=== PATIENT | female | born 1970 | race Two or more races ===

== ENCOUNTER 2020-07-29 09:50 | Outpatient (REF) | payer MEDICAID, SELFPAY ==
[2020-08-02 15:47] LABS: HPV mRNA E6/E7 rflx Not Detected (Not Detected)
== END 2020-07-29 09:51 | disposition home or self-care (01) ==
LOC: HO.LAB 09:50
PROVIDERS: PCP Internal Medicine; Visit Provider Obstetrics & Gynecology
DX: Z12.4 Encounter for screening for malignant neoplasm of cervix (principal)
CPT/HCPCS: 36415; 87624; 88141; 88142

== ENCOUNTER 2020-08-18 16:18 | Emergency (ER) | payer MEDICAID, SELFPAY ==
[2020-08-18 19:21] VITALS: BP 105/61; PULSE 76; RESP 14; TEMP 35.9; O2SAT 99; BMI 46.6
--- NOTE | 2020-08-18 19:40 | XR_ITS ---
EXAMINATION: X-RAY LEFT SHOULDER X-RAY LEFT ELBOW CLINICAL INFORMATION: Fall, pain COMPARISON: None TECHNIQUE: Left shoulder 3 views. Left elbow 3 views. FINDINGS: Shoulder: No visible acute fracture or dislocation. Mild AC joint arthritis. No abnormal soft tissue calcification. Elbow: Normal alignment. No visible acute fracture or dislocation. No significant joint effusion. XR/XR elbow LT 2V IMPRESSION: No radiographic evidence of discrete acute fracture.
--- NOTE | 2020-08-18 19:40 | XR_ITS ---
EXAMINATION: XR KNEE, LEFT CLINICAL INFORMATION: Fall, pain COMPARISON: None TECHNIQUE: Two views of the left knee. FINDINGS: No visible acute fracture or dislocation. Marginal degenerative spurring. No significant joint effusion. XR/XR knee LT 2V IMPRESSION: Marginal degenerative spurring. No evidence of acute fracture.
--- NOTE | 2020-08-18 19:40 | XR_ITS ---
EXAMINATION: XR CERVICAL SPINE CLINICAL INFORMATION: Fall, pain. COMPARISON: None TECHNIQUE: 5 views FINDINGS: Cervical spine is visualized from C1-C6 level. Normal alignment. No prevertebral soft tissue swelling. No acute fractures seen. Vertebral body heights are maintained. Mild multilevel disc degenerative changes. On the swimmer's view, limiting evaluation of the cervicothoracic junction. Base of the dens is intact. Lung apices appear clear. XR/XR cervical spine 2V IMPRESSION: Cervical spine is visualized from C1-C6 level. No acute fractures evident in the visualized cervical spine.
--- NOTE | 2020-08-18 19:40 | XR_ITS ---
EXAMINATION: XR HIP, LEFT CLINICAL INFORMATION: Fall, left hip pain COMPARISON: None TECHNIQUE: Two views of the left hip. Pelvis one view. FINDINGS: Left hip: No visible acute fracture or dislocation. Joint space is maintained. Pelvis: Right hip joint space is maintained. No visible acute right hip fracture. No discrete pelvic fractures seen. SI joints, symphysis pubis intact. Probable phleboliths in the pelvis. XR/XR hip LT min 2V IMPRESSION: No radiographically evident acute fracture or dislocation.
--- NOTE | 2020-08-18 19:40 | XR_ITS ---
EXAMINATION: X-RAY LEFT SHOULDER X-RAY LEFT ELBOW CLINICAL INFORMATION: Fall, pain COMPARISON: None TECHNIQUE: Left shoulder 3 views. Left elbow 3 views. FINDINGS: Shoulder: No visible acute fracture or dislocation. Mild AC joint arthritis. No abnormal soft tissue calcification. Elbow: Normal alignment. No visible acute fracture or dislocation. No significant joint effusion. XR/XR shoulder LT min 2V IMPRESSION: No radiographic evidence of discrete acute fracture.
--- NOTE | 2020-08-18 19:40 | XR_ITS ---
EXAMINATION: XR CHEST CLINICAL INFORMATION: Fall. Left shoulder pain. COMPARISON: 10/29/2019 TECHNIQUE: 2 views of the chest were obtained. FINDINGS: Heart is enlarged, stable. No focal consolidation, effusion, edema or pneumothorax. No acute rib fractures seen. Thoracic spine degeneration. No acute fractures identified in the thoracic spine.. XR/XR chest 2V IMPRESSION: No evidence of acute process.
--- NOTE | 2020-08-18 21:01 | ED_ITS ---
HPI - Fall General Chief Complaint: Fall Stated Complaint: fall Time Seen by Provider: 08/18/20 19:32 Source: patient Mode of arrival: ambulatory Limitations: no limitations History of Present Illness HPI Narrative: 50-year-old female with past medical history of asthma presents with injury sustained after a slip and fall on the ice. She did not hit her head but reports left elbow, left shoulder, left hip, left knee, and left-sided neck pain. She did not lose consciousness, is able to ambulate without difficulty, denies chest pain and pressure, palpitations, abdominal pain, abdominal distention, dysuria, hematuria, fevers and chills. complaint: fall Onset (ago): hour(s) (Prior to arrival) Fall from: standing Fall witnessed: no Loss of consciousness: none Prolonged down time: no Symptoms prior to fall: none Context: tripped/slipped (Slipped on ice) Location of injury: neck and pelvis Location of injury - extremities: left: shoulder, elbow and knee Severity: moderate Severity scale (1-10): 6 Quality: aching Related Data Home Medications Medication Instructions Recorded Confirmed albuterol sulfate 90 mcg/actuation 2 puff INHALATION Q6H PRN 07/29/20 07/29/20 aerosol inhaler cholecalciferol (vitamin D3) 25 25 mcg PO DAILY 07/29/20 07/29/20 mcg (1,000 unit) capsule fluticasone propionate 110 1 puff INHALATION Q12H 07/29/20 07/29/20 mcg/actuation HFA aerosol inhaler triamcinolone acetonide 0.5 % 1 appl TOPICAL DAILY 07/29/20 07/29/20 topical cream Allergies Allergy/AdvReac Type Severity Reaction Status Date / Time No Known Allergies Allergy Verified 08/18/20 19:21 [No Known Allergies*] Review of Systems Review of Systems: Constitutional: No Fever, No Chills ENT/Mouth: No Ear Pain, No Hoarseness, No sore throat Eyes: No Eye Pain, No Swelling, No Redness, No Foreign Body Cardiovascular: No Chest Pain, No SOB Respiratory: No Cough, No Dyspnea Gastrointestinal: No Nausea, No Vomiting, No Diarrhea, No abdominal Pain Genitourinary: No Dysuria, No Hematuria Musculoskeletal: positive neck, left shoulder, left elbow, left hip, and left knee pain, No Myalgias, No Joint Swelling Skin: No Skin lacerations, No rash Neuro: No Weakness, No Numbness, No Paresthesias, No Loss of Consciousness, No Dizziness, No Headache Psych: No Anxiety/Panic, No Depression Heme/Lymph: no easy bruising, no Lymphadenopathy Endocrine: No Polyuria, No Polydipsia Yes all other systems are reviewed and are negative [facility] Past Medical History Attestation statement: The following information was validated with the patient. Source: old records reviewed Medical History (Updated 08/18/20 @ 21:13 by Iva Clark NP) Asthma Hypovitaminosis D Surgical History History of bilateral tubal ligation History of Hx of cholecystectomy Social History Social History Alcohol intake: current Alcohol intake frequency: does not drink Smoking Status: Current some day smoker Use of substances other than those prescribed or required for medical reasons: No Advance Directives: No Advance Directives Information Provided: Yes Sexual orientation: Straight/Heterosexual Gender identity: female Physical Exam Vital Signs: Vital Signs: Last Vital Signs Temp 96.6 F L 08/18/20 19:21 Pulse 66 08/18/20 21:46 Resp 17 08/18/20 21:46 BP 114/66 08/18/20 21:46 Pulse Ox 96 08/18/20 21:46 Body Mass Index 46.6 Appearance: Alert. Oriented X3. No acute distress. Eyes: Pupils equal, round and reactive to light. ENT: Pharynx normal. Neck: Normal inspection. Neck supple. CVS: Normal heart rate and rhythm. Pulses normal. Respiratory: No respiratory distress. Breath sounds normal. Abdomen: Soft and nontender. Skin: Skin warm and dry. Normal skin color. Normal skin turgor. Extremities: No lower extremity edema. Neuro: No motor deficit. No sensory deficit. Course Course Course Narrative: 50-year-old female with past medical history of asthma presents with injury sustained from a slip and fall on the ice today. Is she did not hit her head, did not lose consciousness, and did not have a prolonged down time. She reports neck pain, left shoulder, left elbow, left hip and left knee pain. No focal neural deficits, cranial nerves 2-12 intact, no indication of cauda equina, gait well balanced well coordinated. Plan of care is for x- rays. Vital signs note that her temperature is 96.6?, this is incorrect her temperature is 97.9? oral taken by this LIGHT RAIL TRANSIT OPERATOR. X-rays negative for acute findings requiring emergent intervention. Plan of care is to discharge home with Tylenol and Motrin, follow-up with primary care as needed. Patient verbalized understanding of and agrees to plan of care to discharge home. MDM - Fall Differential Diagnosis Differential diagnosis: Likely dislocation, fracture and compression fracture Medical Records Attestation: I reviewed the patient's medical records. Lab Data Attestation: I reviewed the patient's lab results. Imaging Data Cervical spine x-ray: Attestation: I personally reviewed and interpreted this imaging study as follows: Radiologist's impression: EXAMINATION: XR CERVICAL SPINE CLINICAL INFORMATION: Fall, pain. COMPARISON: None TECHNIQUE: 5 views FINDINGS: Cervical spine is visualized from C1-C6 level. Normal alignment. No prevertebral soft tissue swelling. No acute fractures seen. Vertebral body heights are maintained. Mild multilevel disc degenerative changes. On the swimmer's view, limiting evaluation of the cervicothoracic junction. Base of the dens is intact. Lung apices appear clear. XR/XR cervical spine 2V IMPRESSION: Cervical spine is visualized from C1-C6 level. No acute fractures evident in the visualized cervical spine. Chest x-ray: Attestation: I personally reviewed and interpreted this imaging study as follows: Radiologist's impression: EXAMINATION: XR CHEST CLINICAL INFORMATION: Fall. Left shoulder pain. COMPARISON: 10/29/2019 TECHNIQUE: 2 views of the chest were obtained. FINDINGS: Heart is enlarged, stable. No focal consolidation, effusion, edema or pneumothorax. No acute rib fractures seen. Thoracic spine degeneration. No acute fractures identified in the thoracic spine.. XR/XR chest 2V IMPRESSION: No evidence of acute process. Shoulder and elbow x-ray: Attestation: I personally reviewed and interpreted this imaging study as follows: Radiologist's impression: EXAMINATION: X-RAY LEFT SHOULDER X-RAY LEFT ELBOW CLINICAL INFORMATION: Fall, pain COMPARISON: None TECHNIQUE: Left shoulder 3 views. Left elbow 3 views. FINDINGS: Shoulder: No visible acute fracture or dislocation. Mild AC joint arthritis. No abnormal soft tissue calcification. Elbow: Normal alignment. No visible acute fracture or dislocation. No significant joint effusion. XR/XR shoulder LT min 2V IMPRESSION: No radiographic evidence of discrete acute fracture. Hip and knee x-ray: Attestation: I personally reviewed and interpreted this imaging study as follows: Radiologist's impression: EXAMINATION: XR HIP, LEFT CLINICAL INFORMATION: Fall, left hip pain COMPARISON: None TECHNIQUE: Two views of the left hip. Pelvis one view. FINDINGS: Left hip: No visible acute fracture or dislocation. Joint space is maintained. Pelvis: Right hip joint space is maintained. No visible acute right hip fracture. No discrete pelvic fractures seen. SI joints, symphysis pubis intact. Probable phleboliths in the pelvis. XR/XR hip LT min 2V IMPRESSION: No radiographically evident acute fracture or dislocation. Discharge Plan Discharge Clinical Impression: Fall Qualifiers: Encounter type: initial encounter Qualified Code(s): W19.XXXA - Unspecified fall, initial encounter Patient Disposition: Home, Self-Care Instructions: Cervical Strain (ED), Shoulder Pain (ED) Additional Instructions: Usted fue evaluado por lesiones sufridas por un resbal?n y ca?da sobre el hielo. Las radiograf?as del nitza, el hombro geeta del t?rax, el codo geeta, la cadera izquierda y la rodilla izquierda son negativas para los hallazgos a gudos que requieren angelic intervenci?n emergente. Si el dolor persiste, por favor rocky un seguimiento con angeles m?dico de atenci?n primaria. Use Tylenol y Motrin seg?n sea necesario para el dolor. Por favor considere hacer un seguimiento con [employer] si el dolor de hombro contin?a. Llame y pida angelic jose. Lucy por elegir johan departamento de emergencias para la evaluaci?n. Por favor, rocky un seguimiento con el m?dico de atenci?n primaria seg?n sea necesario. Regrese al servicio de urgencias para cualquier s?ntoma nuevo, preocupante o que empeore. You were evaluated for injury sustained from a slip and fall on the ice. X-rays of the neck, chest left shoulder, left elbow, left hip and left knee are negative for acute findings requiring emergent intervention. If pain persists please follow-up with your primary care physician. Use Tylenol and Motrin as needed for pain. Please consider following up with Orthopedics if shoulder pain continues. Please call and ask for an appointment. Thank you for choosing this emergency department for evaluation. Please follow-up with primary care physician as needed. Return to the emergency department for any new, concerning, or worsening symptoms. Prescriptions: No Action triamcinolone acetonide 0.5 % cream 1 appl topical DAILY RF: 0 cholecalciferol (vitamin D3) 25 mcg (1,000 unit) capsule 25 mcg PO DAILY RF: 0 albuterol sulfate 90 mcg/actuation HFA aerosol inhaler 2 puff inhalation Q6H PRNRF: 0 Flovent HFA 110 mcg/actuation HFA aerosol inhaler 1 puff inhalation Q12H RF: 0 Referrals: Ian Vargas PA-C [Physician Custodial Maintenance Worker] - 2 days (Left shoulder injury from fall) Interventions: ED Discharge Assessment Last Done: 08/18/20 21:47 Discharge Date/Time: 08/18/20 22:15
[2020-08-18 21:46] VITALS: BP 114/66; PULSE 66; RESP 17; O2SAT 96
== END 2020-08-18 22:15 | disposition home or self-care (01) ==
PROVIDERS: Emergency Provider Emergency Medicine; PCP Internal Medicine
DX: S16.1XXA Strain of muscle, fascia and tendon at neck level, initial encounter (principal); W00.0XXA Fall on same level due to ice and snow, initial encounter; G89.11 Acute pain due to trauma; M25.512 Pain in left shoulder; M25.522 Pain in left elbow; M25.552 Pain in left hip; M25.562 Pain in left knee; F17.200 Nicotine dependence, unspecified, uncomplicated; Y93.9 Activity, unspecified; Y92.014 Private driveway to single-family (private) house as the place of occurrence of the external cause; Y99.9 Unspecified external cause status
CPT/HCPCS: 71046; 72040; 73030; 73070; 73502; 73560; 99283; 99284

== ENCOUNTER 2020-09-13 15:44 | Emergency (ER) | payer MEDICAID, SELFPAY ==
--- NOTE | ~2020-09-13 | XR_ITS ---
EXAMINATION: XR CHEST CLINICAL INFORMATION: Chest pain COMPARISON: Chest x-ray 08/18/2020 TECHNIQUE: 2 views of the chest were obtained. FINDINGS: The heart size is enlarged. No acute changes of the chest. There is no pulmonary vascular congestion. There is no focal airspace disease. There is no pleural effusion and there is no pneumothorax. There is mild degenerative spondylosis of spine. There are surgical clips in the upper abdomen. XR/XR chest 2V IMPRESSION: Cardiomegaly. No acute abnormality of chest.
--- NOTE | 2020-09-13 15:50 | ECG_ITS ---
Test Reason : CHEST PAIN Blood Pressure : / mmHG Vent. Rate : 063 BPM Atrial Rate : 063 BPM P-R Int : 160 ms QRS Dur : 074 ms QT Int : 402 ms P-R-T Axes : 050 038 035 degrees QTc Int : 411 ms Normal sinus rhythm Normal ECG When compared with ECG of 29-OCT-2019 19:08, No significant change was found Referred By: Generic ED Physician Electronically Signed By:KAIT MCMILLAN
[2020-09-13 15:51] VITALS: BP 117/55; PULSE 66; RESP 18; TEMP 36.7; O2SAT 97; BMI 34.8
[2020-09-13 16:29] LABS: MANUAL DIFF FLAG NO
[2020-09-13 16:37] LABS: Basophils Percent Auto 0.4 % (0-2); Eosinophils Absolute Auto 0.2 X10*3/uL (0.0-0.4); Eosinophils Percent Auto 2.8 % (0-4); Hematocrit 40.8 % (37-47); Hemoglobin 13.7 g/dl (12.0-16.0); Imm Gran Abs Auto 0.02 X10*3/uL (0.00-0.03); Imm Gran Pct Auto 0.2 % (0.0-0.4); Lymphocytes Absolute Auto 1.9 X10*3/uL (1.2-4.9); Lymphocytes Percent Auto 22.7 % (20-40); Mean Corpuscular HGB Conc 33.6 g/dl (31.0-35.0); Mean Corpuscular Hemoglobin 31.6 pg (27.0-33.0); Mean Corpuscular Volume 94.2 fL (80-98); Mean Platelet Volume 10.9 fL (9.4-12.3); Monocytes Absolute Auto 0.5 X10*3/uL (0.1-1.2); Monocytes Percent Auto 6.6 % (2-11); Neutrophils Absolute Auto 5.5 X10*3/uL (2.0-8.3); Neutrophils Percent Auto 67.3 % (45-73); Platelet Count 211 X10*3/uL (160-400); Red Blood Count 4.33 X10*6/uL (4.20-5.50); Red Cell Distribution Width 12.3 % (11.0-16.0); White Blood Count 8.2 X10*3/uL (4.8-10.8)
[2020-09-13 16:52] LABS: Anion Gap 12 (12-20); Blood Urea Nitrogen 14 mg/dL (9-16); Carbon Dioxide 27 mmol/L (22-29); Chloride 107 mmol/L (96-108); Creatinine Clr Calc Pharmacy 102.8; Estimated Glomerular Filt Rate > 60; Glucose Random 88 mg/dL (60-115); Potassium 4.2 mmol/L (3.3-5.1); Sodium 142 mmol/L (135-145)
[2020-09-13 16:57] LABS: Troponin-I High Sensitivity < 3.5 ng/L (<3.5-17.0)
[2020-09-13 20:00] VITALS: BP 119/52; PULSE 61; RESP 16; TEMP 36.9; O2SAT 98
--- NOTE | 2020-09-13 21:05 | ED.CHESTPAIN ---
HPI - Chest Pain General Chief Complaint: Chest Pain Stated Complaint: Chest pain Source: patient Mode of arrival: ambulatory Limitations: language barrier History of Present Illness HPI narrative: 50-year-old female with past medical history of asthma and cholecystectomy presents with intermittent sharp left-sided chest pain that woke her up this morning. This pain is not associated with fevers or chills, shortness of breath, palpitations, abdominal pain, abdominal distention, dysuria, hematuria, melena, hematochezia, edema, dizziness, lightheadedness, or diaphoresis. Related Data Home Medications Medication Instructions Recorded Confirmed albuterol sulfate 90 mcg/actuation 2 puff INHALATION Q6H PRN 07/29/20 07/29/20 aerosol inhaler cholecalciferol (vitamin D3) 25 25 mcg PO DAILY 07/29/20 07/29/20 mcg (1,000 unit) capsule fluticasone propionate 110 1 puff INHALATION Q12H 07/29/20 07/29/20 mcg/actuation HFA aerosol inhaler triamcinolone acetonide 0.5 % 1 appl TOPICAL DAILY 07/29/20 07/29/20 topical cream Allergies Allergy/AdvReac Type Severity Reaction Status Date / Time No Known Allergies Allergy Verified 09/13/20 15:51 [No Known Allergies*] Review of Systems Review of Systems: Constitutional: No Weight loss, No Fever, No Chills, No Night Sweats, No Fatigue, No Malaise ENT/Mouth: No Hearing loss, No Ear Pain, No Nasal Congestion, No Sinus Pain, No Hoarseness, No sore throat, No Rhinorrhea, No Swallowing Difficulty Eyes: No Eye Pain, No Swelling, No Redness, No Foreign Body, No Discharge, No Vision Changes Cardiovascular: Positive intermittent sharp left-sided chest Pain, no SOB, no Dyspnea on Exertion, No Orthopnea, No Edema, No Palpitations Respiratory: No Cough, No Sputum, No Wheezing, No Smoke Exposure, No Dyspnea Gastrointestinal: No Nausea, No Vomiting, No Diarrhea, No abdominal Pain, No Hematochezia, No Melena Genitourinary: No irregular bleeding, No Dysuria, No Urinary Frequency, No Hematuria, No Urinary Incontinence, No Urgency, No Flank Pain, No Urinary Flow Changes, No Hesitancy Musculoskeletal: No joint pain, No Myalgias, No Joint Swelling Skin: No Skin Lesions, No rash Neuro: No Weakness, No Numbness, No Paresthesias, No Loss of Consciousness, No Dizziness, No Headache Psych: No Anxiety/Panic, No Depression, No SI/HI/AH/VH Heme/Lymph: No Bruising, No Bleeding,No Lymphadenopathy Endocrine: No Polyuria, No Polydipsia, No Temperature Intolerance Yes all other systems are reviewed and are negative [facility] Past Medical History Attestation statement: The following information was validated with the patient. Source: old records reviewed Medical History Asthma Hypovitaminosis D Surgical History History of bilateral tubal ligation History of Hx of cholecystectomy Social History Social History Alcohol intake: never Smoking Status: Never smoker Use of substances other than those prescribed or required for medical reasons: No Advance Directives: No Advance Directives Information Provided: Yes Sexual orientation: Straight/Heterosexual Gender identity: female Physical Exam Vital Signs: Vital Signs: Last Vital Signs Temp 98.4 F 09/13/20 20:00 Pulse 61 09/13/20 20:00 Resp 16 09/13/20 20:00 BP 119/52 L 09/13/20 20:00 Pulse Ox 98 09/13/20 20:00 Body Mass Index 34.8 Appearance: Alert. Oriented X3. No acute distress. Eyes: Pupils equal, round and reactive to light. EOMI, sclera nonicteric ENT: Pharynx normal. Moist mucous membranes Neck: Normal inspection. Neck supple. No JVD CVS: Normal heart rate and rhythm. Pulses normal. Reproducible pain to the left chest wall on palpation Respiratory: No respiratory distress. Lung sounds clear to auscultation all lobes Abdomen: Soft and nontender. Skin: Skin warm and dry. Normal skin color. Normal skin turgor. Extremities: No lower extremity edema. Moves all extremities against resistance Neuro: No motor deficit. No sensory deficit. Cranial nerves 2-12 intact, gait well balanced well coordinated Course Course Course Narrative: 50-year-old female with past medical history of asthma and cholecystectomy presents with intermittent sharp left-sided chest pain that is reproducible on palpation. Lab values are unremarkable, troponin is negative, EKG is normal sinus, chest x-ray shows cardiomegaly with spondylosis of the spine which are chronic findings. Wells PE score is 0, highly unlikely that this is ACS. COVID test is negative. Discussion with patient regarding plan of care discharge home, aircraft design engineer utilized for all correspondence, Google translate utilized for discharge instructions. Patient verbalized understanding of and agrees to plan of care. MDM - Chest Pain Differential Diagnosis Differential diagnosis: Likely fracture of rib, pneumothorax, atypical chest pain, st elevation myocardial infarction, costochondritis and chest pain Medical Records Data Attestation: I reviewed the patient's medical records. Lab Data Attestation: I reviewed the patient's lab results. Result diagrams: 09/13/20 16:02 09/13/20 16:02 Labs: Lab Results 09/13/20 09/13/20 09/13/20 Range/Units 16:02 16:02 16:02 WBC 8.2 (4.8-10.8) X10*3/uL RBC 4.33 (4.20-5.50) X10*6/uL Hgb 13.7 (12.0-16.0) g/dl Hct 40.8 (37-47) % MCV 94.2 (80-98) fL MCH 31.6 (27.0-33.0) pg MCHC 33.6 (31.0-35.0) g/dl RDW 12.3 (11.0-16.0) % Plt Count 211 (160-400) X10*3/uL MPV 10.9 (9.4-12.3) fL Immature Gran % (Auto) 0.2 (0.0-0.4) % Neut % (Auto) 67.3 (45-73) % Lymph % (Auto) 22.7 (20-40) % [place] % (Auto) 6.6 (2-11) % Eos % (Auto) 2.8 (0-4) % Baso % (Auto) 0.4 (0-2) % Lymph # (Auto) 1.9 (1.2-4.9) X10*3/uL [place] # (Auto) 0.5 (0.1-1.2) X10*3/uL Eos # (Auto) 0.2 (0.0-0.4) X10*3/uL Baso # (Auto) 0.0 (0.0-0.2) X10*3/uL Abs Immat Gran (auto) 0.02 (0.00-0.03) X10*3/uL Absolute Neuts (auto) 5.5 (2.0-8.3) X10*3/uL Absolute Nucleated RBC 0.000 (0.0-0.012) X10*3/uL Nucleated RBC % (auto) 0.0 (0.0-0.2) /100WBC Hold Blue Top SEE NOTE Sodium 142 (135-145) mmol/L Potassium 4.2 (3.3-5.1) mmol/L Chloride 107 (96-108) mmol/L Carbon Dioxide 27 (22-29) mmol/L Anion Gap 12 (12-20) BUN 14 (9-16) mg/dL Creatinine 0.72 (0.5-1.4) mg/dL Estim Creat Clear Calc 102.8 Estimated GFR > 60 Random Glucose 88 (60-115) mg/dL Calcium 9.0 (8.4-10.2) mg/dL Troponin I High Sens (<3.5-17.0) ng/L COVID-19 ([facility]) (Negative) COVID-19 Clin Com 09/13/20 09/13/20 Range/Units 16:02 21:10 WBC (4.8-10.8) X10*3/uL RBC (4.20-5.50) X10*6/uL Hgb (12.0-16.0) g/dl Hct (37-47) % MCV (80-98) fL MCH (27.0-33.0) pg MCHC (31.0-35.0) g/dl RDW (11.0-16.0) % Plt Count (160-400) X10*3/uL MPV (9.4-12.3) fL Immature Gran % (Auto) (0.0-0.4) % Neut % (Auto) (45-73) % Lymph % (Auto) (20-40) % [place] % (Auto) (2-11) % Eos % (Auto) (0-4) % Baso % (Auto) (0-2) % Lymph # (Auto) (1.2-4.9) X10*3/uL [place] # (Auto) (0.1-1.2) X10*3/uL Eos # (Auto) (0.0-0.4) X10*3/uL Baso # (Auto) (0.0-0.2) X10*3/uL Abs Immat Gran (auto) (0.00-0.03) X10*3/uL Absolute Neuts (auto) (2.0-8.3) X10*3/uL Absolute Nucleated RBC (0.0-0.012) X10*3/uL Nucleated RBC % (auto) (0.0-0.2) /100WBC Hold Blue Top Sodium (135-145) mmol/L Potassium (3.3-5.1) mmol/L Chloride (96-108) mmol/L Carbon Dioxide (22-29) mmol/L Anion Gap (12-20) BUN (9-16) mg/dL Creatinine (0.5-1.4) mg/dL Estim Creat Clear Calc Estimated GFR Random Glucose (60-115) mg/dL Calcium (8.4-10.2) mg/dL Troponin I High Sens < 3.5 (<3.5-17.0) ng/L COVID-19 ([facility]) Negative (Negative) COVID-19 Clin Com See Note Imaging Data Chest x-ray: Attestation: I personally reviewed and interpreted this imaging study as follows: Radiologist's impression: EXAMINATION: XR CHEST CLINICAL INFORMATION: Chest pain COMPARISON: Chest x-ray 08/18/2020 TECHNIQUE: 2 views of the chest were obtained. FINDINGS: The heart size is enlarged. No acute changes of the chest. There is no pulmonary vascular congestion. There is no focal airspace disease. There is no pleural effusion and there is no pneumothorax. There is mild degenerative spondylosis of spine. There are surgical clips in the upper abdomen. XR/XR chest 2V IMPRESSION: Cardiomegaly. No acute abnormality of chest. ECG Data ECG #1: Attestation: I personally reviewed and interpreted this ECG as follows: ECG interpretation date: 09/13/20 ECG interpretation time: 15:53 Interpretation: Ventricular rate 63 beats per minute, SD interval 160, QRS 74, QT 402, QTC 411, normal sinus rhythm, normal EKG prior EKG is unavailable secondary to system 130 error Scores Heart Score History: -1- moderately suspicious ECG: -0- normal Age: -1- >45 - <65 Risk factory: -1- 1 or 2 risk factors Troponin: -0- < or = normal limit Score: 3 Risk: 1.7% Wells DVT Alternative Dx as likely as or more likely than DVT: -2 Score: -2 2-tier Risk: unlikely risk (5%) 3-tier Risk: low risk (3%) Discharge Plan Discharge Clinical Impression: Atypical chest pain Patient Disposition: Home, Self-Care Instructions: Noncardiac Chest Pain (ED) Additional Instructions: Te evaluaron para detectar un dolor everardo intermitente en el lado geeta de la pared tor?cica. El electrocardiograma es el ritmo sinusal normal, la troponina que es angelic enzima card?chantal es negativa. Los valores de laboratorio son normales. La prueba covid es negativa. La radiograf?a de t?rax muestra un coraz?n agrandado cr?josephine sin hallazgos que requieran angelic intervenci?n emergente. Por favor, rocky un seguimiento con angeles m?dico de atenci?n primaria esta semana para un mayor trabajo. Regrese al servicio de emergencias inmediatamente si el dolor persiste o para cualquier s?ntoma emergente. Lucy por elegir johan departamento de emergencias para angeles evaluaci?n. Por favor, rocky un seguimiento con el m?dico de atenci?n primaria seg?n sea necesario. Regrese al servicio de emergencias para cualquier s?ntoma nuevo, preocupante o que empeore. You were evaluated for an intermittent sharp pain to the left side of the chest wall. EKG is normal sinus rhythm, your troponin which is a cardiac enzyme is negative. Your lab values are all normal. Your COVID test is negative. Your chest x-ray shows chronic enlarged heart without findings requiring emergent intervention. Please follow-up with your primary care physician this week for further workup. Return to the emergency department immediately if pain persists or for any emergent symptoms. Thank you for choosing this emergency department for evaluation. Please follow-up with primary care physician as needed. Return to the emergency department for any new, concerning, or worsening symptoms. Prescriptions: No Action triamcinolone acetonide 0.5 % cream 1 appl topical DAILY RF: 0 cholecalciferol (vitamin D3) 25 mcg (1,000 unit) capsule 25 mcg PO DAILY RF: 0 albuterol sulfate 90 mcg/actuation HFA aerosol inhaler 2 puff inhalation Q6H PRNRF: 0 Flovent HFA 110 mcg/actuation HFA aerosol inhaler 1 puff inhalation Q12H RF: 0 Interventions: ED Discharge Assessment Last Done: 09/13/20 22:50 Discharge Date/Time: 09/13/20 22:51
[2020-09-13 21:38] LABS: COVID-19 Test Negative (Negative)
== END 2020-09-13 22:51 | disposition home or self-care (01) ==
PROVIDERS: Nurse Practitioner Family; Emergency Provider Emergency Medicine; PCP Internal Medicine
DX: R07.89 Other chest pain (principal); Z20.822 Contact with and (suspected) exposure to COVID-19; J45.909 Unspecified asthma, uncomplicated; Z90.49 Acquired absence of other specified parts of digestive tract
CPT/HCPCS: 36415; 71046; 80048; 84484; 85025; 87635; 93005; 99284

== ENCOUNTER → 2020-10-22 11:38 | Outpatient (BNVA) | payer MEDICAID, SELFPAY | PROVIDERS: PCP Internal Medicine; Visit Provider Nurse Practitioner ==

== ENCOUNTER 2020-12-08 10:18 | Day surgery (SDC) | payer MEDICAID, SELFPAY ==
[2020-12-02 11:34] VITALS: BMI 48.4
--- NOTE | 2020-12-07 10:35 | P.CONAN_ITS ---
Documented by User: Alexus Mini 12/07/20 10:36 HPI - Anesthesia Eval Consult details Narrative: 50yo F for Colonoscopy PMFSH Active Problems Active Problems: All Active Problems (Updated 10/22/20 @ 11:42 by KERRI Pope) Colon cancer screening (Acute) Well woman exam (Acute) Past Medical History Medical History Asthma Hypovitaminosis D Surgical History Surgical History History of bilateral tubal ligation History of Hx of cholecystectomy Social History Social History (Updated 10/22/20 @ 11:41 by Yasmin Calvillo CMA) Household Members: Children Alcohol intake: current Alcohol intake frequency: holidays/special occasions only Use of substances other than those prescribed or required for medical reasons: No Have you been hit, kicked, punched, or otherwise hurt by someone within the past year? 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 Sexual orientation: Straight/Heterosexual Gender identity: female Meds Allergies Allergy/AdvReac Type Severity Reaction Status Date / Time No Known Allergies Allergy Verified 12/02/20 11:33 [No Known Allergies*] Home Medications Medication Instructions Recorded Confirmed Last Taken Type albuterol sulfate 90 mcg/actuation 2 puff INHALATION Q6H PRN 07/29/20 12/02/20 Unknown History aerosol inhaler cholecalciferol (vitamin D3) 25 25 mcg PO DAILY 07/29/20 12/02/20 Unknown History mcg (1,000 unit) capsule fluticasone propionate 110 1 puff INHALATION Q12H 07/29/20 12/08/20 12/08/20 History mcg/actuation HFA aerosol inhaler triamcinolone acetonide 0.5 % 1 appl TOPICAL DAILY 07/29/20 12/02/20 Unknown History topical cream ergocalciferol (vitamin D2) 1 cap PO QWEEK 12/02/20 12/02/20 Unknown History Exam Exam Date and Time: December 07, 2020 1035 Height,Weight and Vital Signs: Height 5 ft 2 in Weight 120.202 kg Pertinent Lab Results Pertinent Lab Results: Laboratory Tests 09/13/20 09/13/20 16:02 16:02 WBC 8.2 Hgb 13.7 Hct 40.8 Plt Count 211 Sodium 142 Potassium 4.2 Chloride 107 Carbon Dioxide 27 BUN 14 Creatinine 0.72 Narrative Narrative: EKG 09/2020 Vent. Rate : 063 BPM Atrial Rate : 063 BPM P-R Int : 160 ms QRS Dur : 074 ms QT Int : 402 ms P-R-T Axes : 050 038 035 degrees QTc Int : 411 ms Normal sinus rhythm Normal ECG When compared with ECG of 29-OCT-2019 19:08, No significant change was found Assessment and Plan Assessment Anesthesia Assessment: Chart Reviewed Documented by User: Pina Gamez 12/08/20 11:27 [facility] Past Medical History Medical History Asthma Hypovitaminosis D Surgical History Surgical History History of bilateral tubal ligation History of Hx of cholecystectomy Social History Social History (Updated 10/22/20 @ 11:41 by Yasmin Calvillo CMA) Household Members: Children Alcohol intake: current Alcohol intake frequency: holidays/special occasions only Use of substances other than those prescribed or required for medical reasons: No Have you been hit, kicked, punched, or otherwise hurt by someone within the past year? 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 Sexual orientation: Straight/Heterosexual Gender identity: female Meds Allergies Allergy/AdvReac Type Severity Reaction Status Date / Time No Known Allergies Allergy Verified 12/02/20 11:33 [No Known Allergies*] Home Medications Medication Instructions Recorded Confirmed Last Taken Type albuterol sulfate 90 mcg/actuation 2 puff INHALATION Q6H PRN 07/29/20 12/02/20 U nknown History aerosol inhaler cholecalciferol (vitamin D3) 25 25 mcg PO DAILY 07/29/20 12/02/20 Unknown History mcg (1,000 unit) capsule fluticasone propionate 110 1 puff INHALATION Q12H 07/29/20 12/08/20 12/08/20 History mcg/actuation HFA aerosol inhaler triamcinolone acetonide 0.5 % 1 appl TOPICAL DAILY 07/29/20 12/02/20 Unknown History topical cream ergocalciferol (vitamin D2) 1 cap PO QWEEK 12/02/20 12/02/20 Unknown History Exam Airway Mallampati Class: II TM Dist: >3cm Neck ROM: Full Heart: RRR Lungs: CTA Assessment and Plan Assessment Anesthesia Assessment: Anesthesia Plan Discussed and Chart Reviewed Final Anesthetic Review NPO: Yes (Inhaler) ASA Class: III Final Preanesthetic Review: No Changes in Pt Med Stat and Consent Obtained/Reviewed Patient Risk: Intermediate Procedure Risk: Intermediate Anesthetic Plan Anesthetic Plan: MAC: Disposition: Standard PACU
[2020-12-08 10:39] VITALS: BP 127/82; PULSE 70; RESP 16; TEMP 36.4; O2SAT 100
[2020-12-08] MEDS: Lactated Ringers 1,000 ML 100 ML IVCONT (10:59)
--- NOTE | 2020-12-08 11:18 | MHC.SHP ---
Pre-Procedural Eval Section B Chief Complaint: Screening Relevant Family History (Specify if Yes): No Relevant Social History: None Present Medications: see Short Stay Collaborative assessment Medical History: Significant History (Asthma Hypovitaminosis D) History of Previous Operations: Relevant previous surgery/procedure and date(s) (History of bilateral tubal ligation History of Hx of cholecystectomy) Allergies: Allergies Allergy/AdvReac Type Severity Reaction Status Date / Time No Known Allergies Allergy Verified 12/02/20 11:33 [No Known Allergies*] Review of Systems Sugical H&P ROS: Negative: Constitution, Cardiovascular, Respiratory, Neurological, Psychiatric, Hem-Onc, Allergic/Immunologic, Gastrointestinal, Genitourinary, Musculoskeletal, Integumentary, Endocrine and Eyes/Ears/Nose/Throat Exam Surgical H&P Exam: Normal: HEENT, Normal: Heart, Normal: Lungs, Normal: Extremities, Normal: Abdomen, Normal: Skin and Normal: Neurological Plan Diagnosis/Plan: Unchanged I have reviewed the history and physical and performed a pertinent physical examination on my patient. No changes have occurred unless specified.
--- NOTE | 2020-12-08 11:54 | P.BOP_ITS ---
Brief Operative Note Date of Service: 12/08/20 Pre-op diagnosis: colon screening Post-op diagnosis: same Procedure: see op note Surgeon: Asia Patel MD Anesthesia: MAC Was an [employer] Salesperson used for this Procedure?: No Estimated blood loss (mL): 0 Condition: stable Disposition: PACU
--- NOTE | 2020-12-08 11:54 | P.OP_ITS ---
Operative Note Operative Note Date of Service: 12/08/20 Narrative: Operative Information Procedure Description: Colonoscopy COLONOSCOPY Instrument: Olympus variable stiffness pediatric scope 190L Colonoscopy Monitoring: Vital signs and clinical assessment, continuous EKG monitoring, Pulse oximetry, Carbon Dioxide monitoring and blood pressure monitoring were done throughout the procedure. Colon withdrawal time was 9 minutes. Procedure: The patient was placed in the left lateral decubitis position and pre-procedure medications were administered. After a digital rectal examination of the ano-rectum, the video colonoscope was inserted into the rectum and advanced through the colon to the cecum/TI. The colonoscope was slowly withdrawn in a retrograde panoramic fashion and the colon mucosa was carefully examined including a retroflexed view of the rectum. Findings and interventions are described below. Procedure Difficulty:moderate, pressure applied to reach cecum Findings: Terminal Ileum-normal Cecum:normal Ascending Colon: normal Transverse Colon -normal Descending Colon:normal Sigmoid Colon: normal Rectum: Retroflexion with small internal hemorrhoids, grade I Anorectum - normal Colon preparation: [place] Bowel Preparation Scale Right colon; 2 Transverse colon: 2 Left colon; 2 (0 = Unprepared colon segment with mucosa not seen due to solid stool that cannot be cleared. 1 = Portion of mucosa of the colon segment seen, but other areas of the colon segment not well seen due to staining, residual stool and/or opaque liquid. 2 = Minor amount of residual staining, small fragments of stool and/or opaque liquid, but mucosa of colon segment seen well. 3 = Entire mucosa of colon segment seen well with no residual staining, small fragments of stool or opaque liquid) Impression and Post Procedure Diagnosis: internal hemorrhoids Plan: High fiber diet leaflet Avoid straining at stool, epsom salts and sitz bath, anusol supps or cream as needed Repeat Colonoscopy in 10 years or earlier if clinically indicated Above findings were reviewed with the patient and relevant handouts were provided if indicated.
[2020-12-08 11:57] VITALS: BP 100/62; PULSE 75; RESP 16; TEMP 36.8; O2SAT 100
[2020-12-08 12:12] VITALS: BP 107/61; PULSE 69; RESP 18; O2SAT 100
--- NOTE | 2020-12-08 13:00 | PC.NURSE ---
[facility] [place] assisted with discharge instructions.
== END 2020-12-08 12:55 | disposition home or self-care (01) ==
PROVIDERS: PCP Internal Medicine; Visit Provider Internal Medicine Gastroenterology
PROC: 0DJD8ZZ Inspection of Lower Intestinal Tract, Via Natural or Artificial Opening Endoscopic (ICD-10-PCS; CPT 45378; principal; 2020-12-08 11:50)
DX: Z12.11 Encounter for screening for malignant neoplasm of colon (principal); K64.0 First degree hemorrhoids; J45.909 Unspecified asthma, uncomplicated; E55.9 Vitamin D deficiency, unspecified; Z90.49 Acquired absence of other specified parts of digestive tract; Z79.51 Long term (current) use of inhaled steroids; Z79.899 Other long term (current) drug therapy; Z87.891 Personal history of nicotine dependence
CPT/HCPCS: 45378

== ENCOUNTER 2021-02-24 16:10 | Emergency (ER) | payer MEDICAID, SELFPAY ==
--- NOTE | ~2021-02-24 | CT_ITS ---
EXAMINATION: CT ABDOMEN AND PELVIS WITH CONTRAST CLINICAL INFORMATION: Diffuse abdominal pain. Nausea, vomiting, diarrhea. COMPARISON: Multiple prior pelvic ultrasounds, most recent dated 04/30/2019. TECHNIQUE: Multidetector volumetric images were obtained from the superior aspect of the liver through the pubic symphysis following administration 85 mL of Omnipaque 350 intravenous contrast. Sagittal and coronal reformatted images were obtained on the technologist's workstation. Oral contrast: No This CT examination was performed using dose optimization techniques as appropriate, variously including the following: *Automated exposure control *Adjustment of mA and/or kV according to patient size (this includes techniques or standardized protocols for targeted exams where dose is matched to indication/reason for exam; i.e. extremities or head) *Use of iterative reconstruction technique DLP: 807 mGy-cm FINDINGS: LUNG BASES: Prominent fat within the left lung base which appears superior to the left hemidiaphragm. No discrete left diaphragmatic hernia. LIVER, GALLBLADDER, AND BILIARY TREE: The liver is normal in size, shape, and attenuation. No focal hepatic lesion or biliary ductal dilatation is present. Status post cholecystectomy. PANCREAS: Unremarkable. SPLEEN: Unremarkable. ADRENAL GLANDS: Unremarkable. KIDNEYS AND URETERS: The kidneys are normal in size, shape, and attenuation. No hydronephrosis, hydroureter, or calculi seen. No perinephric stranding. BLADDER: Partially distended and unremarkable. GASTROINTESTINAL TRACT: No bowel wall thickening or associated inflammatory change. No small or large bowel obstruction. Unremarkable appendix. PERITONEAL CAVITY: No intra-abdominal free air or free fluid. No intra-abdominal mass or organized fluid collection/abscess formation. ABDOMINAL WALL: Tiny, fat-containing periumbilical hernia. LYMPH NODES: Normal. VASCULAR: Unremarkable. PELVIC VISCERA: The uterus and adnexa are unremarkable. OSSEOUS STRUCTURES: Unremarkable. CT/CT abdomen pelvis w con IMPRESSION: 1. No acute intra-abdominal or intrapelvic findings to explain the patient's pain. 2. Prominent fat within the inferior aspect of the left chest without discrete left diaphragmatic hernia.
--- NOTE | ~2021-02-24 | XR_ITS ---
EXAMINATION: XR CHEST CLINICAL INFORMATION: Abnormal x-ray finding COMPARISON: 09/13/2020 TECHNIQUE: Single view view of the chest was obtained. FINDINGS: Density at the left base. Shown to be a partially fatty lesion on the CT. Correlates with the CT finding. The right lung is grossly clear. There is no failure. Compared to most recent probably and film there is mildly increasing density at the left base and this may be associated with adjacent atelectasis or infiltrate XR/XR chest 1V IMPRESSION: Density at the left base showing some mild increased opacity compared to most recent plain film of 09/13/2020 and therefore superimposed infiltrate or atelectasis versus increasing soft tissue component to this fatty lesion would be a consideration. Lipomatous tumor would need to be considered
--- NOTE | 2021-02-24 16:27 | PC.NURSE ---
awaiting american sign language interpreter for triagew
[2021-02-24 16:45] VITALS: BP 126/69; PULSE 77; RESP 16; TEMP 37.2; O2SAT 97; BMI 46.3
[2021-02-24 20:24] VITALS: BP 126/76; PULSE 74; RESP 16; O2SAT 96
[2021-02-24 20:28] LABS: MANUAL DIFF FLAG NO
[2021-02-24 20:30] LABS: Basophils Percent Auto 0.2 % (0-2); Eosinophils Absolute Auto 0.2 X10*3/uL (0.0-0.4); Eosinophils Percent Auto 1.8 % (0-4); Hematocrit 38.2 % (37-47); Hemoglobin 12.6 g/dl (12.0-16.0); Imm Gran Abs Auto 0.03 X10*3/uL (0.00-0.03); Imm Gran Pct Auto 0.4 % (0.0-0.4); Lymphocytes Absolute Auto 1.9 X10*3/uL (1.2-4.9); Lymphocytes Percent Auto 22.6 % (20-40); Mean Corpuscular Hemoglobin 30.9 pg (27.0-33.0); Mean Corpuscular Volume 93.6 fL (80-98); Mean Platelet Volume 10.5 fL (9.4-12.3); Monocytes Absolute Auto 0.5 X10*3/uL (0.1-1.2); Monocytes Percent Auto 6.2 % (2-11); Neutrophils Absolute Auto 5.9 X10*3/uL (2.0-8.3); Neutrophils Percent Auto 68.8 % (45-73); Platelet Count 242 X10*3/uL (160-400); Red Blood Count 4.08 X10*6/uL (4.20-5.50); White Blood Count 8.5 X10*3/uL (4.8-10.8)
[2021-02-24 20:31] VITALS: BP 113/62; PULSE 74; RESP 16; O2SAT 100
--- NOTE | 2021-02-24 20:39 | PC.NURSE ---
UA obtained and sent.
[2021-02-24 20:47] LABS: Glucose Urine UA NEG (NEG); Leukocyte Esterase Urine TRACE (NEG); Nitrite Urine NEG (NEG); Specific Gravity - Urine >= 1.030 (1.005-1.025); UACC Culture Trigger YES; Urine Blood NEG (NEG); Urine Ketones 5 MG/DL (NEG); Urine Protein TRACE MG/DL (NEG-TRACE)
[2021-02-24 20:49] LABS: Appearance Urine CLOUDY; Color Urine YELLOW
[2021-02-24 20:51] LABS: COVID-19 Test Negative (Negative)
[2021-02-24 20:55] LABS: Alanine Aminotransferase 98 U/L (0-31); Albumin Level 3.8 g/dL (3.5-5.0); Alkaline Phosphatase 95 U/L (39-117); Anion Gap 14 (12-20); Aspartate Amino Transferase 86 U/L (5-31); Bilirubin Direct < 0.2 mg/dL (0.0-0.5); Bilirubin Total 0.2 mg/dL (0.0-1.0); Blood Urea Nitrogen 11 mg/dL (9-16); Calcium 8.8 mg/dL (8.4-10.2); Carbon Dioxide 28 mmol/L (22-29); Chloride 106 mmol/L (96-108); Creatinine Clr Calc Pharmacy 110.9; Estimated Glomerular Filt Rate > 60; Glucose Random 105 mg/dL (60-115); Lipase 28 U/L (8-78); Potassium 3.8 mmol/L (3.3-5.1); Sodium 144 mmol/L (135-145); Total Protein 6.4 g/dL (6.5-8.0)
[2021-02-24 21:01] LABS: Bacteria Urine TRACE /LPF; RBC Urine 0-2 /HPF (0); Squamous Epithelial Cell Urine 3+ /LPF
[2021-02-24] MEDS: Famotidine/PF 20 MG/2 ML VIAL IVPUSH (21:39)
[2021-02-24] MEDS: Magnesium Hydrox/Alum Hydrox 30 ML ORAL.SUSP PO (21:39)
[2021-02-24] MEDS: ondansetron HCL 4 MG/2 ML VIAL IVPUSH (21:39)
[2021-02-24] MEDS: 0.9 % Sodium Chloride 1,000 ML 999 ML IVCONT (21:39)
[2021-02-24] MEDS: Ketorolac Tromethamine 15 MG/ML VIAL IVPUSH (21:39)
--- NOTE | 2021-02-24 21:42 | PC.NURSE ---
Medicated per SEP. Off to CT.
[2021-02-24] MEDS: iohexoL 350 MG/ML 100 ML INFUS..BTL IV (22:00)
--- NOTE | 2021-02-24 22:42 | PC.NURSE ---
XRay at bedside.
--- NOTE | 2021-02-24 23:05 | ED.ABDPAIN ---
HPI - Abdominal Pain General Chief Complaint: Abdominal Pain Stated Complaint: ABD PAIN Time Seen by Provider: 02/24/21 21:02 Source: patient Mode of arrival: ambulatory History of Present Illness HPI narrative: 51-year-old female with a past medical history of asthma, , cholecystectomy, bilateral tubal ligation, presenting to the ED complaining of diffuse abdominal pain, nausea, vomiting, and diarrhea x 12 days. Admits symptoms began after eating pork grind. Also reports dysuria. Denies fever, chills, CP/SOB, hematuria, recent travel MD elicited complaint: abdominal pain Related Data Home Medications Medication Instructions Recorded Confirmed albuterol sulfate 90 mcg/actuation 2 puff INHALATION Q6H PRN 07/29/20 12/02/20 aerosol inhaler cholecalciferol (vitamin D3) 25 25 mcg PO DAILY 07/29/20 12/02/20 mcg (1,000 unit) capsule fluticasone propionate 110 1 puff INHALATION Q12H 07/29/20 12/08/20 mcg/actuation HFA aerosol inhaler (Flovent HFA) triamcinolone acetonide 0.5 % 1 appl TOPICAL DAILY 07/29/20 12/02/20 topical cream ergocalciferol (vitamin D2) 1,250 1 cap PO QWEEK 12/02/20 12/02/20 mcg (50,000 unit) capsule Previous Rx's Medication Instructions Recorded bisacodyl 5 mg tablet,delayed 10 mg PO BEDTIME 2 Days #4 tab 10/22/20 release (Dulcolax (bisacodyl)) polyethylene glycol 3350 17 238 g PO ONCE 1 Days #238 g 10/22/20 gram/dose oral powder (Miralax) aluminum-mag hydroxide-simethicone 5 ml PO 5XD PRN #30 ml 02/25/21 200 mg-200 mg-20 mg/5 mL oral susp (Maalox Advanced) dicyclomine 20 mg tablet 20 mg PO TID PRN #14 tab 02/25/21 famotidine 20 mg tablet (Pepcid) 20 mg PO DAILY #14 tab 02/25/21 ondansetron HCl 4 mg tablet 4 mg PO Q8H PRN #10 tab 02/25/21 (Zofran) Allergies Allergy/AdvReac Type Severity Reaction Status Date / Time No Known Allergies Allergy Verified 12/02/20 11:33 [No Known Allergies*] Review of Systems Review of Systems Constitutional: No Fever, No Chills, No Fatigue, No Malaise Cardiovascular: No Chest Pain, No SOB, No Edema, No Palpitations Respiratory: No Cough, No Dyspnea Gastrointestinal: + Nausea, + Vomiting, + Diarrhea, No Constipation, + Abdominal pain, No Hematochezia, No Melena Genitourinary:+ Dysuria, No Urinary Frequency, No Hematuria, No Flank Pain Musculoskeletal: No joint pain, No Myalgias Skin: No Skin Lesions, No rash Neuro: No Weakness, No Headache Yes all other systems are reviewed and are negative Physical Exam Vital Signs: Vital Signs: Last Vital Signs Temp 98.1 F 02/25/21 01:41 Pulse 68 02/25/21 01:41 Resp 16 02/25/21 01:41 BP 111/65 02/25/21 01:41 Pulse Ox 100 02/25/21 01:41 Body Mass Index 46.3 Const: General: cooperative, healthy appearing and no acute distress Orientation/consciousness: patient oriented x3 Limitations: no limitations HENMT: Head: Yes normal to inspection and Yes atraumatic Ears: hearing grossly normal bilaterally General nose exam: Normal external nose present Face and sinus: Yes normal facial exam Eyes: General: appearance normal, both eyes and all related structures EOM: EOMs intact bilaterally Neck: Neck: Yes normal visual inspection and Yes no meningeal signs Resp: Effort & Inspection: normal respiratory effort and no respiratory distress Cardio: Rate: regular rate Heart sounds: S1 normal heart sound present and S2 normal heart sound present GI: Inspection: Yes normal to inspection Palpation (GI): Soft to palpation, Tenderness to palpation present (GI) (Diffusely tender), no guarding and not rigid : General: Yes no CVA tenderness Back/Spine/Pelvis: Back: no CVA tenderness Skin: Rashes: no rashes Wounds: no wounds Neuro: General: patient oriented x3 and no meningeal signs Gait exam (Neuro): Normal gait present Extrem: General: Yes normal to inspection and Yes no pedal edema Course Course Course Narrative: -no leukocytosis, H / H is stable, AST/ALT elevated -labs otherwise unremarkable, UA contaminated/not infected -COVID-[address] abdomen pelvis w con IMPRESSION: 1. No acute intra-abdominal or intrapelvic findings to explain the patient's pain. ? 2. Prominent fat within the inferior aspect of the left chest without discrete left diaphragmatic hernia. > will obtain CXR for further eval XR chest 1V IMPRESSION: Density at the left base showing some mild increased opacity compared to most recent plain film of 09/13/2020 and therefore superimposed infiltrate or atelectasis versus increasing soft tissue component to this fatty lesion would be a consideration. Lipomatous tumor would need to be considered ?>> results discussed with patient with motor vehicle parts interpreter including needed PCP/GI follow-up. Patient verbalized understanding feel safe for discharge home Patient was able to tolerate p.o. in the ED MDM - Abdominal Pain MDM Narrative Medical decision making narrative: 51-year-old female with a past medical history of asthma, , cholecystectomy, bilateral tubal ligation, presenting to the ED complaining of diffuse abdominal pain, nausea, vomiting, and diarrhea x 12 days. On exam vital signs stable, NAD/well-appearing, abdomen soft diffusely tender, no rebound or guarding. Concern for appendicitis/diverticulitis vs pancreatitis vs colitis or gastroenteritis/food poisoning. Plan: Labs, UA, CT AP, IVF, symptomatic treatment, reassess Medical Records Attestation: I reviewed the patient's medical records. Lab Data Attestation: I reviewed the patient's lab results. Result diagrams: 02/24/21 20:22 02/24/21 20:22 Labs: Lab Results 02/24/21 02/24/21 02/24/21 Range/Units 20:22 20:22 20:22 WBC 8.5 (4.8-10.8) X10*3/uL RBC 4.08 L (4.20-5.50) X10*6/uL Hgb 12.6 (12.0-16.0) g/dl Hct 38.2 (37-47) % MCV 93.6 (80-98) fL MCH 30.9 (27.0-33.0) pg MCHC 33.0 (31.0-35.0) g/dl RDW 13.0 (11.0-16.0) % Plt Count 242 (160-400) X10*3/uL MPV 10.5 (9.4-12.3) fL Immature Gran % (Auto) 0.4 (0.0-0.4) % Neut % (Auto) 68.8 (45-73) % Lymph % (Auto) 22.6 (20-40) % [place] % (Auto) 6.2 (2-11) % Eos % (Auto) 1.8 (0-4) % Baso % (Auto) 0.2 (0-2) % Lymph # (Auto) 1.9 (1.2-4.9) X10*3/uL [place] # (Auto) 0.5 (0.1-1.2) X10*3/uL Eos # (Auto) 0.2 (0.0-0.4) X10*3/uL Baso # (Auto) 0.0 (0.0-0.2) X10*3/uL Abs Immat Gran (auto) 0.03 (0.00-0.03) X10*3/uL Absolute Neuts (auto) 5.9 (2.0-8.3) X10*3/uL Absolute Nucleated RBC 0.000 (0.0-0.012) X10*3/uL Nucleated RBC % (auto) 0.0 (0.0-0.2) /100WBC Sodium 144 (135-145) mmol/L Potassium 3.8 (3.3-5.1) mmol/L Chloride 106 (96-108) mmol/L Carbon Dioxide 28 (22-29) mmol/L Anion Gap 14 (12-20) BUN 11 (9-16) mg/dL Creatinine 0.72 (0.5-1.4) mg/dL Estim Creat Clear Calc 110.9 Estimated GFR > 60 Random Glucose 105 (60-115) mg/dL Calcium 8.8 (8.4-10.2) mg/dL Total Bilirubin 0.2 (0.0-1.0) mg/dL Direct Bilirubin < 0.2 (0.0-0.5) mg/dL AST 86 H (5-31) U/L ALT 98 H (0-31) U/L Alkaline Phosphatase 95 (39-117) U/L Total Protein 6.4 L (6.5-8.0) g/dL Albumin 3.8 (3.5-5.0) g/dL Lipase 28 (8-78) U/L Urine Color Urine Appearance Urine pH (5.0-8.0) Ur Specific [place] (1.005-1.025) Urine Protein (NEG-TRACE) MG/DL Urine Glucose (UA) (NEG) MG/DL Urine Ketones (NEG) MG/DL Urine Blood (NEG) Urine Nitrite (NEG) Ur Leukocyte Esterase (NEG) Urine RBC (0) /HPF Urine WBC (0-4) /HPF Ur Squamous Epith Cells /LPF Urine Bacteria /LPF COVID-19 ([facility]) Negative (Negative) COVID-19 Clin Com See Note 02/24/21 Range/Units 20:39 WBC (4.8-10.8) X10*3/uL RBC (4.20-5.50) X10*6/uL Hgb (12.0-16.0) g/dl Hct (37-47) % MCV (80-98) fL MCH (27.0-33.0) pg MCHC (31.0-35.0) g/dl RDW (11.0-16.0) % Plt Count (160-400) X10*3/uL MPV (9.4-12.3) fL Immature Gran % (Auto) (0.0-0.4) % Neut % (Auto) (45-73) % Lymph % (Auto) (20-40) % [place] % (Auto) (2-11) % Eos % (Auto) (0-4) % Baso % (Auto) (0-2) % Lymph # (Auto) (1.2-4.9) X10*3/uL [place] # (Auto) (0.1-1.2) X10*3/uL Eos # (Auto) (0.0-0.4) X10*3/uL Baso # (Auto) (0.0-0.2) X10*3/uL Abs Immat Gran (auto) (0.00-0.03) X10*3/uL Absolute Neuts (auto) (2.0-8.3) X10*3/uL Absolute Nucleated RBC (0.0-0.012) X10*3/uL Nucleated RBC % (auto) (0.0-0.2) /100WBC Sodium (135-145) mmol/L Potassium (3.3-5.1) mmol/L Chloride (96-108) mmol/L Carbon Dioxide (22-29) mmol/L Anion Gap (12-20) BUN (9-16) mg/dL Creatinine (0.5-1.4) mg/dL Estim Creat Clear Calc Estimated GFR Random Glucose (60-115) mg/dL Calcium (8.4-10.2) mg/dL Total Bilirubin (0.0-1.0) mg/dL Direct Bilirubin (0.0-0.5) mg/dL AST (5-31) U/L ALT (0-31) U/L Alkaline Phosphatase (39-117) U/L Total Protein (6.5-8.0) g/dL Albumin (3.5-5.0) g/dL Lipase (8-78) U/L Urine Color YELLOW Urine Appearance CLOUDY Urine pH 6.0 (5.0-8.0) Ur Specific [place] >= 1.030 H (1.005-1.025) Urine Protein TRACE (NEG-TRACE) MG/DL Urine Glucose (UA) NEG (NEG) MG/DL Urine Ketones 5 (NEG) MG/DL Urine Blood NEG (NEG) Urine Nitrite NEG (NEG) Ur Leukocyte Esterase TRACE H (NEG) Urine RBC 0-2 (0) /HPF Urine WBC 1-4 (0-4) /HPF Ur Squamous Epith Cells 3+ /LPF Urine Bacteria TRACE /LPF COVID-19 ([facility]) (Negative) COVID-19 Clin Com Discharge Plan Discharge Clinical Impression: Abdominal pain Patient Disposition: Home, Self-Care Instructions: Abdominal Pain (ED) Additional Instructions: Your liver enzymes were elevated today in the ED, this needs to be observed and monitored by your primary care doctor There is also a fatty tumor like density seen in your left lower lung santamaria, please follow-up with her primary care doctor pertaining to this, your given a copy of the CT scan results Maalox, Pepcid, and Bentyl will help with her abdominal discomfort Zofran as an antinausea medication Make sure staying hydrated at home Follow-up with a GI specialist as needed If her symptoms persist or worsen, your unable eat or drink, develops fever, persistent nausea/vomiting or diarrhea please return to the ED Marycarmen enzimas hep?nadine se elevaron hoy en el servicio de urgencias, esto debe ser observado y monitoreado por angeles m?dico de atenci?n primaria. Tambi?n se observa angelic densidad similar a un tumor graso en los sherman de la parte inferior del pulm?n geeta, consulte con angeles m?dico de atenci?n primaria en relaci?n con esto, se le entreg? angelic copia de los resultados de la tomograf?a computarizada. Maalox, Pepcid y Bentyl ayudar?n con angeles malestar abdominal Zofran carli medicamento contra las n?useas Aseg?rate de mantenerte hidratado en casa Seguimiento con un especialista gastrointestinal seg?n sea necesario Si marycarmen s?ntomas persisten o empeoran, no puede comer ni beber, tiene fiebre, n?useas / v?mitos persistentes o diarrea, vuelva al servicio de urgencias. Prescriptions: New ondansetron HCl [Zofran] 4 mg tablet 4 mg PO Q8H PRN (Reason: nausea and vomiting) Qty: 10 RF: 0 famotidine [Pepcid] 20 mg tablet 20 mg PO DAILY Qty: 14 RF: 0 dicyclomine 20 mg tablet 20 mg PO TID PRN (Reason: abdominal discomfort) Qty: 14 RF: 0 alum-mag hydroxide-simeth [Maalox Advanced] 200-200-20 mg/5 mL suspension 5 ml PO 5XD PRN (Reason: dyspepsia) Qty: 30 RF: 0 No Action ergocalciferol (vitamin D2) 1,250 mcg (50,000 unit) capsule 1 cap PO QWEEK RF: 0 triamcinolone acetonide 0.5 % cream 1 appl topical DAILY RF: 0 cholecalciferol (vitamin D3) 25 mcg (1,000 unit) capsule 25 mcg PO DAILY RF: 0 albuterol sulfate 90 mcg/actuation HFA aerosol inhaler 2 puff inhalation Q6H PRN (Reason: Wheezing) RF: 0 Flovent HFA 110 mcg/actuation HFA aerosol inhaler 1 puff inhalation Q12H RF: 0 bisacodyl [Dulcolax (bisacodyl)] 5 mg tablet,delayed release (DR/EC) 10 mg PO BEDTIME 2 Days Qty: 4 RF: 0 polyethylene glycol 3350 [Miralax] 17 gram/dose powder 238 g PO ONCE 1 Days Qty: 238 RF: 0 Referrals: Judy Galvan MD [Primary Care Provider] - 2 days Emeka Lima [Physician] - 5 days Print Language: Azeri [facility] Past Medical History Attestation statement: The following information was validated with the patient. 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
[2021-02-24 23:38] VITALS: BP 110/71; PULSE 66; RESP 16; O2SAT 100
[2021-02-25 01:41] VITALS: BP 111/65; PULSE 68; RESP 16; TEMP 36.7; O2SAT 100
== END 2021-02-25 02:17 | disposition home or self-care (01) ==
PROVIDERS: Emergency Provider Student in an Organized Health Care Education/Training Program; PCP Internal Medicine
DX: R10.9 Unspecified abdominal pain (principal); R30.0 Dysuria; Z20.822 Contact with and (suspected) exposure to COVID-19; R74.8 Abnormal levels of other serum enzymes; D17.79 Benign lipomatous neoplasm of other sites
CPT/HCPCS: 36415; 71045; 74177; 80053; 81001; 82248; 83690; 85025; 87086; 87635; 96361; 96374; 96375; 99284; J1885; J2405; Q9967

== ENCOUNTER 2021-04-04 09:43 | Outpatient (REF) | payer MEDICAID, SELFPAY ==
--- NOTE | ~2021-04-04 | MM_ITS ---
EXAMINATION: MM SCREENING DIGITAL BREAST TOMOSYNTHESIS, BILATERAL CLINICAL INFORMATION: Screening. Asymptomatic. The lifetime risk of breast cancer based on the Tyrer-Cuzick Model is 9.3%. COMPARISON: Mammography: April 01, 2020 and studies dating back to August 24, 2017 TECHNIQUE: Digital breast tomosynthesis is performed in both the craniocaudal and mediolateral oblique views along with computer-aided detection (CAD). Synthesized 2D images are generated from the tomosynthesis. FINDINGS: The breasts are almost entirely fatty (ACR BI-RADS breast composition Category a). There are no significant masses, abnormal calcifications, or other abnormalities. MM/MM tomosynthesis screening BI IMPRESSION: There are no significant changes from prior study. ASSESSMENT: BI-RADS 1: Negative RECOMMENDATION: Routine annual mammography screening. This patient's information was entered into a reminder system with a target due date for their next mammogram.
== END 2021-04-04 09:44 | disposition home or self-care (01) ==
LOC: HO.MAMMO 09:43
PROVIDERS: PCP Internal Medicine; Visit Provider Obstetrics & Gynecology
DX: Z12.31 Encounter for screening mammogram for malignant neoplasm of breast (principal)
CPT/HCPCS: 77063; 77067

== ENCOUNTER 2021-04-05 12:28 | Outpatient (REF) | payer MEDICAID, SELFPAY ==
--- NOTE | 2021-04-05 | PFT_ITS ---
Forced vital capacity, FEV1, TOU24-72, and MVV are all markedly decreased. There is an excellent response to bronchodilator therapy with almost complete reversibility to normal. Total lung capacity normal. Residual volume is moderately increased. Diffusion capacity normal. CONCLUSION: Severe obstructive disorder with complete reversibility after bronchodilator therapy. These findings are consistent with bronchial asthma. Clinical correlation is recommended. MD JT Trevizo/CORTNEY / [id number]
== END 2021-04-05 12:29 | disposition home or self-care (01) ==
LOC: HO.RESP 12:28
PROVIDERS: PCP Internal Medicine; Visit Provider Internal Medicine
DX: D17.4 Benign lipomatous neoplasm of intrathoracic organs (principal); E66.01 Morbid (severe) obesity due to excess calories
CPT/HCPCS: 94060; 94727; 94729

== ENCOUNTER 2021-04-14 13:07 | Emergency (ER) | payer MEDICAID, SELFPAY ==
--- NOTE | 2021-04-14 | ECG_ITS ---
Test Reason : CHEST PAIN Blood Pressure : / mmHG Vent. Rate : 060 BPM Atrial Rate : 060 BPM P-R Int : 178 ms QRS Dur : 068 ms QT Int : 400 ms P-R-T Axes : 042 028 028 degrees QTc Int : 400 ms Normal sinus rhythm Normal ECG When compared with ECG of 13-SEP-2020 15:53, No significant change was found Referred By: Generic ED Physician Electronically Signed By:DONITA ROJAS
--- NOTE | ~2021-04-14 | XR_ITS ---
EXAMINATION: XR CHEST CLINICAL INFORMATION: SOB. COMPARISON: Chest 02/24/2021 TECHNIQUE: Frontal view of the chest was obtained. FINDINGS: The lungs are well-expanded and clear of acute process. The heart size is enlarged. Pulmonary vascularity is normal. There is mild spondylosis dorsal spine. Mild dextro scoliosis dorsal spine. XR/XR chest 1V IMPRESSION: Mild dextroscoliosis dorsal spine. Mild cardiomegaly. No acute pulmonary changes.
--- NOTE | 2021-04-14 13:12 | PC.NURSE ---
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
[2021-04-14 13:40] VITALS: BP 119/70; PULSE 65; RESP 18; TEMP 36.8; O2SAT 96; BMI 44.8
[2021-04-14 15:12] LABS: Strep A Nucleic Acid Negative (Negative)
[2021-04-14 15:23] LABS: COVID-19 Test Negative (Negative); IDNOW Serial# 9DD0AD1C
--- NOTE | 2021-04-14 15:25 | ED.GENADULT ---
HPI - General Adult General Chief complaint: General Medical Stated complaint: cough, sore throat, SOB Time Seen by Provider: 04/14/21 15:25 Source: patient Mode of arrival: ambulatory Limitations: no limitations History of Present Illness HPI narrative: 51-year-old female past medical history of asthma, GERD presents to the emergency department with SOB X2 days and sore throat and epigatric pain that radiates straight up to her throat X1 day. She also vaguely mentions chest tightness X1 day. She adds she is being worked up for some kind of mass that was found in her chest, she can not elaborate on this and states that once they told her this. She states that today her throat has been burning and she feels an acid taste in her mouth. She denies fevers, chills, abdominal pain, changes in bowel habits, changes in urination, recent sick contacts. She is vaccinated against COVID-19. She is not a smoker. Onset (ago): day(s) (2) Severity: mild Quality: burning Pain Consistency: constant Relieving factors: none Exacerbating factors: none Associated symptoms: other (chest tightness) Treatments prior to arrival: none Related Data Home Medications Medication Instructions Recorded Confirmed albuterol sulfate 90 mcg/actuation 2 puff INHALATION Q6H PRN 07/29/20 12/02/20 aerosol inhaler cholecalciferol (vitamin D3) 25 25 mcg PO DAILY 07/29/20 12/02/20 mcg (1,000 unit) capsule fluticasone propionate 110 1 puff INHALATION Q12H 07/29/20 12/08/20 mcg/actuation HFA aerosol inhaler (Flovent HFA) triamcinolone acetonide 0.5 % 1 appl TOPICAL DAILY 07/29/20 12/02/20 topical cream ergocalciferol (vitamin D2) 1,250 1 cap PO QWEEK 12/02/20 12/02/20 mcg (50,000 unit) capsule Previous Rx's Medication Instructions Recorded bisacodyl 5 mg tablet,delayed 10 mg PO BEDTIME 2 Days #4 tab 10/22/20 release (Dulcolax (bisacodyl)) polyethylene glycol 3350 17 238 g PO ONCE 1 Days #238 g 10/22/20 gram/dose oral powder (Miralax) aluminum-mag hydroxide-simethicone 5 ml PO 5XD PRN #30 ml 02/25/21 200 mg-200 mg-20 mg/5 mL oral susp (Maalox Advanced) dicyclomine 20 mg tablet 20 mg PO TID PRN #14 tab 02/25/21 famotidine 20 mg tablet (Pepcid) 20 mg PO DAILY #14 tab 02/25/21 ondansetron HCl 4 mg tablet 4 mg PO Q8H PRN #10 tab 02/25/21 (Zofran) Allergies Allergy/AdvReac Type Severity Reaction Status Date / Time No Known Allergies Allergy Verified 04/14/21 13:39 [No Known Allergies*] Review of Systems Review of Systems: Yes all other systems are reviewed and are negative [facility] Past Medical History Attestation statement: The following information was validated with the patient. 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 Sexual orientation: Straight/Heterosexual Gender identity: Female Physical Exam Vital Signs: Vital Signs: Last Vital Signs Temp 98.2 F 04/14/21 13:40 Pulse 65 04/14/21 13:40 Resp 18 04/14/21 13:40 BP 119/70 04/14/21 13:40 Pulse Ox 96 04/14/21 13:40 Body Mass Index 44.8 Const: General: cooperative and no acute distress Orientation/consciousness: oriented to person and oriented to place Limitations: no limitations HENMT: Head: Yes normal to inspection, Yes normocephalic and Yes atraumatic Ears: external ears normal General nose exam: Normal external nose present Face and sinus: Yes normal facial exam Mouth: Normal oral and palatal mucosa present Throat: Yes posterior oropharynx normal Eyes: General: appearance normal, both eyes and all related structures Pupils: Equal, round and reactive pupils present Neck: Neck: Yes normal visual inspection, Yes no lymphadenopathy, Yes trachea midline and Yes supple Chest: Chest palpation & inspection: normal inspection of the chest and normal palpation of entire chest wall Resp: Effort & Inspection: normal respiratory effort and able to speak in complete sentences Auscultation: wheezes scattered wheezes Cardio: Rate: regular rate Rhythm: regular rhythm Heart sounds: S1 normal heart sound present, S2 normal heart sound present and no murmurs GI: Inspection: Yes normal to inspection Palpation (GI): Soft to palpation, nontender and no guarding Auscultation: normal bowel sounds : General: Yes no CVA tenderness Back/Spine/Pelvis: Back: no CVA tenderness Skin: General skin exam: no rashes or lesions noted Neuro: General: oriented to person and oriented to place Cranial nerves: Yes CN's II-XII intact bilaterally and Yes Equal, round and reactive pupils present Cognition (Neuro): normal cognition Motor exam (neuro): 5/5 motor strength present throughout Extrem: General: Yes normal to inspection Psych: Appearance: grossly normal Speech and movement: Normal speech and movement present Affect: normal affect Attitude: cooperative Thought process: Normal thought process present Thought content: Normal thought content present Course Course Course Narrative: -COVID and strep negative. Labs still pending. This patient will get signed out to Medical Decision Making [facility] Narrative Medical decision making narrative: 51-year-old female asthma, GERD presents to the emergency department with SOB X2 days and sore throat and epigatric pain that radiates straight up to her throat X1 day. She also mentions vague chest tightness X1 day. She states her SOB is mainly pain with inspiration. Upon exam scattered wheezing noted, speaking in full sentences in no acute distress 96% on RA. negative liya sign. No LE edema. Throat shows no erythema. Patients history and PE findigns corralate with GERD, however cardiac etiologies such as CO will be ruled out and PE will be ruled out. Can not rule out PE based of PERC rules so D-dimer will be done. Plan- EKG, CBC, BMP, Trop X1, CXR, Strep, COVID. She will be given Maalox, viscous lidocaine, , and she will be given an albuterol neb. Lab Data Result diagrams: 04/14/21 16:13 04/14/21 16:13 Labs: Lab Results 04/14/21 04/14/21 Range/Units 14:54 14:54 COVID-19 ([facility]) Negative (Negative) COVID-19 Clin Com See Note S. pyogenes GrpA MOODY Negative (Negative) Discharge Plan Discharge Clinical Impression: Chest pain due to GERD, Shortness of breath, Asthma GERD (gastroesophageal reflux disease) Qualifiers: Esophagitis presence: esophagitis presence not specified Qualified Code(s): K21.9 - Gastro-esophageal reflux disease without esophagitis Patient Disposition: Home, Self-Care Instructions: Asthma (ED), Gastroesophageal Reflux Disease (ED) Additional Instructions: You tested negative for strep and COVID-19 today Follow up with your PCP Drink plenty of fluids Take prescriptions as indicated Return to the emergency department with new or worsening symptoms Prescriptions: No Action ergocalciferol (vitamin D2) 1,250 mcg (50,000 unit) capsule 1 cap PO QWEEK RF: 0 ondansetron HCl [Zofran] 4 mg tablet 4 mg PO Q8H PRN (Reason: nausea and vomiting) Qty: 10 RF: 0 famotidine [Pepcid] 20 mg tablet 20 mg PO DAILY Qty: 14 RF: 0 dicyclomine 20 mg tablet 20 mg PO TID PRN (Reason: abdominal discomfort) Qty: 14 RF: 0 alum-mag hydroxide-simeth [Maalox Advanced] 200-200-20 mg/5 mL suspension 5 ml PO 5XD PRN (Reason: dyspepsia) Qty: 30 RF: 0 triamcinolone acetonide 0.5 % cream 1 appl topical DAILY RF: 0 cholecalciferol (vitamin D3) 25 mcg (1,000 unit) capsule 25 mcg PO DAILY RF: 0 albuterol sulfate 90 mcg/actuation HFA aerosol inhaler 2 puff inhalation Q6H PRN (Reason: Wheezing) RF: 0 Flovent HFA 110 mcg/actuation HFA aerosol inhaler 1 puff inhalation Q12H RF: 0 bisacodyl [Dulcolax (bisacodyl)] 5 mg tablet,delayed release (DR/EC) 10 mg PO BEDTIME 2 Days Qty: 4 RF: 0 polyethylene glycol 3350 [Miralax] 17 gram/dose powder 238 g PO ONCE 1 Days Qty: 238 RF: 0
[2021-04-14 16:21] LABS: MANUAL DIFF FLAG NO
[2021-04-14] MEDS: Magnesium Hydrox/Alum Hydrox 30 ML ORAL.SUSP PO (16:23)
[2021-04-14] MEDS: Lidocaine HCl Viscous 2 % 15 ML SOLUTION 10 ML MUCOUS MEM (16:23)
[2021-04-14] MEDS: PHENobarb/Hyoscy/Atropine/Scop 10 ML ELIXIR PO (16:23)
[2021-04-14 16:24] LABS: Basophils Percent Auto 0.4 % (0-2); Eosinophils Absolute Auto 0.2 X10*3/uL (0.0-0.4); Hematocrit 41.1 % (37-47); Hemoglobin 13.7 g/dl (12.0-16.0); Imm Gran Abs Auto 0.03 X10*3/uL (0.00-0.03); Imm Gran Pct Auto 0.4 % (0.0-0.4); Lymphocytes Absolute Auto 1.8 X10*3/uL (1.2-4.9); Lymphocytes Percent Auto 23.5 % (20-40); Mean Corpuscular HGB Conc 33.3 g/dl (31.0-35.0); Mean Corpuscular Hemoglobin 31.1 pg (27.0-33.0); Mean Corpuscular Volume 93.4 fL (80-98); Mean Platelet Volume 10.3 fL (9.4-12.3); Monocytes Absolute Auto 0.5 X10*3/uL (0.1-1.2); Monocytes Percent Auto 6.7 % (2-11); Platelet Count 223 X10*3/uL (160-400); Red Cell Distribution Width 12.5 % (11.0-16.0); White Blood Count 7.6 X10*3/uL (4.8-10.8)
[2021-04-14 16:39] LABS: D Dimer 278 NG/ML
[2021-04-14 16:42] LABS: Alanine Aminotransferase 27 U/L (0-31); Albumin Level 4.3 g/dL (3.5-5.0); Alkaline Phosphatase 96 U/L (39-117); Anion Gap 14 (12-20); Aspartate Amino Transferase 20 U/L (5-31); Bilirubin Total 0.4 mg/dL (0.0-1.0); Blood Urea Nitrogen 9 mg/dL (9-16); Calcium 9.8 mg/dL (8.4-10.2); Carbon Dioxide 25 mmol/L (22-29); Chloride 108 mmol/L (96-108); Creatinine Clr Calc Pharmacy 100.3; Estimated Glomerular Filt Rate > 60; Glucose Random 92 mg/dL (60-115); Potassium 4.5 mmol/L (3.3-5.1); Sodium 142 mmol/L (135-145); Total Protein 7.3 g/dL (6.5-8.0)
[2021-04-14 16:47] LABS: Troponin-I High Sensitivity < 3.5 ng/L (<3.5-17.0)
[2021-04-14] MEDS: Albuterol Sulfate (0.083%) 2.5 MG/3 ML VIAL.NEB 5 MG INHALE (16:47)
[2021-04-14 16:48] VITALS: O2SAT 96
[2021-04-14 18:00] VITALS: BP 119/58; PULSE 64; RESP 18; TEMP 36.7; O2SAT 97
--- NOTE | 2021-04-14 18:06 | PC.NURSE ---
Pt reports feeling the same as at arrival. skin pwd. unlabored resp. slight cough noted during updraft.
[2021-04-14] MEDS: predniSONE 20 MG TABLET 40 MG PO (19:04)
== END 2021-04-14 19:18 | disposition home or self-care (01) ==
PROVIDERS: Emergency Provider Emergency Medicine Emergency Medical Services; PCP Internal Medicine
DX: R07.9 Chest pain, unspecified (principal); K21.9 Gastro-esophageal reflux disease without esophagitis; R06.02 Shortness of breath; J45.909 Unspecified asthma, uncomplicated; Z79.899 Other long term (current) drug therapy; Z20.822 Contact with and (suspected) exposure to COVID-19
CPT/HCPCS: 36415; 71045; 80053; 84484; 85025; 85379; 87635; 87651; 93005; 94640; 99284

== ENCOUNTER 2021-04-27 21:33 | Emergency (ER) | payer MEDICAID, SELFPAY ==
--- NOTE | ~2021-04-27 | XR_ITS ---
EXAMINATION: XR CHEST CLINICAL INFORMATION: Shortness of breath COMPARISON: 04/14/2021 TECHNIQUE: Frontal view of the chest was obtained. FINDINGS: Normal symmetric lung volumes. Left basilar subsegmental atelectasis. No parenchymal consolidation. No pleural effusion. No pneumothorax. Cardiomediastinal silhouette and pulmonary vascularity are within normal limits. No acute osseous abnormalities. XR/XR chest 1V IMPRESSION: No acute findings.
[2021-04-27 22:11] VITALS: BP 115/76; PULSE 94; RESP 16; TEMP 36.6; O2SAT 97; BMI 44.8
[2021-04-27 22:12] LABS: COVID-19 Test Negative (Negative)
--- NOTE | 2021-04-27 23:47 | ECG_ITS ---
Test Reason : DYSPNEA Blood Pressure : / mmHG Vent. Rate : 076 BPM Atrial Rate : 076 BPM P-R Int : 164 ms QRS Dur : 068 ms QT Int : 380 ms P-R-T Axes : 064 031 036 degrees QTc Int : 427 ms Normal sinus rhythm with sinus arrhythmia Normal ECG No previous ECGs available Referred By: Deloris Bertrand Electronically Signed By:PAZ DUNN MD
--- NOTE | 2021-04-27 23:47 | ED.SOB ---
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 She states that she feels tingling around her chest and up into her head which started this evening. Related Data Home Medications Medication Instructions Recorded Confirmed albuterol sulfate 90 mcg/actuation 2 puff INHALATION Q6H PRN 07/29/20 12/02/20 aerosol inhaler cholecalciferol (vitamin D3) 25 25 mcg PO DAILY 07/29/20 12/02/20 mcg (1,000 unit) capsule fluticasone propionate 110 1 puff INHALATION Q12H 07/29/20 12/08/20 mcg/actuation HFA aerosol inhaler (Flovent HFA) triamcinolone acetonide 0.5 % 1 appl TOPICAL DAILY 07/29/20 12/02/20 topical cream ergocalciferol (vitamin D2) 1,250 1 cap PO QWEEK 12/02/20 12/02/20 mcg (50,000 unit) capsule Previous Rx's Medication Instructions Recorded bisacodyl 5 mg tablet,delayed 10 mg PO BEDTIME 2 Days #4 tab 10/22/20 release (Dulcolax (bisacodyl)) polyethylene glycol 3350 17 238 g PO ONCE 1 Days #238 g 10/22/20 gram/dose oral powder (Miralax) aluminum-mag hydroxide-simethicone 5 ml PO 5XD PRN #30 ml 02/25/21 200 mg-200 mg-20 mg/5 mL oral susp (Maalox Advanced) dicyclomine 20 mg tablet 20 mg PO TID PRN #14 tab 02/25/21 famotidine 20 mg tablet (Pepcid) 20 mg PO DAILY #14 tab 02/25/21 ondansetron HCl 4 mg tablet 4 mg PO Q8H PRN #10 tab 02/25/21 (Zofran) albuterol sulfate 2.5 mg INHALATION Q4-6H PRN #90 ml 04/14/21 albuterol sulfate 90 mcg/actuation 2 puff INHALATION Q4-6H PRN #8.5 g 04/14/21 aerosol inhaler (ProAir HFA) prednisone 20 mg tablet 40 mg PO DAILY #10 tab 04/14/21 prednisone 20 mg tablet 40 mg PO DAILY 4 Days #8 tab 04/28/21 Allergies Allergy/AdvReac Type Severity Reaction Status Date / Time No Known Allergies Allergy Verified 04/14/21 13:39 [No Known Allergies*] Review of Systems Review of Systems: Pertinent positives and negatives as stated in HPI 10 point review of systems is otherwise negative. 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 GENERAL: Well developed, well nourished, in no acute distress. HEAD: Normocephalic/atraumatic EYES: PERRLA, EOMI OROPHARYNX: no oral lesions noted, posterior pharynx clear NECK: Supple, no adenopathy LUNGS: Normal breath sounds, some mild expiratory wheeze without tachypnea or noted retractions. SpO2<97> CARDIOVASCULAR: Regular rate and rhythm without noted murmurs ABDOMEN: Soft, non-tender, non-distended with bowel sounds. NEUROLOGIC: Alert and oriented x 4. Course Course Course Narrative: 51-year-old female with history and clinical presentation consistent with mild asthma. On review of all investigations and on reinforce assessment patient is feeling much improved and there is no evidence on EKG or chest x-ray of any acute changes or findings. Patient was otherwise discharged home in stable condition with a course steroids and instructions to increase her dosing of her rescue inhaler over the next 24 hours. MDM - SOB/Dyspnea Lab Data Labs: Lab Results 04/27/21 Range/Units 21:49 COVID-19 ([facility]) Negative (Negative) COVID-19 Clin Com See Note ECG Data Attestation: I personally reviewed and interpreted this ECG as follows: Prior ECG tracings: available for review (04/14/2021 no acute changes on comparison) Interpretation: Normal sinus rhythm, HR-76, no STEMI, CA/QRS/QTC are within normal limits. Discharge Plan Discharge Clinical Impression: Asthma with exacerbation Patient Disposition: Home, Self-Care Instructions: Asthma (ED) Additional Instructions: 1. Reanude todos los medicamentos caseros seg?n lo prescrito. 2. Teresa las pr?ximas 24 horas, utilice angeles inhalador de rescate, bomba de albuterol, cada 4 horas para mejorar el control de marycarmen s?ntomas. 3. Karan un seguimiento con angeles proveedor de atenci?n primaria por la ma?judy para angelic reevaluaci?n adicional para el manejo ambulatorio. Regrese a la robyn de emergencias por un empeoramiento everardo de los s?ntomas. Prescriptions: New prednisone 20 mg tablet 40 mg PO DAILY 4 Days Qty: 8 RF: 0 No Action ergocalciferol (vitamin D2) 1,250 mcg (50,000 unit) capsule 1 cap PO QWEEK RF: 0 ondansetron HCl [Zofran] 4 mg tablet 4 mg PO Q8H PRN (Reason: nausea and vomiting) Qty: 10 RF: 0 famotidine [Pepcid] 20 mg tablet 20 mg PO DAILY Qty: 14 RF: 0 dicyclomine 20 mg tablet 20 mg PO TID PRN (Reason: abdominal discomfort) Qty: 14 RF: 0 alum-mag hydroxide-simeth [Maalox Advanced] 200-200-20 mg/5 mL suspension 5 ml PO 5XD PRN (Reason: dyspepsia) Qty: 30 RF: 0 prednisone 20 mg tablet 40 mg PO DAILY Qty: 10 RF: 0 albuterol sulfate [ProAir HFA] 90 mcg/actuation HFA aerosol inhaler 2 puff inhalation Q4-6H PRN (Reason: Wheezing) Qty: 8.5 RF: 0 albuterol sulfate 2.5 mg /3 mL (0.083 %) solution for nebulization 2.5 mg inhalation Q4-6H PRN (Reason: shortness of breath or wheezing) Qty: 90 RF: 0 triamcinolone acetonide 0.5 % cream 1 appl topical DAILY RF: 0 cholecalciferol (vitamin D3) 25 mcg (1,000 unit) capsule 25 mcg PO DAILY RF: 0 albuterol sulfate 90 mcg/actuation HFA aerosol inhaler 2 puff inhalation Q6H PRN (Reason: Wheezing) RF: 0 Flovent HFA 110 mcg/actuation HFA aerosol inhaler 1 puff inhalation Q12H RF: 0 bisacodyl [Dulcolax (bisacodyl)] 5 mg tablet,delayed release (DR/EC) 10 mg PO BEDTIME 2 Days Qty: 4 RF: 0 polyethylene glycol 3350 [Miralax] 17 gram/dose powder 238 g PO ONCE 1 Days Qty: 238 RF: 0 Referrals: Judy Galvan MD [Primary Care Provider] - 2 days Print Language: Fijian
[2021-04-28] MEDS: Albuterol Sulfate (0.083%) 2.5 MG/3 ML VIAL.NEB 5 MG INHALE (00:32)
[2021-04-28 00:34] VITALS: PULSE 74; O2SAT 97
[2021-04-28 01:17] VITALS: PULSE 82; O2SAT 96
[2021-04-28] MEDS: predniSONE 20 MG TABLET 40 MG PO (02:10)
== END 2021-04-28 02:16 | disposition home or self-care (01) ==
PROVIDERS: Emergency Provider Student in an Organized Health Care Education/Training Program; PCP Internal Medicine
DX: J45.901 Unspecified asthma with (acute) exacerbation (principal); Z20.822 Contact with and (suspected) exposure to COVID-19
CPT/HCPCS: 36415; 71045; 87635; 93005; 94640; 99283; 99284

== ENCOUNTER 2021-07-26 08:54 | Emergency (ER) | payer MEDICAID, SELFPAY ==
--- NOTE | ~2021-07-26 | XR_ITS ---
EXAMINATION: XR CHEST CLINICAL INFORMATION: Headache and nausea. COMPARISON: Chest 04/28/2021 CT chest 02/24/2021 TECHNIQUE: 2 views of the chest were obtained. FINDINGS: The heart size is enlarged. Without acute pneumonic process. There is a moderate amount of left supradiaphragmatic fat simulating left lower lobe consolidation. Rest of the lungs are well-expanded and clear. No gross bony abnormality seen. XR/XR chest 2V IMPRESSION: No acute pneumonic process seen. No change from 04/28/2021 chest x-ray.
--- NOTE | ~2021-07-26 | CT_ITS ---
EXAMINATION: CT HEAD WITHOUT CONTRAST CLINICAL INFORMATION: Dizziness, headache and right arm paresthesias of nausea COMPARISON: None TECHNIQUE: Contiguous axial imaging was performed from the skull base to vertex without intravenous administration of contrast. This CT examination was performed using dose optimization techniques as appropriate, variously including the following: *Automated exposure control *Adjustment of mA and/or kV according to patient size (this includes techniques or standardized protocols for targeted exams where dose is matched to indication/reason for exam; i.e. extremities or head) *Use of iterative reconstruction technique DLP: 724 mGy-cm FINDINGS: There is no evidence of acute intracranial hemorrhage or territorial infarction. No abnormal mass effect or midline shift is seen. Lyle to white matter differentiation is well preserved. No extra-axial fluid collections are identified. The ventricles are normal in size. There is no abnormal attenuation within the brain parenchyma. The osseous structures and soft tissues are normal. There is mild mucoperiosteal thickening bilateral ethmoid sinuses. Rest the paranasal sinuses and mastoid air cells are well-aerated. CT/CT head/brain wo con IMPRESSION: No acute intracranial process seen. Mild bilateral chronic ethmoid sinus inflammatory changes
[2021-07-26 09:04] VITALS: BP 151/87; PULSE 80; RESP 16; TEMP 36.9; O2SAT 98; BMI 45.7
[2021-07-26 10:26] VITALS: BP 117/69; PULSE 85; RESP 14; TEMP 37.6; O2SAT 95
--- NOTE | 2021-07-26 10:30 | ECG_ITS ---
Test Reason : headache/dizziness Blood Pressure : / mmHG Vent. Rate : 073 BPM Atrial Rate : 073 BPM P-R Int : 160 ms QRS Dur : 070 ms QT Int : 374 ms P-R-T Axes : 040 028 023 degrees QTc Int : 412 ms Normal sinus rhythm Normal ECG When compared with ECG of 28-APR-2021 00:13, No significant change was found Referred By: Libby Payne Electronically Signed By:KAIT MCMILLAN
[2021-07-26 11:02] LABS: MANUAL DIFF FLAG NO
[2021-07-26 11:04] LABS: Basophils Percent Auto 0.3 % (0-2); Eosinophils Absolute Auto 0.2 X10*3/uL (0.0-0.4); Eosinophils Percent Auto 2.4 % (0-4); Hematocrit 41.4 % (37.0-47.0); Hemoglobin 13.9 g/dl (12.0-16.0); Imm Gran Abs Auto 0.03 X10*3/uL (0.00-0.03); Imm Gran Pct Auto 0.4 % (0.0-0.4); Lymphocytes Absolute Auto 1.1 X10*3/uL (1.2-4.9); Lymphocytes Percent Auto 15.1 % (20-40); Mean Corpuscular HGB Conc 33.6 g/dl (31.0-35.0); Mean Corpuscular Hemoglobin 30.9 pg (27.0-33.0); Mean Platelet Volume 10.4 fL (9.4-12.3); Monocytes Absolute Auto 0.8 X10*3/uL (0.1-1.2); Monocytes Percent Auto 11.8 % (2-11); Neutrophils Absolute Auto 4.9 x10*3/uL (2.0-8.3); Platelet Count 223 X10*3/uL (160-400)
[2021-07-26 11:17] LABS: INTERNATIONAL NORM RATIO 1.2 (0.9-1.1); Prothrombin Time 13.6 SEC (9.9-13.0)
[2021-07-26 11:23] LABS: Alanine Aminotransferase 18 U/L (0-31); Alkaline Phosphatase 78 U/L (39-117); Anion Gap 13 (12-20); Aspartate Amino Transferase 13 U/L (5-31); Bilirubin Total 0.3 mg/dL (0.0-1.0); Blood Urea Nitrogen 11 mg/dL (9-16); C Reactive Protein 3.02 mg/dL (< or = 0.50); Calcium 9.4 mg/dL (8.4-10.2); Carbon Dioxide 24 mmol/L (22-29); Chloride 104 mmol/L (96-108); Estimated Glomerular Filt Rate > 60; Glucose Random 103 mg/dL (60-115); Magnesium 1.9 mg/dL (1.6-2.6); Potassium 3.9 mmol/L (3.3-5.1); Sodium 137 mmol/L (135-145); Total Protein 7.1 g/dL (6.5-8.0)
[2021-07-26 11:27] LABS: Troponin-I High Sensitivity < 3.5 ng/L (<3.5-17.0)
[2021-07-26 11:36] LABS: Estimated Average Glucose 114 mg/dL; Hemoglobin A1c % 5.6 %
--- NOTE | 2021-07-26 11:42 | ED.HA ---
HPI - Headache General Chief Complaint: Headache Stated Complaint: headache R arm numbness nausea dizziness Time Seen by Provider: 07/26/21 09:25 Source: patient Mode of arrival: ambulatory Limitations: language barrier (Cymraes-speaking) History of Present Illness HPI Narrative: 51-year-old female with a past medical history of asthma, , cholecystitis, bilateral tubal ligation presenting to the ED with complaints of 2 days of a frontal/temporal/retro-orbital headache that she reports as a pressure and sensation that has been constant since she woke up yesterday morning. She reports associated nausea and right arm paresthesia. She reports that she usually does not get headaches. She reports that she went to her ramp service man yesterday and they noticed that she had a right eye retinal hemorrhage and sent her to have outpatient labs which she brought with her which include a CBC with differential, sed rate, CRP and hemoglobin A1c. They wanted to rule out diabetes and arteritis. They also wanted her to follow up with her primary care provider. Although patient decided to come here for further evaluation treatment due to the headache was still present today. She denies any fevers, chills, changes in vision, blurry vision, vomiting, jaw pain, chest pain, shortness of breath, dyspnea on exertion, orthopnea, palpitations, abdominal pain, back pain, radiation of the headache, lower extremity edema or calf tenderness, dysuria, hematuria, abnormal vaginal discharge, rashes, trauma, being on any anticoagulation, close contacts with similar symptoms, known CO2 exposure, any tick bites that she is aware of, recent spinal/epidural procedure, any new medications, recent URI or any other symptoms complaints or concerns at this time. Patient reports she took 2 Tylenol yesterday and no symptomatic relief. She reports that she did not take anything for her headache today. MD elicited complaint: headache Pertinent past history: other (Right eye retinal hemorrhage) Onset (ago): day(s) (Since yesterday morning) Onset description: on awakening Location: frontal, temporal and retro-orbital Severity: moderate Quality & Timing: constant and pressure Exacerbating factors: none Relieving factors: nothing Context: occurred at rest Associated symptoms: nausea Treatments prior to arrival: other (Took 2 Tylenols yesterday no symptomatic relief) Related Data Home Medications Medication Instructions Recorded Confirmed albuterol sulfate 90 mcg/actuation 2 puff INHALATION Q6H PRN 07/29/20 12/02/20 aerosol inhaler cholecalciferol (vitamin D3) 25 25 mcg PO DAILY 07/29/20 12/02/20 mcg (1,000 unit) capsule fluticasone propionate 110 1 puff INHALATION Q12H 07/29/20 12/08/20 mcg/actuation HFA aerosol inhaler (Flovent HFA) triamcinolone acetonide 0.5 % 1 appl TOPICAL DAILY 07/29/20 12/02/20 topical cream ergocalciferol (vitamin D2) 1,250 1 cap PO QWEEK 12/02/20 12/02/20 mcg (50,000 unit) capsule Previous Rx's Medication Instructions Recorded bisacodyl 5 mg tablet,delayed 10 mg PO BEDTIME 2 Days #4 tab 10/22/20 release (Dulcolax (bisacodyl)) polyethylene glycol 3350 17 238 g PO ONCE 1 Days #238 g 10/22/20 gram/dose oral powder (Miralax) aluminum-mag hydroxide-simethicone 5 ml PO 5XD PRN #30 ml 02/25/21 200 mg-200 mg-20 mg/5 mL oral susp (Maalox Advanced) dicyclomine 20 mg tablet 20 mg PO TID PRN #14 tab 02/25/21 famotidine 20 mg tablet (Pepcid) 20 mg PO DAILY #14 tab 02/25/21 ondansetron HCl 4 mg tablet 4 mg PO Q8H PRN #10 tab 02/25/21 (Zofran) albuterol sulfate 2.5 mg (3 mL) INHALATION Q4-6H PRN 04/14/21 #90 ml albuterol sulfate 90 mcg/actuation 2 puff INHALATION Q4-6H PRN #8.5 g 04/14/21 aerosol inhaler (ProAir HFA) prednisone 20 mg tablet 40 mg PO DAILY #10 tab 04/14/21 prednisone 20 mg tablet 40 mg PO DAILY 4 Days #8 tab 04/28/21 acetaminophen 500 mg tablet 500 mg PO Q6H PRN #14 tab 07/26/21 (Tylenol Extra Strength) ibuprofen 800 mg tablet 800 mg PO Q8H PRN #14 tab 07/26/21 ondansetron 4 mg disintegrating 4 mg PO Q6-8H PRN #14 tab 07/26/21 tablet Allergies Allergy/AdvReac Type Severity Reaction Status Date / Time No Known Allergies Allergy Verified 04/14/21 13:39 [No Known Allergies*] Review of Systems Review of Systems: Constitutional : No changes in activity, No lethargy, No recent prior head injury, No agitation, No increased fussiness ENT/Mouth : No Ear Pain, No Nasal discharge/drainage Eyes: No Eye Pain, No Swelling, No Redness, No Foreign Body, No Vision Changes Cardiovascular : No Chest Pain, No SOB Respiratory : No Cough Gastrointestinal : + Nausea, No Vomiting, No abdominal Pain Genitourinary : No Dysuria, No Urinary Frequency, No Urinary Incontinence, No Urgency, No Flank Pain Musculoskeletal : No joint pain, No neck stiffness, No back pain/injury Skin : No lacerations Neuro : No unsteady gait, + right arm Paresthesias, No Loss of Consciousness, No altered mental status, No dizziness, + Headache Denies past medical history of HIV, recent trauma, coagulopathy, recent spinal/ epidural procedure, new medication, URI symptoms, close contacts with similar symptoms, tick bite, or known CO2 exposure. Yes all other systems are reviewed and are negative [facility] Past Medical History Attestation statement: The following information was validated with the patient. 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 Blood pressure 151/87. Heart rate normal. Respiration rate normal. Temperature normal. Oxygen saturation normal. Appearance: Alert. Oriented X3. No acute distress. Head: Normal external exam. Normocephalic. Atraumatic. Able to rotate head bilaterally. No temporal artery tendinitis on my exam. Eyes: PERRLA. EOMI. Conjunctiva are normal. Cornea are normal. Patient noted to have retinal hemorrhage to right I had normal funduscopic exam to left eye. Sclera normal. Eyelids normal. No papilledema noted. Anterior chamber normal. No photophobia noted. Pressure to right eye is 10. Pressure to left eye is 9. See nurse's notes for visual acuity. ENT: EAC normal. TM's Normal. Hearing normal. Pharynx normal. Uvula midline. tongue midline. Moist mucous membranes. No trismus noted. No drooling noted. No muffled voice noted. Neck: Normal inspection. Neck supple. FROM. No adenopathy. Thyroid Normal. No meningeal signs. No neck mass noted. CVS: Normal heart rate and rhythm. Heart sound normal. No murmurs noted. Pulses normal throughout. Respiratory: No respiratory distress. Painless inspiration. Breath sounds normal. No wheezes/rales/rhonchi noted. Chest nontender. No accessory muscle usage noted or decreased air movement noted. Back: Full range of motion noted. Skin: Skin warm and dry. Normal skin color. Normal skin turgor. No rashes/lesions/lacerations noted. Extremities: Extremities exhibit normal range of motion. Extremities nontender. Able to shrug shoulders bilaterally and keep up against resistance. Neuro: Oriented X 3. No motor deficit. No sensory deficit. Reflexes normal. Moving all extremities. No focal motor deficits. Cranial nerves II-XI intact bilaterally. Facial strength normal. Normal cognition. Speech normal. Gait normal. Strength 5/5 throughout. No pronator drift. No tremor noted. No fasciculations noted. Muscle tone normal throughout. No asterixis noted. [id number] test normal. Heel to soriano test normal. Tandem gait normal. Does not sway with eyes open. Romberg test negative. Rapid alternating movement upper extremity normal. Rapid alternating movement lower extremity normal. Hand drop from overhead-Mrs. face. No rigidity noted. NIHSS score 0. Course Course Course Narrative: 10:30am - Patient afebrile, resting comfortably in no distress. Non-toxic appearing. Patient denies any recent trauma/injury to head. Neurological exam shows no deficits. BP WNL. Denies any changes in vision. Patient ambulates without difficulty. Given the history, and physical - most likely diagnosis: RENO. gradual onset RENO with nausea. SAH: unlikely given gradual onset and similar to previous episodes Intracranial bleed: unlikely given neg trauma, neg anticoagulation Meningitis: unlikely given pt afebrile, neg stiff neck, no immune compromise. Exam without signs of meningismus Temporal arteritis: Unlikely given Neg jaw claudication, no temporal tenderness or nodularity on exam. Cerebral venous thrombosis: unlikely given no h/o hypercoaguable state, no chronic head/neck infection. Plan: Although due to patient bring in paper from her ramp service man office reporting a right eye retinal hemorrhage will obtain CBC with differential, sed rate, CRP, hemoglobin A1c and a CT scan of her brain. Provide symptomatic treatment with IV fluids, 10 mg of Reglan IV and 50 mg of Benadryl then re-evaluate. Reevaluation(s) Reevaluation #1: - labs reviewed and patient with an elevated CRP at 3.02 otherwise all other labs including ESR within normal limits. ESR is 14. A1c level is 5.6. Therefore not consistent with temporal arteritis or diabetes at this time. - chest x-ray within normal limits no acute processes are noted. - CT scan of brain within normal limits no acute processes are noted. - patient is positive for COVID. - therefore at this time will DC home with symptomatic treatment instructions return if any new or worsening symptoms to follow up PCP/ramp service man. Patient understands agrees with this plan along with instructions to self isolate per CDC guidelines. Patient understands agrees with this plan. Time: 12:01 [facility] - Headache Medical Records Attestation: I reviewed the patient's medical records. Lab Data Attestation: I reviewed the patient's lab results. Result diagrams: 07/26/21 10:53 07/26/21 10:53 Labs: Lab Results 07/26/21 07/26/21 07/26/21 Range/Units 10:53 10:53 10:53 WBC 7.0 (4.8-10.8) X10*3/uL RBC 4.50 (4.20-5.50) X10*6/uL Hgb 13.9 (12.0-16.0) g/dl Hct 41.4 (37.0-47.0) % MCV 92.0 (80.0-98.0) fL MCH 30.9 (27.0-33.0) pg MCHC 33.6 (31.0-35.0) g/dl RDW 13.0 (11.0-16.0) % Plt Count 223 (160-400) X10*3/uL MPV 10.4 (9.4-12.3) fL Immature Gran % (Auto) 0.4 (0.0-0.4) % Neut % (Auto) 70.0 (45-73) % Lymph % (Auto) 15.1 L (20-40) % Calvert % (Auto) 11.8 H (2-11) % Eos % (Auto) 2.4 (0-4) % Baso % (Auto) 0.3 (0-2) % Lymph # (Auto) 1.1 L (1.2-4.9) X10*3/uL Calvert # (Auto) 0.8 (0.1-1.2) X10*3/uL Eos # (Auto) 0.2 (0.0-0.4) X10*3/uL Baso # (Auto) 0.0 (0.0-0.2) X10*3/uL Abs Immat Gran (auto) 0.03 (0.00-0.03) X10*3/uL Absolute Neuts (auto) 4.9 (2.0-8.3) x10*3/uL Absolute Nucleated RBC 0.000 (0.0-0.012) X10*3/uL Nucleated RBC % (auto) 0.0 (0.0-0.2) /100WBC ESR 14 (0-20) MM/HR PT 13.6 H (9.9-13.0) SEC INR 1.2 H (0.9-1.1) Sodium (135-145) mmol/L Potassium (3.3-5.1) mmol/L Chloride (96-108) mmol/L Carbon Dioxide (22-29) mmol/L Anion Gap (12-20) BUN (9-16) mg/dL Creatinine (0.5-1.4) mg/dL Estim Creat Clear Calc Estimated GFR Random Glucose (60-115) mg/dL Estimat Average Glucose mg/dL Hemoglobin A1c % % Calcium (8.4-10.2) mg/dL Magnesium (1.6-2.6) mg/dL Total Bilirubin (0.0-1.0) mg/dL AST (5-31) U/L ALT (0-31) U/L Alkaline Phosphatase (39-117) U/L Troponin I High Sens (<3.5-17.0) ng/L C-Reactive Protein (< or = 0.50) mg/dL Total Protein (6.5-8.0) g/dL Albumin (3.5-5.0) g/dL COVID-19 ([facility]) (Negative) COVID-19 Clin Com 07/26/21 07/26/21 07/26/21 Range/Units 10:53 10:53 10:53 WBC (4.8-10.8) X10*3/uL RBC (4.20-5.50) X10*6/uL Hgb (12.0-16.0) g/dl Hct (37.0-47.0) % MCV (80.0-98.0) fL MCH (27.0-33.0) pg MCHC (31.0-35.0) g/dl RDW (11.0-16.0) % Plt Count (160-400) X10*3/uL MPV (9.4-12.3) fL Immature Gran % (Auto) (0.0-0.4) % Neut % (Auto) (45-73) % Lymph % (Auto) (20-40) % Calvert % (Auto) (2-11) % Eos % (Auto) (0-4) % Baso % (Auto) (0-2) % Lymph # (Auto) (1.2-4.9) X10*3/uL Calvert # (Auto) (0.1-1.2) X10*3/uL Eos # (Auto) (0.0-0.4) X10*3/uL Baso # (Auto) (0.0-0.2) X10*3/uL Abs Immat Gran (auto) (0.00-0.03) X10*3/uL Absolute Neuts (auto) (2.0-8.3) x10*3/uL Absolute Nucleated RBC (0.0-0.012) X10*3/uL Nucleated RBC % (auto) (0.0-0.2) /100WBC ESR (0-20) MM/HR PT (9.9-13.0) SEC INR (0.9-1.1) Sodium 137 (135-145) mmol/L Potassium 3.9 (3.3-5.1) mmol/L Chloride 104 (96-108) mmol/L Carbon Dioxide 24 (22-29) mmol/L Anion Gap 13 (12-20) BUN 11 (9-16) mg/dL Creatinine 0.80 (0.5-1.4) mg/dL Estim Creat Clear Calc 99.0 Estimated GFR > 60 Random Glucose 103 (60-115) mg/dL Estimat Average Glucose 114 mg/dL Hemoglobin A1c % 5.6 % Calcium 9.4 (8.4-10.2) mg/dL Magnesium 1.9 (1.6-2.6) mg/dL Total Bilirubin 0.3 (0.0-1.0) mg/dL AST 13 (5-31) U/L ALT 18 (0-31) U/L Alkaline Phosphatase 78 (39-117) U/L Troponin I High Sens < 3.5 (<3.5-17.0) ng/L C-Reactive Protein 3.02 H (< or = 0.50) mg/dL Total Protein 7.1 (6.5-8.0) g/dL Albumin 4.0 (3.5-5.0) g/dL COVID-19 ([facility]) (Negative) COVID-19 Clin Com 07/26/21 Range/Units 11:47 WBC (4.8-10.8) X10*3/uL RBC (4.20-5.50) X10*6/uL Hgb (12.0-16.0) g/dl Hct (37.0-47.0) % MCV (80.0-98.0) fL MCH (27.0-33.0) pg MCHC (31.0-35.0) g/dl RDW (11.0-16.0) % Plt Count (160-400) X10*3/uL MPV (9.4-12.3) fL Immature Gran % (Auto) (0.0-0.4) % Neut % (Auto) (45-73) % Lymph % (Auto) (20-40) % Calvert % (Auto) (2-11) % Eos % (Auto) (0-4) % Baso % (Auto) (0-2) % Lymph # (Auto) (1.2-4.9) X10*3/uL Calvert # (Auto) (0.1-1.2) X10*3/uL Eos # (Auto) (0.0-0.4) X10*3/uL Baso # (Auto) (0.0-0.2) X10*3/uL Abs Immat Gran (auto) (0.00-0.03) X10*3/uL Absolute Neuts (auto) (2.0-8.3) x10*3/uL Absolute Nucleated RBC (0.0-0.012) X10*3/uL Nucleated RBC % (auto) (0.0-0.2) /100WBC ESR (0-20) MM/HR PT (9.9-13.0) SEC INR (0.9-1.1) Sodium (135-145) mmol/L Potassium (3.3-5.1) mmol/L Chloride (96-108) mmol/L Carbon Dioxide (22-29) mmol/L Anion Gap (12-20) BUN (9-16) mg/dL Creatinine (0.5-1.4) mg/dL Estim Creat Clear Calc Estimated GFR Random Glucose (60-115) mg/dL Estimat Average Glucose mg/dL Hemoglobin A1c % % Calcium (8.4-10.2) mg/dL Magnesium (1.6-2.6) mg/dL Total Bilirubin (0.0-1.0) mg/dL AST (5-31) U/L ALT (0-31) U/L Alkaline Phosphatase (39-117) U/L Troponin I High Sens (<3.5-17.0) ng/L C-Reactive Protein (< or = 0.50) mg/dL Total Protein (6.5-8.0) g/dL Albumin (3.5-5.0) g/dL COVID-19 ([facility]) Positive A (Negative) COVID-19 Clin Com See Note Imaging Data CT scan of brain without contrast: Attestation: I personally reviewed and interpreted this imaging study as follows: Radiologist's impression: FINDINGS: There is no evidence of acute intracranial hemorrhage or territorial infarction. No abnormal mass effect or midline shift is seen. Lyle to white matter differentiation is well preserved. No extra-axial fluid collections are identified. The ventricles are normal in size. There is no abnormal attenuation within the brain parenchyma. The osseous structures and soft tissues are normal. There is mild mucoperiosteal thickening bilateral ethmoid sinuses. Rest the paranasal sinuses and mastoid air cells are well-aerated. CT/CT head/brain wo con IMPRESSION: ? No acute intracranial process seen. ? Mild bilateral chronic ethmoid sinus inflammatory changes Chest x-ray: Attestation: I personally reviewed and interpreted this imaging study as follows: Radiologist's impression: FINDINGS: The heart size is enlarged. Without acute pneumonic process. There is a moderate amount of left supradiaphragmatic fat simulating left lower lobe consolidation. Rest of the lungs are well-expanded and clear. No gross bony abnormality seen. XR/XR chest 2V IMPRESSION: No acute pneumonic process seen. No change from 04/28/2021 chest x-ray. ECG Data Attestation: I personally reviewed and interpreted this ECG as follows: ECG interpretation date: 07/26/21 ECG interpretation time: 11:10 Interpretation: Normal sinus rhythm with a ventricular rate of 73 with a normal SD interval normal QRS duration normal QT/QTC interval. No acute ischemic changes are noted. Similar compared to prior EKG 04/28/2021. Critical Care Time Critical Care Time Critical Care Time: Yes Total Critical Care Time: 60 Attestation: I personally attest to this time spent taking care of the patient Discharge Plan Discharge Clinical Impression: Headache, COVID-19 Patient Disposition: Home, Self-Care Instructions: Acute Headache (ED), COVID-19 (Coronavirus Disease 2019) (ED) Prescriptions: New ibuprofen 800 mg tablet 800 mg PO Q8H PRN (Reason: pain) Qty: 14 RF: 0 ondansetron 4 mg tablet,disintegrating 4 mg PO Q6-8H PRN (Reason: nausea and vomiting) Qty: 14 RF: 0 acetaminophen [Tylenol Extra Strength] 500 mg tablet 500 mg PO Q6H PRN (Reason: pain) Qty: 14 RF: 0 No Action ergocalciferol (vitamin D2) 1,250 mcg (50,000 unit) capsule 1 cap PO QWEEK RF: 0 ondansetron HCl [Zofran] 4 mg tablet 4 mg PO Q8H PRN (Reason: nausea and vomiting) Qty: 10 RF: 0 famotidine [Pepcid] 20 mg tablet 20 mg PO DAILY Qty: 14 RF: 0 dicyclomine 20 mg tablet 20 mg PO TID PRN (Reason: abdominal discomfort) Qty: 14 RF: 0 alum-mag hydroxide-simeth [Maalox Advanced] 200-200-20 mg/5 mL suspension 5 ml PO 5XD PRN (Reason: dyspepsia) Qty: 30 RF: 0 prednisone 20 mg tablet 40 mg PO DAILY Qty: 10 RF: 0 albuterol sulfate [ProAir HFA] 90 mcg/actuation HFA aerosol inhaler 2 puff inhalation Q4-6H PRN (Reason: Wheezing) Qty: 8.5 RF: 0 albuterol sulfate 2.5 mg /3 mL (0.083 %) solution for nebulization 2.5 mg inhalation Q4-6H PRN (Reason: shortness of breath or wheezing) Qty: 90 RF: 0 prednisone 20 mg tablet 40 mg PO DAILY 4 Days Qty: 8 RF: 0 triamcinolone acetonide 0.5 % cream 1 appl topical DAILY RF: 0 cholecalciferol (vitamin D3) 25 mcg (1,000 unit) capsule 25 mcg PO DAILY RF: 0 albuterol sulfate 90 mcg/actuation HFA aerosol inhaler 2 puff inhalation Q6H PRN (Reason: Wheezing) RF: 0 Flovent HFA 110 mcg/actuation HFA aerosol inhaler 1 puff inhalation Q12H RF: 0 bisacodyl [Dulcolax (bisacodyl)] 5 mg tablet,delayed release (DR/EC) 10 mg PO BEDTIME 2 Days Qty: 4 RF: 0 polyethylene glycol 3350 [Miralax] 17 gram/dose powder 238 g PO ONCE 1 Days Qty: 238 RF: 0 Referrals: [place],[facility] [Primary Care Provider] - 2 days Stand Alone Forms: Work/School Release Print Language: Cymraes
[2021-07-26] MEDS: diphenhydrAMINE HCL 50 MG/ML VIAL IVPUSH (11:43)
[2021-07-26] MEDS: Metoclopramide HCl 10 MG/2 ML VIAL IVPUSH (11:43)
[2021-07-26] MEDS: 0.9 % Sodium Chloride 1,000 ML 999 ML IVCONT (11:43)
[2021-07-26 11:47] VITALS: BP 120/63; PULSE 69; RESP 18; O2SAT 97
[2021-07-26 11:54] LABS: Erythrocyte Sedimentation Rate 14 MM/HR (0-20)
[2021-07-26 12:01] LABS: COVID-19 Test Positive (Negative); IDNOW Serial# 55D5AD1C
[2021-07-26] MEDS: dexAMETHasone sod phosphate 10 MG/ML VIAL IVPUSH (13:26)
[2021-07-26] MEDS: Ketorolac Tromethamine 30 MG/ML VIAL IVPUSH (13:27)
[2021-07-26 14:06] VITALS: BP 113/59; PULSE 70; RESP 16; TEMP 37.3; O2SAT 95
[2021-07-26 14:24] LABS: Appearance Urine CLEAR; Color Urine YELLOW; Glucose Urine UA NEG (NEG); Leukocyte Esterase Urine NEG (NEG); Nitrite Urine NEG (NEG); Urine Blood NEG (NEG); Urine Ketones NEG (NEG); Urine Protein NEG (NEG-TRACE)
[2021-07-26 14:30] LABS: UPreg QC Valid YES; Urine Pregnancy NEGATIVE (NEGATIVE)
== END 2021-07-26 14:34 | disposition home or self-care (01) ==
PROVIDERS: Physician Assistant Medical; Emergency Provider Emergency Medicine
DX: U07.1 COVID-19 (principal); R51.9 Headache, unspecified; R42 Dizziness and giddiness; Z20.822 Contact with and (suspected) exposure to COVID-19; Z79.899 Other long term (current) drug therapy
CPT/HCPCS: 36415; 70450; 71046; 80053; 81003; 81025; 83036; 83735; 84484; 85025; 85610; 85652; 86140; 87635; 93005; 96361; 96374; 96375; 99285; 99291; J1100; J1200; J1885; J2765

== ENCOUNTER 2021-11-09 17:34 | Emergency (ER) | payer MEDICAID, SELFPAY ==
--- NOTE | ~2021-11-09 | CT_ITS ---
EXAMINATION: CT ABDOMEN AND PELVIS WITHOUT CONTRAST CLINICAL INFORMATION: Right lower quadrant pain COMPARISON: CT abdomen pelvis 02/24/2021 TECHNIQUE: Multidetector volumetric imaging was performed from the superior aspect of the liver through the pubic symphysis. Sagittal and coronal reformatted images were obtained on the technologist's workstation. This CT examination was performed using dose optimization techniques as appropriate, variously including the following: *Automated exposure control *Adjustment of mA and/or kV according to patient size (this includes techniques or standardized protocols for targeted exams where dose is matched to indication/reason for exam; i.e. extremities or head) *Use of iterative reconstruction technique DLP: 966 mGy-cm FINDINGS: LUNG BASES: The visualized lung bases are unremarkable aside from the presence of significant fat at the left lung base, unchanged. LIVER, GALLBLADDER, AND BILIARY TREE: The liver is normal in size, shape, and attenuation. No focal hepatic lesion or biliary ductal dilatation is present. Status post cholecystectomy. PANCREAS: Unremarkable. SPLEEN: Unremarkable. ADRENAL GLANDS: Unremarkable. KIDNEYS AND URETERS: The kidneys are normal in size, shape, and attenuation. No hydronephrosis, hydroureter, or calculi seen. No perinephric stranding. BLADDER: Unremarkable. GASTROINTESTINAL TRACT: The small and large bowel are unremarkable. The appendix is unremarkable. ABDOMINAL WALL: A small periumbilical hernia seen containing only fat. LYMPH NODES: No retroperitoneal lymphadenopathy. VASCULAR: Unremarkable. PELVIC VISCERA: A normal anteverted uterus is present. An abnormal adnexal mass or free fluid is not seen. OSSEOUS STRUCTURES: There is some mild degenerative changes in the spine most prominent in the lower thoracic region and L5-S1. CT/CT abdomen pelvis wo con IMPRESSION: A cause for the patient's right lower quadrant pain has not been found. The appendix appears normal. Fleischner guidelines were followed.
[2021-11-09 17:47] VITALS: BP 140/62; PULSE 71; RESP 16; TEMP 36.3; O2SAT 99; BMI 44.8
[2021-11-09 19:12] LABS: MANUAL DIFF FLAG NO
[2021-11-09 19:14] LABS: Basophils Absolute Auto 0.1 X10*3/uL (0.0-0.2); Basophils Percent Auto 0.6 % (0-2); Eosinophils Absolute Auto 0.3 X10*3/uL (0.0-0.4); Eosinophils Percent Auto 3.7 % (0-4); Hematocrit 40.9 % (37.0-47.0); Hemoglobin 13.5 g/dl (12.0-16.0); Imm Gran Abs Auto 0.03 X10*3/uL (0.00-0.03); Imm Gran Pct Auto 0.4 % (0.0-0.4); Lymphocytes Absolute Auto 2.3 X10*3/uL (1.2-4.9); Lymphocytes Percent Auto 26.9 % (20-40); Mean Corpuscular Hemoglobin 30.5 pg (27.0-33.0); Mean Corpuscular Volume 92.3 fL (80.0-98.0); Mean Platelet Volume 10.4 fL (9.4-12.3); Monocytes Absolute Auto 0.5 X10*3/uL (0.1-1.2); Monocytes Percent Auto 6.2 % (2-11); Neutrophils Absolute Auto 5.3 x10*3/uL (2.0-8.3); Neutrophils Percent Auto 62.2 % (45-73); Platelet Count 238 X10*3/uL (160-400); Red Blood Count 4.43 X10*6/uL (4.20-5.50); Red Cell Distribution Width 12.3 % (11.0-16.0); White Blood Count 8.6 X10*3/uL (4.8-10.8)
[2021-11-09 19:26] LABS: Anion Gap 12 (12-20); Blood Urea Nitrogen 9 mg/dL (9-16); Calcium 9.6 mg/dL (8.4-10.2); Carbon Dioxide 28 mmol/L (22-29); Chloride 106 mmol/L (96-108); Creatinine Clr Calc Pharmacy 111.8; Estimated Glomerular Filt Rate > 60; Glucose Random 92 mg/dL (60-115); Potassium 4.6 mmol/L (3.3-5.1); Sodium 141 mmol/L (135-145)
[2021-11-09 23:10] VITALS: BP 126/58; PULSE 67; RESP 16; TEMP 36.7; O2SAT 95
--- NOTE | 2021-11-09 23:19 | ED.ABDPAIN ---
HPI - Abdominal Pain General Chief Complaint: Abdominal Pain Stated Complaint: back pain Time Seen by Provider: 11/09/21 23:17 Source: patient Mode of arrival: ambulatory Limitations: no limitations History of Present Illness HPI narrative: Patient no significant abdominal complaints in the past complaining of lower abdominal pain since afternoon today associated with diarrhea had 4 bowel movements feel nauseated. No fever no chills no urinary complaints no blood in the stool almond was a 14:00 patient feels increased pain when she ambulates patient is status post cholecystectomy Related Data Home Medications Medication Instructions Recorded Confirmed albuterol sulfate 90 mcg/actuation 2 puff INHALATION Q6H PRN 07/29/20 12/02/20 aerosol inhaler cholecalciferol (vitamin D3) 25 25 mcg PO DAILY 07/29/20 12/02/20 mcg (1,000 unit) capsule fluticasone propionate 110 1 puff INHALATION Q12H 07/29/20 12/08/20 mcg/actuation HFA aerosol inhaler (Flovent HFA) triamcinolone acetonide 0.5 % 1 appl TOPICAL DAILY 07/29/20 12/02/20 topical cream ergocalciferol (vitamin D2) 1,250 1 cap PO QWEEK 12/02/20 12/02/20 mcg (50,000 unit) capsule Previous Rx's Medication Instructions Recorded bisacodyl 5 mg tablet,delayed 10 mg PO BEDTIME 2 Days #4 tab 10/22/20 release (Dulcolax (bisacodyl)) polyethylene glycol 3350 17 238 g PO ONCE 1 Days #238 g 10/22/20 gram/dose oral powder (Miralax) aluminum-mag hydroxide-simethicone 5 ml PO 5XD PRN #30 ml 02/25/21 200 mg-200 mg-20 mg/5 mL oral susp (Maalox Advanced) dicyclomine 20 mg tablet 20 mg PO TID PRN #14 tab 02/25/21 famotidine 20 mg tablet (Pepcid) 20 mg PO DAILY #14 tab 02/25/21 ondansetron HCl 4 mg tablet 4 mg PO Q8H PRN #10 tab 02/25/21 (Zofran) albuterol sulfate 2.5 mg (3 mL) INHALATION Q4-6H PRN 04/14/21 #90 ml albuterol sulfate 90 mcg/actuation 2 puff INHALATION Q4-6H PRN #8.5 g 04/14/21 aerosol inhaler (ProAir HFA) prednisone 20 mg tablet 40 mg PO DAILY #10 tab 04/14/21 prednisone 20 mg tablet 40 mg PO DAILY 4 Days #8 tab 04/28/21 acetaminophen 500 mg tablet 500 mg PO Q6H PRN #14 tab 07/26/21 (Tylenol Extra Strength) ibuprofen 800 mg tablet 800 mg PO Q8H PRN #14 tab 07/26/21 ondansetron 4 mg disintegrating 4 mg PO Q6-8H PRN #14 tab 07/26/21 tablet dicyclomine 20 mg tablet 20 mg PO QID PRN #20 tab 11/10/21 ondansetron 4 mg disintegrating 4 mg PO Q6-8H PRN #7 tab 11/10/21 tablet Allergies Allergy/AdvReac Type Severity Reaction Status Date / Time No Known Allergies Allergy Verified 04/14/21 13:39 [No Known Allergies*] Review of Systems Review of Systems Yes all other systems are reviewed and are negative FOR[facility]LY [facility] Past Medical History Medical History Asthma Hypovitaminosis D Surgical History History of bilateral tubal ligation History of Hx of cholecystectomy Social History Social History Household Members: Children Alcohol intake: never Patient Tobacco Use Status: Never used Tobacco Advance Directives: No Advance Directives Information Provided: Yes Patient : No Current occupational status: employed 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 Oriented X3. No acute distress. Eyes: No pallor/ icterus ENT: Pharynx normal. Oral Mucosa moist Neck: Normal inspection. Neck supple. CVS: Normal heart rate and rhythm. Pulses normal. Respiratory: No respiratory distress. Equal air entry bilateral, no wheezing/rales/rhonchi Abdomen: Soft , deep tenderness slight lower quadrant no rebound tenderness or guarding Bowel sounds are present, no mass palpable, no CVA tenderness Skin: Skin warm and dry. Normal skin color. Normal skin turgor. Extremities: No lower extremity edema. No calf tenderness Neuro: Oriented X 3. MDM - Abdominal Pain MDM Narrative Medical decision making narrative: Patient has stable labs CT scan negative for acute appendicitis patient feeling much better after Zofran dicyclomine likely from viral will discharge patient home Lab Data Attestation: I reviewed the patient's lab results. Result diagrams: 11/09/21 19:05 11/09/21 19:05 Labs: Lab Results 11/09/21 11/09/21 11/10/21 Range/Units 19:05 19:05 00:40 WBC 8.6 (4.8-10.8) X10*3/uL RBC 4.43 (4.20-5.50) X10*6/uL Hgb 13.5 (12.0-16.0) g/dl Hct 40.9 (37.0-47.0) % MCV 92.3 (80.0-98.0) fL MCH 30.5 (27.0-33.0) pg MCHC 33.0 (31.0-35.0) g/dl RDW 12.3 (11.0-16.0) % Plt Count 238 (160-400) X10*3/uL MPV 10.4 (9.4-12.3) fL Immature Gran % (Auto) 0.4 (0.0-0.4) % Neut % (Auto) 62.2 (45-73) % Lymph % (Auto) 26.9 (20-40) % [place] % (Auto) 6.2 (2-11) % Eos % (Auto) 3.7 (0-4) % Baso % (Auto) 0.6 (0-2) % Lymph # (Auto) 2.3 (1.2-4.9) X10*3/uL [place] # (Auto) 0.5 (0.1-1.2) X10*3/uL Eos # (Auto) 0.3 (0.0-0.4) X10*3/uL Baso # (Auto) 0.1 (0.0-0.2) X10*3/uL Abs Immat Gran (auto) 0.03 (0.00-0.03) X10*3/uL Absolute Neuts (auto) 5.3 (2.0-8.3) x10*3/uL Absolute Nucleated RBC 0.000 (0.0-0.012) X10*3/uL Nucleated RBC % (auto) 0.0 (0.0-0.2) /100WBC Sodium 141 (135-145) mmol/L Potassium 4.6 (3.3-5.1) mmol/L Chloride 106 (96-108) mmol/L Carbon Dioxide 28 (22-29) mmol/L Anion Gap 12 (12-20) BUN 9 (9-16) mg/dL Creatinine 0.70 (0.5-1.4) mg/dL Estim Creat Clear Calc 111.8 Estimated GFR > 60 Random Glucose 92 (60-115) mg/dL Calcium 9.6 (8.4-10.2) mg/dL Urine Color YELLOW Urine Appearance CLEAR Urine pH 5.5 (5.0-8.0) Ur Specific [place] >= 1.030 H (1.005-1.025) Urine Protein NEG (NEG-TRACE) MG/DL Urine Glucose (UA) NEG (NEG) MG/DL Urine Ketones NEG (NEG) MG/DL Urine Blood NEG (NEG) Urine Nitrite NEG (NEG) Ur Leukocyte Esterase NEG (NEG) Discharge Plan Discharge Clinical Impression: Gastroenteritis Patient Disposition: Home, Self-Care Instructions: Gastroenteritis (ED) Additional Instructions: Drink plenty of fluids Meds for nausea and abdominal cramps as advised Follow up with PCP Yisel millero l?[facility] para las n?useas y los calambres abdominales seg?n lo recomendado Seguimiento con PCP Prescriptions: New dicyclomine 20 mg tablet 20 mg PO QID PRN (Reason: abdominal pain) Qty: 20 0RF ondansetron 4 mg tablet,disintegrating 4 mg PO Q6-8H PRN (Reason: nausea and vomiting) Qty: 7 0RF No Action ergocalciferol (vitamin D2) 1,250 mcg (50,000 unit) capsule 1 cap PO QWEEK 0RF ondansetron HCl [Zofran] 4 mg tablet 4 mg PO Q8H PRN (Reason: nausea and vomiting) Qty: 10 0RF famotidine [Pepcid] 20 mg tablet 20 mg PO DAILY Qty: 14 0RF dicyclomine 20 mg tablet 20 mg PO TID PRN (Reason: abdominal discomfort) Qty: 14 0RF alum-mag hydroxide-simeth [Maalox Advanced] 200-200-20 mg/5 mL suspension 5 ml PO 5XD PRN (Reason: dyspepsia) Qty: 30 0RF Rx Instructions: administer between meals and at bedtime prednisone 20 mg tablet 40 mg PO DAILY Qty: 10 0RF albuterol sulfate [ProAir HFA] 90 mcg/actuation HFA aerosol inhaler 2 puff inhalation Q4-6H PRN (Reason: Wheezing) Qty: 8.5 0RF albuterol sulfate 2.5 mg /3 mL (0.083 %) solution for nebulization 2.5 mg inhalation Q4-6H PRN (Reason: shortness of breath or wheezing) Qty: 90 0RF ibuprofen 800 mg tablet 800 mg PO Q8H PRN (Reason: pain) Qty: 14 0RF ondansetron 4 mg tablet,disintegrating 4 mg PO Q6-8H PRN (Reason: nausea and vomiting) Qty: 14 0RF acetaminophen [Tylenol Extra Strength] 500 mg tablet 500 mg PO Q6H PRN (Reason: pain) Qty: 14 0RF prednisone 20 mg tablet 40 mg PO DAILY 4 Days Qty: 8 0RF triamcinolone acetonide 0.5 % cream 1 appl topical DAILY 0RF cholecalciferol (vitamin D3) 25 mcg (1,000 unit) capsule 25 mcg PO DAILY 0RF albuterol sulfate 90 mcg/actuation HFA aerosol inhaler 2 puff inhalation Q6H PRN (Reason: Wheezing) 0RF Flovent HFA 110 mcg/actuation HFA aerosol inhaler 1 puff inhalation Q12H 0RF bisacodyl [Dulcolax (bisacodyl)] 5 mg tablet,delayed release (DR/EC) 10 mg PO BEDTIME 2 Days Qty: 4 0RF polyethylene glycol 3350 [Miralax] 17 gram/dose powder 238 g PO ONCE 1 Days Qty: 238 0RF Interventions: ED Discharge Assessment Last Done: 11/10/21 02:01 Discharge Date/Time: 11/10/21 02:07 Print Language: Palestinian
[2021-11-10] MEDS: Ondansetron ODT 4 MG TAB.RAPDIS TRANSLINGU
[2021-11-10] MEDS: Dicyclomine HCl 10 MG CAPSULE 20 MG PO
[2021-11-10 00:45] LABS: Appearance Urine CLEAR; Color Urine YELLOW; Glucose Urine UA NEG (NEG); Leukocyte Esterase Urine NEG (NEG); Nitrite Urine NEG (NEG); PH 5.5 (5.0-8.0); Specific Gravity - Urine >= 1.030 (1.005-1.025); Urine Blood NEG (NEG); Urine Ketones NEG (NEG); Urine Protein NEG (NEG-TRACE)
== END 2021-11-10 02:07 | disposition home or self-care (01) ==
PROVIDERS: Emergency Provider Internal Medicine
DX: K52.9 Noninfective gastroenteritis and colitis, unspecified (principal); J45.909 Unspecified asthma, uncomplicated; Z90.49 Acquired absence of other specified parts of digestive tract
CPT/HCPCS: 36415; 74176; 80048; 81003; 85025; 99284

== ENCOUNTER 2021-11-24 12:38 | Outpatient (REF) | payer MEDICAID, SELFPAY ==
--- NOTE | ~2021-11-24 | US_ITS ---
EXAMINATION: US THYROID CLINICAL INFORMATION: Lump left side thyroid. COMPARISON: None TECHNIQUE: Linear transducer grayscale and color Doppler examination with attention to the region of the thyroid. FINDINGS: SIZE: Measurements of the thyroid lobes and nodules are given in sagittal, anteroposterior and transverse dimensions respectively. Right Thyroid Lobe: 4.47 x 1.73 x 1.53 cm, volume 6.19 mL. Parenchyma: The gland echotexture is homogeneous. Thyroid vascularity is normal. Left Thyroid Lobe: 3.65 x 1.45 x 1.39 cm, volume 3.87 mL. Parenchyma: The gland echotexture is homogeneous. Thyroid vascularity is normal. Isthmus: 0.57 cm in maximum AP dimension. Estimated total number of nodules greater than or equal to 1 cm: 0. Applied Technologist nodules are described as follows: 1. Location: Right mid. Size: 1.1 x 0.60 x 0.76 cm, volume 0.25 mL. Nodule characteristics: Composition: Spongiform (0). Echogenicity: Anechoic (0). Shape: Not taller than wide (0). Margins: Smooth (0). Echogenic Foci: None (0). ACR TI-RADS total points: 0 ACR TI-RADS category: 1 2. Location: Right mid. Size: 0.70 x 0.31 x 0.71 cm, volume 0.10 mL. Nodule characteristics: Composition: Cystic(0). ACR TI-RADS total points: 0 ACR TI-RADS category: 1 3. Location: Right mid. Size: 0.80 x 0.34 x 0.50 cm, volume 0.07 mL. Nodule characteristics: Composition: Cystic(0). ACR TI-RADS total points: 0 ACR TI-RADS category: 1 4. Location: Right mid. Size: 0.50 x 0.30 x 0.46 cm, volume 0.04 mL. Nodule characteristics: Composition: Cystic(0). ACR TI-RADS total points: 0 ACR TI-RADS category: 1 NODES: No lymphadenopathy is seen in the tissue surrounding the thyroid gland. US/US thyroid IMPRESSION: Small bilateral thyroid nodules. ACR TI-RADS RECOMMENDATION REFERENCE: Ultrasound-guided fine-needle aspiration, followup ultrasound, no further follow up. * TR1 (0 point) and TR 2 (2 points): No FNA or follow up * TR3 (3 points): FNA if more than or equal to 2.5 cm in maximum dimension, followup ultrasound in 1, 3 and 5 years if 1.5 to 2.4 cm in maximum dimension. * TR4 (4-6 points): FNA if more than or equal to 1.5 cm in maximum dimension, followup ultrasound in 1, 2, 3 and 5 years if 1 to 1.4 cm in maximum dimension. * TR5 (more than or equal to 7 points): FNA if more than or equal to 1 cm in maximum dimension, followup ultrasound every year for 5 years if 0.5 to 0.9 cm in maximum dimension. * TR3, TR4 or TR5 nodules that are below the size threshold for follow up receive no follow up.
== END 2021-11-24 12:39 | disposition home or self-care (01) ==
LOC: HO.HMGCX 12:38
PROVIDERS: Visit Provider Nurse Practitioner Primary Care
DX: R09.89 Other specified symptoms and signs involving the circulatory and respiratory systems (principal)
CPT/HCPCS: 76536

== ENCOUNTER 2022-03-13 16:33 | Emergency (ER) | payer MEDICAID, SELFPAY ==
--- NOTE | ~2022-03-13 | XR_ITS ---
EXAMINATION: PORTABLE CHEST 1 VIEW CLINICAL INFORMATION: cough . COMPARISON: No recent pertinent prior studies are available for comparison. TECHNIQUE: Portable frontal view of the chest was obtained. FINDINGS: The lungs are mildly hypoexpanded with linear markings at the left base suggesting underlying scarring or atelectasis. No significant effusion, overt edema, or pneumothorax. Cardiac and mediastinal silhouettes are within normal limits for technique. No acute bony abnormality seen. XR/XR chest 1V IMPRESSION: Mildly hypoexpanded with linear markings at the left base more likely due to atelectasis or scarring
[2022-03-13 16:41] VITALS: BP 133/66; PULSE 80; RESP 18; TEMP 37.1; O2SAT 96; BMI 45.3
[2022-03-13 16:55] LABS: MANUAL DIFF FLAG NO
[2022-03-13 16:57] LABS: Basophils Percent Auto 0.3 % (0-2); Eosinophils Absolute Auto 0.3 X10*3/uL (0.0-0.4); Eosinophils Percent Auto 3.7 % (0-4); Hematocrit 39.3 % (37.0-47.0); Hemoglobin 13.1 g/dl (12.0-16.0); Imm Gran Abs Auto 0.02 X10*3/uL (0.00-0.03); Imm Gran Pct Auto 0.3 % (0.0-0.4); Lymphocytes Absolute Auto 1.4 X10*3/uL (1.2-4.9); Lymphocytes Percent Auto 18.7 % (20-40); Mean Corpuscular HGB Conc 33.3 g/dl (31.0-35.0); Mean Corpuscular Volume 92.9 fL (80.0-98.0); Mean Platelet Volume 10.5 fL (9.4-12.3); Monocytes Absolute Auto 0.4 X10*3/uL (0.1-1.2); Monocytes Percent Auto 4.9 % (2-11); Neutrophils Absolute Auto 5.3 x10*3/uL (2.0-8.3); Neutrophils Percent Auto 72.1 % (45-73); Platelet Count 226 X10*3/uL (160-400); Red Blood Count 4.23 X10*6/uL (4.20-5.50); Red Cell Distribution Width 12.8 % (11.0-16.0); White Blood Count 7.3 X10*3/uL (4.8-10.8)
[2022-03-13 17:16] LABS: COVID-19 Test Negative (Negative)
[2022-03-13 17:18] LABS: Alanine Aminotransferase 16 U/L (0-31); Albumin Level 4.1 g/dL (3.5-5.0); Alkaline Phosphatase 105 U/L (39-117); Anion Gap 16 (12-20); Aspartate Amino Transferase 15 U/L (5-31); Bilirubin Total 0.2 mg/dL (0.0-1.0); Blood Urea Nitrogen 20 mg/dL (9-16); Calcium 8.7 mg/dL (8.4-10.2); Carbon Dioxide 23 mmol/L (22-29); Chloride 108 mmol/L (96-108); Creatinine Clr Calc Pharmacy 89.3; Estimated Glomerular Filt Rate > 60; Glucose Random 177 mg/dL (60-115); Sodium 143 mmol/L (135-145)
[2022-03-13 18:46] VITALS: BP 140/82; PULSE 75; RESP 18; O2SAT 96
[2022-03-13 22:45] VITALS: PULSE 66; RESP 18; O2SAT 100
[2022-03-13] MEDS: predniSONE 20 MG TABLET 60 MG PO (23:10)
--- NOTE | 2022-03-14 00:23 | ED_ITS ---
HPI - SOB/Dyspnea General Chief Complaint: Dyspnea Stated Complaint: SOB Asthma Time Seen by Provider: 03/13/22 22:10 History of Present Illness HPI Narrative: Patient complains of asthma wheezing and shortness of breath for 2 days, as well as a productive cough for 2 days, denies fever denies vomiting denies chest pain Related Data Home Medications Medication Instructions Recorded Confirmed albuterol sulfate 90 mcg/actuation 2 puff inhalation Q6H PRN Wheezing 07/29/20 12/02/20 aerosol inhaler cholecalciferol (vitamin D3) 25 25 mcg PO DAILY 07/29/20 12/02/20 mcg (1,000 unit) capsule fluticasone propionate 110 1 puff inhalation Q12H 07/29/20 12/08/20 mcg/actuation HFA aerosol inhaler (Flovent HFA) triamcinolone acetonide 0.5 % 1 appl topical DAILY 07/29/20 12/02/20 topical cream ergocalciferol (vitamin D2) 1,250 1 cap PO QWEEK 12/02/20 12/02/20 mcg (50,000 unit) capsule Previous Rx's Medication Instructions Recorded bisacodyl 5 mg tablet,delayed 10 mg PO BEDTIME 2 days #4 tabs 10/22/20 release (Dulcolax (bisacodyl)) polyethylene glycol 3350 17 238 g PO ONCE 1 day #238 grams 10/22/20 gram/dose oral powder (Miralax) aluminum-mag hydroxide-simethicone 5 ml PO 5XD PRN dyspepsia #30 mL 02/25/21 200 mg-200 mg-20 mg/5 mL oral susp (Maalox Advanced) dicyclomine 20 mg tablet 20 mg PO TID PRN abdominal 02/25/21 discomfort #14 tabs famotidine 20 mg tablet (Pepcid) 20 mg PO DAILY #14 tabs 02/25/21 ondansetron HCl 4 mg tablet 4 mg PO Q8H PRN nausea and 02/25/21 (Zofran) vomiting #10 tabs albuterol sulfate 2.5 mg/3 mL 2.5 mg (3 mL) inhalation Q4-6H PRN 04/14/21 (0.083 %) solution for nebulization shortness of breath or wheezing #90 mL albuterol sulfate 90 mcg/actuation 2 puff inhalation Q4-6H PRN 04/14/21 aerosol inhaler (ProAir HFA) Wheezing #8.5 grams prednisone 20 mg tablet 40 mg PO DAILY #10 tabs 04/14/21 prednisone 20 mg tablet 40 mg PO DAILY 4 days #8 tabs 04/28/21 acetaminophen 500 mg tablet 500 mg PO Q6H PRN pain #14 tabs 07/26/21 (Tylenol Extra Strength) ibuprofen 800 mg tablet 800 mg PO Q8H PRN pain #14 tabs 07/26/21 ondansetron 4 mg disintegrating 4 mg PO Q6-8H PRN nausea and 07/26/21 tablet vomiting #14 tabs dicyclomine 20 mg tablet 20 mg PO QID PRN abdominal pain 11/10/21 #20 tabs ondansetron 4 mg disintegrating 4 mg PO Q6-8H PRN nausea and 11/10/21 tablet vomiting #7 tabs albuterol sulfate 2.5 mg/3 mL 2.5 mg (3 mL) inhalation Q4-6H PRN 03/14/22 (0.083 %) solution for nebulization shortness of breath or wheezing #75 mL albuterol sulfate 90 mcg/actuation 2 puff inhalation Q4-6H PRN 03/14/22 aerosol inhaler shortness of breath or wheezing #8.5 grams azithromycin 250 mg tablet See Rx Instructions PO .COMPLEX #6 03/14/22 (Zithromax Z-Karlos) tabs prednisone 20 mg tablet 60 mg PO DAILY 5 days #15 tabs 03/14/22 Allergies Allergy/AdvReac Type Severity Reaction Status Date / Time No Known Allergies Allergy Verified 04/14/21 13:39 [No Known Allergies*] Review of Systems Review of Systems: Positive for wheezing shortness of breath and cough Negatives are no fever no chills no dizziness no weakness no fainting no feeling faint no headache no neck pain no chest pain no palpitations no abdominal pain no nausea or vomiting no dysuria no leg swelling no calf pain or swelling no skin rash Yes all other systems are reviewed and are negative PMFSH Past Medical History Source: nursing notes reviewed Medical History Asthma Hypovitaminosis D Surgical History History of bilateral tubal ligation History of Hx of cholecystectomy Social History Social History Household Members: Children Alcohol intake: never Patient Tobacco Use Status: Never used Tobacco Advance Directives: No Advance Directives Information Provided: No Current occupational status: employed Current occupation: [employer] Sexual orientation: Straight/Heterosexual Gender identity: Female Physical Exam Vital Signs: Vital Signs: Last Vital Signs Temp 98.7 F 03/13/22 16:41 Pulse 66 03/13/22 22:45 Resp 18 03/13/22 22:45 BP 140/82 H 03/13/22 18:46 Pulse Ox 96 03/13/22 18:46 O2 Del Method 03/13/22 18:46 BMI result Body Mass Index 45.3 General appearance no acute distress, speaking full sentences no accessory muscles Eyes no redness or discharge The nose no congestion The pharynx is clear, moist mucous membranes Neck is supple Chest there is wheezing and decreased breath sounds bilaterally The heart no murmur Abdomen soft nontender Extremities no edema no calf tenderness or swelling Course Course Course Narrative: Patient got a 1 hour continuous treatment and felt much better afterwards, although she was still wheezing the repeat chest exam showed good air entry bilaterally, improved over previously diminished breath sounds Patient was discharged but advised if the shortness of breath returns she could return any time to the ER, she was comfortable and well-appearing on discharge Chest x-ray was negative for pneumonia but as patient had productive cough she was treated with antibiotic for bronchitis MDM - SOB/Dyspnea Lab Data Attestation: I reviewed the patient's lab results. Result diagrams: 03/13/22 16:47 03/13/22 16:47 Labs: Lab Results 03/13/22 03/13/22 03/13/22 Range/Units 16:45 16:47 16:47 WBC 7.3 (4.8-10.8) X10*3/uL RBC 4.23 (4.20-5.50) X10*6/uL Hgb 13.1 (12.0-16.0) g/dl Hct 39.3 (37.0-47.0) % MCV 92.9 (80.0-98.0) fL MCH 31.0 (27.0-33.0) pg MCHC 33.3 (31.0-35.0) g/dl RDW 12.8 (11.0-16.0) % Plt Count 226 (160-400) X10*3/uL MPV 10.5 (9.4-12.3) fL Immature Gran % (Auto) 0.3 (0.0-0.4) % Neut % (Auto) 72.1 (45-73) % Lymph % (Auto) 18.7 L (20-40) % [place] % (Auto) 4.9 (2-11) % Eos % (Auto) 3.7 (0-4) % Baso % (Auto) 0.3 (0-2) % Lymph # (Auto) 1.4 (1.2-4.9) X10*3/uL [place] # (Auto) 0.4 (0.1-1.2) X10*3/uL Eos # (Auto) 0.3 (0.0-0.4) X10*3/uL Baso # (Auto) 0.0 (0.0-0.2) X10*3/uL Abs Immat Gran (auto) 0.02 (0.00-0.03) X10*3/uL Absolute Neuts (auto) 5.3 (2.0-8.3) x10*3/uL Absolute Nucleated RBC 0.000 (0.0-0.012) X10*3/uL Nucleated RBC % (auto) 0.0 (0.0-0.2) /100WBC Sodium 143 (135-145) mmol/L Potassium 4.0 (3.3-5.1) mmol/L Chloride 108 (96-108) mmol/L Carbon Dioxide 23 (22-29) mmol/L Anion Gap 16 (12-20) BUN 20 H D (9-16) mg/dL Creatinine 0.84 (0.5-1.4) mg/dL Estim Creat Clear Calc 89.3 Estimated GFR > 60 Random Glucose 177 H (60-115) mg/dL Calcium 8.7 D (8.4-10.2) mg/dL Total Bilirubin 0.2 (0.0-1.0) mg/dL AST 15 (5-31) U/L ALT 16 (0-31) U/L Alkaline Phosphatase 105 D (39-117) U/L Total Protein 7.0 (6.5-8.0) g/dL Albumin 4.1 (3.5-5.0) g/dL COVID-19 ([facility]) Negative (Negative) COVID-19 Clin Com See Note Discharge Plan Discharge Clinical Impression: Asthma exacerbation, Bronchitis Patient Disposition: Home, Self-Care Additional Instructions: Use your albuterol as needed Prednisone will reduce inflammation usually within 1-2 days and get rid of wheezing Zithromax antibiotic for bronchitis Return to the ER any time for shortness of breath or any difficulty breathing or any worse condition or concerns Prescriptions: New prednisone 20 mg tablet 60 mg PO DAILY 5 Days Qty: 15 0RF albuterol sulfate 2.5 mg /3 mL (0.083 %) solution for nebulization 2.5 mg inhalation Q4-6H PRN (Reason: shortness of breath or wheezing) Qty: 75 0RF albuterol sulfate 90 mcg/actuation HFA aerosol inhaler 2 puff inhalation Q4-6H PRN (Reason: shortness of breath or wheezing) Qty: 8.5 0RF azithromycin [Zithromax Z-Karlos] 250 mg tablet See Rx Instructions .ROUTE .COMPLEX Qty: 6 0RF Rx Instructions: For 250 mg dose pack: take 500 mg today (day 1), then 250 mg for 4 days (days 2-5) No Action ergocalciferol (vitamin D2) 1,250 mcg (50,000 unit) capsule 1 cap PO QWEEK ondansetron HCl [Zofran] 4 mg tablet 4 mg PO Q8H PRN (Reason: nausea and vomiting) Qty: 10 0RF famotidine [Pepcid] 20 mg tablet 20 mg PO DAILY Qty: 14 0RF dicyclomine 20 mg tablet 20 mg PO TID PRN (Reason: abdominal discomfort) Qty: 14 0RF alum-mag hydroxide-simeth [Maalox Advanced] 200-200-20 mg/5 mL suspension 5 ml PO 5XD PRN (Reason: dyspepsia) Qty: 30 0RF Rx Instructions: administer between meals and at bedtime prednisone 20 mg tablet 40 mg PO DAILY Qty: 10 0RF albuterol sulfate [ProAir HFA] 90 mcg/actuation HFA aerosol inhaler 2 puff inhalation Q4-6H PRN (Reason: Wheezing) Qty: 8.5 0RF albuterol sulfate 2.5 mg /3 mL (0.083 %) solution for nebulization 2.5 mg inhalation Q4-6H PRN (Reason: shortness of breath or wheezing) Qty: 90 0RF ibuprofen 800 mg tablet 800 mg PO Q8H PRN (Reason: pain) Qty: 14 0RF ondansetron 4 mg tablet,disintegrating 4 mg PO Q6-8H PRN (Reason: nausea and vomiting) Qty: 14 0RF acetaminophen [Tylenol Extra Strength] 500 mg tablet 500 mg PO Q6H PRN (Reason: pain) Qty: 14 0RF dicyclomine 20 mg tablet 20 mg PO QID PRN (Reason: abdominal pain) Qty: 20 0RF ondansetron 4 mg tablet,disintegrating 4 mg PO Q6-8H PRN (Reason: nausea and vomiting) Qty: 7 0RF prednisone 20 mg tablet 40 mg PO DAILY 4 Days Qty: 8 0RF triamcinolone acetonide 0.5 % cream 1 appl topical DAILY cholecalciferol (vitamin D3) 25 mcg (1,000 unit) capsule 25 mcg PO DAILY albuterol sulfate 90 mcg/actuation HFA aerosol inhaler 2 puff inhalation Q6H PRN (Reason: Wheezing) Flovent HFA 110 mcg/actuation HFA aerosol inhaler 1 puff inhalation Q12H bisacodyl [Dulcolax (bisacodyl)] 5 mg tablet,delayed release (DR/EC) 10 mg PO BEDTIME 2 Days Qty: 4 0RF polyethylene glycol 3350 [Miralax] 17 gram/dose powder 238 g PO ONCE 1 Days Qty: 238 0RF Stand Alone Forms: Work/School Release Interventions: ED Discharge Assessment Last Done: 03/14/22 00:48 Discharge Date/Time: 03/14/22 00:48
== END 2022-03-14 00:48 | disposition home or self-care (01) ==
PROVIDERS: Emergency Provider Internal Medicine; PCP Internal Medicine
DX: J45.901 Unspecified asthma with (acute) exacerbation (principal); J40 Bronchitis, not specified as acute or chronic; Z20.822 Contact with and (suspected) exposure to COVID-19; B20 Human immunodeficiency virus [HIV] disease; F17.200 Nicotine dependence, unspecified, uncomplicated; E66.01 Morbid (severe) obesity due to excess calories; Z68.42 Body mass index [BMI] 45.0-49.9, adult
CPT/HCPCS: 71045; 80053; 85025; 87635; 94640; 99283; 99284

== ENCOUNTER → 2022-04-11 15:39 | Outpatient (BNVA) | payer MEDICAID, SELFPAY | PROVIDERS: PCP Internal Medicine; Visit Provider Physician Assistant Surgical | DX: E66.01 Morbid (severe) obesity due to excess calories (principal); Z68.41 Body mass index [BMI] 40.0-44.9, adult | CPT/HCPCS: 99212 ==

== ENCOUNTER 2022-04-20 08:53 | Outpatient (REF) | payer MEDICAID, SELFPAY ==
--- NOTE | ~2022-04-20 | XR_ITS ---
EXAMINATION: XR CHEST CLINICAL INFORMATION: Obesity COMPARISON: Previous chest x-ray most recent two-view chest July [address] of the abdomen and pelvis most recent October 2021 TECHNIQUE: 2 views of the chest were obtained. FINDINGS: The cardiac and mediastinal contours are stable. There is stable increased density at the left lung base compared to prior exams. This corresponds to fat when compared with previous CT scan. The lungs are otherwise clear. There is no pleural effusion or pneumothorax. There are degenerative changes of the spine. XR/XR chest 2V IMPRESSION: Stable increased density at the left lung base corresponding to fat when compared with previous CT scan. No evidence for acute disease in the chest.
[2022-04-20 09:14] LABS: MANUAL DIFF FLAG NO
[2022-04-20 09:32] LABS: Basophils Percent Auto 0.4 % (0-2); Eosinophils Absolute Auto 0.3 X10*3/uL (0.0-0.4); Hematocrit 42.3 % (37.0-47.0); Hemoglobin 14.2 g/dl (12.0-16.0); Imm Gran Abs Auto 0.01 X10*3/uL (0.00-0.03); Imm Gran Pct Auto 0.1 % (0.0-0.4); Lymphocytes Percent Auto 29.1 % (20-40); Mean Corpuscular HGB Conc 33.6 g/dl (31.0-35.0); Mean Corpuscular Hemoglobin 30.7 pg (27.0-33.0); Mean Corpuscular Volume 91.4 fL (80.0-98.0); Mean Platelet Volume 10.6 fL (9.4-12.3); Monocytes Absolute Auto 0.5 X10*3/uL (0.1-1.2); Monocytes Percent Auto 7.6 % (2-11); Neutrophils Percent Auto 58.8 % (45-73); Platelet Count 223 X10*3/uL (160-400); Red Blood Count 4.63 X10*6/uL (4.20-5.50); Red Cell Distribution Width 12.2 % (11.0-16.0); White Blood Count 6.8 X10*3/uL (4.8-10.8)
[2022-04-20 10:09] LABS: Estimated Average Glucose 105 mg/dL; Hemoglobin A1c % 5.3 %
[2022-04-20 10:11] LABS: Alanine Aminotransferase 14 U/L (0-31); Albumin Level 4.3 g/dL (3.5-5.0); Alkaline Phosphatase 75 U/L (39-117); Anion Gap 13 (12-20); Aspartate Amino Transferase 17 U/L (5-31); Bilirubin Total 0.4 mg/dL (0.0-1.0); Blood Urea Nitrogen 17 mg/dL (9-16); C Reactive Protein 0.37 mg/dL (< or = 0.50); Calcium 9.6 mg/dL (8.4-10.2); Carbon Dioxide 28 mmol/L (22-29); Chloride 106 mmol/L (96-108); Cholesterol 206 mg/dL; Estimated Glomerular Filt Rate > 60; Glucose Random 88 mg/dL (60-115); HDL Cholesterol 98 mg/dL; Iron 102 mcg/dL (30-160); LDL Cholesterol Calculated 96 mg/dl; Percent Iron Saturation 31 % (15-50); Potassium 4.5 mmol/L (3.3-5.1); Sodium 142 mmol/L (135-145); Total Iron Binding Capacity 332 mcg/dL (228-428); Total Protein 7.1 g/dL (6.5-8.0); Triglycerides 62 mg/dL; Unsaturated Iron Binding 230 ug/dL
[2022-04-20 10:40] LABS: Ferritin 176 ng/mL (10-250); TSH reflex Free T4 0.67 uIU/mL (0.32-4.0); Vitamin D 25-OH Total 26.3 ng/mL (>30)
[2022-04-20 11:07] LABS: Folate 15.5 ng/mL (> or = 4.0); Vitamin B12 409 pg/mL (200-900)
[2022-04-20 11:22] LABS: Insulin 10 uU/mL (2-29)
--- NOTE | 2022-04-20 13:45 | ECG_ITS ---
Test Reason : OBESITY Blood Pressure : / mmHG Vent. Rate : 061 BPM Atrial Rate : 061 BPM P-R Int : 162 ms QRS Dur : 072 ms QT Int : 402 ms P-R-T Axes : 055 042 035 degrees QTc Int : 404 ms Normal sinus rhythm Normal ECG When compared with ECG of 26-JUL-2021 11:10, No significant change was found Referred By: Aris Constantino Electronically Signed By:DONITA ROJAS
[2022-04-21 13:22] LABS: Calcium (PTHI) 9.6 mg/dL (8.6-10.4); PTHI 71 pg/mL (16-77)
[2022-04-24 06:06] LABS: Vitamin B1 16 nmol/L (8-30)
[2022-04-25 06:11] LABS: Zinc 72 mcg/dL (60-130)
[2022-04-26 17:33] LABS: Vitamin A 50 mcg/dL (38-98)
== END 2022-04-20 08:54 | disposition home or self-care (01) ==
LOC: HO.XRAY 08:53
PROVIDERS: PCP Internal Medicine; Visit Provider Physician Assistant Surgical
DX: E66.01 Morbid (severe) obesity due to excess calories (principal)
CPT/HCPCS: 36415; 71046; 80053; 80061; 82306; 82607; 82728; 82746; 83036; 83525; 83540; 83970; 84425; 84443; 84590; 84630; 85025; 86140; 93005

== ENCOUNTER 2022-05-04 | Outpatient (REF) | payer MEDICAID, SELFPAY ==
[2022-05-06 12:21] LABS: H Pylori Breath Test Negative (Negative)
== END 2022-05-04 00:01 | disposition home or self-care (01) ==
LOC: HO.LNP
PROVIDERS: Visit Provider Physician Assistant Surgical
DX: E66.01 Morbid (severe) obesity due to excess calories (principal); Z11.0 Encounter for screening for intestinal infectious diseases
CPT/HCPCS: 83013

== ENCOUNTER → 2022-05-04 15:59 | Outpatient (BNVA) | payer MEDICAID, SELFPAY | PROVIDERS: PCP Internal Medicine; Visit Provider Physician Assistant Surgical | DX: E66.01 Morbid (severe) obesity due to excess calories (principal); Z68.41 Body mass index [BMI] 40.0-44.9, adult | CPT/HCPCS: 83013; 99211; 99212 ==

== ENCOUNTER 2022-05-05 14:59 | Outpatient (REF) | payer MEDICAID, SELFPAY | END 2022-05-05 15:00 | disposition home or self-care (01) | LOC: HO.LNP 14:59 | PROVIDERS: Visit Provider Physician Assistant Surgical | DX: Z13.89 Encounter for screening for other disorder (principal) ==

== ENCOUNTER → 2022-05-11 13:23 | Outpatient (BNVA) | payer MEDICAID, SELFPAY | PROVIDERS: PCP Internal Medicine; Referring Provider Physician Assistant Surgical; Visit Provider Dietitian, Registered | DX: E66.01 Morbid (severe) obesity due to excess calories (principal) | CPT/HCPCS: 97802 ==

== ENCOUNTER → 2022-05-30 15:47 | Outpatient (BNVA) | payer MEDICAID, SELFPAY | PROVIDERS: PCP Internal Medicine; Visit Provider Physician Assistant Surgical | DX: E66.01 Morbid (severe) obesity due to excess calories (principal); Z68.41 Body mass index [BMI] 40.0-44.9, adult | CPT/HCPCS: 99212 ==

== ENCOUNTER 2022-06-01 07:59 | Outpatient (REF) | payer MEDICAID, SELFPAY ==
--- NOTE | ~2022-06-01 | US_ITS ---
EXAMINATION: US COMPLETE ABDOMEN WITH LIVER ELASTOGRAPHY CLINICAL INFORMATION: Morbid to severe obesity. COMPARISON: None. TECHNIQUE: Real-time imaging of the abdominal viscera. Noninvasive ultrasound liver fibrosis assessment is performed using Zainab ElastPQ point quantification shear wave elastography (2D-SWE) with a C5-2 MHz transducer. Multiple elastography samples are obtained. FINDINGS: PANCREAS: The visualized pancreatic head and body are normal in appearance. The tail of the pancreas is obscured from visualization by the overlying bowel gas. ABDOMINAL AORTA: The proximal, middle, and distal aortic segments are normal in caliber. INFERIOR VENA CAVA: Visualized portions are normal. LIVER: The liver demonstrates normal size, contour and increased echogenicity. No focal lesion or intrahepatic biliary duct dilatation. The right lobe measures 17.5 cm in length. The left lobe measures 12.3 cm in length. Portal flow is hepatopedal. Shear wave liver elastography median stiffness is 1.96 m/s (reference: normal median stiffness is 1.3 m/s or less). IQR/median stiffness to assess sampling precision is 0.12 (reference: good quality data set is IQR/median stiffness of 0.15 or less). GALLBLADDER: Normal. The gallbladder is physiologically distended without evidence of stones, sludge, polyps, wall thickening or pericholecystic fluid. COMMON BILE DUCT: Normal in caliber measuring 0.7 cm in diameter. RIGHT KIDNEY: Normal. No hydronephrosis. No renal calculi or focal parenchymal lesions. The kidney measures 10.9 cm in maximum dimension. LEFT KIDNEY: Normal. No hydronephrosis. No renal calculi or focal parenchymal lesions. The kidney measures 12.5 cm in maximum dimension. SPLEEN: Normal. The spleen measures 9.7 cm in maximum dimension. FREE FLUID: None. US/US abdomen comp w elastography IMPRESSION: 1. Diffuse hepatic steatosis without focal lesion. Rest of the abdominal ultrasound unremarkable. 2. Liver elastography: Median liver stiffness measures 1.96 m/s corresponds to cACLD (suggestive). REFERENCE: Society of Radiologists in Ultrasound Liver Stiffness Thresholds (2020): LIVER STIFFNESS THRESHOLDS: *Liver Stiffness equal or less than 1.3 m/s: High probability of being normal. *Liver Stiffness less than 1.7 m/s: In the absence of other known clinical signs, rules out compensated advanced chronic liver disease. *Liver Stiffness 1.7-2.1 m/s: Suggestive of compensated advanced chronic liver disease but need further test for confirmation. *Liver Stiffness over 2.1 m/s: Rules in compensated advanced chronic liver disease. *Liver Stiffness over 2.4 m/s: Suggestive of clinically significant portal hypertension. QUALITY OF DATA SET: *IQR/Median value equal or less than 0.15 implies a quality data set. *IQR/Median value over 0.15 implies a poor quality data set. SIGNIFICANT CHANGE FROM PRIOR EXAM: Significant change if liver stiffness measurement is 10% or greater from prior exam. OTHER CONSIDERATIONS: The stage of liver fibrosis may be overestimated in the setting of acute hepatitis, liver inflammation, elevated liver function tests, hepatic vascular congestion, obstructive cholestasis, non-fasting state, and infiltrative diseases such as amyloidosis and lymphoma. In some patients with NAFLD, the liver stiffness thresholds for compensated advanced chronic liver disease may be lower. In causes other than viral hepatitis and NAFLD, liver stiffness thresholds are not well established.
--- NOTE | ~2022-06-01 | MM_ITS ---
EXAMINATION: MM SCREENING DIGITAL BREAST TOMOSYNTHESIS, BILATERAL CLINICAL INFORMATION: Screening. Asymptomatic. The lifetime risk of breast cancer based on the Tyrer-Cuzick Model is 9.8%. COMPARISON: Mammography: April 04, 2021 and studies dating back to August 24, 2017 TECHNIQUE: Digital breast tomosynthesis is performed in both the craniocaudal and mediolateral oblique views along with computer-aided detection (CAD). Synthesized 2D images are generated from the tomosynthesis. FINDINGS: The breasts are almost entirely fatty (ACR BI-RADS breast composition Category a). There are no significant masses, abnormal calcifications, or other abnormalities. MM/MM tomosynthesis screening BI IMPRESSION: No significant changes from prior exam. ASSESSMENT: BI-RADS 1: Negative RECOMMENDATION: Routine annual mammography screening. This patient's information was entered into a reminder system with a target due date for their next mammogram.
--- NOTE | ~2022-06-01 | FL_ITS ---
PROCEDURE: XR FLUOROSCOPY UPPER GI WITH AIR CLINICAL INFORMATION: Morbid to severe obesity due to excess calories. COMPARISON: None TECHNIQUE: Routine upper GI air-contrast study was performed in upright and lying position. FINDINGS: Following oral administration of thick barium and effervescent granules there is normal propagation of bolus from the oral cavity through the pharynx, esophagus into stomach without any evidence of obstruction, narrowing or stricture. The course, caliber and peristalsis of the stomach, duodenal bulb and the sweep is normal. The mucosal pattern of the stomach, duodenum is normal. No gastroesophageal reflux or hiatal hernia seen. Mild increased secretions are noted. There is evidence of previous cholecystectomy. FLUOROSCOPY TIME: 1.8 minutes DOSE AREA PRODUCT: 22.168 uGy-m2 (microgray-meter squared) FL/FL upper GI w air IMPRESSION: Increased gastric secretions likely hyperacidity. Otherwise unremarkable upper GI exam.
== END 2022-06-01 08:00 | disposition home or self-care (01) ==
LOC: HO.US 07:59
PROVIDERS: Visit Provider Pediatrics
DX: E66.01 Morbid (severe) obesity due to excess calories (principal); Z12.31 Encounter for screening mammogram for malignant neoplasm of breast
CPT/HCPCS: 74246; 76705; 76981; 77063; 77067

== ENCOUNTER 2022-06-01 10:31 | Outpatient (REF) | payer MEDICAID, SELFPAY | END 2022-06-01 10:32 | disposition home or self-care (01) | LOC: HO.MAMMO 10:31 | PROVIDERS: PCP Internal Medicine; Visit Provider Obstetrics & Gynecology | DX: Z13.89 Encounter for screening for other disorder (principal) ==

== ENCOUNTER → 2022-06-15 13:15 | Outpatient (BNVA) | payer MEDICAID, SELFPAY | PROVIDERS: PCP Internal Medicine; Visit Provider Dietitian, Registered | DX: E66.9 Obesity, unspecified (principal) | CPT/HCPCS: 97803 ==

== ENCOUNTER → 2022-07-04 16:22 | Outpatient (BNVA) | payer MEDICAID, SELFPAY | PROVIDERS: PCP Internal Medicine; Visit Provider Physician Assistant Surgical | DX: E66.01 Morbid (severe) obesity due to excess calories (principal); Z68.41 Body mass index [BMI] 40.0-44.9, adult | CPT/HCPCS: 99212 ==

== ENCOUNTER → 2022-07-25 16:07 | Outpatient (BNVA) | payer MEDICAID, SELFPAY | PROVIDERS: PCP Internal Medicine; Visit Provider Dietitian, Registered | DX: E66.01 Morbid (severe) obesity due to excess calories (principal) | CPT/HCPCS: 97803 ==

== ENCOUNTER 2022-10-11 10:50 | Outpatient (REF) | payer MEDICAID, SELFPAY ==
--- NOTE | ~2022-10-11 | XR_ITS ---
EXAMINATION: XR KNEE, RIGHT XR KNEE, LEFT CLINICAL INDICATION: Acute knee pain. COMPARISON: Previous dated 08/18/2020 and a 2018 study. TECHNIQUE: 4 views of left knee, 4 views of the right knee. FINDINGS: LEFT KNEE: There is [id number] patellofemoral spurring. There is also lateralization of the patella. A small amount joint fluid is present. Degenerative change with mild loss of joint space in the lateral compartment and marginal compartment spurring. There is also mild spurring of the tibial spines. RIGHT KNEE: There is again pcix-hl-[id number] patellofemoral spurring. Some joint fluid is present. There is lateral compartment marginal spurring mild loss of lateral joint space. There is tibial spine spurring. There is lateralization of the patella, increased from 2018. XR/XR knee LT 4V IMPRESSION: Moderate degenerative change in the knees with lateralization of the patellas on right greater than left.
--- NOTE | ~2022-10-11 | XR_ITS ---
EXAMINATION: XR KNEE, RIGHT XR KNEE, LEFT CLINICAL INDICATION: Acute knee pain. COMPARISON: Previous dated 08/18/2020 and a 2018 study. TECHNIQUE: 4 views of left knee, 4 views of the right knee. FINDINGS: LEFT KNEE: There is [id number]-[id number] patellofemoral spurring. There is also lateralization of the patella. A small amount joint fluid is present. Degenerative change with mild loss of joint space in the lateral compartment and marginal compartment spurring. There is also mild spurring of the tibial spines. RIGHT KNEE: There is again soio-cj-xjwgpenh patellofemoral spurring. Some joint fluid is present. There is lateral compartment marginal spurring mild loss of lateral joint space. There is tibial spine spurring. There is lateralization of the patella, increased from 2018. XR/XR knee RT 4V IMPRESSION: Moderate degenerative change in the knees with lateralization of the patellas on right greater than left.
== END 2022-10-11 10:51 | disposition home or self-care (01) ==
LOC: HO.XRAY 10:50
PROVIDERS: PCP Internal Medicine; Visit Provider Emergency Medicine
DX: M25.562 Pain in left knee (principal); M25.561 Pain in right knee
CPT/HCPCS: 73564

== ENCOUNTER → 2022-11-24 09:53 | Outpatient (BNVA) | payer MEDICAID, SELFPAY | PROVIDERS: PCP Internal Medicine; Visit Provider Surgery | DX: R22.2 Localized swelling, mass and lump, trunk (principal); R57.0 Cardiogenic shock | CPT/HCPCS: 99202 ==

== ENCOUNTER 2022-12-01 20:07 | Emergency (ER) | payer MEDICAID, SELFPAY ==
--- NOTE | ~2022-12-01 | XR_ITS ---
EXAMINATION: XR CHEST CLINICAL INFORMATION: Chest COMPARISON: None available. TECHNIQUE: 2 views of the chest were obtained. FINDINGS: There are low lung volumes. Elevated left hemidiaphragm and opacity at the left lung base are not significantly changed in appearance. The right lung is clear. There are no gross pleural effusions. The cardiomediastinal silhouette is stable. XR/XR chest 2V IMPRESSION: No acute disease or interval change since 04/20/2022.
[2022-12-01 20:09] VITALS: BP 119/72; PULSE 71; RESP 18; TEMP 36; O2SAT 98; BMI 28.2
--- NOTE | 2022-12-01 20:13 | ED_ITS ---
HPI - Chest Pain General Chief Complaint: Chest Pain Stated Complaint: Chest pain Time Seen by Provider: 12/01/22 21:20 History of Present Illness HPI narrative: Patient is a 52-year-old female presents today with having chest pain. The chest pain is over the left side. Patient has a history of a lipoma over the right chest. No history of diabetes. Positive history smoking. No history of OK. No history of high blood pressure. No history of stroke. Patient from home. No leg swelling. No history of blood clots in the past. Not on control. The pain was constant not associated with shortness of breath it was relieved with aspirin. Then it came back at approximately 19:00. Has been constant since. Related Data Home Medications Medication Instructions Recorded Confirmed albuterol sulfate 90 mcg/actuation 2 puff inhalation Q6H PRN Wheezing 07/29/20 11/24/22 aerosol inhaler fluticasone propionate 110 1 puff inhalation Q12H 07/29/20 11/24/22 mcg/actuation HFA aerosol inhaler (Flovent HFA) Previous Rx's Medication Instructions Recorded albuterol sulfate 2.5 mg/3 mL 2.5 mg (3 mL) inhalation Q4-6H PRN 04/14/21 (0.083 %) solution for nebulization shortness of breath or wheezing #90 mL albuterol sulfate 90 mcg/actuation 2 puff inhalation Q4-6H PRN 04/14/21 aerosol inhaler (ProAir HFA) Wheezing #8.5 grams albuterol sulfate 2.5 mg/3 mL 2.5 mg (3 mL) inhalation Q4-6H PRN 03/14/22 (0.083 %) solution for nebulization shortness of breath or wheezing #75 mL albuterol sulfate 90 mcg/actuation 2 puff inhalation Q4-6H PRN 03/14/22 aerosol inhaler shortness of breath or wheezing #8.5 grams cholecalciferol (vitamin D3) 125 125 mcg PO DAILY #30 caps 10/02/22 mcg (5,000 unit) capsule cyanocobalamin (vitamin B-12) 1,000 mcg sublingual DAILY #90 tabs 10/02/22 1,000 mcg sublingual tablet Allergies Allergy/AdvReac Type Severity Reaction Status Date / Time No Known Allergies Allergy Verified 11/24/22 10:33 [No Known Allergies*] Review of Systems Review of Systems: Positive chest pain Yes all other systems are reviewed and are negative [facility] Past Medical History Attestation statement: The following information was validated with the patient. Medical History Asthma Hypovitaminosis D Surgical History History of bilateral tubal ligation History of Hx of cholecystectomy Family History Family History Mother Hypertension Diabetes Father Cancer Daughter No problems noted. 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 Oriented X3. No acute distress. Eyes: Pupils equal, round and reactive to light. ENT: Pharynx normal. Neck: Normal inspection. Neck supple. No lymph nodes noted. No crepitus CVS: Normal heart rate and rhythm. Pulses normal. Normal S1 and S2 Respiratory: No respiratory distress. Breath sounds normal. No Wheezing. No rales Abdomen: Soft and nontender. No rigidity. No distention. good BS x4 Skin: Skin warm and dry. Normal skin color. Normal skin turgor. Extremities: No lower extremity edema. Neurovascular intact to all extremities. No Lacerations. No Rash Neuro: Oriented X 3. No motor deficit. No sensory deficit. Moving all extermities. No slurred speech Course Course Course Narrative: RME performed by Cecile Berger PA-C. Patient is a 52 year old assigned female at presenting to the emergency department with chest pain that radiates into her arm. Patient states that her family has a history of cardiac disease. Labs and imaging ordered. Patient placed back in the waiting room pending room availability and results. Medical Decision Making Medical Decision Making [facility] Narrative: Patient's chest pain is on the left side pinpoint. Constant. Positive history of smoking. Patient has a history of a lipoma in the chest. Being followed on an outpatient basis. No history of blood clots. No leg swelling. She is from home. No history of diabetes. Chest x-ray was negative for any acute evidence of pneumonia pneumothorax. Patient's pain atypical for ACS. Does have history of smoking and history of being overweight. Patient's troponin is negative x2 sets. Her heart score is a 3. Will have patient follow-up on an outpatient basis. In stable condition. Differential Diagnosis Differential Diagnoses: The differential diagnosis associated with the presentation includes ACS, pneumonia, PE, pneumothorax Lab Data [facility] Lab Attestation statement: I reviewed the patient's lab results. 12/01/22 20:21 12/01/22 20:21 Labs: Lab Results 12/01/22 12/01/22 12/01/22 Range/Units 20:21 20:21 20:21 WBC 8.6 (4.8-10.8) X10*3/uL RBC 4.27 (4.20-5.50) X10*6/uL Hgb 13.4 (12.0-16.0) g/dl Hct 40.2 (37.0-47.0) % MCV 94.1 (80.0-98.0) fL MCH 31.4 (27.0-33.0) pg MCHC 33.3 (31.0-35.0) g/dl RDW 12.3 (11.0-16.0) % Plt Count 229 (160-400) X10*3/uL MPV 10.3 (9.4-12.3) fL Immature Gran % (Auto) 0.4 (0.0-0.4) % Neut % (Auto) 66.5 (45-73) % Lymph % (Auto) 23.9 (20-40) % [place] % (Auto) 6.8 (2-11) % Eos % (Auto) 2.0 (0-4) % Baso % (Auto) 0.4 (0-2) % Lymph # (Auto) 2.0 (1.2-4.9) X10*3/uL [place] # (Auto) 0.6 (0.1-1.2) X10*3/uL Eos # (Auto) 0.2 (0.0-0.4) X10*3/uL Baso # (Auto) 0.0 (0.0-0.2) X10*3/uL Abs Immat Gran (auto) 0.03 (0.00-0.03) X10*3/uL Absolute Neuts (auto) 5.7 (2.0-8.3) x10*3/uL Absolute Nucleated RBC 0.000 (0.0-0.012) X10*3/uL Nucleated RBC % (auto) 0.0 (0.0-0.2) /100WBC Sodium 142 (135-145) mmol/L Potassium 4.1 (3.3-5.1) mmol/L Chloride 109 H (96-108) mmol/L Carbon Dioxide 26 (22-29) mmol/L Anion Gap 11 L (12-20) BUN 17 H (9-16) mg/dL Creatinine 0.93 (0.5-1.4) mg/dL Estim Creat Clear Calc 77.7 Estimated GFR > 60 Random Glucose 97 (60-115) mg/dL Calcium 9.5 (8.4-10.2) mg/dL Magnesium 1.7 (1.6-2.6) mg/dL Total Bilirubin 0.2 (0.0-1.0) mg/dL AST 16 (5-31) U/L ALT 20 (0-31) U/L Alkaline Phosphatase 101 (39-117) U/L Troponin I High Sens < 2.7 (<3.5-17.0) ng/L Total Protein 6.7 (6.5-8.0) g/dL Albumin 4.0 (3.5-5.0) g/dL 12/01/22 Range/Units 23:17 WBC (4.8-10.8) X10*3/uL RBC (4.20-5.50) X10*6/uL Hgb (12.0-16.0) g/dl Hct (37.0-47.0) % MCV (80.0-98.0) fL MCH (27.0-33.0) pg MCHC (31.0-35.0) g/dl RDW (11.0-16.0) % Plt Count (160-400) X10*3/uL MPV (9.4-12.3) fL Immature Gran % (Auto) (0.0-0.4) % Neut % (Auto) (45-73) % Lymph % (Auto) (20-40) % [place] % (Auto) (2-11) % Eos % (Auto) (0-4) % Baso % (Auto) (0-2) % Lymph # (Auto) (1.2-4.9) X10*3/uL [place] # (Auto) (0.1-1.2) X10*3/uL Eos # (Auto) (0.0-0.4) X10*3/uL Baso # (Auto) (0.0-0.2) X10*3/uL Abs Immat Gran (auto) (0.00-0.03) X10*3/uL Absolute Neuts (auto) (2.0-8.3) x10*3/uL Absolute Nucleated RBC (0.0-0.012) X10*3/uL Nucleated RBC % (auto) (0.0-0.2) /100WBC Sodium (135-145) mmol/L Potassium (3.3-5.1) mmol/L Chloride (96-108) mmol/L Carbon Dioxide (22-29) mmol/L Anion Gap (12-20) BUN (9-16) mg/dL Creatinine (0.5-1.4) mg/dL Estim Creat Clear Calc Estimated GFR Random Glucose (60-115) mg/dL Calcium (8.4-10.2) mg/dL Magnesium (1.6-2.6) mg/dL Total Bilirubin (0.0-1.0) mg/dL AST (5-31) U/L ALT (0-31) U/L Alkaline Phosphatase (39-117) U/L Troponin I High Sens < 2.7 (<3.5-17.0) ng/L Total Protein (6.5-8.0) g/dL Albumin (3.5-5.0) g/dL Independent Interpretation I performed an independent interpretation of an: EKG and Plain X-Ray Interpretation: Sinus pattern heart rate is 70 [place] QRS QTC within normal limits is no acute ST segment elevation. I personally reviewed patient's chest x-ray is grossly negative for any acute evidence of pneumonia pneumothorax External Record Review External record reviewed: Office record Chronic Conditions Smoking Discharge Plan Discharge Clinical Impression: Chest pain Patient Disposition: Home, Self-Care Instructions: Chest Pain (ED) Prescriptions: No Action cholecalciferol (vitamin D3) 125 mcg (5,000 unit) capsule 125 mcg PO DAILY Qty: 30 3RF cyanocobalamin (vitamin B-12) 1,000 mcg tablet, sublingual 1,000 mcg sublingual DAILY Qty: 90 3RF albuterol sulfate [ProAir HFA] 90 mcg/actuation HFA aerosol inhaler 2 puff inhalation Q4-6H PRN (Reason: Wheezing) Qty: 8.5 0RF albuterol sulfate 2.5 mg /3 mL (0.083 %) solution for nebulization 2.5 mg inhalation Q4-6H PRN (Reason: shortness of breath or wheezing) Qty: 90 0RF albuterol sulfate 2.5 mg /3 mL (0.083 %) solution for nebulization 2.5 mg inhalation Q4-6H PRN (Reason: shortness of breath or wheezing) Qty: 75 0RF albuterol sulfate 90 mcg/actuation HFA aerosol inhaler 2 puff inhalation Q4-6H PRN (Reason: shortness of breath or wheezing) Qty: 8.5 0RF albuterol sulfate 90 mcg/actuation HFA aerosol inhaler 2 puff inhalation Q6H PRN (Reason: Wheezing) Flovent HFA 110 mcg/actuation HFA aerosol inhaler 1 puff inhalation Q12H Referrals: Judy Galvan MD [Primary Care Provider] - 12/04/22
--- NOTE | 2022-12-01 20:14 | ECG_ITS ---
Test Reason : CP Blood Pressure : / mmHG Vent. Rate : 068 BPM Atrial Rate : 068 BPM P-R Int : 164 ms QRS Dur : 072 ms QT Int : 384 ms P-R-T Axes : 045 030 025 degrees QTc Int : 408 ms Normal sinus rhythm Normal ECG When compared with ECG of 20-APR-2022 13:47, No significant change was found Referred By: Cecile Berger Electronically Signed By:Sathya Paiz
[2022-12-01 20:40] LABS: Basophils Percent Auto 0.4 % (0-2); Eosinophils Absolute Auto 0.2 X10*3/uL (0.0-0.4); Hematocrit 40.2 % (37.0-47.0); Hemoglobin 13.4 g/dl (12.0-16.0); Imm Gran Abs Auto 0.03 X10*3/uL (0.00-0.03); Imm Gran Pct Auto 0.4 % (0.0-0.4); Lymphocytes Percent Auto 23.9 % (20-40); MANUAL DIFF FLAG NO; Mean Corpuscular HGB Conc 33.3 g/dl (31.0-35.0); Mean Corpuscular Hemoglobin 31.4 pg (27.0-33.0); Mean Corpuscular Volume 94.1 fL (80.0-98.0); Mean Platelet Volume 10.3 fL (9.4-12.3); Monocytes Absolute Auto 0.6 X10*3/uL (0.1-1.2); Monocytes Percent Auto 6.8 % (2-11); Neutrophils Absolute Auto 5.7 x10*3/uL (2.0-8.3); Neutrophils Percent Auto 66.5 % (45-73); Platelet Count 229 X10*3/uL (160-400); Red Blood Count 4.27 X10*6/uL (4.20-5.50); Red Cell Distribution Width 12.3 % (11.0-16.0); White Blood Count 8.6 X10*3/uL (4.8-10.8)
[2022-12-01 20:58] LABS: Alanine Aminotransferase 20 U/L (0-31); Alkaline Phosphatase 101 U/L (39-117); Anion Gap 11 (12-20); Aspartate Amino Transferase 16 U/L (5-31); Bilirubin Total 0.2 mg/dL (0.0-1.0); Blood Urea Nitrogen 17 mg/dL (9-16); Calcium 9.5 mg/dL (8.4-10.2); Carbon Dioxide 26 mmol/L (22-29); Chloride 109 mmol/L (96-108); Creatinine Clr Calc Pharmacy 77.7; Estimated Glomerular Filt Rate > 60; Glucose Random 97 mg/dL (60-115); Magnesium 1.7 mg/dL (1.6-2.6); Potassium 4.1 mmol/L (3.3-5.1); Sodium 142 mmol/L (135-145); Total Protein 6.7 g/dL (6.5-8.0)
[2022-12-01 21:05] LABS: Troponin-I High Sensitivity < 2.7 ng/L (<3.5-17.0)
[2022-12-01 21:25] VITALS: BP 113/64; PULSE 67; RESP 16; TEMP 36.8; O2SAT 99
--- NOTE | 2022-12-01 21:26 | MHC.EDTECH ---
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
[2022-12-01 23:14] VITALS: BP 120/72; PULSE 64; RESP 16; TEMP 36.5; O2SAT 98
--- NOTE | 2022-12-01 23:18 | MHC.EDTECH ---
PATIENT VITALS SIGN TAKEN AND REPEATED TROP DRAWN AND SENT TO LAB .
[2022-12-01 23:52] LABS: Troponin-I High Sensitivity < 2.7 ng/L (<3.5-17.0)
[2022-12-02 00:30] VITALS: BP 119/75; PULSE 67; RESP 18; TEMP 36.6; O2SAT 97
== END 2022-12-02 00:32 | disposition home or self-care (01) ==
PROVIDERS: Physician Assistant Medical; Emergency Provider Emergency Medicine Emergency Medical Services; PCP Internal Medicine
DX: R07.89 Other chest pain (principal); Z79.899 Other long term (current) drug therapy; Z87.891 Personal history of nicotine dependence
CPT/HCPCS: 36415; 71046; 80053; 83735; 84484; 85025; 93005; 99283; 99284

== ENCOUNTER 2022-12-13 16:37 | Outpatient (REF) | payer MEDICAID, SELFPAY ==
--- NOTE | ~2022-12-13 | MR_ITS ---
EXAMINATION: MR CHEST WITHOUT AND WITH CONTRAST CLINICAL INFORMATION: Swelling, mass and lump of the trunk. Patient history indicates prior CT scan showing mass and worsening pain when recumbent COMPARISON: Abdominal and pelvic CT October [address] April 2022 TECHNIQUE: Sagittal axial and coronal sequences through the chest with and without contrast. Patient received 10 mL intravenous Gadavist contrast. FINDINGS: There is a large fatty mass at the left lung base. This abuts the left heart border. No diaphragmatic hernia is seen. This measures 15 x 11 x 10.5 cm in dimension. This has a single nonenhancing septation. No solid component. This probably represents a large lipoma. This abuts the left heart border and distal esophagus and descending thoracic aorta. This does not appear appreciably changed in size from October [address] scan. The lungs are clear. Normal heart size. No pericardial effusion. No hilar or mediastinal lymphadenopathy. Normal caliber thoracic aorta. No pleural effusion or pleural thickening. No chest wall mass. Images through the upper abdomen are unremarkable. No acute bone abnormality. Mild degenerative disc changes of the spine. MR/MR chest wo/w con IMPRESSION: Large fatty mass at the left lung base measuring 15 x 10 x 11 cm. This has a single thin nonenhancing septation. This does not appear appreciably changed in size from October [address] scan. This does not appear to response to a diaphragmatic hernia and probably represents a large lipoma.
== END 2022-12-13 16:38 | disposition home or self-care (01) ==
LOC: HO.MRI 16:37
PROVIDERS: PCP Internal Medicine; Visit Provider Surgery
DX: R22.2 Localized swelling, mass and lump, trunk (principal)
CPT/HCPCS: 71552; A9585

== ENCOUNTER → 2022-12-21 10:08 | Outpatient (BNVA) | payer MEDICAID, SELFPAY | PROVIDERS: PCP Internal Medicine; Visit Provider Internal Medicine | DX: R07.2 Precordial pain (principal); R22.2 Localized swelling, mass and lump, trunk | CPT/HCPCS: 99202 ==

== ENCOUNTER → 2022-12-22 14:09 | Outpatient (BNVA) | payer MEDICAID, SELFPAY | PROVIDERS: PCP Internal Medicine; Visit Provider Surgery | DX: R22.2 Localized swelling, mass and lump, trunk (principal) | CPT/HCPCS: 99212 ==

== ENCOUNTER 2022-12-26 12:22 | Emergency (ER) | payer MEDICAID, SELFPAY ==
--- NOTE | ~2022-12-26 | CT_ITS ---
Examination: CT brain without contrast. Chest x-ray. CLINICAL INDICATION: Chest pain, dizziness and left upper extremity weakness. COMPARISON: Chest 12/01/[address] brain 07/26/2021. TECHNIQUE: 5 minutes thin axial and reformatted 2 mm thin sagittal and coronal images of brain were obtained. DLP 698. This CT examination was performed using dose optimization technique as appropriate, variously including the following: Automated exposure control Adjustment of MA and/or KV according to patient size(this includes techniques or standardized protocols for targeted exams where dose is matched to indication/reason for exam; extremities or head. Use of iterative reconstruction techniques. Chest one view. FINDINGS: Chest: The lungs are well-expanded with platelike atelectasis in lingula and patchy haziness in the left lung base likely infiltrate or atelectasis. Rest of lungs are clear. Heart size and pulmonary vascularity is normal. No gross bony abnormality seen. Brain: There is no acute intra-axial, extra-axial bleed, masses or midline shift. The lateral ventricles are symmetrical in size and configuration without enlargement. The dowling to white matter differentiation is maintained normal. Bone windows reveal no calvarial abnormality. Bilateral paranasal sinuses and mastoid air cells are well-aerated. CT/CT head/brain wo IV con IMPRESSION: 1. Lingular and left lower lobe infiltrate or atelectasis. 2. There is no acute intracranial process seen.
--- NOTE | 2022-12-26 12:24 | ECG_ITS ---
Test Reason : cp Blood Pressure : / mmHG Vent. Rate : 069 BPM Atrial Rate : 069 BPM P-R Int : 166 ms QRS Dur : 074 ms QT Int : 394 ms P-R-T Axes : 042 022 024 degrees QTc Int : 422 ms Normal sinus rhythm Normal ECG When compared with ECG of 01-DEC-2022 20:14, No significant change was found Referred By: Emely Dee Electronically Signed By:CALLUM DEAL MD
[2022-12-26 12:33] VITALS: BP 117/72; PULSE 69; RESP 16; TEMP 36.2; O2SAT 97; BMI 46.4
--- NOTE | 2022-12-26 12:41 | ED_ITS ---
HPI - Chest Pain General Chief Complaint: Chest Pain Stated Complaint: Chest Left Side Pain Time Seen by Provider: 12/26/22 13:13 Source: patient Mode of arrival: ambulatory Limitations: language barrier History of Present Illness HPI narrative: HIstory from certified court interpreter. last night her entire left side of her body hurt. She denies trauma, no fever, no weakness. She feels that maybe her hand might be weak but only the hand. She feels like her tendon in her hand is hurting. patient was lying down when she got the pain Risk Factors Coronary artery disease risk factors: hyperlipidemia and hypertension Related Data Home Medications Medication Instructions Recorded Confirmed budesonide-formoterol HFA 80 2 puff inhalation 12/21/22 12/22/22 mcg-4.5 mcg/actuation aerosol inhaler (Symbicort) Previous Rx's Medication Instructions Recorded naproxen 500 mg tablet (Naprosyn) 500 mg PO BID #20 tabs 12/26/22 Allergies Allergy/AdvReac Type Severity Reaction Status Date / Time No Known Allergies Allergy Verified 12/26/22 12:33 [No Known Allergies*] Review of Systems Review of Systems: Yes all other systems are reviewed and are negative Musculoskeletal: Comments: left side pain Neurologic: Denies Sensory deficit (Neuro) [facility] Past Medical History Medical History Asthma History of COVID-19 Hypovitaminosis D Morbid obesity Surgical History History of bilateral tubal ligation History of History of cholecystectomy History of colonoscopy Family History Family History Mother Hypertension Diabetes Father Cancer Daughter No problems noted. 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 Sexual orientation: Straight/Heterosexual Gender identity: Female Physical Exam Vital Signs: Vital Signs: Last Vital Signs Temp 98.6 F 12/26/22 13:26 Pulse 64 12/26/22 14:25 Resp 14 12/26/22 14:25 BP 124/69 12/26/22 14:25 Pulse Ox 97 12/26/22 14:25 O2 Del Method Room Air 12/26/22 14:25 BMI result Body Mass Index 46.4 Const: General: healthy appearing Nutritional Appearance: obese Orientation/consciousness: oriented to person and patient oriented x3 Limitations: no limitations and language barrier HEENT: Head: Yes normal to inspection Ears: external ears normal General nose exam: Normal external nose present Mouth: Normal oral and palatal mucosa present and oropharynx normal Throat: Yes posterior oropharynx normal Eyes: General: appearance normal, both eyes and all related structures Neck: Other: supple Neck: Yes normal visual inspection Chest: Chest palpation & inspection: normal inspection of the chest Resp: Auscultation: clear to auscultation bilaterally Cardio: Jugular venous distension: no JVD Rate: regular rate Rhythm: regular rhythm Heart sounds: S1 normal heart sound present and S2 normal heart sound present GI: Inspection: Yes normal to inspection Palpation (GI): Soft to palpation, nontender and No hepatosplenomegaly present Auscultation: normal bowel sounds : General: Yes no CVA tenderness Back/Spine/Pelvis: Back: no CVA tenderness Skin: General skin exam: no rashes or lesions noted Neuro: General: oriented to person and patient oriented x3 Cranial nerves: Yes CN's II-XII intact bilaterally Motor exam (neuro): 5/5 motor strength present throughout Sensory Exam: No Sensory deficit (Neuro) Extrem: General: Yes normal to inspection Psych: Appearance: grossly normal Course Course Course Narrative: RME: 52-year-old female with a past medical history of asthma, obesity, fatty liver, DUB, complaining of left-sided head pain radiating to left arm/shoulder and chest since last night with associated left hand weakness. Also reports mild SOB. Reports felt mildly dizzy this morning, resolved at present. 4/5 LUE strength noted, ambulating with steady gait EKG, labs, UA, head CT, CXR ordered Full HPI, ROS and PE to be performed by primary ED provider. Reevaluation(s) Reevaluation #1: NIH stroke scale 0, patient non focal patient with possible cervical radiculopathy will dc on nsaids Time: 15:06 Medications Administered Discontinued Medications Generic Name Dose Route Start Last Admin Trade Name Freq PRN Reason Stop Dose Admin Ketorolac Tromethamine 60 mg 12/26/22 13:37 12/26/22 14:52 Ketorolac Tromethamine 60 Mg/2 Ml Vial IM 12/26/22 13:38 60 mg ONCE ONE Administration Medical Decision Making Differential Diagnosis Differential Diagnoses: The differential diagnosis associated with the presentation includes (CVA, myalgias, cervical radiculopathy, chest pain, coronary ischemia were all considered) Admission/Observation Consideration of admission/observation: Escalation of care including admissio n/observation considered (In this 52 yo obese female with COPD with left sided pain and possible weakness admission was considered) Lab Data MDM Lab Attestation statement: I reviewed the patient's lab results. 12/26/22 12:48 12/26/22 12:48 Labs: Lab Results 12/26/22 12/26/22 12/26/22 Range/Units 12:48 12:48 12:48 WBC 7.4 (4.8-10.8) X10*3/uL RBC 4.26 (4.20-5.50) X10*6/uL Hgb 13.2 (12.0-16.0) g/dl Hct 39.7 (37.0-47.0) % MCV 93.2 (80.0-98.0) fL MCH 31.0 (27.0-33.0) pg MCHC 33.2 (31.0-35.0) g/dl RDW 12.7 (11.0-16.0) % Plt Count 217 (160-400) X10*3/uL MPV 10.3 (9.4-12.3) fL Immature Gran % (Auto) 0.4 (0.0-0.4) % Neut % (Auto) 61.2 (45-73) % Lymph % (Auto) 28.1 (20-40) % Parmer % (Auto) 6.7 (2-11) % Eos % (Auto) 3.2 (0-4) % Baso % (Auto) 0.4 (0-2) % Lymph # (Auto) 2.1 (1.2-4.9) X10*3/uL Parmer # (Auto) 0.5 (0.1-1.2) X10*3/uL Eos # (Auto) 0.2 (0.0-0.4) X10*3/uL Baso # (Auto) 0.0 (0.0-0.2) X10*3/uL Abs Immat Gran (auto) 0.03 (0.00-0.03) X10*3/uL Absolute Neuts (auto) 4.6 (2.0-8.3) x10*3/uL Absolute Nucleated RBC 0.000 (0.0-0.012) X10*3/uL Nucleated RBC % (auto) 0.0 (0.0-0.2) /100WBC PT 11.3 (10.0-13.1) SEC INR 1.0 (0.9-1.1) Sodium 143 (135-145) mmol/L Potassium 3.7 (3.3-5.1) mmol/L Chloride 111 H (96-108) mmol/L Carbon Dioxide 24 (22-29) mmol/L Anion Gap 12 (12-20) BUN 13 (9-16) mg/dL Creatinine 0.72 (0.5-1.4) mg/dL Estim Creat Clear Calc 109.7 Estimated GFR > 60 Random Glucose 87 (60-115) mg/dL Calcium 8.9 D (8.4-10.2) mg/dL Magnesium 2.0 (1.6-2.6) mg/dL Total Bilirubin 0.5 (0.0-1.0) mg/dL Direct Bilirubin 0.1 (0.0-0.5) mg/dL AST 16 (5-31) U/L ALT 16 (0-31) U/L Alkaline Phosphatase 81 (39-117) U/L Troponin I High Sens (<3.5-17.0) ng/L Total Protein 6.8 (6.5-8.0) g/dL Albumin 3.9 (3.5-5.0) g/dL Urine Color Urine Appearance Urine pH (5.0-9.0) Ur Specific [place] (1.005-1.025) Urine Protein (Neg-Trace) mg/dL Urine Glucose (UA) (Negative) mg/dL Urine Ketones (Negative) mg/dL Urine Blood (Negative) Urine Nitrite (Negative) Ur Leukocyte Esterase (Negative) Urine RBC (0-2) /HPF Urine WBC (0-5) /HPF Ur Squamous Epith Cells (0-2) /HPF Urine Bacteria (None Seen) Hyaline Casts (0-2) /LPF 12/26/22 12/26/22 Range/Units 12:48 14:29 WBC (4.8-10.8) X10*3/uL RBC (4.20-5.50) X10*6/uL Hgb (12.0-16.0) g/dl Hct (37.0-47.0) % MCV (80.0-98.0) fL MCH (27.0-33.0) pg MCHC (31.0-35.0) g/dl RDW (11.0-16.0) % Plt Count (160-400) X10*3/uL MPV (9.4-12.3) fL Immature Gran % (Auto) (0.0-0.4) % Neut % (Auto) (45-73) % Lymph % (Auto) (20-40) % Parmer % (Auto) (2-11) % Eos % (Auto) (0-4) % Baso % (Auto) (0-2) % Lymph # (Auto) (1.2-4.9) X10*3/uL Parmer # (Auto) (0.1-1.2) X10*3/uL Eos # (Auto) (0.0-0.4) X10*3/uL Baso # (Auto) (0.0-0.2) X10*3/uL Abs Immat Gran (auto) (0.00-0.03) X10*3/uL Absolute Neuts (auto) (2.0-8.3) x10*3/uL Absolute Nucleated RBC (0.0-0.012) X10*3/uL Nucleated RBC % (auto) (0.0-0.2) /100WBC PT (10.0-13.1) SEC INR (0.9-1.1) Sodium (135-145) mmol/L Potassium (3.3-5.1) mmol/L Chloride (96-108) mmol/L Carbon Dioxide (22-29) mmol/L Anion Gap (12-20) BUN (9-16) mg/dL Creatinine (0.5-1.4) mg/dL Estim Creat Clear Calc Estimated GFR Random Glucose (60-115) mg/dL Calcium (8.4-10.2) mg/dL Magnesium (1.6-2.6) mg/dL Total Bilirubin (0.0-1.0) mg/dL Direct Bilirubin (0.0-0.5) mg/dL AST (5-31) U/L ALT (0-31) U/L Alkaline Phosphatase (39-117) U/L Troponin I High Sens < 2.7 (<3.5-17.0) ng/L Total Protein (6.5-8.0) g/dL Albumin (3.5-5.0) g/dL Urine Color Yellow Urine Appearance Clear Urine pH 5.5 (5.0-9.0) Ur Specific [place] 1.015 (1.005-1.025) Urine Protein Negative (Neg-Trace) mg/dL Urine Glucose (UA) Negative (Negative) mg/dL Urine Ketones Negative (Negative) mg/dL Urine Blood Negative (Negative) Urine Nitrite Negative (Negative) Ur Leukocyte Esterase Trace H (Negative) Urine RBC 0-2 (0-2) /HPF Urine WBC 0-5 (0-5) /HPF Ur Squamous Epith Cells 0-2 (0-2) /HPF Urine Bacteria None Seen (None Seen) Hyaline Casts 0-2 (0-2) /LPF Independent Interpretation I performed an independent interpretation of an: EKG (sinus 70, no st or twave changes), Plain X-Ray (CXR no infiltrate) and CT Scan (Brain: no mass no bleed) Independent Historian Clinical information obtained from an independent historian. History obtained from or confirmed by: EMS Chronic Conditions Patient?s care impacted by: Other (obesity, COPD) Discharge Plan Discharge Clinical Impression: Myalgia Patient Disposition: Home, Self-Care Instructions: Musculoskeletal Pain (ED) Prescriptions: New naproxen [Naprosyn] 500 mg tablet 500 mg PO BID Qty: 20 0RF No Action budesonide-formoterol [Symbicort] 80-4.5 mcg/actuation HFA aerosol inhaler 2 puff inhalation Referrals: Judy Galvan MD [Primary Care Provider] - 1 week
[2022-12-26 12:55] LABS: MANUAL DIFF FLAG NO
[2022-12-26 12:58] LABS: Basophils Percent Auto 0.4 % (0-2); Eosinophils Absolute Auto 0.2 X10*3/uL (0.0-0.4); Eosinophils Percent Auto 3.2 % (0-4); Hematocrit 39.7 % (37.0-47.0); Hemoglobin 13.2 g/dl (12.0-16.0); Imm Gran Abs Auto 0.03 X10*3/uL (0.00-0.03); Imm Gran Pct Auto 0.4 % (0.0-0.4); Lymphocytes Absolute Auto 2.1 X10*3/uL (1.2-4.9); Lymphocytes Percent Auto 28.1 % (20-40); Mean Corpuscular HGB Conc 33.2 g/dl (31.0-35.0); Mean Corpuscular Volume 93.2 fL (80.0-98.0); Mean Platelet Volume 10.3 fL (9.4-12.3); Monocytes Absolute Auto 0.5 X10*3/uL (0.1-1.2); Monocytes Percent Auto 6.7 % (2-11); Neutrophils Absolute Auto 4.6 x10*3/uL (2.0-8.3); Neutrophils Percent Auto 61.2 % (45-73); Platelet Count 217 X10*3/uL (160-400); Red Blood Count 4.26 X10*6/uL (4.20-5.50); Red Cell Distribution Width 12.7 % (11.0-16.0); White Blood Count 7.4 X10*3/uL (4.8-10.8)
[2022-12-26 13:13] LABS: Alanine Aminotransferase 16 U/L (0-31); Albumin Level 3.9 g/dL (3.5-5.0); Alkaline Phosphatase 81 U/L (39-117); Anion Gap 12 (12-20); Aspartate Amino Transferase 16 U/L (5-31); Bilirubin Direct 0.1 mg/dL (0.0-0.5); Bilirubin Total 0.5 mg/dL (0.0-1.0); Blood Urea Nitrogen 13 mg/dL (9-16); Calcium 8.9 mg/dL (8.4-10.2); Carbon Dioxide 24 mmol/L (22-29); Chloride 111 mmol/L (96-108); Creatinine Clr Calc Pharmacy 109.7; Estimated Glomerular Filt Rate > 60; Glucose Random 87 mg/dL (60-115); Potassium 3.7 mmol/L (3.3-5.1); Sodium 143 mmol/L (135-145); Total Protein 6.8 g/dL (6.5-8.0)
[2022-12-26 13:16] LABS: Prothrombin Time 11.3 SEC (10.0-13.1)
[2022-12-26 13:21] LABS: Troponin-I High Sensitivity < 2.7 ng/L (<3.5-17.0)
[2022-12-26 13:26] VITALS: BP 118/67; PULSE 70; RESP 12; TEMP 37; O2SAT 99
[2022-12-26 14:25] VITALS: BP 124/69; PULSE 64; RESP 14; O2SAT 97
[2022-12-26 14:42] LABS: Appearance Urine Clear; Color Urine Yellow; Glucose Urine UA Negative (Negative); Leukocyte Esterase Urine Trace (Negative); Nitrite Urine Negative (Negative); PH 5.5 (5.0-9.0); Specific Gravity - Urine 1.015 (1.005-1.025); UMIC TRIGGER UACC YES; Urine Blood Negative (Negative); Urine Ketones Negative (Negative); Urine Protein Negative (Neg-Trace)
[2022-12-26 14:45] LABS: Bacteria Urine None Seen (None Seen); Hyaline Casts Urine 0-2 /LPF (0-2); RBC Urine 0-2 /HPF (0-2); Squamous Epithelial Cell Urine 0-2 /HPF (0-2); WBC Urine 0-5 /HPF (0-5)
[2022-12-26] MEDS: Ketorolac Tromethamine 60 MG/2 ML VIAL IM (14:52)
== END 2022-12-26 15:54 | disposition home or self-care (01) ==
PROVIDERS: Physician Assistant; Emergency Provider Emergency Medicine; PCP Internal Medicine
DX: R07.89 Other chest pain (principal); M79.10 Myalgia, unspecified site; R51.9 Headache, unspecified; Z87.891 Personal history of nicotine dependence; Z79.899 Other long term (current) drug therapy
CPT/HCPCS: 36415; 70450; 71045; 80048; 80076; 81001; 83735; 84484; 85025; 85610; 93005; 96372; 99284; J1885

== ENCOUNTER → 2023-01-10 08:50 | Outpatient (REF) | payer MEDICAID, SELFPAY ==
--- NOTE | 2023-01-10 08:52 | CA_ITS ---
Transthoracic Echocardiogram Patient (Last, First, Middle): Elza Bhardwaj, Gender: Female Date of : 1970 Age: 52 Procedure Date: 01/10/2023 Procedure Type: Transthoracic Echocardiogram Location: OP Height: 157.48 cm Weight: 112.95 kg BSA: 2.10 m2 Heart Rate: bpm BP: 122 / 80 mmHg [place]: TO Referring MD: Eliseo Denise MD Build Manager: Vineet Shipman MD Symptoms: R07.2 - Precordial pain Study Quality: Fair ECG Rhythm: Sinus Conclusions: - Normal study Findings Left Ventricle Normal left ventricular size, thickness, and systolic function. The visually estimated ejection fraction is between 60-65%. There is no evidence of regional wall motion abnormalities. Diastolic function is normal for age. Peak GLS is -20.2%, within normal limits. Right Ventricle Normal right ventricular cavity size and systolic function. Atria Both atria are normal in size. There is lipomatous hypertrophy of the interatrial septum. There is no evidence of interatrial shunt. Aortic Valve Normal aortic valve structure and function. There is no aortic valve stenosis. There is no aortic valve regurgitation. Mitral Valve Normal mitral valve structure and function. There is trace mitral valve regurgitation. There is no mitral valve stenosis. Pulmonic Valve The pulmonic valve is likely normal. There is trace pulmonic valve regurgitation. Tricuspid Valve Normal tricuspid valve structure. There is trace tricuspid valve regurgitation. The right ventricular systolic pressure is normal. The right ventricular systolic pressure is 19 mmHg. Normal right atrial pressure. There is no evidence of pulmonary hypertension. Great Vessels All visible segments of the aorta are normal in size. The pulmonary artery was not well visualized. Venous The inferior vena cava is normal in size and collapses greater than 50% with inspiration. Pericardium/Pleural There is no evidence of pericardial effusion. Measurements 2D Linear Measurements IVSd: 1.03 0.6-0.9/0.6-1.0 cm LVIDd: 4.31 3.9-5.3/4.2-5.9 cm LVIDd Index: 2.05 2.4-3.2/2.2-3.1 cm/m2 LVIDs: 3.04 2.0-3.6 cm LVPWd: 0.71 0.7-1.1 cm LA Diam: 3.40 2.7-3.8/3.0-4.0 cm LAIDs Index: 1.62 1.5-2.3 cm/m2 LV Mass: 146.92 67-162/88-224 g LV Mass Index: 69.96 43-95/49-115 g/m2 LVOT Diam: 2.00 3.0+(-)1.3 cm 2D Systolic Function EF 4C: 58.00 >55% EF 2C: 65.30 >55% EF BiP: 61.60 >55% Mitral Valve MV Pk E: 1.00 MV PK A: 0.58 MV Decel Time: 219.00 E/A: 1.70 E'Lateral: 12.60 E'Medial: 10.70 E/E' Med: 9.30 E/E' Lat: 7.90 PHT: 64.00 MVA PHT: 3.44 Decel Rogers: 4.57 Aortic Valve AoV Pk Michael: 1.31 AoV Mn Michael: 0.88 AoV VTI: 0.30 AoV Pk Grad: 7.00 Aov Mn Grad: 4.00 RAMANA Cont.VTI: 2.52 LVOT LVOT Pk Michael: 1.08 LVOT Mn Michael: 0.68 LVOT VTI: 0.24 LVOT Pk Grad: 5.00 LVOT Mn Grad: 2.00 LVOT Diam: 2.00 LVOT Area: 3.14 Diastolic Function MV Pk E: 1.00 MV Pk A: 0.58 E/A: 1.70 E'Medial: 10.70 E/E' Med: 9.30 E' Laterial: 12.60 E/E' Lat: 7.90 Right Ventricle TAPSE (mm): 18.20 TVS' Michael: 11.70 Tricuspid Valve TR Pk Michael: 2.01 TR Pk Grad: 16.00 RA Press: 3.00 RVSP: 19.00 Great Vessels Aorta Sinus of Valsalva: 2.94 2.0-3.5 cm Ao Asc: 3.00 2.1-3.4 cm Updated in Other Vendor System with Status of Final Vineet Shipman MD electronically signed on 01/11/2023 8:34:54 AM with status of Final
== END ==
LOC: HO.CARD 08:50
PROVIDERS: PCP Internal Medicine; Visit Provider Internal Medicine
DX: R07.2 Precordial pain (principal)
CPT/HCPCS: 93306; 93356

== ENCOUNTER 2023-02-02 13:37 | Outpatient (REF) | payer MEDICAID, SELFPAY ==
[2023-02-02 14:45] LABS: Cholesterol 213 mg/dL; HDL Cholesterol 104 mg/dL; LDL Cholesterol Calculated 96 mg/dl; Triglycerides 69 mg/dL
[2023-02-02 14:59] LABS: TSH reflex Free T4 0.41 uIU/mL (0.32-4.0); Vitamin D 25-OH Total 32.3 ng/mL (>30)
[2023-02-02 15:10] LABS: Reflex LDLD? No
== END 2023-02-02 13:38 | disposition home or self-care (01) ==
LOC: HO.LAB 13:37
PROVIDERS: PCP Internal Medicine; Visit Provider Internal Medicine
DX: D17.4 Benign lipomatous neoplasm of intrathoracic organs (principal); J45.40 Moderate persistent asthma, uncomplicated; F43.22 Adjustment disorder with anxiety
CPT/HCPCS: 36415; 80061; 82306; 84443

== ENCOUNTER 2023-02-09 08:54 | Outpatient (AMB) | payer MEDICAID, SELFPAY ==
--- NOTE | 2023-02-09 09:00 | A.OFFVIS_ITS ---
Intake Vital Signs 02/09/23 09:01 Height 5 ft 2 in Weight 249 lb 1.957 oz BMI 45.6 BP 120/70 Blood Pressure Location Lt brachial Position Sitting Pulse 64 Pulse Source Pulse Oximeter Intake Visit Reasons: 3 month f/u s/b cta/echo Intake Note: 3 month f/u cta/echo Payroll Accounting Manager Required: Yes Payroll Accounting Manager Name: francia Yeboah [id number] Allergies No Known Allergies [No Known Allergies*] Allergy (Verified 02/09/23 09:07) Medication List - Last Reconciled 02/09/23 by Fernanda Rose, YOGA COORDINATOR-C budesonide-formoterol 80-4.5 mcg/actuation (Symbicort) 2 puffs inhalation naproxen (Naprosyn) 500 mg PO BID HPI 3 month f/u s/b cta/echo HPI Details Elza is a 53-year-old female with past medical history of morbid obesity, asthma, reported an unclear history of loss of consciousness requiring CPR when in [place] who was recently seen by Dr. Denise in cardiac consultation. She has a large fatty mass in her left chest that will likely require surgery. An echocardiogram was performed and a CTA of the coronary arteries is still pending. Today she reports that she generally feels well. She does get some sharp pains in her left chest region that occur randomly. She denies pain with deep inspiration or with physical activity. No shortness of breath, PND, orthopnea or edema. No dizziness, presyncope, syncope. She has follow-up with her surgeon next week. She has no surgery date scheduled as of yet. Daughter is present. Certified medical interpreter used. [facility] Medical History Asthma History of COVID-19 Hypovitaminosis D Morbid obesity Surgical History History of bilateral tubal ligation History of History of cholecystectomy History of colonoscopy Family History Mother Hypertension Diabetes Father Cancer Daughter No problems noted. 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 Sexual orientation: Straight/Heterosexual Gender identity: Female Female Reproductive History Menstrual Age of Menarche: 9 Review of Systems Const All systems reviewed & are unremarkable except as noted in HPI and below ENT Reports dizziness Card Reports chest pain, Reports chest pain at rest, Denies chest pain with activity, Denies rapid heart rate, Denies pedal edema, Denies edema, Denies leg edema, Denies lightheadedness, Denies palpitations, Denies dyspnea, Denies dyspnea on exertion and Denies orthopnea Resp Denies cough, Denies dyspnea and Denies dyspnea on exertion GI Denies hematochezia and Denies change in stool character Musc Denies abnormal gait, Reports limited range of motion, Reports muscle cramps, Denies muscle weakness, Denies numbness, Denies radiating pain into limb, Denies stiffness and Denies tingling Neuro Denies abnormal gait, Reports dizziness, Denies numbness and Denies tingling Endo Denies palpitations Physical Exam Vital Signs: Last Vital Signs Pulse 64 02/09/23 09:01 BP 120/70 02/09/23 09:01 BMI result Body Mass Index 45.6 Const General: cooperative, healthy appearing, comfortable and no acute distress Orientation/consciousness: patient oriented x3 Neck Neck: Yes normal visual inspection Resp Effort & Inspection: normal respiratory effort Auscultation: clear to auscultation bilaterally, no crackles, no rales, no rhonchi and no wheezes Cardio Jugular venous distension: no JVD Rate: regular rate Rhythm: regular rhythm Heart sounds: S1 normal heart sound present, S2 normal heart sound present, no murmurs and no rubs Neuro General: patient oriented x3 Extrem General: Yes normal to inspection Psych Appearance: grossly normal Mental Status: mental status grossly normal Speech and movement: Normal speech and movement present Assessment & Plan Assessment & Plan (1) Precordial chest pain: Code(s): R07.2 - Precordial pain Plan: Atypical sounding chest discomfort. Patient is preop for thoracic surgery. She has no known history of OK, cardiomyopathy, arrhythmia. There is an unclear report of loss of consciousness requiring CPR while in [place] in the past EKG done 12/26/2022 shows sinus rhythm with no acute ST or T-wave abnormalities. Echocardiogram done 01/10/2023 shows EF 60-65%, no regional wall motion abnormalities, RV, atriums normal size. A CTA of the coronary arteries has been ordered however not completed as of yet. She is currently scheduled to have this on 02/23/2023 at [facility]. Preop clearance will need to be completed once CTA results are available. At this time will schedule cardiology office visit in 3-4 months, sooner if needed. (2) Chest mass: Comment: ([id number] mass left lung base - noted on 10/2022 CT done in [place]) Code(s): R22.2 - Localized swelling, mass and lump, trunk Plan: Being followed by Dr. Rodriguez. No surgery date planned as of yet. (3) Morbid obesity: Code(s): E66.01 - Morbid (severe) obesity due to excess calories Coding Level of Care Code Est Pt Level 4 (81189) Diagnoses Precordial chest pain R07.2 Chest mass R22.2 Morbid obesity E66.01 Time Spent (min) 26 Comment Chart review, documentation, interview, assess
[2023-02-09 09:01] VITALS: BP 120/70; PULSE 64; BMI 45.6
== END 2023-02-09 09:33 | disposition home or self-care (01) ==
PROVIDERS: PCP Internal Medicine; Visit Provider Nurse Practitioner Family
DX: R07.2 Precordial pain (principal); R22.2 Localized swelling, mass and lump, trunk; E66.01 Morbid (severe) obesity due to excess calories
CPT/HCPCS: 99214

== ENCOUNTER → 2023-02-09 08:54 | Outpatient (BNVA) | payer MEDICAID, SELFPAY | PROVIDERS: PCP Internal Medicine; Visit Provider Nurse Practitioner Family | DX: R22.2 Localized swelling, mass and lump, trunk (principal); R07.2 Precordial pain; E66.01 Morbid (severe) obesity due to excess calories; Z68.42 Body mass index [BMI] 45.0-49.9, adult | CPT/HCPCS: 99214 ==

== ENCOUNTER 2023-02-16 10:43 | Outpatient (AMB) | payer MEDICAID, SELFPAY ==
--- NOTE | 2023-02-16 11:08 | A.OFFVIS_ITS ---
Intake Vital Signs 02/16/23 11:23 Height 5 ft 2 in Weight 252 lb BMI 46.1 BP 120/70 Blood Pressure Location Lt brachial Position Sitting Pulse 64 Pulse Oximetry (%) 98 Intake Visit Reasons: follow up after MRI Allergies No Known Allergies [No Known Allergies*] Allergy (Verified 02/16/23 11:24) Medication List - Last Reconciled 02/17/23 by Fely Mar MD budesonide-formoterol 80-4.5 mcg/actuation (Symbicort) 2 puffs inhalation naproxen (Naprosyn) 500 mg PO BID HPI follow up after MRI HPI Details 52-year-old woman nonsmoker never smoker seen with an gift packer today for a fatty mass in the chest.? I was not able to view directly her CT scan from [place] at [facility] but I did review the report and compared with previous CT scans done here at [place] showing a 16 by 10 cm fatty mass within the left chest base does seem to have 1 septation to it.? There is some mild atelectasis of the left lower lobe.? She tells me that she went to [place] to deal with some family issues and when she was visiting with family at that time she lost consciousness and tells me she got CPR and was brought to that local hospital [facility].? While she was there she did get the CT scan that I mentioned above.? She has all the paperwork from [place] and will bring most all her upcoming appointments.? 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 The MRI was done on 12/13/2022.? She also saw Dr. Denise from cardiology who is arranging for her to have an echocardiogram and a CT angiogram. The echocardiogram was done on 01/10/2023 which shows normal valves and a normal EF with normal LV and RV motion and volumes. She has not had the CT coronary angiogram as of yet which she showed me and document confirming that this is going to take place on 02/23/2023 at [facility]. Her grandfather did have lung cancer.? Otherwise she reports feeling generally in good health and denies unintentional weight loss decreased appetite fevers chills or soaking sweats.? She does report some fatigue.? She denies current chest pain although she says she had chest pain prior to collapsing in [place].? She does report some shortness of breath but denies a persistent cough or hemoptysis. ? ? [facility] Medical History Asthma History of COVID-19 Hypovitaminosis D Morbid obesity Surgical History History of bilateral tubal ligation History of History of cholecystectomy History of colonoscopy Family History Mother Hypertension Diabetes Father Cancer Daughter No problems noted. 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 I will plan on following up with her in the office after that is done and will likely discuss surgical resection of the mass in her chest at that point and will pro bably need a cardiology risk assessment at that point as well. Of note, this will most likely take a thoracotomy to remove given its size. (2) Precordial chest pain: Code(s): R07.2 - Precordial pain Coding Level of Care Code Est Pt Level 3 (38193) Diagnoses Chest mass R22.2 Precordial chest pain R07.2
[2023-02-16 11:23] VITALS: BP 120/70; PULSE 64; O2SAT 98; BMI 46.1
== END 2023-02-16 11:36 | disposition home or self-care (01) ==
PROVIDERS: PCP Internal Medicine; Visit Provider Surgery
DX: R22.2 Localized swelling, mass and lump, trunk (principal); R07.2 Precordial pain

== ENCOUNTER → 2023-02-16 10:43 | Outpatient (BNVA) | payer MEDICAID, SELFPAY | PROVIDERS: PCP Internal Medicine; Visit Provider Surgery | DX: R22.2 Localized swelling, mass and lump, trunk (principal); R07.2 Precordial pain | CPT/HCPCS: 99212 ==

== ENCOUNTER 2023-03-23 09:00 | Outpatient (AMB) | payer MEDICAID, SELFPAY ==
[2023-03-23 09:10] VITALS: BP 140/70; PULSE 95; O2SAT 97; BMI 44.6
--- NOTE | 2023-03-23 09:10 | A.OFFVIS_ITS ---
Intake Vital Signs 03/23/23 09:10 Height 5 ft 2 in Weight 244 lb BMI 44.6 BP 140/70 H Blood Pressure Location Lt brachial Position Sitting Pulse 95 Pulse Oximetry (%) 97 Intake Visit Reasons: follow up Allergies No Known Allergies [No Known Allergies*] Allergy (Verified 03/23/23 09:11) Medication List - Last Reconciled 03/23/23 by Fely Mar MD budesonide-formoterol 80-4.5 mcg/actuation (Symbicort) 2 puffs inhalation naproxen (Naprosyn) 500 mg PO BID HPI follow up HPI Details 53-year-old woman nonsmoker never s raymundoker seen with an oracle obiee developer today for a fatty mass in the chest.? I w as not able to vie w directly her CT scan from [facility] but I did review the rep ort and compared w ith previous CT sc ans done here at [facility] [place] showing a 1 6 by 10 cm fatty m ass within the lef t chest base does seem to have 1 sep tation to it.? The re is some mild at electasis of the l eft lower lobe.? S he tells me that s he went to [place] to deal with some family issues and when she was visiting with emilia wood at that time prashant ty lost consciousne ss and tells me prashant ty got CPR and was brought to that [facility]. ? While she was th ere she did get th e CT scan that I m entioned above.? S he has all the pap erwork from [place] and will lucho garcia most all her up coming appointment s.? We then did an MRI to better enmanuel racterize the lesi on in the chest an d this does to me look like it is a lipoma with 1 sept ation in it.? The MRI was done on .? She also saw Dr. Jacqui cole from cardiology who is arranging for her to have an echocardiogram an d a CT angiogram. The echocardiogram was done on 2022 which shows n ormal valves and a normal EF with no rmal LV and RV mot ion and volumes. She had her CT cor onary angiogram at [facility] on 02/13 which showe d no evidence of c oronary disease. She has been deeme d low cardiac risk by Cardiology. H er grandfather did have lung cancer. ? Otherwise she re ports feeling gene rally in good heal th and denies unin tentional weight l oss decreased appe tite fevers chills or soaking sweats .? She does report some fatigue.? Sh melony does say that sh melony has chest pains up into her left s houlder when lying on that side in p articular. She de nies current chest pain although she says she had ches t pain prior to co llapsing in [place].? She does r eport some shortne ss of breath but d enies a persistent cough or hemoptys is. ? ? [facility] Medical History History of COVID-19 Morbid obesity Hypovitaminosis D Asthma Surgical History History of colonoscopy History of cholecystectomy History of bilateral tubal ligation History of Family History Mother Hypertension Diabetes Father Cancer Daughter No problems noted. 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 Neck: No thyromegaly, supple, no JVD Lymph: No cervical, supraclavicular, or other lymphadenopathy Chest: No chest wall abnormalities or deformities Heart: Regular rate and rhythm Lungs: Clear to auscultation bilaterally decreased at the base on the left Abdomen: Soft, nontender, normal bowel sounds Extremities: No edema, cyanosis, or clubbing. Full range of motion Neuro: Grossly intact, alert and oriented x3, and nonfocal Skin: Warm and dry no rashes Affect: Normal Assessment & Plan Assessment & Plan (1) Chest mass: Comment: ([id number] mass left lung base - noted on 10/2022 CT done in [place]) Code(s): R22.2 - Localized swelling, mass and lump, trunk Plan: 53-year-old woman with a large fatty mass in the left chest measuring up to 16 cm with resultant atelectasis of the left lower lobe in particular. I had a long discussion with her through an oracle obiee developer about findings on all of her imaging including MRI, CT scans, and echocardiogram as described above. We discussed the option of a surgery to remove this mass which I explained to her would be at least started minimally invasively with the Davinci robot by may not be able to take out the mass without a thoracotomy. I discussed the risks, benefits, and alternatives of this surgery in detail which she understood. Ultimately she does want to have this mass removed and will plan on getting her on the schedule likely for early to mid April. She does take Naprosyn and would need to stop that for 2 weeks prior to operation. All questions were answered. Cardiology has deemed her a low cardiac risk. We will also get pulmonary function testing prior to operation. (2) Precordial chest pain: Code(s): R07.2 - Precordial pain (3) Cardiovascular collapse: Code(s): R57.0 - Cardiogenic shock Orders: Orders PFT pulmonary function test Today R22.2 - Localized swelling, mass and lump, trunk Coding Level of Care Code Est Pt Level 5 (59749) Diagnoses Chest mass R22.2 Precordial chest pain R07.2 Cardiovascular collapse R57.0
== END 2023-03-23 09:28 | disposition home or self-care (01) ==
PROVIDERS: PCP Internal Medicine; Visit Provider Surgery
DX: R22.2 Localized swelling, mass and lump, trunk (principal); R07.2 Precordial pain; R57.0 Cardiogenic shock

== ENCOUNTER → 2023-03-23 09:00 | Outpatient (BNVA) | payer MEDICAID, SELFPAY | PROVIDERS: PCP Internal Medicine; Visit Provider Surgery | DX: R22.2 Localized swelling, mass and lump, trunk (principal); R07.2 Precordial pain; R57.0 Cardiogenic shock | CPT/HCPCS: 99212 ==

== ENCOUNTER 2023-04-09 | Outpatient (REF) | payer MEDICAID, SELFPAY ==
--- NOTE | 2023-04-09 15:09 | PFT_ITS ---
Forced vital capacity 64%, FEV1 59%, FEV1 over FVC ratio is 74. QLW07-56 is 36% and MVV 60%. Post bronchodilator therapy, there is a significant improvement and all the flow volumes are increased to normal level. Total lung capacity 88%. Residual volume 104%. Diffusion capacity 124%. CONCLUSION: Baseline obstructive airway disorder with excellent response to bronchodilator therapy. These findings are consistent with bronchial asthma. MD JT Trevizo/CORTNEY / [id number]
== END 2023-04-09 00:01 ==
LOC: HO.RESP
PROVIDERS: PCP Internal Medicine; Visit Provider Surgery
DX: R22.2 Localized swelling, mass and lump, trunk (principal)
CPT/HCPCS: 94010; 94727; 94729

== ENCOUNTER → 2023-04-09 15:09 | Outpatient (BNV) | payer MEDICAID, SELFPAY | PROVIDERS: PCP Internal Medicine; Visit Provider Internal Medicine | DX: J45.909 Unspecified asthma, uncomplicated (principal) | CPT/HCPCS: 94060; 94727; 94729 ==

== ENCOUNTER 2023-04-10 15:59 | Emergency (ER) | payer MEDICAID, SELFPAY ==
--- NOTE | ~2023-04-10 | CT_ITS ---
EXAMINATION: CT CERVICAL SPINE WITHOUT CONTRAST CLINICAL INFORMATION: Midline tenderness COMPARISON: Previous x-ray August 2020 TECHNIQUE: Axial images through the cervical spine without IV contrast. Sagittal and coronal reconstructions on the technologist workstation were performed. This CT examination was performed using dose optimization techniques as appropriate, variously including the following: *Automated exposure control *Adjustment of mA and/or kV according to patient size (this includes techniques or standardized protocols for targeted exams where dose is matched to indication/reason for exam; i.e. extremities or head) *Use of iterative reconstruction technique DLP: 679 mGy-cm FINDINGS: Bone alignment is normal. No fracture or dislocation. Degenerative spondylosis and degenerative disc disease from C4-C5 to T1-T2. Prevertebral soft tissues are normal. Visualized lung apices are clear. CT/CT cervical spine wo IV con IMPRESSION: Degenerative spondylosis and degenerative disc from C4-C5 to T1-T2. Fleischner guidelines were followed.
[2023-04-10 16:06] VITALS: BP 158/65; PULSE 67; RESP 18; TEMP 37.1; O2SAT 99; BMI 45.0
--- NOTE | 2023-04-10 16:07 | ED_ITS ---
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 States pain increases with range of motion from left shoulder. She denies any falls or other trauma. Does report intermittent numbness and tingling down left arm to fingers. Denies headache. Denies changes in vision. Denies any dizziness or lightheadedness. Denies any shortness of breath or cough. Denies sore throat. Denies fevers. complaint: neck pain Onset (ago): hour(s) Location: neck Radiation: other (as noted) Severity: severe Quality: aching Pain Consistency: constant Relieving factors: none Exacerbating factors: movement Associated symptoms: denies other symptoms Treatments prior to arrival: none Related Data Home Medications Medication Instructions Recorded Confirmed budesonide-formoterol HFA 80 2 puff inhalation 12/21/22 03/23/23 mcg-4.5 mcg/actuation aerosol inhaler (Symbicort) Previous Rx's Medication Instructions Recorded naproxen 500 mg tablet (Naprosyn) 500 mg PO BID #20 tabs 12/26/22 cyclobenzaprine 5 mg tablet 5 mg PO TID PRN muscle spasm #10 04/10/23 tabs lidocaine 5 % topical patch 1 patch topical DAILY #15 ea 04/10/23 Allergies Allergy/AdvReac Type Severity Reaction Status Date / Time No Known Allergies Allergy Verified 03/23/23 09:11 [No Known Allergies*] Review of Systems 2 Review of Systems: As per MDM. Yes all other systems are reviewed and are negative Constitutional: Constitutional: Reports as per HPI [facility] Past Medical History Medical History History of COVID-19 Morbid obesity Hypovitaminosis D Asthma Surgical History History of colonoscopy History of cholecystectomy History of bilateral tubal ligation History of Family History Family History Mother Hypertension Diabetes Father Cancer Daughter No problems noted. 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 Blood pressure normal. Heart rate normal. Respiratory rate normal. Temperature normal. Oxygen saturation normal. Const General: cooperative, healthy appearing and no acute distress Orientation/consciousness: oriented to person, oriented to place, oriented to time and patient oriented x3 Limitations: no limitations HENMT Head: Yes normocephalic and Yes atraumatic Ears: external ears normal and TM's normal bilaterally General nose exam: Normal external nose present Face and sinus: Yes face symmetric Mouth: Normal oral and palatal mucosa present, oropharynx normal and moist mucous membranes Throat: Yes posterior oropharynx normal, Yes uvula midline and No uvular edema Eyes Pupils: Equal, round and reactive pupils present Neck Neck: Yes normal visual inspection, Yes full ROM, Yes no lymphadenopathy, Yes no meningeal signs, Yes trachea midline, Yes supple and No anterior neck swelling Carotids: normal carotid upstroke and no bruits Lymphatic: no lymphadenopathy noted Resp Effort & Inspection: normal respiratory effort and able to speak in complete sentences Auscultation: clear to auscultation bilaterally Cardio Rate: regular rate Rhythm: regular rhythm Heart sounds: S1 normal heart sound present and S2 normal heart sound present GI Palpation (GI): Soft to palpation and nontender Auscultation: normoactive bowel sounds General: Yes no CVA tenderness Back/Spine/Pelvis Back: no CVA tenderness Cervical Spine: normal cervical lordosis, cervical ROM normal, No Lhermitte's sign positive, cervical muscular tenderness (left lateral), pain with cervical ROM, Cervical spine tenderness and No step off deformity Skin General skin exam: elasticity normal and turgor normal Neuro General: oriented to person, oriented to place, oriented to time, patient oriented x3, gait normal, tone normal, moves all extremities, Normal light touch and pain sensation, no meningeal signs, no focal motor deficits, CN's II-XI intact bilaterally, normal sensation to monofilament and deep tendon reflexes 2+ bilaterally Cranial nerves: Yes Equal, round and reactive pupils present Cognition (Neuro): normal cognition Motor exam (neuro): 5/5 motor strength present throughout, Pronator motor function not present, Normal motor muscle tone present throughout and Motor abnormalities not present Sensory Exam: Normal double simultaneous stimulation for sensation Extrem General: Yes full ROM, Yes no pedal edema and Yes no calf tenderness Psych Mental Status: mental status grossly normal Affect: normal affect Thought process: Normal thought process present Course Course Course Narrative: This is an RME: Additional HPI, ROS, PE not included below will be deferred to primary provider. 53 yo female presenting for pain of the L side of the face and neck since last night. Denies visual changes. States it Feels like my neck is swollen . Also reporting intermittent chest stabbing pain . Denies shortness of breath, dizziness, abd pain, N/V. Plan -- EKG Reevaluation(s) Reevaluation #1: Labs unremarkable. Troponin negative, EKG nonischemic. CT of cervical spine with degenerative changes from C5-C6 and T1-T2. Patient to be discharged home. Educated patient on diagnosis and treatment plan, answered all question, patient verbalizes understanding. At this time patient will be discharged home, advised to return with new or worsening symptoms. Educated on worrisome signs and symptoms and when to return. At this time I feel comfortable discharge home. I do not suspect ACS based on patient history and physical exam Time: 20:03 Medical Decision Making Medical Decision Making MDM Narrative: Patient is a 53-year-old Georgian-speaking female with history of asthma presenting to the emergency department with complaint of left lateral neck pain radiating up to face and down to left clavicle area as well as left arm which began last night. On exam patient is awake, A+Ox3, VS WNL, afebrile, normal neurological exam without focal deficits, physical exam findings as above. Given reported symptoms and physical exam findings, initial differential includes cervical strain, cervical radiculopathy, cervical spondylosis, degenerative disc disease, osteoarthritis. No red flag findings concerning for cord compression, infection such as meningitis. Patient signed out to KHAI Ramos pending labs and CT results. Differential Diagnosis Differential Diagnoses: The differential diagnosis associated with the presentation includes As per MDM. Lab Data 04/10/23 18:41 04/10/23 18:41 Labs: Lab Results 04/10/23 Range/Units 18:41 WBC 8.2 (4.8-10.8) X10*3/uL RBC 4.01 L (4.20-5.50) X10*6/uL Hgb 13.2 (12.0-16.0) g/dl Hct 38.4 (37.0-47.0) % MCV 95.8 (80.0-98.0) fL MCH 32.9 (27.0-33.0) pg MCHC 34.4 (31.0-35.0) g/dl RDW 12.4 (11.0-16.0) % Plt Count 233 (160-400) X10*3/uL MPV 10.6 (9.4-12.3) fL Immature Gran % (Auto) 0.2 (0.0-0.4) % Neut % (Auto) 66.8 (45-73) % Lymph % (Auto) 22.7 (20-40) % Sheridan % (Auto) 7.2 (2-11) % Eos % (Auto) 2.9 (0-4) % Baso % (Auto) 0.2 (0-2) % Lymph # (Auto) 1.9 (1.2-4.9) X10*3/uL Sheridan # (Auto) 0.6 (0.1-1.2) X10*3/uL Eos # (Auto) 0.2 (0.0-0.4) X10*3/uL Baso # (Auto) 0.0 (0.0-0.2) X10*3/uL Abs Immat Gran (auto) 0.02 (0.00-0.03) X10*3/uL Absolute Neuts (auto) 5.5 (2.0-8.3) x10*3/uL Absolute Nucleated RBC 0.000 (0.0-0.012) X10*3/uL Nucleated RBC % (auto) 0.0 (0.0-0.2) /100WBC Sodium 142 (135-145) mmol/L Potassium 4.5 D (3.3-5.1) mmol/L Chloride 106 (96-108) mmol/L Carbon Dioxide 27 (22-29) mmol/L Anion Gap 14 (12-20) BUN 16 (9-16) mg/dL Creatinine 0.85 (0.5-1.4) mg/dL Estim Creat Clear Calc 90.2 Estimated GFR > 60 Random Glucose 98 (60-115) mg/dL Calcium 9.4 (8.4-10.2) mg/dL Troponin I High Sens < 2.7 (<3.5-17.0) ng/L External Record Review External record reviewed: Inpatient record, Office record and Outpatient record Prescription Management I considered prescription management with: Pain Medication and Other Discharge Plan Discharge Clinical Impression: Cervical radiculopathy Patient Disposition: Still a Patient Instructions: Cervical Radiculopathy (ED) Additional Instructions: Fue valorado en urgencias por dolor de nitza. Verenice im?genes no mostraron ninguna evidencia de fractura u otros hallazgos preocupantes. Es probable que angeles dolor est? relacionado con angelic distensi?n muscular y la inflamaci?n de un nervio. Recomendamos mehdi 600 mg de ibuprofeno o 650 mg de Tylenol. Si es necesario, puedes alternar estos medicamentos cada hillary horas. Por ejemplo, al mediod?a harinder Tylenol, luego a las 3:00 harinder ibuprofeno, luego a las 6:00 harinder Tylenol, etc. Tambi?n te recetan un relajante muscular que puedes usar hasta cada 8 horas seg?n sea necesario. Si le recetan parches t?picos de lidoca?na que puede usar hasta por 12 horas en un per?odo de 24 horas, no aplique calor directamente sobre los parches. Debe realizar un seguimiento con angeles proveedor de atenci?n primaria, ya que es posible que necesite fisioterapia para mejorar verenice s?ntomas. Regrese al departamento de emergencias si presenta un empeoramiento del dolor o rigidez en el nitza, nueva debilidad, entumecimiento u hormigueo en el brazo, gwen de mary ann intensos o cualquier otro s?ntoma preocupante. CT/CT cervical spine wo IV con IMPRESSION: Degenerative spondylosis and degenerative disc from C4-C5 to T1-T2. Fleischner guidelines were followed. Prescriptions: New cyclobenzaprine 5 mg tablet 5 mg PO TID PRN (Reason: muscle spasm) Qty: 10 0RF lidocaine 5 % adhesive patch,medicated 1 patch topical DAILY Qty: 15 0RF Rx Instructions: leave on most painful area for up to 12 hrs No Action naproxen [Naprosyn] 500 mg tablet 500 mg PO BID Qty: 20 0RF budesonide-formoterol [Symbicort] 80-4.5 mcg/actuation HFA aerosol inhaler 2 puff inhalation Print Language: Georgian
--- NOTE | 2023-04-10 16:08 | ECG_ITS ---
Test Reason : CHEST PAIN Blood Pressure : / mmHG Vent. Rate : 060 BPM Atrial Rate : 060 BPM P-R Int : 166 ms QRS Dur : 070 ms QT Int : 408 ms P-R-T Axes : 049 027 020 degrees QTc Int : 408 ms Normal sinus rhythm Septal infarct , age undetermined Abnormal ECG When compared with ECG of 26-DEC-2022 12:39, Septal infarct is now Present Referred By: Diana Santos Electronically Signed By:DONITA ROJAS
[2023-04-10 18:06] VITALS: BP 126/74; PULSE 72; RESP 20; TEMP 36.9; O2SAT 98
[2023-04-10 18:46] LABS: MANUAL DIFF FLAG NO
[2023-04-10 19:06] LABS: Basophils Percent Auto 0.2 % (0-2); Eosinophils Absolute Auto 0.2 X10*3/uL (0.0-0.4); Eosinophils Percent Auto 2.9 % (0-4); Hematocrit 38.4 % (37.0-47.0); Hemoglobin 13.2 g/dl (12.0-16.0); Imm Gran Abs Auto 0.02 X10*3/uL (0.00-0.03); Imm Gran Pct Auto 0.2 % (0.0-0.4); Lymphocytes Absolute Auto 1.9 X10*3/uL (1.2-4.9); Lymphocytes Percent Auto 22.7 % (20-40); Mean Corpuscular HGB Conc 34.4 g/dl (31.0-35.0); Mean Corpuscular Hemoglobin 32.9 pg (27.0-33.0); Mean Corpuscular Volume 95.8 fL (80.0-98.0); Mean Platelet Volume 10.6 fL (9.4-12.3); Monocytes Absolute Auto 0.6 X10*3/uL (0.1-1.2); Monocytes Percent Auto 7.2 % (2-11); Neutrophils Absolute Auto 5.5 x10*3/uL (2.0-8.3); Neutrophils Percent Auto 66.8 % (45-73); Platelet Count 233 X10*3/uL (160-400); Red Blood Count 4.01 X10*6/uL (4.20-5.50); Red Cell Distribution Width 12.4 % (11.0-16.0); White Blood Count 8.2 X10*3/uL (4.8-10.8)
[2023-04-10 19:09] LABS: Anion Gap 14 (12-20); Blood Urea Nitrogen 16 mg/dL (9-16); Calcium 9.4 mg/dL (8.4-10.2); Carbon Dioxide 27 mmol/L (22-29); Chloride 106 mmol/L (96-108); Creatinine Clr Calc Pharmacy 90.2; Estimated Glomerular Filt Rate > 60; Glucose Random 98 mg/dL (60-115); Potassium 4.5 mmol/L (3.3-5.1); Sodium 142 mmol/L (135-145)
[2023-04-10 19:18] LABS: Troponin-I High Sensitivity < 2.7 ng/L (<3.5-17.0)
== END 2023-04-10 20:08 | disposition still patient (30) ==
PROVIDERS: Registered Nurse Emergency; Emergency Provider Internal Medicine
DX: M54.12 Radiculopathy, cervical region (principal); M54.2 Cervicalgia; R07.89 Other chest pain; R51.9 Headache, unspecified; M25.512 Pain in left shoulder; Z87.891 Personal history of nicotine dependence
CPT/HCPCS: 36415; 72125; 80048; 84484; 85025; 93005; 99284

== ENCOUNTER 2023-05-21 09:11 | Outpatient (AMB) | payer MEDICAID, SELFPAY ==
[2023-05-21 09:16] VITALS: BP 130/74; PULSE 67; BMI 45.2
--- NOTE | 2023-05-21 09:16 | MHC.OFFVIS ---
Intake Vital Signs 05/21/23 09:16 Height 5 ft 2 in Weight 247 lb 5.738 oz BMI 45.2 BP 130/74 Blood Pressure Location Rt brachial Position Sitting Pulse 67 Pulse Source Pulse Oximeter Intake Visit Reasons: 4 month follow up Hub Lead Required: Yes Hub Lead Language: Appointment Clerk Name: francia gamble [id number] Allergies No Known Allergies [No Known Allergies*] Allergy (Verified 05/21/23 09:19) Medication List - Last Reconciled 05/21/23 by Fernanda Rose NP-C acetaminophen 500 mg PO Q6H PRN budesonide-formoterol 80-4.5 mcg/actuation (Symbicort) 2 puffs inhalation cyclobenzaprine 5 mg PO TID PRN lidocaine 5% 1 patch topical DAILY naproxen (Naprosyn) 500 mg PO BID HPI 4 month follow up HPI Details Elza is a 53-year-old female with past medical history of morbid obesity, asthma, chest lipoma, reported an unclear history of loss of consciousness requiring CPR when in [place] who recently underwent cardiac evaluation with echo and CTA of coronary arteries as part of preop evaluation for thoracic surgery. She now presents for follow up. Today she reports that she did undergo thoracic surgery for removal of a lipoma in her thoracic cavity. She has some numbness and tingling sensations near her left chest incision. She no longer has chest discomfort like she was describing prior to her surgery. She denies shortness of breath, palpitations, presyncope, syncope, PND, orthopnea or edema. She reports being active throughout the day. Takes meds as directed. Has no cardiac concerns. [facility] Medical History History of COVID-19 Morbid obesity Hypovitaminosis D Asthma Surgical History History of colonoscopy History of cholecystectomy History of bilateral tubal ligation History of Family History Mother Hypertension Diabetes Father Cancer Daughter No problems noted. 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 Sexual orientation: Straight/Heterosexual Gender identity: Female Female Reproductive History Menstrual Age of Menarche: 9 Review of Systems Const All systems reviewed & are unremarkable except as noted in HPI and below ENT Denies dizziness Card Denies chest pain, Denies chest pain at rest, Denies chest pain with activity, Denies rapid heart rate, Denies pedal edema, Denies edema, Denies leg edema, Denies lightheadedness, Denies palpitations, Denies dyspnea, Denies dyspnea on exertion and Denies orthopnea Resp Denies cough, Denies dyspnea and Denies dyspnea on exertion GI Denies hematochezia and Denies change in stool character Musc Denies abnormal gait, Denies limited range of motion, Denies muscle cramps, Denies muscle weakness, Denies numbness, Denies radiating pain into limb, Denies stiffness and Denies tingling Neuro Denies abnormal gait, Denies dizziness, Denies numbness and Denies tingling Endo Denies palpitations Physical Exam Vital Signs: Last Vital Signs Pulse 67 05/21/23 09:16 BP 130/74 05/21/23 09:16 BMI result Body Mass Index 45.2 Const General: cooperative, healthy appearing, comfortable and no acute distress Orientation/consciousness: patient oriented x3 Neck Neck: Yes normal visual inspection Resp Effort & Inspection: normal respiratory effort Auscultation: clear to auscultation bilaterally, no crackles, no rales, no rhonchi and no wheezes Cardio Jugular venous distension: no JVD Rate: regular rate Rhythm: regular rhythm Heart sounds: S1 normal heart sound present, S2 normal heart sound present, no murmurs and no rubs Skin General skin exam: no rashes or lesions noted Neuro General: patient oriented x3 Extrem General: Yes normal to inspection Psych Appearance: grossly normal Mental Status: mental status grossly normal Speech and movement: Normal speech and movement present Assessment & Plan Assessment & Plan (1) Precordial chest pain: Code(s): R07.2 - Precordial pain Plan: Prior reports Atypical sounding chest discomfort. She has no known history of [place], cardiomyopathy, arrhythmia. There is an unclear report of loss of consciousness requiring CPR while in [place] in the past . Spoke with her about this today and she states she was told it was from the lipoma in her chest. Cardiac evaluation through our office includes EKG done 12/26/2022 shows sinus rhythm with no acute ST or T-wave abnormalities. Echocardiogram done 01/10/2023 shows EF 60-65%, no regional wall motion abnormalities, RV, atriums normal size. A CTA of the coronary arteries was done on 02/23/2023 showing no coronary calcifications and no significant coronary artery disease. Reviewed these findings with her. Since last visit she did undergo thoracic surgery for removal of the lipoma. Her prior chest discomfort has since resolved. With her history CPR/ unclear events. Will arrange for cardiology follow-up in 1 year, sooner if needed. Emergency care if ever needed for any concerning symptoms (2) Chest mass: Comment: ([id number] mass left lung base - noted on 10/2022 CT done in [place]) Code(s): R22.2 - Localized swelling, mass and lump, trunk Plan: . Removed (3) Cardiovascular collapse: Code(s): R57.0 - Cardiogenic shock Plan: Reported history in [place] (4) Morbid obesity: Code(s): E66.01 - Morbid (severe) obesity due to excess calories Plan: Reports being very active throughout the day. Benefits of weight loss reviewed Coding Level of Care Code Est Pt Level 3 (29863) Diagnoses Precordial chest pain R07.2 Chest mass R22.2 Cardiovascular collapse R57.0 Morbid obesity E66.01 Time Spent (min) 24
== END 2023-05-21 09:58 | disposition home or self-care (01) ==
PROVIDERS: PCP Internal Medicine; Visit Provider Nurse Practitioner Family
DX: R07.2 Precordial pain (principal); R22.2 Localized swelling, mass and lump, trunk; R57.0 Cardiogenic shock; E66.01 Morbid (severe) obesity due to excess calories
CPT/HCPCS: 99213

== ENCOUNTER → 2023-05-21 09:11 | Outpatient (BNVA) | payer MEDICAID, SELFPAY | PROVIDERS: PCP Internal Medicine; Visit Provider Nurse Practitioner Family | DX: R07.2 Precordial pain (principal); R22.2 Localized swelling, mass and lump, trunk; E66.01 Morbid (severe) obesity due to excess calories; Z68.42 Body mass index [BMI] 45.0-49.9, adult; I25.2 Old myocardial infarction | CPT/HCPCS: 99212 ==

== ENCOUNTER 2023-07-23 15:16 | Emergency (ER) | payer MEDICAID, SELFPAY ==
--- NOTE | 2023-07-23 | ECG_ITS ---
Test Reason : cp Blood Pressure : / mmHG Vent. Rate : 059 BPM Atrial Rate : 059 BPM P-R Int : 164 ms QRS Dur : 072 ms QT Int : 406 ms P-R-T Axes : 046 029 034 degrees QTc Int : 401 ms Sinus bradycardia Otherwise normal ECG When compared with ECG of 10-APR-2023 16:14, Criteria for Septal infarct are no longer Present Referred By: Generic ED Physician Electronically Signed By:CALLUM DEAL MD
--- NOTE | ~2023-07-23 | XR_ITS ---
EXAMINATION: XR CHEST CLINICAL INFORMATION: Chest pain. COMPARISON: Chest radiograph 12/26/2022. TECHNIQUE: PA view of the chest was obtained. FINDINGS: Normal heart size. Unchanged central peribronchial cuffing. No new focal airspace opacities, pleural effusion or pneumothorax. No acute osseous findings. Visualized upper abdomen is within normal limits. XR/XR chest 1V IMPRESSION: Unchanged central peribronchial cuffing which could be seen in the setting of asthma, bronchitis, reactive airways disease or atypical infections.
--- NOTE | ~2023-07-23 | CT_ITS ---
EXAMINATION: CT ANGIOGRAM OF THE CHEST WITH AND WITHOUT CONTRAST (CT PULMONARY ANGIOGRAM FOR PE) CLINICAL INFORMATION: Chest pain COMPARISON: Radiographs dated 07/23/[address] abdomen pelvis dated 11/09/2021 TECHNIQUE: Prior to contrast administration, noncontrast localization images were obtained. Subsequently, multidetector volumetric imaging was performed from the thoracic inlet to below the diaphragms following the administration of 65 mL Omnipaque 350 intravenous contrast. No contrast reaction reported Sagittal, coronal, and MIP oblique sagittal reformatted images were obtained on the CT workstation, uploaded to PACS, and reviewed. This CT examination was performed using dose optimization techniques as appropriate, variously including the following: *Automated exposure control *Adjustment of mA and/or kV according to patient size (this includes techniques or standardized protocols for targeted exams where dose is matched to indication/reason for exam; i.e. extremities or head) *Use of iterative reconstruction technique Total exam dose-length product 354 mGy-cm FINDINGS: QUALITY OF STUDY/CONTRAST BOLUS: Satisfactory. PULMONARY ARTERIES: No pulmonary emboli. THORACIC AORTA: No aneurysm. LUNG: No focal consolidation, nodules or masses. Linear atelectasis or pleural parenchymal scarring are present in the right lung base. PLEURA: No pleural effusion or pneumothorax. The large fat attenuation lesion at the left hemidiaphragm is no longer identified, presumably surgically absent. MEDIASTINUM: Normal heart size. Small hiatal hernia. No pericardial effusion. No hilar or mediastinal lymphadenopathy. No evidence of septal bowing or right heart strain. CORONARY ARTERY CALCIFICATION: None visualized on this study. CHEST WALL/AXILLA: No axillary or internal mammary lymphadenopathy. OSSEOUS STRUCTURES: Eayo-xk-nupvusmt multilevel degenerative spondylosis in the thoracic spine. No acute fractures. No acute rib fractures are identified. UPPER ABDOMEN: Status post cholecystectomy. No acute findings in the upper abdomen. No reflux of contrast into the hepatic veins to suggest elevated right heart pressures. CT/CT angio chest PE protocol IMPRESSION: 1. No acute pulmonary findings. No evidence of pulmonary emboli. 2. Small hiatal hernia. 3. Kwdm-[id number]-nksnyeut multilevel degenerative spondylosis in the thoracic spine. VTE: negative.
[2023-07-23 15:42] VITALS: BP 127/71; PULSE 63; RESP 18; TEMP 36; O2SAT 98; BMI 49.4
--- NOTE | 2023-07-23 15:43 | ED.GENADULT ---
HPI - General Adult General Chief complaint: Chest Pain Stated complaint: Chest pain - recent surgery Time Seen by Provider: 07/23/23 23:56 Related Data Home Medications Medication Instructions Recorded Confirmed budesonide-formoterol HFA 80 2 puff inhalation 12/21/22 05/21/23 mcg-4.5 mcg/actuation aerosol inhaler (Symbicort) acetaminophen 500 mg tablet 500 mg PO Q6H PRN mild pain 05/21/23 05/21/23 Previous Rx's Medication Instructions Recorded naproxen 500 mg tablet (Naprosyn) 500 mg PO BID #20 tabs 12/26/22 cyclobenzaprine 5 mg tablet 5 mg PO TID PRN muscle spasm #10 04/10/23 tabs lidocaine 5 % topical patch 1 patch topical DAILY #15 ea 04/10/23 Allergies Allergy/AdvReac Type Severity Reaction Status Date / Time No Known Allergies Allergy Verified 07/23/23 15:46 [No Known Allergies*] PMFSH Past Medical History Onset Date is defined in the Problem List Problems that require an onset date and time if occurred within 24 hrs of arrival to the ED Aortic Dissection and Rupture; Neurologic impairment; Cardiopulmonary Arrest; Endotracheal Intubation; Insertion or Replacement of Mechanical Circulatory Assist Device Medical History History of COVID-19 Morbid obesity Hypovitaminosis D Asthma Surgical History History of colonoscopy History of cholecystectomy History of bilateral tubal ligation History of Family History Family History Mother Hypertension Diabetes Father Cancer Daughter No problems noted. 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 Patient is a 53 year old assigned female at presenting to the emergency department with chest pain. Patient has a history of having a soft tissue mass removed from the left side of her chest in April of 2023. Detailed physical exam and review of systems are deferred to the hide trimmer. Labs, imaging, and swabs ordered. Patient placed back in the waiting room pending room availability and results. Patient evaluated and dispositioned by Dr. Emerson. Please refer to his note of the same date. Medications Administered Discontinued Medications Generic Name Dose Route Start Last Admin Trade Name Freq PRN Reason Stop Dose Admin Iohexol 65 ml 07/24/23 01:01 07/24/23 01:01 Iohexol 350 Mg/Ml 100 Ml Infus..Btl IV 07/24/23 01:02 65 ml ONCE ONE Administration Medical Decision Making Lab Data 07/23/23 15:41 07/23/23 15:41 Labs: Lab Results 07/23/23 07/23/23 07/24/23 Range/Units 15:41 16:15 01:03 WBC 7.9 (4.8-10.8) X10*3/uL RBC 4.37 (4.20-5.50) X10*6/uL Hgb 13.4 (12.0-16.0) g/dl Hct 41.2 (37.0-47.0) % MCV 94.3 (80.0-98.0) fL MCH 30.7 (27.0-33.0) pg MCHC 32.5 (31.0-35.0) g/dl RDW 12.4 (11.0-16.0) % Plt Count 250 (160-400) X10*3/uL MPV 10.4 (9.4-12.3) fL Immature Gran % (Auto) 0.3 (0.0-0.4) % Neut % (Auto) 63.5 (45-73) % Lymph % (Auto) 25.4 (20-40) % [place] % (Auto) 8.0 (2-11) % Eos % (Auto) 2.4 (0-4) % Baso % (Auto) 0.4 (0-2) % Lymph # (Auto) 2.0 (1.2-4.9) X10*3/uL [place] # (Auto) 0.6 (0.1-1.2) X10*3/uL Eos # (Auto) 0.2 (0.0-0.4) X10*3/uL Baso # (Auto) 0.0 (0.0-0.2) X10*3/uL Abs Immat Gran (auto) 0.02 (0.00-0.03) X10*3/uL Absolute Neuts (auto) 5.0 (2.0-8.3) x10*3/uL Absolute Nucleated RBC 0.000 (0.0-0.012) X10*3/uL Nucleated RBC % (auto) 0.0 (0.0-0.2) /100WBC Sodium 141 (135-145) mmol/L Potassium 3.9 (3.3-5.1) mmol/L Chloride 108 (96-108) mmol/L Carbon Dioxide 27 (22-29) mmol/L Anion Gap 10 L (12-20) BUN 14 (9-16) mg/dL Creatinine 0.80 (0.5-1.4) mg/dL Estim Creat Clear Calc 93.9 Estimated GFR > 60 Random Glucose 97 (60-115) mg/dL Calcium 9.6 (8.4-10.2) mg/dL Magnesium 2.1 (1.6-2.6) mg/dL Total Bilirubin 0.2 (0.0-1.0) mg/dL AST 16 (5-31) U/L ALT 17 (0-31) U/L Alkaline Phosphatase 92 (39-117) U/L Troponin I High Sens < 2.7 < 2.7 (<3.5-17.0) ng/L Total Protein 7.5 (6.5-8.0) g/dL Albumin 4.1 (3.5-5.0) g/dL Lipase 28 (8-78) U/L Influenza Type A (PCR) NEGATIVE (Negative) Influenza Type B (PCR) NEGATIVE (Negative) RSV RNA Qual (PCR) NEGATIVE (Negative) SARS-CoV-2 RNA (RT-PCR) NEGATIVE (Negative) Discharge Plan Discharge Clinical Impression: Chest pain Patient Disposition: Home, Self-Care Instructions: Chest Pain (DC) Prescriptions: No Action naproxen [Naprosyn] 500 mg tablet 500 mg PO BID Qty: 20 0RF cyclobenzaprine 5 mg tablet 5 mg PO TID PRN (Reason: muscle spasm) Qty: 10 0RF lidocaine 5 % adhesive patch,medicated 1 patch topical DAILY Qty: 15 0RF Rx Instructions: leave on most painful area for up to 12 hrs budesonide-formoterol [Symbicort] 80-4.5 mcg/actuation HFA aerosol inhaler 2 puff inhalation acetaminophen 500 mg tablet 500 mg PO Q6H PRN (Reason: mild pain) Referrals: Judy Galvan MD [Primary Care Provider] - 07/26/23 Vineet Shipman MD [Physician] - 07/26/23 Interventions: ED Discharge Assessment Last Done: 07/24/23 03:17 Discharge Date/Time: 07/24/23 03:18
[2023-07-23 15:45] LABS: MANUAL DIFF FLAG NO
[2023-07-23 15:49] LABS: Basophils Percent Auto 0.4 % (0-2); Eosinophils Absolute Auto 0.2 X10*3/uL (0.0-0.4); Eosinophils Percent Auto 2.4 % (0-4); Hematocrit 41.2 % (37.0-47.0); Hemoglobin 13.4 g/dl (12.0-16.0); Imm Gran Abs Auto 0.02 X10*3/uL (0.00-0.03); Imm Gran Pct Auto 0.3 % (0.0-0.4); Lymphocytes Percent Auto 25.4 % (20-40); Mean Corpuscular HGB Conc 32.5 g/dl (31.0-35.0); Mean Corpuscular Hemoglobin 30.7 pg (27.0-33.0); Mean Corpuscular Volume 94.3 fL (80.0-98.0); Mean Platelet Volume 10.4 fL (9.4-12.3); Monocytes Absolute Auto 0.6 X10*3/uL (0.1-1.2); Neutrophils Percent Auto 63.5 % (45-73); Platelet Count 250 X10*3/uL (160-400); Red Blood Count 4.37 X10*6/uL (4.20-5.50); Red Cell Distribution Width 12.4 % (11.0-16.0); White Blood Count 7.9 X10*3/uL (4.8-10.8)
[2023-07-23 16:00] LABS: Alanine Aminotransferase 17 U/L (0-31); Albumin Level 4.1 g/dL (3.5-5.0); Alkaline Phosphatase 92 U/L (39-117); Anion Gap 10 (12-20); Aspartate Amino Transferase 16 U/L (5-31); Bilirubin Total 0.2 mg/dL (0.0-1.0); Blood Urea Nitrogen 14 mg/dL (9-16); Calcium 9.6 mg/dL (8.4-10.2); Carbon Dioxide 27 mmol/L (22-29); Chloride 108 mmol/L (96-108); Creatinine Clr Calc Pharmacy 93.9; Estimated Glomerular Filt Rate > 60; Glucose Random 97 mg/dL (60-115); Magnesium 2.1 mg/dL (1.6-2.6); Potassium 3.9 mmol/L (3.3-5.1); Sodium 141 mmol/L (135-145); Total Protein 7.5 g/dL (6.5-8.0)
[2023-07-23 16:08] LABS: Troponin-I High Sensitivity < 2.7 ng/L (<3.5-17.0)
[2023-07-23 17:41] LABS: Influenza A PCR NEGATIVE (Negative); Influenza B PCR NEGATIVE (Negative); Resp Syncy Virus RNA Qual PCR NEGATIVE (Negative); SARS COV2 PCR INHOUSE NEGATIVE (Negative)
[2023-07-24 00:02] VITALS: BP 124/64; PULSE 61; RESP 18; TEMP 36.7; O2SAT 98
--- NOTE | 2023-07-24 00:49 | PC.NURSE ---
IV established. Pt ambulating to CT.
[2023-07-24] MEDS: iohexoL 350 MG/ML 100 ML INFUS..BTL 65 ML IV (01:01)
[2023-07-24 01:35] LABS: Troponin-I High Sensitivity < 2.7 ng/L (<3.5-17.0)
[2023-07-24 02:00] VITALS: BP 132/69; PULSE 57; RESP 18; TEMP 36.8; O2SAT 97
--- NOTE | 2023-07-24 02:16 | MHC.EDTECH ---
Patient ambulated to the bathroom with a steady gait, hourly rounds and vitals completed and call gustafson within reach
[2023-07-24 02:37] LABS: Lipase 28 U/L (8-78)
--- NOTE | 2023-07-24 03:00 | ED.CHESTPAIN ---
HPI - Chest Pain General Chief Complaint: Chest Pain Stated Complaint: Chest pain - recent surgery Time Seen by Provider: 07/23/23 23:56 History of Present Illness HPI narrative: Patient is a 53-year-old female with a history of asthma, fatty liver, sciatica has chest pain for the last 3 days continuous. Patient states it is under her left breast and substernal area. Denies any nausea vomiting diarrhea. Denies any dizziness. Denies any shortness of breath. It is worse with deep breath. No coughing no congestion. No history of Cell of sudden in the family. Patient is from home. Related Data Home Medications Medication Instructions Recorded Confirmed budesonide-formoterol HFA 80 2 puff inhalation 12/21/22 05/21/23 mcg-4.5 mcg/actuation aerosol inhaler (Symbicort) acetaminophen 500 mg tablet 500 mg PO Q6H PRN mild pain 05/21/23 05/21/23 Previous Rx's Medication Instructions Recorded naproxen 500 mg tablet (Naprosyn) 500 mg PO BID #20 tabs 12/26/22 cyclobenzaprine 5 mg tablet 5 mg PO TID PRN muscle spasm #10 04/10/23 tabs lidocaine 5 % topical patch 1 patch topical DAILY #15 ea 04/10/23 Allergies Allergy/AdvReac Type Severity Reaction Status Date / Time No Known Allergies Allergy Verified 07/23/23 15:46 [No Known Allergies*] Review of Systems Review of Systems: Positive left-sided chest pain Yes all other systems are reviewed and are negative PMFSH Past Medical History Onset Date is defined in the Problem List Problems that require an onset date and time if occurred within 24 hrs of arrival to the ED Aortic Dissection and Rupture; Neurologic impairment; Cardiopulmonary Arrest; Endotracheal Intubation; Insertion or Replacement of Mechanical Circulatory Assist Device Medical History History of COVID-19 Morbid obesity Hypovitaminosis D Asthma Surgical History History of colonoscopy History of cholecystectomy History of bilateral tubal ligation History of Family History Family History Mother Hypertension Diabetes Father Cancer Daughter No problems noted. 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 Oriented X3. No acute distress. Eyes: Pupils equal, round and reactive to light. ENT: Pharynx normal. Neck: Normal inspection. Neck supple. No lymph nodes noted. No crepitus CVS: Normal heart rate and rhythm. Pulses normal. Normal S1 and S2 Respiratory: No respiratory distress. Breath sounds normal. No Wheezing. No rales Abdomen: Soft and nontender. No rigidity. No distention. good BS x4 Skin: Skin warm and dry. Normal skin color. Normal skin turgor. Extremities: No lower extremity edema. Neurovascular intact to all extremities. No Lacerations. No Rash Neuro: Oriented X 3. No motor deficit. No sensory deficit. Moving all extermities. No slurred speech Medications Administered Discontinued Medications Generic Name Dose Route Start Last Admin Trade Name Freq PRN Reason Stop Dose Admin Iohexol 65 ml 07/24/23 01:01 07/24/23 01:01 Iohexol 350 Mg/Ml 100 Ml Infus..Btl IV 07/24/23 01:02 65 ml ONCE ONE Administration Medical Decision Making Medical Decision Making MDM Narrative: Well-appearing no acute distress. Patient's troponin x2 sets were negative in the setting of having continuous chest pain for the last 3 days. EKG that is normal. Atypical chest pain. Patient's heart score is less than 3. Will have patient follow-up on an outpatient basis with Cardiology for her chest pain. Patient claims she has chest pain worse when she takes a deep breath sometimes worse when she coughs slightly. S was done. There is no evidence of PE. There is no evidence for pneumonia. There is no evidence for pneumothorax. Patient's COVID flu RSV were all negative. Patient's LFTs are normal lipase is normal no evidence for biliary disease. Will discharge patient home. Currently in stable condition. Differential Diagnosis Differential Diagnoses: The differential diagnosis associated with the presentation includes Pneumonia, pneumothorax, ACS, flu, RSV, COVID, PE, dissection Admission/Observation Consideration of admission/observation: Escalation of care including admission/observation considered No need for admission as patient's symptom improved Lab Data MDM Lab Attestation statement: I reviewed the patient's lab results. 07/23/23 15:41 07/23/23 15:41 Labs: Lab Results 07/23/23 07/23/23 07/24/23 Range/Units 15:41 16:15 01:03 WBC 7.9 (4.8-10.8) X10*3/uL RBC 4.37 (4.20-5.50) X10*6/uL Hgb 13.4 (12.0-16.0) g/dl Hct 41.2 (37.0-47.0) % MCV 94.3 (80.0-98.0) fL MCH 30.7 (27.0-33.0) pg MCHC 32.5 (31.0-35.0) g/dl RDW 12.4 (11.0-16.0) % Plt Count 250 (160-400) X10*3/uL MPV 10.4 (9.4-12.3) fL Immature Gran % (Auto) 0.3 (0.0-0.4) % Neut % (Auto) 63.5 (45-73) % Lymph % (Auto) 25.4 (20-40) % [place] % (Auto) 8.0 (2-11) % Eos % (Auto) 2.4 (0-4) % Baso % (Auto) 0.4 (0-2) % Lymph # (Auto) 2.0 (1.2-4.9) X10*3/uL [place] # (Auto) 0.6 (0.1-1.2) X10*3/uL Eos # (Auto) 0.2 (0.0-0.4) X10*3/uL Baso # (Auto) 0.0 (0.0-0.2) X10*3/uL Abs Immat Gran (auto) 0.02 (0.00-0.03) X10*3/uL Absolute Neuts (auto) 5.0 (2.0-8.3) x10*3/uL Absolute Nucleated RBC 0.000 (0.0-0.012) X10*3/uL Nucleated RBC % (auto) 0.0 (0.0-0.2) /100WBC Sodium 141 (135-145) mmol/L Potassium 3.9 (3.3-5.1) mmol/L Chloride 108 (96-108) mmol/L Carbon Dioxide 27 (22-29) mmol/L Anion Gap 10 L (12-20) BUN 14 (9-16) mg/dL Creatinine 0.80 (0.5-1.4) mg/dL Estim Creat Clear Calc 93.9 Estimated GFR > 60 Random Glucose 97 (60-115) mg/dL Calcium 9.6 (8.4-10.2) mg/dL Magnesium 2.1 (1.6-2.6) mg/dL Total Bilirubin 0.2 (0.0-1.0) mg/dL AST 16 (5-31) U/L ALT 17 (0-31) U/L Alkaline Phosphatase 92 (39-117) U/L Troponin I High Sens < 2.7 < 2.7 (<3.5-17.0) ng/L Total Protein 7.5 (6.5-8.0) g/dL Albumin 4.1 (3.5-5.0) g/dL Lipase 28 (8-78) U/L Influenza Type A (PCR) NEGATIVE (Negative) Influenza Type B (PCR) NEGATIVE (Negative) RSV RNA Qual (PCR) NEGATIVE (Negative) SARS-CoV-2 RNA (RT-PCR) NEGATIVE (Negative) Independent Interpretation I performed an independent interpretation of an: EKG (Sinus heart rate is 70 TN QRS QTC within normal limits.) and CT Scan (CTA of the chest was grossly negative for PE) Radiology Impression Discussion of test interpretation with radiology: I have reviewed the radiologist's reading. External Record Review External record reviewed: Inpatient record Chronic Conditions Patient?s care impacted by: Hypertension Discharge Plan Discharge Clinical Impression: Chest pain Patient Disposition: Home, Self-Care Instructions: Chest Pain (DC) Prescriptions: No Action naproxen [Naprosyn] 500 mg tablet 500 mg PO BID Qty: 20 0RF cyclobenzaprine 5 mg tablet 5 mg PO TID PRN (Reason: muscle spasm) Qty: 10 0RF lidocaine 5 % adhesive patch,medicated 1 patch topical DAILY Qty: 15 0RF Rx Instructions: leave on most painful area for up to 12 hrs budesonide-formoterol [Symbicort] 80-4.5 mcg/actuation HFA aerosol inhaler 2 puff inhalation acetaminophen 500 mg tablet 500 mg PO Q6H PRN (Reason: mild pain) Referrals: Judy Galvan MD [Primary Care Provider] - 07/26/23 Vineet Shipman MD [Physician] - 07/26/23
--- NOTE | 2023-07-24 03:17 | PC.NURSE ---
MD at bedside explaining results and plan for discharge.
== END 2023-07-24 03:18 | disposition home or self-care (01) ==
PROVIDERS: Physician Assistant Medical; Emergency Provider Emergency Medicine Emergency Medical Services; PCP Internal Medicine
DX: R07.89 Other chest pain (principal); K76.0 Fatty (change of) liver, not elsewhere classified; Z20.828 Contact with and (suspected) exposure to other viral communicable diseases; Z11.52 Encounter for screening for COVID-19; Z87.891 Personal history of nicotine dependence; Z79.899 Other long term (current) drug therapy
CPT/HCPCS: 0241U; 36415; 71045; 71275; 80053; 83690; 83735; 84484; 85025; 93005; 99284; Q9967

== ENCOUNTER → 2023-07-23 15:36 | Outpatient (BNV) | payer MEDICAID, SELFPAY | PROVIDERS: PCP Internal Medicine; Visit Provider Internal Medicine Cardiovascular Disease | DX: R00.1 Bradycardia, unspecified (principal); R07.9 Chest pain, unspecified | CPT/HCPCS: 93010 ==

== ENCOUNTER 2023-07-27 11:07 | Outpatient (REF) | payer MEDICAID, SELFPAY | END 2023-07-27 11:08 | disposition home or self-care (01) | LOC: HO.MAMMO 11:07 | PROVIDERS: PCP Internal Medicine; Visit Provider Internal Medicine | DX: Z12.31 Encounter for screening mammogram for malignant neoplasm of breast (principal) | CPT/HCPCS: 77063; 77067 ==

== ENCOUNTER → 2023-07-27 11:15 | Outpatient (BNV) | payer MEDICAID, SELFPAY | PROVIDERS: PCP Internal Medicine; Visit Provider Radiology Diagnostic Radiology | DX: Z12.31 Encounter for screening mammogram for malignant neoplasm of breast (principal) | CPT/HCPCS: 77063; 77067 ==

== ENCOUNTER 2023-08-16 12:52 | Outpatient (AMB) | payer MEDICAID, SELFPAY ==
--- NOTE | 2023-08-16 12:53 | A.OFFVIS_ITS ---
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 Complaining of vaginal discharge with no irritation/itching or foul odor Last Pap/HPV was negative in 08/05 Last Mammogram was BI-RADS 1 in 08/08 Last Colonoscopy was done in 12/03, the recommendation was to repeat in 10 years [facility] Medical History Lipoma of lung History of COVID-19 Morbid obesity Hypovitaminosis D Asthma Surgical History History of colonoscopy History of cholecystectomy History of bilateral tubal ligation History of Family History Mother Hypertension Diabetes Father Cancer Daughter No problems noted. 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 Sexual orientation: Straight/Heterosexual Gender identity: Female Female Reproductive History Menstrual Age of Menarche: 9 control method: permanent sterilization Total pregnancies: 3 Full term: 3 Number of Living Children: 3 Multiple births: 1 Date of last pap smear: 07/30/20 (endocervical component present) Date of Mammogram: 07/27/23 Review of Systems Const All systems reviewed & are unremarkable except as noted in HPI and below Card Reports as per HPI Resp Reports as per HPI GI Reports as per HPI and Reports no additional complaints Reports as per HPI Physical Exam Vital Signs: BMI result Body Mass Index 46.3 Const General: cooperative, healthy appearing and comfortable Chest Chest palpation & inspection: normal inspection of the chest and normal palpation of entire chest wall Breast/axilla inspection: normal inspection of the breasts and normal inspection of the axillae Breast/axilla palpation: normal palpation of the breasts, normal palpation of the axillae and no axillary lymphadenopathy Resp Effort & Inspection: normal respiratory effort Auscultation: clear to auscultation bilaterally Percussion: percussion normal Cardio Palpation: normal PMI Rate: regular rate Rhythm: regular rhythm Heart sounds: no murmurs and no rubs Peripheral pulses: Peripheral pulses 2+ throughout GI Inspection: Yes normal to inspection Palpation (GI): Soft to palpation, nontender, no guarding, not rigid and No hepatosplenomegaly present Percussion: Yes normal to percussion Auscultation: normal bowel sounds Rectal Exam - Female: deferred General: Yes bladder normal to palpation External Female Exam: No lesion Speculum Exam - Vagina: normal appearance of the vagina, normal palpation, normal vaginal discharge and not erythematous Speculum Exam - Cervix: normal appearance of the cervix and normal palpation Bimanual exam- vagina & uterus: normal bimanual exam, normal palpation, uterine size normal, bladder normal to palpation, consistency normal and normal palpation Bimanual Exam- Adnexa, other: normal adnexae, no masses and no tenderness Assessment & Plan Assessment & Plan (1) Well woman exam: Code(s): Z01.419 - Encounter for gynecological examination (general) (routine) without abnormal findings Plan: Co testing not indicated this year. Counseled the patient about the recommended dietary allowance of 1200 mg of Calcium & 600 IU of vitamin D. Instructions given to patient to schedule next screen Mammogram in 08/09. The patient was instructed to perform monthly self-breast exams and schedule annual exam in a year. All questions answered and the patient verbalized understanding. (2) Vaginal discharge: Code(s): N89.8 - Other specified noninflammatory disorders of vagina Plan: GC/CT with BV panel collected, will check the results and treat accordingly. Coding Level of Care Code Est Pt Prev Care 40-64y(62303) Diagnoses Well woman exam Z01.419 Vaginal discharge N89.8
[2023-08-16 12:55] VITALS: BMI 46.3
== END 2023-08-16 13:13 | disposition home or self-care (01) ==
LOC: HO.HWS 12:52
PROVIDERS: PCP Internal Medicine; Visit Provider Obstetrics & Gynecology
DX: Z01.419 Encounter for gynecological examination (general) (routine) without abnormal findings (principal); N89.8 Other specified noninflammatory disorders of vagina
CPT/HCPCS: 99396

== ENCOUNTER 2023-08-16 12:52 | Outpatient (REF) | payer MEDICAID, SELFPAY ==
[2023-08-17 02:41] LABS: CT PCR NOT DETECTED (Not Detect.); NG PCR NOT DETECTED (Not Detect.)
[2023-08-17 13:59] LABS: BV Int Neg Control Negative (Negative); BV Int Pos Control Positive (Positive)
== END 2023-08-16 12:53 | disposition home or self-care (01) ==
LOC: HO.LNP 12:52
PROVIDERS: PCP Internal Medicine; Visit Provider Obstetrics & Gynecology
DX: Z01.419 Encounter for gynecological examination (general) (routine) without abnormal findings (principal); N89.8 Other specified noninflammatory disorders of vagina
CPT/HCPCS: 0353U; 87480; 87510; 87660; 99396

== ENCOUNTER 2023-08-22 13:32 | Outpatient (REF) | payer MEDICAID, SELFPAY ==
[2023-08-23 08:10] LABS: HBsAGNum1 0.26 S/CO (0.00-0.99); Hepatitis B Surface Antigen Negative (Negative); ~HepC Num1 0.06 S/CO (0.00-0.79); ~Hepatitis C Antibody Nonreactive (Nonreactive)
[2023-08-23 08:21] LABS: Syphilis Screen Nonreactive (Nonreactive)
[2023-08-23 08:31] LABS: HIV AB/AG Nonreactive (Nonreactive); HIV Num 1 0.05 S/CO (0.00-0.99)
== END 2023-08-22 13:33 | disposition home or self-care (01) ==
LOC: HO.LAB 13:32
PROVIDERS: Visit Provider Obstetrics & Gynecology
DX: N76.0 Acute vaginitis (principal); B96.89 Other specified bacterial agents as the cause of diseases classified elsewhere
CPT/HCPCS: 36415; 86780; 86803; 87340; 87389

== ENCOUNTER 2023-10-05 09:15 | Outpatient (REF) | payer MEDICAID, SELFPAY ==
--- NOTE | ~2023-10-05 | FL_ITS ---
EXAMINATION: XR FLUOROSCOPY UPPER GI WITH AIR CLINICAL INFORMATION: Epigastric pain COMPARISON: May 1722 TECHNIQUE: Fluoroscopic air contrast upper GI examination was performed utilizing standard techniques with thin and thick barium and effervescent granules. Numerous spot images were obtained. FINDINGS: Lateral cine images of the oropharynx and hypopharynx demonstrate normal swallow mechanism with normal epiglottic inversion and soft palate elevation. No tracheal penetration, glottic or subglottic aspiration identified. No nasopharyngeal reflux present. Hypopharyngeal structures appear normal without evidence of mass or diverticulum. There was no significant cricopharyngeal achalasia. Dual and single contrast images of the esophagus demonstrate normal caliber, contour, and mucosal pattern. No evidence of stricture, mass, or ulcerations identified. Esophageal peristalsis was normal. A small type I hiatal hernia is present. Gastroesophageal reflux is seen up to the midesophagus. Dual contrast and single contrast images of the stomach demonstrated a normal contour. There are multiple small areas of contrast pooling in the fundus and body the stomach that may represents small superficial aphthous ulcers. No masses are seen. No definite rugal fold thickening. Contrast freely passed into the gastric antrum and duodenal bulb without delay. Single and air-contrast images of the duodenal bulb demonstrate no abnormality. The duodenal sweep has a normal appearance, course, and mucosal fold appearance. No malrotation. The imaged proximal jejunum has a normal fold pattern and caliber. Cholecystectomy clips are noted. FLUOROSCOPY TIME: 3 minutes 38 seconds Number of Spot Images: 13 Number of Cine: 11 DOSE AREA PRODUCT: 1299 uGy-m2 (microgray-meter squared) FL/FL upper GI series IMPRESSION: 1. Small type I hiatal hernia. 2. Gastroesophageal reflux to the mid esophageal level. 3. A few scattered foci of contrast pooling within the fundus and body of the stomach, suggestive of small aphthous ulcers. These findings can be seen with erosive gastritis/hyperacidity. This procedure was performed by Aung Dean PA-C, and supervised by Dr. Rodriguez
== END 2023-10-05 09:16 | disposition home or self-care (01) ==
LOC: HO.XRAY 09:15
PROVIDERS: PCP Internal Medicine; Visit Provider Internal Medicine
DX: R10.13 Epigastric pain (principal); K21.9 Gastro-esophageal reflux disease without esophagitis
CPT/HCPCS: 74240

== ENCOUNTER → 2023-10-05 09:20 | Outpatient (BNV) | payer MEDICAID, SELFPAY | PROVIDERS: PCP Internal Medicine; Visit Provider Physician Assistant Surgical | DX: R10.13 Epigastric pain (principal) | CPT/HCPCS: 74246 ==

== ENCOUNTER 2023-10-14 17:11 | Emergency (ER) | payer MEDICAID, SELFPAY ==
--- NOTE | ~2023-10-14 | XR_ITS ---
EXAMINATION: LUMBAR SPINE AND RIGHT HIP CLINICAL INFORMATION: Pain COMPARISON: CT abdomen pelvis 11/09/2021 TECHNIQUE: Single view pelvis with 2 additional views right hip, 3 views lumbosacral spine FINDINGS: The pelvis and right hip appear normal. Some minimal degenerative changes are present in the lumbar spine with predominantly endplate changes with some small osteophytes. There is probably some minimal narrowing at a few levels. Similar changes could be seen on the CT scan from 11/10/2021 when vacuum phenomenon was noted in the L5-S1 disc. No acute fractures. More marked degenerative changes are present in the lower thoracic spine. XR/XR hip RT min 2V IMPRESSION: No acute finding. Degenerative changes in the lumbar spine and lower thoracic spine as described above.
--- NOTE | ~2023-10-14 | XR_ITS ---
EXAMINATION: LUMBAR SPINE AND RIGHT HIP CLINICAL INFORMATION: Pain COMPARISON: CT abdomen pelvis 11/09/2021 TECHNIQUE: Single view pelvis with 2 additional views right hip, 3 views lumbosacral spine FINDINGS: The pelvis and right hip appear normal. Some minimal degenerative changes are present in the lumbar spine with predominantly endplate changes with some small osteophytes. There is probably some minimal narrowing at a few levels. Similar changes could be seen on the CT scan from 11/10/2021 when vacuum phenomenon was noted in the L5-S1 disc. No acute fractures. More marked degenerative changes are present in the lower thoracic spine. XR/XR lumbar spine 2-3V IMPRESSION: No acute finding. Degenerative changes in the lumbar spine and lower thoracic spine as described above.
[2023-10-14 17:39] VITALS: BP 129/68; PULSE 84; RESP 16; TEMP 36.4; O2SAT 98; BMI 45.9
--- NOTE | 2023-10-14 17:39 | ED.BACK ---
HPI - Back Pain/Injury General Chief Complaint: Back Pain/Injury Stated Complaint: L lower back, sciatic pain Time Seen by Provider: 10/14/23 19:44 Source: patient Mode of arrival: ambulatory Limitations: no limitations History of Present Illness HPI Narrative: Patient is a 53-year-old female who presents emergency department for evaluation of right lower back radiating to the left lower leg down to the foot x1 week. 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 Reports that she trialed Flexeril and lidocaine patches that she has been prescribed in the past by her primary care provider for different back pain. Pain radiates to the right groin. Denies recent fevers, chills, burning with micturition, urinary frequency/urgency/hesitancy, bladder or bowel dysfunction, numbness or tingling of the perineum or bilateral legs. Denies any recent surgical procedures, any known immune compromising conditions, personal history of cancer, or IV drug usage. MD elicited complaint: back pain Related Data Home Medications Medication Instructions Recorded Confirmed budesonide-formoterol HFA 80 2 puff inhalation 12/21/22 05/21/23 mcg-4.5 mcg/actuation aerosol inhaler (Symbicort) acetaminophen 500 mg tablet 500 mg PO Q6H PRN mild pain 05/21/23 05/21/23 albuterol sulfate 2.5 mg/3 mL mg inhalation TID PRN wheezing 08/16/23 (0.083 %) solution for nebulization albuterol sulfate 90 mcg/actuation 2 puff inhalation Q4-6H PRN 08/16/23 aerosol inhaler (Ventolin HFA) omeprazole 20 mg capsule,delayed 20 mg PO QAM 08/16/23 release Previous Rx's Medication Instructions Recorded naproxen 500 mg tablet (Naprosyn) 500 mg PO BID #20 tabs 12/26/22 cyclobenzaprine 5 mg tablet 5 mg PO TID PRN muscle spasm #10 04/10/23 tabs lidocaine 5 % topical patch 1 patch topical DAILY #15 ea 04/10/23 metronidazole 500 mg tablet 500 mg PO BID 7 days #14 tabs 08/20/23 cefuroxime axetil 250 mg tablet 250 mg PO BID 7 days #14 tabs 10/14/23 ketorolac 10 mg tablet 10 mg PO TID PRN pain 5 days #15 10/14/23 tabs Allergies Allergy/AdvReac Type Severity Reaction Status Date / Time No Known Allergies Allergy Verified 10/14/23 17:38 [No Known Allergies*] Review of Systems Review of Systems: Yes all other systems are reviewed and are negative FOR[facility]LY [facility] Past Medical History Attestation statement: The following information was validated with the patient. Source: old records reviewed Medical History Lipoma of lung History of COVID-19 Morbid obesity Hypovitaminosis D Asthma Surgical History History of colonoscopy History of cholecystectomy History of bilateral tubal ligation History of Family History Family History Mother Hypertension Diabetes Father Cancer Daughter No problems noted. 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 No acute distress.?Normal affect. Eyes: Pupils equal, round and reactive to light.? ENT: Pharynx normal.?? Neck: Normal inspection.? Neck supple.?? CVS: Heart sounds normal. Normal heart rate and rhythm.? Pulses normal; bilateral radial pulses 2+, bilateral posterior tibial/dorsalis pedis pulses 2+.? Respiratory: No respiratory distress.? Lung sounds clear to auscultation bilaterally?? Abdomen: Soft and non-tender. Normoactive bowel sounds. No pulsatile mass.?? Skin: Skin warm and dry.? Normal skin color.? Normal skin turgor.?? Extremities: No lower extremity edema.? No calf ttp? Back: + moderate right paraspinal muscular tenderness from lumbar region to coccyx. No CVA tenderness. No midline spinal tenderness, step-off's, or deformity. Full ROM intact in bilateral lower extremities. Straight leg test positive on right; Straight leg test negative on left. No rashes, lesions, areas of induration or fluctuance, or signs of infection noted., Neuro: Moves all extremities spontaneously. 5/5 strength in hip extension/flexion, abduction, adduction. Sensation to light touch intact bilaterally. Patellar and Achilles reflex 2+ bilaterally. No ataxia, gait normal and steady.. No focal neuro deficits. Course Reevaluation(s) Reevaluation #1: Per nursing patient has been walking around, pain improved. No UTI symptoms however urine with 4+ bacteria this could be contaminated versus possible early UTI. Will treat for UTI air on the side of caution Educated patient on diagnosis and treatment plan, answered all question, patient verbalizes understanding. At this time patient will be discharged home, advised to return with new or worsening symptoms. Educated on worrisome signs and symptoms and when to return. At this time I feel comfortable discharge home. Time: 22:18 Medications Administered Discontinued Medications Generic Name Dose Route Start Last Admin Trade Name Yamileth PRN Reason Stop Dose Admin Ketorolac Tromethamine 30 mg 10/14/23 19:41 10/14/23 20:40 Ketorolac Tromethamine 30 Mg/Ml Vial IM 10/14/23 19:42 30 mg ONCE ONE Administration Lidocaine 1 patch 10/14/23 21:34 10/14/23 21:49 Lidocaine 4 % Patch Adh..Patch TRANSDERMA 10/14/23 21:35 1 patch ONCE ONE Administration Protocol Medical Decision Making Medical Decision Making MDM Narrative: Patient is a 53-year-old female who presents emergency department for evaluation right lower back pain radiating into the leg over the past week as per HPI. Pain is most consistent with lumbar radiculopathy versus arthritic pain from hip, although cannot completely exclude herniated disc. On neurological exam there are no deficits. Not consistent with spinal fracture, spinal infection, epidural abscess, AAA, epidural abscess, or dissection. No high risk past medical history including incontinence, fever, immunosuppression, recent surgery or lumbar puncture, coagulopathy, significant trauma, recent unintentional weight loss, pulsatile mass, history of cancer, history of TB, history of IV drug use that would warrant MRI or CT. Not consistent with ectopic , pyelonephritis, urinary tract infection, renal calculi, pelvic infection, appendicitis, diverticulitis. On exam no concern for cauda equina syndrome. XR of the lumbar spine and right hip was obtained, reveals degenerative changes of the lower thoracic and lumbar spine, hip is unremarkable. No additional imaging is currently indicated at this time. Trialed pain management with Toradol in the ED, signed out to Sukhdev Santos pending re-evaluation of pain. Anticipate discharge home and follow-up with primary care provider, and patient agreed with plan. Differential Diagnosis Differential Diagnoses: The differential diagnosis associated with the presentation includes ( see narrative above) Admission/Observation Consideration of admission/observation: Escalation of care including admission/observation considered ( see narrative above) Lab Data MDM Lab Attestation statement: I reviewed the patient's lab results. (Urinalysis without evidence of infection) Labs: Lab Results 10/14/23 Range/Units 20:41 Urine Color Yellow Urine Appearance Cloudy Urine pH 5.5 (5.0-9.0) Ur Specific Lucas 1.025 (1.005-1.025) Urine Protein Negative (Neg-Trace) mg/dL Urine Glucose (UA) Negative (Negative) mg/dL Urine Ketones Trace (Negative) mg/dL Urine Blood Negative (Negative) Urine Nitrite Negative (Negative) Ur Leukocyte Esterase Trace H (Negative) Urine RBC 3-5 H (0-2) /HPF Urine WBC 21-50 H (0-5) /HPF Ur Squamous Epith Cells >20 (0-2) /HPF Calcium Oxalate Crystal Present Urine Bacteria 4+ (None Seen) Hyaline Casts 0-2 (0-2) /LPF Independent Interpretation I performed an independent interpretation of an: Plain X-Ray (No acute fracture or dislocation) Radiology Impression Discussion of test interpretation with radiology: I have reviewed the radiologist's reading. Radiologist Impression: XR/XR lumbar spine 2-3V IMPRESSION: No acute finding. Degenerative changes in the lumbar spine and lower thoracic spine as described above. External Record Review External record reviewed: Outpatient record Prescription Management I considered prescription management with: Pain Medication Critical Care Time Critical Care Time Critical Care Time: No Discharge Plan Discharge Clinical Impression: Lumbar radiculopathy, UTI (urinary tract infection) Patient Disposition: Home, Self-Care Instructions: Lumbar Radiculopathy (ED), Lower Back Exercises (ED), Urinary Tract Infection in Older Adults (ED) Additional Instructions: Take your medications as prescribed. If you were prescribed antibiotics today, it is important that you take your medication to their entirety, do not skip any doses, do not finish them early. Follow-up with your primary care provider this week. Return to the emergency department with new or worsening symptoms. Such as fevers, chills, chest pain, shortness of breath, nausea, vomiting, dizziness, headache, vision changes, lethargy In case of emergency call 911 Toradol has been sent to your pharmacy, you tolerated this well in the department. Please take this as prescribed do not take this with ibuprofen, or other NSAIDs, do not mix this with alcohol. Side effects of this medication including increased risk for bleeding and possible kidney injury. Prescriptions: New ketorolac 10 mg tablet 10 mg PO TID PRN (Reason: pain) 5 Days Qty: 15 0RF cefuroxime axetil 250 mg tablet 250 mg PO BID 7 Days Qty: 14 0RF No Action metronidazole 500 mg tablet 500 mg PO BID 7 Days Qty: 14 0RF naproxen [Naprosyn] 500 mg tablet 500 mg PO BID Qty: 20 0RF cyclobenzaprine 5 mg tablet 5 mg PO TID PRN (Reason: muscle spasm) Qty: 10 0RF lidocaine 5 % adhesive patch,medicated 1 patch topical DAILY Qty: 15 0RF Rx Instructions: leave on most painful area for up to 12 hrs budesonide-formoterol [Symbicort] 80-4.5 mcg/actuation HFA aerosol inhaler 2 puff inhalation albuterol sulfate [Ventolin HFA] 90 mcg/actuation HFA aerosol inhaler 2 puff inhalation Q4-6H PRN albuterol sulfate 2.5 mg /3 mL (0.083 %) solution for nebulization inhalation TID PRN (Reason: wheezing) omeprazole 20 mg capsule,delayed release(DR/EC) 20 mg PO QAM acetaminophen 500 mg tablet 500 mg PO Q6H PRN (Reason: mild pain) Referrals: Judy Galvan MD [Primary Care Provider] - Stand Alone Forms: Work/School Release
[2023-10-14] MEDS: Ketorolac Tromethamine 30 MG/ML VIAL IM (20:40)
[2023-10-14 20:52] LABS: Appearance Urine Cloudy; Color Urine Yellow; Glucose Urine UA Negative (Negative); Leukocyte Esterase Urine Trace (Negative); Nitrite Urine Negative (Negative); PH 5.5 (5.0-9.0); Specific Gravity - Urine 1.025 (1.005-1.025); UMIC TRIGGER UACC YES; Urine Blood Negative (Negative); Urine Ketones Trace mg/dL (Negative); Urine Protein Negative (Neg-Trace)
[2023-10-14 21:16] VITALS: BP 102/46; PULSE 61; RESP 18; TEMP 36.6; O2SAT 98
[2023-10-14] MEDS: Lidocaine 4 % Patch ADH..PATCH 1 PATCH TRANSDERMA (21:49)
[2023-10-14 22:02] LABS: Bacteria Urine 4+ (None Seen); Calcium Oxalate Crystals Urine Present; Hyaline Casts Urine 0-2 /LPF (0-2); Squamous Epithelial Cell Urine >20 /HPF (0-2); UACC Culture Trigger YES; WBC Urine 21-50 /HPF (0-5)
[2023-10-14] MEDS: Acetaminophen 325 MG TABLET 975 MG PO (22:25)
[2023-10-14 22:27] VITALS: BP 102/46; PULSE 61; RESP 18; TEMP 36.6; O2SAT 98
== END 2023-10-14 22:31 | disposition home or self-care (01) ==
PROVIDERS: Nurse Practitioner Family; Emergency Provider Emergency Medicine Emergency Medical Services; PCP Internal Medicine
DX: M54.16 Radiculopathy, lumbar region (principal); N39.0 Urinary tract infection, site not specified
CPT/HCPCS: 72100; 73502; 81001; 87086; 96372; 99284; J1885

== ENCOUNTER 2023-11-09 14:32 | Outpatient (AMB) | payer MEDICAID, SELFPAY ==
--- NOTE | 2023-11-09 14:44 | MHC.OFFVIS ---
Vital Signs 11/09/23 14:46 Height 5 ft 2 in Weight 249 lb 1.957 oz BMI 45.6 BP 119/58 L Blood Pressure Location Rt brachial Position Sitting Pulse 73 Intake Visit Reasons: Gastroesophageal reflux disease (GERD) Intake Note: Elza is here today as a new patient for GERD. CC: She states that she takes most of her medications PRN - she state she takes omeprazole when needed but she is here today for acid reflux. She states that she will have constipation on and off. 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 She denies any prior problems with anesthesia or sedation. She has well controlled asthma, she denies any cardiac problems. No ID problems. There is a FHX of CRC in her paternal grandfather. COLONOSCOPY Findings: Terminal Ileum-normal Cecum:normal Ascending Colon: normal Transverse Colon -normal Descending Colon:normal Sigmoid Colon: normal Rectum: Retroflexion with small internal hemorrhoids, grade I Anorectum - normal Impression and Post Procedure Diagnosis: internal hemorrhoids Plan: High fiber diet leaflet Avoid straining at stool, epsom salts and sitz bath, anusol supps or cream as needed Repeat Colonoscopy in 10 years or earlier if clinically indicated TODAY'S VISIT Krystal #[id number], Padmini She tolerated the procedure well. I explain the findings and that she will need a repeat in 10 years. At this time she is not aware of any family history of colon cancer or polyps but I told her if she ever finds out differently to contact us because this will affect her surveillance interval. All of her questions were answered and she is feeling well. 53-year-old female with past medical history of asthma, morbid obesity, fatty liver, sciatica, TMJ, eczema is here for initial consultation. As mentioned above in HPI patient had colonoscopy couple years ago. No polyps found recommendation was made to repeat colonoscopy in 10 years, however family history of CRC in paternal grandfather. I recommend patient returns for colorectal screening in November of 2024. Patient is here today for complaining of epigastric discomfort postprandially. Patient reports that no matter what she eats she has epigastric pain feeling very full even though she does not eat much she still is gaining weight. Patient reports postprandial abdominal bloating. Unable to move her bowels well, however due to history of cholecystectomy patient has often experiencing postprandial loose stools. Cholecystectomy about 18 years ago or so. Patient denies any melena, hematochezia, unintentional weight loss or ribbon like stools. Patient reports dyspepsia without dysphagia or odynophagia. Patient denies any nausea or vomiting COUNT INCLUDES THE [facility] Medical History Lipoma of lung History of COVID-19 Morbid obesity Hypovitaminosis D Asthma Surgical History (Updated 11/09/23 @ 19:22 by Stacey Clark [facility]) History of colonoscopy History of cholecystectomy History of bilateral tubal ligation History of Family History Mother Hypertension Diabetes Father Cancer Daughter No problems noted. 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 Sexual orientation: Straight/Heterosexual Gender identity: Female Female Reproductive History Menstrual Age of Menarche: 9 Review of Systems Const Denies weight gain and Denies weight loss ENT Reports no additional complaints, Denies dysphagia and Denies odynophagia Card Reports no additional complaints Resp Reports no additional complaints GI Denies abdominal pain, Denies belching, Denies melena, Denies bloating, Denies change in bowel habits, Reports constipation, Denies dysphagia, Denies excessive flatus, Reports early satiety (with bread), Denies dyspepsia, Reports heartburn, Denies diarrhea, Denies loose stools, Denies nausea, Denies odynophagia and Denies vomiting Reports no additional complaints Musc Reports no additional complaints Neuro Reports no additional complaints Psych Reports no additional complaints Endo Reports no additional complaints Physical Exam Vital Signs: Last Vital Signs Pulse 73 11/09/23 14:46 BP 119/58 L 11/09/23 14:46 BMI result Body Mass Index 45.6 Const General: healthy appearing and no acute distress Nutritional Appearance: obese Orientation/consciousness: patient oriented x3 Resp Effort & Inspection: normal respiratory effort, able to speak in complete sentences, no tracheal deviation and symmetric chest movement Auscultation: clear to auscultation bilaterally Cardio Rate: regular rate GI Inspection: Yes normal to inspection, No distended and Yes obesity Palpation (GI): Soft to palpation, not firm, nontender and No hepatosplenomegaly present Auscultation: normal bowel sounds General: Yes no CVA tenderness Back/Spine/Pelvis Back: no CVA tenderness Skin General skin exam: elasticity normal, turgor normal and dry skin Neuro General: patient oriented x3 Psych Appearance: grossly normal Mental Status: mental status grossly normal Assessment & Plan Assessment & Plan (1) Fatty liver disease, nonalcoholic: Code(s): K76.0 - Fatty (change of) liver, not elsewhere classified Category: Medical (2) GERD (gastroesophageal reflux disease): Code(s): K21.9 - Gastro-esophageal reflux disease without esophagitis Category: Medical Qualifiers: Esophagitis presence: esophagitis presence not specified Qualified Code(s): K21.9 - Gastro-esophageal reflux disease without esophagitis (3) Postprandial bloating: Code(s): R14.0 - Abdominal distension (gaseous) (4) Hx of cholecystectomy: Code(s): Z90.49 - Acquired absence of other specified parts of digestive tract Category: Surgical Plan We will check for H pylori in the office today. Patient has been without PPI for over 2 weeks. States that omeprazole does not work for her at all. Start pantoprazole in the morning half an hour before breakfast. Discussed with patient avoiding dietary triggers and late night snacking. Staying upright for minimum 3 hours after meals discussed with patient will rule out celiac, check transglutaminase. Will check thyroid study, vitamin B12, folate, lipase, liver panel as well as vitamin-D levels. Patient was encouraged to start taking fiber to help her bulk stools. Avoid food that is high in fat. Patient also reports postprandial abdominal bloating and occasional dyspepsia. Patient feels like she has a lot of gas after eating certain foods. Discussed with patient will FODMAP diet. List of food recommended as well as list of food to avoid given to patient. Patient will return in this office in 5-6 weeks, sooner on as needed basis. Next visit will discuss going for upper endoscopy. Patient is agreeable to this plan and verbalizes understanding of instructions. She was given the opportunity to ask questions and all questions answered. Thank you for allowing me to participate in her care Orders: Orders H Pylori Breath Test Today K21.9 - Gastro-esophageal reflux disease without esophagitis Transglutaminase Ab IgG Today R10.9 - Unspecified abdominal pain Transglutaminase IgA Today R10.9 - Unspecified abdominal pain TSH reflex Free T4 Today K59.00 - Constipation, unspecified Vitamin B12 and Folate Today R19.7 - Diarrhea, unspecified Lipase Today R10.9 - Unspecified abdominal pain Liver Panel Today R74.01 - Elevation of levels of liver transaminase levels Vitamin D 25-OH (D2 and D3) Today E55.9 - Vitamin D deficiency, unspecified Medications: New pantoprazole take one tablet half an hour before breakfast 40 mg PO DAILY 30 tabs 2RF K21.9 - Gastro-esophageal reflux disease without esophagitis methylcellulose (laxative) (Citrucel) take it with full glass of water 500 mg PO DAILY 30 tabs 2RF K59.00 - Constipation, unspecified Coding Level of Care Code Est Pt Level 4 (82995) Diagnoses Fatty liver disease, nonalcoholic K76.0 GERD (gastroesophageal reflux disease) K21.9 Esophagitis presence: esophagitis presence not specified Postprandial bloating R14.0 Hx of cholecystectomy Z90.49 Time Spent (min) 40 Comment 30 minutes spent with patient and additional 10 minutes spent reviewing her records
[2023-11-09 14:46] VITALS: BP 119/58; PULSE 73; BMI 45.6
== END 2023-11-09 15:58 | disposition home or self-care (01) ==
PROVIDERS: PCP Internal Medicine; Visit Provider Nurse Practitioner Family
DX: K76.0 Fatty (change of) liver, not elsewhere classified (principal); K21.9 Gastro-esophageal reflux disease without esophagitis; R14.0 Abdominal distension (gaseous); Z90.49 Acquired absence of other specified parts of digestive tract
CPT/HCPCS: 99214

== ENCOUNTER 2023-11-09 14:32 | Outpatient (REF) | payer MEDICAID, SELFPAY ==
[2023-11-11 08:56] LABS: H Pylori Breath Test Negative (Negative)
== END 2023-11-09 14:33 | disposition home or self-care (01) ==
LOC: HO.LNP 14:32
PROVIDERS: PCP Internal Medicine; Visit Provider Nurse Practitioner Family
DX: K76.0 Fatty (change of) liver, not elsewhere classified (principal); K21.9 Gastro-esophageal reflux disease without esophagitis; R14.0 Abdominal distension (gaseous); Z90.49 Acquired absence of other specified parts of digestive tract
CPT/HCPCS: 83013; 99212

== ENCOUNTER 2023-11-22 11:54 | Outpatient (REF) | payer MEDICAID, SELFPAY ==
[2023-11-22 13:28] LABS: Alanine Aminotransferase 28 U/L (0-31); Albumin Level 4.1 g/dL (3.5-5.0); Alkaline Phosphatase 85 U/L (39-117); Aspartate Amino Transferase 22 U/L (5-31); Bilirubin Direct 0.2 mg/dL (0.0-0.5); Bilirubin Total 0.5 mg/dL (0.0-1.0); Lipase 22 U/L (8-78); Total Protein 7.2 g/dL (6.5-8.0)
[2023-11-22 13:47] LABS: TSH reflex Free T4 0.62 uIU/mL (0.32-4.0)
[2023-11-22 14:16] LABS: Vitamin B12 437 pg/mL (200-900)
[2023-11-23 22:43] LABS: Transglutaminase Ab IgG <1.0 U/mL; Transglutaminase IgA <1.0 U/mL
[2023-11-26 16:14] LABS: Vitamin D 25-OH, D2 6 ng/mL; Vitamin D 25-OH, D3 20 ng/mL; Vitamin D 25-OH, Total 26 ng/mL (30-100)
== END 2023-11-22 11:55 | disposition home or self-care (01) ==
LOC: HO.LAB 11:54
PROVIDERS: Visit Provider Nurse Practitioner Family
DX: R74.01 Elevation of levels of liver transaminase levels (principal); K59.00 Constipation, unspecified; R10.9 Unspecified abdominal pain; R19.7 Diarrhea, unspecified; E55.9 Vitamin D deficiency, unspecified
CPT/HCPCS: 36415; 80076; 82306; 82607; 82746; 83690; 84443; 86364

== ENCOUNTER 2023-12-13 14:37 | Outpatient (AMB) | payer MEDICAID, SELFPAY ==
--- NOTE | 2023-12-13 14:42 | A.OFFVIS_ITS ---
Vital Signs 12/13/23 14:47 Height 5 ft 2 in Weight 249 lb 9.012 oz BMI 45.6 BP 138/70 Blood Pressure Location Rt brachial Position Sitting Pulse 58 Pulse Source Pulse Oximeter Pulse Oximetry (%) 97 Oxygen Delivery Method Room Air Intake Visit Reasons: Follow up 5 weeks Intake Note: Elza reports to the office today for a 5 week FUV CC; Pt reports that they are primarily concerned with the results of their recent lab tests and would like to discuss this with the provider. Software Asset Management Analyst Required: Yes Software Asset Management Analyst Name: [id number] Allergies No Known Allergies [No Known Allergies*] Allergy (Verified 12/13/23 14:49) HPI HPI Follow up 5 weeks: Details: LAST VISIT Fatty liver disease, nonalcoholic GERD (gastroesophageal reflux disease) Postprandial bloating Hx of cholecystectomy Plan We will check for H pylori in the office today. Patient has been without PPI for over 2 weeks. States that omeprazole does not work for her at all. Start pantoprazole in the morning half an hour before breakfast. Discussed with patient avoiding dietary triggers and late night snacking. Staying upright for minimum 3 hours after meals discussed with patient will rule out celiac, check transglutaminase. Will check thyroid study, vitamin B12, folate, lipase, liver panel as well as vitamin-D levels. Patient was encouraged to start taking fiber to help her bulk stools. Avoid food that is high in fat. Patient also reports postprandial abdominal bloating and occasional dyspepsia. Patient feels like she has a lot of gas after eating certain foods. Discussed with patient will FODMAP diet. List of food recommended as well as list of food to avoid given to patient. Patient will return in this office in 5-6 weeks, sooner on as needed basis. Next visit will discuss going for upper endoscopy. Patient is agreeable to this plan and verbalizes understanding of instructions. She was given the opportunity to ask questions and all questions answered. ? Thank you for allowing me to participate in her care Orders Orders H Pylori Breath Test Today K21.9 Transglutaminase Ab IgG Today R10.9 Transglutaminase IgA Today R10.9 TSH reflex Free T4 Today K59.00 Vitamin B12 and Folate Today R19.7 Lipase Today R10.9 Liver Panel Today R74.01 Vitamin D 25-OH (D2 and D3) Today E55.9 Medications New pantoprazole take one tablet half an hour before breakfast 40 mg PO DAILY 30 tabs 2RF K21.9 methylcellulose (laxative) (Citrucel) take it with full glass of water 500 mg PO DAILY 30 tabs 2RF K59.00 TODAY'S VISIT: Patient reports that she has been feeling better since she started taking pantoprazole. Her symptoms of acid reflux have completely subsided. Patient is also trying to avoid dietary triggers. Patient reports that she is moving her bowels better now.. We will hold off on doing the and dose therapy for now as her symptoms have been improving. Patient reports that she is taking pantoprazole every other day. Denies dyspepsia, dysphagia or odynophagia. Denies melena, hematochezia, unintentional weight loss or ribbon like stools. All patient's blood work came back negative for any findings. Mildly low vitamin-D level which we will replace. [facility] Medical History Lipoma of lung History of COVID-19 Morbid obesity Hypovitaminosis D Asthma Surgical History History of colonoscopy History of cholecystectomy History of bilateral tubal ligation History of Family History Mother Hypertension Diabetes Father Cancer Daughter No problems noted. 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 Sexual orientation: Straight/Heterosexual Gender identity: Female Female Reproductive History Menstrual Age of Menarche: 9 Review of Systems Const Denies weight gain and Denies weight loss ENT Reports no additional complaints, Denies dysphagia and Denies odynophagia Card Reports no additional complaints Resp Reports no additional complaints GI Denies abdominal pain, Denies belching, Denies melena, Denies bloating, Denies change in bowel habits, Reports constipation, Denies dysphagia, Denies excessive flatus, Denies dyspepsia, Reports heartburn, Denies diarrhea, Denies loose stools, Denies nausea, Denies odynophagia and Denies vomiting Reports no additional complaints Musc Reports no additional complaints Neuro Reports no additional complaints Psych Reports no additional complaints Endo Reports no additional complaints Physical Exam Vital Signs: Last Vital Signs Pulse 58 12/13/23 14:47 BP 138/70 12/13/23 14:47 Pulse Ox 97 12/13/23 14:47 Oxygen Delivery Method Room Air 12/13/23 14:47 BMI result Body Mass Index 45.6 Const General: healthy appearing and no acute distress Nutritional Appearance: obese Orientation/consciousness: patient oriented x3 Resp Effort & Inspection: normal respiratory effort, able to speak in complete sentences, no tracheal deviation and symmetric chest movement Auscultation: clear to auscultation bilaterally Cardio Rate: regular rate GI Inspection: Yes normal to inspection, No distended and Yes obesity Palpation (GI): Soft to palpation, not firm, nontender and No hepatosplenomegaly present Auscultation: normal bowel sounds General: Yes no CVA tenderness Back/Spine/Pelvis Back: no CVA tenderness Skin General skin exam: elasticity normal, turgor normal and dry skin Neuro General: patient oriented x3 Psych Appearance: grossly normal Mental Status: mental status grossly normal Results Reviewed Results Reviewed: Laboratory Tests 11/09/23 11/22/23 15:18 12:12 Total Bilirubin 0.5 Direct Bilirubin 0.2 AST 22 ALT 28 Alkaline Phosphatase 85 Lipase 22 Vitamin B12 437 25-OH Vitamin D Total 26 L Folate 12.0 TSH 0.62 Tiss Transglutamin IgG <1.0 Tiss Transglutamin IgA <1.0 H. pylori Breath Test Negative Assessment & Plan Assessment & Plan (1) Fatty liver disease, nonalcoholic: Code(s): K76.0 - Fatty (change of) liver, not elsewhere classified Category: Medical (2) GERD (gastroesophageal reflux disease): Code(s): K21.9 - Gastro-esophageal reflux disease without esophagitis Category: Medical Qualifiers: Esophagitis presence: esophagitis presence not specified Qualified Code(s): K21.9 - Gastro-esophageal reflux disease without esophagitis (3) Hx of cholecystectomy: Code(s): Z90.49 - Acquired absence of other specified parts of digestive tract Category: Surgical (4) Postprandial bloating: Code(s): R14.0 - Abdominal distension (gaseous) Plan Continue pantoprazole daily for 3 months treatment and then we can re-evaluate. Continue Citrucel daily. Increase fluid intake and activity to promote better bowel motility. Patient reports that she has been feeling well since starting the pantoprazole. Patient is agreeable to this plan and verbalizes understanding of instructions. She was given the opportunity to ask questions and all questions answered. Thank you for allowing me to participate in her care Medications: New cholecalciferol (vitamin D3) 50 mcg PO DAILY 90 caps 3RF R79.89 - Other specified abnormal findings of blood chemistry Coding Level of Care Code Est Pt Level 4 (66389) Diagnoses Fatty liver disease, nonalcoholic K76.0 GERD (gastroesophageal reflux disease) K21.9 Esophagitis presence: esophagitis presence not specified Hx of cholecystectomy Z90.49 Postprandial bloating R14.0 Time Spent (min) 35 Comment 20 minutes spent with patient and additional 15 minutes spent reviewing her records
[2023-12-13 14:47] VITALS: BP 138/70; PULSE 58; O2SAT 97; BMI 45.6
== END 2023-12-13 15:22 | disposition home or self-care (01) ==
PROVIDERS: PCP Internal Medicine; Visit Provider Nurse Practitioner Family
DX: K76.0 Fatty (change of) liver, not elsewhere classified (principal); K21.9 Gastro-esophageal reflux disease without esophagitis; Z90.49 Acquired absence of other specified parts of digestive tract; R14.0 Abdominal distension (gaseous)
CPT/HCPCS: 99214

== ENCOUNTER → 2023-12-13 14:37 | Outpatient (BNVA) | payer MEDICAID, SELFPAY | PROVIDERS: PCP Internal Medicine; Visit Provider Nurse Practitioner Family | DX: K76.0 Fatty (change of) liver, not elsewhere classified (principal); K21.9 Gastro-esophageal reflux disease without esophagitis; R14.0 Abdominal distension (gaseous); Z90.49 Acquired absence of other specified parts of digestive tract | CPT/HCPCS: 99212 ==

== ENCOUNTER 2024-01-13 14:17 | Emergency (ER) | payer MEDICAID, SELFPAY ==
--- NOTE | ~2024-01-13 | XR_ITS ---
EXAMINATION: XR CHEST CLINICAL INFORMATION: Chest pain COMPARISON: X-ray 07/23/2023 TECHNIQUE: 2 views of the chest were obtained. FINDINGS: Normal heart size. Slightly low lung volumes. Unchanged central peribronchial cuffing. No new focal consolidation. No effusion, edema. No pneumothorax is seen. Thoracic spine degeneration. Upper abdomen is within normal limits. XR/XR chest 2V IMPRESSION: Unchanged central peribronchial cuffing can be seen with inflammatory or atypical infectious process. No new focal consolidations.
--- NOTE | 2024-01-13 14:22 | ECG_ITS ---
Test Reason : CHEST PAIN Blood Pressure : / mmHG Vent. Rate : 070 BPM Atrial Rate : 070 BPM P-R Int : 166 ms QRS Dur : 074 ms QT Int : 382 ms P-R-T Axes : 037 018 026 degrees QTc Int : 412 ms Normal sinus rhythm Normal ECG When compared with ECG of 23-JUL-2023 15:36, No significant change was found Referred By: Generic ED Physician Electronically Signed By:KAIT MCMILLAN
--- NOTE | 2024-01-13 14:38 | ED_ITS ---
HPI - Chest Pain General Chief Complaint: Chest Pain Stated Complaint: Chest pain, R side pain Time Seen by Provider: 01/13/24 17:21 Source: patient Mode of arrival: ambulatory Limitations: language barrier History of Present Illness ED Provider: Shirley Ornelas PA-C HPI narrative: 53-year-old female with history of morbid obesity, asthma and Nur presents with right-sided chest pain. Patient states she was at a alliance party dancing with a ?tall gentleman?. He picked her up and gave her a tight hug, since she has had right- sided chest pain. Pain worse with movement. Denies shortness of breath. Related Data Home Medications ?Medication ?Instructions ?Recorded ?Confirmed budesonide-formoterol HFA 80 2 puff inhalation 12/21/22 05/21/23 mcg-4.5 mcg/actuation aerosol inhaler (Symbicort) acetaminophen 500 mg tablet 500 mg PO Q6H PRN mild pain 05/21/23 05/21/23 albuterol sulfate 2.5 mg/3 mL mg inhalation TID PRN wheezing 08/16/23 (0.083 %) solution for nebulization albuterol sulfate 90 mcg/actuation 2 puff inhalation Q4-6H PRN 08/16/23 aerosol inhaler (Ventolin HFA) lidocaine 5 % topical patch 1 patch topical DAILY PRN 11/09/23 Previous Rx's ?Medication ?Instructions ?Recorded naproxen 500 mg tablet (Naprosyn) 500 mg PO BID #20 tabs 12/26/22 cyclobenzaprine 5 mg tablet 5 mg PO TID PRN muscle spasm #10 04/10/23 tabs ketorolac 10 mg tablet 10 mg PO TID PRN pain 5 days #15 10/14/23 tabs methylcellulose (laxative) 500 mg 500 mg PO DAILY #30 tabs 11/09/23 tablet (Citrucel) pantoprazole 40 mg tablet,delayed 40 mg PO DAILY #30 tabs 11/09/23 release cholecalciferol (vitamin D3) 50 50 mcg PO DAILY #90 caps 12/13/23 mcg (2,000 unit) capsule meloxicam 15 mg tablet 15 mg PO DAILY #5 tabs 01/13/24 methocarbamol 750 mg tablet 750 mg PO Q8H #15 tabs 01/13/24 Allergies Allergy/AdvReac Type Severity Reaction Status Date / Time No Known Allergies Allergy Verified 01/13/24 14:45 [No Known Allergies*] Review of Systems 2 Review of Systems: Yes all other systems are reviewed and are negative Constitutional: Constitutional: Denies fever(s) Cardiovascular: Cardiovascular: Reports chest pain and Denies dyspnea Respiratory: Respiratory: Denies dyspnea Gastrointestinal: Gastrointestinal: Reports no additional gastrointestinal complaints and Denies vomiting Musculoskeletal: Musculoskeletal: Reports no additional musculoskeletal complaints [facility] Past Medical History Attestation statement: The following information was validated with the patient. Medical History Lipoma of lung History of COVID-19 Morbid obesity Hypovitaminosis D Asthma Surgical History History of colonoscopy History of cholecystectomy History of bilateral tubal ligation History of Family History Family History Mother Hypertension Diabetes Father Cancer Daughter No problems noted. Son Asthma Son Hypoglycemia Social History Social History Household Members: Children Alcohol intake: current Alcohol intake frequency: a few times a month Patient Tobacco Use Status: Former Tobacco user Current occupational status: employed Current occupation: [employer] Sexual orientation: Straight/Heterosexual Gender identity: Female Physical Exam 2 Vital Signs: Vital Signs: Last Vital Signs Temp 97.9 F 01/13/24 18:22 Pulse 68 01/13/24 18:22 Resp 18 01/13/24 18:22 BP 121/68 01/13/24 18:22 Pulse Ox 96 01/13/24 18:22 O2 Del Method Room Air 01/13/24 18:22 BMI result Body Mass Index 45.8 Const: Other: Alert well in appearance Orientation/consciousness: oriented to person, oriented to place and oriented to time Chest: Other: no focal regions of tenderness over right lateral chest wall, no deformity noted Resp: Other: Nonlabored respiration Cardio: Other: Normal peripheral perfusion GI: Other: Soft, nondistended, obese no guarding no palpable pain Skin: Other: No rash Neuro: General: oriented to person, oriented to place and oriented to time Extrem: Other: Normal steady gait Psych: Other: Calm cooperative Course Course Course Narrative: This is a rapid medical exam. Deferred additional HPI, ROS, PE to primary provider. 53 yo female with history of asthma, s/p cholecystectomy here with complaints of right rib pain which radiates to right back since sunday. Will check labs, EKG, CXR, viral testing YOLANDE Keys APRN Medical Decision Making Medical Decision Making [facility] Narrative: 53-year-old female with history of morbid obesity, asthma and Nur presents with right-sided chest pain. Patient states she was at a alliance party dancing with a ?tall gentleman?. He picked her up and gave her a tight hug, since she has had right- sided chest pain. Pain worse with movement. Denies shortness of breath. Problem: Obese History: Per patient I have considered the following differential diagnoses: Chest wall strain, chest wall contusion, rib fracture, ACS, biliary pathology Plan: This is clear musculoskeletal strain, she has a mechanism of injury support. Chest x-ray obtained and is negative for fracture. We will send with an anti-inflammatory and a muscle relaxant she can follow up with primary care. To note, screening labs including 2 cardiac enzymes were obtained with EKG, this is not ACS,. Also thought about underlying biliary pathology given right-sided symptoms, however no palpable abdominal pain, she has no complaint of abdominal pain, no postprandial symptoms no active GI symptoms. I have independently reviewed the following tests: Labs: No cyanosis, not anemic, no electrolyte abnormality, troponin x2 negative EKG: Sinus rhythm, rate of 74, no ischemic changes no ectopy Chest x-ray: No pneumonia, no pleural effusion, no pulmonary edema Differential Diagnosis Differential Diagnoses: The differential diagnosis associated with the presentation includes Chest wall strain, chest wall contusion, rib fracture, ACS, biliary pathology Lab Data 01/13/24 14:52 01/13/24 14:52 Labs: Lab Results 01/13/24 01/13/24 01/13/24 Range/Units 14:52 15:29 17:14 WBC 8.1 (4.8-10.8) X10*3/uL RBC 4.41 (4.20-5.50) X10*6/uL Hgb 13.8 (12.0-16.0) g/dl Hct 40.6 (37.0-47.0) % MCV 92.1 (80.0-98.0) fL MCH 31.3 (27.0-33.0) pg MCHC 34.0 (31.0-35.0) g/dl RDW 12.6 (11.0-16.0) % Plt Count 211 (160-400) X10*3/uL MPV 10.0 (9.4-12.3) fL Immature Gran % (Auto) 0.4 (0.0-0.4) % Neut % (Auto) 62.4 (45-73) % Lymph % (Auto) 25.5 (20-40) % [place] % (Auto) 7.6 (2-11) % Eos % (Auto) 3.9 (0-4) % Baso % (Auto) 0.2 (0-2) % Lymph # (Auto) 2.1 (1.2-4.9) X10*3/uL [place] # (Auto) 0.6 (0.1-1.2) X10*3/uL Eos # (Auto) 0.3 (0.0-0.4) X10*3/uL Baso # (Auto) 0.0 (0.0-0.2) X10*3/uL Abs Immat Gran (auto) 0.03 (0.00-0.03) X10*3/uL Absolute Neuts (auto) 5.0 (2.0-8.3) x10*3/uL Absolute Nucleated RBC 0.000 (0.0-0.012) X10*3/uL Nucleated RBC % (auto) 0.0 (0.0-0.2) /100WBC PT 11.8 (11.1-13.3) SEC INR 1.0 (0.9-1.1) Sodium 142 (135-145) mmol/L Potassium 4.0 (3.3-5.1) mmol/L Chloride 107 (96-108) mmol/L Carbon Dioxide 26 (22-29) mmol/L Anion Gap 13 (12-20) BUN 12 (9-16) mg/dL Creatinine 0.70 (0.5-1.4) mg/dL Estim Creat Clear Calc 110.8 Estimated GFR > 60 Random Glucose 91 (60-115) mg/dL Calcium 9.5 (8.4-10.2) mg/dL Magnesium 2.1 (1.6-2.6) mg/dL Total Bilirubin 0.5 (0.0-1.0) mg/dL Direct Bilirubin 0.2 (0.0-0.5) mg/dL AST 18 (5-31) U/L ALT 19 (0-31) U/L Alkaline Phosphatase 95 (39-117) U/L Troponin I High Sens < 2.7 < 2.7 (<3.5-17.0) ng/L Total Protein 7.4 (6.5-8.0) g/dL Albumin 4.2 (3.5-5.0) g/dL Urine Color Yellow Urine Appearance Clear Urine pH 7.0 (5.0-9.0) Ur Specific [place] 1.010 (1.005-1.025) Urine Protein Negative (Neg-Trace) mg/dL Urine Glucose (UA) Negative (Negative) mg/dL Urine Ketones Negative (Negative) mg/dL Urine Blood Negative (Negative) Urine Nitrite Negative (Negative) Ur Leukocyte Esterase Negative (Negative) COVID-19 ([facility]) Negative (Negative) COVID-19 Clin Com See Note Discharge Plan Discharge Clinical Impression: Chest wall muscle strain Patient Disposition: Home, Self-Care Instructions: Chest Wall Pain (ED) Additional Instructions: Your exam was consistent with chest wall strain/pain. See home care instructions. Use the methocarbamol as needed, this is a muscle relaxant. To note this medication will cause drowsiness, do not drive or operate machinery while taking the medication. Take the meloxicam, this is an anti-inflammatory, to help with the pain as well, uses as directed daily take it with food. Follow up with your primary care provider as needed. Prescriptions: New methocarbamol 750 mg tablet 750 mg PO Q8H Qty: 15 0RF meloxicam 15 mg tablet 15 mg PO DAILY Qty: 5 0RF No Action ketorolac 10 mg tablet 10 mg PO TID PRN (Reason: pain) 5 Days Qty: 15 0RF naproxen [Naprosyn] 500 mg tablet 500 mg PO BID Qty: 20 0RF cyclobenzaprine 5 mg tablet 5 mg PO TID PRN (Reason: muscle spasm) Qty: 10 0RF budesonide-formoterol [Symbicort] 80-4.5 mcg/actuation HFA aerosol inhaler 2 puff inhalation albuterol sulfate [Ventolin HFA] 90 mcg/actuation HFA aerosol inhaler 2 puff inhalation Q4-6H PRN albuterol sulfate 2.5 mg /3 mL (0.083 %) solution for nebulization inhalation TID PRN (Reason: wheezing) acetaminophen 500 mg tablet 500 mg PO Q6H PRN (Reason: mild pain) lidocaine 5 % adhesive patch,medicated 1 patch topical DAILY PRN Rx Instructions: leave on most painful area for up to 12 hrs pantoprazole 40 mg tablet,delayed release (DR/EC) 40 mg PO DAILY Qty: 30 2RF Rx Instructions: take one tablet half an hour before breakfast Citrucel 500 mg tablet 500 mg PO DAILY Qty: 30 2RF Rx Instructions: take it with full glass of water cholecalciferol (vitamin D3) 50 mcg (2,000 unit) capsule 50 mcg PO DAILY Qty: 90 3RF Stand Alone Forms: Work/School Release Print Language: Australian
[2024-01-13 14:40] VITALS: BP 124/71; PULSE 75; RESP 18; TEMP 36.2; O2SAT 94; BMI 45.8
[2024-01-13 15:03] LABS: MANUAL DIFF FLAG NO
[2024-01-13 15:05] LABS: Basophils Percent Auto 0.2 % (0-2); Eosinophils Absolute Auto 0.3 X10*3/uL (0.0-0.4); Eosinophils Percent Auto 3.9 % (0-4); Hematocrit 40.6 % (37.0-47.0); Hemoglobin 13.8 g/dl (12.0-16.0); Imm Gran Abs Auto 0.03 X10*3/uL (0.00-0.03); Imm Gran Pct Auto 0.4 % (0.0-0.4); Lymphocytes Absolute Auto 2.1 X10*3/uL (1.2-4.9); Lymphocytes Percent Auto 25.5 % (20-40); Mean Corpuscular Hemoglobin 31.3 pg (27.0-33.0); Mean Corpuscular Volume 92.1 fL (80.0-98.0); Monocytes Absolute Auto 0.6 X10*3/uL (0.1-1.2); Monocytes Percent Auto 7.6 % (2-11); Neutrophils Percent Auto 62.4 % (45-73); Platelet Count 211 X10*3/uL (160-400); Red Blood Count 4.41 X10*6/uL (4.20-5.50); Red Cell Distribution Width 12.6 % (11.0-16.0); White Blood Count 8.1 X10*3/uL (4.8-10.8)
[2024-01-13 15:12] LABS: COVID-19 Test Negative (Negative); IDNOW Serial# 152EDE1D
[2024-01-13 15:21] LABS: Alanine Aminotransferase 19 U/L (0-31); Albumin Level 4.2 g/dL (3.5-5.0); Alkaline Phosphatase 95 U/L (39-117); Anion Gap 13 (12-20); Aspartate Amino Transferase 18 U/L (5-31); Bilirubin Direct 0.2 mg/dL (0.0-0.5); Bilirubin Total 0.5 mg/dL (0.0-1.0); Blood Urea Nitrogen 12 mg/dL (9-16); Calcium 9.5 mg/dL (8.4-10.2); Carbon Dioxide 26 mmol/L (22-29); Chloride 107 mmol/L (96-108); Creatinine Clr Calc Pharmacy 110.8; Estimated Glomerular Filt Rate > 60; Glucose Random 91 mg/dL (60-115); Magnesium 2.1 mg/dL (1.6-2.6); Sodium 142 mmol/L (135-145); Total Protein 7.4 g/dL (6.5-8.0)
[2024-01-13 15:29] LABS: Prothrombin Time 11.8 SEC (11.1-13.3); Troponin-I High Sensitivity < 2.7 ng/L (<3.5-17.0)
[2024-01-13 15:40] LABS: Appearance Urine Clear; Color Urine Yellow; Glucose Urine UA Negative (Negative); Leukocyte Esterase Urine Negative (Negative); Nitrite Urine Negative (Negative); Urine Blood Negative (Negative); Urine Ketones Negative (Negative); Urine Protein Negative (Neg-Trace)
[2024-01-13 17:44] LABS: Troponin-I High Sensitivity < 2.7 ng/L (<3.5-17.0)
[2024-01-13 18:22] VITALS: BP 121/68; PULSE 68; RESP 18; TEMP 36.6; O2SAT 96
[2024-01-13] MEDS: methocarbamoL 750 MG TABLET PO (18:29)
[2024-01-13] MEDS: Ibuprofen 600 MG TABLET PO (18:29)
[2024-01-13 19:03] VITALS: PULSE 68
[2024-01-13 19:07] VITALS: BP 121/68; PULSE 68; RESP 18; TEMP 36.6; O2SAT 96
== END 2024-01-13 19:08 | disposition home or self-care (01) ==
PROVIDERS: Nurse Practitioner Family; Emergency Provider Emergency Medicine; PCP Internal Medicine
DX: R07.89 Other chest pain (principal); R10.9 Unspecified abdominal pain; Z79.899 Other long term (current) drug therapy; Z11.52 Encounter for screening for COVID-19
CPT/HCPCS: 36415; 71046; 80048; 80076; 81003; 83735; 84484; 85025; 85610; 87635; 93005; 99283; 99285

== ENCOUNTER → 2024-01-13 14:22 | Outpatient (BNV) | payer MEDICAID, SELFPAY | PROVIDERS: Emergency Provider Emergency Medicine; PCP Internal Medicine; Visit Provider Internal Medicine | DX: R07.9 Chest pain, unspecified (principal) | CPT/HCPCS: 93010 ==

== ENCOUNTER 2024-01-28 03:37 | Emergency (ER) | payer MEDICAID, SELFPAY ==
--- NOTE | 2024-01-28 | ECG_ITS ---
Test Reason : chest pain Blood Pressure : / mmHG Vent. Rate : 061 BPM Atrial Rate : 061 BPM P-R Int : 168 ms QRS Dur : 072 ms QT Int : 402 ms P-R-T Axes : 036 015 025 degrees QTc Int : 404 ms Normal sinus rhythm Normal ECG When compared with ECG of 13-JAN-2024 14:24, Nonspecific T wave abnormality no longer evident in Anterior leads Referred By: Generic ED Physician Electronically Signed By:CALLUM DEAL MD
--- NOTE | ~2024-01-28 | XR_ITS ---
EXAMINATION: XR CHEST CLINICAL INFORMATION: Chest pain. COMPARISON: 01/13/2024 TECHNIQUE: Frontal view of the chest was obtained. FINDINGS: No significant abnormality is noted involving the heart, lungs, mediastinum, bony thorax or soft tissues. XR/XR chest 1V IMPRESSION: No active cardiopulmonary disease.
--- NOTE | ~2024-01-28 | CT_ITS ---
EXAMINATION: CT CHEST WITHOUT CONTRAST CLINICAL INFORMATION: Left chest pain after fall COMPARISON: Chest radiograph earlier today, CT angiogram chest 07/24/2023 TECHNIQUE: Multidetector volumetric CT imaging of the chest was done. Axial MIP volume rendering provided. Sagittal and coronal reformatted images were obtained. This CT examination was performed using dose optimization techniques as appropriate, variously including the following: *Automated exposure control *Adjustment of mA and/or kV according to patient size (this includes techniques or standardized protocols for targeted exams where dose is matched to indication/reason for exam; i.e. extremities or head) *Use of iterative reconstruction technique DLP: 377 mGy-cm FINDINGS: LUNGS: Bibasilar atelectasis is present. Some mild emphysematous changes are present along with bronchial thickening. The lungs are otherwise clear with no evidence of inflammation or nodules. MEDIASTINUM: The mediastinum is normal. CORONARY ARTERY CALCIFICATION: None visualized on this study. PLEURA: There is no pleural effusion. There is no pneumothorax. No pleural mass or thickening. AXILLA: No lymphadenopathy. UPPER ABDOMEN: Status post cholecystectomy OSSEOUS STRUCTURES: There are nondisplaced fractures of the right seventh and eighth rib ends. No other fractures are seen. Moderate degenerative changes are present in the spine. No other fractures or bony destructive lesions are seen. CT/CT chest wo IV con IMPRESSION: 1. Nondisplaced fractures of the right seventh and eighth rib ends. No other fractures are seen. 2. Incidental note made of mild emphysematous changes, bronchial thickening and cholecystectomy. Fleischner guidelines were followed.
[2024-01-28 03:48] VITALS: BP 110/52; PULSE 67; RESP 16; TEMP 36.9; O2SAT 98; BMI 45.9
[2024-01-28 04:06] LABS: Hematocrit 36.8 % (37.0-47.0); Hemoglobin 12.5 g/dl (12.0-16.0); Mean Corpuscular Hemoglobin 31.1 pg (27.0-33.0); Mean Corpuscular Volume 91.5 fL (80.0-98.0); Platelet Count 201 X10*3/uL (160-400); Red Blood Count 4.02 X10*6/uL (4.20-5.50); Red Cell Distribution Width 12.6 % (11.0-16.0); White Blood Count 7.3 X10*3/uL (4.8-10.8)
[2024-01-28 04:12] LABS: Prothrombin Time 12.4 SEC (11.1-13.3)
[2024-01-28 04:20] LABS: Alanine Aminotransferase 17 U/L (0-31); Albumin Level 4.1 g/dL (3.5-5.0); Alkaline Phosphatase 93 U/L (39-117); Anion Gap 15 (12-20); Aspartate Amino Transferase 16 U/L (5-31); Bilirubin Total 0.3 mg/dL (0.0-1.0); Blood Urea Nitrogen 10 mg/dL (9-16); Calcium 9.4 mg/dL (8.4-10.2); Carbon Dioxide 23 mmol/L (22-29); Chloride 108 mmol/L (96-108); Creatinine Clr Calc Pharmacy 109.7; Estimated Glomerular Filt Rate > 60; Glucose Random 99 mg/dL (60-115); Sodium 142 mmol/L (135-145); Total Protein 7.1 g/dL (6.5-8.0)
[2024-01-28 04:29] LABS: Troponin-I High Sensitivity < 2.7 ng/L (<3.5-17.0)
--- NOTE | 2024-01-28 05:50 | ED_ITS ---
HPI - Chest Pain General Chief Complaint: Chest Pain Stated Complaint: chest pain Time Seen by Provider: 01/28/24 05:40 Source: patient Mode of arrival: ambulatory Limitations: no limitations History of Present Illness ED Provider: Dr. Elyse Teixeira HPI narrative: Patient comes to the emergency room complaining of musculoskeletal left-sided chest pain. About a week ago, patient states that she was in a dance class, her partner accidentally squeezed her too hard and then started having chest pain. Patient came to the emergency room to be evaluated, workup was negative. Then, patient states that approximately 2 days ago she fell on the stairs and landed on the left side of her body and since then the pain has been unbearable. Patient states that in April of last year, she had a fatty mass removed from the left lung, patient had chest tubes and the pain that she experiencing at this time feels similar to having a chest tube. Patient states that she has no shortness of breath. However, the pain that she is having gets worse with deep inspiration. Patient denies palpitations. Related Data Home Medications ?Medication ?Instructions ?Recorded ?Confirmed budesonide-formoterol HFA 80 2 puff inhalation 12/21/22 05/21/23 mcg-4.5 mcg/actuation aerosol inhaler (Symbicort) acetaminophen 500 mg tablet 500 mg PO Q6H PRN mild pain 05/21/23 05/21/23 albuterol sulfate 2.5 mg/3 mL mg inhalation TID PRN wheezing 08/16/23 (0.083 %) solution for nebulization albuterol sulfate 90 mcg/actuation 2 puff inhalation Q4-6H PRN 08/16/23 aerosol inhaler (Ventolin HFA) lidocaine 5 % topical patch 1 patch topical DAILY PRN 11/09/23 Previous Rx's ?Medication ?Instructions ?Recorded naproxen 500 mg tablet (Naprosyn) 500 mg PO BID #20 tabs 12/26/22 cyclobenzaprine 5 mg tablet 5 mg PO TID PRN muscle spasm #10 04/10/23 tabs ketorolac 10 mg tablet 10 mg PO TID PRN pain 5 days #15 10/14/23 tabs methylcellulose (laxative) 500 mg 500 mg PO DAILY #30 tabs 11/09/23 tablet (Citrucel) pantoprazole 40 mg tablet,delayed 40 mg PO DAILY #30 tabs 11/09/23 release cholecalciferol (vitamin D3) 50 50 mcg PO DAILY #90 caps 12/13/23 mcg (2,000 unit) capsule meloxicam 15 mg tablet 15 mg PO DAILY #5 tabs 01/13/24 methocarbamol 750 mg tablet 750 mg PO Q8H #15 tabs 01/13/24 oxycodone 5 mg tablet 5 mg PO BID PRN pain #7 tabs 01/28/24 Allergies Allergy/AdvReac Type Severity Reaction Status Date / Time No Known Allergies Allergy Verified 01/28/24 03:53 [No Known Allergies*] Review of Systems 2 Review of Systems: Constitutional : No Weight loss, No Fever, No Chills, No Night Sweats, No Fatigue, No Malaise ENT/Mouth : No Hearing loss, No Ear Pain, No Nasal Congestion, No Sinus Pain, No Hoarseness, No sore throat, No Rhinorrhea, No Swallowing Difficulty Eyes: No Eye Pain, No Swelling, No Redness, No Foreign Body, No Discharge, No Vision Changes Cardiovascular : No Chest Pain, complaining of chest wall pain worse with inspiration, No SOB, No Dyspnea on Exertion, No Orthopnea, No Edema, No Palpitations Respiratory : No Cough, No Sputum, No Wheezing, No Smoke Exposure, No Dyspnea Gastrointestinal : No Nausea, No Vomiting, No Diarrhea, No Constipation, No abdominal Pain, No Hematochezia, No Melena Genitourinary : no irregular bleeding, No Dysuria, No Urinary Frequency, No Hematuria, No Urinary Incontinence, No Urgency, No Flank Pain, No Urinary Flow Changes, No Hesitancy Musculoskeletal : Complaining of chest wall pain on the left No joint pain, No Myalgias, No Joint Swelling Skin : No Skin Lesions, No rash Neuro : No Weakness, No Numbness, No Paresthesias, No Loss of Consciousness, No Dizziness, No Headache Psych : No Anxiety/Panic, No Depression, No SI/HI/AH/VH, No Social Issues, Heme/Lymph: No Bruising, No Bleeding,No Lymphadenopathy Endocrine : No Polyuria, No Polydipsia, No Temperature Intolerance PMFSH Past Medical History Medical History Lipoma of lung History of COVID-19 Morbid obesity Hypovitaminosis D Asthma Surgical History History of colonoscopy History of cholecystectomy History of bilateral tubal ligation History of Family History Family History Mother Hypertension Diabetes Father Cancer Daughter No problems noted. 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 Oriented X3. No acute distress. Eyes: Pupils equal, round and reactive to light. ENT: Pharynx normal. Neck: Normal inspection. Neck supple. No lymph nodes noted. No crepitus CVS: Normal heart rate and rhythm. Pulses normal. Normal S1 and S2 Respiratory: No respiratory distress. Breath sounds normal. No Wheezing. No rales Abdomen: Soft and nontender. No rigidity. No distention. Musculoskeletal: Reproducible pain to palpation with minimal pressure over the ribs on the left side of the chest Skin: Skin warm and dry. Normal skin color. Normal skin turgor. No ecchymosis Extremities: No lower extremity edema. No Lacerations. No Rash Neuro: Oriented X 3. No motor deficit. No sensory deficit. Moving all extremities. No slurred speech. CN 2 through 12 grossly intact Psych: calm, cooperative, normal affect Course Course Course Narrative: -patient's pain likely musculoskeletal. Patient states that she has rib pain whenever she moves. Patient fell a few days ago. Patient denies any shortness of breath. Medications Administered Discontinued Medications Generic Name Dose Route Start Last Admin Trade Name Yamileth PRN Reason Stop Dose Admin Cyclobenzaprine HCl 10 mg 01/28/24 05:56 01/28/24 06:34 Cyclobenzaprine Hcl 10 Mg Tablet PO 01/28/24 05:57 10 mg ONCE ONE Administration Oxycodone HCl 5 mg 01/28/24 05:56 01/28/24 06:34 Oxycodone Hcl Immed Release 5 Mg Tablet PO 01/28/24 05:57 5 mg ONCE ONE Administration Medical Decision Making Medical Decision Making [facility] Narrative: -my interpretation of EKG: Normal sinus rhythm, heart rate 61, no ST segment depression or elevation, no T-wave inversion, QTC 404 -my interpretation of labs: Normal hematology and chemistry, normal troponin -my interpretation of chest x-ray, no obvious anomalies -given the patient's history and amount of pain, we will order a CT scan to rule out rib fractures. At this time, pulmonary contusion or any kind of pulmonary bleeding is not suspected. -I considered given Toradol. However, patient takes naproxen at home. -patient was given a dose of p.o. cyclobenzaprine and oxycodone in the ED while we wait for the CT scan results. -my interpretation of CT scan: No obvious fracture. -patient is source of pain that can musculoskeletal -sign-out given to Dr. Guardado Differential Diagnosis Differential Diagnoses: The differential diagnosis associated with the presentation includes (Costochondritis, fracture ribs, pulmonary contusion) Admission/Observation Consideration of admission/observation: Escalation of care including admission/observation considered (Given patient's amount of pain length of complaints, observation considered) Lab Data [facility] Lab Attestation statement: I reviewed the patient's lab results. 01/28/24 04:01 01/28/24 04:01 Labs: Lab Results 01/28/24 Range/Units 04:01 WBC 7.3 (4.8-10.8) X10*3/uL RBC 4.02 L (4.20-5.50) X10*6/uL Hgb 12.5 (12.0-16.0) g/dl Hct 36.8 L (37.0-47.0) % MCV 91.5 (80.0-98.0) fL MCH 31.1 (27.0-33.0) pg MCHC 34.0 (31.0-35.0) g/dl RDW 12.6 (11.0-16.0) % Plt Count 201 (160-400) X10*3/uL MPV 10.0 (9.4-12.3) fL Absolute Nucleated RBC 0.000 (0.0-0.012) X10*3/uL Nucleated RBC % (auto) 0.0 (0.0-0.2) /100WBC PT 12.4 (11.1-13.3) SEC INR 1.0 (0.9-1.1) Sodium 142 (135-145) mmol/L Potassium 4.0 (3.3-5.1) mmol/L Chloride 108 (96-108) mmol/L Carbon Dioxide 23 (22-29) mmol/L Anion Gap 15 (12-20) BUN 10 (9-16) mg/dL Creatinine 0.70 (0.5-1.4) mg/dL Estim Creat Clear Calc 109.7 Estimated GFR > 60 Random Glucose 99 (60-115) mg/dL Calcium 9.4 (8.4-10.2) mg/dL Magnesium 2.0 (1.6-2.6) mg/dL Total Bilirubin 0.3 (0.0-1.0) mg/dL AST 16 (5-31) U/L ALT 17 (0-31) U/L Alkaline Phosphatase 93 (39-117) U/L Troponin I High Sens < 2.7 (<3.5-17.0) ng/L Total Protein 7.1 (6.5-8.0) g/dL Albumin 4.1 (3.5-5.0) g/dL Independent Interpretation I performed an independent interpretation of an: CT Scan Critical Care Time Critical Care Time Critical Care Time: Yes Total Critical Care Time: 30 Attestation: I have personally provided critical care time. Time includes review of lab data, radiology results, discussion with consultants, and monitoring for potential decompensation. Intervention performed as documented. Discharge Plan Discharge Clinical Impression: Chest pain, musculoskeletal Patient Disposition: Home, Self-Care Instructions: Chest Wall Pain (ED) Additional Instructions: Please follow-up with your primary care physician tomorrow. If you have any worsening or new symptoms, please return to the emergency room or call 911 Prescriptions: New oxycodone 5 mg tablet 5 mg PO BID PRN (Reason: pain) Qty: 7 0RF Rx Instructions: Partial Fill upon patient request. No Action ketorolac 10 mg tablet 10 mg PO TID PRN (Reason: pain) 5 Days Qty: 15 0RF naproxen [Naprosyn] 500 mg tablet 500 mg PO BID Qty: 20 0RF cyclobenzaprine 5 mg tablet 5 mg PO TID PRN (Reason: muscle spasm) Qty: 10 0RF methocarbamol 750 mg tablet 750 mg PO Q8H Qty: 15 0RF meloxicam 15 mg tablet 15 mg PO DAILY Qty: 5 0RF budesonide-formoterol [Symbicort] 80-4.5 mcg/actuation HFA aerosol inhaler 2 puff inhalation albuterol sulfate [Ventolin HFA] 90 mcg/actuation HFA aerosol inhaler 2 puff inhalation Q4-6H PRN albuterol sulfate 2.5 mg /3 mL (0.083 %) solution for nebulization inhalation TID PRN (Reason: wheezing) acetaminophen 500 mg tablet 500 mg PO Q6H PRN (Reason: mild pain) lidocaine 5 % adhesive patch,medicated 1 patch topical DAILY PRN Rx Instructions: leave on most painful area for up to 12 hrs pantoprazole 40 mg tablet,delayed release (DR/EC) 40 mg PO DAILY Qty: 30 2RF Rx Instructions: take one tablet half an hour before breakfast Citrucel 500 mg tablet 500 mg PO DAILY Qty: 30 2RF Rx Instructions: take it with full glass of water cholecalciferol (vitamin D3) 50 mcg (2,000 unit) capsule 50 mcg PO DAILY Qty: 90 3RF Print Language: Kinyarwanda
[2024-01-28 06:00] VITALS: BP 114/65; PULSE 66; RESP 15; TEMP 37.2; O2SAT 98
[2024-01-28] MEDS: oxyCODONE HCl Immed Release 5 MG TABLET PO (06:34)
[2024-01-28] MEDS: Cyclobenzaprine HCl 10 MG TABLET PO (06:34)
[2024-01-28 08:49] VITALS: BP 123/66; PULSE 57; RESP 16; TEMP 36.5; O2SAT 98
== END 2024-01-28 08:52 | disposition home or self-care (01) ==
PROVIDERS: Emergency Medicine; Emergency Provider Emergency Medicine; PCP Internal Medicine
DX: R07.89 Other chest pain (principal); M79.10 Myalgia, unspecified site; Z79.899 Other long term (current) drug therapy
CPT/HCPCS: 36415; 71045; 71250; 80053; 83735; 84484; 85027; 85610; 93005; 99284

== ENCOUNTER → 2024-01-28 03:40 | Outpatient (BNV) | payer MEDICAID, SELFPAY | PROVIDERS: Emergency Provider Emergency Medicine; PCP Internal Medicine; Visit Provider Internal Medicine Cardiovascular Disease | DX: R07.9 Chest pain, unspecified (principal) | CPT/HCPCS: 93010 ==

== ENCOUNTER 2024-02-29 14:46 | Outpatient (AMB) | payer MEDICAID, SELFPAY ==
--- NOTE | 2024-02-29 14:55 | A.OFFVIS_ITS ---
Vital Signs 02/29/24 14:58 Height 5 ft 2 in Weight 252 lb 3.341 oz BMI 46.1 BP 126/58 L Blood Pressure Location Rt brachial Position Sitting Pulse 72 Pulse Source Pulse Oximeter Pulse Oximetry (%) 97 Oxygen Delivery Method Room Air Intake Visit Reasons: 3 month follow up Gerd Intake Note: Elza presents in office today for a scheduled 3 mos FUV. CC; Pt had received rx for vitamin D3 at last visit. Pt did not have any labs ordered for them. Pt had ED admit for traumatic related chest pain 01/28/24 (check for labs as needed). Pt reports that their condition is much improved since their last visit. Pt reports that they feel that their stomach has been fine and would like to discuss more details surrounding their s/p. Experimental Mechanic Required: Yes Experimental Mechanic Name: [id number] - Said Accompanied by: Self / Same As Patient Allergies No Known Allergies [No Known Allergies*] Allergy (Verified 02/29/24 14:57) HPI HPI 3 month follow up Gerd: Details: LAST VISIT Fatty liver disease, nonalcoholic GERD (gastroesophageal reflux disease) Hx of cholecystectomy Postprandial bloating Plan Continue pantoprazole daily for 3 months treatment and then we can re-evaluate. Continue Citrucel daily. Increase fluid intake and activity to promote better bowel motility. Patient reports that she has been feeling well since starting the pantoprazole. Patient is agreeable to this plan and verbalizes understanding of instructions. She was given the opportunity to ask questions and all questions answered. ? Thank you for allowing me to participate in her care Medications New cholecalciferol (vitamin D3) 50 mcg PO DAILY 90 caps 3RF R79.89 TODAY'S VISIT Patient is here today for follow-up. Patient reports that she has been feeling better. Continues used to take pantoprazole and her symptoms of acid reflux are suppressed. Patient denies dyspepsia, dysphagia or odynophagia. Patient denies melena, hematochezia, unintentional weight loss or ribbon like stools. Patient will be due for colonoscopy in November of 2025. Patient reports that she is moving her bowels well. Going to the bathroom twice a day. Feels like she empties completely. Occasional abdominal bloating. Patient no longer follows up with bariatric surgery. Patient was unable to stick to the regimen prior to the surgery. History of fatty liver. LIVER ELASTOGRAPHY FROM 2020 Shear wave liver elastography median stiffness is 1.96 m/s (reference: normal median stiffness is 1.3 m/s or less). [facility] Medical History Lipoma of lung History of COVID-19 Morbid obesity Hypovitaminosis D Asthma Surgical History (Updated 02/29/24 @ 15:13 by Stacey Clark [facility]) History of colonoscopy History of cholecystectomy History of bilateral tubal ligation History of Family History Mother Hypertension Diabetes Father Cancer Daughter No problems noted. 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 Sexual orientation: Straight/Heterosexual Gender identity: Female Female Reproductive History Menstrual Age of Menarche: 9 Review of Systems Const Denies weight gain and Denies weight loss ENT Reports no additional complaints, Denies dysphagia and Denies odynophagia Card Reports no additional complaints Resp Reports no additional complaints GI Denies abdominal pain, Denies belching, Denies melena, Denies bloating, Denies change in bowel habits, Reports constipation, Denies dysphagia, Denies excessive flatus, Denies dyspepsia, Reports heartburn, Denies diarrhea, Denies loose stools, Denies nausea, Denies odynophagia and Denies vomiting Reports no additional complaints Musc Reports no additional complaints Neuro Reports no additional complaints Psych Reports no additional complaints Endo Reports no additional complaints Physical Exam Vital Signs: Last Vital Signs Pulse 72 02/29/24 14:58 BP 126/58 L 02/29/24 14:58 Pulse Ox 97 02/29/24 14:58 Oxygen Delivery Method Room Air 02/29/24 14:58 BMI result Body Mass Index 46.1 Const General: healthy appearing and no acute distress Nutritional Appearance: obese Orientation/consciousness: patient oriented x3 Resp Effort & Inspection: normal respiratory effort, able to speak in complete sentences, no tracheal deviation and symmetric chest movement Auscultation: clear to auscultation bilaterally Cardio Rate: regular rate GI Inspection: Yes normal to inspection, No distended and Yes obesity Palpation (GI): Soft to palpation, not firm, nontender and No hepatosplenomegaly present Auscultation: normal bowel sounds General: Yes no CVA tenderness Back/Spine/Pelvis Back: no CVA tenderness Skin General skin exam: elasticity normal, turgor normal and dry skin Neuro General: patient oriented x3 Psych Appearance: grossly normal Mental Status: mental status grossly normal Assessment & Plan Assessment & Plan (1) Fatty liver disease, nonalcoholic: Code(s): K76.0 - Fatty (change of) liver, not elsewhere classified Category: Medical (2) GERD (gastroesophageal reflux disease): Code(s): K21.9 - Gastro-esophageal reflux disease without esophagitis Category: Medical Qualifiers: Esophagitis presence: esophagitis presence not specified Qualified Code(s): K21.9 - Gastro-esophageal reflux disease without esophagitis (3) Hx of cholecystectomy: Code(s): Z90.49 - Acquired absence of other specified parts of digestive tract Category: Surgical (4) Postprandial bloating: Code(s): R14.0 - Abdominal distension (gaseous) Plan Patient will continue current treatment with pantoprazole. Avoid dietary triggers and late night snacking. Staying upright for minimum 3 hours after meals discussed with patient. Will recheck liver fibrosis panel and ultrasound with elastography. Normal liver enzymes in January of 2024. Increase fluid intake and activity to promote better bowel motility. Patient can take fiber supplement. Follow-up in the office in 6 months, sooner on as needed basis. She is agreeable to this plan and verbalizes understanding of instructions. She was given the opportunity to ask questions and all questions answered. Thank you for allowing me to participate in her care Orders: Orders Liver Fibrosis Pnl Today K76.0 - Fatty (change of) liver, not elsewhere classified US abdomen rubio w elastography Today K76.0 - Fatty (change of) liver, not elsewhere classified Coding Level of Care Code Est Pt Level 3 (24174) Diagnoses Fatty liver disease, nonalcoholic K76.0 GERD (gastroesophageal reflux disease) K21.9 Esophagitis presence: esophagitis presence not specified Hx of cholecystectomy Z90.49 Postprandial bloating R14.0 Time Spent (min) 30 Comment 20 minutes spent with patient and additional 10 minutes spent reviewing her
[2024-02-29 14:58] VITALS: BP 126/58; PULSE 72; O2SAT 97; BMI 46.1
== END 2024-02-29 15:40 | disposition home or self-care (01) ==
PROVIDERS: PCP Internal Medicine; Visit Provider Nurse Practitioner Family
DX: K76.0 Fatty (change of) liver, not elsewhere classified (principal); K21.9 Gastro-esophageal reflux disease without esophagitis; Z90.49 Acquired absence of other specified parts of digestive tract; R14.0 Abdominal distension (gaseous)
CPT/HCPCS: 99213

== ENCOUNTER → 2024-02-29 14:46 | Outpatient (BNVA) | payer MEDICAID, SELFPAY | PROVIDERS: PCP Internal Medicine; Visit Provider Nurse Practitioner Family | DX: K21.9 Gastro-esophageal reflux disease without esophagitis (principal); K76.0 Fatty (change of) liver, not elsewhere classified; R14.0 Abdominal distension (gaseous); Z90.49 Acquired absence of other specified parts of digestive tract; Z79.899 Other long term (current) drug therapy | CPT/HCPCS: 99212 ==

== ENCOUNTER → 2024-03-06 13:36 | Outpatient (BNVA) | payer MEDICAID, SELFPAY | PROVIDERS: PCP Internal Medicine; Visit Provider Physician Assistant Surgical ==

== ENCOUNTER 2024-03-26 11:34 | Outpatient (AMB) | payer MEDICAID, SELFPAY ==
[2024-03-26 11:39] VITALS: BP 116/74; BMI 43.3
--- NOTE | 2024-03-26 11:39 | MHC.OFFVIS ---
Vital Signs 03/26/24 11:39 Height 5 ft 3 in Weight 244 lb 11.41 oz BMI 43.3 BP 116/74 Intake Visit Reasons: PMB Home Organizer Required: Yes Home Organizer Language: Landscape Engineer Services: Home Organizer Present (in person) Home Organizer Name: Mallorie GTZ Information Interpreted: non-clinical & clinical Cane Weigher: Cane Weigher Present (Mallorie GTZ) Accompanied by: Self / Same As Patient Allergies No Known Allergies [No Known Allergies*] Allergy (Verified 03/26/24 11:43) Post menopausal: Yes HPI Comments Details: Presenting after an episode of vaginal spotting that occurred a week ago after few years of amenorrhea. No other associated symptoms Last co testing in 08/05 was negative [facility] Medical History (Updated 03/26/24 @ 11:48 by Juan Jose Gill MD) Lipoma of lung History of COVID-19 Morbid obesity Hypovitaminosis D Asthma Surgical History (Updated 02/29/24 @ 15:13 by Stacey Clark [facility]-) History of colonoscopy History of cholecystectomy History of bilateral tubal ligation History of Family History Mother Hypertension Diabetes Father Cancer Daughter No problems noted. 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 Sexual orientation: Straight/Heterosexual Gender identity: Female Female Reproductive History Menstrual Age of Menarche: 9 Review of Systems Const All systems reviewed & are unremarkable except as noted in HPI and below Physical Exam Vital Signs: Last Vital Signs BP 116/74 03/26/24 11:39 BMI result Body Mass Index 43.3 General: Yes no CVA tenderness External Female Exam: normal external appearance and normal appearance of the urethra Speculum Exam - Vagina: normal appearance of the vagina, normal palpation, no lesions and no masses Speculum Exam - Cervix: normal appearance of the cervix, normal palpation, no lesions, no masses and nontender Bimanual exam- vagina & uterus: normal bimanual exam, normal palpation, uterine size normal, normal palpation, uterine shape normal, No Cervical tenderness present and non-tender Bimanual Exam- Adnexa, other: normal adnexae Back/Spine/Pelvis Back: no CVA tenderness Assessment & Plan Assessment & Plan (1) Postmenopausal bleeding: Code(s): N95.0 - Postmenopausal bleeding Category: Medical Plan: Discussed with the patient the differential diagnosis of post menopausal bleeding with normal pelvic exam including but not limited to, endometrial hyperplasia, cancer, polyps and other causes; co testing done, recommended ultrasound to measure the endometrial stripe; discussed with the patient that if the endometrial thickness is 4 mm or less the negative predictive value of endometrial pathology is 99%, otherwise If endometrial thickness is more than 4 mm will proceed with endometrial sampling versus hysteroscopy D&C polypectomy depending on the ultrasound findings. Instructed the patient to schedule an ultrasound with a follow-up appointment in 2 weeks. All questions answered, the patient verbalized understanding and agreed with the plan. This note was generated with a voice recognition program. Some errors may have been overlooked during the review of this note. Sometimes these errors may affect the content or meaning of a given sentence. Orders: Orders US pelvic and transvaginal Today N95.0 - Postmenopausal bleeding Coding Level of Care Code New Pt Level 3 (40202) Diagnoses Postmenopausal bleeding N95.0
== END 2024-03-26 12:08 | disposition home or self-care (01) ==
LOC: HO.HWS 11:34
PROVIDERS: PCP Internal Medicine; Visit Provider Obstetrics & Gynecology
DX: N95.0 Postmenopausal bleeding (principal)
CPT/HCPCS: 99213

== ENCOUNTER → 2024-03-26 11:34 | Outpatient (BNVA) | payer MEDICAID, SELFPAY | PROVIDERS: PCP Internal Medicine; Visit Provider Obstetrics & Gynecology | DX: N95.0 Postmenopausal bleeding (principal) | CPT/HCPCS: 99212 ==

== ENCOUNTER 2024-03-27 08:59 | Outpatient (REF) | payer MEDICAID, SELFPAY ==
--- NOTE | ~2024-03-27 | US_ITS ---
EXAMINATION: US ABDOMEN LIMITED WITH LIVER ELASTOGRAPHY CLINICAL INFORMATION: Nonalcoholic fatty liver. COMPARISON: None available. TECHNIQUE: Real-time imaging of the abdominal viscera. Noninvasive ultrasound liver fibrosis assessment is performed using Zainab ElastPQ point quantification shear wave elastography (pSWE) with a 5 MHz transducer. Multiple elastography samples are obtained. FINDINGS: PANCREAS: The visualized pancreas appears unremarkable but the pancreatic the body and tail are obscured by bowel gas. LIVER: The liver demonstrates normal size and contour. Liver echogenicity is slightly increased suggesting hepatic steatosis. No focal lesion or intrahepatic biliary duct dilatation. The right lobe measures 15.6 cm in length. The left lobe measures 11.6 cm in length. Shear wave elastography provides a median stiffness of 2.08 m/s (reference: normal median stiffness is 0.81 - 1.22 m/s). Previously this value was 1.96. The IQR/median stiffness to assess sampling precision is unchanged at 0.12 (reference: optimal IQR/median stiffness is under 0.3). Portal venous flow is hepatopedal. GALLBLADDER: Status post cholecystectomy. COMMON BILE DUCT: Normal in caliber measuring 0.6 cm in diameter. RIGHT KIDNEY: Lower pole is obscured by bowel gas. No hydronephrosis. No renal calculi or focal parenchymal lesions. The kidney measures 11.3 cm in maximum dimension. FREE FLUID: None. US/US abdomen rubio w elastography IMPRESSION: 1. Slightly increased liver echogenicity. 2. Elastography: Although the liver elastography measurements are consistent with a moderate risk for clinically significant liver fibrosis (METAVIR Stage F2-F3), there is statistical variability of the sampling which decreases accuracy. REFERENCE: Society of Radiologists in Ultrasound Liver Stiffness Thresholds (2020): LIVER STIFFNESS THRESHOLDS: *Liver Stiffness equal or less than 1.3 m/s: High probability of being normal. *Liver Stiffness less than 1.7 m/s: In the absence of other known clinical signs, rules out compensated advanced chronic liver disease. *Liver Stiffness 1.7-2.1 m/s: Suggestive of compensated advanced chronic liver disease but need further test for confirmation. *Liver Stiffness over 2.1 m/s: Rules in compensated advanced chronic liver disease. *Liver Stiffness over 2.4 m/s: Suggestive of clinically significant portal hypertension. QUALITY OF DATA SET: *IQR/Median value equal or less than 0.15 implies a quality data set. *IQR/Median value over 0.15 implies a poor quality data set. SIGNIFICANT CHANGE FROM PRIOR EXAM: Significant change if liver stiffness measurement is 10% or greater from prior exam. OTHER CONSIDERATIONS: The stage of liver fibrosis may be overestimated in the setting of acute hepatitis, liver inflammation, elevated liver function tests, hepatic vascular congestion, obstructive cholestasis, non-fasting state, and infiltrative diseases such as amyloidosis and lymphoma. In some patients with NAFLD, the liver stiffness thresholds for compensated advanced chronic liver disease may be lower. In causes other than viral hepatitis and NAFLD, liver stiffness thresholds are not well established. Electronically signed by: Elliot Clancy MD 03/29/2024 02:32 PM EDT
== END 2024-03-27 09:00 | disposition home or self-care (01) ==
LOC: HO.US 08:59
PROVIDERS: PCP Internal Medicine; Visit Provider Nurse Practitioner Family
DX: K76.0 Fatty (change of) liver, not elsewhere classified (principal)
CPT/HCPCS: 76705; 76981

== ENCOUNTER 2024-04-04 07:49 | Outpatient (AMB) | payer MEDICAID, SELFPAY ==
--- NOTE | 2024-04-04 13:09 | A.OFFVIS_ITS ---
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* Brood Station Manager Required: Yes Brood Station Manager Services: Brood Station Manager Present Information Interpreted: clinical only Allergies No Known Allergies [No Known Allergies*] Allergy (Verified 04/04/24 13:09) Medication List - Last Reconciled 04/04/24 by Anthony Del Valle MD acetaminophen 500 mg PO Q6H PRN albuterol sulfate 90 mcg/actuation (Ventolin HFA) 2 puffs inhalation Q4-6H PRN albuterol sulfate mg inhalation TID PRN budesonide-formoterol 80-4.5 mcg/actuation (Symbicort) 2 puffs inhalation cholecalciferol (vitamin D3) 50 mcg PO DAILY cyclobenzaprine 5 mg PO TID PRN fluticasone propionate 50 mcg/actuation 1 spray intranasal DAILY gabapentin mg PO .prn lidocaine 5% 1 patch topical DAILY PRN meloxicam 15 mg PO DAILY methylcellulose (laxative) (Citrucel) 500 mg PO DAILY naproxen (Naprosyn) 500 mg PO BID pantoprazole 40 mg PO DAILY HPI HPI TV Re-Est SWL BMI 45 *SUPERVISOR TAPING*: Details: Start time: 12.54pm, End time: 1.54pm ?I spent 50 minutes speaking with the patient on the phone plus an additional 10 minutes reviewing and updating records for a total of 60 minutes HPI Comments Details: Previous weight loss efforts: self diet and exercise Wakes up: 12pm, sleeps: 3.30am Breakfast: skips Lunch: 12pm Breakfast food (2 eggs) Dinner: 6pm (meal, lettuce and spinach) Snacks: none Exercise: none Fluids: Coffee: 1 cup/day, tea: none, soda: Sprite, juice: coconut water or juice, ETOH: PFSH Medical History (Updated 04/04/24 @ 13:17 by Anthony Del Valle MD) Left chest thoracotomy scar GERD (gastroesophageal reflux disease) DJD (degenerative joint disease) Lipoma of lung History of COVID-19 Morbid obesity Hypovitaminosis D Asthma Surgical History (Updated 02/29/24 @ 15:13 by Stacey Clark [facility]) History of colonoscopy History of cholecystectomy History of bilateral tubal ligation History of Family History Mother Hypertension Diabetes Father Cancer Daughter No problems noted. 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 Sexual orientation: Straight/Heterosexual Gender identity: Female Female Reproductive History Menstrual Age of Menarche: 9 Telehealth Telehealth Telehealth Platform: Telephone Location of provider rendering services: practice address Location of patient: address on file Patient Identification confirmed using: Name, : Yes Telehealth method: voice only Patient verbally consented to treatment: Yes Patient verbally consented to billing insurance company: Yes Patient informed of any privacy concerns related to visit: Yes Minutes spent on Phone/Video with Pt.: 60 Assessment & Plan Assessment & Plan (1) Morbid obesity: Code(s): E66.01 - Morbid (severe) obesity due to excess calories Category: Medical Plan: 1.? Plan for lap sleeve gastrectomy. If diaphragmatic or ventral hernias are present at time of surgery, these will be repaired laparoscopically as well. Risks and complications include possible conversion to an open procedure, anastomotic leak, bleeding requiring transfusion, small bowel obstruction, , DVT and pulmonary embolism, cardiac, or pulmonary complications, as watermaster complications such as anastomotic ulcer, insufficient weight loss and vitamin deficiencies. I emphasized the importance of close follow-up, adherence to instructions and good communication. 2. You will receive a link of our software doug to generate an individualized nutritional and exercise plan specific for you. Please send me a screenshot of the plans you will generate Meal to include lean meat (beef, fish, pork, turkey, chicken), or bulgarian yogurt, or egg whites, or beans with a salad with olive oil and fruits (berries, pears, apples, kiwi). Avoid salt, breads, potatoes, rice, pasta, desserts. ?3. If you choose shakes, each shake would be drunk slowly, like coffee in a period of 2 hours. ?4. If you choose bars, cut each bar in 4 pieces and eat each piece in 30min ?to make each bar last 2 hours. ?5. I emphasized the importance of measuring accurately the food portion and measure it when serving the food in plate ?6. The meal portions include a specific number of forks of meat and salad. You always eat the meat portion but you can replace up to half of salad/vegetables portion with rice, potatoes or pasta, or a fruit ?if you like. The less you do it the better weight loss will be. ?7. One full-size fork is what it can be scooped on the fork without falling aside and not what can be bit with the fork. Use regular forks like those you find in a typical restaurant. ?8.? Please send me weight measurements as soon as possible and then once a week. Always include your diet and exercise plan. 9. The best choice would be to purchase a stationary bike, elliptical or treadmill at home that can track calories. Let me know if you do so I can give you an exercise plan. ?10.?Goal is to lose at least 1.5-2lbs per week ?11. Goal to lose 10% of your weight before surgery, which is about 25lbs. Ultimate weight goal: 220lbs before surgery 12. Please follow the diet plan exactly without any change. If you don't like something about the plan or you feel hungry you need to communicate with me so I can help you revise the plan. You should not change the plan yourself. 13. To be scheduled for EGD due to history of GERD. The possibility of biopsies was discussed. Patient needs to avoid use of NSAIDs and aspirin for 1 week prior to EGD. Risks of perforation and bleeding was discussed with the patient. This will be an outpatient procedure with IV sedation. Orders: Orders Comprehensive Met. Panel Today E66.01 - Morbid (severe) obesity due to excess calories, J45.909 - Unspecified asthma, uncomplicated, K21.9 - Gastro-esophageal reflux disease without esophagitis TSH reflex Free T4 Today E66.01 - Morbid (severe) obesity due to excess calories, J45.909 - Unspecified asthma, uncomplicated, K21.9 - Gastro-esophageal reflux disease without esophagitis Vitamin A Today E66.01 - Morbid (severe) obesity due to excess calories, J45.909 - Unspecified asthma, uncomplicated, K21.9 - Gastro-esophageal reflux disease without esophagitis Vitamin B1 Today E66.01 - Morbid (severe) obesity due to excess calories, J45.909 - Unspecified asthma, uncomplicated, K21.9 - Gastro-esophageal reflux disease without esophagitis Type and Screen Today E66.01 - Morbid (severe) obesity due to excess calories, J45.909 - Unspecified asthma, uncomplicated, K21.9 - Gastro-esophageal reflux disease without esophagitis C Reactive Protein Today E66.01 - Morbid (severe) obesity due to excess calories, J45.909 - Unspecified asthma, uncomplicated, K21.9 - Gastro-esophageal reflux disease without esophagitis Partial Thromboplastin Time Today E66.01 - Morbid (severe) obesity due to excess calories, J45.909 - Unspecified asthma, uncomplicated, K21.9 - Gastro- esophageal reflux disease without esophagitis Zinc Today E66.01 - Morbid (severe) obesity due to excess calories, J45.909 - Unspecified asthma, uncomplicated, K21.9 - Gastro-esophageal reflux disease without esophagitis IRON PROFILE Today E66.01 - Morbid (severe) obesity due to excess calories, J45.909 - Unspecified asthma, uncomplicated, K21.9 - Gastro-esophageal reflux disease without esophagitis H Pylori Breath Test Today E66.01 - Morbid (severe) obesity due to excess calories Hemoglobin A1c Today E66.01 - Morbid (severe) obesity due to excess calories, J45.909 - Unspecified asthma, uncomplicated, K21.9 - Gastro-esophageal reflux disease without esophagitis Prothrombin Time INR Today E66.01 - Morbid (severe) obesity due to excess calories, J45.909 - Unspecified asthma, uncomplicated, K21.9 - Gastro-esophageal reflux disease without esophagitis Lipid Panel Today E66.01 - Morbid (severe) obesity due to excess calories, J45.909 - Unspecified asthma, uncomplicated, K21.9 - Gastro-esophageal reflux disease without esophagitis Vitamin B12 Today E66.01 - Morbid (severe) obesity due to excess calories, J45.909 - Unspecified asthma, uncomplicated, K21.9 - Gastro-esophageal reflux disease without esophagitis Vitamin D 25-OH Total Today E66.01 - Morbid (severe) obesity due to excess calories, J45.909 - Unspecified asthma, uncomplicated, K21.9 - Gastro-esophageal reflux disease without esophagitis Complete Blood Count Auto Diff Today E66.01 - Morbid (severe) obesity due to excess calories, J45.909 - Unspecified asthma, uncomplicated, K21.9 - Gastro- esophageal reflux disease without esophagitis Ferritin Today E66.01 - Morbid (severe) obesity due to excess calories, J45.909 - Unspecified asthma, uncomplicated, K21.9 - Gastro-esophageal reflux disease without esophagitis Insulin Today E66.01 - Morbid (severe) obesity due to excess calories, J45.909 - Unspecified asthma, uncomplicated, K21.9 - Gastro-esophageal reflux disease without esophagitis Vitamin B12 and Folate Today E66.01 - Morbid (severe) obesity due to excess calories Referrals Behavioral Health Referral E66.01 - Morbid (severe) obesity due to excess calories
[2024-04-04 13:27] VITALS: BMI 43.5
== END 2024-04-04 13:56 | disposition home or self-care (01) ==
LOC: HO.HBS 07:49
PROVIDERS: PCP Internal Medicine; Referring Provider Internal Medicine; Visit Provider Surgery
DX: E66.01 Morbid (severe) obesity due to excess calories (principal); Z68.41 Body mass index [BMI] 40.0-44.9, adult
CPT/HCPCS: 99215

== ENCOUNTER 2024-04-04 13:50 | Outpatient (REF) | payer MEDICAID, SELFPAY ==
--- NOTE | ~2024-04-04 | US_ITS ---
EXAMINATION: US PELVIS CLINICAL INFORMATION: Postmenopausal bleeding. COMPARISON: None available. TECHNIQUE: Ultrasound of the pelvis is performed using both transabdominal and transvaginal transducers along with Doppler. Transvaginal imaging is performed due to inadequate visualization transabdominally. FINDINGS: UTERUS: The uterus measures 8.5 x 3.1 x 4.6. The double wall endometrial thickness is increased at 1.0 cm with cystic areas. The uterus is smooth in contour and has normal myometrial echogenicity. No visible fibroid. ADNEXA: Both ovaries are visualized. There is normal color flow to the adnexa. There is no ovarian torsion. There is no pelvic ascites or fluid collection. Right ovary measures 2.6 x 1.7 x 1.3 cm for a volume of 3.0 mL. Left ovary measures 3.1 x 1.7 x 1.8 cm for a volume of 5.0 mL. US/US pelvic and transvaginal IMPRESSION: Thickened endometrium with cystic areas. Further evaluation is recommended. Electronically signed by: Elliot Clancy MD 04/09/2024 05:55 PM EDT
== END 2024-04-04 13:51 | disposition home or self-care (01) ==
LOC: HO.US 13:50
PROVIDERS: PCP Internal Medicine; Visit Provider Obstetrics & Gynecology
DX: N95.0 Postmenopausal bleeding (principal)
CPT/HCPCS: 76830; 76856

== ENCOUNTER 2024-04-11 08:34 | Outpatient (AMB) | payer MEDICAID, SELFPAY ==
--- NOTE | 2024-04-11 08:41 | A.OFFVIS_ITS ---
Vital Signs 04/11/24 08:43 Height 5 ft 3 in Weight 244 lb 11.41 oz BMI 43.3 BP 114/70 Intake Visit Reasons: pre op Electrolysis Needle Operator Required: Yes Electrolysis Needle Operator Language: Crown Assembly Machine Operator Services: Electrolysis Needle Operator Present (in person) Electrolysis Needle Operator Name: Mallorie GTZ Information Interpreted: non-clinical & clinical Concrete Worker: Concrete Worker Present Accompanied by: Self / Same As Patient Allergies No Known Allergies [No Known Allergies*] Allergy (Verified 04/11/24 08:45) Is last menstrual period known: Yes Last menstrual period: 05/13/20 Post menopausal: Yes Patient : No Do you need a note to return to daycare/school/sports/work: Yes (for surgery on sunday) HPI Comments Details: Presenting for ultrasound follow-up regarding postmenopausal bleeding. Pelvic ultrasound showed the following: The uterus measures 8.5 x 3.1 x 4.6. The double wall endometrial thickness is increased at 1.0 cm with cystic areas. The uterus is smooth in contour and has normal myometrial echogenicity. No visible fibroid. ADNEXA: Both ovaries are visualized. There is normal color flow to the adnexa. There is no ovarian torsion. There is no pelvic ascites or fluid collection. Right ovary measures 2.6 x 1.7 x 1.3 cm for a volume of 3.0 mL. Left ovary measures 3.1 x 1.7 x 1.8 cm for a volume of 5.0 mL PFSH Medical History (Updated 04/11/24 @ 08:54 by Juan Jose Gill MD) Left chest thoracotomy scar GERD (gastroesophageal reflux disease) DJD (degenerative joint disease) Lipoma of lung History of COVID-19 Morbid obesity Hypovitaminosis D Asthma Surgical History (Updated 02/29/24 @ 15:13 by Satcey Clark [facility]) History of colonoscopy History of cholecystectomy History of bilateral tubal ligation History of Family History Mother Hypertension Diabetes Father Cancer Daughter No problems noted. Son Asthma Son Hypoglycemia Social History Household Members: Children Alcohol intake: current Alcohol intake frequency: a few times a month Patient Tobacco Use Status: Former Tobacco user Current occupational status: employed Current occupation: [employer] WORK[employer] Sexual orientation: Straight/Heterosexual Gender identity: Female Female Reproductive History Menstrual Age of Menarche: 9 Date of last menstrual period: 05/13/20 Total pregnancies: 2 Full term: 2 Review of Systems Card Reports as per HPI and Reports no additional complaints Resp Reports as per HPI and Reports no additional complaints GI Reports as per HPI and Reports no additional complaints Reports as per HPI Physical Exam Vital Signs: BMI result Body Mass Index 43.3 Const General: cooperative, healthy appearing and comfortable Resp Effort & Inspection: normal respiratory effort Auscultation: clear to auscultation bilaterally Percussion: percussion normal Cardio Palpation: normal PMI Rate: regular rate Rhythm: regular rhythm Heart sounds: no murmurs and no rubs Peripheral pulses: Peripheral pulses 2+ throughout GI Inspection: Yes normal to inspection Palpation (GI): Soft to palpation, nontender, no guarding, not rigid and No hepatosplenomegaly present Percussion: Yes normal to percussion Auscultation: normal bowel sounds Rectal Exam - Female: deferred Assessment & Plan Assessment & Plan (1) Postmenopausal bleeding: Comment: Thick cystic endometrium by ultrasound Code(s): N95.0 - Postmenopausal bleeding Category: Medical Plan: Discussed with the patient the pelvic ultrasound findings, the endometrial stripe thickenss measured by ultrasound was more than 4mm. The negative predictive value, positive predictive value, Sensitivity, specificity of using ultrasound measurement of endometrial stripe to detecting endometrial pathology including hyperplasia , polyp or cancer were discussed with the patient. Recommended to the patient that the next step is an endometrial sampling via hysteroscopy D&C possible polypectomy versus endometrial biopsy to r/o endometrial pathology including hyperplasia or cancer. All the pros and cons risks and benefits of each approach were discussed with the patient, endometrial biopsy being less invasive, office procedure with less sensitivity and inability diagnose a polyp and removal versus hysteroscopy done under anesthesia more invasive more sensitive to endometrial cancer and possibility of diagnosing and endometrial polyp with the possibility of polypectomy. All questions were answered pt verbalized understanding and decided to proceed with hysteroscopy D&C possible polypectomy/myomectomy. Discussed with the patient the procedure , all benefits and risks including but not limited to inability to complete the procedure , insufficient endometrial tissue for a complete evaluation of the endometrial cavity , bleeding, infection, possible need for blood transfusion with all its risk ( HIV,syphilis, Hepatitis, anaphylaxis shock, others..), injury to bladder, rectum, possible need for laparoscopy/laparotomy or hysterectomy. The patient verbalized understanding and signed the consent. Instructions given the patient to stay NPO after midnight the day prior to the procedure and to take only the specific medication (s) discussed the morning of the surgical procedure and to schedule a 2 week postoperative appointment Coding Level of Care Code Est Pt Level 3 (75827) Diagnoses Postmenopausal bleeding N95.0
[2024-04-11 08:43] VITALS: BP 114/70; BMI 43.3
== END 2024-04-11 09:19 | disposition home or self-care (01) ==
LOC: HO.HWS 08:34
PROVIDERS: PCP Internal Medicine; Visit Provider Obstetrics & Gynecology
DX: N95.0 Postmenopausal bleeding (principal)
CPT/HCPCS: 99213

== ENCOUNTER → 2024-04-11 08:34 | Outpatient (BNVA) | payer MEDICAID, SELFPAY | PROVIDERS: PCP Internal Medicine; Visit Provider Obstetrics & Gynecology | DX: Z01.818 Encounter for other preprocedural examination (principal); N95.0 Postmenopausal bleeding | CPT/HCPCS: 99212 ==

== ENCOUNTER 2024-04-19 18:52 | Emergency (ER) | payer MEDICAID, SELFPAY ==
[2024-04-19 18:58] VITALS: BP 144/70; PULSE 68; RESP 17; TEMP 36.4; O2SAT 96; BMI 47.8
--- NOTE | 2024-04-19 19:02 | ED.GENADULT ---
HPI - General Adult General Chief complaint: Back Pain/Injury Stated complaint: hip and left leg pain, dizzy Time Seen by Provider: 04/19/24 22:00 Source: patient Mode of arrival: ambulatory Limitations: language barrier (Paraguayan speaking only, porcelain slusher used) History of Present Illness ED Provider: Dr. Arvin Delgado HPI narrative: 54-year-old female with a history of GERD, degenerative joint disease, asthma, obesity who presents emergency department for evaluation of left lower back pain with pain radiating down her lateral aspect of her left leg to her foot with no weakness, numbness loss of bowel or bladder control or difficulty walking. Patient states that the symptoms started 3 days prior. 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 She states that this morning, when she woke up she had neck pain and she also felt lightheaded and dizzy (room spinning dizziness) which was worse with movement but has not resolved. She denied fever, chills, rhinorrhea, sore throat, cough, chest pain, shortness of breath or dyspnea on exertion. Related Data Home Medications ?Medication ?Instructions ?Recorded ?Confirmed budesonide-formoterol HFA 80 2 puff inhalation 12/21/22 04/04/24 mcg-4.5 mcg/actuation aerosol inhaler (Symbicort) acetaminophen 500 mg tablet 500 mg PO Q6H PRN mild pain 05/21/23 04/04/24 albuterol sulfate 2.5 mg/3 mL mg inhalation TID PRN wheezing 08/16/23 04/04/24 (0.083 %) solution for nebulization albuterol sulfate 90 mcg/actuation 2 puff inhalation Q4-6H PRN 08/16/23 04/04/24 aerosol inhaler (Ventolin HFA) lidocaine 5 % topical patch 1 patch topical DAILY PRN 11/09/23 04/04/24 fluticasone propionate 50 1 spray intranasal DAILY 02/29/24 04/04/24 mcg/actuation nasal spray,suspension gabapentin 300 mg capsule mg PO .prn 03/06/24 04/04/24 Previous Rx's ?Medication ?Instructions ?Recorded naproxen 500 mg tablet (Naprosyn) 500 mg PO BID #20 tabs 12/26/22 cyclobenzaprine 5 mg tablet 5 mg PO TID PRN muscle spasm #10 04/10/23 tabs methylcellulose (laxative) 500 mg 500 mg PO DAILY #30 tabs 11/09/23 tablet (Citrucel) pantoprazole 40 mg tablet,delayed 40 mg PO DAILY #30 tabs 11/09/23 release cholecalciferol (vitamin D3) 50 50 mcg PO DAILY #90 caps 12/13/23 mcg (2,000 unit) capsule meloxicam 15 mg tablet 15 mg PO DAILY #5 tabs 01/13/24 cyclobenzaprine 10 mg tablet 10 mg PO TID PRN pain, muscle 04/19/24 spasm #15 tabs prednisone 20 mg tablet 60 mg (3 x 20 mg) PO DAILY 7 days 04/19/24 #21 tabs Allergies Allergy/AdvReac Type Severity Reaction Status Date / Time No Known Allergies Allergy Verified 04/19/24 18:59 [No Known Allergies*] Review of Systems Review of Systems: Yes all other systems are reviewed and are negative [facility] Past Medical History [facility] Narrative: Social history: She works as an [employer]. She denies tobacco and drug use. She occasionally drinks alcohol. Medical History (Updated 04/19/24 @ 22:39 by Arvin Delgado MD) Left chest thoracotomy scar GERD (gastroesophageal reflux disease) DJD (degenerative joint disease) Lipoma of lung History of COVID-19 Morbid obesity Hypovitaminosis D Asthma Surgical History (Updated 02/29/24 @ 15:[address] [facility]) History of colonoscopy History of cholecystectomy History of bilateral tubal ligation History of Family History Family History Mother Hypertension Diabetes Father Cancer Daughter No problems noted. 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 Sexual orientation: Straight/Heterosexual Gender identity: Female Physical Exam ED Vital Signs: Vital Signs - 24 hr 04/19/24 18:58 Temperature 97.5 F Pulse Rate 68 Respiratory Rate 17 Blood Pressure 144/70 H Pulse Oximetry 96 Oxygen Delivery Method Room Air BMI result Body Mass Index 47.8 Vital signs revealed an elevated blood pressure of 144/70 otherwise unremarkable Exam: General: Awake, alert in no distress Head: Normocephalic, atraumatic EENT: PERRL, Lids normal, sclera normal, conjunctiva normal, nose normal , ears normal, throat without erythema or exudates Neck: Supple, no adenopathy Lung: breath sounds symmetric, no wheezing, rales or rhonchi Chest: symmetric movement, nontender Heart: regular rate and rhythm, normal S1, S2 no murmurs or rubs Abdomen: soft, non-tender, nondistended, normal bowel sounds Back: Patient has tenderness of her cervical, thoracic and lumbar sacral spine with no point tenderness. She has tenderness palpation of her left lower paraspinal muscles with spasm of these muscles. She was negative straight leg raises bilaterally. Extremities: no deformities, moves all extremities symmetrically Neuro: General: Awake, alert, oriented to person place, answers all questions appropriately Awake, alert, oriented, normal speech, cranial nerves intact, moves all extremities symmetrically Cerebellar: Good xquaxv-rz-srvn-to-finger, good heel to soriano, no nystagmus, able to walk in the emergency department without any difficulty Strength: Symmetric, 5/5 able to stand and walk Reflexes: lower extremities-1+ and symmetric Psych: Pleasant, cooperative Course Course Course Narrative: RME performed by Cecile Berger PA-C. Patient is a 54 year old assigned female at presenting to the emergency department with dizziness, lightheadedness, and low back pain. Detailed physical exam and review of systems are deferred to the tire setter. EKG, labs, and swbas ordered. Patient placed back in the waiting room pending room availability and results. Medical Decision Making Medical Decision Making MDM Narrative: 54-year-old female with a history of GERD, degenerative joint disease, asthma, obesity who presents emergency department for evaluation of left lower back pain with pain radiating down her lateral aspect of her left leg to her foot with no weakness, numbness loss of bowel or bladder control or difficulty walking. Patient states that the symptoms started 3 days prior, with no known injury at work or at home. She also complained of dizziness, room spinning like has not see that occurred this morning which was worse with movement but is now resolved. Vital signs revealed an elevated blood pressure otherwise unremarkable. Physical examination did reveal tenderness palpation of her entire spine with increased tenderness palpation over the left lumbar sacral paraspinal muscles, negative straight leg raises bilaterally normal neurologic exam and no difficulty walking. Differential diagnosis: ?Includes but is not limited to paraspinal muscle injury, sciatica/radiculopathy, cerebellar stroke, vertigo, dizziness, myocardial ischemia, myocardial infarction, electrolyte abnormalities, anemia Course: 22:36 Patient's physical examination was consistent with sciatica/radiculopathy most likely secondary to musculoskeletal injury and inflammation around the sciatic nerve. I did discuss this with the patient. Patient's dizziness may be secondary to vertigo but she has no symptoms at this time in her neurologic exam was normal. Patient's laboratory evaluation was unremarkable and EKG was normal. Patient was given prescriptions for prednisone 60 mg once a day for 7 days, cyclobenzaprine 10 mg q.6 hours as needed for spasm. She was also advised to take Tylenol 1000 mg every 8 hours as needed for pain. She was given printed and verbal instructions on back and sciatica and discharged home. She was also given a work note. Lab Data MDM Lab Attestation statement: I reviewed the patient's lab results. My interpretation patient's laboratory evaluation as follows: CBC was normal. CMP was normal. Troponin was below detectable limits. Coags were negative. COVID-19, influenza and RSV were negative. Urinalysis was negative. 04/19/24 19:19 04/19/24 19:19 Labs: Lab Results 04/19/24 Range/Units 19:19 WBC 7.3 (4.8-10.8) X10*3/uL RBC 4.14 L (4.20-5.50) X10*6/uL Hgb 13.2 (12.0-16.0) g/dl Hct 38.2 (37.0-47.0) % MCV 92.3 (80.0-98.0) fL MCH 31.9 (27.0-33.0) pg MCHC 34.6 (31.0-35.0) g/dl RDW 12.6 (11.0-16.0) % Plt Count 212 (160-400) X10*3/uL MPV 10.2 (9.4-12.3) fL Immature Gran % (Auto) 0.3 (0.0-0.4) % Neut % (Auto) 67.7 (45-73) % Lymph % (Auto) 21.4 (20-40) % Noble % (Auto) 6.1 (2-11) % Eos % (Auto) 4.1 H (0-4) % Baso % (Auto) 0.4 (0-2) % Lymph # (Auto) 1.6 (1.2-4.9) X10*3/uL Noble # (Auto) 0.5 (0.1-1.2) X10*3/uL Eos # (Auto) 0.3 (0.0-0.4) X10*3/uL Baso # (Auto) 0.0 (0.0-0.2) X10*3/uL Abs Immat Gran (auto) 0.02 (0.00-0.03) X10*3/uL Absolute Neuts (auto) 5.0 (2.0-8.3) x10*3/uL Absolute Nucleated RBC 0.000 (0.0-0.012) X10*3/uL Nucleated RBC % (auto) 0.0 (0.0-0.2) /100WBC PT 11.6 (10.9-12.4) SEC INR 1.0 (0.9-1.1) APTT 29.6 (26.0-36.8) SEC Sodium 143 (135-145) mmol/L Potassium 3.8 (3.3-5.1) mmol/L Chloride 110 H (96-108) mmol/L Carbon Dioxide 24 (22-29) mmol/L Anion Gap 13 (12-20) BUN 16 (9-16) mg/dL Creatinine 0.76 (0.5-1.4) mg/dL Estim Creat Clear Calc 95.8 Estimated GFR > 60 Random Glucose 113 (60-115) mg/dL Calcium 9.1 (8.4-10.2) mg/dL Magnesium 2.0 (1.6-2.6) mg/dL Total Bilirubin 0.2 (0.0-1.0) mg/dL AST 19 (5-31) U/L ALT 22 (0-31) U/L Alkaline Phosphatase 100 (39-117) U/L Troponin I High Sens < 2.7 (<3.5-17.0) ng/L Total Protein 7.1 (6.5-8.0) g/dL Albumin 4.0 (3.5-5.0) g/dL Urine Color Yellow Urine Appearance Clear Urine pH 5.5 (5.0-9.0) Ur Specific [place] 1.020 (1.005-1.025) Urine Protein Negative (Neg-Trace) mg/dL Urine Glucose (UA) Negative (Negative) mg/dL Urine Ketones Negative (Negative) mg/dL Urine Blood Negative (Negative) Urine Nitrite Negative (Negative) Ur Leukocyte Esterase Trace H (Negative) Urine RBC 0-2 (0-2) /HPF Urine WBC 0-5 (0-5) /HPF Ur Squamous Epith Cells 0-2 (0-2) /HPF Urine Bacteria None Seen (None Seen) Hyaline Casts 0-2 (0-2) /LPF Influenza Type A (PCR) NEGATIVE (Negative) Influenza Type B (PCR) NEGATIVE (Negative) RSV RNA Qual (PCR) NEGATIVE (Negative) SARS-CoV-2 RNA (RT-PCR) NEGATIVE (Negative) Independent Interpretation I performed an independent interpretation of an: EKG Interpretation: Patient's 12 EKG done at 19:01 hours is as follows: Normal sinus rhythm rate of 62, normal IL interval, QRS duration QTC interval, no ST segment elevation, no ST segment depression, no PACs, no PVCs Discharge Plan Discharge Clinical Impression: Lumbar back pain with radiculopathy affecting left lower extremity, Vertigo Patient Disposition: Home, Self-Care Instructions: Sciatica (ED), Vertigo (ED) Additional Instructions: Back Pain Discharge Instructions: Take prednisone 20 mg pills, 3 pills once a day for 7 days. While you ?are taking prednisone, do not take any NSAIDs (Motrin, Advil, ibuprofen, Aleve, naproxen). Take Tylenol (acetaminophen) 500 mg pills, 2 pills every 6 hours as needed for pain. Take Flexeril (cyclobenzaprine) 10 mg pills, 1 pill every 8 hours as needed for pain or muscle spasm. This is a prescription medication. This medication will make you sleepy, therefore do not drive or work while taking this medication. Apply ice for 15 minutes to the area that hurts on your back, then apply a heating a pad on low for 15 minutes. Do this 4-6 times a day to help reduce the pain in your back. Continue with normal activities as tolerated since staying in bed and not moving around will make your pain worse. You can also try over the counter lidocaine patches as directed on the box to help with the pain. Please return to the Emergency Department or see your doctor immediately if your symptoms get worse or if you develop any new symptoms that are concerning you. Follow up with your doctor in 2 day. Please read the other printed discharge instructions on back pain. Please see the work note Prescriptions: New cyclobenzaprine 10 mg tablet 10 mg PO TID PRN (Reason: pain, muscle spasm) Qty: 15 0RF prednisone 20 mg tablet 60 mg PO DAILY 7 Days Qty: 21 0RF No Action naproxen [Naprosyn] 500 mg tablet 500 mg PO BID Qty: 20 0RF cyclobenzaprine 5 mg tablet 5 mg PO TID PRN (Reason: muscle spasm) Qty: 10 0RF meloxicam 15 mg tablet 15 mg PO DAILY Qty: 5 0RF budesonide-formoterol [Symbicort] 80-4.5 mcg/actuation HFA aerosol inhaler 2 puff inhalation albuterol sulfate [Ventolin HFA] 90 mcg/actuation HFA aerosol inhaler 2 puff inhalation Q4-6H PRN albuterol sulfate 2.5 mg /3 mL (0.083 %) solution for nebulization inhalation TID PRN (Reason: wheezing) fluticasone propionate 50 mcg/actuation spray,suspension 1 spray intranasal DAILY gabapentin 300 mg capsule PO .prn acetaminophen 500 mg tablet 500 mg PO Q6H PRN (Reason: mild pain) lidocaine 5 % adhesive patch,medicated 1 patch topical DAILY PRN Rx Instructions: leave on most painful area for up to 12 hrs pantoprazole 40 mg tablet,delayed release (DR/EC) 40 mg PO DAILY Qty: 30 2RF Rx Instructions: take one tablet half an hour before breakfast Citrucel 500 mg tablet 500 mg PO DAILY Qty: 30 2RF Rx Instructions: take it with full glass of water cholecalciferol (vitamin D3) 50 mcg (2,000 unit) capsule 50 mcg PO DAILY Qty: 90 3RF Stand Alone Forms: Work/School Release Print Language: Paraguayan
--- NOTE | 2024-04-19 19:04 | ECG_ITS ---
Test Reason : dizziness, weakness Blood Pressure : / mmHG Vent. Rate : 062 BPM Atrial Rate : 062 BPM P-R Int : 158 ms QRS Dur : 072 ms QT Int : 406 ms P-R-T Axes : 041 016 019 degrees QTc Int : 412 ms Normal sinus rhythm Normal ECG When compared with ECG of 28-JAN-2024 03:40, No significant change was found Referred By: Cecile Berger Electronically Signed By:DONITA ROJAS
[2024-04-19 19:28] LABS: MANUAL DIFF FLAG NO
[2024-04-19 19:29] LABS: Basophils Percent Auto 0.4 % (0-2); Eosinophils Absolute Auto 0.3 X10*3/uL (0.0-0.4); Eosinophils Percent Auto 4.1 % (0-4); Hematocrit 38.2 % (37.0-47.0); Hemoglobin 13.2 g/dl (12.0-16.0); Imm Gran Abs Auto 0.02 X10*3/uL (0.00-0.03); Imm Gran Pct Auto 0.3 % (0.0-0.4); Lymphocytes Absolute Auto 1.6 X10*3/uL (1.2-4.9); Lymphocytes Percent Auto 21.4 % (20-40); Mean Corpuscular HGB Conc 34.6 g/dl (31.0-35.0); Mean Corpuscular Hemoglobin 31.9 pg (27.0-33.0); Mean Corpuscular Volume 92.3 fL (80.0-98.0); Mean Platelet Volume 10.2 fL (9.4-12.3); Monocytes Absolute Auto 0.5 X10*3/uL (0.1-1.2); Monocytes Percent Auto 6.1 % (2-11); Neutrophils Percent Auto 67.7 % (45-73); Platelet Count 212 X10*3/uL (160-400); Red Blood Count 4.14 X10*6/uL (4.20-5.50); Red Cell Distribution Width 12.6 % (11.0-16.0); White Blood Count 7.3 X10*3/uL (4.8-10.8)
[2024-04-19 19:31] LABS: Appearance Urine Clear; Color Urine Yellow; Glucose Urine UA Negative (Negative); Leukocyte Esterase Urine Trace (Negative); Nitrite Urine Negative (Negative); PH 5.5 (5.0-9.0); UMIC TRIGGER UACC YES; Urine Blood Negative (Negative); Urine Ketones Negative (Negative); Urine Protein Negative (Neg-Trace)
[2024-04-19 19:36] LABS: Bacteria Urine None Seen (None Seen); Hyaline Casts Urine 0-2 /LPF (0-2); RBC Urine 0-2 /HPF (0-2); Squamous Epithelial Cell Urine 0-2 /HPF (0-2); WBC Urine 0-5 /HPF (0-5)
[2024-04-19 19:37] LABS: Prothrombin Time 11.6 SEC (10.9-12.4)
[2024-04-19 19:39] LABS: Partial Thromboplastin Time 29.6 SEC (26.0-36.8)
[2024-04-19 19:46] LABS: Alanine Aminotransferase 22 U/L (0-31); Alkaline Phosphatase 100 U/L (39-117); Anion Gap 13 (12-20); Aspartate Amino Transferase 19 U/L (5-31); Bilirubin Total 0.2 mg/dL (0.0-1.0); Blood Urea Nitrogen 16 mg/dL (9-16); Calcium 9.1 mg/dL (8.4-10.2); Carbon Dioxide 24 mmol/L (22-29); Chloride 110 mmol/L (96-108); Creatinine Clr Calc Pharmacy 95.8; Estimated Glomerular Filt Rate > 60; Glucose Random 113 mg/dL (60-115); Potassium 3.8 mmol/L (3.3-5.1); Sodium 143 mmol/L (135-145); Total Protein 7.1 g/dL (6.5-8.0)
[2024-04-19 19:54] LABS: Troponin-I High Sensitivity < 2.7 ng/L (<3.5-17.0)
[2024-04-19 20:06] LABS: Influenza A PCR NEGATIVE (Negative); Influenza B PCR NEGATIVE (Negative); Resp Syncy Virus RNA Qual PCR NEGATIVE (Negative); SARS COV2 PCR INHOUSE NEGATIVE (Negative)
[2024-04-19 22:48] VITALS: BP 144/87; PULSE 68; RESP 18; TEMP 37; O2SAT 98
== END 2024-04-19 22:49 | disposition home or self-care (01) ==
PROVIDERS: Physician Assistant Medical; Emergency Provider Emergency Medicine Emergency Medical Services; PCP Internal Medicine
DX: M54.16 Radiculopathy, lumbar region (principal); M54.42 Lumbago with sciatica, left side; R42 Dizziness and giddiness; Z03.818 Encounter for observation for suspected exposure to other biological agents ruled out; J45.909 Unspecified asthma, uncomplicated; Z79.899 Other long term (current) drug therapy
CPT/HCPCS: 0241U; 80053; 81001; 83735; 84484; 85025; 85610; 85730; 93005; 99283

== ENCOUNTER 2024-04-21 12:25 | Day surgery (SDC) | payer MEDICAID, SELFPAY ==
[2024-04-21 13:07] VITALS: BMI 46.2
[2024-04-21 13:12] VITALS: BP 122/66; PULSE 62; RESP 16; TEMP 36.6; O2SAT 98
--- NOTE | 2024-04-21 13:15 | HO.ANESPROP2 ---
Documented by User: Alexus Morse NP 04/17/24 13:58 HPI - Anesthesia Eval Consult details Narrative: 54yo F for D&C Hysteroscopy,possible myomectomy,possible polypectomy, Follows [facility] for precordial CP. Last visit 05/2023 an unclear report of loss of consciousness requiring CPR while in [place] in the past . Spoke with her about this today and she states she was told it was from the lipoma in her chest. Cardiac evaluation through our office includes EKG done 12/26/2022 shows sinus rhythm with no acute ST or T-wave abnormalities. Echocardiogram done 01/10/2023 shows EF 60-65%, no regional wall motion abnormalities, RV, atriums normal size. A CTA of the coronary arteries was done on 02/23/2023 showing no coronary calcifications and no significant coronary artery disease. Reviewed these findings with her. Since last visit she did undergo thoracic surgery for removal of the lipoma. Her prior chest discomfort has since resolved. With her history CPR/ unclear events. Will arrange for cardiology follow-up in 1 year, sooner if needed. Emergency care if ever needed for any concerning symptoms PMFSH Active Problems Active Problems: All Active Problems GERD (gastroesophageal reflux disease) (Acute) DJD (degenerative joint disease) (Acute) Postmenopausal bleeding (Acute) Vaginal discharge (Acute) Precordial chest pain (Acute) Chest mass (Acute) Cardiovascular collapse (Acute) Asthma (Acute) Morbid obesity (Acute) Fatty liver disease, nonalcoholic (Acute) At risk for sexually transmitted disease due to partner with HIV (Acute) Low back pain with sciatica (Acute) Dysfunctional uterine bleeding (Acute) TMJ (dislocation of temporomandibular joint) (Acute) HPV (human papilloma virus) anogenital infection (Acute) Eczema (Acute) Past Medical History Medical History (Updated 04/20/24 @ 00:01 by Tami Romero) Left chest thoracotomy scar GERD (gastroesophageal reflux disease) DJD (degenerative joint disease) Lipoma of lung History of COVID-19 Morbid obesity Hypovitaminosis D Asthma Family History Family History Mother Hypertension Diabetes Father Cancer Daughter No problems noted. Son Asthma Son Hypoglycemia Surgical History Surgical History (Updated 04/21/24 @ 13:07 by Aleyda Schaeffer RN) History of lung surgery History of colonoscopy History of cholecystectomy History of bilateral tubal ligation History of Social History Social History Household Members: Children Alcohol intake: current Alcohol intake frequency: a few times a month Patient Tobacco Use Status: Former Tobacco user Use of substances other than those prescribed or required for medical reasons: No Are you DNR?: No Advance Directives: No Advance Directives Information Provided: Yes Advance Directives on File: No Recently lost weight without trying: No Nutrition Risks: No Nutritional Risk Patient : No Current occupational status: employed 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 Sexual orientation: Straight/Heterosexual Gender identity: Female Meds Allergies Allergy/AdvReac Type Severity Reaction Status Date / Time No Known Allergies Allergy Verified 04/19/24 18:59 [No Known Allergies*] Home Medications ?Medication ?Instructions ?Recorded ?Confirmed ?Last Taken ?Type budesonide-formoterol HFA 80 2 puff inhalation 12/21/22 04/04/24 Unknown History mcg-4.5 mcg/actuation aerosol inhaler (Symbicort) acetaminophen 500 mg tablet 500 mg PO Q6H PRN mild pain 05/21/23 04/04/24 Unknown History albuterol sulfate 2.5 mg/3 mL mg inhalation TID PRN wheezing 08/16/23 04/04/24 Unknown History (0.083 %) solution for nebulization albuterol sulfate 90 mcg/actuation 2 puff inhalation Q4-6H PRN 08/16/23 04/04/24 Unknown History aerosol inhaler (Ventolin HFA) lidocaine 5 % topical patch 1 patch topical DAILY PRN 11/09/23 04/04/24 Unknown History fluticasone propionate 50 1 spray intranasal DAILY 02/29/24 04/04/24 Unknown History mcg/actuation nasal spray,suspension gabapentin 300 mg capsule mg PO .prn 03/06/24 04/04/24 Unknown History Exam Narrative Narrative: EKG 7 Vent. Rate : 061 BPM Atrial Rate : 061 BPM P-R Int : 168 ms QRS Dur : 072 ms QT Int : 402 ms P-R-T Axes : 036 015 025 degrees QTc Int : 404 ms Normal sinus rhythm Normal ECG When compared with ECG of 13-JAN-2024 14:24, Nonspecific T wave abnormality no longer evident in Anterior leads/ Assessment and Plan Assessment Anesthesia Assessment: Chart Reviewed Documented by User: Michelle Russ DO 04/21/24 13:19 PMF Past Medical History Medical History (Updated 04/20/24 @ 00:01 by Tami Romero) Left chest thoracotomy scar GERD (gastroesophageal reflux disease) DJD (degenerative joint disease) Lipoma of lung History of COVID-19 Morbid obesity Hypovitaminosis D Asthma Family History Family History Mother Hypertension Diabetes Father Cancer Daughter No problems noted. Son Asthma Son Hypoglycemia Family history of problems with anesthesia: No Surgical History Surgical History (Updated 04/21/24 @ 13:07 by Aleyda Schaeffer RN) History of lung surgery History of colonoscopy History of cholecystectomy History of bilateral tubal ligation History of History of Problems with Anesthesia: No Social History Social History Household Members: Children Alcohol intake: current Alcohol intake frequency: a few times a month Patient Tobacco Use Status: Former Tobacco user Use of substances other than those prescribed or required for medical reasons: No Are you DNR?: No Advance Directives: No Advance Directives Information Provided: Yes Advance Directives on File: No Recently lost weight without trying: No Nutrition Risks: No Nutritional Risk Patient : No Current occupational status: employed 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 Sexual orientation: Straight/Heterosexual Gender identity: Female Meds Allergies Allergy/AdvReac Type Severity Reaction Status Date / Time No Known Allergies Allergy Verified 04/19/24 18:59 [No Known Allergies*] Home Medications ?Medication ?Instructions ?Recorded ?Confirmed ?Last Taken ?Type budesonide-formoterol HFA 80 2 puff inhalation 12/21/22 04/04/24 Unknown History mcg-4.5 mcg/actuation aerosol inhaler (Symbicort) acetaminophen 500 mg tablet 500 mg PO Q6H PRN mild pain 05/21/23 04/04/24 Unknown History albuterol sulfate 2.5 mg/3 mL mg inhalation TID PRN wheezing 08/16/23 04/04/24 Unknown History (0.083 %) solution for nebulization albuterol sulfate 90 mcg/actuation 2 puff inhalation Q4-6H PRN 08/16/23 04/04/24 Unknown History aerosol inhaler (Ventolin HFA) lidocaine 5 % topical patch 1 patch topical DAILY PRN 11/09/23 04/04/24 Unknown History fluticasone propionate 50 1 spray intranasal DAILY 02/29/24 04/04/24 Unknown History mcg/actuation nasal spray,suspension gabapentin 300 mg capsule mg PO .prn 03/06/24 04/04/24 Unknown History Exam Exam Date and Time: 04/21/24 1315 Height,Weight and Vital Signs: Height 5 ft 2 in Weight 114.532 kg Airway Mallampati Class: III TM Dist: >3cm Neck ROM: Full Loose/Missing/Broken Teeth: No (patient denies any loose or broken teeth) Heart: S1S2 Lungs: CTAB Assessment and Plan Assessment Anesthesia Assessment: Anesthesia Plan Discussed and Chart Reviewed Final Anesthetic Review Family History of Problems with Anesthesia: No History of Problems with Anesthesia: No NPO: Yes ASA Class: III Final Preanesthetic Review: No Changes in Pt Med Stat, Meds/Allgs Chart Reviewed, Consent Obtained/Reviewed (filling hauler at bedside for translation) and Anes Risks/Benef Reviewed Patient Risk: Intermediate Procedure Risk: Low Anesthetic Plan Anesthetic Plan: MAC: and Agree w/ Assess. and Plan Disposition: Standard PACU
[2024-04-21] MEDS: Lactated Ringers 1,000 ML 100 ML IVCONT (13:24)
--- NOTE | 2024-04-21 13:29 | MHC.SHP ---
Pre-Procedural Eval Section A - 24 Hr Update-Section A only Date of Service: 04/21/24 Section B - Complete if H&P > 30 days Chief Complaint: Postmenopausal bleeding Allergies: Allergies Allergy/AdvReac Type Severity Reaction Status Date / Time No Known Allergies Allergy Verified 04/19/24 18:59 [No Known Allergies*] Plan I have reviewed the history and physical and performed a pertinent physical examination on my patient. No changes have occurred unless specified. Time Spent With Patient Time: Total time managing care of this patient today ____ minutes.
--- NOTE | 2024-04-21 13:30 | MHC.SHP ---
Pre-Procedural Eval Section A - 24 Hr Update-Section A only Date of Service: 04/21/24 The patient is an INPATIENT: No Changes since office visit: No Cold of Flu in the past 2 weeks, No New Medical Problems, No Changes in Medication and No Patient answered all questions The patient has been examined within 24 hours of the surgical procedure. The History & Physical has been completed within 30 days and I have reviewed it.: Yes Section B - Complete if H&P > 30 days Chief Complaint: Postmenopausal bleeding Allergies: Allergies Allergy/AdvReac Type Severity Reaction Status Date / Time No Known Allergies Allergy Verified 04/19/24 18:59 [No Known Allergies*] Plan Diagnosis/Plan: Unchanged I have reviewed the history and physical and performed a pertinent physical examination on my patient. No changes have occurred unless specified. Time Spent With Patient Time: Total time managing care of this patient today ____ minutes.
--- NOTE | 2024-04-21 14:05 | PM.OP ---
Brief Operative Note Date of Service: 04/21/24 Pre-op diagnosis: Postmenopausal bleeding Post-op diagnosis: same (Normal endometrial cavity) Procedure: Hysteroscopy D&C Surgeon: Juan Jose Gill MD Anesthesia: GLMA Was an Scrap Dealer used for this Procedure?: No Estimated blood loss (mL): 0 Pathology: other (Endometrial Scrapping. Polyp) Condition: stable Disposition: PACU
--- NOTE | 2024-04-21 14:05 | W.PM.OPN ---
Operative Note Operative Note Date of Service: 04/21/24 Narrative: Preop Diagnosis: Post Menopausal bleeding Operation: Diagnostic Hysteroscopy, Dilataion & Curettage Post Op Diagnosis: Normal endometrial cavity QBL: Minimal Anesthesia: GLMA Surgeon: Juan Jose Gill MD Waiter/Waitress Captain: None Complication: None Pathology: Endometrial Scrapings Procedure: The patient was put in the dorsal lithotomy position, scrubbed, and draped in the usual manner. A sterile speculum was inserted in the patient's vagina. The anterior lip of the cervix was grasped with a single tooth tenaculum. The cervix was dilated up to 5 mm, then the scope was inserted in the patient's uterus. Inspection revealed Normal endometrial cavity. The Myosure Reach device was used; the scope was removed from the endometrial cavity , sharp curettings was carried on with minimal to moderate amount of tissues retrieved. At the end of the procedure, all instruments were taken out of the patient uterine and vaginal cavity. The single tooth tenaculum was removed and homeostasis was assured using pressure,. The patient tolerated the procedure well and was transferred to the PACU in a stable condition.
[2024-04-21 14:15] VITALS: BP 98/48; PULSE 71; RESP 16; TEMP 36.1; O2SAT 97
[2024-04-21 14:20] VITALS: BP 112/69; PULSE 65; RESP 17; O2SAT 99
[2024-04-21] MEDS: Acetaminophen 325 MG TABLET 650 MG PO (14:24)
[2024-04-21 14:25] VITALS: BP 111/50; PULSE 56; RESP 17; O2SAT 100
[2024-04-21 14:30] VITALS: BP 124/69; PULSE 57; RESP 17; O2SAT 100
[2024-04-21 14:46] VITALS: BP 122/64; PULSE 54; RESP 17; TEMP 36.1
== END 2024-04-21 15:29 | disposition home or self-care (01) ==
PROVIDERS: PCP Internal Medicine; Visit Provider Obstetrics & Gynecology
PROC: 0UDB8ZZ Extraction of Endometrium, Via Natural or Artificial Opening Endoscopic (ICD-10-PCS; CPT 58558; principal; 2024-04-21 13:20)
DX: N95.0 Postmenopausal bleeding (principal); J45.909 Unspecified asthma, uncomplicated; E55.9 Vitamin D deficiency, unspecified; E66.01 Morbid (severe) obesity due to excess calories; Z68.41 Body mass index [BMI] 40.0-44.9, adult; Z79.51 Long term (current) use of inhaled steroids; Z79.899 Other long term (current) drug therapy; Z98.51 Tubal ligation status; Z98.890 Other specified postprocedural states; Z87.891 Personal history of nicotine dependence
CPT/HCPCS: 58558; 88305; J1885; J2003; J2405; J2704; J3010

== ENCOUNTER → 2024-04-21 12:25 | Outpatient (BNV) | payer MEDICAID, SELFPAY | PROVIDERS: PCP Internal Medicine; Visit Provider Obstetrics & Gynecology | DX: N95.0 Postmenopausal bleeding (principal) | CPT/HCPCS: 58558 ==

== ENCOUNTER 2024-04-24 13:52 | Outpatient (AMB) | payer MEDICAID, SELFPAY ==
--- NOTE | 2024-04-24 14:06 | A.OFFVIS_ITS ---
Vital Signs 04/24/24 14:11 Height 5 ft 3 in Weight 244 lb BMI 43.2 Intake Visit Reasons: post op Civil Division Commander Deputy Sheriff Required: Yes Civil Division Commander Deputy Sheriff Language: Motorcycle Riding Instructor Services: Civil Division Commander Deputy Sheriff Present (in person) Civil Division Commander Deputy Sheriff Name: Mallorie GTZ Information Interpreted: non-clinical & clinical Accompanied by: Self / Same As Patient Allergies No Known Allergies [No Known Allergies*] Allergy (Verified 04/24/24 14:24) HPI Comments Details: The patient is presenting post hysteroscopy D&C no complaints minimal vaginal bleeding no feverishness chills or abdominal pain. The pathology showed the fo llowing: Endometrium, curettage: Endometrial intraepithelial neoplasia, at least Last co testing was in 08/05 was negative PFSH Medical History Left chest thoracotomy scar GERD (gastroesophageal reflux disease) DJD (degenerative joint disease) Lipoma of lung History of COVID-19 Morbid obesity Hypovitaminosis D Asthma Surgical History History of lung surgery History of colonoscopy History of cholecystectomy History of bilateral tubal ligation History of Family History Mother Hypertension Diabetes Father Cancer Daughter No problems noted. 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 Sexual orientation: Straight/Heterosexual Gender identity: Female Female Reproductive History Menstrual Age of Menarche: 9 Review of Systems Const All systems reviewed & are unremarkable except as noted in HPI and below Reports as per HPI and Reports no additional complaints GI Reports no additional complaints Reports no additional complaints Physical Exam Vital Signs: BMI result Body Mass Index 43.2 Assessment & Plan Assessment & Plan (1) EIN (endometrial intraepithelial neoplasia): Comment: At least on pathology report Code(s): N85.02 - Endometrial intraepithelial neoplasia [EIN] Category: Medical Plan: Discussed with the patient the pathology of endometrial biopsy showing endometrial intraepithelial neoplasia, at least. Discussed with the patient the following: -If untreated the risk of progression of EIN to endometrial carcinoma is 83 percent, -Coexistent endometrial carcinoma may be present in up to 40 percent of patients with EH with atypia -Given the high risk of concurrent, or progression to, endometrial carcinoma, for most postmenopausal patients a hysterectomy for treatment of EIN is the preferred treatment. -Other options of treatment discussed with the patient include Progestin therapy: A- levonorgestrel (LNG)-releasing intrauterine device (IUD; LNG 52) B-oral progestins. All pros and cons, risks and benefits of each were discussed with the patient, the patient decided to proceed with surgical management, will refer to [facility] at [facility] for further management. Appointment scheduled with Dr. Eldridge on 05/12 at 13:00, the patient aware Orders: Referrals Gynecologic Oncology Referral N85.02 - Endometrial intraepithelial neoplasia [EIN] Coding Level of Care Code Est Pt Level 3 (06190) Diagnoses EIN (endometrial intraepithelial neoplasia) N85.02
[2024-04-24 14:11] VITALS: BMI 43.2
== END 2024-04-24 15:01 | disposition home or self-care (01) ==
PROVIDERS: PCP Internal Medicine; Visit Provider Obstetrics & Gynecology
DX: N85.02 Endometrial intraepithelial neoplasia [EIN] (principal)
CPT/HCPCS: 99213

== ENCOUNTER → 2024-04-24 13:52 | Outpatient (BNVA) | payer MEDICAID, SELFPAY | PROVIDERS: PCP Internal Medicine; Visit Provider Obstetrics & Gynecology | DX: N85.02 Endometrial intraepithelial neoplasia [EIN] (principal) | CPT/HCPCS: 99212 ==

== ENCOUNTER 2024-05-07 09:30 | Day surgery (SDC) | payer MEDICAID, SELFPAY ==
[2024-05-06 08:22] VITALS: BMI 43.4
--- NOTE | 2024-05-06 08:30 | HO.ANESPROP2 ---
Documented by User: Alexus Morse NP 05/06/24 08:32 HPI - Anesthesia Eval Consult details Narrative: 54yo F for Upper Endoscopy Hx Left thoracotomy PMFSH Active Problems Active Problems: All Active Problems EIN (endometrial intraepithelial neoplasia) (Acute) Postmenopausal bleeding (Acute) Vaginal discharge (Acute) Precordial chest pain (Acute) At risk for sexually transmitted disease due to partner with HIV (Acute) Cardiovascular collapse (Acute) Chest mass (Acute) Low back pain with sciatica (Acute) Dysfunctional uterine bleeding (Acute) TMJ (dislocation of temporomandibular joint) (Acute) Asthma (Acute) HPV (human papilloma virus) anogenital infection (Acute) Eczema (Acute) Fatty liver disease, nonalcoholic (Acute) GERD (gastroesophageal reflux disease) (Acute) DJD (degenerative joint disease) (Acute) Morbid obesity (Acute) Past Medical History Medical History Left chest thoracotomy scar GERD (gastroesophageal reflux disease) DJD (degenerative joint disease) Lipoma of lung History of COVID-19 Morbid obesity Hypovitaminosis D Asthma Family History Family History Mother Hypertension Diabetes Father Cancer Daughter No problems noted. Son Asthma Son Hypoglycemia Family history of problems with anesthesia: No Surgical History Surgical History History of lung surgery History of colonoscopy History of cholecystectomy History of bilateral tubal ligation History of History of Problems with Anesthesia: No Social History Social History Household Members: Children Alcohol intake: current Alcohol intake frequency: does not drink Patient Tobacco Use Status: Former Tobacco user Use of substances other than those prescribed or required for medical reasons: No Are you DNR?: No Advance Directives: No Advance Directives Information Provided: Yes Current occupational status: employed 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 [employer] Sexual orientation: Straight/Heterosexual Gender identity: Female Meds Allergies Allergy/AdvReac Type Severity Reaction Status Date / Time No Known Allergies Allergy Verified 04/24/24 14:24 [No Known Allergies*] Home Medications ?Medication ?Instructions ?Recorded ?Confirmed ?Last Taken ?Type budesonide-formoterol HFA 80 2 puff inhalation 12/21/22 04/04/24 Unknown History mcg-4.5 mcg/actuation aerosol inhaler (Symbicort) albuterol sulfate 2.5 mg/3 mL mg inhalation TID PRN wheezing 08/16/23 04/04/24 Unknown History (0.083 %) solution for nebulization albuterol sulfate 90 mcg/actuation 2 puff inhalation Q4-6H PRN 08/16/23 05/07/24 05/07/24 07:00 History aerosol inhaler (Ventolin HFA) Wheezing fluticasone propionate 50 1 spray intranasal DAILY 02/29/24 05/07/24 Unknown History mcg/actuation nasal spray,suspension gabapentin 300 mg capsule mg PO .prn 03/06/24 04/04/24 Unknown History Exam Height,Weight and Vital Signs: Height 5 ft 3 in Weight 111.13 kg Pertinent Lab Results Pertinent Lab Results: Laboratory Tests 04/19/24 19:19 WBC 7.3 Hgb 13.2 Hct 38.2 Plt Count 212 Sodium 143 Potassium 3.8 Chloride 110 H Carbon Dioxide 24 BUN 16 Creatinine 0.76 Narrative Narrative: EKG 04/2024 Vent. Rate : 062 BPM Atrial Rate : 062 BPM P-R Int : 158 ms QRS Dur : 072 ms QT Int : 406 ms P-R-T Axes : 041 016 019 degrees QTc Int : 412 ms Normal sinus rhythm Normal ECG When compared with ECG of 28-JAN-2024 03:40, No significant change was found Assessment and Plan Assessment Anesthesia Assessment: Chart Reviewed Final Anesthetic Review Family History of Problems with Anesthesia: No History of Problems with Anesthesia: No Documented by User: Analisa Chris MD 05/07/24 12:24 [facility] Past Medical History Medical History Left chest thoracotomy scar GERD (gastroesophageal reflux disease) DJD (degenerative joint disease) Lipoma of lung History of COVID-19 Morbid obesity Hypovitaminosis D Asthma Family History Family History Mother Hypertension Diabetes Father Cancer Daughter No problems noted. Son Asthma Son Hypoglycemia Family history of problems with anesthesia: No Surgical History Surgical History History of lung surgery History of colonoscopy History of cholecystectomy History of bilateral tubal ligation History of History of Problems with Anesthesia: No Social History Social History Household Members: Children Alcohol intake: current Alcohol intake frequency: does not drink Patient Tobacco Use Status: Former Tobacco user Use of substances other than those prescribed or required for medical reasons: No Are you DNR?: No Advance Directives: No Advance Directives Information Provided: Yes Current occupational status: employed 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 [employer] Sexual orientation: Straight/Heterosexual Gender identity: Female Meds Allergies Allergy/AdvReac Type Severity Reaction Status Date / Time No Known Allergies Allergy Verified 04/24/24 14:24 [No Known Allergies*] Home Medications ?Medication ?Instructions ?Recorded ?Confirmed ?Last Taken ?Type budesonide-formoterol HFA 80 2 puff inhalation 12/21/22 04/04/24 Unknown History mcg-4.5 mcg/actuation aerosol inhaler (Symbicort) albuterol sulfate 2.5 mg/3 mL mg inhalation TID PRN wheezing 08/16/23 04/04/24 Unknown History (0.083 %) solution for nebulization albuterol sulfate 90 mcg/actuation 2 puff inhalation Q4-6H PRN 08/16/23 05/07/24 05/07/24 07:00 History aerosol inhaler (Ventolin HFA) Wheezing fluticasone propionate 50 1 spray intranasal DAILY 02/29/24 05/07/24 Unknown History mcg/actuation nasal spray,suspension gabapentin 300 mg capsule mg PO .prn 03/06/24 04/04/24 Unknown History Exam Height,Weight and Vital Signs: Height 5 ft 3 in Weight 111.13 kg Vital Signs Temp Pulse Resp BP Pulse Ox 05/07/24 11:34 96.5 F L 58 16 133/73 98 Airway Mallampati Class: II TM Dist: >3cm Neck ROM: Full Loose/Missing/Broken Teeth: Yes (Missing tooth top right back. Denies broken or loose. Awaiting root canal top front) Heart: RRR Lungs: CTAB Assessment and Plan Assessment Anesthesia Assessment: Anesthesia Plan Discussed and Chart Reviewed Final Anesthetic Review Family History of Problems with Anesthesia: No History of Problems with Anesthesia: No NPO: Yes ASA Class: III Final Preanesthetic Review: No Changes in Pt Med Stat, Meds/Allgs Chart Reviewed, Consent Obtained/Reviewed and Anes Risks/Benef Reviewed Patient Risk: Intermediate Procedure Risk: Low Assessment/Block/Sedation in SS: Assess/Block/Sedation-SS Anesthetic Plan Anesthetic Plan: TIVA Disposition: Standard PACU
[2024-05-07 11:33] VITALS: BMI 43.6
[2024-05-07 11:34] VITALS: BP 133/73; PULSE 58; RESP 16; TEMP 35.8; O2SAT 98
--- NOTE | 2024-05-07 11:38 | MHC.SHP ---
Pre-Procedural Eval Section A - 24 Hr Update-Section A only Date of Service: 05/07/24 The patient is an INPATIENT: No The patient has been examined within 24 hours of the surgical procedure. The History & Physical has been completed within 30 days and I have reviewed it.: Yes Section B - Complete if H&P > 30 days Chief Complaint: Morbid (severe) obesity due to excess calories Details of Present Illness: GERD Relevant Family History (Specify if Yes): No Relevant Social History: None Present Medications: None Medical History: No relevant PMH History of Previous Operations: No relevant previous surgery Allergies: Allergies Allergy/AdvReac Type Severity Reaction Status Date / Time No Known Allergies Allergy Verified 04/24/24 14:24 [No Known Allergies*] Review of Systems Sugical H&P ROS: Negative: Constitution, Cardiovascular, Respiratory, Neurological, Psychiatric, Hem-Onc, Allergic/Immunologic, Gastrointestinal, Genitourinary, Musculoskeletal, Integumentary, Endocrine and Eyes/Ears/Nose/Throat Exam Surgical H&P Exam: Normal: HEENT, Normal: Heart, Normal: Lungs, Normal: Extremities, Normal: Abdomen, Normal: Skin and Normal: Neurological Plan Diagnosis/Plan: Unchanged (EGD to assess etiology of GERD. Risks of bleeding and perforation were discussed with the patient and she is in agreement with the plan.) I have reviewed the history and physical and performed a pertinent physical examination on my patient. No changes have occurred unless specified. Time Spent With Patient Time: Total time managing care of this patient today ____ minutes.
--- NOTE | 2024-05-07 11:39 | PM.OP ---
Brief Operative Note Date of Service: 05/07/24 Pre-op diagnosis: GERD Post-op diagnosis: same Procedure: PROCEDURE DATE: 05/07/2024 PREOPERATIVE DIAGNOSIS: GERD POSTOPERATIVE DIAGNOSIS: ?Same as above. 1) small hiatal hernia PROCEDURE: [id number] with biopsies Surgeon: Jared Del Valle M.D.. Ph.D. Crewman Armoured Personnel Carrier [id number]: None ? Anesthesia: IV sedation Estimated blood loss: ?Minimal FINDINGS AND PROCEDURE: ? OPERATIVE INDICATIONS: ?The patient is a 69 year old female known to me who is interested in bariatric surgery. The patient has GERD. Based on this information I recommended an upper endoscopy to evaluate the patient's symptoms. Risks and complications of the surgery were discussed with the patient in advance particularly the possibility of perforation or bleeding that may require surgical intervention. The patient understood the risks and was in agreement with the plan. ? PROCEDURE: After informed consent was obtained by the patient, the patient was ?transferred to the Operating Room and was placed in the supine position.? After successful induction of IV sedation, a mouth block was inserted and the patient was placed in the left lateral decubitus position. An upper endoscopy was performed next, the oropharynx and esophagus appeared within the normal limits. There was a small 3cm hiatal hernia. The z-line was smooth. Two biopsies were obtained from the distal esophagus 2-3 cm proximal to the GE junction and two additional biopsies from the GE junction. The stomach was entered and it appeared to be of normal size. There was no gastritis. There was no stricture or ulcer. A biopsy was obtained from the gastric fundus and the antrum. No significant bleeding was noted from any of the biopsy sites. Retroflexion of the scope confirmed the presence of a small diaphragmatic hernia. The scope was then advanced into the duodenum which appeared to be normal as well. At that point the duodenum ?and the stomach were decompressed and the scope was withdrawn from the patient's mouth. The patient extubated and was transferred in stable condition to the Recovery Room for further care. I was present and performed all steps of the procedure. There were no residents to assist with this case. Jorge L Del Valle M.D., Ph.D. Surgeon: Anthony Del Valle MD Anesthesia: MAC Was an Crewman Armoured Personnel Carrier [id number] used for this Procedure?: No Estimated blood loss (mL): 0 IV fluids (mL): 400 Urine output (mL): 0 (No [place] to record output) Pathology: other (1) antrum x1, 2) fundus x1, 3) GE junction x2, 4) distal esophagus x2) Condition: stable Disposition: PACU
[2024-05-07] MEDS: Lactated Ringers 1,000 ML 100 ML IVCONT (11:43)
[2024-05-07 12:50] VITALS: BP 117/77; PULSE 63; RESP 18; TEMP 36.1; O2SAT 98
[2024-05-07 13:05] VITALS: BP 114/72; PULSE 60; RESP 18; TEMP 36.3; O2SAT 98
== END 2024-05-07 14:14 | disposition home or self-care (01) ==
PROVIDERS: PCP Internal Medicine; Visit Provider Surgery
PROC: 0DJ08ZZ Inspection of Upper Intestinal Tract, Via Natural or Artificial Opening Endoscopic (ICD-10-PCS; CPT 43235; principal; 2024-05-07 12:00)
DX: K21.9 Gastro-esophageal reflux disease without esophagitis (principal); E66.01 Morbid (severe) obesity due to excess calories; Z68.41 Body mass index [BMI] 40.0-44.9, adult; K44.9 Diaphragmatic hernia without obstruction or gangrene; E55.9 Vitamin D deficiency, unspecified; J45.909 Unspecified asthma, uncomplicated; Z79.1 Long term (current) use of non-steroidal anti-inflammatories (NSAID); Z79.899 Other long term (current) drug therapy; Z87.891 Personal history of nicotine dependence; Z79.52 Long term (current) use of systemic steroids; Z98.890 Other specified postprocedural states
CPT/HCPCS: 43239; 88305; 88313; 88342; J1596; J2003; J2704

== ENCOUNTER → 2024-05-07 09:30 | Outpatient (BNV) | payer MEDICAID, SELFPAY | PROVIDERS: PCP Internal Medicine; Visit Provider Surgery | DX: K44.9 Diaphragmatic hernia without obstruction or gangrene (principal) | CPT/HCPCS: 43239 ==

== ENCOUNTER 2024-05-15 10:31 | Outpatient (REF) | payer MEDICAID, SELFPAY ==
[2024-05-15 11:16] LABS: MANUAL DIFF FLAG NO
[2024-05-15 11:37] LABS: Basophils Percent Auto 0.5 % (0-2); Eosinophils Absolute Auto 0.1 X10*3/uL (0.0-0.4); Eosinophils Percent Auto 2.4 % (0-4); Hematocrit 41.7 % (37.0-47.0); Hemoglobin 13.8 g/dl (12.0-16.0); Imm Gran Abs Auto 0.02 X10*3/uL (0.00-0.03); Imm Gran Pct Auto 0.3 % (0.0-0.4); Lymphocytes Absolute Auto 2.1 X10*3/uL (1.2-4.9); Lymphocytes Percent Auto 35.1 % (20-40); Mean Corpuscular HGB Conc 33.1 g/dl (31.0-35.0); Mean Corpuscular Hemoglobin 30.7 pg (27.0-33.0); Mean Corpuscular Volume 92.7 fL (80.0-98.0); Mean Platelet Volume 10.3 fL (9.4-12.3); Monocytes Absolute Auto 0.4 X10*3/uL (0.1-1.2); Monocytes Percent Auto 6.4 % (2-11); Neutrophils Absolute Auto 3.3 x10*3/uL (2.0-8.3); Neutrophils Percent Auto 55.3 % (45-73); Platelet Count 230 X10*3/uL (160-400); Red Cell Distribution Width 12.8 % (11.0-16.0)
[2024-05-15 11:41] LABS: Prothrombin Time 11.8 SEC (10.9-12.4)
[2024-05-15 11:44] LABS: Partial Thromboplastin Time 28.6 SEC (26.0-36.8)
[2024-05-15 11:46] LABS: Estimated Average Glucose 108 mg/dL; Hemoglobin A1C 124.0648 umol/L; Hemoglobin A1c % 5.4 % (<6.0); Total Hemoglobin (HGBA1C) 3505.0427 umol/L
[2024-05-15 12:08] LABS: Alanine Aminotransferase 26 U/L (0-31); Albumin Level 4.1 g/dL (3.5-5.0); Alkaline Phosphatase 86 U/L (39-117); Anion Gap 12 (12-20); Aspartate Amino Transferase 19 U/L (5-31); Bilirubin Total 0.4 mg/dL (0.0-1.0); Blood Urea Nitrogen 14 mg/dL (9-16); C Reactive Protein 0.39 mg/dL (< or = 0.50); Calcium 9.8 mg/dL (8.4-10.2); Carbon Dioxide 26 mmol/L (22-29); Chloride 108 mmol/L (96-108); Cholesterol 204 mg/dL (<200); Estimated Glomerular Filt Rate > 60; Glucose Random 87 mg/dL (60-115); HDL Cholesterol 93 mg/dL (>40); Iron 89 mcg/dL (30-160); LDL Cholesterol Calculated 92 mg/dL (<100); Percent Iron Saturation 31 % (15-50); Potassium 3.3 mmol/L (3.3-5.1); Sodium 143 mmol/L (135-145); Total Iron Binding Capacity 286 mcg/dL (228-428); Total Protein 7.2 g/dL (6.5-8.0); Triglycerides 96 mg/dL (<150); Unsaturated Iron Binding 197 ug/dL
[2024-05-15 12:23] LABS: Ferritin 185 ng/mL (10-250)
[2024-05-15 12:24] LABS: Insulin 14 uU/mL (2-29); TSH reflex Free T4 1.03 uIU/mL (0.32-4.0); Vitamin D 25-OH Total 34.7 ng/mL (>30)
[2024-05-15 12:46] LABS: Folate 11.4 ng/mL (> or = 4.0); Vitamin B12 682 pg/mL (200-900)
[2024-05-16 08:07] LABS: Ceruloplasmin 32 mg/dL (14-48)
[2024-05-16 10:18] LABS: Alpha Fetoprotein 3.4 ng/mL
[2024-05-19 03:48] LABS: Zinc 62 mcg/dL (60-130)
[2024-05-20 05:53] LABS: Smooth Muscle Antibody <20 U (<20)
[2024-05-20 10:09] LABS: Mitochondrial Antibodies NEGATIVE (NEGATIVE)
[2024-05-21 00:39] LABS: FIB-ALT 17 U/L (6-29); FIB-Alpha-2-Macroglobulin 217 mg/dL (106-279); FIB-Apolipoprotein A1 251 mg/dL (101-198); FIB-GGT 26 U/L (3-70); FIB-Haptoglobin 282 mg/dL (43-212); FIB-Total Bilirubin 0.3 mg/dL (0.2-1.2); Liver Fibrosis Score 0.03; Liver Fibrosis Stage F0; Nec Inflam Act Grade A0; Nec Inflam Act Score 0.04; Reference ID 5186346
[2024-05-21 06:33] LABS: Vitamin B1 15 nmol/L (8-30)
[2024-05-23 19:38] LABS: Vitamin A 48 mcg/dL (38-98)
== END 2024-05-15 10:32 | disposition home or self-care (01) ==
LOC: HO.LAB 10:31
PROVIDERS: Nurse Practitioner Family; PCP Internal Medicine; Visit Provider Surgery
DX: R79.89 Other specified abnormal findings of blood chemistry (principal); K76.0 Fatty (change of) liver, not elsewhere classified; K58.9 Irritable bowel syndrome, unspecified; E11.9 Type 2 diabetes mellitus without complications; R74.8 Abnormal levels of other serum enzymes; D64.9 Anemia, unspecified; E66.01 Morbid (severe) obesity due to excess calories; J45.909 Unspecified asthma, uncomplicated; K21.9 Gastro-esophageal reflux disease without esophagitis
CPT/HCPCS: 36415; 80053; 80061; 81596; 82105; 82306; 82390; 82607; 82728; 82746; 83036; 83525; 83540; 84425; 84443; 84590; 84630; 85025; 85610; 85730; 86015; 86140; 86381; 86850; 86870; 86900; 86901

== ENCOUNTER → 2024-05-16 11:54 | Outpatient (BNVA) | payer OTHER, MEDICAID, SELFPAY | PROVIDERS: PCP Internal Medicine; Visit Provider Counselor Mental Health ==

== ENCOUNTER → 2024-05-16 11:54 | Outpatient (AMB) | payer OTHER, SELFPAY ==
--- NOTE | 2024-05-16 12:00 | A.OFFWM_ITS ---
Intake Intake Visit Reasons: OV BH Intake Allergies No Known Allergies [No Known Allergies*] Allergy (Verified 04/24/24 14:24) PFSH Medical History Left chest thoracotomy scar GERD (gastroesophageal reflux disease) DJD (degenerative joint disease) Lipoma of lung History of COVID-19 Morbid obesity Hypovitaminosis D Asthma Surgical History History of lung surgery History of colonoscopy History of cholecystectomy History of bilateral tubal ligation History of Family History Mother Hypertension Diabetes Father Cancer Daughter No problems noted. 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 However Pt reports she's dealing with other medical issues and depending on the outcomes from this she might have to postpone weight-loss surgery. Presenting Concerns Referral Source WMP-Provider. PT had initial visit with Dr. Salgado on 04/04/2024 Reason for referral Completion of behavioral health assessment as part of process for weight-loss surgery. Precipitating Event Obesity. Starting weight: 245Lbs. Living Situation Current Living Situation Rent At risk of losing current housing? No Satisfied with current living situation? Yes Comments PT lives with her 20 y/o son. Food/Weight/Diet Expectations of change Initial goal to lose 10% of her weight before surgery, which is about 25lbs. Ultimate weight goal: 220lbs before surgery PT is implementing the following: Current meal plan:2 shakes, 2 bars, 1 meal. Exercise plan: None. Has not been as consistent due life events. History/Relationship with food Pt reports she tends to skip meals and eat little in general. Example of meals before starting the program: Breakfast: Lunch: Dinner: Snacks: Drinks/Liquids: History/Relationship with weight In the last 10 years, the patient's Lowest weight was and highest Social History Family history and relationship PT is single, never . However she had a assisted partner of 20 years who in 2020. Pt has 2 adult children. They are 27, 21 and 20. She also has 3 grandkids. She has 5 sisters alive, 1 last year. Father , mother alive, she's 75 y/o and she lives in [place]. PT reports good family dynamics. Parental/Familial emissions testing technician obligations None reported. Developmental history and status None reported. Current WNL. Social support Her children, close friends, family in general. She doesn't have too many friends but her kids are her biggest cheerleaders. Community support PCP. Taoist/Spirituality Denominational. Attends religion on Sundays. Cultural/Ethnic information Born and raised in [place]. Moved to [place] in 2015. Education Highest grade completed GED, has a certificate in cosmetology. Preferred learning style Auditory, Verbal, Written, Learn by doing and Visual Currently enrolled in educational program? No Interested in further educational program? 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 No Meaningful activities Crafts, reading, listen to music. Financial Situation Describe current financial situation Occasional struggle Financial assistance? Food [employer] Service? No Medical and Physical Health Summary Additional Medical History not covered in history None reported Sexual History concerns None reported Physical exam in the last year? Yes Pain Screening Current pain? No Pain in the last few months? Yes Comments Due to sciatic nerve pain. Medications Is the patient compliant with medications? Yes Does the patient have Bhardwaj Guardian in place? Not applicable Does the patient use complimentary health approaches? No Assessment & Plan Assessment & Plan (1) Adjustment disorder, unspecified: Code(s): F43.20 - Adjustment disorder, unspecified Qualifiers: Adjustment disorder type: unspecified type Qualified Code(s): F43.20 - Adjustment disorder, unspecified Plan PT not cleared today. We will meet again to continue assessment. BH questionnaires were not completed at intake, so these will be administered in order to complete assessment. Next doug: 06/06/24 at 10am, in person. Coding Level of Care Code New Pt Psy Diag Eval (86072) Patient Type New Diagnoses Adjustment disorder, unspecified type F43.20 Adjustment disorder type: unspecified type Time Spent (min) 75
== END ==
PROVIDERS: PCP Internal Medicine; Visit Provider Counselor Mental Health
DX: F43.20 Adjustment disorder, unspecified (principal)
CPT/HCPCS: 90834

== ENCOUNTER → 2024-07-25 12:45 | Outpatient (BNVA) | payer MEDICAID, SELFPAY | PROVIDERS: PCP Internal Medicine; Visit Provider Physician Assistant Surgical ==

== ENCOUNTER 2024-09-05 12:54 | Outpatient (AMB) | payer MEDICAID, SELFPAY ==
--- NOTE | 2024-09-05 13:15 | A.OFFVIS_ITS ---
Vital Signs 09/05/24 13:16 Height 5 ft 3 in Weight 246 lb 7.629 oz BMI 43.7 BP 130/66 Blood Pressure Location Rt brachial Position Sitting Pulse 62 Pulse Source Pulse Oximeter Pulse Oximetry (%) 97 Oxygen Delivery Method Room Air Intake Visit Reasons: 6 months f/u GERD Intake Note: ESTABLISHED PATIENT for GERD mgmt. US + Labs Done Chief Complaint; Pt reports that their GI sx have remained well controlled. Pt denies any concerns at this time. Clinical Systems Educator Required: Yes Clinical Systems Educator Services: Clinical Systems Educator Present Clinical Systems Educator Name: Lang. Brian Wesley [id number] Information Interpreted: clinical only Accompanied by: Self / Same As Patient Allergies No Known Allergies [No Known Allergies*] Allergy (Verified 04/24/24 14:24) HPI HPI 6 months f/u GERD: Details: LAST VISIT: Fatty liver disease, nonalcoholic GERD (gastroesophageal reflux disease) Hx of cholecystectomy Postprandial bloating Plan Patient will continue current treatment with pantoprazole. Avoid dietary triggers and late night snacking. Staying upright for minimum 3 hours after meals discussed with patient. Will recheck liver fibrosis panel and ultrasound with elastography. Normal liver enzymes in January of 2024. Increase fluid intake and activity to promote better bowel motility. Patient can take fiber supplement. Follow-up in the office in 6 months, sooner on as needed basis. She is agreeable to this plan and verbalizes understanding of instructions. She was given the opportunity to ask questions and all questions answered. ? Thank you for allowing me to participate in her care Orders Orders Liver Fibrosis Pnl Today K76.0 US abdomen rubio w elastography Today K76.0 TODAY'S VISIT Patient is here today for follow-up. Liver fibrosis panel showed fibrosis F0, however ultrasound with elastography show possible Metavir score F2/F3. Most likely no fibrosis as the results might not be accurate on ultrasound as there is statistical variability of the sampling. Patient reports that she has been feeling well. She is currently off of the PPI. Denies any abdominal pain or discomfort. Denies any dyspepsia, dysphagia or odynophagia. Patient is trying to lose weight on her own. Unable to go through with bariatric services at this time as she was unable to do the planned meals. She is trying to lose weight on her own. Patient denies melena, hematochezia, unintentional weight loss or ribbon like stools. Patient reports recently had total hysterectomy. Reports that she has been feeling well after the surgery. [facility] Medical History Left chest thoracotomy scar GERD (gastroesophageal reflux disease) DJD (degenerative joint disease) Lipoma of lung History of COVID-19 Morbid obesity Hypovitaminosis D Asthma Surgical History Hx of total hysterectomy (~06/2024) History of lung surgery History of colonoscopy History of cholecystectomy History of bilateral tubal ligation History of Family History Mother Hypertension Diabetes Father Cancer Daughter No problems noted. Son Asthma Son Hypoglycemia Social History Household Members: Children Alcohol intake: current Alcohol intake frequency: does not drink Patient Tobacco Use Status: Former Tobacco user Current occupational status: employed Current occupation: [employer]NA[employer] Sexual orientation: Straight/Heterosexual Gender identity: Female Female Reproductive History Menstrual Age of Menarche: 9 Review of Systems Const Denies weight gain and Denies weight loss ENT Reports no additional complaints, Denies dysphagia and Denies odynophagia Card Reports no additional complaints Resp Reports no additional complaints GI Denies abdominal pain, Denies belching, Denies melena, Denies bloating, Denies change in bowel habits, Denies dysphagia, Denies excessive flatus, Denies dyspepsia, Denies heartburn, Denies diarrhea, Denies loose stools, Denies nausea, Denies odynophagia and Denies vomiting Musc Reports no additional complaints Neuro Reports no additional complaints Psych Reports no additional complaints Endo Reports no additional complaints Physical Exam Vital Signs: Last Vital Signs Pulse 62 09/05/24 13:16 BP 130/66 09/05/24 13:16 Pulse Ox 97 09/05/24 13:16 Oxygen Delivery Method Room Air 09/05/24 13:16 BMI result Body Mass Index 43.7 Const General: healthy appearing and no acute distress Nutritional Appearance: obese Orientation/consciousness: patient oriented x3 Resp Effort & Inspection: normal respiratory effort, able to speak in complete sentences, no tracheal deviation and symmetric chest movement Auscultation: clear to auscultation bilaterally Cardio Rate: regular rate GI Inspection: Yes normal to inspection, No distended and Yes obesity Palpation (GI): Soft to palpation, not firm, nontender and No hepatosplenomegaly present Auscultation: normal bowel sounds General: Yes no CVA tenderness Back/Spine/Pelvis Back: no CVA tenderness Skin General skin exam: elasticity normal, turgor normal and dry skin Neuro General: patient oriented x3 Psych Appearance: grossly normal Mental Status: mental status grossly normal Results Reviewed Results Reviewed: Laboratory Tests 05/15/24 11:14 Iron 89 TIBC 286 Ferritin 185 Total Bilirubin 0.4 AST 19 ALT 26 Alkaline Phosphatase 86 Liver GGT 26 Liver Total Bilirubin 0.3 Liver Apolipoprotein A1 251 H Liver Fibrosis ALT 17 Liver [id number] 217 Liver Haptoglobin 282 H Liver Fibrosis Stage F0 C-Reactive Protein 0.39 Ceruloplasmin 32 Triglycerides 96 Alpha Fetoprotein 3.4 Vitamin A 48 Vitamin B1 15 Vitamin B12 682 25-OH Vitamin D Total 34.7 Folate 11.4 Anti-Mitochondrial Ab NEGATIVE Anti-Smooth Muscle Ab <20 ABDOMINAL ULTRASOUND WITH ELASTOGRAPHY MPRESSION: 1. Slightly increased liver echogenicity. 2. Elastography: Although the liver elastography measurements are consistent with a moderate risk for clinically significant liver fibrosis (METAVIR Stage F2-F3), there is statistical variability of the sampling which decreases accuracy. Assessment & Plan Assessment & Plan (1) Fatty liver disease, nonalcoholic: Code(s): K76.0 - Fatty (change of) liver, not elsewhere classified Category: Medical (2) GERD (gastroesophageal reflux disease): Code(s): K21.9 - Gastro-esophageal reflux disease without esophagitis Category: Medical Qualifiers: Esophagitis presence: esophagitis presence not specified Qualified Co de(s): K21.9 - Gastro-esophageal reflux disease without esophagitis (3) Hx of cholecystectomy: Code(s): Z90.49 - Acquired absence of other specified parts of digestive tract Category: Medical (4) Postprandial bloating: Code(s): R14.0 - Abdominal distension (gaseous) Plan Discussed with patient the importance of losing weight and eating food low in fat, low carb, low-salt and high-protein diet. Patient was encouraged to try to exercise. Patient is planning on going for walks when the weather gets better. Will repeat liver enzymes again. Patient will avoid dietary triggers and late night snacking. Staying upright for minimum 3 hours after meals discussed with patient. Patient will be due to go for colonoscopy and we will schedule that next visit. Patient reported family history of CRC. Patient is agreeable to this plan and verbalizes understanding of instructions. She was given the opportunity to ask questions and all questions answered. Thank you for allowing me to participate in her care Orders: Orders Liver Panel Today R74.01 - Elevation of levels of liver transaminase levels Coding Level of Care Code Est Pt Level 3 (29517) Diagnoses Fatty liver disease, nonalcoholic K76.0 GERD (gastroesophageal reflux disease) K21.9 Esophagitis presence: esophagitis presence not specified Hx of cholecystectomy Z90.49 Postprandial bloating R14.0 Time Spent (min) 25 Comment 15 minutes spent with patient and additional 10 minutes spent reviewing her records
[2024-09-05 13:16] VITALS: BP 130/66; PULSE 62; O2SAT 97; BMI 43.7
--- OUTSIDE RECORDS SUMMARY | 2024-09-05 13:25 | XMS_ITS | Encounter Summary ---
Author Organization [employer] [facility] Address [address] [place] [address] 7 [place] [address] Care Team Providers Care Machine Icer Name Role Phone Judy Galvan MD Primary Care Provider + Encounter Details Date Type Department Care Team (Latest Contact Info) Description 03/05/2019 Abstract [facility] CONVERSIONS Dental, Provider, DDS Social History Tobacco Use Types Packs/Day Years Used Date Smoking Tobacco: Never Assessed Comments Unknown Sex and Gender Information Value Date Recorded Sex Assigned at Female 05/15/2022 10:34 AM EDT Legal Sex Female 10:34 AM EDT Gender Identity Female 05/15/2022 10:34 AM EDT Sexual Orientation Straight 05/15/2022 10 :34 AM EDT documented as of this encounter Plan of Treatment Upcoming Encounters Date Type Department Care Team (Late st Contact Info) Description 10/02/2024 12:00 PM EDT Office Visit [facility] MEDICINE [address] [place] [address] Judy Galvan MD [address] [place] [address] documented as of this encounter Visit Diagnoses Not on filedocumented in this encounter Care Teams Machine Icer Relationship Specialty Start Date End Date Judy Galvan MD [address] [place], [place] [phone] PCP - General Family Medicine 07/22/18 Anya Curry Residential Team Leader 08/29/23 11/27/23 documented as of this encounter
--- OUTSIDE RECORDS SUMMARY | 2024-09-05 13:25 | XMS_ITS | Encounter Summary ---
Author Organization [employer] [facility] Address [address] [place] [address] [address] [place] [address] Care Team Providers Care Inside Sales Account Manager Name Role Phone Judy Galvan MD Primary Care Provider + Encounter Details Date Type Department Care Team (Late Contact Info) Description 01/02/2023 Abstract [facility] MEDICINE [address] [place], [place] [phone] Judy Galvan MD [address] [place], [place] [phone] Social History Tobacco Use Types Packs/Day Years Used Date Smoking Tobacco: Never Smokeless Tobacco: Never Alcohol Use Standard Drinks/Week Comments Yes 0 (1 standard drink = 0.6 oz pur e alcohol) oca Depression Answer Date Recorded Patient Health Questionnaire-9 Score 10 12/14/2022 Depression Answer Date Recorded Patient Health Questionnaire-2 Score 2 12/14/2022 Comments Unknown Sex and Gender Information Value Date Recorded Sex Assigned at Female 05/15/2022 10:34 AM EDT Legal Sex Female 10:34 AM EDT Gender Identity Female 05/15/2022 10:34 AM EDT Sexual Orientation Straight 05/15/2022 10 :34 AM EDT COVID-19 Exposure Response Date Recorded In the last 10 days, have yo u been in contact with someone who was confirmed or suspected to have Coronavirus/COVID-19? No / Unsure 12/14/2022 3:11 PM EDT documented as of this encounter Plan of Treatment Upcoming Encounters Date Type Department Care Team (Late Contact Info) Description 10/02/2024 12:00 PM EDT Office Visit [facility]INE [address] [place], [place] [phone] Judy Galvan MD [address] [place] [address] documented as of this encounter Visit Diagnoses Not on filedocumented in this encounter Additional Health Concerns Assessment Noted Time PHQ-9 Depression Total Score: 10 12/14/ 023 3:27 PM EDT documented as of this encounter Care Teams Inside Sales Account Manager Relationship Specialty Start Date End Date Judy Galvan MD [address] [place] [address] PCP - General Family Medicine 07/22/18 Anya Curry Surgical Assistant 08/29/23 11/27/23 documented as of this encounter
--- OUTSIDE RECORDS SUMMARY | 2024-09-05 13:25 | XMS_ITS | Clinical Summary ---
Author Organization [facility] Address [address] [place] [address] Care Team Providers Care General Doc Name Role Phone Judy Galvan MD Primary Care Provider [phone] Surgical History Surgery Date Site/Laterality Comments TUBAL LIGATION PROCEDURE: HISTORICAL TUBAL LIGATION CHOLECYSTECTOMY PROCEDURE: HISTORICAL CHOLECYSTECTOMY COLONOSCOPY PROCEDURE: HISTORICAL COLONOSCOPY Medical History Medical History Date Comments Mild intermittent asthma, uncomplicated DX:Mild intermittent asthma, uncomplicated Hypovitaminosis D DX:Hypovitamin osis D Morbid obesity (CMS/HCC) DX:Morb id obesity (HCC) History of COVID-19 DX:History o f COVID-19 Family History Medical History Relation Name Comments Other cancer Father Diabetes Mother Hypertension Mother Relation Name Status Comments Father Mother Social History Tobacco Use Types Packs/Day Years Used Date Smoking Tobacco: Never Assessed Comments Unknown Sex and Gender Information Value Date Recorded Sex Assigned at Not on file Legal Sex Female 4:39 AM EST Gender Identity Not on file Sexual Orientation Not on file Obstetrics History Last Filed Vital Signs Vital Sign Reading Time Taken Comments Blood Pressure 120/73 11/22/2023 2:22 PM EDT Sit ting R Arm Pulse 72 11/22/2023 2:22 PM EDT Temperature - - Respiratory Rate - - Oxygen Saturation - - Inhaled Oxygen Concentration - - Weight 115 kg (253 lb) 11/22/2023 2:22 PM EDT Height 157.5 cm (5' 2 ) 11/22/2023 2:22 PM EDT Body Mass Index 46.27 11/22/2023 2:22 PM EDT Plan of Treatment Health Maintenance Due Date Last Done Comments Breast Cancer Screening 1970 DTaP,Tdap,and Td Vaccines (1 - Tdap) 1989 Hepatitis B Vaccines (1 of 3 - 19+ 3-dose series) 1989 Pneumococcal Vaccine: 50+ Ye ars (1 of 2 - PCV) 1989 Pneumococcal Vaccine: Pediat rics (0 to 5 Years) and At-Risk Patients (6 to 64 Years) (1 of 2 - PCV) 1989 Cervical Cancer Screening: P ap Smear 1991 Zoster Vaccines (1 of 2) 01/22/2020 Cholesterol Screening (Lipid Panel) 08/14/2023 Colorectal Cancer Screening: Colonoscopy 08/14/2023 Depression Screening 08/14/2023 HIV Screening 08/14/2023 Hepatitis C Screening 08/14/2023 Social Influencers of Health Screening 08/14/2023 COVID-19 Vaccine (2023-2 5 season) 2024 Influenza Vaccine (#1) 2024 HIB Vaccines Aged Out No longer eligi ble based on patient's age to complete this topic HPV Vaccines Aged Out No longer eligi ble based on patient's age to complete this topic Hepatitis A Vaccines Aged Out No long er eligible based on patient's age to complete this topic IPV Vaccines Aged Out No longer eligi ble based on patient's age to complete this topic MMR Vaccines Aged Out No longer eligi ble based on patient's age to complete this topic Meningococcal ACWY Vaccine Aged Out N o longer eligible based on patient's age to complete this topic Meningococcal B Vacine Aged Out No lo nger eligible based on patient's age to complete this topic RSV Immunization Patients Un asim 20 months Aged Out No longer eligible b ased on patient's age to complete this topic Varicella Vaccines Aged Out No longer eligible based on patient's age to complete this topic Care Teams General Doc Relationship Specialty Start Date End Date Judy Galvan MD [address] [place] [phone] PCP - General 11/28/22
--- OUTSIDE RECORDS SUMMARY | 2024-09-05 13:25 | XMS_ITS | Clinical Summary ---
Author Organization [email or web address] Address [address] [place] [address] 7[address] [place] [address] Care Team Providers Care Nuisance Wildlife Trapper Name Role Phone Judy Galvan MD Primary Care Provider + Allergies No known active allergies Medications Misc. Devices (Pulse Oximeter) miscIndications:M oderate persistent asthma with exacerbation 1 each if needed (SOB). 1 each 3 Active lidocaine (Lidoderm) 5 % patch APPLY 1 PATCH TOPICALLY TO SKIN, LEAVE ON FOR 12 HOURS AND OFF FOR 12 HOURS DIRECTED 3 Active Omeprazole 20 MG tablet delayed-releaseIn dications:PUD (peptic ulcer disease) Take 20 mg by mouth in the morning. 90 tablet 4 Active budesonide-formot hany (Symbicort) 80-4.5 MCG/ACT inhalerIndication s:Moderate persistent asthma without complication Inhale 2 puffs in the morning and at bedtime. Rinse mouth with water after use to reduce aftertaste and incidence of candidiasis. Do not swallow. 10.2 g 11 4 Active Acetaminophen Extra Strength 500 MG tabletIndications :Sacroiliitis (CMS/HCC) Take 1 tablet by mouth every 12 (twelve) hours if needed (pain). 120 tablet 4 Active albuterol (Ventolin HFA) 108 (90 Base) MCG/ACT inhalerIndication s:Asthma, unspecified asthma severity, unspecified whether complicated, unspecified whether persistent INHALE 2 PUFFS BY MOUTH EVERY 4 TO 6 HOURS NEEDED 18 g 3 4 Active albuterol (2.5 MG/3ML) 0.083% nebulizer solution INHALE 1 AMPULE USING A NEBULIZER THREE TIMES DAILY NEEDED SHORTNESS OF BREATH OR FOR ASTHMA 90 mL 5 4 Active betamethasone valerate (Valisone) 0.1 % cream APPLY TOPICALLY TO AFFECTED AREA(S) TWICE DAILY IN THE MORNING AND AT BEDTIME (DRYNESS) 45 g 2 4 Active Active Problems Problem Noted Date Diagnosed Date Endometrial carcinoma 05/29/2024 Assessment & Plan (05/29/2024 1:20 PM EST): Not a diagnosis Maxillary pain 05/29/2024 Assessment & Plan (05/29/2024 1:52 PM EST): No evidence of sinusitis. Fu with dentist to complete root canal procedure. 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 Neal xxx [facility] in the past, she will have a hysterectomy on 06/20. Contusion of left chest wall 02/07/2024 Assessment & Plan (02/07/2024 1:06 PM EDT): On left side/ surgical site. Advised to use diclofenac gel + Tylenol + Naproxen prn Use incentive spirometer to prevent atelectasis (he already has rales on LLL lung). Re consult prn fever, worsening cough or change in color of phlegm FU in 3mo Arthralgia of both hands 12/14/2023 Assessment & Plan (12/14/2023 3:40 PM EDT): It seems to be related to some levels of nerve compression? Ro DJD , CTS. I will rx bl wrist splints to use overnight and fu with her in 6w. PUD (peptic ulcer disease) 06/26/2023 Assessment & Plan (10/04/2023 10:45 AM EDT): Significantly improved with diet modifications, most likely GERD Stop omeprazole and fu w GI Stressed importance of dietary modifications, information given at last appointment Assessment & Plan (06/26/2023 10:29 AM EST): Pt has mild dyspepsia , could be s/p surgery/medications Gave her information about diet, avoid fat foods, carbs Use omeprazole on empty stomach x 1 m Counseled to avoid constipation and wt reduction Cervical paraspinal muscle spasm 03/02/2023 Assessment & Plan (03/02/2023 10:43 AM EDT): Gave pt info on stretching exercises for her neck Cont baclofen+tylenol prn Cont diclofenac gel prn She will complete PT for L-spine and knee and will get back to me is neck pain has not improved, I may refer her to PT Asthma 03/02/2023 At risk for sexually transmi tted disease due to partner with HIV 03/02/2023 HPV (human papilloma virus) anogenital infection 03/02/2023 Myalgia 03/02/2023 Well woman exam 03/02/2023 TMJ (dislocation of temporomandibular joint) Sacroiliitis 02/20/2023 Assessment & Plan (10/04/2023 10:46 AM EDT): Recurrent Refer to PT again, she couldn't continue last time due to cardiovascular event 1 yr ago Assessment & Plan (02/20/2023 6:32 PM EDT): Counseled re heat to affected area Use diclofenac gel bid x 2w then prn + Naproxen alternate with tylenol Refer to PT Bilateral carpal tunnel syndrome 02/20/2023 Assessment & Plan (02/20/2023 6:27 PM EDT): NCS not done, but clinically looks like CTS. Use tylenol or naproxen prn pain Will send a rx for right hand brace and she will fu with me , if sxs improve, will send it for both hands Adjustment disorder 12/13/2022 Assessment & Plan (12/14/2022 4:13 PM EDT): Recently had a big loss in her family, doing better. 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 Assessment & Plan (06/26/2023 10:48 AM EST): Resolved, s/p resection Recommended to avoid heavy lifting for at least 4 more wks and she should be able to return to work in 1 month Assessment & Plan (05/10/2023 12:15 PM EDT): Resolved, s/p VATS resection Seems to be doing well Encouraged incentive spirometer several times per day, hydration, and ambulation FU with CT surgeon next wk FU 3 m Assessment & Plan (03/02/2023 10:44 AM EDT): Resection pending by CT surgery, she will FU w/ cards for clearance first Assessment & Plan (12/14/2022 4:14 PM EDT): Seen by CT surgery, resection is pending FU with CT surgery Low back pain with sciatica 12/13/2022 Mild intermittent asthma 12/13/2022 Primary osteoarthritis of both knees 10/20/2022 Overview (10/20/2022): Xray 10/2019 Blurring of visual image 10/02/2018 Precordial chest pain 10/02/2018 Eczema 10/02/2018 Assessment & Plan (02/07/2024 12:51 PM EDT): On trunk, not improving with triamcinolone Rx betamethasone cream instead, refer to dermatology. Assessment & Plan (10/04/2023 10:47 AM EDT): On waist line Recommended to avoid tight clothes, watch for fabrics that may trigger eczema Use triamcinolone cream BID and reconsult PRN Human papilloma virus infection 10/02/2018 Assessment & Plan (12/14/2022 4:14 PM EDT): Will retrieve papsmear results Vitamin D deficiency 10/02/2018 Assessment & Plan (05/29/2024 1:22 PM EST): Sp supplementation. Levels are normal now. Discharge from nipple 07/22/2018 Dysfunctional uterine bleeding 07/22/2018 Overview (05/01/2024): Endometrial biopsy on 04/21/24 (Dr Gill) showed changes suggestive of endometrial neoplasm at least . She was referred to [facility]. Moderate persistent asthma without complication 07/22/2018 Assessment & Plan (06/26/2023 10:25 AM EST): Seems to be controlled w/ Symbicort. Use albuterol prn Continue incentive spirometer for at least one more month Decline flu IZ and covid booster today Assessment & Plan (03/02/2023 10:44 AM EDT): Not well-controlled Cont symbicort 1x/day for now, may inc to BID if she has more exacerbations Counseled about influenza and COVID boosters this fall Assessment & Plan (12/14/2022 4:15 PM EDT): Uncontrolled. DC Pulmicort and start Symbicort two puffs BID Use albuterol PRN Obesity 07/22/2018 Assessment & Plan (05/29/2024 1:53 PM EST): Discussed re weight reduction options including exercise, life style modifications, diet and referral to health promotion specialist. Recommended to decrease soda and sugary beverage consumption, increase protein intake with meals (at least 1 portion of protein with each meal) to assist with satiety, increase dietary fiber Recommended at least 150 min/week of moderate intensity exercise. Fu weight management program at [facility]. Resolved Problems Problem Noted Date Diagnosed Date Resolved Date Overweight 05/29/2024 05/29/2024 Closed fracture of multiple ribs of right side with routine healing 02/07/2024 02/07/2024 Assessment & Plan (02/07/2024 1:04 PM EDT): Pain is improving. Will consider bone density test at next appt Subacute maxillary sinusitis 12/14/2023 05/29/2024 Assessment & Plan (12/14/2023 3:46 PM EDT): Z-pack + NS + Flonase Fu with dentist, ro maxillary bone compromise Cardiovascular collapse 03/02/2023 03/2 07/2023 COVID-19 03/02/2023 05/29/2024 Encounters Date Type Department Care Team Description 07/30/2024 9:30 AM EST Office Visit [facility] [address] [facility] [place] [address] Liliya Sims, OD Myopia of both eyes (Primary Dx) 07/30/2024 Orders Only GENERIC EXTERNAL DATA DEPARTMENT Provider, Generic External Data 07/30/2024 Travel 07/18/2024 Telephone [facility] [address] [place] [address] Judy Galvan MD September recall 07/04/2024 Refill [facility] [address] [place] [address] Judy Galvan MD 06/21/2024 Refill [facility] [address] [place] [address] Judy Galvan MD 06/09/2024 1:00 PM EST Office Visit [facility] [address] [place] [address] Liliya Sims, OD Myopia of both eyes (Primary Dx) from Last 3 Months Immunizations Name Administration Dates Next Due Hep B, adult 03/23/2021 Influenza injectable quadrivalent preservative f ree 05/26/2020,07/22/2018 Influenza, seasonal, injectable, preservative fr ee 05/29/2024 Pfizer Covid-19 Vaccine 12+ 11/06/2020, 1 TD (adult), 2 Lf tetanus tox oid, preservative free, adsorbed 12/26/2018 Tdap 12/28/2018 Family History Medical History Relation Name Comments Diabetes Mother Hypertension Mother Cancer Paternal Grandfather Relation Name Status Comments Mother Paternal Grandfather Social History Tobacco Use Types Packs/Day Years Used Date Smoking Tobacco: Never Passive Smoke Exposure: Never Smokeless Tobacco: Never Tobacco Cessation:Counseling Given: Not Answered Alcohol Use Standard Drinks/Week Comments Not Currently 0 (1 standard drink = 0.6 oz pur e alcohol) oca Depression Answer Date Recorded Patient Health Questionnaire-9 Score 0 06/26/2023 Patient Health Questionnaire-9 Score 0 06/26/2023 Last PHQ-9: Questionnaire Data Not on file 1 08/27/2022 Housing Stability Answer Date Recorded What is your housing situation today? I have dougie pike 05/01/[address] you li ve. Do you have problems with any of the following? None of the above 05/01/2023 Food Insecurity Answer Date Recorded Within the past 12 months, y ou worried that your food would run out before you got money to buy more: Never True 07/24/2023 Within the past 12 months,th e food you bought just didn't last and you didn't have enough money to get more: Never True 03/2024 Transportation Answer Date Recorded In the past 12 months, has l ack of transportation kept you from medical appts, meetings, work or from getting things needed for daily living? Yes, it has kept me from medical appointments or getting medications. 07/24/2023 Utilities Answer Date Recorded In the past 12 months, has t he electric, gas, oil or water company threatened to shut off services in your home? No 07/24/2023 Depression Answer Date Recorded Patient Health Questionnaire-2 Score 0 06/26/2023 Comments Unknown Sex and Gender Information Value Date Recorded Sex Assigned at Female 05/15/2022 10:34 AM EDT Legal Sex Female 10:34 AM EDT Gender Identity Female 05/15/2022 10:34 AM EDT Sexual Orientation Straight 05/15/2022 10 :34 AM EDT Last Filed Vital Signs Vital Sign Reading Time Taken Comments Blood Pressure 136/77 05/29/2024 12:12 PM EST Pulse 63 05/29/2024 12:12 PM EST Temperature 36.3 ??C (97.3 ??F) 05/29/2024 12:[address] Respiratory Rate 18 05/29/2024 12:12 PM EST Oxygen Saturation 97% 05/29/2024 12:12 PM EST Inhaled Oxygen Concentration - - Weight 111 kg (245 lb) 05/29/2024 12:12 PM EST Height 157.5 cm (5' 2 ) 05/29/2024 12:12 PM EST Body Mass Index 44.81 05/29/2024 12:12 PM EST Plan of Treatment Upcoming Encounters Date Type Department Care Team (Late st Contact Info) Description 10/02/2024 12:00 PM EDT Office Visit [facility] [address] [place] [address] Judy Galvan MD [address] [place], [place] [phone] Health Maintenance Due Date Last Done Comments CT Colonography 1970 FIT DNA/Cologuard 1970 FIT 1970 FOBT 1970 HIV Screening 1970 Sigmoidoscopy 1970 Pneumococcal Vaccine: 50+ Years (1 of 2 - PCV) 1989 Zoster Vaccines (1 of 2) 01/22/2020 Hepatitis B Vaccines (2 of 3 - 19+ 3-dose series) 04/20/2021 03/23/2021 COVID-19 Vaccine (3 - 2023-2 5 season) 2024 11/06/2020, 10/05/2020 Depression Screening 06/26/2024 06/26/2023, 06/26/2023 SDOH Screening 07/24/2024 07/24/2023 Mammogram 07/27/2024 07/27/2023, 04/02/2020, 07/30/2018 Alcohol/Substance Use Screening 02/06/2025 02/07/2024 Tobacco Screening 05/29/2025 05/29/2024 Cervical Cancer Screening 07/29/2025 HPV/Cotest 07/29/2025 07/29/2020 Pap Smear 07/29/2025 DTaP/Tdap/Td Vaccines (2 - T d or Tdap) 12/28/2028 12/28/2018, 12/26/2018 Lipid Panel 05/15/2029 05/15/2024, 02/02/2023 Colonoscopy 12/08/2030 12/08/2020 Colorectal Cancer Screening 12/08/2030 RSV Patients and Patients Aged 60 years or older (1 - 1-dose 75+ series) 2045 Hepatitis C Screening Completed 03/04/2021 Influenza Vaccine Completed 05/29/2024, 05/26/2020, 07/22/2018 HIB Vaccines Aged Out No longer eligi ble based on patient's age to complete this topic HPV Vaccines Aged Out No longer eligi ble based on patient's age to complete this topic Hepatitis A Vaccines Discontinued IPV Vaccines Aged Out No longer eligi ble based on patient's age to complete this topic Meningococcal Vaccine Discontinued RSV under 20 months Aged Out No longe r eligible based on patient's age to complete this topic Rotavirus Vaccines Aged Out No longer eligible based on patient's age to complete this topic Procedures Procedure Name Priority Date/Time Associated Diagnosis Comments VITAMIN B12 Routine 07/30/2024 1:42 PM EST LIPID PANEL, STANDARD Routine 05/15/2024 11:14 AM EDT BI MAMMOGRAM SCREENING TOMOSYNTHESIS BILATERAL Routine 07/27/2023 11:27 AM EST ZZZ HISTORICAL HEPATITIS C AB W/REFL TO HCV RNA, QN, PCR Routine 03/04/2021 10:50 AM EDT HM COLONOSCOPY Routine 12/08/2020 2:43 PM EDT ZZZ HISTORICAL HPV E6/E7 RFLX IRVING 16 18/45 Routine 07/29/2020 10:17 AM EST from Last 3 Months or Most Recently Relevant to Health Maintenance Results * Vitamin B12 (07/30/2024 1:42 PM EST) Vitamin B12 388 200 - 900 pg/mL [facility] Comment:NORMAL 200-900 PG/ML INDETERMINATE 160-199 PG/ML DEFICIENT < 160 PG/ML 07/30/2024 1:42 PM EST 07/30/2024 1:42 PM EST us Generic External Data Provider LAB BLOOD ORDERAB LES Final Result Performing Organization Address [facility] de Phone Number [facility] [address] [place] [address] [phone] * (ABNORMAL) Lipid Panel, Standard (05/15/2024 11:14 AM EDT) Triglycerides 96 <150 mg/dL [facility] Comment:Desirable Triglyceri de: less than 150 mg/dLBorderline High Triglyceride 150-199 mg/dLHigh Triglyceride: 200-499 mg/dLVery High Triglyceride: greater than or equal to 5OO mg/dL Cholesterol 204(H) <200 mg/dL [facility] Comment:Desirable Cholestero l: less than 200 mg/dLBorderline High Cholesterol: 200-239 mg/dLHigh Cholesterol: greater than 239 mg/dL LDL Cholesterol Calculated 92 <100 mg/dL [facility] Comment:Desirable LDL: less than 100 mg/dLNear Optimal/Above Optimal LDL: 110- 129 mg/dLBorderline High LDL: 130-159 mg/dLHigh LDL: 160-189 mg/dLVery High LDL: greater than or equal to 190 mg/dL HDL Cholesterol 93 >40 mg/dL [facility] Comment:Desirable HDL: great er than 40 mg/dL Note: This HDL assay may give artificially low results in patients with liver disease. 05/15/2024 11:1 4 AM EDT 05/15/2024 11:14 AM EDT Generic External Data Provider LAB BLOOD ORDERAB LES Final Result Performing Organization Address [facility] Co de Phone Number [facility] [address] [place] [address] [phone] * BI Mammogram Screening Tomosynthesis Bilateral (07/27/2023 11:27 AM EST) Anatomical Region Laterality Modality Breast Bilateral Mammography 07/27/2023 11:2 7 AM EST Narrative 08/14/2023 4:56 PM EST ? [facility] ? [address] ?[place] [address] ? Mammography Report ? Signed ? Patient: Johnson Chad,Elza ?MR#: [id number] ?? [id number] ? : 1970 ?Acct:[id number] ? Age/Sex: 53 / F ?ADM Date: 07/27/23 ? Loc: HO.MAMMO ? Attending Dr: Judy Galvan MD ? Ordering Physician: Judy Galvan MD ?Results: 1Ne ?? gative ? Date of Service: 07/27/23 ?Follow Up: 1 Year From Orig ?? inal Mammogram ? Procedure(s): MM tomosynthesis screening BI ?? Accession Number(s): [id number] ? cc: Judy Galvan MD ? EXAMINATION: ?? MM SCREENING DIGITAL BREAST TOMOSYNTHESIS, BILATERAL ? CLINICAL INFORMATION: ? Screening. Asymptomatic. ? COMPARISON: ?? Mammography: This study is compared with prior exams dating back to ?? 2019. ? TECHNIQUE: ?? Digital breast tomosynthesis is performed in both the craniocaudal and ?? mediolateral oblique views along with computer-aided detection (CAD). ?? Synthesized 2D images are generated from the tomosynthesis. ? FINDINGS: ?? The breasts are almost entirely fatty (ACR BI-RADS breast composition ?? Category a). ? There are no significant masses, abnormal calcifications, or other ?? abnormalities. ? MM/MM tomosynthesis screening BI ?? IMPRESSION: ?? No mammographic evidence of malignancy. ? ASSESSMENT: ? BI-RADS BI-RADS 1 - Negative ? RECOMMENDATION: ?? Routine annual mammography screening. ? 1 year F/U ? This examination should not preclude the clinical evaluation of a ?? suspicious palpable abnormality. ? This patient's information was entered into a reminder system with a ?? target due date for their next mammogram. ? Dictated By: ?Shivani Sarabia MD ? Signed By: ?<Electronically signed by Shivani Sarabia MD in OV> ? 08/14/231651 ? DD/ 1127 ? TD/TT: ? Dispatcher Clerk: ? Procedure Note Dewey, Image - 08/14/2023 Renetta [facility] [address] [place] [address] Mammography Report Signed Patient: Randi BhardwajR#: [id number] : 1970Acct:[id number] Age/Sex: 53 / FADM Date: 07/27/23 Loc: HO.MAMMO Attending Dr: Judy Galvan MD Ordering Physician: Judy Galvan MDResults: 1Ne gative Date of Service: 07/27/23Follow Up: 1 Year From Orig inal Mammogram Procedure(s): MM tomosynthesis screening BI Accession Number(s): [id number] cc: Judy Galvan MD EXAMINATION: MM SCREENING DIGITAL BREAST TOMOSYNTHESIS, BILATERAL CLINICAL INFORMATION: Screening. Asymptomatic. COMPARISON: Mammography: This study is compared with prior exams dating back to 2019. TECHNIQUE: Digital breast tomosynthesis is performed in both the craniocaudal and mediolateral oblique views along with computer-aided detection (CAD). Synthesized 2D images are generated from the tomosynthesis. FINDINGS: The breasts are almost entirely fatty (ACR BI-RADS breast composition Category a). There are no significant masses, abnormal calcifications, or other abnormalities. MM/MM tomosynthesis screening BI IMPRESSION: No mammographic evidence of malignancy. ASSESSMENT: BI-RADS BI-RADS 1 - Negative RECOMMENDATION: Routine annual mammography screening. 1 year F/U This examination should not preclude the clinical evaluation of a suspicious palpable abnormality. This patient's information was entered into a reminder system with a target due date for their next mammogram. Dictated By: Shivani Sarabia MD Signed By: <Electronically signed by Shivani Sarabia MD in OV> 08/14/23 1652 DD/ 1127 TD/TT: Dispatcher Clerk: Judy Galvan MD IMG BI PROCEDURES Final Result * HEPATITIS C AB W/REFL TO HCV RNA, QN, PCR (03/04/2021 10:50 AM EDT) HEPATITIS C ANTIBODY NON-REACT GIULIANO NON-REACT GIULIANO [facility] INDEX 0.03 <1.00 [facility] Comment: ?? HCV antibody was non-reactive. There is no laboratory ?? evidence of HCV infection. ?? In most cases, no further action is required. However, if recent HCV exposure is suspected, a test for HCV RNA (test code 77937) is suggested. ?? For additional information please refer to http://education.angelMD/faq/EQQ94r8 (This link is being provided for informational/ educational purposes only.) ?? 03/04/2021 10:5 0 AM EDT Saran Elise MD HISTORICAL/NON ORDERABLE LAB S Final Result [facility] [address] * Hm Colonoscopy (12/08/2020 2:43 PM EDT) Historical Provider HEALTH MAINTENANCE Final Result * HPV E6/E7 RFLX IRVING 16 18/45 (07/29/2020 10:17 AM EST) HPV 16 RNA [facility] HPV 18/45 RNA [facility] HPV E6 E7 ADD [facility] HPV mRNA E6/E7 rflx Not Detected Not Detected [facility] Comment: This test was performed using the APTIMA HPV Assay ([employer] This assay detects E6/E7 viral messenger RNA (mRNA) from 14 high-risk HPV types (16,18,31,33,35,39,45,51,52,56,58,59,66,68). The analytical performance characteristics of this assay have been determined by [employer]. The modifications have not been cleared or approved by the FDA. This assay has been validated pursuant to the CLIA regulations and is used for clinical purposes. THIS TEST WAS PERFORMED AT: [facility] [address] [place] [address] [address] [place], [place] ??[id number] AVIS PARKER MD 07/29/2020 10:1 7 AM EST Juan Jose Gill MD HISTORICAL/NON ORDERABLE LABS Fi nal Result [facility] [address] from Last 3 Months or Most Recently Relevant to Health Maintenance [place] [address] [place] [address] C3 Care Teams Nuisance Wildlife Trapper Relationship Specialty Start Date End Date Judy Galvan MD [address] [place] [phone] PCP - General Family Medicine 07/22/18
--- OUTSIDE RECORDS SUMMARY | 2024-09-05 13:25 | XMS_ITS | Encounter Summary ---
Author Organization [employer] Address [address] [facility] [address] [place] [address] Care Team Providers Care Culinary Artist Name Role Phone Judy Galvan MD Primary Care Provider + Reason for Visit * Reason Comments Med Refill Encounter Details Date Type Department Care Team ([facility] st Contact Info) Description 08/10/2023 Refill [facility] [address] [place], [place] [phone] Judy Galvan MD [address] [place], [place] [phone] PUD (peptic ulcer disease) Social History Tobacco Use Types Packs/Day Years Used Date Smoking Tobacco: Never Smokeless Tobacco: Never Alcohol Use Standard Drinks/Week Comments Not Currently [...] Description 10/02/2024 12:00 PM EDT Office Visit [facility] [address] [place] [phone] Judy Galvan MD [address] [place] [address] documented as of this encounter Visit Diagnoses Diagnosis PUD (peptic ulcer disease) Peptic ulcer, unspecified site, unspecified as acute or chronic, without mention of hemorrhage, perforation, or obstruction documented in this encounter Additional Health Concerns Assessment Noted Time PHQ-9 Depression Total Score: 0 06/26/20 23 9:44 AM EST documented as of this encounter Care Teams Culinary Artist Relationship Specialty Start Date End Date Judy Galvan MD [address] [place] [phone] PCP - General Family Medicine 07/22/18 Anya Curry Surgical Garment Inspector 08/29/23 11/27/23 documented as of this encounter
--- OUTSIDE RECORDS SUMMARY | 2024-09-05 13:25 | XMS_ITS | Encounter Summary ---
Author Organization [employer] Address 75 [facility] 7t [place] [address] Care Team Providers Care Motor And Chassis Inspector Name Role Phone Judy Galvan MD Primary Care Provider + Reason for Visit * Reason Comments Med Refill Encounter Details Date Type Department Care Team ([facility] st Contact Info) Description 08/17/2023 Refill [facility] MEDICINE [address] [place], [place] [phone] Judy Galvan MD [address] [place], [place] [phone] Asthma, unspecified asthma severity, unspecified whether complicated, unspecified whether persistent Social History Tobacco Use Types Packs/Day Years [...] Description 10/02/2024 12:00 PM EDT Office Visit [facility] MEDICINE [address] [place] [phone] Judy Galvan MD [address] [place] [address] documented as of this encounter Visit Diagnoses Diagnosis Asthma, unspecified asthma severity, unspecified whether complicated, unspecified whether persistent documented in this encounter Additional Health Concerns Assessment Noted Time PHQ-9 Depression Total Score: 0 06/26/20 23 9:44 AM EST documented as of this encounter Care Teams Motor And Chassis Inspector Relationship Specialty Start Date End Date Judy Galvan MD [address] [place] [phone] PCP - General Family Medicine 07/22/18 Anya Curry Teacher Asst 08/29/23 11/27/23 documented as of this encounter
--- OUTSIDE RECORDS SUMMARY | 2024-09-05 13:25 | XMS_ITS | Encounter Summary ---
Author Organization [employer] Address 75 [facility] 7t [place] [address] Care Team Providers Care Tablet Making Machine Operator Name Role Phone Judy Galvan MD Primary Care Provider + Encounter Details Date Type Department Care Team (Late st Contact Info) Description 11/26/2023 Orders Only [facility] MEDICINE [address] [place] [address] Provider, MD Kirstin Social History Tobacco Use Types Packs/Day Years [...] Description 10/02/2024 12:00 PM EDT Office Visit [facility] MEDICINE [address] [place] [address] Judy Galvan MD [address] [place] [phone] documented as of this encounter Procedures Procedure Name Priority Date/Time Associated Diagnosis Comments HM COLONOSCOPY Routine 12/08/2020 2:43 PM EDT documented in this encounter Results * Hm Colonoscopy (12/08/2020 2:43 PM EDT) us Historical Provider HEALTH MAINTENANCE Final Result documented in this encounter Visit Diagnoses Not on filedocumented in this encounter Additional Health Concerns Assessment Noted Time PHQ-9 Depression Total Score: 0 06/26/20 23 9:44 AM EST documented as of this encounter Care Teams Tablet Making Machine Operator Relationship Specialty Start Date End Date Judy Galvan MD [address] [place] [address] PCP - General Family Medicine 07/22/18 Anya Curry Community Support Worker 08/29/23 11/27/23 documented as of this encounter
--- OUTSIDE RECORDS SUMMARY | 2024-09-05 13:25 | XMS_ITS | Encounter Summary ---
Author Organization [employer] Address [address] [place] [address] 7 [place] [address] Care Team Providers Care Showroom Manager Name Role Phone Judy Galvan MD Primary Care Provider + Reason for Visit * Reason Onset Date Comments Appointment Request 01/22/2023 Encounter Details Date Type Department Care Team ([facility] st Contact Info) Description 01/22/2023 Telephone [facility] MEDICINE [address] [place], [place] [phone] Judy Galvan MD [address] [place], [place] [phone] Appointment Request Social History Tobacco Use Types Packs/Day Years [...] AM EDT documented as of this encounter Miscellaneous Notes * Telephone Encounter - Abhilash Montoya - 01/22/2023 10:12 AM EDT Tc from pt requesting a follow up appt with provider. Patient states provider advise a 6 week follow up on last visit on 12/14/2022 . Please contact pt at [phone] Georgian Speaker documented in this encounter Plan of Treatment Upcoming Encounters Date Type Department Care Team (Late st Contact Info) Description 10/02/2024 12:00 PM EDT Office Visit [facility] MEDICINE [address] [place] [address] Judy Galvan MD [address] [place], [place] [phone] documented as of this encounter Visit Diagnoses Not on filedocumented in this encounter Additional Health Concerns Assessment Noted Time PHQ-9 Depression Total Score: 10 023 3:27 PM EDT documented as of this encounter Care Teams Showroom Manager Relationship Specialty Start Date End Date Judy Galvan MD [address] [place] [phone] PCP - General Family Medicine 07/22/18 Anya Curry Medical Office Technologist 08/29/23 11/27/23 documented as of this encounter
--- OUTSIDE RECORDS SUMMARY | 2024-09-05 13:25 | XMS_ITS | Encounter Summary ---
Author Organization [employer] Address 75 [facility] 7 [place] [address] Care Team Providers Care Food Safety Technician Name Role Phone Judy Galvan MD Primary Care Provider + Reason for Visit * Reason Onset Date Comments triage 10/04/2022 Encounter Details Date Type Department Care Team ([facility] st Contact Info) Description 10/04/[address] [facility] MEDICINE [address] [place], [place] [phone] Judy Galvan MD [address] [place], [place] [phone] triage Social History Tobacco Use Types Packs/Day Years Used Date Smoking Tobacco: Never Assessed Depression Answer Date Recorded Patient Health Questionnaire-9 [...] t he electric, gas, oil or water [employer] threatened to shut off services in your [...] PM EDT documented as of this encounter Miscellaneous Notes * Telephone Encounter - Fariha Thompson RN - 10/04/2022 12:55 PM EDT Triage call with [place] Community Assistant [place] [id number] Pt reports knee pain bilaterally but worse in the left knee. Pt describes pain as very deep and aching. Pt reports pain is worse when gets up from sitting position but, eases with walking. On occasion it continues to hurt with walking and Pt will limp. Pt reports it hurts when trying to sleep as well. Pt has taken tylenol for pain without effect. Pt advised to come to [facility] to be seen by provider and Pt agreed with disposition and home care reviewed. Protocol Used: Knee Pain (Adult) Protocol-Based Disposition: See in Office or Video Visit within 3 Days Video visit not offered Positive Triage Questions: * Moderate pain (e.g., symptoms interfere with work or school, limping) and present > 3 days * Patient wants to be seen * All higher-acuity triage questions were negative Care Advice Discussed: * Reassurance and Education - Knee Pain * Pain Medicines * Pain Medicines - Extra Notes and Warnings * Reasons To Call Back - Moderate pain (e.g., limping) lasts more than 3 days - Mild pain lasts more than 7 days - Signs of infection occur (e.g., spreading redness, warmth, fever) - You become worse * Use a Cold Pack for Pain * Use Heat on Area After 48 Hours * Telephone Encounter - Anderson Adame - 10/04/2022 9:40 AM EDT Symptom: Knee Pain - Not From Injury Outcome: Schedule an urgent appointment (within 1 hour) or talk to a nurse or provider soon Reason: Severe pain now, leg pain , states connected to hip The caller accepted this outcome Please contact at [phone] [place] Islander documented in this encounter Plan of Treatment Upcoming Encounters Date Type Department Care Team (Late st Contact Info) Description 10/02/2024 12:00 PM EDT Office Visit [facility] MEDICINE [address] [place] [address] [phone] Judy Galvan MD [address] [place] [phone] documented as of this encounter Visit Diagnoses Not on filedocumented in this encounter Care Teams Food Safety Technician Relationship Specialty Start Date End Date Judy Galvan MD [address] [place] [address] [phone] PCP - General Family Medicine 07/22/18 Anya Curry Video Game Tester 08/29/23 11/27/23 documented as of this encounter
--- OUTSIDE RECORDS SUMMARY | 2024-09-05 13:25 | XMS_ITS | Encounter Summary ---
Author Organization [employer] Address [address] [place] [address] 7 [place] [address] Care Team Providers Care Child Advocate Name Role Phone Judy Galvan MD Primary Care Provider + Encounter Details Date Type Department Care Team (Late st Contact Info) Description 08/04/2022 Orders Only [facility]C MED & PEDS [address] [place] [address] Yasmin Garcia LPN Social History Tobacco Use Types Packs/Day Years [...] Description 10/02/2024 12:00 PM EDT Office Visit [facility] MEDICINE [address] [place] [address] Judy Galvan MD 230 [place] [address] documented as of this encounter Visit Diagnoses Not on filedocumented in this encounter Care Teams Child Advocate Relationship Specialty Start Date End Date Judy Galvan MD 230 [place] [address] PCP - General Family Medicine 07/22/18 Anya Curry Field Service Rep 08/29/23 11/27/23 documented as of this encounter
== END 2024-09-05 14:05 | disposition home or self-care (01) ==
PROVIDERS: PCP Internal Medicine; Visit Provider Nurse Practitioner Family
DX: K76.0 Fatty (change of) liver, not elsewhere classified (principal); K21.9 Gastro-esophageal reflux disease without esophagitis; Z90.49 Acquired absence of other specified parts of digestive tract; R14.0 Abdominal distension (gaseous)
CPT/HCPCS: 99213

== ENCOUNTER → 2024-09-05 12:54 | Outpatient (BNVA) | payer MEDICAID, SELFPAY | PROVIDERS: PCP Internal Medicine; Visit Provider Nurse Practitioner Family | DX: K21.9 Gastro-esophageal reflux disease without esophagitis (principal); K76.0 Fatty (change of) liver, not elsewhere classified; R14.0 Abdominal distension (gaseous); Z90.49 Acquired absence of other specified parts of digestive tract | CPT/HCPCS: 99212 ==

== ENCOUNTER 2024-09-11 13:28 | Outpatient (AMB) | payer MEDICAID, SELFPAY ==
[2024-09-11 13:39] VITALS: BP 132/60; PULSE 66; BMI 43.7
--- NOTE | 2024-09-11 13:39 | A.OFFVIS_ITS ---
Vital Signs 09/11/24 13:39 Height 5 ft 3 in Weight 246 lb 7.629 oz BMI 43.7 BP 132/60 Blood Pressure Location Lt brachial Position Sitting Pulse 66 Pulse Source Monitor Intake Visit Reasons: r/s 05/22/24 1 yr followup w/ekg Dehydrogenation Supervisor Required: Yes Dehydrogenation Supervisor Name: voice acuna [id number] Allergies No Known Allergies [No Known Allergies*] Allergy (Verified 09/11/24 13:41) Medication List - Last Reconciled 09/11/24 by Fernanda Rose NP-C albuterol sulfate 90 mcg/actuation (Ventolin HFA) 2 puffs inhalation Q4-6H PRN albuterol sulfate mg inhalation TID PRN betamethasone valerate 0.1% appl topical budesonide-formoterol 80-4.5 mcg/actuation (Symbicort) 2 puffs inhalation cholecalciferol (vitamin D3) 50 mcg PO DAILY fluticasone propionate 50 mcg/actuation 1 spray intranasal DAILY gabapentin mg PO .prn HPI HPI r/s 05/22/24 1 yr followup w/ekg: Details: Elza is a 54-year-old female with past medical history of morbid obesity, asthma, reports of a vague history of loss of consciousness requiring CPR when in [place], chest lipoma s/p removal, who previously reported atypical chest discomfort that resolved after Lipoma was removed, who presents for follow up. Today she reports that she has been doing well over the last year. She is describing a pressure sensation in her epigastric area when she lays down. She has no epigastric or chest area discomfort when she is upright or doing physical activity. She has been having periodic headaches. No shortness of breath, PND, orthopnea or edema. No lightheadedness, presyncope, syncope. She reports being busy throughout the day and works for [employer]. Takes meds as directed. Has no cardiac concerns. [facility] Medical History Left chest thoracotomy scar GERD (gastroesophageal reflux disease) DJD (degenerative joint disease) Lipoma of lung History of COVID-19 Morbid obesity Hypovitaminosis D Asthma Surgical History Hx of total hysterectomy (~06/2024) History of lung surgery History of colonoscopy History of cholecystectomy History of bilateral tubal ligation History of Family History Mother Hypertension Diabetes Father Cancer Daughter No problems noted. 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 Sexual orientation: Straight/Heterosexual Gender identity: Female Female Reproductive History Menstrual Age of Menarche: 9 Review of Systems Const All systems reviewed & are unremarkable except as noted in HPI and below ENT Denies dizziness Card Denies chest pain, Denies chest pain at rest, Denies chest pain with activity, Denies rapid heart rate, Denies pedal edema, Denies edema, Denies leg edema, Denies lightheadedness, Denies palpitations, Denies dyspnea, Denies dyspnea on exertion and Denies orthopnea Resp Denies cough, Denies dyspnea and Denies dyspnea on exertion GI Denies hematochezia and Denies change in stool character Musc Denies abnormal gait, Denies limited range of motion, Denies muscle cramps, Denies muscle weakness, Denies numbness, Denies radiating pain into limb, Denies stiffness and Denies tingling Neuro Denies abnormal gait, Denies dizziness, Denies numbness and Denies tingling Endo Denies palpitations Physical Exam Vital Signs: BMI result Body Mass Index 43.7 Const General: cooperative, healthy appearing, comfortable and no acute distress Orientation/consciousness: patient oriented x3 Neck Neck: Yes normal visual inspection Resp Effort & Inspection: normal respiratory effort Auscultation: clear to auscultation bilaterally, no crackles, no rales, no rhonchi and no wheezes Cardio Jugular venous distension: no JVD Rate: regular rate Rhythm: regular rhythm Heart sounds: S1 normal heart sound present, S2 normal heart sound present, no murmurs and no rubs Skin General skin exam: no rashes or lesions noted Neuro General: patient oriented x3 Extrem General: Yes normal to inspection Psych Appearance: grossly normal Mental Status: mental status grossly normal Speech and movement: Normal speech and movement present Office Procedures EKG Details: today, read by me, normal sinus rhythm, rate 66, QTC 410 milliseconds [id number], Complete Assessment & Plan Assessment & Plan (1) Precordial chest pain: Code(s): R07.2 - Precordial pain Category: Medical Plan: Prior reports Atypical sounding chest discomfort that resolved after removal of chest lipoma.. She has no known history of [place], cardiomyopathy, arrhythmia. There is an unclear report of loss of consciousness requiring CPR while in [place] in the past . Previously spoke with her about this and she stated she was told it was from the lipoma in her chest. Cardiac evaluation through our office includes EKG done 12/26/2022 shows sinus rhythm with no acute ST or T- wave abnormalities. Echocardiogram done 01/10/2023 shows EF 60-65%, no regional wall motion abnormalities, RV, atriums normal size. A CTA of the coronary arteries was done on 02/23/2023 showing no coronary calcifications and no significant coronary artery disease. EKG done today showing normal sinus rhythm, rate 66. She does have atypical epigastric type discomfort. No cardiac symptoms reported. At this time she has no confirmed heart disease. It is still unclear what type medical event occurred when she was in [place]. With her history CPR/ unclear eventsm will arrange for cardiology follow- up in 1 year, sooner if needed. (2) Chest mass: Comment: (39h33le mass left lung base - noted on 10/2022 CT done in [place]) Code(s): R22.2 - Localized swelling, mass and lump, trunk Category: Medical Plan: Lipoma, has been Removed (3) Morbid obesity: Code(s): E66.01 - Morbid (severe) obesity due to excess calories Category: Medical Plan: Reports being very active throughout the day. Benefits of weight loss reviewed Coding Level of Care Code Est Pt Level 4 (19973) Complex EM visit Add On G2211 Diagnoses Precordial chest pain R07.2 Chest mass R22.2 Morbid obesity E66.01 CPT Codes EKG - CPT: 12919-[id number], Complete ([id number]) Time Spent (min) 30
--- OUTSIDE RECORDS SUMMARY | 2024-09-11 16:07 | XMS_ITS | Encounter Summary ---
Author Organization [employer] [facility] Address [address] [place] [address] 7 [place] [address] Care Team Providers Care Salesperson Men'S Furnishings Name Role Phone Judy Galvan MD Primary Care Provider + Encounter Details Date Type Department Care Team (Latest Contact Info) Description 03/05/2019 Abstract [facility] CONVERSIONS Dental, Provider, DDS Social History Tobacco [...] Description 10/02/2024 12:00 PM EDT Office Visit [facility] MEDICINE [address] [place] [address] Judy Galvan MD [address] [place] [address] documented as of this encounter Visit Diagnoses Not on filedocumented in this encounter Care Teams Salesperson Men'S Furnishings Relationship Specialty Start Date End Date Judy Galvan MD [address] [place], [place] [phone] PCP - General Family Medicine 07/22/18 Anya Curry Classics Teacher 08/29/23 11/27/23 documented as of this encounter
--- OUTSIDE RECORDS SUMMARY | 2024-09-11 16:07 | XMS_ITS | Encounter Summary ---
Author Organization [employer] Address [address] [place] [address] 7 [place] [address] Care Team Providers Care Cartoon Artist Name Role Phone uJdy Galvan MD Primary Care Provider + Encounter Details Date Type Department Care Team (Late st Contact Info) Description 08/04/2022 Orders Only [facility] CHC MED & PEDS [address] [place] [address] Yasmin Garcia LPN Social History Tobacco Use [...] 12:00 PM EDT Office Visit [facility] MEDICINE [address] [place] [address] Judy Galvan MD [address] [place] [address] documented as of this encounter Visit Diagnoses Not on filedocumented in this encounter Care Teams Cartoon Artist Relationship Specialty Start Date End Date Judy Galvan MD [address] [place] [address] PCP - General Family Medicine 07/22/18 Anya Curry Air Bag Stripper 08/29/23 11/27/23 documented as of this encounter
--- OUTSIDE RECORDS SUMMARY | 2024-09-11 16:07 | XMS_ITS | Encounter Summary ---
Author Organization [employer] Address [address] [facility] 7t [place] [address] Care Team Providers Care Meter Record Clerk Name Role Phone Judy Galvan MD Primary Care Provider + Reason for Visit * Reason Comments Med Refill Encounter Details Date Type Department Care Team ([facility] st Contact Info) Description 08/17/2023 Refill [facility] MEDICINE [address] [place], [place] [phone] Judy Galvan MD [address] [place], [place] [phone] Asthma, unspecified asthma severity, unspecified whether complicated, [...] Description 10/02/2024 12:00 PM EDT Office Visit [facility] MEDICINE [address] [place] [phone] Judy Galvan MD [address] [place] [address] documented as of this encounter Visit Diagnoses Diagnosis Asthma, unspecified asthma severity, unspecified whether complicated, unspecified whether persistent documented in this encounter Additional Health Concerns Assessment Noted Time PHQ-9 Depression Total Score: 0 06/26/20 23 9:44 AM EST documented as of this encounter Care Teams Meter Record Clerk Relationship Specialty Start Date End Date Judy Galvan MD [address] [place] [phone] PCP - General Family Medicine 07/22/18 nAya Curry Qa Lead 08/29/23 11/27/23 documented as of this encounter
--- OUTSIDE RECORDS SUMMARY | 2024-09-11 16:07 | XMS_ITS | Clinical Summary ---
Author Organization [facility] Address [address] [place] [address] 7t [place] [address] Care Team Providers Care Business Applications Specialist Name Role Phone Judy Galvan MD Primary [...] PM EST): Seen by Dr. Neal xxx CASTING DIRECTOR in the past, she will have a [...] Liver US ) liver elastography on 03/27/24 ([facility] showed measurements are consistent with a moderate [...] at least . She was referred to [facility] CASTING DIRECTOR ONC. Moderate persistent asthma without complication 07/22/2018 [...] life style modifications, diet and referral to contract law specialist. Recommended to decrease soda and sugary beverage consumption, increase protein intake with meals (at least 1 portion of protein with each meal) to assist with satiety, increase dietary fiber Recommended at least 150 min/week of moderate intensity exercise. Fu weight management program at [facility]. Resolved Problems Problem Noted Date Diagnosed Date [...] Description 07/30/2024 9:30 AM EST Office Visit [facility] OPTOMETRY [address] [place] [address] Levi, Liliya, OD Myopia of both eyes (Primary Dx) 07/30/2024 Orders Only GENERIC EXTERNAL DATA DEPARTMENT Provider, Generic External Data 07/30/2024 Travel 07/18/[address] [facility] MEDICINE [address] [place] [address] Judy Galvan MD September recall 07/04/[address] [facility] MEDICINE [address] [place] [address] Judy Galvan MD 06/21/[address] [facility] MEDICINE [address] [place] [address] Judy Galvan MD from Last 3 Months Immunizations Name Administration [...] Description 10/02/2024 12:00 PM EDT Office Visit [facility] MEDICINE [address] [place] [address] Judy Galvan MD 230 [place] [address] Health Maintenance Due Date Last Done Comments [...] TOMOSYNTHESIS BILATERAL Routine 07/27/2023 11:27 AM EST [facility] HISTORICAL HEPATITIS C AB W/REFL TO HCV RNA, QN, PCR Routine 03/04/2021 10:50 AM EDT HM COLONOSCOPY Routine 12/08/2020 2:43 PM EDT [facility] HISTORICAL HPV E6/E7 RFLX IRVING 16 18/45 Routine 07/29/2020 10:17 AM EST from Last 3 Months or Most Recently Relevant to Health Maintenance Results * Vitamin B12 (07/30/2024 1:42 PM EST) Vitamin B12 388 200 - 900 pg/mL [facility] Comment:NORMAL 200-900 PG/ML INDETERMINATE 160-199 PG/ML DEFICIENT < 160 PG/ML 07/30/2024 1:42 PM EST 07/30/2024 1:42 PM EST us Generic External Data Provider LAB BLOOD ORDERAB LES Final Result [facility] [address] [place] [phone] * (ABNORMAL) Lipid Panel, Standard (05/15/2024 11:14 AM EDT) Triglycerides 96 <150 mg/dL [facility] Comment:Desirable Triglyceri de: less than 150 mg/dLBorderline High Triglyceride 150-199 mg/dLHigh Triglyceride: 200-499 mg/dLVery High Triglyceride: greater than or equal to 5OO mg/dL Cholesterol 204(H) <200 mg/dL [facility] Comment:Desirable Cholestero l: less than 200 mg/dLBorderline High Cholesterol: 200-239 mg/dLHigh Cholesterol: greater than 239 mg/dL LDL Cholesterol Calculated 92 <100 mg/dL [facility] Comment:Desirable LDL: less than 100 mg/dLNear Optimal/Above Optimal LDL: 110- 129 mg/dLBorderline High LDL: 130-159 mg/dLHigh LDL: 160-189 mg/dLVery High LDL: greater than or equal to 190 mg/dL HDL Cholesterol 93 >40 mg/dL [facility] Comment:Desirable HDL: great er than 40 mg/dL Note: This HDL assay may give artificially low results in patients with liver disease. 05/15/2024 11:1 4 AM EDT 05/15/2024 11:14 AM EDT us Generic External Data Provider LAB BLOOD ORDERAB LES Final Result [facility] [address] [place] [phone] * BI Mammogram Screening Tomosynthesis Bilateral (07/27/2023 11:27 AM EST) Anatomical Region Laterality Modality Breast Bilateral Mammography 07/27/2023 11:2 7 AM EST Narrative 08/14/2023 4:56 PM EST ? [facility] ? [address] ?[place] [address] ? Mammography Report ? Signed ? Patient: Johnson Chad,Elza ?MR#: [id number] ?? [id number] ? : 1970 ?Acct:[id number] ? Age/Sex: 53 / F ?ADM Date: 07/27/24 ? Loc: HO.MAMMO ? Attending Dr: Judy Galvan MD ? Ordering Physician: Judy Galvan MD ?Results: 1Ne ?? gative ? Date of Service: 07/27/23 ?Follow Up: 1 Year From Orig ?? inal Mammogram ? Procedure(s): MM tomosynthesis screening BI ?? Accession Number(s): [id number] ? cc: Judy Galvan MD ? EXAMINATION: [...] by Shivani Sarabia MD in OV> ? 08/14/24 1652 ? DD/ 1127 ? TD/TT: ? High School History Teacher: ? Procedure Note Donotuseinterpreter, Image - 08/14/2023 Renetta [facility] [address] [place], [place] [address] Mammography Report Signed Patient: Marvin Bhardwaj#: [id number] : 1970Acct:[id number] Age/Sex: 53 / FADM Date: 07/27/23 Loc: HO.MAMMO Attending Dr: Judy Galvan MD Ordering Physician: Judy Galvan MDResults: 1Ne gative Date of Service: 07/27/23Follow Up: 1 Year From Orig ina Mammogram Procedure(s): MM tomosynthesis screening BI Accession Number(s): [id number] cc: Judy Galvan MD EXAMINATION: MM SCREENING [...] in OV> 08/14/23 1652 DD/ 1127 TD/TT: High School History Teacher: Judy Galvan MD IMG BI PROCEDURES Final Result * HEPATITIS C AB W/REFL TO HCV RNA, QN, PCR (03/04/2021 10:50 AM EDT) HEPATITIS C ANTIBODY NON-REACT GIULIANO NON-REACT GIULIANO [facility] INDEX 0.03 <1.00 [facility] Comment: ?? HCV antibody was non-reactive. There is no laboratory ?? evidence of HCV infection. ?? In most cases, no further action is required. However, if recent HCV exposure is suspected, a test for HCV RNA (test code 01214) is suggested. ?? For additional information please refer to http://education.[employer]/faq/CGV00g5 (This link is being provided for informational/ educational purposes only.) ?? 03/04/2021 10:5 0 AM EDT Saran Elise MD HISTORICAL/NON ORDERABLE LAB S Final Result [facility] [address] * Hm Colonoscopy (12/08/2020 2:43 PM EDT) Historical Provider HEALTH MAINTENANCE Final Result * HPV E6/E7 RFLX IRVING 16 18/45 (07/29/2020 10:17 AM EST) HPV 16 RNA [facility] HPV 18/45 RNA [facility] HPV E6 E7 ADD [facility] HPV mRNA E6/E7 rflx Not Detected Not Detected [facility] Comment: This test was performed using the APTIMA HPV Assay ([employer] This assay detects E6/E7 viral messenger RNA (mRNA) from 14 high-risk HPV types (16,18,31,33,35,39,45,51,52,56,58,59,66,68). The analytical performance characteristics of this assay have been determined by [employer]. The modifications have not been cleared or approved by the FDA. This assay has been validated pursuant to the CLIA regulations and is used for clinical purposes. THIS TEST WAS PERFORMED AT: [facility] [address] [place] [address] [address] [place], [place] ??[phone] AVIS PARKER MD 07/29/2020 10:1 7 AM EST Juan Jose Gill MD HISTORICAL/NON ORDERABLE LABS Fi nal Result [facility] [address] from Last 3 Months or Most Recently Relevant to Health Maintenance Insurance [facility] C3 Care Teams Business Applications Specialist Relationship Specialty Start Date End Date Judy Galvan MD [address] [place] [phone] PCP - General Family Medicine 07/22/18
--- OUTSIDE RECORDS SUMMARY | 2024-09-11 16:07 | XMS_ITS | Encounter Summary ---
Author Organization [employer] Address [address] [place] [address] 7 [place] [address] Care Team Providers Care Mergers And Acquisitions Associate Name Role Phone Judy Galvan MD Primary Care Provider + Reason for Visit * Reason Onset Date Comments Appointment Request 01/22/2023 Encounter Details Date Type Department Care Team ([facility] st Contact Info) Description 01/22/[address] [facility] MEDICINE [address] [place], [place] [phone] Judy Galvan MD [address] [place], [place] [phone] Appointment Request Social History Tobacco Use Types [...] on 12/14/2022 . Please contact pt at [phone] Divehi Speaker documented in this encounter Plan of Treatment Upcoming Encounters Date Type Department Care Team (Late st Contact Info) Description 10/02/2024 12:00 PM EDT Office Visit [facility] MEDICINE [address] [place] [address] Judy Galvan MD [address] [place], [place] [phone] documented as of this encounter Visit Diagnoses Not on filedocumented in this encounter Additional Health Concerns Assessment Noted Time PHQ-9 Depression Total Score: 10 023 3:27 PM EDT documented as of this encounter Care Teams Mergers And Acquisitions Associate Relationship Specialty Start Date End Date Judy Galvan MD [address] [place] [phone] PCP - General Family Medicine 07/22/18 Anya Curry Warehouse Forklift Operator 08/29/23 11/27/23 documented as of this encounter
--- OUTSIDE RECORDS SUMMARY | 2024-09-11 16:07 | XMS_ITS | Encounter Summary ---
Author Organization [employer] Address [address] [facility] 7t [place] [address] Care Team Providers Care Manufacturing Maintenance Technician Name Role Phone Judy Galvan MD Primary Care Provider + Reason for Visit * Reason Comments Med Refill Encounter Details Date Type Department Care Team ([facility] st Contact Info) Description 08/10/2023 Refill [facility] MEDICINE [address] [place], [place] [phone] Judy Galvan MD [address] [place], [place] [phone] PUD (peptic ulcer disease) Social History Tobacco [...] 10/02/2024 12:00 PM EDT Office Visit [facility] MEDICINE [address] [place] [address] Judy Galvan MD [address] [place] [address] documented as of this encounter Visit Diagnoses Diagnosis PUD (peptic ulcer disease) Peptic ulcer, unspecified site, unspecified as acute or chronic, without mention of hemorrhage, perforation, or obstruction documented in this encounter Additional Health Concerns Assessment Noted Time PHQ-9 Depression Total Score: 0 06/26/20 23 9:44 AM EST documented as of this encounter Care Teams Manufacturing Maintenance Technician Relationship Specialty Start Date End Date Judy Galvan MD [address] [place] [address] PCP - General Family Medicine 07/22/18 Anya Curry Facility Engineer 08/29/23 11/27/23 documented as of this encounter
--- OUTSIDE RECORDS SUMMARY | 2024-09-11 16:07 | XMS_ITS | Encounter Summary ---
Author Organization [employer] Address [address] [facility] 7t [place] [address] Care Team Providers Care Student Teacher Name Role Phone Judy Galvan MD Primary Care Provider + Encounter Details Date Type Department Care Team (Late st Contact Info) Description 11/26/2023 Orders Only [facility] MEDICINE [address] [place] [address] Provider, MD Kirstin Social History Tobacco Use [...] Description 10/02/2024 12:00 PM EDT Office Visit [facility] MEDICINE [address] [place] [phone] Judy Galvan MD [address] [place] [phone] documented as of this encounter Procedures Procedure [...] documented as of this encounter Care Teams Student Teacher Relationship Specialty Start Date End Date Judy Galvan MD 230 [place] [address] PCP - General Family Medicine 07/22/18 Anya Curry Boring Mill Set Up Operator Vertical 08/29/23 11/27/23 documented as of this encounter
--- OUTSIDE RECORDS SUMMARY | 2024-09-11 16:07 | XMS_ITS | Encounter Summary ---
Author Organization [facility] Address [address] [place] [address] 7t [place] [address] Care Team Providers Care Medical Office Asst Name Role Phone Judy Galvan MD Primary Care Provider + Encounter Details Date Type Department Care Team (Late Contact Info) Description 01/02/2023 Abstract [facility] MEDICINE [address] [place], [place] [phone] Judy Galvan MD [address] [place], [place] [phone] Social History Tobacco Use Types Packs/Day Years [...] Description 10/02/2024 12:00 PM EDT Office Visit [facility] MED[facility] [address] [place], [place] [phone] Judy Galvan MD [address] [place] [address] documented as of this encounter Visit Diagnoses Not on filedocumented in this encounter Additional Health Concerns Assessment Noted Time PHQ-9 Depression Total Score: 10 12/14/ 023 3:27 PM EDT documented as of this encounter Care Teams Medical Office Asst Relationship Specialty Start Date End Date Judy Galvan MD [address] [place] [address] PCP - General Family Medicine 07/22/18 Anya Curry Grab Setter 08/29/23 11/27/23 documented as of this encounter
--- OUTSIDE RECORDS SUMMARY | 2024-09-11 16:07 | XMS_ITS | Clinical Summary ---
Author Organization [facility] Address [address] [place] [address] Care Team Providers Care Senior Architect/Design Manager Name Role Phone Judy Galvan MD Primary Care Provider [phone] Surgical History Surgery Date Site/Laterality Comments TUBAL [...] age to complete this topic Care Teams Senior Architect/Design Manager Relationship Specialty Start Date End Date Judy Galvan MD [address] [place] [phone] PCP - General 11/28/22
== END 2024-09-11 14:05 | disposition home or self-care (01) ==
PROVIDERS: PCP Internal Medicine; Visit Provider Nurse Practitioner Family
DX: R07.2 Precordial pain (principal); R22.2 Localized swelling, mass and lump, trunk; E66.01 Morbid (severe) obesity due to excess calories
CPT/HCPCS: 93010; 99214

== ENCOUNTER → 2024-09-11 13:28 | Outpatient (BNVA) | payer MEDICAID, SELFPAY | PROVIDERS: PCP Internal Medicine; Visit Provider Nurse Practitioner Family | DX: R07.2 Precordial pain (principal); R22.2 Localized swelling, mass and lump, trunk; E66.01 Morbid (severe) obesity due to excess calories; Z68.41 Body mass index [BMI] 40.0-44.9, adult | CPT/HCPCS: 93005; 99212 ==

== ENCOUNTER 2024-11-10 21:00 | Observation (INO) | payer MEDICAID, SELFPAY ==
--- NOTE | 2024-11-10 | ECG_ITS ---
Test Reason : dizziness Blood Pressure : */* mmHG Vent. Rate : 62 BPM Atrial Rate : 62 BPM P-R Int : 162 ms QRS Dur : 74 ms QT Int : 398 ms P-R-T Axes : 42 15 23 degrees QTcB Int : 403 ms Normal sinus rhythm Normal ECG When compared with ECG of 19-Apr-2024 19:01, No significant change was found Referred By: Generic ED Physician Electronically Signed By: Sathya Paiz
--- NOTE | ~2024-11-10 | XR_ITS ---
EXAMINATION: XR CHEST CLINICAL INFORMATION: wheezine, asthma COMPARISON: None available. TECHNIQUE: PA view of the chest was obtained. FINDINGS: The cardiac, hilar, and mediastinal contours are normal. The lungs are clear bilaterally. No pneumothorax or effusion. No focal osseous or soft tissue abnormality. XR/XR chest 1V IMPRESSION: Normal chest. Electronically signed by: Greg Rodriguez MD 11/11/2024 08:07 AM EDT
--- NOTE | ~2024-11-10 | MR_ITS ---
EXAMINATION: MR BRAIN WITHOUT CONTRAST CLINICAL INFORMATION: Intermittent numbness and weakness, left upper extremity. Headache. COMPARISON: Correlated to CT head and CT angiogram head neck dated November 11, 2024. TECHNIQUE: MRI of the brain was obtained using routine sequences without contrast. FINDINGS: No restricted diffusion. No acute intracranial hemorrhage, mass effect, midline shift, hydrocephalus or herniation. [place]-white matter differentiation is normal. 2 mm fluid signal characteristic in the deep white matter right cerebellum. Nonspecific hyperintense T2 FLAIR signal foci subcortical deep white matter frontal lobes. Flow-void signal within the main cerebral vessels is normal. Sellar/suprasellar region demonstrated no signal abnormality or gross masses. Craniocervical junction is intact and normal. Midline structures are normal. Prominence of the extra-axial CSF spaces along the hemicranial convexities likely related to mild volume loss. MR/MR head/brain wo con IMPRESSION: No acute brain abnormality. 2 mm CSF equivalent signal, deep white matter, right cerebellum. Consider simple cyst. Nonspecific T2 FLAIR signal bifrontal lobes. This could be seen patients with migraines.. Electronically signed by: Fredi Ragland MD 11/11/2024 04:08 PM EDT
--- NOTE | ~2024-11-10 | CT_ITS ---
CLINICAL HISTORY: intermittent L arm numbness, weakness, headache CT angiography head and neck with contrast. 3D Postprocessing. Comparison: CT/SR - CT HEAD/BRAIN WO IV CON - 11/10/24 21:57 EDT Findings: Aortic arch and cervical great vessels are patent with no aneurysm, dissection, hemodynamically significant stenoses, or occlusion. Intracranial arteries are patent. No aneurysm, dissection, hemodynamically significant stenoses, or occlusion. No abnormal intracranial enhancement. The visualized thyroid gland is unremarkable. No cervical mass or fluid collection. Lung apices clear. No acute fracture. IMPRESSION: Patent head and neck CTA. This document has been electronically signed by: Martin Laurent MD on 11/11/2024 03:31:36
--- NOTE | ~2024-11-10 | CT_ITS ---
CLINICAL HISTORY: headache, dizziness CT HEAD WITHOUT CONTRAST Comparison: CT/REG/OK/SR - CT HEAD/BRAIN WO IV CON - 12/26/22 13:01 EDT Findings: No acute intracranial hemorrhage, extra-axial fluid collection, hydrocephalus or midline shift. No significant atrophy-like change No significant white matter disease. There is no sinus or mastoid fluid. Visualized orbits: No acute abnormalities. There is no acute fracture. IMPRESSION: 1. No acute intracranial process. This document has been electronically signed by: Francine Pimentel DO on 11/10/2024 22:51:33
[2024-11-10 21:03] VITALS: BP 125/65; PULSE 66; RESP 16; TEMP 36.6; O2SAT 98; BMI 45.7
[2024-11-10 21:25] LABS: Basophils Percent Auto 0.4 % (0-2); Eosinophils Absolute Auto 0.2 X10*3/uL (0.0-0.4); Eosinophils Percent Auto 2.9 % (0-4); Hematocrit 37.2 % (37.0-47.0); Hemoglobin 12.7 g/dl (12.0-16.0); Imm Gran Abs Auto 0.03 X10*3/uL (0.00-0.03); Imm Gran Pct Auto 0.4 % (0.0-0.4); Lymphocytes Percent Auto 23.9 % (20-40); MANUAL DIFF FLAG NO; Mean Corpuscular HGB Conc 34.1 g/dl (31.0-35.0); Mean Corpuscular Hemoglobin 30.8 pg (27.0-33.0); Mean Corpuscular Volume 90.1 fL (80.0-98.0); Monocytes Absolute Auto 0.5 X10*3/uL (0.1-1.2); Neutrophils Absolute Auto 5.4 x10*3/uL (2.0-8.3); Neutrophils Percent Auto 66.4 % (45-73); Platelet Count 218 X10*3/uL (160-400); Red Blood Count 4.13 X10*6/uL (4.20-5.50); Red Cell Distribution Width 13.1 % (11.0-16.0); White Blood Count 8.2 X10*3/uL (4.8-10.8)
--- OUTSIDE RECORDS SUMMARY | 2024-11-10 21:37 | XMS_ITS | Encounter Summary ---
Author Organization [employer] Address [address] [facility] 7t [place] [address] Care Team Providers Care Director Meetings Name Role Phone Judy Galvan MD Primary Care Provider + Reason for Visit * Reason Onset Date Comments Appointment Request 01/22/2023 Encounter Details Date Type Department Care Team (Late st Contact Info) Description 01/22/2023 Telephone [facility] MEDICINE [address] [place], [place] [phone] Judy Galvan MD 230 [place], [place] [phone] Appointment Request Social History Tobacco Use Types [...] on 12/14/2022 . Please contact pt at [phone] Bhutanese Speaker documented in this encounter Plan of Treatment Upcoming Encounters Date Type Department Care Team (Late st Contact Info) Description 11/21/2024 9:15 AM EDT Office Visit [facility] MEDICINE [address] [place] [address] Basim Patiño MD 230 [place] [address] 02/06/2025 11:45 AM EDT Office Visit [facility] MEDICINE [address] [place] [address] Judy Galvan MD 230 [place], [place] [phone] documented as of this encounter Visit Diagnoses Not on filedocumented in this encounter Additional Health Concerns Assessment Noted Time PHQ-9 Depression Total Score: 10 023 3:27 PM EDT documented as of this encounter Care Teams Director Meetings Relationship Specialty Start Date End Date [place] [address] PCP - General Family Medicine 07/22/18 Anya Curry Manager Library 08/29/23 11/27/23 documented as of this encounter
--- OUTSIDE RECORDS SUMMARY | 2024-11-10 21:37 | XMS_ITS | Encounter Summary ---
Author Organization [employer] Address [address] [place] [address] 7t [place] [address] Care Team Providers Care Central Scheduler Name Role Phone Judy Galvan MD Primary Care Provider + Encounter Details Date Type Department Care Team ([facility] Contact Info) Description 01/02/2023 Abstract [facility] MEDICINE [address] [place] [address] [phone] Judy Galvan MD 230 [place], [place] [phone] Social History Tobacco Use Types Packs/Day Years [...] Department Care Team (Late Contact Info) Description 11/21/2024 9:15 AM EDT Office Visit [facility] MEDICINE [address] [place] [phone] Basim Patiño MD 230 [place], [place] [phone] 02/06/2025 11:45 AM EDT Office Visit [facility] MEDICINE [address] [place] [address] [phone] Judy Galvan MD [address] [place], [place] [phone] documented as of this encounter Visit Diagnoses Not on filedocumented in this encounter Additional Health Concerns Assessment Noted Time PHQ-9 Depression Total Score: 10 023 3:27 PM EDT documented as of this encounter Care Teams Central Scheduler Relationship Specialty Start Date End Date Judy Galvan MD [address] [place] [address] [phone] PCP - General Family Medicine 07/22/18 Anya Curry Auto Fleet Maintenance Manager 08/29/23 11/27/23 documented as of this encounter
--- OUTSIDE RECORDS SUMMARY | 2024-11-10 21:37 | XMS_ITS | Encounter Summary ---
Author Organization [employer] Address [address] [place] [address] 7t [place] [address] Care Team Providers Care Institute Scientist Name Role Phone Judy Galvan MD Primary [...] Description 11/21/2024 9:15 AM EDT Office Visit [facility] MEDICINE [address] [place] [phone] Basim Patiño MD [address] [place] [address] 02/06/2025 11:45 AM EDT Office Visit [facility] MEDICINE [address] [place] [phone] Judy Galvan MD [address] [place] [address] documented as of this encounter Visit Diagnoses Not on filedocumented in this encounter Care Teams Institute Scientist Relationship Specialty Start Date End Date Judy Galvan MD [address] [place] [address] PCP - General Family Medicine 07/22/18 Anya Curry Resident Associate 08/29/23 11/27/23 documented as of this encounter
--- OUTSIDE RECORDS SUMMARY | 2024-11-10 21:37 | XMS_ITS | Encounter Summary ---
Author Organization [employer] Address [address] [facility] 7t [place] [address] Care Team Providers Care Coat Cutter Name Role Phone Judy Galvan MD Primary Care Provider + Encounter Details Date Type Department Care Team (Late st Contact Info) Description 08/04/[address] [facility] [address] [place] [address] Yasmin Garcia LPN Social History Tobacco Use [...] Description 11/21/2024 9:15 AM EDT Office Visit [facility] MEDICINE [address] [place] [phone] Basim Patiño MD [address] [place] [phone] 02/06/2025 11:45 AM EDT Office Visit [facility] MED[facility] [address] [place] [phone] Judy Galvan MD [address] [place] [phone] documented as of this encounter Visit Diagnoses Not on filedocumented in this encounter Care Teams Coat Cutter Relationship Specialty Start Date End Date Judy Galvan MD [address] [place] [phone] PCP - General Family Medicine 07/22/18 Anya Curry Chief Development Officer 08/29/23 11/27/23 documented as of this encounter
[2024-11-10 21:38] LABS: Alanine Aminotransferase 25 U/L (0-31); Alkaline Phosphatase 102 U/L (39-117); Anion Gap 14 (12-20); Aspartate Amino Transferase 21 U/L (5-31); Bilirubin Total 0.2 mg/dL (0.0-1.0); Blood Urea Nitrogen 16 mg/dL (9-16); Calcium 8.8 mg/dL (8.4-10.2); Carbon Dioxide 24 mmol/L (22-29); Chloride 107 mmol/L (96-108); Creatinine Clr Calc Pharmacy 123.4; Estimated Glomerular Filt Rate > 60; Glucose Random 114 mg/dL (60-115); Potassium 3.9 mmol/L (3.3-5.1); Sodium 141 mmol/L (135-145)
--- OUTSIDE RECORDS SUMMARY | 2024-11-10 21:38 | XMS_ITS | Encounter Summary ---
Author Organization [employer] Address [address] [facility] 7t [place] [address] Care Team Providers Care Director Of Broadcast Name Role Phone Judy Galvan MD Primary Care Provider + Reason for Visit * Reason Comments Med Refill Encounter Details Date Type Department Care Team ([facility] st Contact Info) Description 08/17/2023 Refill [facility] MEDICINE [address] [place], [place] [phone] Judy Galvan MD [address] [place], [place] [phone] Asthma, unspecified asthma severity, unspecified whether complicated, [...] Description 11/21/2024 9:15 AM EDT Office Visit [facility] MEDICINE [address] [place] [phone] Basim Patiño MD [address] [place] [address] 02/06/2025 11:45 AM EDT Office Visit [facility] MEDICINE [address] [place] [phone] Judy Galvan MD [address] [place] [address] documented as of this encounter Visit Diagnoses Diagnosis Asthma, unspecified asthma severity, unspecified whether complicated, unspecified whether persistent documented in this encounter Additional Health Concerns Assessment Noted Time PHQ-9 Depression Total Score: 0 06/26/20 23 9:44 AM EST documented as of this encounter Care Teams Director Of Broadcast Relationship Specialty Start Date End Date Judy Galvan MD [address] [place] [phone] PCP - General Family Medicine 07/22/18 Anya Curry Castings Drafter 08/29/23 11/27/23 documented as of this encounter
--- OUTSIDE RECORDS SUMMARY | 2024-11-10 21:38 | XMS_ITS | Encounter Summary ---
Author Organization [employer] Address [address] [facility] 7t [place] [address] Care Team Providers Care Shade Maker Name Role Phone Judy Galvan MD Primary Care Provider + Reason for Visit * Reason Onset Date Comments January recall 11/06/2024 Encounter Details Date Type Department Care Team (Late st Contact Info) Description 11/06/2024 Telephone [facility] MEDICINE 230 [place], [place] [phone] Judy Galvan MD 230 [place], [place] [phone] January recall Social History Tobacco Use Types Packs/Day Years Used Date Smoking Tobacco: Never Passive Smoke Exposure: Never Smokeless Tobacco: Never Alcohol Use Standard [...] encounter Miscellaneous Notes * Telephone Encounter - Fani Spencer MA - 11/06/2024 9:47 AM EDT Telephone call to patient to schedule the following recall: Visit type: Follow up Appointment notes: weight Patient agree to appointment on 02/06/25 at 11:45 AM with Cole. documented in this encounter Plan of Treatment Upcoming Encounters Date Type Department Care Team (Late st Contact Info) Description 11/21/2024 9:15 AM EDT Office Visit [facility] MEDICINE [address] [place] [phone] Basim Patiño MD [address] [place] [address] 02/06/2025 11:45 AM EDT Office Visit [facility] MEDICINE [address] [place] [address] Judy Galvan MD [address] [place] [phone] documented as of this encounter Visit Diagnoses Not on filedocumented in this encounter Additional Health Concerns Assessment Noted Time PHQ-9 Depression Total Score: 0 06/26/20 23 9:44 AM EST documented as of this encounter Care Teams Shade Maker Relationship Specialty Start Date End Date Judy Galvan MD [address] [place] [phone] PCP - General Family Medicine 07/22/18 documented as of this encounter
--- OUTSIDE RECORDS SUMMARY | 2024-11-10 21:38 | XMS_ITS | Clinical Summary ---
Author Organization [employer] Address 75 [facility] 7t [place] [address] Care Team Providers Care Batter Mixer Name Role Phone Judy Galvan MD Primary Care Provider + Allergies No known active allergies Medications Misc. Devices (Pulse Oximeter) miscIndications: Moderate persistent asthma with exacerbation 1 each if needed (SOB). 1 each 3 Active lidocaine (Lidoderm) 5 % patch APPLY 1 PATCH TOPICALLY TO SKIN, LEAVE ON FOR 12 HOURS AND OFF FOR 12 HOURS DIRECTED 3 Active Omeprazole 20 MG tablet delayed-releaseI ndications:PUD (peptic ulcer disease) Take 20 mg by mouth in the morning. 90 tablet 4 Active budesonide-formo terol (Symbicort) 80-4.5 MCG/ACT inhalerIndicatio ns:Moderate persistent asthma without complication Inhale 2 puffs in the morning and at bedtime. Rinse mouth with water after use to reduce aftertaste and incidence of candidiasis. Do not swallow. 10.2 g 11 4 Active albuterol (Ventolin HFA) 108 (90 Base) MCG/ACT inhalerIndicatio ns:Asthma, unspecified asthma severity, unspecified whether complicated, unspecified [...] BEDTIME (DRYNESS) 45 g 2 4 Active Acetaminophen Extra Strength 500 MG tabletIndication s:Spasm of left trapezius muscle Take 1 tablet (500 mg) by mouth every 12 (twelve) hours if needed (pain). 120 tablet 5 Active cyclobenzaprine (Flexeril) 10 MG tablet Take 1 tablet (10 mg) by mouth at bedtime for 10 days. 10 tablet 5 Active Diclofenac Sodium 1 % gel Apply 1 inch topically if needed in the morning and at bedtime (pain). 60 g 5 11/02/19 25 Active Problems Problem Noted Date Diagnosed Date Spasm of left trapezius muscle 10/02/2024 Assessment & Plan (10/02/2024 1:48 PM EDT): Take Tylenol prn + Diclofenac gel BID prn + Flexeril QHS. Maxillary pain 05/29/2024 Assessment & Plan (05/29/2024 1:52 PM EST): No evidence of sinusitis. Fu with dentist to complete root canal procedure. EIN (endometrial intraepithelial neoplasia) 05/16 Assessment & Plan (10/02/2024 1:47 PM EDT): Resolved, s/p TH + BSO. Fu with [facility] oncology. Obtain report of surgical biopsy. Assessment & Plan (05/29/2024 1:51 PM EST): Seen by Dr. Neal xxx [facility] in the past, she will have a [...] HPV (human papilloma virus) anogenital infection 03/02/2023 Assessment & Plan (10/02/2024 1:50 PM EDT): She is s/p hysterectomy due to diagnosis of EIN. Fu closely with [facility]. Myalgia 03/02/2023 Well woman exam 03/02/2023 TMJ [...] Liver US ) liver elastography on 03/27/24 ([facility]) showed measurements are consistent with a moderate [...] at least . She was referred to [facility] ONC. Moderate persistent asthma without complication 07/22/2018 Assessment & Plan (10/02/2024 1:48 PM EDT): Controlled. Continue Symbicort + Albuterol prn. Assessment & Plan (06/26/2023 10:25 AM EST): [...] albuterol PRN Obesity 07/22/2018 Assessment & Plan (10/02/2024 1:49 PM EDT): Discussed re weight reduction options including exercise, life style modifications, diet. Recommended to decrease soda and sugary beverage consumption, increase protein intake with meals (at least 1 portion of protein with each meal) to assist with satiety, increase dietary fiber Recommended at least 150 min/week of moderate intensity exercise. Pt will continue to fu with product lister at [facility] weight management program and with provider regarding medication management. Assessment & Plan (05/29/2024 1:53 PM EST): Discussed re weight reduction options including exercise, life style modifications, diet and referral to junk removal specialist. Recommended to decrease soda and sugary beverage consumption, increase protein intake with meals (at least 1 portion of protein with each meal) to assist with satiety, increase dietary fiber Recommended at least 150 min/week of moderate intensity exercise. Fu weight management program at [facility]. Resolved Problems Problem Noted Date Diagnosed Date Resolved Date Endometrial carcinoma 05/29/20242024 Assessment & Plan (10/02/2024 1:00 PM EDT): N/A Assessment & Plan (05/29/2024 1:20 PM EST): Not a diagnosis Overweight 05/29/2024 05/29/2024 Closed fracture of multiple [...] Encounters Date Type Department Care Team Description 11/10/2024 Orders Only GENERIC EXTERNAL DATA DEPARTMENT Provider, Generic External Data 11/06/2024 Telephone [facility] [address] [place] [phone] Judy Galvan MD January recall 10/02/2024 12:00 PM EDT Office Visit [address] [address] Judy Galvan MD EIN (endometrial intraepithelial neoplasia) (Primary Dx); Class 3 severe obesity due to excess calories with serious comorbidity and body mass index (BMI) of 45.0 to 49.9 in adult (CMS/[facility]); Spasm of left trapezius muscle; Moderate persistent asthma without complication; HPV (human papilloma virus) anogenital infection; Dietary counseling; Exercise counseling 10/02/2024 Telephone [facility] [address] [place] [address] Judy Galvan MD 10/02/2024 Travel 10/01/[address] [address] Judy Galvan MD Chart prep 09/26/2024 Population Health Risk Score Community Care [facility] (C3) Department [address] [place] [phone] Provider, Population Health Generic 09/24/2024 Patient Outreach [facility] [address] [place] [address] Judy Galvan MD Pre-visit Planning ((Unable to reach for PVP screening, LVM)) from Last 3 Months Immunizations Name Administration [...] Sign Reading Time Taken Comments Blood Pressure 130/80 10/02/2024 12:53 PM EDT Pulse 58 10/02/2024 12:26 PM EDT Temperature 36.4 ??C (97.6 ??F) 10/02/2024 12:26 PM E DT Respiratory Rate 12 10/02/2024 12:26 PM EDT Oxygen Saturation 99% 10/02/2024 12:26 PM EDT Inhaled Oxygen Concentration - - Weight 113 kg (250 lb 2 oz) 10/02/2024 12:26 PM EDT Height 157.5 cm (5' 2 ) 10/02/2024 12:26 PM EDT Body Mass Index 45.75 10/02/2024 12:26 PM EDT Plan of Treatment Upcoming Encounters Date Type Department Care Team (Late st Contact Info) Description 11/21/2024 9:15 AM EDT Office Visit [facility] [address] [place] [phone] Basim Patiño MD [address] [place] [phone] 02/06/2025 11:45 AM EDT Office Visit [facility] [address] [place] [address] [phone] Judy Galvan MD [address] [place], [place] [phone] Health Maintenance Due Date Last Done Comments CT Colonography 1970 FIT DNA/Cologuard 1970 FIT 1970 FOBT 1970 HIV Screening 1970 Sigmoidoscopy 1970 Pneumococcal Vaccine: 50+ Years (1 of 2 - PCV) 1989 Zoster Vaccines (1 of 2) 01/22/2020 Hepatitis B Vaccines (2 of 3 - 19+ 3-dose series) 04/20/2021 03/23/2021 COVID-19 Vaccine ( - 2023-2 5 season) 2024 11/06/2020, 10/05/2020 Depression Screening 06/26/2024 06/26/2023, 06/26/2023 SDOH Screening 07/24/2024 07/24/2023 Mammogram 07/27/2024 07/27/2023, 04/02/2020, 07/30/2018 Alcohol/Substance Use Screening 02/06/2025 02/07/2024 Cervical Cancer Screening 07/29/2025 HPV/Cotest 07/29/2025 07/29/2020 Pap Smear 07/29/2025 Tobacco Screening 10/02/2025 10/02/2024 DTaP/Tdap/Td Vaccines (2 - T d or [...] Procedure Name Priority Date/Time Associated Diagnosis Comments CBC WITH AUTO DIFFERENTIAL Routine 11/10/2024 9:20 PM EDT LIPID PANEL, STANDARD Routine 05/15/2024 11:14 AM [...] Recently Relevant to Health Maintenance Results * (ABNORMAL) CBC auto differential (11/10/2024 9:20 PM EDT) White Blood Count 8.2 4.8 - 10.8 X10*3/uL [facility] Red Blood Count 4.13(L) 4.20 - 5.50 X10*6/uL [facility] Hemoglobin 12.7 12.0 - 16.0 g/dl [facility] Hematocrit 37.2 37.0 - 47.0 % [facility] Mean Corpuscular Volume 90.1 80.0 - 98.0 fL [facility] Mean Corpuscular Hemoglobin 30.8 27.0 - 33.0 pg [facility] Mean Corpuscular HGB Conc 34.1 31.0 - 35.0 g/dl [facility] Red Cell Distribution Width 13.1 11.0 - 16.0 % [facility] Platelet Count 218 160 - 400 X10*3/uL [facility] Mean Platelet Volume 10.0 9.4 - 12.3 fL [facility] Neutrophils Percent Auto 66.4 45 - 73 % [facility] Imm Gran Pct Auto 0.4 0.0 - 0.4 % [facility] Lymphocytes Percent Auto 23.9 20 - 40 % [facility] Monocytes Percent Auto 6.0 2 - 11 % [facility] Eosinophils Percent Auto 2.9 0 - 4 % [facility] Basophils Percent Auto 0.4 0 - 2 % [facility] NRBC Pct Auto 0.0 0.0 - 0.2 /100WBC [facility] Neutrophils Absolute Auto 5.4 2.0 - 8.3 x10*3/uL [facility] Imm Gran Abs Auto 0.03 0.00 - 0.03 X10*3/uL [facility] Lymphocytes Absolute Auto 2.0 1.2 - 4.9 X10*3/uL [facility] Monocytes Absolute Auto 0.5 0.1 - 1.2 X10*3/uL [facility] Eosinophils Absolute Auto 0.2 0.0 - 0.4 X10*3/uL [facility] Basophils Absolute Auto 0.0 0.0 - 0.2 X10*3/uL [facility] NRBC Abs Auto 0.000 0.0 - 0.012 X10*3/uL [facility] 11/10/2024 9:20 PM EDT 11/10/2024 9:22 PM EDT us Generic External Data Provider LAB BLOOD ORDERAB LES Final Result [facility] [address] [place] [phone] * (ABNORMAL) Lipid Panel, Standard (05/15/2024 11:14 AM EDT) Triglycerides 96 <150 mg/dL [facility] Comment:Desirable Triglyceri de: less than 150 mg/dLBorderline High Triglyceride 150-199 mg/dLHigh Triglyceride: 200-499 mg/dLVery High Triglyceride: greater than or equal to 5OO mg/dL Cholesterol 204(H) <200 mg/dL [facility] Comment:Desirable Cholestero l: less than 200 mg/dLBorderline High Cholesterol: 200-239 mg/dLHigh Cholesterol: greater than 239 mg/dL LDL Cholesterol Calculated 92 <100 mg/dL [facility] Comment:Desirable LDL: less than 100 mg/dLNear Optimal/Above Optimal LDL: 110- 129 mg/dLBorderline High LDL: 130-159 mg/dLHigh LDL: 160-189 mg/dLVery High LDL: greater than or equal to 190 mg/dL HDL Cholesterol 93 >40 mg/dL [facility] Comment:Desirable HDL: great er than 40 mg/dL Note: This HDL assay may give artificially low results in patients with liver disease. 05/15/2024 11:1 4 AM EDT 05/15/2024 11:14 AM EDT us Generic External Data Provider LAB BLOOD ORDERAB LES Final Result [facility] [address] [place] [address] [phone] * BI Mammogram Screening Tomosynthesis Bilateral (07/27/2023 11:27 AM EST) Anatomical Region Laterality Modality Breast Bilateral Mammography 07/27/2023 11:2 7 AM EST Narrative 08/14/2023 4:56 PM EST ? [facility] [place] ? [address] ?[place] [address] ? Mammography Report ? Signed ? Patient: Johnson Elza Bonilla ?MR#: [id number] ?? [id number] ? : 1970 ?Acct:[id number] ? Age/Sex: 53 / F ?ADM Date: 07/27/23 ? Loc: HO.MAMMO ? Attending Dr: Judy Galvan MD ? Ordering Physician: Judy Galvan MD ?Results: 1Ne ?? gative ? Date of Service: 07/27/23 ?Follow Up: 1 Year From Orig ?? inal Mammogram ? Procedure(s): MM tomosynthesis screening BI ?? Accession Number(s): [id number] ? cc: Judy Galvan MD ? EXAMINATION: [...] by Shivani Sarabia MD in OV> ? 08/14/23 1652 ? DD/ 1127 ? TD/TT: ? Reproduction Machine Loader: ? Procedure Note Arnoldoter, Image - 08/14/2023 [facility] [address] [place] [address] Mammography Report Signed Patient: Marvin Bhardwaj#: [id number] : 1970Acct:[id number] Age/Sex: 53 / FADM Date: 07/27/23 Loc: APO Attending Dr: Judy Galvan MD Ordering Physician: Judy Galvanesults: 1Ne gative Date of Service: 07/27/23Follow Up: 1 Year From Orig inal Mammogram Procedure(s): MM tomosynthesis screening BI Accession Number(s): [id number] cc: Judy Galvan MD EXAMINATION: MM SCREENING [...] in OV> 08/14/23 1652 DD/ 1127 TD/TT: Reproduction Machine Loader: us Judy Galvan MD IMG BI PROCEDURES Final [...] a test for HCV RNA (test code 00645) is suggested. ?? For additional information please refer to http://education.[employer]/faq/JHI01m1 (This link is being provided for informational/ educational purposes only.) ?? 03/04/2021 10:5 0 AM EDT us Saran Elise MD HISTORICAL/NON ORDERABLE LAB S Final Result Performing Organization Address [facility] Co de Phone Number [facility] [address] [place] [address], * Hm Colonoscopy (12/08/2020 2:43 PM EDT) Historical Provider HEALTH MAINTENANCE Final Result * HPV E6/E7 RFLX IRVING 16 18/45 (07/29/2020 10:17 AM EST) HPV 16 RNA TNP [facility] HPV 18/45 RNA TNP [facility] HPV E6 E7 ADD TNP [facility] HPV mRNA E6/E7 rflx Not Detected Not Detected [facility] Comment: This test was performed using the APTIMA HPV Assay ([employer] This assay detects E6/E7 viral messenger RNA (mRNA) from 14 high-risk HPV types (16,18,31,33,35,39,45,51,52,56,58,59,66,68). The analytical performance characteristics of this assay have been determined by [employer]. The modifications have not been cleared or approved by the FDA. This assay has been validated pursuant to the CLIA regulations and is used for clinical purposes. THIS TEST WAS PERFORMED AT: [facility] [address] [place] [address],[address] [place], [place] ??[phone] AVIS PARKER MD 07/29/2020 10:1 7 AM EST Juan Jose Gill MD HISTORICAL/NON ORDERABLE LABS Fi nal Result Performing Organization Address [facility]/ZIP Co de Phone Number [facility] [address] from Last 3 Months or Most Recently Relevant to Health Maintenance Insurance [facility] C3 Care Teams Batter Mixer Relationship Specialty Start Date End Date Judy Galvan MD [address] [place] [phone] PCP - General Family Medicine 07/22/18
--- OUTSIDE RECORDS SUMMARY | 2024-11-10 21:38 | XMS_ITS | Encounter Summary ---
Author Organization [employer] Address 75 [facility] 7t [place] [address] Care Team Providers Care Sales Service Supervisor Name Role Phone Judy Galvan MD Primary Care Provider + Reason for Visit * Reason Comments Med Refill Encounter Details Date Type Department Care Team ([facility] st Contact Info) Description 08/10/2023 Refill [facility] [address] [place], [place] [phone] Judy Galvan MD [address] [place], [place] [phone] PUD (peptic ulcer disease) Social History Tobacco [...] Description 11/21/2024 9:15 AM EDT Office Visit [facility] [address] [place] [phone] Basim Patiño MD [address] [place] [phone] 02/06/2025 11:45 AM EDT Office Visit [facility] [address] [place] [phone] Judy Galvan MD [address] [place] [phone] documented as of this encounter Visit Diagnoses Diagnosis PUD (peptic ulcer disease) Peptic ulcer, unspecified site, unspecified as acute or chronic, without mention of hemorrhage, perforation, or obstruction documented in this encounter Additional Health Concerns Assessment Noted Time PHQ-9 Depression Total Score: 0 06/26/20 23 9:44 AM EST documented as of this encounter Care Teams Sales Service Supervisor Relationship Specialty Start Date End Date Judy Galvan MD [address] [place] [phone] PCP - General Family Medicine 07/22/18 Anya Curry Studio Owner 08/29/23 11/27/23 documented as of this encounter
--- OUTSIDE RECORDS SUMMARY | 2024-11-10 21:38 | XMS_ITS | Encounter Summary ---
Author Organization [employer] Address 75 [facility] 7t [place] [address] Care Team Providers Care Flow Worker Name Role Phone Judy Galvan MD Primary Care Provider + Encounter Details Date Type Department Care Team (Late st Contact Info) Description 11/26/2023 Orders Only [facility] [address] [place] [address] Provider, MD Kirstin Social History Tobacco Use [...] is your housing situation today? I have dougieviet pike 05/01/[address] you [...] t he electric, gas, oil or water [employer] threatened to shut off services in your [...] Description 11/21/2024 9:15 AM EDT Office Visit [facility] [address] [place] [phone] Basim Patiño MD [address] [place] [phone] 02/06/2025 11:45 AM EDT Office Visit [facility] [address] [place] [phone] Judy Galvan MD [address] [place] [phone] documented as of this encounter Procedures Procedure Name Priority Date/Time Associated Diagnosis Comments HM COLONOSCOPY Routine 12/08/2020 2:43 PM EDT documented in this encounter Results * Hm Colonoscopy (12/08/2020 2:43 PM EDT) Historical Provider HEALTH MAINTENANCE Final Result documented in this encounter Visit Diagnoses Not on filedocumented in this encounter Additional Health Concerns Assessment Noted Time PHQ-9 Depression Total Score: 0 06/26/20 23 9:44 AM EST documented as of this encounter Care Teams Flow Worker Relationship Specialty Start Date End Date Judy Galvan MD [address] [place] [phone] PCP - General Family Medicine 07/22/18 Anya Curry Thread Drawer 08/29/23 11/27/23 documented as of this encounter
--- OUTSIDE RECORDS SUMMARY | 2024-11-10 21:38 | XMS_ITS | Clinical Summary ---
Author Organization [facility] ity Address [address] [place] [address] Care Team Providers Care Filter Plant Operator Name Role Phone Judy Galvan MD Primary Care Provider [phone] Surgical History Surgery Date Site/Laterality Comments TUBAL LIGATION PROCEDURE: HISTORICAL TUBAL LIGATION CHOLECYSTECTOMY PROCEDURE: HISTORICAL CHOLECYSTECTOMY COLONOSCOPY PROCEDURE: HISTORICAL COLONOSCOPY Medical History Medical History Date Comments Mild intermittent asthma, uncomplicated DX:Mild intermittent asthma, uncomplicated Hypovitaminosis D DX:Hypovitamin osis D Morbid obesity (CMS/HCC V24, CMS/HCC V28) DX:Morbid obesity (HCC) History of COVID-19 DX:History o [...] Vaccine (2023-2 5 season) 2024 Influenza Vaccine (Season Ended) 2025 HIB Vaccines Aged Out No longer eligi [...] age to complete this topic Meningococcal B Vaccine Aged Out No l onger eligible based on patient's age to complete this topic RSV Immunization Patients Un asim 20 months Aged Out No longer eligible b ased on patient's age to complete this topic Varicella Vaccines Aged Out No longer eligible based on patient's age to complete this topic Care Teams Filter Plant Operator Relationship Specialty Start Date End Date Judy Galvan MD [address] [place] [phone] PCP - General 11/28/22
--- OUTSIDE RECORDS SUMMARY | 2024-11-10 21:38 | XMS_ITS | Encounter Summary ---
Author Organization [employer] Address 75 [facility] 7t [place] [address] Care Team Providers Care Room Service Clerk Name Role Phone Juyd Galvan MD Primary Care Provider + Encounter Details Date Type Department Care Team (Late st Contact Info) Description 11/10/2024 Orders Only GENERIC EXTERNAL DATA DEPARTMENT Provider, Generic External Data Social History Tobacco Use Types Packs/Day Years [...] Description 11/21/2024 9:15 AM EDT Office Visit [facility] [address] [place], [place] [phone] Basim Patiño MD [address] [place], [place] [phone] 02/06/2025 11:45 AM EDT Office Visit [facility] [address] [place], [place] [phone] Judy Galvan MD [address] [place], [place] [phone] documented as of this encounter Procedures Procedure Name Priority Date/Time Associated Diagnosis Comments CBC WITH AUTO DIFFERENTIAL Routine 11/10/2024 9:20 PM EDT documented in this encounter Results * (ABNORMAL) CBC auto differential (11/10/2024 9:20 PM EDT) White Blood Count 8.2 4.8 - 10.8 X10*3/uL [facility] Red Blood Count 4.13(L) 4.20 - 5.50 X10*6/uL [facility] Hemoglobin 12.7 12.0 - 16.0 g/dl [facility] Hematocrit 37.2 37.0 - 47.0 % [facility] Mean Corpuscular Volume 90.1 80.0 - 98.0 fL [facility] Mean Corpuscular Hemoglobin 30.8 27.0 - 33.0 pg [facility] Mean Corpuscular HGB Conc 34.1 31.0 - 35.0 g/dl [facility] Red Cell Distribution Width 13.1 11.0 - 16.0 % [facility] Platelet Count 218 160 - 400 X10*3/uL [facility] Mean Platelet Volume 10.0 9.4 - 12.3 fL [facility] Neutrophils Percent Auto 66.4 45 - 73 % [facility] Imm Gran Pct Auto 0.4 0.0 - 0.4 % [facility] Lymphocytes Percent Auto 23.9 20 - 40 % [facility] Monocytes Percent Auto 6.0 2 - 11 % [facility] Eosinophils Percent Auto 2.9 0 - 4 % [facility] Basophils Percent Auto 0.4 0 - 2 % [facility] NRBC Pct Auto 0.0 0.0 - 0.2 /100WBC [facility] Neutrophils Absolute Auto 5.4 2.0 - 8.3 x10*3/uL [facility] Imm Gran Abs Auto 0.03 0.00 - 0.03 X10*3/uL [facility] Lymphocytes Absolute Auto 2.0 1.2 - 4.9 X10*3/uL [facility] Monocytes Absolute Auto 0.5 0.1 - 1.2 X10*3/uL [facility] Eosinophils Absolute Auto 0.2 0.0 - 0.4 X10*3/uL [facility] Basophils Absolute Auto 0.0 0.0 - 0.2 X10*3/uL [facility] NRBC Abs Auto 0.000 0.0 - 0.012 X10*3/uL [facility] 11/10/2024 9:20 PM EDT 11/10/2024 9:22 PM EDT us Generic External Data Provider LAB BLOOD ORDERAB LES Final Result [facility] [address] [place] [phone] [phone] documented in this encounter Visit Diagnoses Not on filedocumented in this encounter Additional Health Concerns Assessment Noted Time PHQ-9 Depression Total Score: 0 06/26/20 23 9:44 AM EST documented as of this encounter Care Teams Room Service Clerk Relationship Specialty Start Date End Date Judy Galvan MD [address] [place] [phone] PCP - General Family Medicine 07/22/18 documented as of this encounter
--- NOTE | 2024-11-10 22:41 | ED_ITS ---
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 She felt tingles go down the arm. It did not last long it is gone now. She has not taken any medications. Her face hurts to touch. She has had no recent trauma, fevers, sinus infections or pressure. She has no CP/SOB. 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 She sits down and it gets better. She has not seen a doctor for this and she is not on thinners or aspirin MD elicited complaint: headache Onset (ago): day(s) (2) Onset description: gradually Location: frontal, facial and retro-orbital Severity: moderate Quality & Timing: throbbing Exacerbating factors: other (touching face, moving her eyes) Relieving factors: rest Context: occurred at rest Associated symptoms: tingling Treatments prior to arrival: none Related Data Home Medications ?Medication ?Instructions ?Recorded ?Confirmed budesonide-formoterol HFA 80 2 puff inhalation 12/21/22 09/11/24 mcg-4.5 mcg/actuation aerosol inhaler (Symbicort) albuterol sulfate 2.5 mg/3 mL mg inhalation TID PRN wheezing 08/16/23 09/11/24 (0.083 %) solution for nebulization albuterol sulfate 90 mcg/actuation 2 puff inhalation Q4-6H PRN 08/16/23 09/11/24 aerosol inhaler (Ventolin HFA) Wheezing fluticasone propionate 50 1 spray intranasal DAILY 02/29/24 09/11/24 mcg/actuation nasal spray,suspension gabapentin 300 mg capsule mg PO .prn 03/06/24 09/11/24 betamethasone valerate 0.1 % appl topical 09/05/24 09/11/24 topical cream Previous Rx's ?Medication ?Instructions ?Recorded cholecalciferol (vitamin D3) 50 50 mcg PO DAILY #90 caps 12/13/23 mcg (2,000 unit) capsule Allergies Allergy/AdvReac Type Severity Reaction Status Date / Time No Known Allergies Allergy Verified 11/10/24 21:06 [No Known Allergies*] Review of Systems 2 Review of Systems: Constitutional : No Fever, No Chills, No Fatigue ENT/Mouth : No sore throat, No Rhinorrhea Eyes: No Eye Pain, No Swelling, No Redness Cardiovascular : No Chest Pain, No SOB, No Dyspnea on Exertion Respiratory : No Cough, No Sputum Gastrointestinal : No Nausea, No Vomiting, No Diarrhea, No abdominal Pain Genitourinary : No Dysuria, No Urinary Frequency, No Hematuria, Musculoskeletal : No joint pain, No Myalgias, No Joint Swelling Skin : No Skin Lesions, No rash Neuro : No Weakness, No Numbness, No Dizziness, positive Headache Psych : No Anxiety/Panic, No Depression All other systems reviewed and are negative [facility] Past Medical History Attestation statement: The following information was validated with the patient. Source: old records reviewed Medical History Left chest thoracotomy scar GERD (gastroesophageal reflux disease) DJD (degenerative joint disease) Lipoma of lung History of COVID-19 Morbid obesity Hypovitaminosis D Asthma Surgical History Hx of total hysterectomy (~06/2024) History of lung surgery History of colonoscopy History of cholecystectomy History of bilateral tubal ligation History of Family History Family History Mother Hypertension Diabetes Father Cancer Daughter No problems noted. 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 Oriented X3. No acute distress. Eyes: Pupils equal, round and reactive to light. ENT: Pharynx normal. mild cheek ttp but no redness or signs of infection Neck: Normal inspection. Neck supple. CVS: Normal heart rate and rhythm. Pulses normal. Respiratory: No respiratory distress. Breath sounds normal. Abdomen: Soft and nontender. Skin: Skin warm and dry. Normal skin color. Normal skin turgor. Extremities: No lower extremity edema. No calf ttp Neuro: Oriented X 3. No motor deficit. No sensory deficit. CN2-12 intact NIH Stroke Scale Internal: Initial- Upon Arrival Level of Consciousness: Alert Level of Consciousness Questions: Answers both questions correctly Level of Consciousness Commands: Performs both tasks correctly Best Gaze: Normal Visual: No visual loss Facial Palsy: Normal Motor Arm (Right): No drift Motor Arm (Left): No drift Motor Leg (Right): No drift Motor Leg (Left): No drift Limb Ataxia: Absent Sensory: Normal Best Language: No aphasia Dysarthia: Normal Extinction and Inattention: No abnormality Score: 0 Medications Administered Discontinued Medications Generic Name Dose Route Start Last Admin Trade Name Freq PRN Reason Stop Dose Admin Hydrocodone Bitart/Acetaminophen 1 tab 11/10/24 22:58 11/10/24 23:21 Hydrocodone Bit/Acetam 5/325 Tablet PO 11/10/24 22:59 1 tab ONCE ONE Administration Iohexol 75 ml 11/11/24 01:41 11/11/24 01:42 Iohexol 350 Mg/Ml 75 Ml Infus..Btl IV 11/11/24 01:42 75 ml ONCE ONE Administration Medical Decision Making Medical Decision Making MDM Narrative: 54 yo female with PMH of asthma, GERD, obesity, reported CPR event in [place] related to a chest mass now here with 2 days of facial pain and headache worse with eye movements - L arm was tingling her symptoms are resolved other than headache and facial pain she has no neuro deficits. She denies fevers/head trauma. At this time could be sinusitis, facial pain, headache is on both sides of the head, she has no cervical radicular symptoms either. Will obtain EKG, labs, CT head for mass. Low susp for stroke. 1232am after discussion with patient I am more concerned for TIA she states she has had 2 episodes in the past week where her L arm goes numb and weak, unclear about the story difference on repeat interview. She will need CTA, aspirin and admit for TIA work up. Differential Diagnosis Differential Diagnoses: The differential diagnosis associated with the presentation includes sinusitis, tension headache, she has no HTN and no neuro findings it was tingling and not overt numbness or weakness - seems atypical for TIA and CVA gradual in onset and no fevers doubt SAH or [employer]PER[employer] infection Admission/Observation Consideration of admission/observation: Escalation of care including admission/observation considered would admit for possible TIA symptoms Consult Healthcare Provider Management of the patient was discussed with: Hospitalist (will admit) Lab Data MDM Lab Attestation statement: I reviewed the patient's lab results. 11/10/24 21:20 11/10/24 21:20 Labs: Lab Results 11/10/24 11/10/24 Range/Units 21:20 23:22 WBC 8.2 (4.8-10.8) X10*3/uL RBC 4.13 L (4.20-5.50) X10*6/uL Hgb 12.7 (12.0-16.0) g/dl Hct 37.2 (37.0-47.0) % MCV 90.1 (80.0-98.0) fL MCH 30.8 (27.0-33.0) pg MCHC 34.1 (31.0-35.0) g/dl RDW 13.1 (11.0-16.0) % Plt Count 218 (160-400) X10*3/uL MPV 10.0 (9.4-12.3) fL Immature Gran % (Auto) 0.4 (0.0-0.4) % Neut % (Auto) 66.4 (45-73) % Lymph % (Auto) 23.9 (20-40) % [place] % (Auto) 6.0 (2-11) % Eos % (Auto) 2.9 (0-4) % Baso % (Auto) 0.4 (0-2) % Lymph # (Auto) 2.0 (1.2-4.9) X10*3/uL [place] # (Auto) 0.5 (0.1-1.2) X10*3/uL Eos # (Auto) 0.2 (0.0-0.4) X10*3/uL Baso # (Auto) 0.0 (0.0-0.2) X10*3/uL Abs Immat Gran (auto) 0.03 (0.00-0.03) X10*3/uL Absolute Neuts (auto) 5.4 (2.0-8.3) x10*3/uL Absolute Nucleated RBC 0.000 (0.0-0.012) X10*3/uL Nucleated RBC % (auto) 0.0 (0.0-0.2) /100WBC Sodium 141 (135-145) mmol/L Potassium 3.9 (3.3-5.1) mmol/L Chloride 107 (96-108) mmol/L Carbon Dioxide 24 (22-29) mmol/L Anion Gap 14 (12-20) BUN 16 (9-16) mg/dL Creatinine 0.62 (0.5-1.4) mg/dL Estim Creat Clear Calc 123.4 Estimated GFR > 60 Random Glucose 114 (60-115) mg/dL Calcium 8.8 D (8.4-10.2) mg/dL Total Bilirubin 0.2 (0.0-1.0) mg/dL AST 21 (5-31) U/L ALT 25 (0-31) U/L Alkaline Phosphatase 102 (39-117) U/L Total Protein 7.0 (6.5-8.0) g/dL Albumin 4.0 (3.5-5.0) g/dL Triglycerides 88 (<150) mg/dL Cholesterol 212 H (<200) mg/dL LDL Cholesterol, Calc 95 (<100) mg/dL HDL Cholesterol 100 (>40) mg/dL Influenza Type A (PCR) NEGATIVE (Negative) Influenza Type B (PCR) NEGATIVE (Negative) RSV RNA Qual (PCR) NEGATIVE (Negative) SARS-CoV-2 RNA (RT-PCR) NEGATIVE (Negative) Independent Interpretation I performed an independent interpretation of an: EKG and CT Scan (normal ) Interpretation: Rate: 62 Rhythm: NSR [place]: normal Normal P waves. Normal [place]. Normal QRS complex. ST T wave : inverted t wave V1, no WAQAR qTC: 403 prior studies: no acute ischemia The study has been interpreted contemporaneously by me. . Radiology Impression Discussion of test interpretation with radiology: I have reviewed the radiologist's reading. Discharge Plan Discharge Clinical Impression: Brain TIA Patient Disposition: Admitted As Inpatient Prescriptions: No Action budesonide-formoterol [Symbicort] 80-4.5 mcg/actuation HFA aerosol inhaler 2 puff inhalation albuterol sulfate [Ventolin HFA] 90 mcg/actuation HFA aerosol inhaler 2 puff inhalation Q4-6H PRN (Reason: Wheezing) albuterol sulfate 2.5 mg /3 mL (0.083 %) solution for nebulization inhalation TID PRN (Reason: wheezing) fluticasone propionate 50 mcg/actuation spray,suspension 1 spray intranasal DAILY gabapentin 300 mg capsule PO .prn betamethasone valerate 0.1 % cream topical cholecalciferol (vitamin D3) 50 mcg (2,000 unit) capsule 50 mcg PO DAILY Qty: 90 3RF Print Language: Lebanese
[2024-11-10] MEDS: HYDROcodone Bit/Acetam 5/325 TABLET 1 TAB PO (23:21)
[2024-11-11] VITALS (10 sets, daily range): BP systolic 108–122; BP diastolic 48–68; PULSE 53–69; RESP 16–17; TEMP 36.4–37; O2SAT 95–100
[2024-11-11 00:02] LABS: Influenza A PCR NEGATIVE (Negative); Influenza B PCR NEGATIVE (Negative); Resp Syncy Virus RNA Qual PCR NEGATIVE (Negative); SARS COV2 PCR INHOUSE NEGATIVE (Negative)
[2024-11-11 00:45] LABS: Cholesterol 212 mg/dL (<200); HDL Cholesterol 100 mg/dL (>40); LDL Cholesterol Calculated 95 mg/dL (<100); Triglycerides 88 mg/dL (<150)
[2024-11-11] MEDS: iohexoL 350 MG/ML 75 ML INFUS..BTL IV (01:42)
--- NOTE | 2024-11-11 04:05 | P.HPHOSP_ITS ---
History of Present Illness Date of Service: 11/11/24 Attending physician on admission: Alfie Chaves Chief Complaint: weakness Patient is a 54-year-old female Luxembourgish-speaking only with past medical history of GERD, nonalcoholic fatty liver disease, morbid obesity, asthma, rib fractures, CPR recipient in [place] related to a chest mass, chest lipoma with removal, degenerative joint disease, eczema presents with reports of dizziness and left facial and arm numbness with tingling yesterday. Pt continues to have facial pressure and RENO but states the numbness and tingling resolved yesterday. Sinuses are not tender with palpation. No nuchal rigiditiy on exam. VSS. pt afebrile. No leukocytosis. Neuro exam remains normal. CTA performed was negative for any acute findings. CT head also negative. Patient being admitted for observation for TIA, MRI of the brain, neurology consult and PT eval in the morning. Patient does have history of asthma and is currently mildly wheezy on exam. Patient denies any cough or. recent fever or chills. Patient's sats are 100% on room air. Patient does not use home O2. Viral studies all negative. Will obtain chest x-ray. Providing duo nebs and supportive care. Review of Systems 2 Review of Systems: Patient currently denies any chest pain, abdominal pain, nausea, vomiting, constipation or diarrhea. Patient does note that she is slightly wheezy on inspiration. Patient has these asthmatic symptoms off and on. Patient denies any fever or chills or recent respiratory infection. Yes all other systems are reviewed and are negative [facility] Medical History Left chest thoracotomy scar GERD (gastroesophageal reflux disease) DJD (degenerative joint disease) Lipoma of lung History of COVID-19 Morbid obesity Hypovitaminosis D Asthma Cognitive capacity: Alert and orientated x3 Functional capacity: independent ambulation Patient : No Family History Mother Hypertension Diabetes Father Cancer Daughter No problems noted. Son Asthma Son Hypoglycemia Surgical History Hx of total hysterectomy (~06/2024) History of lung surgery History of colonoscopy History of cholecystectomy History of bilateral tubal ligation History of Social History Household Members: Children Alcohol intake: current Alcohol intake frequency: does not drink Patient Tobacco Use Status: Former Tobacco user Smoked in Last 30 Days: No Use of substances other than those prescribed or required for medical reasons: No Advance Directives: No Advance Directives Information Provided: No Do you have a plan to hurt others: No Plan Nutrition Risks: No Nutritional Risk Patient : No Current occupational status: employed 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 Sexual orientation: Straight/Heterosexual Gender identity: Female Ebola Risk: Travel/Contact With Anyone From Affected Area/s: No Has Patient Experienced Ebola Symptoms: No Meds Allergies Allergy/AdvReac Type Severity Reaction Status Date / Time No Known Allergies Allergy Verified 11/10/24 21:06 [No Known Allergies*] Home Medications ?Medication ?Instructions ?Recorded ?Confirmed ?Last Taken ?Type budesonide-formoterol HFA 80 2 puff inhalation 12/21/22 09/11/24 Unknown History mcg-4.5 mcg/actuation aerosol inhaler (Symbicort) albuterol sulfate 2.5 mg/3 mL mg inhalation TID PRN wheezing 08/16/23 09/11/24 Unknown History (0.083 %) solution for nebulization albuterol sulfate 90 mcg/actuation 2 puff inhalation Q4-6H PRN 08/16/23 09/11/24 05/07/24 07:00 History aerosol inhaler (Ventolin HFA) Wheezing fluticasone propionate 50 1 spray intranasal DAILY 02/29/24 09/11/24 Unknown History mcg/actuation nasal spray,suspension gabapentin 300 mg capsule mg PO .prn 03/06/24 09/11/24 Unknown History betamethasone valerate 0.1 % appl topical 09/05/24 09/11/24 Unknown History topical cream Physical Exam 2 Vital Signs and Narrative: Vital Signs: Last Vital Signs Temp 97.7 F 11/11/24 03:09 Pulse 53 11/11/24 03:09 Resp 16 11/11/24 03:09 BP 122/66 11/11/24 03:09 Pulse Ox 100 11/11/24 03:09 O2 Del Method Room Air 11/11/24 03:09 BMI result Body Mass Index 45.7 Alert and orientated X3, in NAD Neuro: CN II-X11 intact, no deficits, visual acuity intact EYES: PERRLA, EOM intact, conjunctiva pink HEENT: hearing intact, sinuses nontender with palpation, no issues with swallowing, uvula midline, lips moist, nares patent no epistaxis Cardiac: S1 S2 RRR, no murmur, no JVD, no edema in Lower ext Pulmonary: lungs B upper chest wheeze, no rhonchi Abdominal: BS active in all 4 quadrants, no guarding, tenderness, rebounding, pt is obese MSK: strength 5/5 upper and lower extremities : no CVA tenderness no bladder distension Extremities: no edema in lower extremities, PT and DP pulses palpable +2 Psych: mood stable, judgement and insight good Skin: no open wounds Results Labs 11/10/24 21:20 11/10/24 21:20 Labs: Laboratory Results - last 24 hr 11/10/24 11/10/24 21:20 23:22 MCV 90.1 MCH 30.8 MCHC 34.1 RDW 13.1 Plt Count 218 MPV 10.0 Immature Gran % (Auto) 0.4 Neut % (Auto) 66.4 Lymph % (Auto) 23.9 [place] % (Auto) 6.0 Eos % (Auto) 2.9 Baso % (Auto) 0.4 Lymph # (Auto) 2.0 [place] # (Auto) 0.5 Eos # (Auto) 0.2 Baso # (Auto) 0.0 Abs Immat Gran (auto) 0.03 Absolute Neuts (auto) 5.4 Absolute Nucleated RBC 0.000 Nucleated RBC % (auto) 0.0 Anion Gap 14 Estim Creat Clear Calc 123.4 Estimated GFR > 60 Random Glucose 114 Calcium 8.8 D Total Bilirubin 0.2 AST 21 ALT 25 Alkaline Phosphatase 102 Total Protein 7.0 Albumin 4.0 Triglycerides 88 Cholesterol 212 H LDL Cholesterol, Calc 95 HDL Cholesterol 100 Influenza Type A (PCR) NEGATIVE Influenza Type B (PCR) NEGATIVE RSV RNA Qual (PCR) NEGATIVE SARS-CoV-2 RNA (RT-PCR) NEGATIVE ECG Attestation: I personally reviewed and interpreted this ECG as follows: (NSR ) Imaging Radiologist's Impressions: CTA head and neck Findings: Aortic arch and cervical great vessels are patent with no aneurysm, dissection, hemodynamically significant stenoses, or occlusion. Intracranial arteries are patent. No aneurysm, dissection, hemodynamically significant stenoses, or occlusion. No abnormal intracranial enhancement. The visualized thyroid gland is unremarkable. No cervical mass or fluid collection. Lung apices clear. No acute fracture. IMPRESSION: Patent head and neck CTA. CT Head no acute findings Assessment and Plan (1) Brain TIA: Status: Acute Plan Patient is a 54-year-old female Luxem[place]ish-speaking only with past medical history of GERD, nonalcoholic fatty liver disease, morbid obesity, asthma, rib fractures, chest lipoma with removal, degenerative joint disease, eczema presents with reports of dizziness and left facial and arm numbness with tingling. CTA negative for any acute findings. Neuro exam is within normal limits. Patient being admitted under observation for TIA. TIA/ Headache -CTA of the head and neck, CT of the head negative for any acute findings including sinusitis -MRI of the brain in the a.m. -Neurology consult -ASA 81 mgs daily -PT eval in the a.m. -monitor on telemetry -orthostatics in AM -A1C, Lipid panel pending -Tylenol for RENO (no migraine hx) -PT eval Asthma/ active wheeze -CXR ordered -Duo neb now and prn -Budesoinde BID -POX 100% on RA -No indication for ABX, review need or prednisone taper if no improvement -All viral studies negative DVT prophylaxis: Lovenox MED REC pending Quality Stroke Does the patient have a stroke diagnosis?: No Reason for No Anti-thrombotic by Day Two: N/A - Med Ordered VTE Prior VTE?: No VTE Risk Level:: Medical - moderate - high VTE Device Contraindication: N/A - Device Ordered VTE Drug Contraindication: N/A - Med Ordered
[2024-11-11] MEDS: Albuterol/Iprat 2.5/0.5MG 3 ML AMPUL.NEB INHALE ×3 (04:40→21:39)
[2024-11-11] MEDS: Aspirin 81 MG TAB.CHEW PO (04:47)
--- NOTE | 2024-11-11 06:59 | PC.NURSE ---
pt placed onto ekg monitor tech, offers no current complaints and is in no apparent distress. denies acute pain. neuros intact, call gustafson within reach. plan of care continues
--- NOTE | 2024-11-11 07:54 | PC.NURSE ---
PT worked with pt. Pt given meal tray and warm blanket.
[2024-11-11] MEDS: Budesonide 0.5 MG/2 ML AMPUL.NEB INHALE ×2 (07:56→21:39)
--- NOTE | 2024-11-11 08:15 | PM.EVENT ---
Event Note Date of Service: 11/11/24 Event Note: Patient is a 54-year-old female Mauritanian-speaking only with past medical history of GERD, nonalcoholic fatty liver disease, morbid obesity, asthma, rib fractures, chest lipoma with removal, degenerative joint disease, eczema presents with reports of dizziness and left facial and arm numbness with tingling. CTA negative for any acute findings. Neuro exam is within normal limits. Patient being admitted under observation for TIA. TIA/ Headache CTA of the head and neck, CT of the head negative for any acute findings including sinusitis ASA 81 mg daily Neurology following recommend MRI MRI pending LDL 95 Asthma/ active wheeze normal cxr Duoneb Budesoinde BID POX 100% on RA No indication for ABX or prednisone All viral studies negative DVT prophylaxis: Lovenox Time Spent With Patient Time: Total time managing care of this patient today ____ minutes.
[2024-11-11 08:27] LABS: Estimated Average Glucose 111 mg/dL; Hemoglobin A1C 119.3477 umol/L; Hemoglobin A1c % 5.5 % (<6.0); Total Hemoglobin (HGBA1C) 3286.2188 umol/L
[2024-11-11] MEDS: 0.9 % Sodium Chloride Flush 3 ML SYRINGE IVFLUSH (08:36)
[2024-11-11] MEDS: Enoxaparin Sodium 40 MG/0.4 ML SYRINGE SUBCUT (08:37)
--- NOTE | 2024-11-11 08:47 | PC.NURSE ---
MRI screening sheet filled out with assistance from conference interpreter Ralph and faxed to MRI.
--- NOTE | 2024-11-11 09:20 | PM.NEUROCN ---
History of Present Illness Data of Consult Service Date: 11/11/24 Primary Care Provider: Judy Galvan MD [facility] Reason for consult: Left facial and arm numbness and tingling and dizziness. This is a 54-year-old Greenlandic-speaking female past medical history of GERD, nonalcoholic fatty liver disease, morbid obesity, asthma, rib fractures, CPR recipient in [place] related to a chest mass, chest lipoma with removal, degenerative joint disease, and eczema , who presented to the ED c/o dizziness and left facial and arm numbness with tingling. Sh ecomplains of facial pressure and RENO but states the numbness and tingling resolved. No sinus symptoms. No fever , chills. To trauma. In ER her VSS.afebrile. Labs were normal. Neuro exam normal. CT brain and CTA performed was negative for any acute findings with no occlusive disease , stenosis or dissection.. [facility] Past Medical History Medical History Left chest thoracotomy scar GERD (gastroesophageal reflux disease) DJD (degenerative joint disease) Lipoma of lung History of COVID-19 Morbid obesity Hypovitaminosis D Asthma Family History Family History Mother Hypertension Diabetes Father Cancer Daughter No problems noted. Son Asthma Son Hypoglycemia Surgical History Surgical History Hx of total hysterectomy (~06/2024) History of lung surgery History of colonoscopy History of cholecystectomy History of bilateral tubal ligation History of Social History Social History Household Members: Children Alcohol intake: current Alcohol intake frequency: does not drink Patient Tobacco Use Status: Former Tobacco user Smoked in Last 30 Days: No Use of substances other than those prescribed or required for medical reasons: No Advance Directives: No Advance Directives Information Provided: No Do you have a plan to hurt others: No Plan Nutrition Risks: No Nutritional Risk Patient : No Current occupational status: employed 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 Sexual orientation: Straight/Heterosexual Gender identity: Female Travel History Ebola Risk: Travel/Contact With Anyone From Affected Area/s: No Has Patient Experienced Ebola Symptoms: No Meds Allergies Allergy/AdvReac Type Severity Reaction Status Date / Time No Known Allergies Allergy Verified 11/10/24 21:06 [No Known Allergies*] Active Medications: Current Medications Acetaminophen (Acetaminophen 325 Mg Tablet) 650 mg PO Q6H PRN PRN Reason: Pain, Mild 1-3,fever,headache Albuterol/Ipratropium (Albuterol/Iprat 2.5/0.5mg 3 Ml Ampul.Neb) 3 ml INHALE RQ4H WHILE AWAKE [facility] Last Admin: 11/11/24 07:56 Dose: 3 ml Aspirin (Aspirin 81 Mg Tab.Chew) 81 mg PO DAILY [facility] Budesonide (Budesonide 0.5 Mg/2 Ml Ampul.Neb) 0.5 mg INHALE RBID [facility] Last Admin: 11/11/24 07:56 Dose: 0.5 mg Calcium Carbonate (Calcium Carbonate 750 Mg Tab.Chew) 750 mg PO Q4H PRN PRN Reason: Heartburn Enoxaparin Sodium (Enoxaparin Sodium 40 Mg/0.4 Ml Syringe) 40 mg SUBCUT Q24H [facility] Last Admin: 11/11/24 08:37 Dose: 40 mg Magnesium Hydroxide (Milk Of Magnesia 30 Ml Oral.Susp) 30 ml PO DAILY PRN PRN Reason: Constipation Melatonin (Melatonin 3 Mg Tablet) 6 mg PO BEDTIME PRN PRN Reason: Insomnia Ondansetron HCl (Ondansetron Hcl 4 Mg/2 Ml Vial) 4 mg IVPUSH Q8H PRN PRN Reason: Nausea and Vomiting Polyethylene Glycol (Polyethylene Glycol 3350 17 Gm Powd.Pack) 17 gm PO DAILY PRN PRN Reason: Constipation Senna (Sennosides 8.6 Mg Tablet) 17.2 mg PO BEDTIME [facility] Sodium Chloride (0.9 % Sodium Chloride Flush 3 Ml Syringe) 3 ml IVFLUSH QSHIFT [facility] Last Admin: 11/11/24 08:36 Dose: 3 ml Home Medications ?Medication ?Instructions ?Recorded ?Confirmed ?Last Taken ?Type budesonide-formoterol HFA 80 2 puff inhalation 12/21/22 09/11/24 Unknown History mcg-4.5 mcg/actuation aerosol inhaler (Symbicort) albuterol sulfate 2.5 mg/3 mL mg inhalation TID PRN wheezing 08/16/23 09/11/24 Unknown History (0.083 %) solution for nebulization albuterol sulfate 90 mcg/actuation 2 puff inhalation Q4-6H PRN 08/16/23 09/11/24 05/07/24 07:00 History aerosol inhaler (Ventolin HFA) Wheezing fluticasone propionate 50 1 spray intranasal DAILY 02/29/24 09/11/24 Unknown History mcg/actuation nasal spray,suspension gabapentin 300 mg capsule mg PO .prn 03/06/24 09/11/24 Unknown History betamethasone valerate 0.1 % appl topical 09/05/24 09/11/24 Unknown History topical cream acetaminophen 500 mg tablet 500 mg PO Q12H PRN pain 11/11/24 Unknown History cyclobenzaprine 10 mg tablet 10 mg PO BEDTIME 11/11/24 Unknown History diclofenac sodium 1 % topical gel 1 ea topical BID pain 11/11/24 11/11/24 Unknown History Physical Exam Vital Signs: Vital Signs: Last Vital Signs Temp 98.6 F 11/11/24 05:49 Pulse 57 11/11/24 07:51 Resp 16 11/11/24 05:49 BP 112/68 11/11/24 07:51 Pulse Ox 96 11/11/24 07:51 O2 Del Method Room Air 11/11/24 05:49 BMI result Body Mass Index 45.7 Neuro: Other: Normal neuro exam Results Labs 11/10/24 21:20 11/10/24 21:20 Labs: Short CBC 11/10/24 Range/Units 21:20 WBC 8.2 (4.8-10.8) X10*3/uL Hgb 12.7 (12.0-16.0) g/dl Hct 37.2 (37.0-47.0) % Plt Count 218 (160-400) X10*3/uL BMP 11/10/24 21:20 Sodium 141 Potassium 3.9 Chloride 107 Carbon Dioxide 24 BUN 16 Creatinine 0.62 Calcium 8.8 D Liver Function 11/10/24 Range/Units 21:20 Total Bilirubin 0.2 (0.0-1.0) mg/dL AST 21 (5-31) U/L ALT 25 (0-31) U/L Alkaline Phosphatase 102 (39-117) U/L Albumin 4.0 (3.5-5.0) g/dL Assessment and Plan (1) Brain TIA: Status: Acute Transient left sided numbness and non specific dizziness. No stroke risk factors. Possible TIA. Recom. MRI brain to r/o small thalamic infarct or demyelinating disease Procedures Date of Service Date of Service: 11/11/24
--- NOTE | 2024-11-11 09:27 | PHA.MEDREC ---
Pharmacy Consult ? Medication Reconciliation Pharmacy has completed the medication reconciliation. Spoke to patient (via intepreter) and confirmed medication list.
--- NOTE | 2024-11-11 10:44 | MHC.CM.PN ---
Camila 11/11/24, Pt lives with her family, she does not have home health services or use DME. PCP is confirmed: Judy Galvan. Pt is able to arrange transport home at [place]. DCP: home, self care, CM to follow for DC needs.
[2024-11-11] MEDS: Ketorolac Tromethamine 15 MG/ML VIAL IVPUSH (19:22)
--- NOTE | 2024-11-11 21:29 | PC.NURSE ---
neb treatments requested from respiratory
[2024-11-11] MEDS: Sennosides 8.6 MG TABLET 17.2 MG PO (21:54)
[2024-11-12] VITALS (7 sets, daily range): BP systolic 117–134; BP diastolic 62–81; PULSE 55–74; RESP 14–18; TEMP 36.5–37.2; O2SAT 97–100; BMI 42.9
[2024-11-12] MEDS: Ketorolac Tromethamine 15 MG/ML VIAL IVPUSH ×2 (01:00→06:38)
[2024-11-12] MEDS: 0.9 % Sodium Chloride Flush 3 ML SYRINGE IVFLUSH ×2 (01:01→09:16)
--- NOTE | 2024-11-12 01:03 | PC.NURSE ---
Pt found sleeping in bed, wakes easily to voice, reports minimal pain to head after earlier dose of Toradol. Pt denies other pain/discomfort via medical staff specialist. Pt aware of plan to admit, awaiting a bed assignment at this time.
--- NOTE | 2024-11-12 07:32 | PM.DS ---
DS: Providers Provider Date of Service: 11/12/24 Date of admission: 11/11/24 03:58 Date of discharge: 11/12/24 Primary care physician: Judy Galvan MD Consults: 11/11/24 06:09 Consult to Neurology Routine Consulting Provider: [facility] Reason for consultation: TIA Has provider been notified: No DS: Diagnosis Discharge Diagnosis (1) Brain TIA: Status: Acute DS: Summary Hospital Course Hospital Course: History and physical as per admitting provider. Patient is a 54-year-old female New Zealander-speaking only with past medical history of GERD, nonalcoholic fatty liver disease, morbid obesity, asthma, rib fractures, CPR recipient in [place] related to a chest mass, chest lipoma with removal, degenerative joint disease, eczema presents with reports of dizziness and left facial and arm numbness with tingling yesterday. Pt continues to have facial pressure and RENO but states the numbness and tingling resolved yesterday. Sinuses are not tender with palpation. No nuchal rigiditiy on exam. VSS. pt afebrile. No leukocytosis. Neuro exam remains normal. CTA performed was negative for any acute findings. CT head also negative. Patient being admitted for observation for TIA, MRI of the brain, neurology consult and PT eval in the morning. Patient does have history of asthma and is currently mildly wheezy on exam. Patient denies any cough or. recent fever or chills. Patient's sats are 100% on room air. Patient does not use home O2. Viral studies all negative. Will obtain chest x-ray. Providing duo nebs and supportive care. 54-year-old woman treated for headache, bilateral arm tingling. Initial head CTA and neck negative for any acute findings, MRI showed possible migraine pattern but no stroke. Patient was started on aspirin 81 mg. LDL 95. No other further symptoms from patient. Did speak about many stressors in her life at this time including family members that she lives with. She was treated with Toradol while inpatient seemed to help symptoms. Patient will be sent home with as needed Fioricet and she can follow up with the primary care provider outpatient. She may also use [id number]-ppk-crcyvsm Tylenol or ibuprofen. Asthma. Normal chest x-ray. Treated with DuoNebs budesonide. Oxygen saturation 100% on room air. No indication for antibiotics or prednisone during hospital stay. Studies negative. MR/MR head/brain wo con IMPRESSION: No acute brain abnormality. 2 mm CSF equivalent signal, deep white matter, right cerebellum. Consider simple cyst. Nonspecific T2 FLAIR signal bifrontal lobes. This could be seen patients with migraines.. Patient can follow up with primary care provider regarding MRI results showing 2 mm possible simple cyst, her primary care provider may want her to have repeat imaging in 6 months. Time Attestation Discharge Coordination Time (in mins): 42 Quality: Safe Use of Opioids Does Pt have an Active Cancer Diagnosis on the Problem List?: No Quality: Stroke Does the patient have a stroke diagnosis?: No Physical Exam Vital Signs: Vital Signs: Last Vital Signs Temp 97.8 F 11/12/24 06:36 Pulse 65 11/12/24 06:36 Resp 14 11/12/24 06:36 BP 121/63 11/12/24 06:36 Pulse Ox 97 11/12/24 06:36 O2 Del Method Room Air 11/12/24 06:36 BMI result Body Mass Index 45.7 Appearing in no acute distress head is normocephalic atraumatic eyes pupils are PERRLA sclera is anicteric mouth throat mucous membranes are intact and moist neck is supple no lymphadenopathy, no JVD noted lung sounds are clear to auscultation heart regular rate rhythm, clear S1, S2 positive bowel sounds, abdomen is soft, nontender neuro patient is alert x3, no focal deficits DS: Data Data Completed and Pending Labs on day of discharge: Laboratory Results - last 24 hr 11/10/24 21:20 Estimat Average Glucose 111 Hemoglobin A1c % 5.5 Discharge Plan Discharge Anticipated Discharge Date/Time: 11/12/24 07:29 Patient Disposition: Home, Self-Care Discharge Diagnosis: Migraines headache Referrals: Judy Galvan MD [Primary Care Provider] - 1 Week Discharge Medications: New xpbguoqctf-rcxkxfhdykupv-wlhb 50-325-40 mg Tablet 1 tab PO Q4H PRN (Reason: Migraine Headache) Qty: 24 0RF Continued acetaminophen 500 mg tablet 500 mg PO Q12H PRN (Reason: pain) budesonide-formoterol [Symbicort] 80-4.5 mcg/actuation HFA aerosol inhaler 2 puff inhalation BID PRN (Reason: Wheezing) albuterol sulfate [Ventolin HFA] 90 mcg/actuation HFA aerosol inhaler 2 puff inhalation Q4H PRN (Reason: Wheezing) albuterol sulfate 2.5 mg /3 mL (0.083 %) solution for nebulization 2.5 mg inhalation TID PRN (Reason: wheezing) betamethasone valerate 0.1 % cream 1 appl topical BID cholecalciferol (vitamin D3) 50 mcg (2,000 unit) capsule 50 mcg PO DAILY Qty: 90 3RF Discharge Orders: Discharge Order (Routine); Ordered 11/12/24 Ordered By: Jaelyn Santana Diet: Advance to usual diet Activity on Discharge: As tolerated Stand Alone Forms: Patient Portal Discharge page Print Language: New Zealander Care Plan Goals: May take Fioricet as needed for migraine headache. You may also take [id number] Tylenol or ibuprofen Health Concerns: Migraine headache Plan of Treatment: Follow up with primary care provider as needed and for possible repeat head CT or MRI for 2 mm possible simple cyst in the future Take all medications as prescribed Assessment: See discharge summary
[2024-11-12] MEDS: Albuterol/Iprat 2.5/0.5MG 3 ML AMPUL.NEB INHALE (08:29)
[2024-11-12] MEDS: Budesonide 0.5 MG/2 ML AMPUL.NEB INHALE (08:29)
[2024-11-12] MEDS: Enoxaparin Sodium 40 MG/0.4 ML SYRINGE SUBCUT (09:11)
[2024-11-12] MEDS: Aspirin 81 MG TAB.CHEW PO (09:12)
--- NOTE | 2024-11-12 12:19 | MHC.CM.PN ---
Pt is medically cleared for discharge home self-care, pt will arrange her own transport home.
== END 2024-11-12 12:51 | disposition home or self-care (01) ==
LOC: HO.ED 11-11 01:54 → HO.EDOVER 11-11 04:19 → HO.IMC 11-12 06:56
PROVIDERS: Admitting Provider Nurse Practitioner Family; Emergency Provider Emergency Medicine; PCP Internal Medicine; Visit Provider Nurse Practitioner Acute Care
DX: G43.909 Migraine, unspecified, not intractable, without status migrainosus (principal); R42 Dizziness and giddiness; R20.2 Paresthesia of skin; R53.1 Weakness; J45.909 Unspecified asthma, uncomplicated; K76.0 Fatty (change of) liver, not elsewhere classified; K21.9 Gastro-esophageal reflux disease without esophagitis; Z79.899 Other long term (current) drug therapy; Z03.818 Encounter for observation for suspected exposure to other biological agents ruled out
CPT/HCPCS: 0241U; 36415; 70450; 70496; 70498; 70551; 71045; 80053; 80061; 83036; 85025; 93005; 94640; 96372; 96374; 96376; 97162; 99222; 99285; J1650; J1885; Q9967

== ENCOUNTER → 2024-11-10 21:14 | Outpatient (BNV) | payer MEDICAID, SELFPAY | PROVIDERS: Admitting Provider Nurse Practitioner Family; Emergency Provider Emergency Medicine; PCP Internal Medicine; Visit Provider Internal Medicine Cardiovascular Disease | DX: R42 Dizziness and giddiness (principal) | CPT/HCPCS: 93010 ==

== ENCOUNTER → 2024-11-10 21:55 | Outpatient (BNV) | payer MEDICAID, SELFPAY | PROVIDERS: Emergency Provider Emergency Medicine; PCP Internal Medicine; Visit Provider Radiology Diagnostic Radiology | DX: R51.9 Headache, unspecified (principal); R42 Dizziness and giddiness | CPT/HCPCS: 70450 ==

== ENCOUNTER → 2024-11-11 00:32 | Outpatient (BNV) | payer MEDICAID, SELFPAY | PROVIDERS: Emergency Provider Emergency Medicine; PCP Internal Medicine; Visit Provider Radiology Diagnostic Radiology | DX: R53.1 Weakness (principal); R20.2 Paresthesia of skin; R51.9 Headache, unspecified; R90.82 White matter disease, unspecified; R06.2 Wheezing | CPT/HCPCS: 70496; 70498; 70551; 71045 ==

== ENCOUNTER → 2024-11-11 03:58 | Outpatient (BNV) | payer MEDICAID, SELFPAY | PROVIDERS: Admitting Provider Nurse Practitioner Family; Emergency Provider Emergency Medicine; PCP Internal Medicine; Visit Provider Nurse Practitioner Family | DX: G45.9 Transient cerebral ischemic attack, unspecified (principal) | CPT/HCPCS: 99222; 99499 ==

== ENCOUNTER → 2024-11-11 03:58 | Outpatient (BNV) | payer MEDICAID, SELFPAY | PROVIDERS: Admitting Provider Nurse Practitioner Family; Emergency Provider Emergency Medicine; PCP Internal Medicine; Visit Provider Psychiatry & Neurology Neurology | DX: G45.9 Transient cerebral ischemic attack, unspecified (principal) | CPT/HCPCS: 99222 ==

== ENCOUNTER 2025-02-06 12:33 | Outpatient (REF) | payer MEDICAID, SELFPAY ==
--- NOTE | ~2025-02-06 | XR_ITS ---
EXAMINATION: XR FOOT, LEFT CLINICAL INFORMATION: left foot pain/plantar fasciitis, ro osteophytes COMPARISON: 12/26/2018. TECHNIQUE: AP, lateral, and oblique views of the left foot. FINDINGS: No fracture, dislocation, or suspicious bone abnormality. There is normal alignment. There is normal plantar arch. Joint spaces are preserved. There is a small plantar calcaneal spur. The soft tissues appear normal. XR/XR foot LT min 3V IMPRESSION: 1. No acute findings of the left foot. There is a small plantar calcaneal spur. Electronically signed by: Greg Rodriguez MD 02/06/2025 01:03 PM EDT
--- OUTSIDE RECORDS SUMMARY | 2025-02-06 12:35 | XMS_ITS | Clinical Summary ---
Author Organization [facility] ity Address [address] [place] [address] Care Team Providers Care Center Receptionist Name Role Phone Judy Galvan MD Primary Care Provider [phone] Surgical History Surgery Date Site/Laterality Comments TUBAL [...] ars (1 of 2 - PCV) 1989 Cervical Cancer Screening: P ap Smear 1991 Zoster Vaccines (1 of 2) 01/22/2020 Cholesterol Screening (Lipid Panel) 08/14/2023 Colorectal Cancer Screening: Colonoscopy 08/14/2023 HIV Screening 08/14/2023 Hepatitis C Screening 08/14/2023 Social Influencers of Health Screening 08/14/2023 COVID-19 Vaccine (1 - 2023-2 5 season) 2024 Depression Screening 07/16/2024 Influenza Vaccine (#1) 2025 HIB Vaccines Aged Out No longer [...] age to complete this topic Care Teams Center Receptionist Relationship Specialty Start Date End Date Judy Galvan MD [address] [place] [phone] PCP - General 11/28/22
--- OUTSIDE RECORDS SUMMARY | 2025-02-06 12:35 | XMS_ITS | Encounter Summary ---
Author Organization [email or web address] Address [address] [place] [address] [address] [place] [address] Care Team Providers Care Flame Hardening Machine Setter Name Role Phone Judy Galvan MD Primary Care Provider + Reason for Visit * Reason Onset Date Comments Appointment Request 01/22/2023 Encounter Details Date Type Department Care Team ([facility] st Contact Info) Description 01/22/2023 Telephone [facility] MEDICINE [address] [place], [place] [phone] Judy Galvan MD [address] [place], [place] [phone] Appointment Request Social History Tobacco Use Types [...] Miscellaneous Notes * Telephone Encounter - Abhilash Shenulises Montoya - 01/22/2023 10:12 AM EDT Tc from pt requesting a follow up appt with provider. Patient states provider advise a 6 week follow up on last visit on 12/14/2022 . Please contact pt at [phone] Tanzanian Speaker documented in this encounter Plan of Treatment Upcoming Encounters Date Type Department Care Team (Late st Contact Info) Description 05/27/2025 10:00 AM EST Office Visit [facility] OPTOMETRY [address] [place] [address] Liliya Sims, OD [address] [place], [place] [phone] documented as of this encounter Visit Diagnoses Not on filedocumented in this encounter Additional Health Concerns Assessment Noted Time PHQ-9 Depression Total Score: 10 023 3:27 PM EDT documented as of this encounter Care Teams Flame Hardening Machine Setter Relationship Specialty Start Date End Date Judy Galvan MD [address] [place] [address] PCP - General Family Medicine 07/22/18 Anya Curry Floral Design Teacher 08/29/23 11/27/23 documented as of this encounter
== END 2025-02-06 12:34 | disposition home or self-care (01) ==
LOC: HO.HHCX 12:33
PROVIDERS: Visit Provider Internal Medicine
DX: M72.2 Plantar fascial fibromatosis (principal)
CPT/HCPCS: 73630

== ENCOUNTER → 2025-02-06 12:34 | Outpatient (BNV) | payer MEDICAID, SELFPAY | PROVIDERS: Visit Provider Radiology Diagnostic Radiology | DX: M77.32 Calcaneal spur, left foot (principal) | CPT/HCPCS: 73630 ==

== ENCOUNTER 2025-02-10 12:06 | Outpatient (AMB) | payer MEDICAID, SELFPAY ==
--- NOTE | 2025-02-10 13:00 | A.OFFVIS_ITS ---
Intake Visit Reasons: Cerebellar Cyst Allergies No Known Allergies (No Known Allergies*) Allergy (Verified 11/10/24 21:06) HPI Comments Details: 55 years old woman who was suffering from headaches and associated symptoms. She was seen in October of 2024 at [facility] by Dr. Austin when she presented with complaints of right face and arm numbness and had multiple investigations done including CTA of brain, CTA of brain and neck, an MRI of bra in. MRI of brain revealed some findings prompting this consultation. She was here stating that she continues to have headaches and was having 3-4 headaches in a month but for last 2 weeks she was having almost daily headaches and there were severe. She did not have any cold or flu-like illness. There was no history of seizure disorder. [facility] Medical History (Updated 02/10/25 @ 13:13 by Pedro Hercules MD) Left chest thoracotomy scar GERD (gastroesophageal reflux disease) DJD (degenerative joint disease) Lipoma of lung History of COVID-19 Morbid obesity Hypovitaminosis D Asthma Surgical History Hx of total hysterectomy (~06/2024) History of lung surgery History of colonoscopy History of cholecystectomy History of bilateral tubal ligation History of Family History Mother Hypertension Diabetes Father Cancer Daughter No problems noted. 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 Physical Exam Neuro Other: Mental Status: Alert and oriented to person, place, and time. Normal attention. Normal spontaneous speech, fluency, and comprehension. No obvious issues with mood and memory. Affect is appropriate. Cranial Nerves: CN II: Visual santamaria full to confrontation, visual acuity intact. CN III, IV, : Pupils equal, round, reactive to light and accommodation. Extraocular movements are normal. CN V: Facial sensation is normal. CN VII: Facial movements symmetrical. CN VIII: Hearing intact to bedside conversation is normal. CN IX, X: Palate elevates symmetrically. CN XI: Shoulder shrug and head turn symmetrical. CN XII: Tongue midline without atrophy or fasciculations. Extrapyramidal: Full facial expressions and blinking. No rigidity. Movements are appropriate with no tremor or abnormality. Speech: Normal; no dysarthria or tremor. Assessment & Plan Assessment & Plan (1) Migraine equivalent syndrome: Comment: CT brain WO at [facility] in Oct 2024: WNL CTA brain and neck at [facility] in Oct 2024: [place] MRI brain WO at [facility] in Oct 2024: Minimal MVD, left frontal venous angioma Code(s): G43.109 - Migraine with aura, not intractable, without status migrainosus Category: Medical (2) Migraine with aura: Code(s): G43.109 - Migraine with aura, not intractable, without status migrainosus Category: Medical Qualifiers: Status migrainosus presence: without status migrainosus Intractability: not intractable Qualified Code(s): G43.109 - Migraine with aura, not intractable, without status migrainosus Plan Impression: 55 years old woman with symptom suggestive of migraine with aura and migraine equivalent syndrome causing right-sided numbness involving face and arm and headaches. She was admitted at [facility] in October of 2024 when she had multiple investigations including an MRI of brain, which revealed minor findings that would not significant and not contributing to her problems. Recommendations: 1. Reassurance and education about her condition 2. Topiramate 25 mg at night for migraine control Medications: New topiramate 25 mg orally one at night; 90 tabs 1RF Coding Level of Care Code Est Pt Level 4 (72186) Diagnoses Migraine equivalent syndrome G43.109 Migraine with aura and without status migrainosus, not intractable G43.109 Status migrainosus presence: without status migrainosus Intractability: not intractable
--- OUTSIDE RECORDS SUMMARY | 2025-02-10 13:02 | XMS_ITS | Clinical Summary ---
Author Organization [facility] ity Address [address] [place] [address] Care Team Providers Care Mirror Department Supervisor Name Role Phone Judy Galvan MD Primary Care Provider [phone] Surgical History Surgery Date Site/Laterality Comments TUBAL [...] age to complete this topic Care Teams Mirror Department Supervisor Relationship Specialty Start Date End Date Judy Galvan MD [address] [place] [phone] PCP - General 11/28/22
== END 2025-02-10 13:17 | disposition home or self-care (01) ==
LOC: HO.HSM 12:07
PROVIDERS: PCP Internal Medicine; Visit Provider Psychiatry & Neurology Neurology
DX: G43.109 Migraine with aura, not intractable, without status migrainosus (principal)
CPT/HCPCS: 99214

== ENCOUNTER → 2025-02-10 12:06 | Outpatient (BNVA) | payer MEDICAID, SELFPAY | PROVIDERS: PCP Internal Medicine; Visit Provider Psychiatry & Neurology Neurology | DX: Z71.2 Person consulting for explanation of examination or test findings (principal); G43.109 Migraine with aura, not intractable, without status migrainosus | CPT/HCPCS: 99212 ==

== ENCOUNTER 2025-03-12 12:51 | Outpatient (AMB) | payer MEDICAID, SELFPAY ==
--- NOTE | 2025-03-12 12:52 | MHC.OFFVIS ---
Vital Signs 03/12/25 12:52 Height 5 ft 2 in Intake Visit Reasons: 4-[address] weeks [address] VR per [address] Hercules Day Spa Manager Required: Yes Day Spa Manager Name: #[id number] Allergies No Known Allergies (No Known Allergies*) Allergy (Verified 03/12/25 12:55) Medication List - Last Reconciled 03/12/25 by Kristy Weller CNP acetaminophen 500 mg PO Q12H PRN albuterol sulfate 90 mcg/actuation (Ventolin HFA) 2 puffs inhalation Q4H PRN albuterol sulfate 2.5 mg inhalation TID PRN betamethasone valerate 0.1% 1 appl topical BID budesonide-formoterol 80-4.5 mcg/actuation (Symbicort) 2 puffs inhalation BID PRN pvrrbmezgp-vthfcfxbywjsd-xiud 50-325-40 mg 1 tab PO Q4H PRN cholecalciferol (vitamin D3) (Vitamin D3) 50 mcg PO DAILY topiramate 25 mg orally one at night; HPI Comments Details: 55-year-old woman who was suffering from headaches and associated symptoms. She was seen in 10/2024 at [facility] by Dr. Austin when she presented with complaints of right face and arm numbness and had multiple investigations done including CTA of brain, CTA of brain and neck, an MRI of brain. Headaches were happening 3-4x/month, but increased in frequency to almost daily in 01/2025. Headaches were better with topiramate. She had one headache in the last four weeks that was very brief. No episodes of right-sided numbness. No medication side effects. Sleep was okay. [facility] Medical History (Updated 03/12/25 @ 12:55 by Kristy Weller CNP) Left chest thoracotomy scar GERD (gastroesophageal reflux disease) DJD (degenerative joint disease) Lipoma of lung History of COVID-19 Morbid obesity Hypovitaminosis D Asthma Surgical History Hx of total hysterectomy (~06/2024) History of lung surgery History of colonoscopy History of cholecystectomy History of bilateral tubal ligation History of Family History Mother Hypertension Diabetes Father Cancer Daughter No problems noted. 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 Sexual orientation: Straight/Heterosexual Gender identity: Female Female Reproductive History Menstrual Age of Menarche: 9 Review of Systems Const Denies chills, Denies daytime sleepiness, Denies difficulty sleeping, Denies fatigue, Denies fever(s), Denies frequent falls, Reports headache(s), Denies increased appetite, Denies poor appetite, Denies snoring, Denies weakness, Denies weight gain and Denies weight loss Eyes Denies loss of vision ENT Denies vertigo, Denies dizziness and Reports headache(s) Card Denies chest pain at rest, Denies chest pain with activity, Denies syncope, Denies leg edema and Denies palpitations Resp Denies snoring GI Denies constipation, Denies heartburn, Denies diarrhea and Denies nausea Denies urinary frequency, Denies urinary incontinence and Denies urinary urgency Musc Denies abnormal gait, Denies numbness and Denies tingling Skin/Breast Denies dry skin and Denies rash Neuro Denies abnormal gait, Denies vertigo, Denies dizziness, Denies syncope, Denies frequent falls, Reports headache(s), Denies lack of coordination, Denies loss of vision, Denies memory loss, Denies numbness, Denies restless legs, Denies seizure-like activity, Denies tingling, Denies paresthesias, Denies tremor(s) and Denies weakness Psych Denies anxiety, Denies depression, Denies auditory hallucinations, Denies memory loss, Denies visual hallucinations and Denies suicidal ideation Endo Denies fatigue and Denies palpitations Physical Exam Const Other: General Appearance:? normal, in no acute distress. Skin:? no rashes, no significant birthmarks. Heart:? S1, S2 normal, no murmurs. Lungs:? clear anteriorly and posteriorly. Extremities:? no edema. Psych:? alert, oriented, cognitive function intact, cooperative with exam. Neuro Other: Mental Status:?Alert and oriented to person, place, and time. Normal attention. Normal spontaneous speech, fluency, and comprehension. No obvious issues with mood and memory. Affect is appropriate. Cranial Nerves:?Pupils are equal, round and reactive to light. External occular muscles are intact. Visual santamaria are full. Face is symmetrical. Facial sensations are normal. Tongue is midline. Palate elevates symmetrically. Shoulder shrugging is normal. Hearing to bedside conversation is normal. Sensory Exam:?....? Coordination:?No ataxia,?no titubation.? Gait Exam: Within normal limits. Extrapyramidal System:?No tremor, rigidity with normal facial expressions.? Pronator Drift:?Not present.? Involuntary Movements:?No tremors seen.? Speech:?Normal.? Results Reviewed Results Reviewed: [place] brain [place] [facility]: WNL CTA brain and neck [place] [facility] [place]: [place] MRI brain WO at [facility] [place] [place] 2024: Minimal MVD, left frontal venous angioma Assessment & Plan Assessment & Plan (1) Migraine with aura: Code(s): G43.109 - Migraine with aura, not intractable, without status migrainosus Category: Medical Qualifiers: Status migrainosus presence: without status migrainosus Intractability: not intractable Qualified Code(s): G43.109 - Migraine with aura, not intractable, without status migrainosus Plan: Continue topiramate 25mg 1 tablet at bedtime. (2) Migraine equivalent syndrome: Code(s): G43.109 - Migraine with aura, not intractable, without status migrainosus Category: Medical Plan . Medications: Changed From topiramate 25 mg orally one at night; 90 tabs 1RF To topiramate 25 mg PO BEDTIME 90 tabs 1RF 90 days Coding Level of Care Code Est Pt Level 4 (68490) Diagnoses Migraine with aura and without status migrainosus, not intractable G43.109 Status migrainosus presence: without status migrainosus Intractability: not intractable Migraine equivalent syndrome G43.109
--- OUTSIDE RECORDS SUMMARY | 2025-03-12 13:25 | XMS_ITS | Encounter Summary ---
Author Organization [employer] Address [address] [place] [address] [address] [place] [address] Care Team Providers Care Brush Trimming Machine Setter Name Role Phone Judy Galvan MD Primary Care Provider + Encounter Details Date Type Department Care Team (Latest Contact Info) Description 03/05/2019 Abstract [facility] CONVERSIONS Dental, Provider, DDS Social History Tobacco [...] Description 05/27/2025 10:00 AM EST Office Visit [facility] OPTOMETRY [address] [place] [address] Levi, Liilya, OD [address] [place] [address] documented as of this encounter Visit Diagnoses Not on filedocumented in this encounter Care Teams Brush Trimming Machine Setter Relationship Specialty Start Date End Date Judy Galvan MD [address] [place] [address] PCP - General Family Medicine 07/22/18 Anya Curry Customer Order Clerk 08/29/23 11/27/23 documented as of this encounter
--- OUTSIDE RECORDS SUMMARY | 2025-03-12 13:25 | XMS_ITS | Encounter Summary ---
Author Organization [employer] Address [address] [address] [place] [address] Care Team Providers Care Machine Heel Builder Name Role Phone Judy Galvan MD Primary Care Provider + Encounter Details Date Type Department Care Team (Late st Contact Info) Description 11/26/2023 Orders Only [facility] MED[facility] [address] [place] [address] Provider, MD Kirstin Social History Tobacco Use [...] Description 05/27/2025 10:00 AM EST Office Visit [facility] OPTOMETRY [address] [place] [address] Liliya Sims, OD [address] [place] [address] documented as of this encounter Procedures Procedure [...] documented as of this encounter Care Teams Machine Heel Builder Relationship Specialty Start Date End Date Judy Galvan MD [address] [place] [address] PCP - General Family Medicine 07/22/18 Anya Curry Shear Scrapman 08/29/23 11/27/23 documented as of this encounter
--- OUTSIDE RECORDS SUMMARY | 2025-03-12 13:25 | XMS_ITS | Encounter Summary ---
Author Organization [employer] Address [address] [facility] [address] [place] [address] Care Team Providers Care Online Marketing Director Name Role Phone Judy Galvan MD Primary Care Provider + Encounter Details Date Type Department Care Team (Late st Contact Info) Description 11/12/2024 Orders Only [facility] [address] [place], [place] [phone] Judy Galvan MD [address] [place], [place] [phone] Social History Tobacco Use Types Packs/Day Years [...] Description 05/27/2025 10:00 AM EST Office Visit [facility] OPTOMET[facility] [address] [place] [address] Levi, Liliya, OD [address] [place] [address] documented as of this encounter Visit Diagnoses Not on filedocumented in this encounter Additional Health Concerns Assessment Noted Time PHQ-9 Depression Total Score: 0 06/26/20 23 9:44 AM EST documented as of this encounter Care Teams Online Marketing Director Relationship Specialty Start Date End Date Judy Galvan MD [address] [place] [address] PCP - General Family Medicine 07/22/18 documented as of this encounter
--- OUTSIDE RECORDS SUMMARY | 2025-03-12 13:25 | XMS_ITS | Clinical Summary ---
Author Organization [employer] Address [address] [facility] 7[address] [place] [address] Care Team Providers Care Software Developer Mid Level Name Role Phone Judy Galvan MD Primary Care Provider + Allergies No known active allergies Medications Omeprazole 20 MG tablet delayed-releaseIn dications:PUD (peptic ulcer disease) Take 20 mg by mouth in the morning. 90 tablet 4 Active budesonide-formot hany (Symbicort) 80-4.5 MCG/ACT inhalerIndication s:Moderate persistent asthma without complication Inhale 2 puffs in the morning and at bedtime. Rinse mouth with water after use to reduce aftertaste and incidence of candidiasis. Do not swallow. 10.2 g 11 4 Active albuterol (2.5 MG/3ML) 0.083% nebulizer solution INHALE 1 AMPULE USING A NEBULIZER THREE TIMES DAILY NEEDED SHORTNESS OF BREATH OR FOR ASTHMA 90 mL 5 4 Active Acetaminophen Extra Strength 500 MG tabletIndications :Spasm of left trapezius muscle Take 1 tablet (500 mg) by mouth every 12 (twelve) hours if needed (pain). 120 tablet 5 Active cyclobenzaprine (Flexeril) 10 MG tablet Take 1 tablet (10 mg) by mouth at bedtime for 10 days. 10 tablet 5 Active D3 Super Strength 50 MCG (2000 UT) capsule Take 1 capsule by mouth Once per day. 5 Active butalbital-acetam inophen-caffeine 50-325-40 MG tablet Take 1 tablet by mouth every 4 (four) hours if needed for migraine. Active albuterol (Ventolin HFA) 108 (90 Base) MCG/ACT inhalerIndication s:Asthma, unspecified asthma severity, unspecified whether complicated, unspecified whether persistent INHALE 2 PUFFS BY MOUTH EVERY 4 TO 6 HOURS NEEDED 18 g 3 5 Active betamethasone, augmented, (Diprolene) 0.05 % ointmentIndicatio ns:Nummular dermatitis Apply topically 2 times daily. 30 g 5 Active Diclofenac Sodium 1 % gel Use bid to affected area 100 g 5 Active Active Problems Problem Noted Date Diagnosed Date Nummular dermatitis 02/06/2025 Assessment & Plan (02/06/2025 3:16 PM EDT): On hands and abdomen at times Continue betamethasone ointment as needed Follow-up with dermatology in 6 months or earlier as needed Plantar fasciitis of left foot 02/06/2025 Assessment & Plan (02/06/2025 3:19 PM EDT): Reassurance, advised to use diclofenac gel to affected area and supportive insoles for plantar fasciitis, example of those were shown to patient Order x-rays, if patient symptoms do not improve, she will call back I will refer to podiatry. Follow-up in 3 months Cerebellar cyst 11/18/2024 Assessment & Plan (02/06/2025 3:15 PM EDT): On MRI of the brain 11/11/2024, reassuring that it is probably benign but does need close follow-up. Has follow-up appointment with neurology in 2 weeks. Migraine without aura and wi thout status migrainosus, not intractable 11/18/2024 Assessment & Plan (11/18/2024 4:01 PM EDT): I advise to avoid migraine triggers like red wine, chocolate, cheese, strong perfumes C/w Fioricet PRN Spasm of left trapezius muscle 10/02/2024 Assessment [...] Resolved, s/p TH + BSO. Fu with [facility] oncology. Obtain report of surgical biopsy. Assessment & Plan (05/29/2024 1:51 PM EST): Seen by Dr. Neal xxx DISTRESSER in the past, she will have a hysterectomy on 06/20. Contusion of left chest wall 02/07/2024 Assessment & Plan (02/06/2025 3:13 PM EDT): Approximately 2 years ago, may have residual atelectasis Reminded to use a set respirometer and albuterol as needed cough. Order PFTs Recommended weight reduction and follow-up with me in 3 months Assessment & Plan (02/07/2024 1:06 PM EDT): [...] to diagnosis of EIN. Fu closely with DISTRESSER. Myalgia 03/02/2023 Well woman exam 03/02/2023 TMJ [...] for safety and will FU with me JESSICA Fatty liver disease, nonalcoholic 12/13/2022 Overview (03/31/2024): Liver US ) liver elastography on 03/27/24 ([facility]) showed measurements are consistent with a moderate [...] at least . She was referred to [facility]. Moderate persistent asthma without complication 07/22/2018 [...] albuterol PRN Obesity 07/22/2018 Assessment & Plan (02/06/2025 3:12 PM EDT): Discussed re weight reduction options including exercise, life style modifications, diet. Recommended to decrease soda and sugary beverage consumption, increase protein intake with meals (at least 1 portion of protein with each meal) to assist with satiety, increase dietary fiber, advised to follow the previously agreed on diet, with the weight reduction program, to have at least 3-5 small meals throughout the day and appropriate hydration Recommended at least 150 min/week of moderate intensity exercise. Will refer to dietitian, may consider medications. Assessment & Plan (10/02/2024 1:49 PM EDT): Discussed re weight reduction options including exercise, life style modifications, diet. Recommended to decrease soda and sugary beverage consumption, increase protein intake with meals (at least 1 portion of protein with each meal) to assist with satiety, increase dietary fiber Recommended at least 150 min/week of moderate intensity exercise. Pt will continue to fu with quality improvement engineer at [facility] weight management program and with provider regarding medication management. Assessment & Plan (05/29/2024 1:53 PM EST): Discussed re weight reduction options including exercise, life style modifications, diet and referral to document control specialist. Recommended to decrease soda and sugary beverage consumption, increase protein intake with meals (at least 1 portion of protein with each meal) to assist with satiety, increase dietary fiber Recommended at least 150 min/week of moderate intensity exercise. Fu weight management program at [facility]. Resolved Problems Problem Noted Date Diagnosed Date [...] Encounters Date Type Department Care Team Description 03/10/[address] [address] Judy Galvan MD Appointment Request 02/26/2025 Patient Outreach [address] [address] Judy Galvan MD Care Coordination (C3 -[facility] telephone call outreach) 02/24/2025 Patient Outreach [address] [address] Judy Galvan MD Care Management ([facility]- F/U call # 3) 02/13/2025 Patient Outreach [address] [address] Judy Galvan MD Care Management ([facility]3- F/U call # 2) 02/12/2025 Patient Outreach [address] [address] Judy Galvan MD Care Coordination (C3 CM- [facility] telephone call outreach) 02/06/2025 11:45 AM EDT Office Visit [address] [address] Judy Galvan MD Nummular dermatitis (Primary Dx); Plantar fasciitis of left foot; Class 3 severe obesity due to excess calories with serious comorbidity and body mass index (BMI) of 45.0 to 49.9 in adult; Cerebellar cyst; Contusion of left chest wall, subsequent encounter; LUQ pain; SOB (shortness of breath) 02/06/2025 Results Follow-Up [address] [address] Judy Galvan MD XR Foot 3+ Views Left 02/05/2025 Travel 02/04/[address] [address] Judy Galvan MD Chart Prep 01/29/2025 Patient Outreach [address] [address] Judy Galvan MD Pre-visit Planning (SDOH screening completed on 12/24/2024) 01/12/2025 Patient Outreach [address] [address] Judy Galvan MD Care Management ([facility]- F/U call # 1) 01/07/2025 Patient Outreach [address] [address] Judy Galvan MD 12/29/2024 Plan of Care Documentation [address] [address] 12/25/[address] [address] Judy Galvan MD referral question 12/25/2024 Patient Outreach [address] [address] Judy Galvan MD Care Management ([facility]- Initial assessment/enrollmen t) 12/24/2024 Patient Outreach [address] [address] Judy Galvan MD Care Coordination 12/23/[address] [address] Judy Galvan MD Appointment Request from Last 3 Months Immunizations Immunization Administration Dates Next Due Hep B, adult [...] Answer Date Recorded Patient Health Questionnaire-9 Score 6 12/25/2024 Patient Health Questionnaire-9 Score 6 12/25/2024 Last PHQ-9: Questionnaire Data Not on file 0 12/25/2024 Housing Stability Answer Date Recorded What is your housing situation today? I have housing today, but I am worried about losing housing in the future 12/24/[address] you li ve. Do you have problems with any of the following? None of the above 12/24/2024 Food Insecurity Answer Date Recorded Within the past 12 months, y ou worried that your food would run out before you got money to buy more: Sometimes True 2024 Within the past 12 months,th e food you bought just didn't last and you didn't have enough money to get more: Sometimes True 12/24/2024 Transportation Answer Date Recorded In the past 12 months, has l ack of transportation kept you from medical appts, meetings, work or from getting things needed for daily living? No 12/24/2024 Intimate Partner Violence Answer Date R ecorded Within the last year, have y ou been afraid of your partner or ex-partner? 2 12/29/2024 Within the last year, have y ou been humiliated or emotionally abused in other ways by your partner or ex-partner? 2 Within the last year, have y ou been kicked, hit, slapped, or otherwise physically hurt by your partner or ex-partner? 2 12/29/2024 Within the last year, have y ou been raped or forced to have any kind of sexual activity by your partner or ex-partner? 2 12/29/2024 Utilities Answer Date Recorded In the past 12 months, has t he electric, gas, oil or water company threatened to shut off services in your home? No 12/24/2024 Depression Answer Date Recorded Patient Health Questionnaire-2 Score 2 12/25/2024 Internet Access Answer Date Recorded Internet Access Q1 Yes 12/24/2024 Internet Access Q2 Not on file 12/24/2024 Comments Unknown Sex and Gender Information Value Date Recorded Sex Assigned at Female 05/15/2022 10:34 AM EDT Legal Sex Female 10:34 AM EDT Gender Identity Female 05/15/2022 10:34 AM EDT Sexual Orientation Straight 05/15/2022 10 :34 AM EDT Last Filed Vital Signs Vital Sign Reading Time Taken Comments Blood Pressure 128/76 02/06/2025 11:53 AM EDT Pulse 68 02/06/2025 11:53 AM EDT Temperature 36.4 C (97.6 F) 02/06/2025 11:53 AM EDT Respiratory Rate 18 02/06/2025 11:53 AM EDT Oxygen Saturation 99% 10/02/2024 12:26 PM EDT Inhaled Oxygen Concentration - - Weight 121 kg (266 lb) 02/06/2025 11:53 AM EDT Height 157.5 cm (5' 2 ) 02/06/2025 11:53 AM EDT Body Mass Index 48.65 02/06/2025 11:53 AM EDT Plan of Treatment Upcoming Encounters Date Type Department Care Team (Late st Contact Info) Description 05/27/2025 10:00 AM EST Office Visit [facility] [address] [place] [address] Levi, Liliya, OD [address] [place] [address] Health Maintenance Due Date Last Done Comments CT Colonography 1970 FIT DNA/Cologuard 1970 FIT 1970 FOBT 1970 HIV Screening 1970 Sigmoidoscopy 1970 Pneumococcal Vaccine: 50+ Years (1 of 2 - PCV) 1989 Zoster Vaccines (1 of 2) 01/22/2020 Hepatitis B Vaccines (2 of 3 - 19+ 3-dose series) 04/20/2021 03/23/2021 COVID-19 Vaccine (3 - 2023-2 5 season) 2024 11/06/2020, 10/05/2020 Mammogram 07/27/2024 07/27/2023, 04/02/2020, 07/30/2018 Influenza Vaccine (#1) 2025 , 05/26/2020, 07/22/2018 Cervical Cancer Screening 07/29/2025 HPV/Cotest 07/29/2025 07/29/2020 Pap Smear 07/29/2025 SDOH Screening 12/24/2025 12/24/2024 Depression Screening 12/25/2025 12/25/2024, 12/25/2024 Disability Screening 02/05/2026 02/05/2025 Alcohol/Substance Use Screening 02/06/2026 02/06/2025 Tobacco Screening 02/06/2026 02/06/2025 DTaP/Tdap/Td Vaccines (2 - T d or Tdap) 12/28/2028 12/28/2018, 12/26/2018 Lipid Panel 11/10/2029 11/10/2024, 05/15/2024, 02/02/2023 Colonoscopy 12/08/2030 12/08/2020 Colorectal Cancer Screening 12/08/2030 RSV Patients and Patients Aged 60 years or older (1 - 1-dose 75+ series) 2045 Hepatitis C Screening Completed 03/04/2021 HIB Vaccines Aged Out No longer eligi [...] Procedure Name Priority Date/Time Associated Diagnosis Comments XR FOOT 3+ VIEWS LEFT Routine 02/06/2025 11:55 AM EDT Plantar fasciitis of left foot LIPID PANEL, STANDARD Routine 11/10/2024 9:20 PM EDT BI MAMMOGRAM SCREENING TOMOSYNTHESIS BILATERAL Routine 07/27/2023 11:27 AM EST ZZZ HISTORICAL HEPATITIS C AB W/REFL TO HCV RNA, QN, PCR Routine 03/04/2021 10:50 AM EDT HM COLONOSCOPY Routine 12/08/2020 2:43 PM EDT ZZZ HISTORICAL HPV E6/E7 RFLX IRVING 16 18/45 Routine 07/29/2020 10:17 AM EST from Last 3 Months or Most Recently Relevant to Health Maintenance Results * XR Foot 3+ Views Left (02/06/2025 11:55 AM EDT) Anatomical Region Laterality Modality Lower Extremities, Foot Left Radiogra phic Imaging 02/06/2025 11:5 5 AM EDT Narrative 02/06/2025 1:[address] [facility] [address] [place] [address] XRay Report Signed Patient: Elza Bhardwaj MR#: [id number] : 1970 Acct:[id number] Age/Sex: 55 / F ADM Date: 02/06/25 Loc: HO.HHCX Attending Dr: Judy Galvan MD Ordering Physician: Judy Galvan MD Date of Service: 02/06/25 Procedure(s): XR foot LT min 3V Accession Number(s): [id number] cc: Judy Galvan MD EXAMINATION: XR FOOT, LEFT CLINICAL INFORMATION: left foot pain/plantar fasciitis, ro osteophytes COMPARISON: 12/26/2018. TECHNIQUE: AP, lateral, and oblique views of the left foot. FINDINGS: No fracture, dislocation, or suspicious bone abnormality. There is normal alignment. There is normal plantar arch. Joint spaces are preserved. There is a small plantar calcaneal spur. The soft tissues appear normal. XR/XR foot LT min 3V IMPRESSION: 1. No acute findings of the left foot. There is a small plantar calcaneal spur. Electronically signed by: Greg Rodriguez MD 02/06/2025 01:03 PM EDT Dictated By: Greg Rodriguez MD Signed By: <Electronically signed by Greg Rodriguez MD in OV> 02/06/25 1303 DD/ 1155 TD/TT: 02/06/25 1200 Labels Molder: Procedure Note Donotzakinterpreter, Image - 02/06/[address] [facility] [address] [place] [address] XRay Report Signed Patient: Marvin Bhardwaj#: [id number] : 1970Acct:[id number] Age/Sex: 55 / FADM Date: 02/06/25 Loc: HO.HHCX Attending Dr: Judy Galvan MD Ordering Physician: Judy Galvan MD Date of Service: 02/06/25 Procedure(s): XR foot LT min 3V Accession Number(s): [id number] cc: Judy Galvan MD EXAMINATION: XR FOOT, LEFT CLINICAL INFORMATION: left foot pain/plantar fasciitis, ro osteophytes COMPARISON: 12/26/2018. TECHNIQUE: AP, lateral, and oblique views of the left foot. FINDINGS: No fracture, dislocation, or suspicious bone abnormality. There is normal alignment. There is normal plantar arch. Joint spaces are preserved. There is a small plantar calcaneal spur. The soft tissues appear normal. XR/XR foot LT min 3V IMPRESSION: 1. No acute findings of the left foot. There is a small plantar calcaneal spur. Electronically signed by: Greg Rodriguez MD 02/06/2025 01:03 PM EDT Dictated By: Greg Rodriguez MD Signed By: <Electronically signed by Greg Rodriguez MD in OV> 02/06/25 1303 DD/ 1155 TD/TT: 02/06/25 1200 Labels Molder: Judy Galvan MD IMG XR PROCEDURES Edited Result - Final * (ABNORMAL) Lipid Panel, Standard (11/10/2024 9:20 PM EDT) Triglycerides 88 <150 mg/dL [facility] Comment:Desirable Triglyceri de: less than 150 mg/dLBorderline High Triglyceride 150-199 mg/dLHigh Triglyceride: 200-499 mg/dLVery High Triglyceride: greater than or equal to 5OO mg/dL Cholesterol 212(H) <200 mg/dL [facility] Comment:Desirable Cholestero l: less than 200 mg/dLBorderline High Cholesterol: 200-239 mg/dLHigh Cholesterol: greater than 239 mg/dL LDL Cholesterol Calculated 95 <100 mg/dL [facility] Comment:Desirable LDL: less than 100 mg/dLNear Optimal/Above Optimal LDL: 110- 129 mg/dLBorderline High LDL: 130-159 mg/dLHigh LDL: 160-189 mg/dLVery High LDL: greater than or equal to 190 mg/dL HDL Cholesterol 100 >40 mg/dL [facility] Comment:Desirable HDL: great er than 40 mg/dL Note: This HDL assay may give artificially low results in patients with liver disease. 11/10/2024 9:20 PM EDT 11/10/2024 9:22 PM EDT us Generic External Data Provider LAB BLOOD ORDERAB LES Final Result [facility] [address] [place] [phone] * BI Mammogram Screening Tomosynthesis Bilateral (07/27/2023 11:27 AM EST) Anatomical Region Laterality Modality Breast Bilateral Mammography 07/27/2023 11:2 7 AM EST Narrative 08/14/2023 4:56 PM EST [facility] [address] [place] [address] Mammography Report Signed Patient: Elza Bhardwaj MR#: [id number] : 1970 Acct:[id number] Age/Sex: 53 / F ADM Date: 07/27/23 Loc: HO.MAMMO Attending Dr: Judy Galvan MD Ordering Physician: Judy Galvan MD Results: 1Ne gative Date of Service: 07/27/23 Follow Up: 1 Year From Orig inal Mammogram Procedure(s): MM tomosynthesis screening BI Accession Number(s): [id number] cc: Judy Galvan MD EXAMINATION: MM SCREENING [...] in OV> 08/14/23 1652 DD/ 1127 TD/TT: Labels Molder: Procedure Note Donotuseinterpreter, Image - 08/14/2023 [facility] [address] [place], [place] [address] Mammography Report Signed Patient: Marvin Bhardwaj#: [id number] : 1970Acct:[id number] Age/Sex: 53 / FADM Date: 07/27/23 Loc: CAREN Attending Dr: Judy Galvan MD Ordering Physician: Judy Galvan MDResults: 1Ne gative Date of Service: 07/27/23Follow Up: 1 Year From Orig inal Mammogram Procedure(s): MM tomosynthesis screening BI Accession Number(s): [id number] cc: Judy Galvan MD EXAMINATION: MM SCREENING [...] in OV> 08/14/23 1652 DD/ 1127 TD/TT: Labels Molder: us Judy Galvan MD IMG BI PROCEDURES Final Result * HEPATITIS C AB W/REFL TO HCV RNA, QN, PCR (03/04/2021 10:50 AM EDT) HEPATITIS C ANTIBODY NON-REACT GIULIANO NON-REACT GIULIANO [facility] INDEX 0.03 <1.00 [facility] Comment: HCV antibody was non-reactive. There is no laboratory evidence of HCV infection. In most cases, no further action is required. However, if recent HCV exposure is suspected, a test for HCV RNA (test code 89814) is suggested. For additional information please refer to http://education.[employer].Plan[employer]ige/faq/NTH07n4 (This link is being provided for informational/ educational purposes only.) 03/04/2021 10:5 0 AM EDT us Saran Elise MD HISTORICAL/NON ORDERABLE LAB S Final Result [facility] [address] [place] [address], * Hm Colonoscopy (12/08/2020 2:43 PM EDT) Historical Provider HEALTH MAINTENANCE Final Result * HPV E6/E7 RFLX IRVING 16 18/45 (07/29/2020 10:17 AM EST) HPV 16 RNA [facility] HPV 18/45 RNA [facility] HPV E6 E7 ADD [facility] HPV mRNA E6/E7 rflx Not Detected Not Detected [facility] Comment: This test was performed using the APTIMA HPV Assay ([employer] This assay detects E6/E7 viral messenger RNA (mRNA) from 14 high-risk HPV types (16,18,31,33,35,39,45,51,52,56,58,59,66,68). The analytical performance characteristics of this assay have been determined by [employer]. The modifications have not been cleared or approved by the FDA. This assay has been validated pursuant to the CLIA regulations and is used for clinical purposes. THIS TEST WAS PERFORMED AT: [facility] [address] [place] [address] [address]LO[address],[place] [address] AVIS PARKER MD 07/29/2020 10:1 7 AM EST Juan Jose Gill MD HISTORICAL/NON ORDERABLE LABS Fi nal Result [facility] [address] from Last 3 Months or Most Recently Relevant to Health Maintenance Insurance [facility] C3 Care Teams Software Developer Mid Level Relationship Specialty Start Date End Date Judy Galvan MD [address] [place] [phone] PCP - General Family Medicine 07/22/18
--- OUTSIDE RECORDS SUMMARY | 2025-03-12 13:25 | XMS_ITS | Encounter Summary ---
Author Organization [employer] Address [address] [facility] [address] [place] [address] Care Team Providers Care Filing And Polishing Supervisor Name Role Phone Judy Galvan MD Primary Care Provider + Reason for Visit * Reason Onset Date Comments Appointment Request 12/23/2024 Encounter Details Date Type Department Care Team ([facility] st Contact Info) Description 12/23/2024 Telephone [facility] [address] [place], [place] [phone] Judy Galvan MD [address] [place], [place] [phone] Appointment Request Social History Tobacco Use Types [...] things needed for daily living? No 12/24/2024 Utilities Answer Date Recorded In the past [...] AM EDT documented as of this encounter Functional Status * Over the past 2 weeks, how often have you been bothered by any of the following problems? Question Answer Date of Assessment Author Patient Health Questionnaire -2 Score 2 12/25/2024 10:31 AM Ranjit Benítez RN * Little interest or pleasure in doing things Answer Date of Assessment Author Several days 12/25/2024 10:31 AM Ranjit Benítez RN * Feeling down, depressed, or hopeless Answer Date of Assessment Author Several days 12/25/2024 10:31 AM Ranjit Benítez RN * Trouble falling or staying asleep, or sleeping too much Answer Date of Assessment Author Several days 12/25/2024 10:31 AM Ranjit Benítez RN * Feeling tired or having little energy Answer Date of Assessment Author Several days 12/25/2024 10:31 AM Ranjit Benítez RN * Poor appetite or overeating Answer Date of Assessment Author Several days 12/25/2024 10:31 AM Ranjit Benítez RN * Feeling bad about yourself - or that you are a failure or have let yourself or your family down Answer Date of Assessment Author Several days 12/25/2024 10:31 AM Ranjit Benítez RN * Trouble concentrating on things, such as reading the newspaper or watching television Answer Date of Assessment Author Not at all 12/25/2024 10:31 AM Ranjit Benítez RN * Moving or speaking so slowly that other people could have noticed? Or the opposite - being so fidgety or restless that you have been moving around a lot more than usual. Answer Date of Assessment Author Not at all 12/25/2024 10:31 AM Ranjit Benítez RN * Thoughts that you would be better off or hurting yourself in some way Answer Date of Assessment Author Not at all 12/25/2024 10:31 AM Ranjit Benítez RN * Patient Health Questionnaire-9 Score Answer Date of Assessment Author 6 12/25/2024 10:31 AM Ranjit Benítez RN * How difficult have these problems made it for you to do your work, take care of things at home, or get along with other people? Answer Date of Assessment Author Not difficult at all 12/25/2024 10:31 AM Ranjit Stallworth RN * Over the last 2 weeks, how often have you been bothered by any of the following problems? Question Answer Date of Assessment Author Feeling nervous, anxious, or on edge 1 12/25/2024 10:36 AM Ranjit Benítez RN Not being able to stop or co ntrol worrying 1 12/25/2024 10:36 AM Ranjit Benítez RN Worrying too much about diff erent things 1 12/25/2024 10:36 AM Ranjit Benítez RN Trouble relaxing 0 12/25/2024 10:36 AM Ranjit Benítez RN Being so restless that it is hard to sit still 0 12/25/2024 10:36 AM Ranjit Benítez RN Becoming easily annoyed or irritable 1 12/25/2024 10:36 AM Ranjit Benítez RN Feeling afraid as if somethi ng awful might happen 1 12/25/2024 10:36 AM Ranjit Benítez RN LING-7 Total Score 5 12/25/2024 10:36 AM Ranjit Benítez RN documented as of this encounter Miscellaneous Notes * Telephone Encounter - Nina Farshad Rae - 12/23/2024 3:57 PM EDT Tc from pt stating she been waiting for a call regarding an appt for Claim Administrator Contact pt at [phone] documented in this encounter Plan of Treatment Upcoming Encounters Date Type Department Care Team (Late st Contact Info) Description 05/27/2025 10:00 AM EST Office Visit [facility] [address] [place] [address] LeviLiliya null, OD [address] [place] [address] documented as of this encounter Visit Diagnoses Not on filedocumented in this encounter Additional Health Concerns Assessment Noted Time PHQ-9 Depression Total Score: 7 11/19/19 25 1:52 PM EDT documented as of this encounter Care Teams Filing And Polishing Supervisor Relationship Specialty Start Date End Date Judy Galvan MD [address] [place], [place] [phone] PCP - General Family Medicine 07/22/18 documented as of this encounter
--- OUTSIDE RECORDS SUMMARY | 2025-03-12 13:25 | XMS_ITS | Encounter Summary ---
Author Organization [employer] Address [address] [facility] 7t [place] [address] Care Team Providers Care Copra Processor Name Role Phone Judy Galvan MD Primary Care Provider + Reason for Visit * Reason Comments Med Refill Encounter Details Date Type Department Care Team ([facility] st Contact Info) Description 08/10/2023 Refill [facility] MEDICINE [address] [place], [place] [phone] Judy Galvan MD 230 [place], [place] [phone] PUD (peptic ulcer disease) Social History Tobacco [...] Description 05/27/2025 10:00 AM EST Office Visit [facility] OPTOMETRY [address] [place] [address] Liliya Sims, OD 230 [place] [address] documented as of this encounter Visit Diagnoses Diagnosis PUD (peptic ulcer disease) Peptic ulcer, unspecified site, unspecified as acute or chronic, without mention of hemorrhage, perforation, or obstruction documented in this encounter Additional Health Concerns Assessment Noted Time PHQ-9 Depression Total Score: 0 06/26/20 23 9:44 AM EST documented as of this encounter Care Teams Copra Processor Relationship Specialty Start Date End Date Judy Galvan MD 230 [place] [address] PCP - General Family Medicine 07/22/18 Anya Curry Tip Length Checker 08/29/23 11/27/23 documented as of this encounter
--- OUTSIDE RECORDS SUMMARY | 2025-03-12 13:25 | XMS_ITS | Encounter Summary ---
Author Organization [employer] Address 75 [facility] 7 [place] [address] Care Team Providers Care Air Purifier Servicer Name Role Phone Judy Galvan MD Primary Care Provider + Reason for Visit * Reason Onset Date Comments Appointment Request 03/10/2025 Encounter Details Date Type Department Care Team ([facility] st Contact Info) Description 03/10/2025 Telephone [facility] MEDICINE 230 [place], [place] [phone] Judy Galvan MD 230 [place], [place] [phone] Appointment Request Social History Tobacco Use Types [...] encounter Miscellaneous Notes * Telephone Encounter - Moises Méndez - 03/10/2025 1:13 PM EDT TC from pt wanting to schedule nutrition apptmnt documented in this encounter Plan of Treatment Upcoming Encounters Date Type Department Care Team (Late st Contact Info) Description 05/27/2025 10:00 AM EST Office Visit [facility] OPTOMETRY [address] [place], [place] [phone] Levi, Liliya, OD [address] [place] [address] documented as of this encounter Visit Diagnoses Not on filedocumented in this encounter Additional Health Concerns Assessment Noted Time PHQ-9 Depression Total Score: 6 12/26/19 25 10:31 AM EDT documented as of this encounter Care Teams Air Purifier Servicer Relationship Specialty Start Date End Date Judy Galvan MD 230 [place] [address] PCP - General Family Medicine 07/22/18 documented as of this encounter
--- OUTSIDE RECORDS SUMMARY | 2025-03-12 13:25 | XMS_ITS ---
Author Organization [employer] Address [address] [place] [address] 7 [place] [address] Care Team Providers Care Cashier Wrapper Name Role Phone Judy Galvan MD Primary Care Provider + CM Complex Status:Enrolled (Active) Start date:11/11/2024 Enrollment date:12/25/2024 Enrollment reason:ADT Feed Overview ED- Pt went to [facility] ED on 11/10/24. Case Team Name Relationship Phone Ranjit Stallings RN(Responsible Staff) Registered Elsi bar [phone] Continued Care and Services Coordination
--- OUTSIDE RECORDS SUMMARY | 2025-03-12 13:25 | XMS_ITS | Encounter Summary ---
Author Organization [employer] Address 75 [facility] 7t [place] [address] Care Team Providers Care Tissue Specialist Name Role Phone Judy Galvan MD Primary Care Provider + Encounter Details Date Type Department Care Team (Late st Contact Info) Description 08/04/2022 Orders Only [facility] MED & PEDS [address] [place] [address] Yasmin Garcia LPN Social History Tobacco Use [...] Description 05/27/2025 10:00 AM EST Office Visit [facility] OPTOMETRY [address] [place] [address] Levi, Liliya, OD 230 [place] [address] documented as of this encounter Visit Diagnoses Not on filedocumented in this encounter Care Teams Tissue Specialist Relationship Specialty Start Date End Date Judy Galvan MD 230 [place] [address] PCP - General Family Medicine 07/22/18 Anya Curry Generator Worker 08/29/23 11/27/23 documented as of this encounter
--- OUTSIDE RECORDS SUMMARY | 2025-03-12 13:25 | XMS_ITS ---
Author Organization [employer] Address [address] [place] [address] 7 [place] [address] Care Team Providers Care Security Compliance Specialist Name Role Phone Judy Galvan MD Primary Care Provider + CHW Complex Status:Enrolled (Active) Start date:11/11/2024 Enrollment date:12/24/2024 Enrollment reason:ADT Feed Overview ED- Pt went [place] [facility] on 11/10/24. Case Team Name Relationship Phone Iliana Rae(Responsible Staff) Continued Care and Services Coordination
--- OUTSIDE RECORDS SUMMARY | 2025-03-12 13:25 | XMS_ITS | Encounter Summary ---
Author Organization [employer] Address 75 [facility] 7t [place] [address] Care Team Providers Care Stonemason Name Role Phone Judy Galvan MD Primary Care Provider + Encounter Details Date Type Department Care Team ([facility] Contact Info) Description 01/02/2023 Abstract [facility] MEDICINE 230 [place] [address] Judy Galvan MD [address] [place] [address] Social History Tobacco Use Types Packs/Day Years [...] Department Care Team (Late Contact Info) Description 05/27/2025 10:00 AM EST Office Visit [facility] OPTOMETRY [address] [place] [address] Liliya Sims, OD 230 [place] [address] documented as of this encounter Visit Diagnoses Not on filedocumented in this encounter Additional Health Concerns Assessment Noted Time PHQ-9 Depression Total Score: 10 023 3:27 PM EDT documented as of this encounter Care Teams Stonemason Relationship Specialty Start Date End Date Judy Galvan MD [address] [place] [address] PCP - General Family Medicine 07/22/18 Anya Curry Loop Tacker 08/29/23 11/27/23 documented as of this encounter
--- OUTSIDE RECORDS SUMMARY | 2025-03-12 13:25 | XMS_ITS | Encounter Summary ---
Author Organization [employer] Address 75 [facility] 7t [place] [address] Care Team Providers Care Barrel Polisher Inside Name Role Phone Judy Galvan MD Primary Care Provider + Encounter Details Date Type Department Care Team ([facility] st Contact Info) Description 02/06/2025 Results Follow-Up [facility] MEDICINE [address] [place], [place] [phone] Judy Galvan MD 230 [place], [place] [phone] XR Foot 3+ Views Left Social History Tobacco Use Types Packs/Day Years [...] Description 05/27/2025 10:00 AM EST Office Visit [facility] OPTOMETRY [address] [place] [address] Liliya Sims, OD 230 [place] [address] documented as of this encounter Visit Diagnoses Not on filedocumented in this encounter Additional Health Concerns Assessment Noted Time PHQ-9 Depression Total Score: 6 12/26/19 25 10:31 AM EDT documented as of this encounter Care Teams Barrel Polisher Inside Relationship Specialty Start Date End Date Judy Galvan MD 230 [place] [address] PCP - General Family Medicine 07/22/18 documented as of this encounter
--- OUTSIDE RECORDS SUMMARY | 2025-03-12 13:25 | XMS_ITS | Encounter Summary ---
Author Organization [employer] Address 75 [facility] 7t [place] [address] Care Team Providers Care Final Touch Up Painter Name Role Phone Judy Galvan MD Primary Care Provider + Reason for Visit * Reason Comments Med Refill Encounter Details Date Type Department Care Team ([facility] st Contact Info) Description 11/29/2024 Refill [facility] MEDICINE 230 [place], [place] [phone] Judy Galvan MD [address] [place], [place] [phone] Social History Tobacco Use Types Packs/Day Years Used Date Smoking Tobacco: Never Passive Smoke Exposure: Never Smokeless Tobacco: Never Alcohol Use Standard Drinks/Week Comments Not Currently 0 (1 standard drink = 0.6 oz pur e alcohol) oca Depression Answer Date Recorded Patient Health Questionnaire-9 Score 7 11/18/2024 Patient Health Questionnaire-9 Score 7 11/18/2024 Last PHQ-9: Questionnaire Data Not on file 0 11/18/2024 Housing Stability Answer Date Recorded What is [...] Date Recorded Patient Health Questionnaire-2 Score 2 11/18/2024 Comments Unknown Sex and Gender Information Value [...] EST Office Visit [facility] OPTOMETRY [address] [place] [address] Levi, Liliya, OD 230 [place] [address] documented as of this encounter Visit Diagnoses Not on filedocumented in this encounter Additional Health Concerns Assessment Noted Time PHQ-9 Depression Total Score: 7 11/19/19 25 1:52 PM EDT documented as of this encounter Care Teams Final Touch Up Painter Relationship Specialty Start Date End Date Judy Galvan MD [address] [place] [address] PCP - General Family Medicine 07/22/18 documented as of this encounter
--- OUTSIDE RECORDS SUMMARY | 2025-03-12 13:25 | XMS_ITS | Encounter Summary ---
Author Organization [employer] Address 75 [facility] 7t [place] [address] Care Team Providers Care Crystal Growing Technician Name Role Phone Judy Galvan MD Primary Care Provider + Reason for Visit * Reason Onset Date Comments referral question 12/25/2024 Encounter Details Date Type Department Care Team ([facility] st Contact Info) Description 12/25/2024 Telephone [facility] MEDICINE 230 [place], [place] [phone] Judy Galvan MD 230 [place], [place] [phone] referral question Social History Tobacco Use Types Packs/Day Years [...] Questionnaire -2 Score 2 12/25/2024 10:31 AM EDT Ranjit Stallings RN * Little interest or pleasure in doing things Answer Date of Assessment Author Several days 12/25/2024 10:31 AM KENYONT Ranjit Stallings RN * Feeling down, depressed, or hopeless Answer Date of Assessment Author Several days 12/25/2024 10:31 AM KENYONT Ranjit Stallings, MAYLIN * Trouble falling or staying asleep, or sleeping too much Answer Date of Assessment Author Several days 12/25/2024 10:31 AM EDT Ranjit Stallings RN * Feeling tired or having little [...] RN Trouble relaxing 0 12/25/2024 10:36 AM EDT Ranjit Stallings RN Being so restless that it is hard to sit still 0 12/25/2024 10:36 AM EDT Ranjit Stallings RN Becoming easily annoyed or irritable 1 12/25/2024 10:36 AM EDT Ranjit Stallings RN Feeling afraid as if somethi ng awful might happen 1 12/25/2024 10:36 AM EDT Ranjit Stallings RN LING-7 Total Score 5 12/25/2024 10:36 AM EDT Ranjit Stallings RN documented as of this encounter Miscellaneous Notes * Telephone Encounter - Delma Pope RN - 12/26/2024 9:30 AM EDT TC placed to [phone] to inquire on what is needed for referral however they report pt. Is not in their system at all and referral was not received. Please resend, thank you! * Telephone Encounter - Nina Rae - 12/25/2024 3:34 PM EDT Tc from pt stating she was advised to contact us and let us know that PCP has to do the fist appt with the neurologist specialist. Referral is it active documented in this encounter Plan of Treatment Upcoming Encounters Date Type Department Care Team (Late st Contact Info) Description 05/27/2025 10:00 AM EST Office Visit [facility] OPTOMETRY [address] [place] [address] Levi, Liliya, OD [address] [place] [address] documented as of this encounter Visit Diagnoses Not on filedocumented in this encounter Additional Health Concerns Assessment Noted Time PHQ-9 Depression Total Score: 6 12/26/19 25 10:31 AM EDT documented as of this encounter Care Teams Crystal Growing Technician Relationship Specialty Start Date End Date Judy Galvan MD [address] [place] [address] PCP - General Family Medicine 07/22/18 documented as of this encounter
--- OUTSIDE RECORDS SUMMARY | 2025-03-12 13:25 | XMS_ITS | Encounter Summary ---
Author Organization [employer] Address [address] [place] [address] 7 [place] [address] Care Team Providers Care Manager Retail Sales Name Role Phone Judy Galvan MD Primary Care Provider + Reason for Visit * Reason Onset Date Comments Appointment Request 01/22/2023 Encounter Details Date Type Department Care Team ([facility] st Contact Info) Description 01/22/2023 Telephone [facility] MEDICINE [address] [place], [place] [phone] Judy Galvan MD 230 [place], [place] [phone] Appointment Request Social History Tobacco Use Types [...] on 12/14/2022 . Please contact pt at [phone] Albanian Speaker documented in this encounter Plan of Treatment Upcoming Encounters Date Type Department Care Team (Late st Contact Info) Description 05/27/2025 10:00 AM EST Office Visit [facility] OPTOMETRY [address] [place] [address] Liliya Sims, OD 230 [place], [place] [phone] documented as of this encounter Visit Diagnoses Not on filedocumented in this encounter Additional Health Concerns Assessment Noted Time PHQ-9 Depression Total Score: 10 023 3:27 PM EDT documented as of this encounter Care Teams Manager Retail Sales Relationship Specialty Start Date End Date Judy Galvan MD 230 [place] [address] PCP - General Family Medicine 07/22/18 Anya Curry Building Attendant 08/29/23 11/27/23 documented as of this encounter
--- OUTSIDE RECORDS SUMMARY | 2025-03-12 13:25 | XMS_ITS | Clinical Summary ---
Author Organization [facility] ity Address [address] [place] [address] Care Team Providers Care Closing Manager Name Role Phone Judy Galvan MD Primary Care Provider +[phone] Surgical History Surgery Date Site/Laterality Comments TUBAL [...] age to complete this topic Care Teams Closing Manager Relationship Specialty Start Date End Date Judy Galvan MD [address] [place] [phone] PCP - General 11/28/22
--- OUTSIDE RECORDS SUMMARY | 2025-03-12 13:25 | XMS_ITS | Encounter Summary ---
Author Organization [employer] Address 75 [facility] 7t [place] [address] Care Team Providers Care Field Technical Assistant Name Role Phone Judy Galvan MD Primary Care Provider + Reason for Visit * Reason Comments Med Refill Encounter Details Date Type Department Care Team ([facility] st Contact Info) Description 08/17/2023 Refill [facility] MEDICINE 230 [place], [place] [phone] Judy Galvan MD [address] [place], [place] [phone] Asthma, unspecified asthma severity, unspecified whether complicated, [...] 10:00 AM EST Office Visit [facility] OPTOMETRY [address] [place] [address] Liliya Sims, OD [address] [place] [address] documented as of this encounter Visit Diagnoses Diagnosis Asthma, unspecified asthma severity, unspecified whether complicated, unspecified whether persistent documented in this encounter Additional Health Concerns Assessment Noted Time PHQ-9 Depression Total Score: 0 06/26/20 23 9:44 AM EST documented as of this encounter Care Teams Field Technical Assistant Relationship Specialty Start Date End Date Judy Galvan MD [address] [place] [address] PCP - General Family Medicine 07/22/18 Anya Curry Solar Energy Advisor 08/29/23 11/27/23 documented as of this encounter
== END 2025-03-12 13:06 | disposition home or self-care (01) ==
LOC: HO.HSM 12:51
PROVIDERS: PCP Internal Medicine; Visit Provider Registered Nurse
DX: G43.109 Migraine with aura, not intractable, without status migrainosus (principal)
CPT/HCPCS: 99214

== ENCOUNTER → 2025-03-12 12:51 | Outpatient (BNVA) | payer MEDICAID, SELFPAY | PROVIDERS: PCP Internal Medicine; Visit Provider Registered Nurse | DX: G43.109 Migraine with aura, not intractable, without status migrainosus (principal) | CPT/HCPCS: 99212 ==

== ENCOUNTER 2025-03-24 11:59 | Outpatient (REF) | payer MEDICAID, SELFPAY ==
[2025-03-24 13:22] LABS: Alanine Aminotransferase 43 U/L (0-31); Albumin Level 4.3 g/dL (3.5-5.0); Alkaline Phosphatase 97 U/L (39-117); Aspartate Amino Transferase 30 U/L (5-31); Total Protein 7.0 g/dL (6.5-8.0)
--- OUTSIDE RECORDS SUMMARY | 2025-03-24 14:31 | XMS_ITS | Encounter Summary ---
Author Organization [employer] Address 75 [facility] 7t [place] [address] Care Team Providers Care Back Shoe Worker Name Role Phone Judy Galvan MD Primary Care Provider + Reason for Visit * Reason Comments Med Refill Encounter Details Date Type Department Care Team ([facility] st Contact Info) Description 08/17/2023 Refill [facility] MEDICINE [address] [place], [place] [phone] Judy Galvan MD [address] [place], [place] [phone] Asthma, unspecified asthma severity, unspecified whether complicated, [...] Care Team (Late st Contact Info) Description 04/14/2025 1:00 PM EDT Nutrition [facility] DIABETES/NUTRITION [address] [place] [address] [place] [address] 05/27/2025 10:00 AM EST Office Visit [facility] OPTOMETRY [address] [place], [place] [phone] Liliya Sims, FLAQUITA 230 [place] [address] documented as of this encounter Visit Diagnoses Diagnosis Asthma, unspecified asthma severity, unspecified whether complicated, unspecified whether persistent documented in this encounter Additional Health Concerns Assessment Noted Time PHQ-9 Depression Total Score: 0 06/26/20 23 9:44 AM EST documented as of this encounter Care Teams Back Shoe Worker Relationship Specialty Start Date End Date Judy Galvan MD [address] [place] [address] PCP - General Family Medicine 07/22/18 Anya Curry Test Preparation Tutor 08/29/23 11/27/23 documented as of this encounter
--- OUTSIDE RECORDS SUMMARY | 2025-03-24 14:31 | XMS_ITS ---
Author Organization [employer] Address [address] [place] [address] 7 [place] [address] Care Team Providers Care Patient Accounts Clerk Name Role Phone Judy Galvan MD Primary Care Provider + CHW Complex Status:Enrolled (Active) Start date:11/11/2024 Enrollment date:12/24/2024 Enrollment reason:ADT Feed Overview ED- Pt went to [facility] ED on 11/10/24. Case Team Name Relationship Phone Iliana Rae(Responsible Staff) Continued Care and Services Coordination
--- OUTSIDE RECORDS SUMMARY | 2025-03-24 14:31 | XMS_ITS | Encounter Summary ---
Author Organization [employer] Address 75 [facility] 7t [place] [address] Care Team Providers Care Compliance Aide Name Role Phone Judy Galvan MD Primary Care Provider + Reason for Visit * Reason Comments Med Refill Encounter Details Date Type Department Care Team ([facility] st Contact Info) Description 11/29/2024 Refill [facility] MEDICINE [address] [place], [place] [phone] Judy Galvan MD [address] [place], [place] [phone] Social History Tobacco Use Types Packs/Day Years [...] Info) Description 04/14/2025 1:00 PM EDT Nutrition [facility] DIABETES/NUTRITION [address] [place] [address] [place] [address] 05/27/2025 10:00 AM EST Office Visit [facility] OPTOMETRY [address] [place] [address] Levi, Liliya, OD [address] [place] [address] documented as of this encounter Visit Diagnoses Not on filedocumented in this encounter Additional Health Concerns Assessment Noted Time PHQ-9 Depression Total Score: 7 11/19/19 25 1:52 PM EDT documented as of this encounter Care Teams Compliance Aide Relationship Specialty Start Date End Date Judy Galvan MD 230 [place] [address] PCP - General Family Medicine 07/22/18 documented as of this encounter
--- OUTSIDE RECORDS SUMMARY | 2025-03-24 14:31 | XMS_ITS | Encounter Summary ---
Author Organization [employer] Address 75 [facility] 7t [place] [address] Care Team Providers Care Take Out Waiter/Waitress Name Role Phone Judy Galvan MD Primary Care Provider + Encounter Details Date Type Department Care Team (Late st Contact Info) Description 11/12/2024 Orders Only [facility] [address] [place], [place] [phone] Judy Galvan MD [address] [place], [place] [phone] Social History Tobacco Use Types Packs/Day Years [...] Info) Description 04/14/2025 1:00 PM EDT Nutrition [facility] DIABETES/NUTRITION [address] [place] [address] [place] [address] 05/27/2025 10:00 AM EST Office Visit [facility] OPTOMETRY [address] [place] [address] Levi, Liliya, OD [address] [place] [address] documented as of this encounter Visit Diagnoses Not on filedocumented in this encounter Additional Health Concerns Assessment Noted Time PHQ-9 Depression Total Score: 0 06/26/20 23 9:44 AM EST documented as of this encounter Care Teams Take Out Waiter/Waitress Relationship Specialty Start Date End Date Judy Galvan MD [address] [place] [address] PCP - General Family Medicine 07/22/18 documented as of this encounter
--- OUTSIDE RECORDS SUMMARY | 2025-03-24 14:31 | XMS_ITS | Encounter Summary ---
Author Organization [employer] Address [address] [place] [address] [address] [place] [address] Care Team Providers Care Computer Engineering Technician Name Role Phone Judy Galvan MD Primary Care Provider + Reason for Visit * Reason Onset Date Comments Appointment Request 01/22/2023 Encounter Details Date Type Department Care Team ([facility] st Contact Info) Description 01/22/2023 Telephone [facility] MEDICINE [address] [place], [place] [phone] Judy Galvan MD 230 [place], [place] [phone] Appointment Request Social History Tobacco Use Types [...] on 12/14/2022 . Please contact pt at [phone] Guatemalan Speaker documented in this encounter Plan of Treatment Upcoming Encounters Date Type Department Care Team (Late st Contact Info) Description 04/14/2025 1:00 PM EDT Nutrition [facility] DIABETES/NUTRITION [address] [place] [address] Haley Vargas, RD [address] [place] [address] 05/27/2025 10:00 AM EST Office Visit [facility] OPTOMETRY [address] [place], [place] [phone] LeviLiliya null, OD [address] [place] [address] documented as of this encounter Visit Diagnoses Not on filedocumented in this encounter Additional Health Concerns Assessment Noted Time PHQ-9 Depression Total Score: 10 023 3:27 PM EDT documented as of this encounter Care Teams Computer Engineering Technician Relationship Specialty Start Date End Date Judy Galvan MD [address] [place], [place] [phone] PCP - General Family Medicine 07/22/18 Anya Curry Proced Tech 08/29/23 11/27/23 documented as of this encounter
--- OUTSIDE RECORDS SUMMARY | 2025-03-24 14:31 | XMS_ITS | Clinical Summary ---
Author Organization [facility] ity Address [address] [place] [address] Care Team Providers Care Side Panel Hanger Name Role Phone Judy Galvan MD Primary Care Provider +[phone] Surgical History Surgery Date Site/Laterality Comments TUBAL [...] 08/14/2023 Social Influencers of Health Screening 08/14/2023 Depression Screening 07/16/2024 COVID-19 Vaccine (1 - 2023-2 5 season) 2025 Influenza Vaccine (#1) 2025 HIB Vaccines Aged [...] age to complete this topic Care Teams Side Panel Hanger Relationship Specialty Start Date End Date Judy Galvan MD [address] [place] [phone] PCP - General 11/28/22
--- OUTSIDE RECORDS SUMMARY | 2025-03-24 14:31 | XMS_ITS | Encounter Summary ---
Author Organization [employer] Address 75 [facility] 7 [place] [address] Care Team Providers Care Program Manufacturing Leader Name Role Phone Judy Galvan MD Primary Care Provider + Reason for Visit * Reason Comments Care Management C3CM- F/U call # 4 Encounter Details Date Type Department Care Team ([facility] st Contact Info) Description 03/20/2025 Patient Outreach [facility] MEDICINE [address] [place] [phone] Judy Galvan MD [address] [place] [address] Care Management (C3CM- F/U call # 4) Social History Tobacco Use Types Packs/Day Years [...] AM EDT documented as of this encounter Progress Notes * Ranjit Stallings RN - 03/20/2025 2:47 PM EDT THANG Stallings RN and CECILE Barrientos placed outbound call to patient. Patient's name, and address confirmed. Patient states is doing well with no recent illnesses or emergency room visits. Patient reports intermittent migraines, which are well controlled with Topiramate 25 mg taken at night, as it causes drowsiness. Patient has a small plantar calcaneal spur and reports that it does not cause discomfort unless standing or walking. Patient states that diclofenac gel has not been effective and is planning to try a more cushioned supportive insole to assess for improvement. Patient reports compliance to her medications and denies any side effects. Patient state she had to use her inhaler more frequently recently due to being sick but is feeling better now. Patient reports that she missed her mammo appt but will call to reschedule. Pt reports that she attended neuro appt and her next appt isscheduled for 06/08. Patient reports that her INTERNET RESEARCHER appt was cancelled by office due to pt feeling well and was scheduled for next year. Patient reports that she was scheduled a GI appt at [facility] and was advised to complete some labs 1 week prior to appt which is on 03/31. Patient is aware of US appt on 04/02 and cotton expert appt on 04/14 @ 1 PM and PFT on 04/17. Patient reports that she was already contacted by [facility] and will sign some paper on 03/24/25. Patient also report that she filled out housing application and will turn in next week. No further questions or concerns. CM reinforced direct contact information for any additional questions or concerns. Education provided on [facility] located in [facility] of [facility]. Patient provided with after-hours line for [facility], , which offer night time triage service and option to transfer to non destructive evaluation manager provider if needed. Patient verbalizes understanding, and able to r epeat back to casualty underwriter. A follow up call will be placed within 10 days, patient agrees with plan. documented in this encounter Plan of Treatment Upcoming Encounters Date Type Department Care Team (Late st Contact Info) Description 04/14/2025 1:00 PM EDT Nutrition [facility] DIABETES/NUTRITION [address] [place], [place] [phone] Haley Vargas, ANDREW [address] [place], [place] [phone] 05/27/2025 10:00 AM EST Office Visit [facility] OPTOMETRY [address] [place] [address] Liliya Sims, OD 230 [place] [address] documented as of this encounter Visit Diagnoses Not on filedocumented in this encounter Additional Health Concerns Assessment Noted Time PHQ-9 Depression Total Score: 6 12/26/19 25 10:31 AM EDT documented as of this encounter Care Teams Program Manufacturing Leader Relationship Specialty Start Date End Date Judy Galvan MD [address] [place] [address] PCP - General Family Medicine 07/22/18 documented as of this encounter
--- OUTSIDE RECORDS SUMMARY | 2025-03-24 14:31 | XMS_ITS | Encounter Summary ---
Author Organization [employer] Address [address] [place] [address] 7 [place] [address] Care Team Providers Care Geropsychologist Name Role Phone Judy Galvan MD Primary Care Provider + Encounter Details Date Type Department Care Team (Latest Contact Info) Description 03/05/2019 Abstract [facility] CONVERSIONS Dental, Provider, DDS Social History Tobacco [...] Info) Description 04/14/2025 1:00 PM EDT Nutrition [facility] DIABETES/NUTRITION [address] [place] [address] [place] [address] 05/27/2025 10:00 AM EST Office Visit [facility] OPTOMETRY [address] [place] [address] Levi, Liliya, OD 230 [place] [address] documented as of this encounter Visit Diagnoses Not on filedocumented in this encounter Care Teams Geropsychologist Relationship Specialty Start Date End Date Judy Galvan MD 230 [place] [address] PCP - General Family Medicine 07/22/18 Anya Curry Betting Agency Manager 08/29/23 11/27/23 documented as of this encounter
--- OUTSIDE RECORDS SUMMARY | 2025-03-24 14:31 | XMS_ITS | Encounter Summary ---
Author Organization [employer] Address 75 [facility] 7t [place] [address] Care Team Providers Care Commercial Producer Name Role Phone Judy Galvan MD Primary Care Provider + Encounter Details Date Type Department Care Team ([facility] st Contact Info) Description 02/06/2025 Results Follow-Up [facility] MEDICINE [address] [place], [place] [phone] Judy Galvan MD [address] [place], [place] [phone] XR Foot 3+ Views Left Social History [...] Info) Description 04/14/2025 1:00 PM EDT Nutrition [facility] DIABETES/NUTRITION [address] [place] [address] Haley Vargas, RD 230 [place] [address] 05/27/2025 10:00 AM EST Office Visit [facility] OPTOMETRY [address] [place] [address] Levi, Liliya, OD [address] [place] [address] documented as of this encounter Visit Diagnoses Not on filedocumented in this encounter Additional Health Concerns Assessment Noted Time PHQ-9 Depression Total Score: 6 12/26/19 25 10:31 AM EDT documented as of this encounter Care Teams Commercial Producer Relationship Specialty Start Date End Date Judy Galvan MD [address] [place] [address] PCP - General Family Medicine 07/22/18 documented as of this encounter
--- OUTSIDE RECORDS SUMMARY | 2025-03-24 14:31 | XMS_ITS | Clinical Summary ---
Author Organization [employer] Address 75 [facility] 7t [place] [address] Care Team Providers Care Marketing [employer] Name Role Phone Judy Galvan MD Primary [...] Resolved, s/p TH + BSO. Fu with [facility] oncology. Obtain report of surgical biopsy. Assessment & Plan (05/29/2024 1:51 PM EST): Seen by Dr. Neal xxx DEHAIRER in the past, she will have a [...] to diagnosis of EIN. Fu closely with DEHAIRER. Myalgia 03/02/2023 Well woman exam 03/02/2023 TMJ [...] Liver US ) liver elastography [place] 03/27/24 [place] showed measurements are consistent with a moderate [...] at least . She was referred to [facility]. Moderate persistent asthma without complication 07/22/2018 [...] exercise. Pt will continue to fu with rag room supervisor at [facility] weight management program and with provider regarding medication management. Assessment & Plan (05/29/2024 1:53 PM EST): Discussed re weight reduction options including exercise, life style modifications, diet and referral to extension specialist. Recommended to decrease soda and sugary beverage consumption, increase protein intake with meals (at least 1 portion of protein with each meal) to assist with satiety, increase dietary fiber Recommended at least 150 min/week of moderate intensity exercise. Fu weight management program at [facility]. Resolved Problems Problem Noted Date Diagnosed Date [...] Encounters Date Type Department Care Team Description 03/24/2025 Orders Only GENERIC EXTERNAL DATA DEPARTMENT Provider, Generic External Data 03/20/2025 Patient Outreach [address] [address] Judy Galvan MD Care Management (C3- F/U call # 4) 03/12/[address] [address] Judy Galvan MD Referral 03/10/[address] [address] Judy Galvan MD Appointment Request 02/26/2025 Patient Outreach [address] [address] Judy Galvan MD Care Coordination (C3 -[facility] telephone call outreach) 02/24/2025 Patient Outreach [address] [address] Judy Galvan MD Care Management (C3- F/U call # 3) 02/13/2025 Patient Outreach [address] [address] Judy Galvan MD Care Management (C3- F/U call # 2) 02/12/2025 Patient Outreach [address] [address] Judy Galvan MD Care Coordination (C3 CM- [facility] telephone call outreach) 02/06/2025 11:45 AM EDT Office Visit [address] [address] Judy Galvan MD Nummular dermatitis (Primary Dx); Plantar fasciitis of left foot; Class 3 severe obesity due to excess calories with serious comorbidity and body mass index (BMI) of 45.0 to 49.9 in adult; Cerebellar cyst; Contusion of left chest wall, subsequent encounter; LUQ pain; SOB (shortness of breath) 02/06/2025 Results Follow-Up [address] [address] Judy Galvan MD XR Foot 3+ Views Left 02/05/2025 Travel 02/04/[address] [address] Judy Galvan MD Chart Prep 01/29/2025 Patient Outreach [address] [address] Judy Galvan MD Pre-visit Planning (SDOH screening completed on 12/24/2024) 01/12/2025 Patient Outreach [address] [address] Judy Galvan MD Care Management ([facility]- F/U call # 1) 01/07/2025 Patient Outreach [address] [address] Judy Galvan MD 12/29/2024 Plan of Care Documentation [address] [address] 12/25/[address] [address] Judy Galvan MD referral question 12/25/2024 Patient Outreach [address] [address] Judy Galvan MD Care Management ([facility]- Initial assessment/enrollme nt) 12/24/2024 Patient Outreach [address] [address] Judy Galvan MD Care Coordination 12/23/[address] [address] Judy Galvan MD Appointment Request from Last [...] Info) Description 04/14/2025 1:00 PM EDT Nutrition [facility] DIABETES/NUTRITION [address] [place] [address] Haley Vargas, ANDREW 230 [place] [address] 05/27/2025 10:00 AM EST Office Visit [facility] OPTOMETRY [address] [place] [address] Levi, Liliya, OD [address] [place] [address] Health Maintenance Due Date Last Done Comments CT Colonography 1970 FIT DNA/Cologuard 1970 FIT 1970 FOBT 1970 HIV Screening 1970 Sigmoidoscopy 1970 Pneumococcal Vaccine: 50+ Years (1 of 2 - PCV) 1989 Zoster Vaccines (1 of 2) 01/22/2020 Hepatitis B Vaccines (2 of 3 - 19+ 3-dose series) 04/20/2021 03/23/2021 Mammogram 07/27/2024 07/27/2023, 04/02/2020, 07/30/2018 COVID-19 Vaccine (3 - 2024-2 6 season) 2025 11/06/2020, 10/05/2020 Influenza Vaccine (#1) 2025 , 05/26/2020, 07/22/2018 [...] Procedure Name Priority Date/Time Associated Diagnosis Comments HEPATIC FUNCTION PANEL Routine 12:21 PM EDT XR FOOT 3+ VIEWS LEFT Routine 02/06/2025 [...] Relevant to Health Maintenance Results * (ABNORMAL) Hepatic Function Panel (03/24/2025 12:21 PM EDT) Bilirubin, Total 0.5 0.0 - 1.0 mg/dL [facility] Bilirubin, Direct 0.2 0.0 - 0.5 mg/dL [facility] Aspartate Amino Transferase 30 5 - 31 U/L [facility] Alanine Aminotransferase 43(H) 0 - 31 U/L [facility] Total Protein 7.0 6.5 - 8.0 g/dL [facility] Albumin Level 4.3 3.5 - 5.0 g/dL [facility] Alkaline Phosphatase 97 39 - 117 U/L [facility] 03/24/2025 12:2 1 PM EDT 03/24/2025 12:21 PM EDT us Generic External Data Provider LAB BLOOD ORDERAB LES Final Result [facility] [address] [place] [address] [phone] * XR Foot 3+ Views Left (02/06/2025 11:55 AM EDT) Anatomical Region Laterality Modality Lower Extremities, Foot Left Radiogra phic Imaging 02/06/2025 11:5 5 AM EDT Narrative 02/06/2025 1:05 PM EDT [facility] [address] [place] [address] XRay Report Signed Patient: Elza Bhardwaj MR#: [id number] : 1970 Acct:[id number] Age/Sex: 55 / F ADM Date: 02/06/25 [facility]: Judy Galvan MD Ordering Physician: Judy Galvan MD Date of Service: 02/06/25 Procedure(s): XR foot LT min 3V Accession Number(s): [id number] cc: Judy Galvan MD EXAMINATION: XR FOOT, [...] 02/06/25 1303 DD/ 1155 TD/TT: 02/06/25 1200 Abe Teacher: Procedure Note Donotuseinterpreter, Image - 02/06/2025 [facility] [address] [place] [address] XRay Report Signed Patient: Marvin Bhardwaj#: [id number] : 1970Acct:[id number] Age/Sex: 55 / FADM Date: 02/06/25 Loc: HO.HHCX Attending Dr: Judy Galvan MD Ordering Physician: Judy Galvan MD Date of Service: 02/06/25 Procedure(s): XR foot LT min 3V Accession Number(s): [id number] cc: Judy Galvan MD EXAMINATION: XR FOOT, [...] 02/06/25 1303 DD/ 1155 TD/TT: 02/06/25 1200 Abe Teacher: Judy Galvan MD IMG XR PROCEDURES Edited Result - Final * (ABNORMAL) Lipid Panel, Standard (11/10/2024 9:20 PM EDT) Triglycerides 88 <150 mg/dL [facility] Comment:Desirable Triglyceri de: less than 150 mg/dLBorderline High Triglyceride 150-199 mg/dLHigh Triglyceride: 200-499 mg/dLVery High Triglyceride: greater than or equal to 5OO mg/dL Cholesterol 212(H) <200 mg/dL [facility] Comment:Desirable Cholestero l: less than 200 mg/dLBorderline High Cholesterol: 200-239 mg/dLHigh Cholesterol: greater than 239 mg/dL LDL Cholesterol Calculated 95 <100 mg/dL [facility] Comment:Desirable LDL: less than 100 mg/dLNear Optimal/Above Optimal LDL: 110- 129 mg/dLBorderline High LDL: 130-159 mg/dLHigh LDL: 160-189 mg/dLVery High LDL: greater than or equal to 190 mg/dL HDL Cholesterol 100 >40 mg/dL [facility] Comment:Desirable HDL: great er than 40 mg/dL Note: This HDL assay may give artificially low results in patients with liver disease. 11/10/2024 9:20 PM EDT 11/10/2024 9:22 PM EDT us Generic External Data Provider LAB BLOOD ORDERAB LES Final Result Performing Organization Address City/State/RUST Co de Phone Number [facility] [address] [place] [phone] * BI Mammogram Screening Tomosynthesis Bilateral (07/27/2023 11:27 AM EST) Anatomical Region Laterality Modality Breast Bilateral Mammography 07/27/2023 11:2 7 AM EST Narrative 08/14/2023 4:56 PM EST [facility] [address] [place] [address] Mammography Report Signed Patient: Elza Bhardwaj MR#: [id number] : 1970 Acct:[id number] Age/Sex: 53 / F ADM Date: 07/27/23 Loc: HO.MAMMO Attending Dr: Judy Galvan MD Ordering Physician: Judy Galvan MD Results: 1Ne gative Date of Service: 07/27/23 Follow Up: 1 Year From Orig inal Mammogram Procedure(s): MM tomosynthesis screening BI Accession Number(s): [id number] cc: Judy Galvan MD EXAMINATION: MM SCREENING [...] in OV> 08/14/23 1652 DD/ 1127 TD/TT: Abe Teacher: Procedure Note Donotuseinterpreter, Image - 08/14/2023 [facility] [address] [place] [address] Mammography Report Signed Patient: Marvin Bhardwaj#: [id number] : 1970Acct:[id number] Age/Sex: 53 / FADM Date: 07/27/23 Loc: CAR[facility] Attending Dr: Judy Galvan MD Ordering Physician: Judy Galvan MDResults: 1Ne gative Date of Service: 07/27/23Follow Up: 1 Year From Orig inal Mammogram Procedure(s): MM tomosynthesis screening BI Accession Number(s): [id number] cc: Judy Galvan MD EXAMINATION: MM SCREENING [...] in OV> 08/14/23 1652 DD/ 1127 TD/TT: Abe Teacher: us Judy Galvan MD IMG BI PROCEDURES Final Result * HEPATITIS C AB W/REFL TO HCV RNA, QN, PCR (03/04/2021 10:50 AM EDT) HEPATITIS C ANTIBODY NON-REACT GIULIANO NON-REACT GIULIANO [facility] INDEX 0.03 <1.00 [facility] Comment: HCV antibody was non-reactive. There is no laboratory evidence of HCV infection. In most cases, no further action is required. However, if recent HCV exposure is suspected, a test for HCV RNA (test code 07554) is suggested. For additional information please refer to http://education.Jamii.[place]/faq/MDP87t5 (This link is being provided for informational/ educational purposes only.) 03/04/2021 10:5 0 AM EDT us Saran Elise MD HISTORICAL/NON ORDERABLE LAB S Final Result [facility] [address] * Hm Colonoscopy (12/08/2020 2:43 PM EDT) us Historical Provider HEALTH MAINTENANCE Final Result * [...] was performed using the APTIMA HPV Assay ([employer] This assay detects E6/E7 viral messenger RNA (mRNA) from 14 high-risk HPV types (16,18,31,33,35,39,45,51,52,56,58,59,66,68). The analytical performance characteristics of this assay have been determined by [employer]. The modifications have not been cleared or approved by the FDA. This assay has been validated pursuant to the CLIA regulations and is used for clinical purposes. THIS TEST WAS PERFORMED AT: [facility] [address] [place] [address],[place] [address] AVIS PARKER MD 07/29/2020 10:1 7 AM EST Juan Jose Gill MD HISTORICAL/NON ORDERABLE LABS Fi nal Result [facility] [address] from Last 3 Months or Most Recently Relevant to Health Maintenance Insurance [facility] C3 Care Teams Marketing [employer] Relationship Specialty Start Date End Date Judy Galvan MD [address] [place] [phone] PCP - General Family Medicine 07/22/18
--- OUTSIDE RECORDS SUMMARY | 2025-03-24 14:31 | XMS_ITS | Encounter Summary ---
Author Organization [employer] Address [address] [place] [address] 7t [place] [address] Care Team Providers Care Masonry Instructor Name Role Phone Judy Galvan MD Primary Care Provider + Encounter Details Date Type Department Care Team ([facility] Contact Info) Description 01/02/2023 Abstract [facility] MEDICINE [address] [place], [place] [phone] Judy Galvan MD [address] [place], [place] [phone] Social History Tobacco Use Types Packs/Day Years [...] Department Care Team (Late Contact Info) Description 04/14/2025 1:00 PM EDT Nutrition [facility] DIABETES/NUTRITION [address] [place], [place] [phone] Haley Vargas, ANDREW [address] [place] [address] 05/27/2025 10:00 AM EST Office Visit [facility] OPTOMETRY [address] [place], [place] [phone] Liliya Sims, OD [address] [place] [address] documented as of this encounter Visit Diagnoses Not on filedocumented in this encounter Additional Health Concerns Assessment Noted Time PHQ-9 Depression Total Score: 10 023 3:27 PM EDT documented as of this encounter Care Teams Masonry Instructor Relationship Specialty Start Date End Date Judy Galvan MD [address] [place] [address] PCP - General Family Medicine 07/22/18 Anya Curry Rail Technician 08/29/23 11/27/23 documented as of this encounter
--- OUTSIDE RECORDS SUMMARY | 2025-03-24 14:31 | XMS_ITS | Encounter Summary ---
Author Organization [employer] Address 75 [facility] 7t [place] [address] Care Team Providers Care Circular Knife Cutter Machine Name Role Phone Judy Galvan MD Primary Care Provider + Reason for Visit * Reason Comments Med Refill Encounter Details Date Type Department Care Team ([facility] st Contact Info) Description 08/10/2023 Refill [facility] MEDICINE [address] [place], [place] [phone] Judy Galvan MD [address] [place], [place] [phone] PUD (peptic ulcer disease) Social History Tobacco [...] Info) Description 04/14/2025 1:00 PM EDT Nutrition [facility] DIABETES/NUTRITION [address] [place] [address] [place] [address] 05/27/2025 10:00 AM EST Office Visit [facility] OPTOMETRY [address] [place] [address] Levi, Liliya, OD [address] [place] [address] documented as of this encounter Visit Diagnoses Diagnosis PUD (peptic ulcer disease) Peptic ulcer, unspecified site, unspecified as acute or chronic, without mention of hemorrhage, perforation, or obstruction documented in this encounter Additional Health Concerns Assessment Noted Time PHQ-9 Depression Total Score: 0 06/26/20 23 9:44 AM EST documented as of this encounter Care Teams Circular Knife Cutter Machine Relationship Specialty Start Date End Date Judy Galvan MD [address] [place] [address] PCP - General Family Medicine 07/22/18 Anya Curry Package Yarns Drying Machine Operator 08/29/23 11/27/23 documented as of this encounter
--- OUTSIDE RECORDS SUMMARY | 2025-03-24 14:31 | XMS_ITS | Encounter Summary ---
Author Organization [employer] Address 75 [facility] 7t [place] [address] Care Team Providers Care Kennel Technician Name Role Phone Judy Galvan MD Primary Care Provider + Encounter Details Date Type Department Care Team (Late st Contact Info) Description 03/24/2025 Orders Only GENERIC EXTERNAL DATA [...] the past 12 months, has t he [employer], [employer], oil or water [employer] threatened to shut off services in your [...] Info) Description 04/14/2025 1:00 PM EDT Nutrition [facility] DIABETES/NUTRITION [address] [place] [address] Haley Vargas, RD [address] [place] [address] 05/27/2025 10:00 AM EST Office Visit [facility] OPTOMETRY [address] [place] [address] Levi, Liliya, OD [address] [place] [address] documented as of this encounter Procedures Procedure Name Priority Date/Time Associated Diagnosis Comments HEPATIC FUNCTION PANEL Routine 03/24/2025 12:21 PM EDT documented in this encounter Results * (ABNORMAL) Hepatic Function Panel (03/24/2025 12:21 PM EDT) Bilirubin, Total 0.5 0.0 - 1.0 mg/dL [facility] Bilirubin, Direct 0.2 0.0 - 0.5 mg/dL [facility] Aspartate Amino Transferase 30 5 - 31 U/L [facility] Alanine Aminotransferase 43(H) 0 - 31 U/L [facility] Total Protein 7.0 6.5 - 8.0 g/dL [facility] Albumin Level 4.3 3.5 - 5.0 g/dL [facility] Alkaline Phosphatase 97 39 - 117 U/L [facility] 03/24/2025 12:2 1 PM EDT 03/24/2025 12:21 PM EDT us Generic External Data Provider LAB BLOOD ORDERAB LES Final Result Performing Organization Address City/State/[facility] de Phone Number [facility] [address] [place] [phone] [phone] documented in this encounter Visit Diagnoses Not on filedocumented in this encounter Additional Health Concerns Assessment Noted Time PHQ-9 Depression Total Score: 6 12/26/19 25 10:31 AM EDT documented as of this encounter Care Teams Kennel Technician Relationship Specialty Start Date End Date Judy Galvan MD [address] [place] [phone] PCP - General Family Medicine 07/22/18 documented as of this encounter
--- OUTSIDE RECORDS SUMMARY | 2025-03-24 14:31 | XMS_ITS ---
Author Organization [employer] Address [address] [place] [address] 7 [place] [address] Care Team Providers Care Flooring Sales Manager Name Role Phone Judy Galvan MD Primary Care Provider + CM Complex Status:Enrolled (Active) Start date:11/11/2024 Enrollment date:12/25/2024 Enrollment reason:ADT Feed Overview ED- Pt went to [facility] ED on 11/10/24. Case Team Name Relationship Phone Ranjit Stallings RN(Responsible Staff) Registered Elsi bar [phone] Continued Care and Services Coordination
--- OUTSIDE RECORDS SUMMARY | 2025-03-24 14:31 | XMS_ITS | Encounter Summary ---
Author Organization [employer] Address [address] [facility] 7 [place] [address] Care Team Providers Care Corridor Redevelopment Manager Name Role Phone Judy Galvan MD Primary Care Provider + Reason for Visit * Reason Onset Date Comments Appointment Request 03/10/2025 Encounter Details Date Type Department Care Team ([facility] st Contact Info) Description 03/10/2025 Telephone [facility] MEDICINE [address] [place], [place] [phone] Judy Galvan MD 230 [place], [place] [phone] Appointment Request Social History Tobacco Use Types [...] Info) Description 04/14/2025 1:00 PM EDT Nutrition [facility] DIABETES/NUTRITION 230 [place] [address] 230 [place], [place] [phone] 05/27/2025 10:00 AM EST Office Visit [facility] OPTOMETRY [address] [place] [address] Liliya Sims, OD 230 [place] [address] documented as of this encounter Visit Diagnoses Not on filedocumented in this encounter Additional Health Concerns Assessment Noted Time PHQ-9 Depression Total Score: 6 12/26/19 25 10:31 AM EDT documented as of this encounter Care Teams Corridor Redevelopment Manager Relationship Specialty Start Date End Date Judy Galvan MD 230 [place] [address] PCP - General Family Medicine 07/22/18 documented as of this encounter
--- OUTSIDE RECORDS SUMMARY | 2025-03-24 14:31 | XMS_ITS | Encounter Summary ---
Author Organization [employer] Address [address] [facility] 7t [place] [address] Care Team Providers Care Analytic Programmer Name Role Phone Judy Galvan MD Primary Care Provider + Encounter Details Date Type Department Care Team (Late st Contact Info) Description 11/26/2023 Orders Only [facility] MEDICINE [address] [place] [address] Provider, MD Kirsitn Social History Tobacco Use Types Packs/Day Years [...] Info) Description 04/14/2025 1:00 PM EDT Nutrition [facility] DIABETES/NUTRITION [address] [place] [address] [place] [address] 05/27/2025 10:00 AM EST Office Visit [facility] OPTOMETRY [address] [place] [address] Liliya Sims, OD 230 [place] [address] documented as of this encounter Procedures Procedure [...] documented as of this encounter Care Teams Analytic Programmer Relationship Specialty Start Date End Date Judy Galvan MD 230 [place] [address] PCP - General Family Medicine 07/22/18 Anya Curry Saddle Stitcher 08/29/23 11/27/23 documented as of this encounter
--- OUTSIDE RECORDS SUMMARY | 2025-03-24 14:31 | XMS_ITS | Encounter Summary ---
Author Organization [employer] Address [address] [facility] 7 [place] [address] Care Team Providers Care Diamond Cleaver Name Role Phone Judy Galvan MD Primary Care Provider + Encounter Details Date Type Department Care Team (Late st Contact Info) Description 08/04/2022 Orders Only [facility] CHC MED & PEDS [address] [place] [address] Yasmin Garcia LPN Social History Tobacco Use [...] EDT Nutrition [facility] DIABETES/NUTRITION 230 [place] [address] [place] [address] 05/27/2025 10:00 AM EST Office Visit [facility] OPTOMETRY [address] [place] [address] Liliya Sims, OD 230 [place] [address] documented as of this encounter Visit Diagnoses Not on filedocumented in this encounter Care Teams Diamond Cleaver Relationship Specialty Start Date End Date Judy Galvan MD [address] [place] [address] PCP - General Family Medicine 07/22/18 Anya Curry Adult And Pediatric Neurologist 08/29/23 11/27/23 documented as of this encounter
== END 2025-03-24 12:00 | disposition home or self-care (01) ==
LOC: HO.LAB 11:59
PROVIDERS: PCP Internal Medicine; Visit Provider Nurse Practitioner Family
DX: R74.01 Elevation of levels of liver transaminase levels (principal)
CPT/HCPCS: 36415; 80076

== ENCOUNTER 2025-03-31 13:21 | Outpatient (AMB) | payer MEDICAID, SELFPAY ==
[2025-03-31 13:25] VITALS: BP 102/70; PULSE 70; O2SAT 99; BMI 48.6
--- NOTE | 2025-03-31 13:25 | A.OFFVIS_ITS ---
Vital Signs 03/31/25 13:25 Height 5 ft 2 in Weight 266 lb BMI 48.6 BP 102/70 Blood Pressure Location Rt brachial Position Sitting Pulse 70 Pulse Source Pulse Oximeter Pulse Oximetry (%) 99 Oxygen Delivery Method Room Air Intake Visit Reasons: 6 mo PT R/S from 02/23/25 Intake Note: ESTABLISHED PATIENT for GERD mgmt. Reminded of labs 03/23 Chief Complaint; C.O. epigastric pain, new onset. Pt states that she ran out of her medication and did not think to call the office for a refill. No additional sx or concerns. Joint Machine Operator Required: Yes Joint Machine Operator Services: Joint Machine Operator Present Joint Machine Operator Name: Sandra [id number] + [facility] Information Interpreted: clinical only Accompanied by: Self / Same As Patient Allergies No Known Allergies (No Known Allergies*) Allergy (Verified 03/31/25 13:37) HPI HPI 6 mo PT R/S from 02/23/25: Details: LAST VISIT: Fatty liver disease, nonalcoholic GERD (gastroesophageal reflux disease) Hx of cholecystectomy Postprandial bloating Plan Discussed with patient the importance of losing weight and eating food low in fat, low carb, low-salt and high-protein diet. Patient was encouraged to try to exercise. Patient is planning on going for walks when the weather gets better. Will repeat liver enzymes again. Patient will avoid dietary triggers and late night snacking. Staying upright for minimum 3 hours after meals discussed with patient. Patient will be due to go for colonoscopy and we will schedule that next visit. Patient reported family history of CRC. Patient is agreeable to this plan and verbalizes understanding of instructions. She was given the opportunity to ask questions and all questions answered. ? Thank you for allowing me to participate in her care Orders Liver Panel Today R74.01 TODAY'S VISIT Patient is here today for follow-up. Patient reports that she has been feeling well except patient ran out of pantoprazole and she began to have epigastric pain and reflux. Patient reports that she was trying to lose weight, patient last her job for while and was little depressed. Patient just started a new job and she is following up with diet patient to help her with weight loss. Patient was unable to go through with bariatric services and she was unable to do portion control. Patient denies melena, hematochezia, unintentional weight loss or ribbon like stools. Patient denies any dyspepsia, dysphagia or odynophagia. Patient denies any GI concerning symptoms today except for acid reflux. [facility] Medical History Left chest thoracotomy scar GERD (gastroesophageal reflux disease) DJD (degenerative joint disease) Lipoma of lung History of COVID-19 Morbid obesity Hypovitaminosis D Asthma Surgical History Hx of total hysterectomy (~06/2024) History of lung surgery History of colonoscopy History of cholecystectomy History of bilateral tubal ligation History of Family History Mother Hypertension Diabetes Father Cancer Daughter No problems noted. 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 Sexual orientation: Straight/Heterosexual Gender identity: Female Female Reproductive History Menstrual Age of Menarche: 9 Review of Systems Const Denies weight gain and Denies weight loss ENT Reports no additional complaints, Denies dysphagia and Denies odynophagia Card Reports no additional complaints Resp Reports no additional complaints GI Denies abdominal pain, Denies belching, Denies melena, Denies bloating, Denies change in bowel habits, Denies dysphagia, Denies excessive flatus, Denies dyspepsia, Denies heartburn, Denies diarrhea, Denies loose stools, Denies nausea, Denies odynophagia and Denies vomiting Musc Reports no additional complaints Neuro Reports no additional complaints Psych Reports no additional complaints Endo Reports no additional complaints Physical Exam Vital Signs: Last Vital Signs Pulse 70 03/31/25 13:25 BP 102/70 03/31/25 13:25 Pulse Ox 99 09/16/25 13:25 Oxygen Delivery Method Room Air 03/31/25 13:25 BMI result Body Mass Index 48.6 Const General: healthy appearing and no acute distress Nutritional Appearance: obese Orientation/consciousness: patient oriented x3 Resp Effort & Inspection: normal respiratory effort, able to speak in complete sentences, no tracheal deviation and symmetric chest movement Auscultation: clear to auscultation bilaterally Cardio Rate: regular rate GI Inspection: Yes normal to inspection, No distended and Yes obesity Palpation (GI): Soft to palpation, not firm, nontender and No hepatosplenomegaly present Auscultation: normal bowel sounds General: Yes no CVA tenderness Back/Spine/Pelvis Back: no CVA tenderness Skin General skin exam: elasticity normal, turgor normal and dry skin Neuro General: patient oriented x3 Psych Appearance: grossly normal Mental Status: mental status grossly normal Results Reviewed Results Reviewed: Laboratory Tests 03/24/25 12:21 Total Bilirubin 0.5 Direct Bilirubin 0.2 AST 30 ALT 43 H Alkaline Phosphatase 97 FIB-4 SCORE: 1.15?points Advanced fibrosis excluded Approximate fibrosis stage: Candy 0-1 (Deyvi et al 2006) Assessment & Plan Assessment & Plan (1) GERD (gastroesophageal reflux disease): Code(s): K21.9 - Gastro-esophageal reflux disease without esophagitis Category: Medical Qualifiers: Esophagitis presence: esophagitis presence not specified Qualified Code(s): K21.9 - Gastro-esophageal reflux disease without esophagitis (2) Fatty liver disease, nonalcoholic: Code(s): K76.0 - Fatty (change of) liver, not elsewhere classified Category: Medical (3) Morbid obesity: Code(s): E66.01 - Morbid (severe) obesity due to excess calories Category: Medical Plan Will check ultrasound with elastography. Patient was encouraged to get her blood work done to day. Will repeat liver fibrosis panel. Again long discussion with patient about weight loss. Patient will try weight dietitian at her PCPs office. Patient can try tirzepatide for weight loss. Patient will discuss this with her PCP during next visit. Discussed with patient avoiding di etary triggers in late night snacking. Staying upright for minimal 3 hours after meals discussed with patient. I will see patient in 3-4 months, sooner on as needed basis. Patient is agreeable to this plan and verbalizes understanding of instructions. She was given the opportunity to ask questions and all questions answered. Orders: Orders US abdomen rubio w elastography Today K76.0 - Fatty (change of) liver, not elsewhere classified Liver Fibrosis Pnl Today K76.0 - Fatty (change of) liver, not elsewhere classified Medications: New methylcellulose (laxative) (Citrucel) take it with full glass of water 1,000 mg (2 x 500 mg) PO DAILY 60 tabs 2RF K52.9 - Noninfective gastroenteritis and colitis, unspecified pantoprazole 20 mg PO DAILY 90 tabs 2RF Coding Level of Care Code Est Pt Level 4 (04678) Complex EM visit Add On G2211 Diagnoses Gastroesophageal reflux disease, unspecified whether esophagitis present K21.9 Esophagitis presence: esophagitis presence not specified Fatty liver disease, nonalcoholic K76.0 Morbid obesity E66.01 Time Spent (min) 35 Comment 25 minutes spent with patient and additional 10 minutes spent reviewing her records
--- OUTSIDE RECORDS SUMMARY | 2025-03-31 17:17 | XMS_ITS | Encounter Summary ---
Author Organization [employer] Address [address] [place] [address] 7t [place] [address] Care Team Providers Care Imposer Name Role Phone Judy Galvan MD Primary Care Provider + Encounter Details Date Type Department Care Team ([facility] Contact Info) Description 01/02/2023 Abstract [facility] MEDICINE 230 [place], [place] [phone] Judy Galvan MD 230 [place], [place] [phone] Social History Tobacco Use Types Packs/Day Years [...] Info) Description 04/14/2025 1:00 PM EDT Nutrition [facility] DIABETES/NUTRITION 230 [place], [place] [phone] Haley Vargas, ANDREW 230 [place] [address] 05/27/2025 10:00 AM EST Office Visit [facility] OPTOMETRY [address] [place], [place] [phone] Liliya Sims, OD 230 [place] [address] documented as of this encounter Visit Diagnoses Not on filedocumented in this encounter Additional Health Concerns Assessment Noted Time PHQ-9 Depression Total Score: 10 023 3:27 PM EDT documented as of this encounter Care Teams Imposer Relationship Specialty Start Date End Date Judy Galvan MD [address] [place] [address] PCP - General Family Medicine 07/22/18 Anya Curry Retail Advisor 08/29/23 11/27/23 documented as of this encounter
--- OUTSIDE RECORDS SUMMARY | 2025-03-31 17:17 | XMS_ITS ---
Author Organization [employer] Address [address] [place] [address] 7 [place] [address] Care Team Providers Care Food [place] Driver Name Role Phone Judy Galvan MD Primary Care Provider + CM Complex Status:Enrolled (Active) Start date:11/11/2024 Enrollment date:12/25/2024 Enrollment reason:ADT Feed Overview ED- Pt went to [facility] on 11/10/24. Case Team Name Relationship Phone Ranjit Stallings RN(Responsible Staff) Registered El[employer] bar [phone] Continued Care and Services Coordination
--- OUTSIDE RECORDS SUMMARY | 2025-03-31 17:17 | XMS_ITS | Encounter Summary ---
Author Organization [employer] Address [address] [facility] 7t [place] [address] Care Team Providers Care Auto Painter Helper Name Role Phone Judy Galvan MD Primary Care Provider + Encounter Details Date Type Department Care Team ([facility] st Contact Info) Description 02/06/2025 Results Follow-Up [facility] MEDICINE [address] [place], [place] [phone] Judy Galvan MD [address] [place], [place] [phone] XR Foot 3+ Views Left Social History [...] Description 04/14/2025 1:00 PM EDT Nutrition [facility] DIABETES/NUTRITION [address] [place] [address] Haley Vargas, RD 230 [place] [address] 05/27/2025 10:00 AM EST Office Visit [facility] OPTOMETRY [address] [place] [address] Levi, Liliya, OD 230 [place] [address] documented as of this encounter Visit Diagnoses Not on filedocumented in this encounter Additional Health Concerns Assessment Noted Time PHQ-9 Depression Total Score: 6 12/26/19 25 10:31 AM EDT documented as of this encounter Care Teams Auto Painter Helper Relationship Specialty Start Date End Date Judy Galvan MD [address] [place] [address] PCP - General Family Medicine 07/22/18 documented as of this encounter
--- OUTSIDE RECORDS SUMMARY | 2025-03-31 17:17 | XMS_ITS | Encounter Summary ---
Author Organization [employer] Address [address] [facility] 7 [place] [address] Care Team Providers Care Assistant Manager Quality Management Name Role Phone Judy Galvan MD Primary Care Provider + Encounter Details Date Type Department Care Team (Late st Contact Info) Description 08/04/2022 Orders Only [facility] CHC MED & PEDS [address] [place] [address] Yasmin Garcia LPN Social History Tobacco Use [...] Info) Description 04/14/2025 1:00 PM EDT Nutrition [facility] DIABETES/NUTRITION [address] [place] [address] [place] [address] 05/27/2025 10:00 AM EST Office Visit [facility] OPTOMETRY [address] [place] [address] Liliya Sims, OD [address] [place] [address] documented as of this encounter Visit Diagnoses Not on filedocumented in this encounter Care Teams Assistant Manager Quality Management Relationship Specialty Start Date End Date Judy Galvan MD [address] [place] [address] PCP - General Family Medicine 07/22/18 Anya Curry Crossband Layer 08/29/23 11/27/23 documented as of this encounter
--- OUTSIDE RECORDS SUMMARY | 2025-03-31 17:17 | XMS_ITS | Encounter Summary ---
Author Organization [employer] Address [address] [place] [address] 7 [place] [address] Care Team Providers Care Site Physician Name Role Phone Judy Galvan MD Primary Care Provider + Encounter Details Date Type Department Care Team (Latest Contact Info) Description 03/05/2019 Abstract [facility] CONVERSIONS Dental, Provider, DDS Social History Tobacco [...] 04/14/2025 1:00 PM EDT Nutrition [facility] DIABETES/NUTRITION [address] [place] [address] [place] [address] 05/27/2025 10:00 AM EST Office Visit [facility] OPTOMETRY [address] [place] [address] Levi, Liliya, OD [address] [place] [address] documented as of this encounter Visit Diagnoses Not on filedocumented in this encounter Care Teams Site Physician Relationship Specialty Start Date End Date Judy Galvan MD 230 [place] [address] PCP - General Family Medicine 07/22/18 Anya Curry Tool Design Draftsperson 08/29/23 11/27/23 documented as of this encounter
--- OUTSIDE RECORDS SUMMARY | 2025-03-31 17:17 | XMS_ITS | Encounter Summary ---
Author Organization [employer] Address [address] [place] [address] [address] [place] [address] Care Team Providers Care Client Care Consultant Name Role Phone Judy Galvan MD Primary Care Provider + Reason for Visit * Reason Onset Date Comments Appointment Request 01/22/2023 Encounter Details Date Type Department Care Team ([facility] st Contact Info) Description 01/22/2023 Telephone [facility] MEDICINE [address] [place], [place] [phone] Judy Galvan MD [address] [place], [place] [phone] Appointment Request Social History Tobacco Use Types [...] on 12/14/2022 . Please contact pt at [phone] Nauruan Speaker documented in this encounter Plan of Treatment Upcoming Encounters Date Type Department Care Team (Late st Contact Info) Description 04/14/2025 1:00 PM EDT Nutrition [facility] DIABETES/NUTRITION [address] [place] [address] Haley Vargas, RD 230 [place] [address] 05/27/2025 10:00 AM EST Office Visit [facility] OPTOMETRY [address] [place], [place] [phone] LeviLiliya null, OD [address] [place] [address] documented as of this encounter Visit Diagnoses Not on filedocumented in this encounter Additional Health Concerns Assessment Noted Time PHQ-9 Depression Total Score: 10 023 3:27 PM EDT documented as of this encounter Care Teams Client Care Consultant Relationship Specialty Start Date End Date Judy Galvan MD 230 [place], [place] [phone] PCP - General Family Medicine 07/22/18 Anya Curry Food Stand Manager 08/29/23 11/27/23 documented as of this encounter
--- OUTSIDE RECORDS SUMMARY | 2025-03-31 17:17 | XMS_ITS | Clinical Summary ---
Author Organization [employer] Address 75 [facility] 7t [place] [address] Care Team Providers Care Eye Clinic Manager Name Role Phone Judy Galvan MD [...] Resolved, s/p TH + BSO. Fu with [facility] oncology. Obtain report of surgical biopsy. Assessment & Plan (05/29/2024 1:51 PM EST): Seen by Dr. Neal xxx [employer] in the past, she will have a [...] to diagnosis of EIN. Fu closely with [employer]. Myalgia 03/02/2023 Well woman exam 03/02/2023 TMJ [...] Liver US ) liver elastography on 03/27/24 ([facility]) showed measurements are consistent with a moderate [...] at least . She [facility] [employer] [facility]. Moderate persistent asthma without complication 07/22/2018 [...] exercise. Pt will continue to fu with promotion specialist at [facility] weight management program and with provider regarding medication management. Assessment & Plan (05/29/2024 1:53 PM EST): Discussed re weight reduction options including exercise, life style modifications, diet and referral to archives specialist. Recommended to decrease soda and sugary beverage consumption, increase protein intake with meals (at least 1 portion of protein with each meal) to assist with satiety, increase dietary fiber Recommended at least 150 min/week of moderate intensity exercise. Fu weight management program at [facility]. Resolved Problems Problem Noted Date Diagnosed Date [...] Provider, Generic External Data 03/20/2025 Patient Outreach [address] [address] Judy Galvan MD Care Management (C3- F/U call # 4) 03/12/[address] [address] Judy Galvan MD Referral 03/10/[address] [address] Judy Galvan MD Appointment Request 02/26/2025 Patient Outreach [address] [address] Judy Galvan MD Care Coordination (C3 -[facility] telephone call outreach) 02/24/2025 Patient Outreach [address] [address] Judy aGlvan MD Care Management (C3- F/U call # 3) 02/13/2025 Patient Outreach [address] [address] Judy Galvan MD Care Management (C3- F/U call # 2) 02/12/2025 Patient Outreach [address] [address] Judy Galvan MD Care Coordination (C3 [facility]- [facility] telephone call outreach) 02/06/2025 11:45 AM EDT Office Visit [address] [address] Judy Galvan MD Nummular dermatitis (Primary Dx); Plantar fasciitis of left foot; Class 3 severe obesity due to excess calories with serious comorbidity and body mass index (BMI) of 45.0 to 49.9 in adult; Cerebellar cyst; Contusion of left chest wall, subsequent encounter; LUQ pain; SOB (shortness of breath) 02/06/2025 Results Follow-Up [address] [address] Judy Galvan MD XR Foot 3+ Views Left 02/05/2025 Travel 02/04/[address] [address] Judy Galvan MD Chart Prep 01/29/2025 Patient Outreach [address] [address] Judy Galvan MD Pre-visit Planning (SDOH screening completed on 12/24/2024) 01/12/2025 Patient Outreach [address] [address] Judy Galvan MD Care Management (C3CM- F/U call # 1) 01/07/2025 Patient Outreach [address] [address] Judy Galvan MD 12/29/2024 Plan of Care Documentation [address] [address] from Last 3 Months Immunizations Immunization Administration [...] the past 12 months, has t he [employer]), gas, oil or water company threatened to [...] Info) Description 04/14/2025 1:00 PM EDT Nutrition [facility] DIABETES/NUTRITION [address] [place] [address] Haley Vargas, RD 230 [place] [address] 05/27/2025 10:00 AM EST Office Visit [facility] OPTOMETRY [address] [place] [address] Levi, Liliya, OD [address] [place] [address] Health Maintenance Due Date Last Done Comments [...] Bilirubin, Total 0.5 0.0 - 1.0 mg/dL [facility] Bilirubin, Direct 0.2 0.0 - 0.5 mg/dL [facility] Aspartate Amino Transferase 30 5 - 31 U/L [facility] Alanine Aminotransferase 43(H) 0 - 31 U/L [facility] Total Protein 7.0 6.5 - 8.0 g/dL [facility] Albumin Level 4.3 3.5 - 5.0 g/dL [facility] Alkaline Phosphatase 97 39 - 117 U/L [facility] 03/24/2025 12:2 1 PM EDT 03/24/2025 12:21 PM EDT us Generic External Data Provider LAB BLOOD ORDERAB LES Final Result [facility] [address] [place] [address] [phone] * XR Foot 3+ Views Left (02/06/2025 11:55 AM EDT) Anatomical Region Laterality Modality Lower Extremities, Foot Left Radiogra phic Imaging 02/06/2025 11:5 5 AM EDT Narrative 02/06/2025 1:05 PM EDT [facility] [address] [place], [place] XRay Report Signed Patient: Elza Bhardwaj MR#: [id number] : 1970 Acct:[id number] Age/Sex: 55 / F ADM Date: 02/06/25 [facility]: Judy Galvan MD Ordering Physician: Judy Galvan MD Date of Service: 02/06/25 Procedure(s): XR foot LT min 3V Accession Number(s): [id number] cc: Judy Galvan MD EXAMINATION: XR FOOT, [...] 02/06/25 1303 DD/ 1155 TD/TT: 02/06/25 1200 Staff Research Associate: Procedure Note Donotuseinterpreter, Image - 02/06/[address] [address] XRay Report Signed Patient: Randi BhardwajR#: [id number] : 1970Acct:[id number] Age/Sex: 55 / FADM Date: 02/06/25 [facility] Dr: Judy Galvan MD Ordering Physician: Judy Galvan MD Date of Service: 02/06/25 Procedure(s): XR foot LT min 3V Accession Number(s): [id number] cc: Judy Galvan MD EXAMINATION: XR FOOT, [...] 02/06/25 1303 DD/ 1155 TD/TT: 02/06/25 1200 Staff Research Associate: Judy Galvan MD IMG XR PROCEDURES Edited Result - Final * (ABNORMAL) Lipid Panel, Standard (11/10/2024 9:20 PM EDT) Triglycerides 88 <150 mg/dL [facility] Comment:Desirable Triglyceri de: less than 150 mg/dLBorderline High Triglyceride 150-199 mg/dLHigh Triglyceride: 200-499 mg/dLVery High Triglyceride: greater than or equal to 5OO mg/dL Cholesterol 212(H) <200 mg/dL [facility] Comment:Desirable Cholestero l: less than 200 mg/dLBorderline High Cholesterol: 200-239 mg/dLHigh Cholesterol: greater than 239 mg/dL LDL Cholesterol Calculated 95 <100 mg/dL [facility] Comment:Desirable LDL: less than 100 mg/dLNear Optimal/Above Optimal LDL: 110- 129 mg/dLBorderline High LDL: 130-159 mg/dLHigh LDL: 160-189 mg/dLVery High LDL: greater than or equal to 190 mg/dL HDL Cholesterol 100 >40 mg/dL [facility] Comment:Desirable HDL: great er than 40 mg/dL Note: This HDL assay may give artificially low results in patients with liver disease. 11/10/2024 9:20 PM EDT 11/10/2024 9:22 PM EDT us Generic External Data Provider LAB BLOOD ORDERAB LES Final Result [facility] [address] [place] [address] [phone] * BI Mammogram Screening Tomosynthesis Bilateral (07/27/2023 11:27 AM EST) Anatomical Region Laterality Modality Breast Bilateral Mammography 07/27/2023 11:2 7 AM EST Narrative 08/14/2023 4:56 PM EST [address] [place] [address] Mammography Report Signed Patient: Elza Bhardwaj MR#: [id number] : 1970 Acct:[id number] Age/Sex: 53 / F ADM Date: 07/27/23 Loc: HO.MAMMO Attending Dr: Judy Galvan MD Ordering Physician: Judy Galvan MD Results: 1Ne gative Date of Service: 07/27/23 Follow Up: 1 Year From Orig ina Mammogram Procedure(s): MM tomosynthesis screening BI Accession Number(s): [id number] cc: Judy Galvan MD EXAMINATION: MM SCREENING [...] in OV> 08/14/23 1652 DD/ 1127 TD/TT: Staff Research Associate: Procedure Note Donotuseinterpreter, Image - 08/14/2023 Renetta [facility] [address] [place], [place] [address] Mammography Report Signed Patient: Marvin Bhardwaj#: [id number] : 1970Acct:[id number] Age/Sex: 53 / FADM Date: 07/27/23 Loc: CAREN Attending Dr: Judy Galvan MD Ordering Physician: Judy Galvan MDResults: 1Ne gative Date of Service: 07/27/23Follow Up: 1 Year From Orig inal Mammogram Procedure(s): MM tomosynthesis screening BI Accession Number(s): [id number] cc: Judy Galvan MD EXAMINATION: MM SCREENING [...] in OV> 08/14/23 1652 DD/ 1127 TD/TT: Staff Research Associate: us Judy Galvan MD IMG BI PROCEDURES Final Result * HEPATITIS C AB W/REFL TO HCV RNA, QN, PCR (03/04/2021 10:50 AM EDT) HEPATITIS C ANTIBODY NON-REACT GIULIANO NON-REACT GIULIANO [facility] INDEX 0.03 <1.00 [facility] Comment: HCV antibody was non-reactive. There is no laboratory evidence of HCV infection. In most cases, no further action is required. However, if recent HCV exposure is suspected, a test for HCV RNA (test code 95928) is suggested. For additional information please refer to http://education.OMsignal/faq/AWH08y4 (This link is being provided for informational/ educational purposes only.) 03/04/2021 10:5 0 AM EDT Saran Elise MD HISTORICAL/NON ORDERABLE LAB S Final Result [facility] [address] * Hm Colonoscopy (12/08/2020 2:43 PM EDT) Historical Provider HEALTH MAINTENANCE Final Result * HPV E6/E7 RFLX [place] 16 18/45 (07/29/2020 10:17 AM EST) HPV 16 RNA [facility] HPV 18/45 RNA [facility] HPV E6 E7 ADD [facility] HPV mRNA E6/E7 rflx Not Detected Not Detected [facility] Comment: This test was performed using the APTIMA HPV Assay ([employer] This assay detects E6/E7 viral messenger RNA (mRNA) from 14 high-risk HPV types (16,18,31,33,35,39,45,51,52,56,58,59,66,68). The analytical performance characteristics of this assay have been determined by [employer]. The modifications have not been cleared or approved by the FDA. This assay has been validated pursuant to the CLIA regulations and is used for clinical purposes. THIS TEST WAS PERFORMED AT: [facility] [address] [facility] [address] [facility] [address] AVIS PARKER MD 07/29/2020 10:1 7 AM EST us Juan Jose Gill MD HISTORICAL/NON ORDERABLE LABS Fi nal Result [facility] [address] from Last 3 Months or Most Recently Relevant to Health Maintenance [facility] Care Teams Eye Clinic Manager Relationship Specialty Start Date End Date Judy Galvan MD [address] [place] [phone] PCP - General Family Medicine 07/22/18
--- OUTSIDE RECORDS SUMMARY | 2025-03-31 17:17 | XMS_ITS ---
Author Organization [employer] Address [address] [place] [address] 7 [place] [address] Care Team Providers Care Vacation Sales Advisor Name Role Phone Judy Galvan MD Primary Care Provider + CHW Complex Status:Enrolled (Active) Start date:11/11/2024 Enrollment date:12/24/2024 Enrollment reason:ADT Feed Overview ED- Pt went to [facility] ED on 11/10/24. Case Team Name Relationship Phone Iliana Rae(Responsible Staff) [phone] Continued Care and Services Coordination
--- OUTSIDE RECORDS SUMMARY | 2025-03-31 17:18 | XMS_ITS | Encounter Summary ---
Author Organization [employer] Address 75 [facility] 7 [place] [address] Care Team Providers Care Rubber Boots And Shoes Repairer Name Role Phone Judy Galvan MD Primary Care Provider + Reason for Visit * Reason Onset Date Comments Appointment Request 03/10/2025 Encounter Details Date Type Department Care Team ([facility] st Contact Info) Description 03/10/2025 Telephone [facility] MEDICINE [address] [place], [place] [phone] Judy Galvan MD [address] [place], [place] [phone] Appointment Request Social History Tobacco Use Types [...] encounter Miscellaneous Notes * Telephone Encounter - oMises Méndez - 03/10/2025 1:13 PM EDT TC from pt wanting to schedule nutrition apptmnt documented in this encounter Plan of Treatment Upcoming Encounters Date Type Department Care Team (Late st Contact Info) Description 04/14/2025 1:00 PM EDT Nutrition [facility] DIABETES/NUTRITION [address] [place] [address] [place], [place] [phone] 05/27/2025 10:00 AM EST Office Visit [facility] OPTOMETRY [address] [place] [address] Liliya Sims, OD [address] [place] [address] documented as of this encounter Visit Diagnoses Not on filedocumented in this encounter Additional Health Concerns Assessment Noted Time PHQ-9 Depression Total Score: 6 12/26/19 25 10:31 AM EDT documented as of this encounter Care Teams Rubber Boots And Shoes Repairer Relationship Specialty Start Date End Date Judy Galvan MD [address] [place] [address] PCP - General Family Medicine 07/22/18 documented as of this encounter
--- OUTSIDE RECORDS SUMMARY | 2025-03-31 17:18 | XMS_ITS | Encounter Summary ---
Author Organization [employer] Address 75 [facility] 7t [place] [address] Care Team Providers Care Jewel Setter Name Role Phone Judy Galvan MD Primary Care Provider + Reason for Visit * Reason Comments Med Refill Encounter Details Date Type Department Care Team ([facility] st Contact Info) Description 08/17/2023 Refill [facility] MEDICINE [address] [place], [place] [phone] Judy Galvan MD [address] [place], [place] [phone] Asthma, unspecified asthma severity, unspecified whether complicated, [...] Info) Description 04/14/2025 1:00 PM EDT Nutrition [facility] DIABETES/NUTRITION [address] [place] [address] [place] [address] 05/27/2025 10:00 AM EST Office Visit [facility] OPTOMETRY [address] [place], [place] [phone] Liliya Sims, FLAQUITA [address] [place] [address] documented as of this encounter Visit Diagnoses Diagnosis Asthma, unspecified asthma severity, unspecified whether complicated, unspecified whether persistent documented in this encounter Additional Health Concerns Assessment Noted Time PHQ-9 Depression Total Score: 0 06/26/20 23 9:44 AM EST documented as of this encounter Care Teams Jewel Setter Relationship Specialty Start Date End Date Judy Galvan MD [address] [place] [address] PCP - General Family Medicine 07/22/18 Anya Curry Wheel Aligner 08/29/23 11/27/23 documented as of this encounter
--- OUTSIDE RECORDS SUMMARY | 2025-03-31 17:18 | XMS_ITS | Encounter Summary ---
Author Organization [employer] Address 75 [facility] 7t [place] [address] Care Team Providers Care Statistical Methods Teacher Name Role Phone Judy Galvan MD Primary Care Provider + Encounter Details Date Type Department Care Team (Late st Contact Info) Description 11/26/2023 Orders Only [facility] MEDICINE [address] [place] [address] Provider, MD Kirstin Social History Tobacco Use [...] is your housing situation today? I have [place] p[place] 05/01/[address] you [...] Info) Description 04/14/2025 1:00 PM EDT Nutrition [facility] DIABETES/NUTRITION [address] [place] [address] [place] [address] 05/27/2025 10:00 AM EST Office Visit [facility] OPTOMETRY [address] [place] [address] Liliya Sims, OD [address] [place] [address] documented as of this encounter Procedures Procedure [...] documented as of this encounter Care Teams Statistical Methods Teacher Relationship Specialty Start Date End Date Judy Galvan MD 230 [place] [address] PCP - General Family Medicine 07/22/18 Anya Curry Brick Picker 08/29/23 11/27/23 documented as of this encounter
--- OUTSIDE RECORDS SUMMARY | 2025-03-31 17:18 | XMS_ITS | Encounter Summary ---
Author Organization [employer] Address 75 [facility] 7t [place] [address] Care Team Providers Care Land Development Project Manager Name Role Phone Judy Galvan MD Primary Care Provider + Encounter Details Date Type Department Care Team (Late st Contact Info) Description 11/12/2024 Orders Only [facility] WALK-IN CENTER [address] [place], [place] [phone] Judy Galvan MD [address] [place], [place] [phone] Social History Tobacco Use Types Packs/Day Years [...] 04/14/2025 1:00 PM EDT Nutrition [facility] DIABETES/NUTRITION [address] [place] [address] [place] [address] 05/27/2025 10:00 AM EST Office Visit [facility] OPTOMETRY [address] [place] [address] Levi, Liliya, OD [address] [place] [address] documented as of this encounter Visit Diagnoses Not on filedocumented in this encounter Additional Health Concerns Assessment Noted Time PHQ-9 Depression Total Score: 0 06/26/20 23 9:44 AM EST documented as of this encounter Care Teams Land Development Project Manager Relationship Specialty Start Date End Date Judy Galvan MD [address] [place] [address] PCP - General Family Medicine 07/22/18 documented as of this encounter
--- OUTSIDE RECORDS SUMMARY | 2025-03-31 17:18 | XMS_ITS | Encounter Summary ---
Author Organization [employer] Address 75 [facility] 7t [place] [address] Care Team Providers Care Family Service Counselor Name Role Phone Judy Galvan MD Primary Care Provider + Reason for Visit * Reason Comments Med Refill Encounter Details Date Type Department Care Team ([facility] st Contact Info) Description 08/10/2023 Refill [facility] MEDICINE [address] [place], [place] [phone] Judy Galvan MD [address] [place], [place] [phone] PUD (peptic ulcer disease) Social History Tobacco [...] Info) Description 04/14/2025 1:00 PM EDT Nutrition [facility] DIABETES/NUTRITION [address] [place] [address] [place] [address] 05/27/2025 10:00 AM EST Office Visit [facility] OPTOMETRY [address] [place] [address] Levi, Liilya, OD [address] [place] [address] documented as of this encounter Visit Diagnoses Diagnosis PUD (peptic ulcer disease) Peptic ulcer, unspecified site, unspecified as acute or chronic, without mention of hemorrhage, perforation, or obstruction documented in this encounter Additional Health Concerns Assessment Noted Time PHQ-9 Depression Total Score: 0 06/26/20 23 9:44 AM EST documented as of this encounter Care Teams Family Service Counselor Relationship Specialty Start Date End Date Judy Galvan MD [address] [place] [address] PCP - General Family Medicine 07/22/18 Anya Curry Hybrid Derivatives Trader 08/29/23 11/27/23 documented as of this encounter
--- OUTSIDE RECORDS SUMMARY | 2025-03-31 17:18 | XMS_ITS | Clinical Summary ---
Author Organization [facility] Address [address] [place] [address] Care Team Providers Care Labor Relations Manager Name Role Phone Judy Galvan MD Primary Care Provider [phone] Surgical History Surgery Date Site/Laterality Comments TUBAL [...] complete this topic RSV Immunization Patients Un asmi 20 months Aged Out No longer eligible b ased on patient's age to complete this topic Varicella Vaccines Aged Out No longer eligible based on patient's age to complete this topic Care Teams Labor Relations Manager Relationship Specialty Start Date End Date Juyd Galvan MD [address] [place] [phone] PCP - General 11/28/22
--- OUTSIDE RECORDS SUMMARY | 2025-03-31 17:18 | XMS_ITS | Encounter Summary ---
Author Organization [employer] Address 75 [facility] 7t [place] [address] Care Team Providers Care Rubber Boots And Shoes Repairer Name Role Phone Judy Galvan MD Primary Care Provider + Reason for Visit * Reason Comments Med Refill Encounter Details Date Type Department Care Team ([facility] st Contact Info) Description 11/29/2024 Refill [facility] MEDICINE [address] [place], [place] [phone] Judy Galvan MD [address] [place], [place] [phone] Social History Tobacco Use Types Packs/Day Years [...] [facility] DI[facility]ITION [address] [place] [address] [place] [address] 05/27/2025 10:00 AM EST Office Visit [facility] OPTOMETRY [address] [place] [address] Levi, Liliya, OD [address] [place] [address] documented as of this encounter Visit Diagnoses Not on filedocumented in this encounter Additional Health Concerns Assessment Noted Time PHQ-9 Depression Total Score: 7 11/19/19 25 1:52 PM EDT documented as of this encounter Care Teams Rubber Boots And Shoes Repairer Relationship Specialty Start Date End Date Judy Galvan MD [address] [place] [address] PCP - General Family Medicine 07/22/18 documented as of this encounter
== END 2025-03-31 14:20 | disposition home or self-care (01) ==
LOC: HO.HGI 13:21
PROVIDERS: Visit Provider Nurse Practitioner Family
DX: K21.9 Gastro-esophageal reflux disease without esophagitis (principal); K76.0 Fatty (change of) liver, not elsewhere classified; E66.01 Morbid (severe) obesity due to excess calories
CPT/HCPCS: 99214

== ENCOUNTER 2025-03-31 13:21 | Outpatient (REF) | payer MEDICAID, SELFPAY ==
[2025-04-09 07:13] LABS: FIB-ALT 20 U/L (6-29); FIB-Alpha-2-Macroglobulin 200 mg/dL (106-279); FIB-Apolipoprotein A1 284 mg/dL (101-198); FIB-GGT 31 U/L (3-70); FIB-Haptoglobin 242 mg/dL (43-212); FIB-Total Bilirubin 0.4 mg/dL (0.2-1.2); Liver Fibrosis Score 0.03; Liver Fibrosis Stage F0; Nec Inflam Act Grade A0; Nec Inflam Act Score 0.05
== END 2025-03-31 13:22 | disposition home or self-care (01) ==
LOC: HO.LAB 13:21
PROVIDERS: PCP Internal Medicine; Visit Provider Nurse Practitioner Family
DX: K21.9 Gastro-esophageal reflux disease without esophagitis (principal); K52.9 Noninfective gastroenteritis and colitis, unspecified; K76.0 Fatty (change of) liver, not elsewhere classified; E66.01 Morbid (severe) obesity due to excess calories; R74.01 Elevation of levels of liver transaminase levels
CPT/HCPCS: 36415; 81596; 99212

== ENCOUNTER 2025-04-02 10:01 | Outpatient (REF) | payer MEDICAID, SELFPAY ==
--- NOTE | ~2025-04-02 | US_ITS ---
EXAMINATION: US ABDOMEN COMPLETE WITH LIVER ELASTOGRAPHY HISTORY: FATTY LIVER, LUQ PAIN TECHNIQUE: Real-time grayscale ultrasound imaging of the abdomen was performed and images were reviewed. COMPARISON: Comparison is made with the prior examination dated 03/27/2024. FINDINGS: Liver: The right lobe of the liver measures 15.0 cm in size. The left lobe of the liver measures 10.7 cm in size. The liver demonstrates increased echotexture, consistent with steatosis. No focal mass or intrahepatic biliary ductal dilatation is identified. There is normal hepatopedal flow in the portal vein. Ultrasound elastography of the liver was performed with 10 separate measurements of the liver parenchyma with the patient in the supine position. Measurements were obtained approximately 2 cm below Era's capsule and perpendicular to the capsule. The median shear wave velocity is 1.77 m/s (previously 2.08 m/s). The interquartile range/median (IQR/median) is 0.14. Gallbladder and biliary tree: The gallbladder is surgically absent. The common bile duct measures 8 mm diameter, likely within normal limits for a patient status post cholecystectomy. Kidneys: The right kidney measures 12.7 cm in length. The left kidney measures 13.2 cm in length. The kidneys are unremarkable, without evidence of masses, hydronephrosis, or calculi. Pancreas: The pancreatic head, neck, and body are unremarkable. The pancreatic tail is obscured by bowel gas. Spleen: The spleen is normal in size and contour, measuring 10.5 cm in length. Abdominal aorta and inferior vena cava: The visualized portions of the abdominal aorta and inferior vena cava are normal in caliber. There is no free fluid in the abdomen. US/US abdomen comp w elastography IMPRESSION: Hepatic steatosis. The median shear wave velocity in the liver is 1.77 m/s, corresponding to a median liver stiffness of 9.87 kPa. The IQR/median value is 0.14. This is indicative of a quality data set. Findings are indicative of a high elastography value suggestive of compensated advanced chronic liver disease. REFERENCE: Society of Radiologists in Ultrasound Liver Stiffness Thresholds (2019): LIVER STIFFNESS THRESHOLDS: *Shear wave velocity less than 1.3 m/s (Liver Stiffness equal or less than 5 kPa): High probability of being normal. *Shear wave velocity less than 1.7 m/s (Liver Stiffness less than 9 kPa): In the absence of other known clinical signs, rules out compensated advanced chronic liver disease. *Shear wave velocity between 1.7-2.1 m/s (Liver Stiffness 9-13 kPa): Suggestive of compensated advanced chronic liver disease but need further test for confirmation. *Shear wave velocity between 2.1-2.4 m/s (Liver Stiffness 13-17 kPa): Rules in compensated advanced chronic liver disease. *Shear wave velocity greater than 2.4 m/s (Liver Stiffness over 17 kPa): Suggestive of clinically significant portal hypertension. QUALITY OF DATA SET: *IQR/Median value equal or less than 0.15 implies a quality data set. *IQR/Median value over 0.15 implies a poor quality data set. SIGNIFICANT CHANGE FROM PRIOR EXAM: Significant change if liver stiffness measurement is 10% or greater from prior exam. OTHER CONSIDERATIONS: The stage of liver fibrosis may be overestimated in the setting of acute hepatitis, liver inflammation, elevated liver function tests, hepatic vascular congestion, obstructive cholestasis, non-fasting state, and infiltrative diseases such as amyloidosis and lymphoma. In some patients with NAFLD, the liver stiffness thresholds for compensated advanced chronic liver disease may be lower. In causes other than viral hepatitis and NAFLD, liver stiffness thresholds are not well established. Electronically signed by: João Briones MD 04/02/2025 11:28 AM EDT
--- OUTSIDE RECORDS SUMMARY | 2025-04-02 11:49 | XMS_ITS | Encounter Summary ---
Author Organization [employer] Address 75 [facility] 7t [place] [address] Care Team Providers Care Lockstitch Waistline Joiner Name Role Phone Judy Galvan MD Primary Care Provider + Reason for Visit * Reason Comments Med Refill Encounter Details Date Type Department Care Team ([facility] st Contact Info) Description 08/17/[address] [facility] MEDICINE [address] [place], [place] [phone] Judy Galvan MD [address] [place], [place] [phone] Asthma, unspecified asthma severity, unspecified whether complicated, [...] [facility] DIABETES/NUTRITION [address] [place] [address] [place] [address] 05/27/2025 10:00 AM EST Office Visit [facility] OPTOMETRY [address] [place], [place] [phone] Liliya Sims, FLAQUITA [address] [place] [address] documented as of this encounter Visit Diagnoses Diagnosis Asthma, unspecified asthma severity, unspecified whether complicated, unspecified whether persistent documented in this encounter Additional Health Concerns Assessment Noted Time PHQ-9 Depression Total Score: 0 06/26/20 23 9:44 AM EST documented as of this encounter Care Teams Lockstitch Waistline Joiner Relationship Specialty Start Date End Date Judy Galvan MD [address] [place] [address] PCP - General Family Medicine 07/22/18 Anya Curry Pens And Pencils Dipper 08/29/23 11/27/23 documented as of this encounter
--- OUTSIDE RECORDS SUMMARY | 2025-04-02 11:49 | XMS_ITS | Encounter Summary ---
Author Organization [employer] Address [address] [place] [address] 7 [place] [address] Care Team Providers Care Tacking Stitch Remover Name Role Phone Judy Galvan MD Primary Care Provider + Encounter Details Date Type Department Care Team ([facility] Contact Info) Description 01/02/2023 Abstract [facility] MEDICINE [address] [place], [place] [phone] Judy Galvan MD 230 [place], [place] [phone] Social History Tobacco Use Types Packs/Day Years [...] Info) Description 04/14/2025 1:00 PM EDT Nutrition [facility] DIABETES/NUTRITION [address] [place], [place] [phone] Haley Vargas, ANDREW [address] [place] [address] 05/27/2025 10:00 AM EST Office Visit [facility] OPTOMETRY [address] [place], [place] [phone] Liliya Sims, OD [address] [place] [address] documented as of this encounter Visit Diagnoses Not on filedocumented in this encounter Additional Health Concerns Assessment Noted Time PHQ-9 Depression Total Score: 10 023 3:27 PM EDT documented as of this encounter Care Teams Tacking Stitch Remover Relationship Specialty Start Date End Date Judy Galvan MD [address] [place] [address] PCP - General Family Medicine 07/22/18 Anya Curry Parts Administrator 08/29/23 11/27/23 documented as of this encounter
--- OUTSIDE RECORDS SUMMARY | 2025-04-02 11:49 | XMS_ITS ---
Author Organization [employer] Address [address] [place] [address] 7 [place] [address] Care Team Providers Care Jewelry Drilling Machine Operator Name Role Phone Judy Galvan MD Primary Care Provider + CM Complex Status:Enrolled (Active) Start date:11/11/2024 Enrollment date:12/25/2024 Enrollment reason:ADT Feed Overview ED- Pt went to [facility] ED on 11/10/24. Case Team Name Relationship Phone Ranjit Stallings RN(Responsible Staff) Registered Elsi bar [phone] Continued Care and Services Coordination
--- OUTSIDE RECORDS SUMMARY | 2025-04-02 11:49 | XMS_ITS | Encounter Summary ---
Author Organization [employer] Address [address] [facility] 7t [place] [address] Care Team Providers Care Resource Specialist Name Role Phone Judy Galvan MD Primary Care Provider + Encounter Details Date Type Department Care Team (Late st Contact Info) Description 11/26/2023 Orders Only [facility] MEDICINE [address] [place] [address] Provider, MD Kirstin Social History Tobacco Use [...] Info) Description 04/14/2025 1:00 PM EDT Nutrition [facility] DIABETES/NUTRITION [address] [place] [address] [place] [address] 05/27/2025 10:00 AM EST Office Visit [facility] OPTOMETRY [address] [place] [address] Liliya Sims, OD [address] [place] [address] documented as of this encounter Procedures Procedure [...] documented as of this encounter Care Teams Resource Specialist Relationship Specialty Start Date End Date Judy Galvan MD [address] [place] [address] PCP - General Family Medicine 07/22/18 Anya Curry Process Camera Operator 08/29/23 11/27/23 documented as of this encounter
--- OUTSIDE RECORDS SUMMARY | 2025-04-02 11:49 | XMS_ITS | Clinical Summary ---
Author Organization [facility] ity Address [address] [place] [address] Care Team Providers Care Rating Examiner Name Role Phone Judy Galvan MD Primary Care Provider [phone] Surgical History Surgery Date Site/Laterality Comments TUBAL [...] 5 season) 2025 Influenza Vaccine (#1) 2025 RSV Immunization Adult Patie nts (1 - 1-dose 75+ series) 2045 HIB Vaccines Aged Out No longer eligi [...] age to complete this topic Care Teams Rating Examiner Relationship Specialty Start Date End Date Judy Galvan MD [address] [place] [phone] PCP - General 11/28/22
--- OUTSIDE RECORDS SUMMARY | 2025-04-02 11:49 | XMS_ITS ---
Author Organization [employer] Address [address] [place] [address] 7 [place] [address] Care Team Providers Care Film Developer Name Role Phone Judy Galvan MD Primary Care Provider + CHW Complex Status:Enrolled (Active) Start date:11/11/2024 Enrollment date:12/24/2024 Enrollment reason:ADT Feed Overview ED- Pt went to [facility] ED on 11/10/24. Case Team Name Relationship Phone Iliana Rae(Responsible Staff) [phone] Continued Care and Services Coordination
--- OUTSIDE RECORDS SUMMARY | 2025-04-02 11:49 | XMS_ITS | Encounter Summary ---
Author Organization [employer] Address [address] [place] [address] 7 [place] [address] Care Team Providers Care Solar Project Coordination Specialist Name Role Phone Judy Galvan MD Primary Care Provider + Encounter Details Date Type Department Care Team (Latest Contact Info) Description 03/05/2019 Abstract [facility] CONVERSIONS Dental, Provider, DDS Social History [...] 04/14/2025 1:00 PM EDT Nutrition [facility] DIABETES/NUTRITION [address] [place] [address] [place] [address] 05/27/2025 10:00 AM EST Office Visit [facility] OPTOMETRY [address] [place] [address] Levi, Liliya, OD [address] [place] [address] documented as of this encounter Visit Diagnoses Not on filedocumented in this encounter Care Teams Solar Project Coordination Specialist Relationship Specialty Start Date End Date Judy Galvan MD [address] [place] [address] PCP - General Family Medicine 07/22/18 Anya Curry Clinical Staff Anesthesiologist 08/29/23 11/27/23 documented as of this encounter
--- OUTSIDE RECORDS SUMMARY | 2025-04-02 11:49 | XMS_ITS | Clinical Summary ---
Author Organization [employer] Address [address] [place] [address] 7t [place] [address] Care Team Providers Care Supervisor [employer] Furniture Fab[employer]ation Name Role Phone Judy Galvan MD Primary [...] Resolved, s/p TH + BSO. Fu with [facility] oncology. Obtain report of surgical biopsy. Assessment & Plan (05/29/2024 1:51 PM EST): Seen by Dr. Neal xxx [facility] in the past, she will have a [...] to diagnosis of EIN. Fu closely with [facility]. Myalgia 03/02/2023 Well woman exam 03/02/2023 TMJ [...] US ) liver elastography on 03/27/24 ([facility]) showed measurements are consistent with a moderate [...] at least . [facility]. Moderate persistent asthma without complication 07/22/2018 [...] exercise. Pt will continue to fu with tabulating machine mechanic at [facility] weight management program and with provider regarding medication management. Assessment & Plan (05/29/2024 1:53 PM EST): Discussed re weight reduction options including exercise, life style modifications, diet and referral to employment specialist/program manager. Recommended to decrease soda and sugary beverage consumption, increase protein intake with meals (at least 1 portion of protein with each meal) to assist with satiety, increase dietary fiber Recommended at least 150 min/week of moderate intensity exercise. Fu weight management program at [facility]. Resolved Problems Problem Noted Date Diagnosed Date [...] Provider, Generic External Data 03/20/2025 Patient Outreach [address] [address] Judy Galvan MD Care Management (C3- F/U call # 4) 03/12/[address] [address] Judy Galvan MD Referral 03/10/[address] [address] Judy Galvan MD Appointment Request 02/26/2025 Patient Outreach [address] [address] Judy Galvan MD Care Coordination (C3 -[facility] telephone call outreach) 02/24/2025 Patient Outreach [address] [address] Judy Galvan MD Care Management (C3- F/U call # 3) 02/13/2025 Patient Outreach [address] [address] Judy Galvan MD Care Management (C3- F/U call # 2) 02/12/2025 Patient Outreach [address] [address] Judy Galvan MD Care Coordination (C3 CM- [facility] telephone call outreach) 02/06/2025 11:45 AM EDT Office Visit [address] [address] Judy Galvan MD Nummular dermatitis (Primary Dx); Plantar fasciitis of left foot; Class 3 severe obesity due to excess calories with serious comorbidity and body mass index (BMI) of 45.0 to 49.9 in adult; Cerebellar cyst; Contusion of left chest wall, subsequent encounter; LUQ pain; SOB (shortness of breath) 02/06/2025 Results Follow-Up [address] [address] Judy Galvan MD XR Foot 3+ Views Left 02/05/2025 Travel 02/04/[address] [phone] Judy Galvan MD Chart Prep 01/29/2025 Patient Outreach [address] [phone] Judy Galvan MD Pre-visit Planning (SDOH screening completed on 12/24/2024) 01/12/2025 Patient Outreach [address] [address] Judy Galvan MD Care Management (C3- F/U call # 1) 01/07/2025 Patient Outreach [address] [address] Judy Galvan MD from Last 3 Months Immunizations Immunization Administration [...] Nutrition [facility] DIABETES/NUTRITION [address] [place] [address] Haley Vargas, RD 230 [place] [address] 05/27/2025 10:00 AM EST Office Visit [facility] OPTOMETRY [address] [place] [address] Levi, Liliya, OD [address] [place] [address] Health Maintenance Due Date Last Done Comments [...] Procedure Name Priority Date/Time Associated Diagnosis Comments US ABDOMEN COMPLETE WITH ELASTOGRAPHY Routine 04/02/2025 10:45 AM EDT HEPATIC FUNCTION PANEL Routine 12:21 PM EDT [...] Recently Relevant to Health Maintenance Results * US Abdomen Comp w elastography (04/02/2025 10:45 AM EDT) Anatomical Region Laterality Modality Abdomen Ultrasound 04/02/2025 10:4 5 AM EDT Narrative 04/02/2025 11:30 AM EDT [place] [address] Ultrasound Report Signed Patient: Elza Bhardwaj MR#: [id number] : 1970 Acct:[id number] Age/Sex: 55 / F ADM Date: 04/02/25 Loc: HO.US Attending Dr: Judy Galvan MD Ordering Physician: Stacey [facility] Date of Service: 04/02/25 Procedure(s): US abdomen comp w elastography Accession Number(s): [id number] cc: Judy Galvan MD; Stacey Clark [facility] Reason for Exam: FATTY LIVER, LUQ PAIN EXAMINATION: US ABDOMEN COMPLETE WITH LIVER ELASTOGRAPHY HISTORY: FATTY LIVER, LUQ PAIN TECHNIQUE: Real-time grayscale ultrasound imaging of the abdomen was performed and images were reviewed. COMPARISON: Comparison is made with the prior examination dated 03/27/2024. FINDINGS: Liver: The right lobe of the liver measures 15.0 cm in size. The left lobe of the liver measures 10.7 cm in size. The liver demonstrates increased echotexture, consistent with steatosis. No focal mass or intrahepatic biliary ductal dilatation is identified. There is normal hepatopedal flow in the portal vein. Ultrasound elastography of the liver was performed with 10 separate measurements of the liver parenchyma with the patient in the supine position. Measurements were obtained approximately 2 cm below Era's capsule and perpendicular to the capsule. The median shear wave velocity is 1.77 m/s (previously 2.08 m/s). The interquartile range/median (IQR/median) is 0.14. Gallbladder and biliary tree: The gallbladder is surgically absent. The common bile duct measures 8 mm diameter, likely within normal limits for a patient status post cholecystectomy. Kidneys: The right kidney measures 12.7 cm in length. The left kidney measures 13.2 cm in length. The kidneys are unremarkable, without evidence of masses, hydronephrosis, or calculi. Pancreas: The pancreatic head, neck, and body are unremarkable. The pancreatic tail is obscured by bowel gas. Spleen: The spleen is normal in size and contour, measuring 10.5 cm in length. Abdominal aorta and inferior vena cava: The visualized portions of the abdominal aorta and inferior vena cava are normal in caliber. There is no free fluid in the abdomen. US/US abdomen comp w elastography IMPRESSION: Hepatic steatosis. The median shear wave velocity in the liver is 1.77 m/s, corresponding to a median liver stiffness of 9.87 kPa. The IQR/median value is 0.14. This is indicative of a quality data set. Findings are indicative of a high elastography value suggestive of compensated advanced chronic liver disease. REFERENCE: Society of Radiologists in Ultrasound Liver Stiffness Thresholds (2020): LIVER STIFFNESS THRESHOLDS: *Shear wave velocity less than 1.3 m/s (Liver Stiffness equal or less than 5 kPa): High probability of being normal. *Shear wave velocity less than 1.7 m/s (Liver Stiffness less than 9 kPa): In the absence of other known clinical signs, rules out compensated advanced chronic liver disease. *Shear wave velocity between 1.7-2.1 m/s (Liver Stiffness 9-13 kPa): Suggestive of compensated advanced chronic liver disease but need further test for confirmation. *Shear wave velocity between 2.1-2.4 m/s (Liver Stiffness 13-17 kPa): Rules in compensated advanced chronic liver disease. *Shear wave velocity greater than 2.4 m/s (Liver Stiffness over 17 kPa): Suggestive of clinically significant portal hypertension. QUALITY OF DATA SET: *IQR/Median value equal or less than 0.15 implies a quality data set. *IQR/Median value over 0.15 implies a poor quality data set. SIGNIFICANT CHANGE FROM PRIOR EXAM: Significant change if liver stiffness measurement is 10% or greater from prior exam. OTHER CONSIDERATIONS: The stage of liver fibrosis may be overestimated in the setting of acute hepatitis, liver inflammation, elevated liver function tests, hepatic vascular congestion, obstructive cholestasis, non-fasting state, and infiltrative diseases such as amyloidosis and lymphoma. In some patients with NAFLD, the liver stiffness thresholds for compensated advanced chronic liver disease may be lower. In causes other than viral hepatitis and NAFLD, liver stiffness thresholds are not well established. Electronically signed by: João Briones MD 04/02/2025 11:28 AM EDT RP Dictated By: João Briones MD Signed By: <Electronically signed by João Briones MD in OV> 04/02/25 1128 DD/ 1045 TD/TT: 04/02/25 1059 Contract Forester: Procedure Note Donotuseinterpreter, Image - 04/02/2025 [place] [address] Ultrasound Report Signed Patient: Marvin Bhardwaj#: [id number] : 1970Acct:[id number] Age/Sex: 55 / FADM Date: 04/02/25 Loc: HO.US Attending Dr: Judy Galvan MD Ordering Physician: Stacey Clark Date of Service: 04/02/25 Procedure(s): US abdomen comp w elastography Accession Number(s): [id number] cc: Judy Galvan MD; Stacey Clark Reason for Exam: FATTY LIVER, LUQ PAIN EXAMINATION: US ABDOMEN COMPLETE WITH LIVER ELASTOGRAPHY HISTORY: FATTY LIVER, LUQ PAIN TECHNIQUE: Real-time grayscale ultrasound imaging of the abdomen was performed and images were reviewed. COMPARISON: Comparison is made with the prior examination dated 03/27/2024. FINDINGS: Liver: The right lobe of the liver measures 15.0 cm in size. The left lobe of the liver measures 10.7 cm in size. The liver demonstrates increased echotexture, consistent with steatosis. No focal mass or intrahepatic biliary ductal dilatation is identified. There is normal hepatopedal flow in the portal vein. Ultrasound elastography of the liver was performed with 10 separate measurements of the liver parenchyma with the patient in the supine position. Measurements were obtained approximately 2 cm below Era's capsule and perpendicular to the capsule. The median shear wave velocity is 1.77 m/s (previously 2.08 m/s). The interquartile range/median (IQR/median) is 0.14. Gallbladder and biliary tree: The gallbladder is surgically absent. The common bile duct measures 8 mm diameter, likely within normal limits for a patient status post cholecystectomy. Kidneys: The right kidney measures 12.7 cm in length. The left kidney measures 13.2 cm in length. The kidneys are unremarkable, without evidence of masses, hydronephrosis, or calculi. Pancreas: The pancreatic head, neck, and body are unremarkable. The pancreatic tail is obscured by bowel gas. Spleen: The spleen is normal in size and contour, measuring 10.5 cm in length. Abdominal aorta and inferior vena cava: The visualized portions of the abdominal aorta and inferior vena cava are normal in caliber. There is no free fluid in the abdomen. US/US abdomen comp w elastography IMPRESSION: Hepatic steatosis. The median shear wave velocity in the liver is 1.77 m/s, corresponding to a median liver stiffness of 9.87 kPa. The IQR/median value is 0.14. This is indicative of a quality data set. Findings are indicative of a high elastography value suggestive of compensated advanced chronic liver disease. REFERENCE: Society of Radiologists in Ultrasound Liver Stiffness Thresholds (2020): LIVER STIFFNESS THRESHOLDS: *Shear wave velocity less than 1.3 m/s (Liver Stiffness equal or less than 5 kPa): High probability of being normal. *Shear wave velocity less than 1.7 m/s (Liver Stiffness less than 9 kPa): In the absence of other known clinical signs, rules out compensated advanced chronic liver disease. *Shear wave velocity between 1.7-2.1 m/s (Liver Stiffness 9-13 kPa): Suggestive of compensated advanced chronic liver disease but need further test for confirmation. *Shear wave velocity between 2.1-2.4 m/s (Liver Stiffness 13-17 kPa): Rules in compensated advanced chronic liver disease. *Shear wave velocity greater than 2.4 m/s (Liver Stiffness over 17 kPa): Suggestive of clinically significant portal hypertension. QUALITY OF DATA SET: *IQR/Median value equal or less than 0.15 implies a quality data set. *IQR/Median value over 0.15 implies a poor quality data set. SIGNIFICANT CHANGE FROM PRIOR EXAM: Significant change if liver stiffness measurement is 10% or greater from prior exam. OTHER CONSIDERATIONS: The stage of liver fibrosis may be overestimated in the setting of acute hepatitis, liver inflammation, elevated liver function tests, hepatic vascular congestion, obstructive cholestasis, non-fasting state, and infiltrative diseases such as amyloidosis and lymphoma. In some patients with NAFLD, the liver stiffness thresholds for compensated advanced chronic liver disease may be lower. In causes other than viral hepatitis and NAFLD, liver stiffness thresholds are not well established. Electronically signed by: João Briones MD 04/02/2025 11:28 AM EDT Dictated By: João Briones MD Signed By: <Electronically signed by João Briones MD in OV> 04/02/25 1128 DD/ 1045 TD/TT: 04/02/25 1059 Contract Forester: us [facility] External Provider IMG US PROCEDURES Edited Result - Final * (ABNORMAL) Hepatic Function Panel (03/24/2025 12:21 PM EDT) Bilirubin, Total 0.5 0.0 - 1.0 mg/dL [facility] Bilirubin, Direct 0.2 0.0 - 0.5 mg/dL [facility] Aspartate Amino Transferase 30 5 - 31 U/L [facility] Alanine Aminotransferase 43(H) 0 - 31 U/L [facility] Total Protein 7.0 6.5 - 8.0 g/dL [facility] Albumin Level 4.3 3.5 - 5.0 g/dL [facility] Alkaline Phosphatase 97 39 - 117 U/L [facility] 03/24/2025 12:2 1 PM EDT 03/24/2025 12:21 PM EDT us Generic External Data Provider LAB BLOOD ORDERAB LES Final Result [facility] [address] [place] [phone] [phone] * XR Foot 3+ Views Left (02/06/2025 11:55 AM EDT) Anatomical Region Laterality Modality Lower Extremities, Foot Left Radiogra phic Imaging 02/06/2025 11:5 5 AM EDT Narrative 02/06/2025 1:05 PM EDT [facility] [address] [place] [address] XRay Report Signed Patient: Elza Bhardwaj MR#: [id number] : 1970 Acct:[id number] Age/Sex: 55 / F ADM Date: 02/06/25 [facility]: Judy Galvan MD Ordering Physician: Judy Galvan MD Date of Service: 02/06/25 Procedure(s): XR foot LT min 3V Accession Number(s): [id number] cc: Judy Galvan MD EXAMINATION: XR FOOT, [...] 02/06/25 1303 DD/ 1155 TD/TT: 02/06/25 1200 Contract Forester: Procedure Note Donotuseinterpreter, Image - 02/06/2025 [facility] [address] [place] [address] XRay Report Signed Patient: Marvin Bhardwaj#: [id number] : 1970Acct:[id number] Age/Sex: 55 / FADM Date: 02/06/25 Loc: HO.HHX Attending Dr: Judy Galvan MD Ordering Physician: Judy Galvan MD Date of Service: 02/06/25 Procedure(s): XR foot LT min 3V Accession Number(s): [id number] cc: Judy Galvan MD EXAMINATION: XR FOOT, [...] 02/06/25 1303 DD/ 1155 TD/TT: 02/06/25 1200 Contract Forester: Judy Galvan MD IMG XR PROCEDURES Edited Result - Final * (ABNORMAL) Lipid Panel, Standard (11/10/2024 9:20 PM EDT) Triglycerides 88 <150 mg/dL [facility] Comment:Desirable Triglyceri de: less than 150 mg/dLBorderline High Triglyceride 150-199 mg/dLHigh Triglyceride: 200-499 mg/dLVery High Triglyceride: greater than or equal to 5OO mg/dL Cholesterol 212(H) <200 mg/dL [facility] Comment:Desirable Cholestero l: less than 200 mg/dLBorderline High Cholesterol: 200-239 mg/dLHigh Cholesterol: greater than 239 mg/dL LDL Cholesterol Calculated 95 <100 mg/dL [facility] Comment:Desirable LDL: less than 100 mg/dLNear Optimal/Above Optimal LDL: 110- 129 mg/dLBorderline High LDL: 130-159 mg/dLHigh LDL: 160-189 mg/dLVery High LDL: greater than or equal to 190 mg/dL HDL Cholesterol 100 >40 mg/dL [facility] Comment:Desirable HDL: great er than 40 mg/dL Note: This HDL assay may give artificially low results in patients with liver disease. 11/10/2024 9:20 PM EDT 11/10/2024 9:22 PM EDT us Generic External Data Provider LAB BLOOD ORDERAB LES Final Result Performing Organization Address City/State/[facility] Co de Phone Number [facility] [address] [place] [phone] * BI Mammogram Screening Tomosynthesis Bilateral (07/27/2023 11:27 AM EST) Anatomical Region Laterality Modality Breast Bilateral Mammography 07/27/2023 11:2 7 AM EST Narrative 08/14/2023 4:56 PM EST [facility] [address] [place] [address] Mammography Report Signed Patient: Elza Bhardwaj MR#: [id number] : 1970 Acct:[id number] Age/Sex: 53 / F ADM Date: 07/27/23 Loc: HO.MAMMO Attending Dr: Judy Galvan MD Ordering Physician: Judy Galvan MD Results: 1Ne gative Date of Service: 07/27/23 Follow Up: 1 Year From Orig inal Mammogram Procedure(s): MM tomosynthesis screening BI Accession Number(s): [id number] cc: Judy Galvan MD EXAMINATION: MM SCREENING [...] in OV> 08/14/23 1652 DD/ 1127 TD/TT: Contract Forester: Procedure Note Donotuseinterpreter, Image - 08/14/2023 [facility] [address] [place] [address] Mammography Report Signed Patient: Marvin Bhardwaj#: [id number] : 1970Acct:[id number] Age/Sex: 53 / FADM Date: 07/27/23 Loc: CAREN Attending Dr: Judy Galvan MD Ordering Physician: Judy Galvan MDResults: 1Ne gative Date of Service: 07/27/23Follow Up: 1 Year From Orig inal Mammogram Procedure(s): MM tomosynthesis screening BI Accession Number(s): [id number] cc: Judy Galvan MD EXAMINATION: MM SCREENING DIGITAL BREAST TOMOSYNTHESIS, BILATERAL CLINICAL INFORMATION: Screening. Asymptomatic. COMPARISON: Mammography: This study is compared with prior exams dating back to 2018. TECHNIQUE: Digital breast tomosynthesis is performed in [...] in OV> 08/14/23 1652 DD/ 1127 TD/TT: Contract Forester: Judy Galvan MD IMG BI PROCEDURES Final Result * HEPATITIS C AB W/REFL TO HCV RNA, QN, PCR (03/04/2021 10:50 AM EDT) HEPATITIS C ANTIBODY NON-REACT GIULIANO NON-REACT GIULIANO [facility] INDEX 0.03 <1.00 [facility] Comment: HCV antibody was non-reactive. There is no laboratory evidence of HCV infection. In most cases, no further action is required. However, if recent HCV exposure is suspected, a test for HCV RNA (test code 77399) is suggested. For additional information please refer to http://education.UIEvolution.TestQuest/faq/IEE35k0 (This link is being provided for informational/ educational purposes only.) 03/04/2021 10:5 0 AM EDT Saran Elise MD HISTORICAL/NON ORDERABLE LAB S Final Result [facility] [address] * Hm Colonoscopy (12/08/2020 2:43 PM EDT) Historical Provider HEALTH MAINTENANCE Final Result * HPV E6/E7 RFLX IRVING 16 18/45 (07/29/2020 10:17 AM EST) HPV 16 RNA [facility] HPV 18/45 RNA [facility] HPV E6 E7 ADD [facility] HPV mRNA E6/E7 rflx Not Detected Not Detected [facility] Comment: This test was performed using the APTIMA HPV Assay ([employer] This assay detects E6/E7 viral messenger RNA (mRNA) from 14 high-risk HPV types (16,18,31,33,35,39,45,51,52,56,58,59,66,68). The analytical performance characteristics of this assay have been determined by [employer]. The modifications have not been cleared or approved by the FDA. This assay has been validated pursuant to the CLIA regulations and is used for clinical purposes. THIS TEST WAS PERFORMED AT: [facility] [address] [place] [address],[place] [address] AVIS PARKER MD 07/29/2020 10:1 7 AM EST Juan Jose Gill MD HISTORICAL/NON ORDERABLE LABS Fi nal Result [facility] [address] from Last 3 Months or Most Recently Relevant to Health Maintenance Insurance [facility] C3 Care Teams Supervisor [employer] Relationship Specialty Start Date End Date Judy Galvan MD [address] [place] [phone] PCP - General Family Medicine 07/22/18
--- OUTSIDE RECORDS SUMMARY | 2025-04-02 11:49 | XMS_ITS | Encounter Summary ---
Author Organization [employer] Address 75 [facility] 7t [place] [address] Care Team Providers Care Finish Repair Worker Name Role Phone Judy Galvan MD Primary Care Provider + Reason for Visit * Reason Comments Med Refill Encounter Details Date Type Department Care Team ([facility] st Contact Info) Description 11/29/2024 Refill [facility] MEDICINE [address] [place], [place] [phone] Judy Galvan MD 230 [place], [place] [phone] Social History Tobacco Use Types Packs/Day Years [...] Info) Description 04/14/2025 1:00 PM EDT Nutrition [facility] DIABETES/NUTRITION [address] [place] [address] [place] [address] 05/27/2025 10:00 AM EST Office Visit [facility] OPTOMETRY [address] [place] [address] Levi, Liliya, OD 230 [place] [address] documented as of this encounter Visit Diagnoses Not on filedocumented in this encounter Additional Health Concerns Assessment Noted Time PHQ-9 Depression Total Score: 7 11/19/19 25 1:52 PM EDT documented as of this encounter Care Teams Finish Repair Worker Relationship Specialty Start Date End Date Judy Galvan MD 230 [place] [address] PCP - General Family Medicine 07/22/18 documented as of this encounter
--- OUTSIDE RECORDS SUMMARY | 2025-04-02 11:49 | XMS_ITS | Encounter Summary ---
Author Organization [employer] Address 75 [facility] 7 [place] [address] Care Team Providers Care Monotype Operator Name Role Phone Judy Galvan MD Primary Care Provider + Reason for Visit * Reason Onset Date Comments Appointment Request 03/10/2025 Encounter Details Date Type Department Care Team ([facility] st Contact Info) Description 03/10/2025 Telephone [facility] MEDICINE 230 [place], [place] [phone] Judy Galvan MD 230 [place], [place] [phone] Appointment Request Social History Tobacco Use Types [...] EDT Nutrition [facility] DIABETES/NUTRITION 230 [place] [address] [place], [place] [phone] 05/27/2025 10:00 AM EST Office Visit [facility] OPTOMETRY [address] [place] [address] Liliya Sims, OD 230 [place] [address] documented as of this encounter Visit Diagnoses Not on filedocumented in this encounter Additional Health Concerns Assessment Noted Time PHQ-9 Depression Total Score: 6 12/26/19 25 10:31 AM EDT documented as of this encounter Care Teams Monotype Operator Relationship Specialty Start Date End Date Judy Galvan MD 230 [place] [address] PCP - General Family Medicine 07/22/18 documented as of this encounter
--- OUTSIDE RECORDS SUMMARY | 2025-04-02 11:49 | XMS_ITS | Encounter Summary ---
Author Organization [employer] Address 75 [facility] 7t [place] [address] Care Team Providers Care Casket Assembler Metal Name Role Phone Judy Galvan MD Primary Care Provider + Encounter Details Date Type Department Care Team (Late st Contact Info) Description 11/12/2024 Orders Only [facility]IN [facility] 230 [place], [place] [phone] Judy Galvan MD 230 [place], [place] [phone] Social History Tobacco Use Types Packs/Day Years [...] Info) Description 04/14/2025 1:00 PM EDT Nutrition [facility] DIABETES/NUTRITION 230 [place] [address] [place] [address] 05/27/2025 10:00 AM EST Office Visit [facility] OPTOMETRY [address] [place] [address] Levi, Liliya, OD 230 [place] [address] documented as of this encounter Visit Diagnoses Not on filedocumented in this encounter Additional Health Concerns Assessment Noted Time PHQ-9 Depression Total Score: 0 06/26/20 23 9:44 AM EST documented as of this encounter Care Teams Casket Assembler Metal Relationship Specialty Start Date End Date Judy Galvan MD 230 [place] [address] PCP - General Family Medicine 07/22/18 documented as of this encounter
--- OUTSIDE RECORDS SUMMARY | 2025-04-02 11:49 | XMS_ITS | Encounter Summary ---
Author Organization [employer] Address [address] [place] [address] [address] [place] [address] Care Team Providers Care Business Resiliency Manager Name Role Phone Judy Galvan MD Primary Care Provider + Reason for Visit * Reason Onset Date Comments Appointment Request 01/22/2023 Encounter Details Date Type Department Care Team ([facility] st Contact Info) Description 01/22/[address] [facility] MEDICINE 230 [place], [place] [phone] Judy Galvan MD 230 [place], [place] [phone] Appointment Request Social History Tobacco Use Types [...] on 12/14/2022 . Please contact pt at [phone] Tajik Speaker documented in this encounter Plan of Treatment Upcoming Encounters Date Type Department Care Team (Late st Contact Info) Description 04/14/2025 1:00 PM EDT Nutrition [facility] DIABETES/NUTRITION 230 [place] [address] Haley Vargas, RD 230 [place] [address] 05/27/2025 10:00 AM EST Office Visit [facility] OPTOMETRY [address] [place], [place] [phone] LeviLiliya null, OD 230 [place] [address] documented as of this encounter Visit Diagnoses Not on filedocumented in this encounter Additional Health Concerns Assessment Noted Time PHQ-9 Depression Total Score: 10 023 3:27 PM EDT documented as of this encounter Care Teams Business Resiliency Manager Relationship Specialty Start Date End Date Judy Galvan MD 230 [place], [place] [phone] PCP - General Family Medicine 07/22/18 Anya Curry Geographical Historian 08/29/23 11/27/23 documented as of this encounter
--- OUTSIDE RECORDS SUMMARY | 2025-04-02 11:49 | XMS_ITS | Encounter Summary ---
Author Organization [employer] Address 75 [facility] 7t [place] [address] Care Team Providers Care Conversion Developer Name Role Phone Judy Galvan MD Primary Care Provider + Reason for Visit * Reason Comments Med Refill Encounter Details Date Type Department Care Team ([facility] st Contact Info) Description 08/10/2023 Refill [facility] MEDICINE 230 [place], [place] [phone] Judy Galvan MD 230 [place], [place] [phone] PUD (peptic ulcer disease) Social History Tobacco [...] Info) Description 04/14/2025 1:00 PM EDT Nutrition [facility] DIABETES/NUTRITION 230 [place] [address] [place] [address] 05/27/2025 10:00 AM EST Office Visit [facility] OPTOMETRY [address] [place] [address] Levi, Liliya, OD 230 [place] [address] documented as of this encounter Visit Diagnoses Diagnosis PUD (peptic ulcer disease) Peptic ulcer, unspecified site, unspecified as acute or chronic, without mention of hemorrhage, perforation, or obstruction documented in this encounter Additional Health Concerns Assessment Noted Time PHQ-9 Depression Total Score: 0 06/26/20 23 9:44 AM EST documented as of this encounter Care Teams Conversion Developer Relationship Specialty Start Date End Date Judy Galvan MD 230 [place] [address] PCP - General Family Medicine 07/22/18 Anya Curry Conveyor Mechanic 08/29/23 11/27/23 documented as of this encounter
--- OUTSIDE RECORDS SUMMARY | 2025-04-02 11:49 | XMS_ITS | Encounter Summary ---
Author Organization [employer] Address 75 [facility] 7t [place] [address] Care Team Providers Care Avid Editor Name Role Phone Judy Galvan MD Primary Care Provider + Encounter Details Date Type Department Care Team ([facility] st Contact Info) Description 02/06/2025 Results Follow-Up [facility] MEDICINE 230 [place], [place] [phone] Judy Galvan MD 230 [place], [place] [phone] XR Foot 3+ Views Left Social History [...] Description 04/14/2025 1:00 PM EDT Nutrition [facility] DIABETES/NUTRITION [address] [place] [address] Haley Vargas, RD 230 [place] [address] 05/27/2025 10:00 AM EST Office Visit [facility] OPTOMETRY [address] [place] [address] Levi, Liliya, OD 230 [place] [address] documented as of this encounter Visit Diagnoses Not on filedocumented in this encounter Additional Health Concerns Assessment Noted Time PHQ-9 Depression Total Score: 6 12/26/19 25 10:31 AM EDT documented as of this encounter Care Teams Avid Editor Relationship Specialty Start Date End Date Judy Galvan MD 230 [place] [address] PCP - General Family Medicine 07/22/18 documented as of this encounter
--- OUTSIDE RECORDS SUMMARY | 2025-04-02 11:49 | XMS_ITS | Encounter Summary ---
Author Organization [employer] Address [address] [place] [address] 7 [place] [address] Care Team Providers Care Pv Design And Installation Technician Name Role Phone Judy Galvan MD Primary Care Provider + Encounter Details Date Type Department Care Team (Late st Contact Info) Description 08/04/2022 Orders Only [facility] CHC MED & PEDS [address] [place] [address] Yasmin Garcia LPN Social History Tobacco Use [...] Info) Description 04/14/2025 1:00 PM EDT Nutrition [facility] DIABETES/NUTRITION 230 [place] [address] [place] [address] 05/27/2025 10:00 AM EST Office Visit [facility] OPTOMETRY [address] [place] [address] Liliya Sims, OD 230 [place] [address] documented as of this encounter Visit Diagnoses Not on filedocumented in this encounter Care Teams Pv Design And Installation Technician Relationship Specialty Start Date End Date Judy Galvan MD [address] [place] [address] PCP - General Family Medicine 07/22/18 Anya Curry Supervisory It Specialist 08/29/23 11/27/23 documented as of this encounter
== END 2025-04-02 10:02 | disposition home or self-care (01) ==
LOC: HO.US 10:01
PROVIDERS: PCP Internal Medicine; Visit Provider Internal Medicine
DX: R10.12 Left upper quadrant pain (principal)
CPT/HCPCS: 76700; 76981

== ENCOUNTER → 2025-04-02 10:03 | Outpatient (BNV) | payer MEDICAID, SELFPAY | PROVIDERS: PCP Internal Medicine; Visit Provider Radiology Diagnostic Radiology | DX: K76.0 Fatty (change of) liver, not elsewhere classified (principal) | CPT/HCPCS: 76700 ==

== ENCOUNTER 2025-05-11 13:04 | Outpatient (REF) | payer MEDICAID, SELFPAY ==
--- OUTSIDE RECORDS SUMMARY | 2025-05-11 16:37 | XMS_ITS | Encounter Summary ---
Author Organization [employer] Address 75 [facility] 7t [place] [address] Care Team Providers Care Drum Sander Name Role Phone Judy Galvan MD Primary Care Provider + Encounter Details Date Type Department Care Team (Late st Contact Info) Description 11/12/2024 Orders Only [facility] [address] [place], [place] [phone] Judy Galvan MD 230 [place], [place] [phone] Social History Tobacco Use Types Packs/Day Years [...] Description 05/27/2025 10:00 AM EST Office Visit [facility] OPTOMETRY [address] [place] [address] Levi, Liliya, OD 230 [place] [address] 05/29/2025 9:00 AM EST Clinical Support [facility] DIABETES/NUTRITION [address] [place] [address] Haley Vargas, ANDREW [address] [place] [address] 07/02/2025 10:15 AM EST Office Visit [facility] MEDICINE [address] [place] [address] Judy Galvan MD [address] [place] [address] documented as of this encounter Visit Diagnoses Not on filedocumented in this encounter Additional Health Concerns Assessment Noted Time PHQ-9 Depression Total Score: 0 06/26/20 23 9:44 AM EST documented as of this encounter Care Teams Drum Sander Relationship Specialty Start Date End Date uJdy Galvan MD [address] [place] [address] PCP - General Family Medicine 07/22/18 documented as of this encounter
--- OUTSIDE RECORDS SUMMARY | 2025-05-11 16:37 | XMS_ITS ---
Author Organization [employer] Address [address] [place] [address] 7 [place] [address] Care Team Providers Care Shoe Sprayer Name Role Phone Judy Galvan MD Primary Care Provider + CHW Complex Status:Enrolled (Active) Start date:11/11/2024 Enrollment date:12/24/2024 Enrollment reason:ADT Feed Overview ED- Pt went to [facility] ED on 11/10/24. Case Team Name Relationship Phone Iliana Rae(Responsible Staff) Continued Care and Services Coordination
--- OUTSIDE RECORDS SUMMARY | 2025-05-11 16:37 | XMS_ITS | Encounter Summary ---
Author Organization [employer] Address 75 [facility] 7 [place] [address] Care Team Providers Care Service Cleaner Name Role Phone Judy Galvan MD Primary Care Provider + Reason for Visit * Reason Onset Date Comments Appointment Request 03/10/2025 Encounter Details Date Type Department Care Team ([facility] st Contact Info) Description 03/10/2025 Telephone [facility] MEDICINE [address] [place], [place] [phone] Judy Galvan MD 230 [place], [place] [phone] Appointment Request Social History Tobacco Use Types [...] Description 05/27/2025 10:00 AM EST Office Visit [facility] OPTOMETRY [address] [place] [address] Levi, Liliya, OD [address] [place] [address] 05/29/2025 9:00 AM EST Clinical Support [facility] DIABETES/NUTRITION [address] [place] [address] [place] [address] 07/02/2025 10:15 AM EST Office Visit [facility] MEDICINE [address] [place] [address] Judy Galvan MD 230 [place], [place] [phone] documented as of this encounter Visit Diagnoses Not on filedocumented in this encounter Additional Health Concerns Assessment Noted Time PHQ-9 Depression Total Score: 6 12/26/19 25 10:31 AM EDT documented as of this encounter Care Teams Service Cleaner Relationship Specialty Start Date End Date Judy Galvan MD [address] [place] [address] PCP - General Family Medicine 07/22/18 documented as of this encounter
--- OUTSIDE RECORDS SUMMARY | 2025-05-11 16:37 | XMS_ITS | Encounter Summary ---
Author Organization [employer] Address [address] [place] [address] 7 [place] [address] Care Team Providers Care Event Marketing Representative Name Role Phone Judy Galvan MD Primary Care Provider + Reason for Visit * Reason Onset Date Comments Appointment Request 01/22/2023 Encounter Details Date Type Department Care Team ([facility] st Contact Info) Description 01/22/2023 Telephone [facility] MEDICINE [address] [place], [place] [phone] Judy Galvan MD 230 [place], [place] [phone] Appointment Request Social History Tobacco Use Types [...] on 12/14/2022 . Please contact pt at [phone] Kazakh Speaker documented in this encounter Plan of Treatment Upcoming Encounters Date Type Department Care Team (Late st Contact Info) Description 05/27/2025 10:00 AM EST Office Visit [facility] OPTOMETRY [address] [place] [address] Levi, Liliya, OD 230 [place] [address] 05/29/2025 9:00 AM EST Clinical Support [facility] DIABETES/NUTRITION [address] [place] [address] Haley Vargas, ANDREW [address] [place] [address] 07/02/2025 10:15 AM EST Office Visit [facility] MEDICINE [address] [place] [address] Judy Galvan MD [address] [place] [address] documented as of this encounter Visit Diagnoses Not on filedocumented in this encounter Additional Health Concerns Assessment Noted Time PHQ-9 Depression Total Score: 10 023 3:27 PM EDT documented as of this encounter Care Teams Event Marketing Representative Relationship Specialty Start Date End Date Judy Galvan MD [address] [place] [address] PCP - General Family Medicine 07/22/18 Anya Curry Irrigation Engineer 08/29/23 11/27/23 documented as of this encounter
--- OUTSIDE RECORDS SUMMARY | 2025-05-11 16:37 | XMS_ITS | Encounter Summary ---
Author Organization [employer] Address 75 [facility] 7t [place] [address] Care Team Providers Care Publishing Systems Analyst Name Role Phone Judy Galvan MD Primary Care Provider + Reason for Visit * Reason Comments Med Refill Encounter Details Date Type Department Care Team ([facility] st Contact Info) Description 08/10/[address] [facility] MEDICINE 230 [place], [place] [phone] Judy Galvan MD 230 [place], [place] [phone] PUD (peptic ulcer disease) Social History Tobacco [...] Description 05/27/2025 10:00 AM EST Office Visit [facility] OPTOMETRY [address] [place] [address] LeviLiliya null, OD 230 [place] [address] 05/29/2025 9:00 AM EST Clinical Support [facility] DIABETES/NUTRITION 230 [place] [address] [place] [address] 07/02/2025 10:15 AM EST Office Visit [facility] MEDICINE [address] [place] [address] Judy Galvan MD 230 [place] [address] documented as of this encounter Visit Diagnoses Diagnosis PUD (peptic ulcer disease) Peptic ulcer, unspecified site, unspecified as acute or chronic, without mention of hemorrhage, perforation, or obstruction documented in this encounter Additional Health Concerns Assessment Noted Time PHQ-9 Depression Total Score: 0 06/26/20 23 9:44 AM EST documented as of this encounter Care Teams Publishing Systems Analyst Relationship Specialty Start Date End Date Judy Galvan MD [address] [place] [address] PCP - General Family Medicine 07/22/18 Anya Curry Onyx Chip Terrazzo Worker 08/29/23 11/27/23 documented as of this encounter
--- OUTSIDE RECORDS SUMMARY | 2025-05-11 16:37 | XMS_ITS | Clinical Summary ---
Author Organization [employer] Address [address] [facility] 7t [place] [address] Care Team Providers Care Ripening Room Hand Name Role Phone Judy Galvan MD Primary [...] Resolved, s/p TH + BSO. Fu with [facility] oncology. Obtain report of surgical biopsy. Assessment & Plan (05/29/2024 1:51 PM EST): Seen by Dr. Neal xxx STEAM AND POWER SUPERINTENDENT in the past, she will have a [...] to diagnosis of EIN. Fu closely with STEAM AND POWER SUPERINTENDENT. Myalgia 03/02/2023 Well woman exam 03/02/2023 TMJ [...] Liver US ) liver elast[place] 03[place]27/[place] showed measurements are consistent with a moderate [...] at least . She [facility]PERINTENDENT ONC. Moderate persistent asthma without complication 07/22/2018 [...] exercise. Pt will continue to fu with special procedure tech at [facility] [place] management program and with provider regarding medication management. Assessment & Plan (05/29/2024 1:53 PM EST): Discussed re weight reduction options including exercise, life style modifications, diet and referral to senior it specialist. Recommended to decrease soda and sugary beverage consumption, increase protein intake with meals (at least 1 portion of protein with each meal) to assist with satiety, increase dietary fiber Recommended at least 150 min/week of moderate intensity exercise. Fu weight management program at [facility]. Resolved Problems Problem Noted Date Diagnosed Date Resolved Date Endometrial carcinoma (CMS/HCC) 05/29/2024 10/02/2024 Assessment & Plan (10/02/2024 1:00 PM EDT): [...] dentist, ro maxillary bone compromise Cardiovascular collapse (CMS/HCC) 03/02/2023 10/04/2023 COVID-19 03/02/2023 05/29/2024 Encounters Date Type Department Care Team Description 05/01/2025 Patient Outreach [address] [address] Judy Galvan MD 05/01/2025 Patient Outreach [facility] [address] [place], [place] [phone] Judy Galvan MD Error (VOID this visit) 05/01/2025 Patient Outreach [facility] [address] [place] [address], [place] [phone] Judy Galvan MD Care Management (C3CM- Follow Up Call) 04/29/2025 Patient Outreach [address] [address] Judy Galvan MD Care Coordination (C3 CM-W Iliana Rae telephone call outreach) 04/17/[address] [address] Judy Galvan MD oct recall 04/14/2025 1:00 PM EDT Nutrition [facility] DIABETES/NUTRITION [address] [place] [address] Class 3 severe obesity due to excess calories with serious comorbidity and body mass index (BMI) of 45.0 to 49.9 in adult 04/14/2025 Travel 04/07/2025 Travel 03/31/2025 Orders Only GENERIC EXTERNAL DATA DEPARTMENT Provider, Generic External Data 03/24/2025 Orders Only GENERIC EXTERNAL DATA DEPARTMENT Provider, Generic External Data 03/20/2025 Patient Outreach [address] [address] Judy Galvan MD Care Management (C3CM- F/U call # 4) 03/12/[address] [address] Judy Galvan MD Referral 03/10/2025 Telephone [facility] MEDICINE [address] [place] [phone] Judy Galvan MD Appointment Request 02/26/2025 Patient Outreach [address] [address] Judy Galvan MD Care Coordination (C3 -[facility] telephone call outreach) 02/24/2025 Patient Outreach [address] [address] Judy Galvan MD Care Management ([facility]- F/U call # 3) 02/13/2025 Patient Outreach [address] [address] Judy Galvan MD Care Management ([facility]- F/U call # 2) 02/12/2025 Patient Outreach [address] [address] Judy Galvan MD Care Coordination (C3 - [facility] telephone call outreach) from Last 3 Months Immunizations Immunization Administration [...] EDT Inhaled Oxygen Concentration - - Weight 122 kg (268 lb 3.2 oz) 04/16/2025 1:30 PM EDT Height 157.5 cm (5' 2 ) 04/16/2025 1:30 PM EDT Body Mass Index 49.05 04/16/2025 1:30 PM EDT Plan of Treatment Upcoming Encounters Date Type Department Care Team (Late st Contact Info) Description 05/27/2025 10:00 AM EST Office Visit [facility] OPTOMETRY [address] [place] [address] Liliya Sims, OD [address] [place] [address] 05/29/2025 9:00 AM EST Clinical Support [facility] DIABETES/NUTRITION [address] [place] [address] Haley Vargas, ANDREW [address] [place] [address] 07/02/2025 10:15 AM EST Office Visit [facility] MEDICINE [address] [place] [address] Judy Galvan MD [address] [place] [address] Health Maintenance Due Date Last Done Comments [...] WITH ELASTOGRAPHY Routine 04/02/2025 10:45 AM EDT LIVER FIBROSIS, FIBROTEST ACTITEST PANEL Routine 03/31/2025 2:20 PM EDT HEPATIC FUNCTION PANEL Routine 12:21 PM EDT LIPID PANEL, STANDARD Routine 11/10/2024 9:20 PM EDT BI MAMMOGRAM SCREENING TOMOSYNTHESIS BILATERAL Routine 07/27/2023 11:27 AM EST [facility] HISTORICAL HEPATITIS C AB W/REFL TO HCV RNA, QN, PCR Routine 03/04/2021 10:50 AM EDT HM COLONOSCOPY Routine 12/08/2020 2:43 PM EDT ZZZ HISTORICAL HPV E6/E7 RFLX IRVING 16 Routine 07/29/2020 10:17 AM EST from Last 3 Months or Most Recently Relevant to Health Maintenance Results * US Abdomen Comp w elastography (04/02/2025 10:45 AM EDT) Anatomical Region Laterality Modality Abdomen Ultrasound 04/02/2025 10:4 5 AM EDT Narrative 04/02/2025 11:30 AM EDT [place] [address] Ultrasound Report Signed Patient: Elza Bhardwaj MR#: [id number] : 1970 Acct:[id number] Age/Sex: 55 / F ADM Date: 04/02/25 Loc: .US Attending Dr: Judy Galvan MD [facility] of Service: 04/02/25 Procedure(s): US abdomen comp w elastography Accession Number(s): [id number] cc: Judy Galvan MD; Stacey Clark-AFUA Reason for Exam: FATTY LIVER, LUQ PAIN [...] 04/02/25 1128 DD/ 1045 TD/TT: 04/02/25 1059 Executive Chef Assistant: Procedure Note Donotuseinterpreter, Image - 04/02/2025 [place] [address] Ultrasound Report Signed Patient: Marvin Bhardwaj#: [id number] : 1970Acct:[id number] Age/Sex: 55 / FADM Date: 04/02/25 Loc: HO.US Attending Dr: Judy Galvan MD Ordering Physician: Stacey Clark Date of Service: 04/02/25 Procedure(s): US abdomen comp w elastography Accession Number(s): [id number] cc: Judy Galvan MD; Stacey Clark Reason [...] 04/02/25 1128 DD/ 1045 TD/TT: 04/02/25 1059 Executive Chef Assistant: us [facility] External Provider IM US PROCEDURES Edited Result - Final * (ABNORMAL) Liver Fibrosis (HCV), FibroTest-ActiTest Panel (03/31/2025 2:20 PM EDT) Liver Fibrosis Score 0.03 [facility] Liver Fibrosis Stage F0 [facility] Liver Fibrosis Interpretation SEE NOTE [facility] Comment:no fibrosisFibro Brynn t Score (f) Metavir Score f>=0 and f<=0.21 : F0 (no fibrosis)f>0.21 and f<=0.27 : F0-F1 (no fibrosis)f>0.27 and f<=0.31 : F1 (minimal fibrosis)f>0.31 and f<=0.48 : F1-F2 (minimal fibrosis)f>0.48 and f<=0.58 : F2 (moderate fibrosis)f>0.58 and f<=0.72 : F3 (advanced fibrosis)f>0.72 and f<=0.74 : F3-F4 (advanced fibrosis)f>0.74 and f<=1.00 : F4 (severe fibrosis) Nec Inflam Act Score 0.05 [facility] Nec Inflam Act Grade A0 [facility] Nec Inflam Act Interpretation SEE NOTE [facility] Comment:no activityActiTest Score (a) Metavir Score a>=0 and a<=0.17 : A0 (no activity)a>0.17 and a<=0.29 : A0-A1 (no activity)a>0.29 and a<=0.36 : A1 (minimal activity)a>0.36 and a<=0.52 : A1-A2 (minimal activity)a>0.52 and a<=0.60 : A2 (significant activity)a>0.60 and a<=0.62 : A2-A3 (significant activity)a>0.62 and a<=1.00 : A3 (severe activity) OAJ-Rcphg-5-Macroglo bulin 200 106 - 279 mg/dL [facility] FIB-Haptoglobin 242(A) 43 - 212 mg/dL [facility] FIB-Apolipoprotein A1 284(A) 101 - 198 mg/dL [facility] Comment:This value is highly elevated over the 99 percentile. Checkthe value. Usual maximum value is 250.0 mg/dl. FIB-Total Bilirubin 0.4 0.2 - 1.2 mg/dL [facility] FIB-GGT 31 3 - 70 U/L [facility] FIB-ALT 20 6 - 29 U/L [facility] Reference ID [id number] [facility] Footnote SEE NOTE [facility] Comment: The reliability of results is dependent on compliance withthe preanalytical and analytical conditions recommended by[employer]. The tests have to be deferred for: acutehemolysis, acute hepatitis, acute inflammation, extrahepatic cholestasis. The advice of a specialist should besought for interpretation in chronic hemolysis and Gilbert'ssyndrome. The test interpretation is not validated in livertransplant patients. Isolated extreme values of one of thecomponents should lead to caution in interpreting theresults. In case of discordance between a biopsy result aramis test, it is recommended to seek the advice of aspecialist. The causes of these discordances could be due toa flaw of the test or to a flaw in the biopsy: i.e. a liverbiopsy has a 33% variability rate for one fibrosis stage.FibroTest is interpretable for chronic hepatitis B and C,alcoholic and non alcoholic steatosis. ActiTest isinterpretable for chronic hepatitis B and C.The performance characteristics have been determined by[employer] [facility]. Ithas not been cleared or approved by the U.S. Food and DrugAdministration. Performance characteristics refer to theanalytical performance of the test.XTRM, the associated logo, [employer] and all associated [employer] meier are theregistered trademarks of [employer]. All third partymarks - (R) and (TM) - are the property of their respectiveowners. (C) 2791-8423 [employer]. Allrights reserved.THIS TEST WAS PERFORMED AT:[employer] [id number] [place] [address]YYBEEPAM FISCHER MD,PHD,ENEIDA 03/31/2025 2:20 PM EDT 03/31/2025 2:20 PM EDT us Generic External Data Provider LAB BLOOD ORDERAB LES Final Result [facility] [address] [place] [phone] * (ABNORMAL) Hepatic Function Panel (03/24/2025 12:21 PM EDT) Bilirubin, Total 0.5 0.0 - 1.0 mg/dL [facility] Bilirubin, Direct 0.2 0.0 - 0.5 mg/dL [facility] Aspartate Amino Transferase 30 5 - 31 U/L [facility] Alanine Aminotransferase 43(H) 0 - 31 U/L [facility] Total Protein 7.0 6.5 - 8.0 g/dL [facility] Albumin Level 4.3 3.5 - 5.0 g/dL [facility] Alkaline Phosphatase 97 39 - 117 U/L [facility] 03/24/2025 12:2 1 PM EDT 03/24/2025 12:21 PM EDT us Generic External Data Provider LAB BLOOD ORDERAB LES Final Result [facility] [address] [place] [phone] * (ABNORMAL) Lipid Panel, Standard (11/10/2024 9:20 PM EDT) Triglycerides 88 <150 mg/dL [facility] Comment:Desirable Triglyceri de: less than 150 mg/dLBorderline High Triglyceride 150-199 mg/dLHigh Triglyceride: 200-499 mg/dLVery High Triglyceride: greater than or equal to 5OO mg/dL Cholesterol 212(H) <200 mg/dL [facility] Comment:Desirable Cholestero l: less than 200 mg/dLBorderline High Cholesterol: 200-239 mg/dLHigh Cholesterol: greater than 239 mg/dL LDL Cholesterol Calculated 95 <100 mg/dL [facility] Comment:Desirable LDL: less than 100 mg/dLNear Optimal/Above Optimal LDL: 110- 129 mg/dLBorderline High LDL: 130-159 mg/dLHigh LDL: 160-189 mg/dLVery High LDL: greater than or equal to 190 mg/dL HDL Cholesterol 100 >40 mg/dL [facility] Comment:Desirable HDL: great er than 40 mg/dL Note: This HDL assay may give artificially low results in patients with liver disease. 11/10/2024 9:20 PM EDT 11/10/2024 9:22 PM EDT us Generic External Data Provider LAB BLOOD ORDERAB LES Final Result [facility] [address] [place] [phone] [phone] * BI Mammogram Screening Tomosynthesis Bilateral (07/27/2023 11:27 AM EST) Anatomical Region Laterality Modality Breast Bilateral Mammography 07/27/2023 11:2 7 AM EST Narrative 08/14/2023 4:56 PM EST [facility] [address] [place] [address] Mammography Report Signed Patient: Elza Bhardwaj MR#: [id number] : 1970 Acct:[id number] Age/Sex: 53 / F ADM Date: 07/27/23 Loc: .MAMMO Attending Dr: Judy Galvan MD Ordering Physician: Judy Galvan MD Results: 1Ne gative Date of Service: 07/27/23 Follow Up: 1 Year From [facility] Mammogram Procedure(s): MM tomosynthesis screening BI Accession Number(s): [id number] cc: Judy Galvan MD EXAMINATION: MM SCREENING [...] by Shivani Sarabia MD in OV> 08/14/23 165 DD/ 1127 TD/TT: Executive Chef Assistant: Procedure Note Donotuseinterpreter, Image - 08/14/2023 [facility] [address] [place] [address] Mammography Report Signed Patient: Marvin Bhardwaj#: [id number] : 1970Acct:[id number] Age/Sex: 53 / FADM Date: 07/27/23 Loc: HO.MAMMO Attending Dr: Judy Galvan MD Ordering Physician: Judy Galvan MDResults: 1Ne gative Date of Service: 07/27/23Follow Up: 1 Year From Orig inal Mammogram Procedure(s): MM tomosynthesis screening BI Accession Number(s): [id number] cc: Judy Galvan MD EXAMINATION: MM SCREENING [...] by Shivani Sarabia MD in OV> 08/14/23 165 DD/ 1127 TD/TT: Executive Chef Assistant: Judy Galvan MD IMG BI PROCEDURES Final Result * HEPATITIS C AB W/REFL TO HCV RNA, QN, PCR (03/04/2021 10:50 AM EDT) HEPATITIS C ANTIBODY NON-REACT GIULIANO NON-REACT GIULIANO [facility] INDEX 0.03 <1.00 [facility] Comment: HCV antibody was non-reactive. There is no laboratory evidence of HCV infection. In most cases, no further action is required. However, if recent HCV exposure is suspected, a test for HCV RNA (test code 10289) is suggested. For additional information please refer to http://education.BigRoad/faq/WXO88s7 (This link is being provided for informational/ educational purposes only.) 03/04/2021 10:5 0 AM EDT Saran Elise MD HISTORICAL/NON ORDERABLE LAB S Final Result [facility] Anywhere [address] * Hm Colonoscopy (12/08/2020 2:43 PM EDT) Historical Provider HEALTH MAINTENANCE Final Result * HPV E6/E7 RFLX IRVING 16 18/45 (07/29/2020 10:17 AM EST) Pathologist [facility] HPV 16 RNA [facility] HPV 18/45 RNA [facility] HPV E6 E7 ADD [facility] HPV mRNA E6/E7 rflx Not Detected Not Detected [facility] Comment: This test was performed using the APTIMA HPV Assay ([employer] This assay detects E6/E7 viral messenger RNA (mRNA) from 14 high-risk HPV types (16,18,31,33,35,39,45,51,52,56,58,59,66,68). The analytical performance characteristics of this assay have been determined by [employer]. The modifications have not been cleared or approved by the FDA. This assay has been validated pursuant to the CLIA regulations and is used for clinical purposes. THIS TEST WAS PERFORMED AT: [facility] [address] [facility] [address],[place] [address] AVIS PARKER MD 07/29/2020 10:1 7 AM EST us Juan Jose Gill MD HISTORICAL/NON ORDERABLE LABS Fi nal Result [facility] [address] from Last 3 Months or Most Recently Relevant to Health Maintenance Insurance [facility] C3 Care Teams Ripening Room Hand Relationship Specialty Start Date End Date Judy Galvan MD [address] [place] [phone] PCP - General Family Medicine 07/22/18
--- OUTSIDE RECORDS SUMMARY | 2025-05-11 16:37 | XMS_ITS | Encounter Summary ---
Author Organization [employer] Address [address] [facility] 7t [place] [address] Care Team Providers Care Crankshaft Grinder Name Role Phone Judy Galvan MD Primary Care Provider + Reason for Visit * Reason Comments Med Refill Encounter Details Date Type Department Care Team ([facility] st Contact Info) Description 08/17/2023 Refill [facility] MEDICINE [address] [place], [place] [phone] uJdy Galvan MD 230 [place], [place] [phone] Asthma, unspecified asthma severity, unspecified whether complicated, [...] Description 05/27/2025 10:00 AM EST Office Visit [facility] OPTOMETRY [address] [place] [address] Liliya Sims, OD [address] [place] [address] 05/29/2025 9:00 AM EST Clinical Support [facility] DIABETES/NUTRITION [address] [place] [address] Haley Vargas, ANDREW [address] [place] [address] 07/02/2025 10:15 AM EST Office Visit [facility] MEDICINE [address] [place] [address] Judy Galvan MD [address] [place] [phone] documented as of this encounter Visit Diagnoses Diagnosis Asthma, unspecified asthma severity, unspecified whether complicated, unspecified whether persistent documented in this encounter Additional Health Concerns Assessment Noted Time PHQ-9 Depression Total Score: 0 06/26/20 23 9:44 AM EST documented as of this encounter Care Teams Crankshaft Grinder Relationship Specialty Start Date End Date Judy Galvan MD [address] [place] [phone] PCP - General Family Medicine 07/22/18 Anya Curry Health Analytics Consultant 08/29/23 11/27/23 documented as of this encounter
--- OUTSIDE RECORDS SUMMARY | 2025-05-11 16:37 | XMS_ITS | Encounter Summary ---
Author Organization [employer] Address [address] [facility] 7t [place] [address] Care Team Providers Care Investment Representative Name Role Phone Judy Galvan MD Primary Care Provider + Encounter Details Date Type Department Care Team (Late st Contact Info) Description 11/26/2023 Orders Only [facility] MEDICINE [address] [place] [address] Provider, MD Kirstin Social History Tobacco Use [...] Description 05/27/2025 10:00 AM EST Office Visit [facility] OPTOMETRY [address] [place] [address] Liliya Sims, OD [address] [place] [address] 05/29/2025 9:00 AM EST Clinical Support [facility] DIABETES/NUTRITION [address] [place] [address] Haley Vargas, ANDREW [address] [place] [address] 07/02/2025 10:15 AM EST Office Visit [facility] MED[facility] [address] [place] [address] Judy Galvan MD [address] [place] [address] documented as of this encounter Procedures Procedure [...] documented as of this encounter Care Teams Investment Representative Relationship Specialty Start Date End Date Judy Galvan MD [address] [place] [address] PCP - General Family Medicine 07/22/18 Anya Curry Carpenter Wooden Tank Erecting 08/29/23 11/27/23 documented as of this encounter
--- OUTSIDE RECORDS SUMMARY | 2025-05-11 16:37 | XMS_ITS | Encounter Summary ---
Author Organization [employer] Address [address] [facility] 7t [place] [address] Care Team Providers Care Suture Gauger Name Role Phone Judy Galvan MD Primary Care Provider + Reason for Visit * Reason Comments Med Refill Encounter Details Date Type Department Care Team ([facility] st Contact Info) Description 11/29/[address] [facility] MEDICINE [address] [place], [place] [phone] Judy Galvan MD [address] [place], [place] [phone] Social History Tobacco Use Types Packs/Day Years [...] 05/27/2025 10:00 AM EST Office Visit [facility] OPTOMETRY [address] [place] [address] Levi, Liliya, OD [address] [place] [address] 05/29/2025 9:00 AM EST Clinical Support [facility] DIABETES/NUTRITION [address] [place] [address] [place] [address] 07/02/2025 10:15 AM EST Office Visit [facility] MEDICINE [address] [place] [address] Judy Galvan MD [address] [place] [address] documented as of this encounter Visit Diagnoses Not on filedocumented in this encounter Additional Health Concerns Assessment Noted Time PHQ-9 Depression Total Score: 7 11/19/19 25 1:52 PM EDT documented as of this encounter Care Teams Suture Gauger Relationship Specialty Start Date End Date Judy Galvan MD [address] [place] [phone] PCP - General Family Medicine 07/22/18 documented as of this encounter
--- OUTSIDE RECORDS SUMMARY | 2025-05-11 16:37 | XMS_ITS | Encounter Summary ---
Author Organization [employer] Address 75 [facility] 7t [place] [address] Care Team Providers Care Cam Maker Name Role Phone Judy Galvan MD Primary Care Provider + Encounter Details Date Type Department Care Team ([facility] Contact Info) Description 01/02/2023 Abstract [facility] MEDICINE [address] [place] [address] Judy Galvan MD [address] [place] [address] Social History Tobacco Use Types Packs/Day Years [...] Description 05/27/2025 10:00 AM EST Office Visit [facility] OPTOMETRY [address] [place] [address] Liliya Sims, OD [address] [place], [place] [phone] 05/29/2025 9:00 AM EST Clinical Support [facility] DIABETES/NUTRITION [address] [place], [place] [phone] Haley Vargas, RD [address] [place], [place] [phone] 07/02/2025 10:15 AM EST Office Visit [facility] MEDICINE [address] [place] [address] [phone] Judy Galvan MD [address] [place], [place] [phone] documented as of this encounter Visit Diagnoses Not on filedocumented in this encounter Additional Health Concerns Assessment Noted Time PHQ-9 Depression Total Score: 10 023 3:27 PM EDT documented as of this encounter Care Teams Cam Maker Relationship Specialty Start Date End Date Judy Galvan MD [address] [place] [address] [phone] PCP - General Family Medicine 07/22/18 Anya Curry Business Applications Developer 08/29/23 11/27/23 documented as of this encounter
--- OUTSIDE RECORDS SUMMARY | 2025-05-11 16:37 | XMS_ITS | Encounter Summary ---
Author Organization [employer] Address 75 [facility] 7 [place] [address] Care Team Providers Care Senior Programmer Name Role Phone Judy Galvan MD Primary Care Provider + Encounter Details Date Type Department Care Team (Late st Contact Info) Description 08/04/2022 Orders Only [facility] MED [facility] PEDS [address] [place] [address] Yasmin Garcia LPN Social History Tobacco Use [...] Description 05/27/2025 10:00 AM EST Office Visit [facility] OPTOMETRY [address] [place] [address] Liliya Sims, OD [address] [place] [address] 05/29/2025 9:00 AM EST Clinical Support [facility] DIABETES/NUTRITION [address] [place] [address] [place] [address] 07/02/2025 10:15 AM EST Office Visit [facility] MEDICINE [address] [place] [address] Judy Galvan MD [address] [place] [address] documented as of this encounter Visit Diagnoses Not on filedocumented in this encounter Care Teams Senior Programmer Relationship Specialty Start Date End Date Judy Galvan MD [address] [place] [address] PCP - General Family Medicine 07/22/18 Anya Curry Analysis Reporting Developer 08/29/23 11/27/23 documented as of this encounter
--- OUTSIDE RECORDS SUMMARY | 2025-05-11 16:37 | XMS_ITS | Encounter Summary ---
Author Organization [employer] Address [address] [place] [address] 7 [place] [address] Care Team Providers Care Wagon Drill Operator Name Role Phone Judy Galvan MD Primary Care Provider + Encounter Details Date Type Department Care Team (Latest Contact Info) Description 03/05/2019 Abstract [facility] CONVERSIONS Dental, Provider, DDS Social History [...] 05/27/2025 10:00 AM EST Office Visit [facility] OPTOMETRY [address] [place] [address] Levi, Liliya, OD [address] [place] [address] 05/29/2025 9:00 AM EST Clinical Support [facility] DIABETES/NUTRITION [address] [place] [address] [place] [address] 07/02/2025 10:15 AM EST Office Visit [facility] MEDICINE [address] [place] [address] Judy Galvan MD [address] [place], [place] [phone] documented as of this encounter Visit Diagnoses Not on filedocumented in this encounter Care Teams Wagon Drill Operator Relationship Specialty Start Date End Date Judy Galvan MD [address] [place] [id number] PCP - General Family Medicine 07/22/18 Anya Curry Coconut Boiler 08/29/23 11/27/23 documented as of this encounter
--- OUTSIDE RECORDS SUMMARY | 2025-05-11 16:37 | XMS_ITS | Clinical Summary ---
Author Organization [facility] ity Address [address] [place] [address] Care Team Providers Care Home Care Manager Rn Name Role Phone Judy Galvan MD Primary Care Provider [phone] Surgical History Surgery Date Site/Laterality Comments TUBAL [...] Last Done Comments Breast Cancer Screening 1970 Colorectal Cancer Screening: Colonoscopy 1970 DTaP,Tdap,and Td Vaccines (1 - Tdap) 1989 Hepatitis B Vaccines (1 of 3 - 19+ 3-dose series) 1989 Pneumococcal Vaccine: 50+ Ye ars (1 of 2 - PCV) 1989 Cervical Cancer Screening: P ap Smear 1991 RSV Immunization Adult Patie nts (1 - Risk 50-74 years 1-dose series) 01/22/2020 Zoster Vaccines (1 of 2) 01/22/2020 Cholesterol Screening (Lipid Panel) 08/14/2023 HIV Screening 08/14/2023 Hepatitis C Screening [...] age to complete this topic Care Teams Home Care Manager Rn Relationship Specialty Start Date End Date Judy Galvan MD [address] [place] [phone] PCP - General 11/28/22
== END 2025-05-11 13:05 | disposition home or self-care (01) ==
LOC: HO.MAMMO 13:04
PROVIDERS: PCP Internal Medicine; Visit Provider Internal Medicine
DX: Z12.31 Encounter for screening mammogram for malignant neoplasm of breast (principal)
CPT/HCPCS: 77063; 77067

== ENCOUNTER → 2025-05-11 13:15 | Outpatient (BNV) | payer MEDICAID, SELFPAY | PROVIDERS: PCP Internal Medicine; Visit Provider Internal Medicine | DX: Z12.31 Encounter for screening mammogram for malignant neoplasm of breast (principal) | CPT/HCPCS: 77063; 77067 ==

== ENCOUNTER 2025-06-01 17:05 | Emergency (ER) | payer MEDICAID, SELFPAY ==
--- NOTE | ~2025-06-01 | CT_ITS ---
CLINICAL HISTORY: right sided headache CT head without contrast Comparison: CT/SR - CT HEAD/BRAIN WO IV CON - 11/10/24 21:57 EDT Findings: BRAIN: No acute infarct, hemorrhage, or mass effect. No abnormal atrophy. CSF SPACES: No hydrocephalus or effacement of basal cisterns. SKULL: No calvarial fracture. SINUSES: No significant mucosal thickening or effusion on limited views. ORBITS: Limited views are unremarkable. OTHER: Negative. IMPRESSION: 1. No acute intracranial findings. This document has been electronically signed by: Chari Holden MD on 06/01/2025 18:50:17
[2025-06-01 17:21] VITALS: BP 142/78; PULSE 63; RESP 18; TEMP 36.4; O2SAT 100; BMI 48.6
--- NOTE | 2025-06-01 17:35 | ED.GENADULT ---
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 Patient reports right-sided headache for the last 3 days She developed tingling in the right side of her mouth and in her index finger only on the right hand. She reports that her pain was at worst a 9/10 Currently her pain is a 4/10. She had a similar episode in October of this year but she felt her symptoms were worse then. She is admitted under went out RI of the brain that ultimately showed findings consistent with migraine headaches She reports pain to both eyes but worse than her right eye. She missed a recent ophthalmology appointment due to car trouble Denies any difficulty with speech, weakness Related Data Home Medications ?Medication ?Instructions ?Recorded ?Confirmed budesonide-formoterol HFA 80 2 puff inhalation BID PRN Wheezing 12/21/22 11/11/24 mcg-4.5 mcg/actuation aerosol inhaler (Symbicort) albuterol sulfate 2.5 mg/3 mL 2.5 mg inhalation TID PRN wheezing 08/16/23 11/11/24 (0.083 %) solution for nebulization albuterol sulfate 90 mcg/actuation 2 puff inhalation Q4H PRN Wheezing 08/16/23 11/11/24 aerosol inhaler (Ventolin HFA) betamethasone valerate 0.1 % 1 appl topical BID 09/05/24 11/11/24 topical cream acetaminophen 500 mg tablet 500 mg PO Q12H PRN pain 11/11/24 11/11/24 Previous Rx's ?Medication ?Instructions ?Recorded lyqyzphwge-bnuoiauvcvmey-gpvsimue 1 tab PO Q4H PRN Migraine Headache 11/12/24 50 mg-325 mg-40 mg tablet #24 tabs cholecalciferol (vitamin D3) 50 50 mcg PO DAILY #90 caps 02/04/25 mcg (2,000 unit) capsule (Vitamin D3) topiramate 25 mg tablet 25 mg PO BEDTIME 90 days #90 tabs 03/12/25 methylcellulose (laxative) 500 mg 1,000 mg (2 x 500 mg) PO DAILY #60 03/31/25 tablet (Citrucel) tabs pantoprazole 20 mg tablet,delayed 20 mg PO DAILY #90 tabs 04/14/25 release Allergies Allergy/AdvReac Type Severity Reaction Status Date / Time No Known Allergies (No Known Allergy Verified 06/01/25 17:34 Allergies*) Review of Systems Constitutional: Constitutional: Denies anorexia, Denies body ache(s), Denies chills, Denies fatigue, Denies fever(s) and Reports headache(s) Eyes: Eyes: Denies blind spots, Denies blurry vision, Denies exophthalmos, Denies change in vision and Reports eye pain ENT: Denies vertigo, Denies dizziness and Reports headache(s) Cardiovascular: Cardiovascular: Denies chest pain and Denies dyspnea on exertion Respiratory: Respiratory: Denies cough and Denies dyspnea on exertion Gastrointestinal: Gastrointestinal: Denies abdominal pain, Denies nausea and Denies vomiting Musculoskeletal: Musculoskeletal: Denies back pain and Reports tingling Integumentary/Breasts: Skin/Breast: Denies rash Neurologic: Denies vertigo, Denies dizziness, Reports headache(s) and Reports tingling Psychiatric: Psychiatric: Denies anxiety Endocrine: Endocrine: Denies fatigue PMFSH Past Medical History Medical History Left chest thoracotomy scar GERD (gastroesophageal reflux disease) DJD (degenerative joint disease) Lipoma of lung History of COVID-19 Morbid obesity Hypovitaminosis D Asthma Surgical History Hx of total hysterectomy (~06/2024) History of lung surgery History of colonoscopy History of cholecystectomy History of bilateral tubal ligation History of Family History Family History Mother Hypertension Diabetes Father Cancer Daughter No problems noted. 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 Sexual orientation: Straight/Heterosexual Gender identity: Female Physical Exam ED Vital Signs: Vital Signs - 24 hr 06/01/25 17:21 06/01/25 20:23 06/01/25 22:44 Temperature 97.6 F 98.5 F 98.4 F Pulse Rate 63 71 60 Respiratory Rate 18 16 16 Blood Pressure 142/78 H 121/59 L 117/49 L Pulse Oximetry 100 98 97 Oxygen Delivery Method Room Air Room Air 06/01/25 23:25 Temperature 98.4 F Pulse Rate 60 Respiratory Rate 16 Blood Pressure 117/49 L Pulse Oximetry 97 Oxygen Delivery Method BMI result Body Mass Index 48.6 Const General: healthy appearing, comfortable, no acute distress, alert and awake Nutritional Appearance: well nourished Orientation/consciousness: patient oriented x3 HENMT Head: Yes normocephalic and Yes atraumatic Eyes Eyelids: Yes eyelids normal Conjunctivae: conjunctivae normal Sclerae: sclerae normal Corneas: corneas normal Pupils: Equal, round and reactive pupils present EOM: EOMs intact bilaterally Neck Neck: Yes full ROM Resp Effort & Inspection: normal respiratory effort, able to speak in complete sentences and not labored Cardio Rate: regular rate Rhythm: regular rhythm Skin General skin exam: elasticity normal Neuro General: patient oriented x3 Cranial nerves: Yes CN's II-XII intact bilaterally, Yes Equal, round and reactive pupils present and Yes Bilaterally intact EOM present Cognition (Neuro): normal cognition Extrem Other: Moving all extremities well without any obvious deformities Course Course Course Narrative: RME: 55-year-old female presents to ED for right-sided headache right-sided facial tingling and eye pain. Patient states started since the 15. Patient denies any recent trauma nausea neck pain fever or chills. Labs imaging ordered Medications Administered Discontinued Medications Generic Name Dose Route Start Last Admin Trade Name Freq PRN Reason Stop Dose Admin Acetaminophen/Butalbital/Caffeine 1 tab 06/01/25 22:05 06/01/25 22:11 Butalb/Acetamin/Caff 50/325/40 Tablet PO 06/01/25 22:06 1 tab ONCE ONE Administration Ketorolac Tromethamine 30 mg 06/01/25 22:05 06/01/25 22:11 Ketorolac Tromethamine 30 Mg/Ml Vial IM 06/01/25 22:06 30 mg ONCE ONE Administration Medical Decision Making Medical Decision Making [facility] Narrative: 55-year-old female with a past medical history as above presents for evaluation of headaches. She reports tingling in the right side of her face and her right hand. She has had similar symptoms in the past and was diagnosed with migraines on MRI. There was no evidence of ischemia or TIA. Her symptoms are all right-sided and therefore not likely to be indicative of a CVA. I went suspect contralateral extremity symptoms to her facial numbness. She has an NIH stroke score of 0, nonfocal neurologic exam. Her symptoms are consistent with a migraine head of. We will treat as such. She also reports her dress has resolved and her headache has improved. I did check intra-ocular pressure and found to be within normal limits. Right eye was 10.2 and left eye was 10.8 mmHg Differential Diagnosis Differential Diagnoses: The differential diagnosis associated with the presentation includes Acute headache Migraine headache Tension headache Cluster headache TIA CVA less likely Admission/Observation Consideration of admission/observation: Escalation of care including admission/observation considered Lab Data [facility] Lab Attestation statement: I reviewed the patient's lab results. No leukocytosis or anemia. Normal platelet count. No electrolyte abnormalities with pharyngeal. 06/01/25 17:42 06/01/25 17:42 Labs: Lab Results 06/01/25 Range/Units 17:42 WBC 8.2 (4.8-10.8) X10*3/uL RBC 4.60 (4.20-5.50) X10*6/uL Hgb 14.0 (12.0-16.0) g/dl Hct 42.6 (37.0-47.0) % MCV 92.6 (80.0-98.0) fL MCH 30.4 (27.0-33.0) pg MCHC 32.9 (31.0-35.0) g/dl RDW 12.8 (11.0-16.0) % Plt Count 224 (160-400) X10*3/uL MPV 10.4 (9.4-12.3) fL Immature Gran % (Auto) 0.4 (0.0-0.4) % Neut % (Auto) 69.5 (45-73) % Lymph % (Auto) 20.1 (20-40) % Runnels % (Auto) 6.8 (2-11) % Eos % (Auto) 2.8 (0-4) % Baso % (Auto) 0.4 (0-2) % Lymph # (Auto) 1.7 (1.2-4.9) X10*3/uL Runnels # (Auto) 0.6 (0.1-1.2) X10*3/uL Eos # (Auto) 0.2 (0.0-0.4) X10*3/uL Baso # (Auto) 0.0 (0.0-0.2) X10*3/uL Abs Immat Gran (auto) 0.03 (0.00-0.03) X10*3/uL Absolute Neuts (auto) 5.7 (2.0-8.3) x10*3/uL Absolute Nucleated RBC 0.000 (0.0-0.012) X10*3/uL Nucleated RBC % (auto) 0.0 (0.0-0.2) /100WBC ESR 17 (0-20) MM/HR PT 12.3 (11.2-13.5) SEC INR 1.0 (0.9-1.1) APTT 29.5 (26.7-34.1) SEC Sodium 143 (135-145) mmol/L Potassium 4.0 (3.3-5.1) mmol/L Chloride 109 H (96-108) mmol/L Carbon Dioxide 26 (22-29) mmol/L Anion Gap 12 (12-20) BUN 13 (9-16) mg/dL Creatinine 0.67 (0.5-1.4) mg/dL Estim Creat Clear Calc 117.3 Estimated GFR > 60 Random Glucose 98 (60-115) mg/dL Calcium 9.8 D (8.4-10.2) mg/dL Total Bilirubin 0.2 (0.0-1.0) mg/dL AST 25 (5-31) U/L ALT 27 (0-31) U/L Alkaline Phosphatase 116 (39-117) U/L C-Reactive Protein 0.69 H (< or = 0.50) mg/dL Total Protein 7.7 (6.5-8.0) g/dL Albumin 4.6 (3.5-5.0) g/dL Tests considered The following testing was considered but not selected: Consider CT scan of the brain but ultimately deferred due to reassuring exam and history of migraines Discharge Plan Discharge Clinical Impression: Headache, migraine Patient Disposition: Home, Self-Care Instructions: Migraine Headache (ED) Additional Instructions: Your workup in the ER today was reassuring. You were treated for a migraine headache. You may use ibuprofen/Tylenol as needed for any further headaches. Continue to use your topiramate as prescribed. Follow up with your primary doctor, return for new or worsening symptom Prescriptions: No Action cholecalciferol (vitamin D3) [Vitamin D3] 50 mcg (2,000 unit) capsule 50 mcg PO DAILY Qty: 90 3RF pantoprazole 20 mg tablet,delayed release (DR/EC) 20 mg PO DAILY Qty: 90 2RF acetaminophen 500 mg tablet 500 mg PO Q12H PRN (Reason: pain) sgvkemlswr-lwxxtqwjtgtbi-fimx 50-325-40 mg Tablet 1 tab PO Q4H PRN (Reason: Migraine Headache) Qty: 24 0RF budesonide-formoterol [Symbicort] 80-4.5 mcg/actuation HFA aerosol inhaler 2 puff inhalation BID PRN (Reason: Wheezing) albuterol sulfate [Ventolin HFA] 90 mcg/actuation HFA aerosol inhaler 2 puff inhalation Q4H PRN (Reason: Wheezing) albuterol sulfate 2.5 mg /3 mL (0.083 %) solution for nebulization 2.5 mg inhalation TID PRN (Reason: wheezing) betamethasone valerate 0.1 % cream 1 appl topical BID topiramate 25 mg tablet 25 mg PO BEDTIME 90 Days Qty: 90 1RF Citrucel 500 mg tablet 1,000 mg PO DAILY Qty: 60 2RF Rx Instructions: take it with full glass of water Stand Alone Forms: Work/School Release Interventions: ED Discharge Assessment Last Done: 06/01/25 23:25 Discharge Date/Time: 06/01/25 23:26 Print Language: Thai
[2025-06-01 17:48] LABS: MANUAL DIFF FLAG NO
[2025-06-01 17:50] LABS: Hematocrit 42.6 % (37.0-47.0); Hemoglobin 14.0 g/dl (12.0-16.0); Imm Gran Abs Auto 0.03 X10*3/uL (0.00-0.03); Imm Gran Pct Auto 0.4 % (0.0-0.4); Lymphocytes Absolute Auto 1.7 X10*3/uL (1.2-4.9); Mean Corpuscular HGB Conc 32.9 g/dl (31.0-35.0); Mean Corpuscular Hemoglobin 30.4 pg (27.0-33.0); Mean Corpuscular Volume 92.6 fL (80.0-98.0); NRBC Abs Auto 0.000 X10*3/uL (0.0-0.012); NRBC Pct Auto 0.0 /100WBC (0.0-0.2); Platelet Count 224 X10*3/uL (160-400); Red Blood Count 4.60 X10*6/uL (4.20-5.50); White Blood Count 8.2 X10*3/uL (4.8-10.8)
[2025-06-01 17:58] LABS: INTERNATIONAL NORM RATIO 1.0 (0.9-1.1); Prothrombin Time 12.3 SEC (11.2-13.5)
[2025-06-01 18:01] LABS: Partial Thromboplastin Time 29.5 SEC (26.7-34.1)
[2025-06-01 18:07] LABS: Alanine Aminotransferase 27 U/L (0-31); Albumin Level 4.6 g/dL (3.5-5.0); Alkaline Phosphatase 116 U/L (39-117); Anion Gap 12 (12-20); Aspartate Amino Transferase 25 U/L (5-31); Blood Urea Nitrogen 13 mg/dL (9-16); Calcium 9.8 mg/dL (8.4-10.2); Carbon Dioxide 26 mmol/L (22-29); Chloride 109 mmol/L (96-108); Creatinine Clr Calc Pharmacy 117.3; Estimated Glomerular Filt Rate > 60; Potassium 4.0 mmol/L (3.3-5.1); Sodium 143 mmol/L (135-145); Total Protein 7.7 g/dL (6.5-8.0)
[2025-06-01 18:27] LABS: Erythrocyte Sedimentation Rate 17 MM/HR (0-20)
[2025-06-01 20:23] VITALS: BP 121/59; PULSE 71; RESP 16; TEMP 36.9; O2SAT 98
[2025-06-01] MEDS: Butalb/Acetamin/Caff 50/325/40 TABLET 1 TAB PO (22:11)
[2025-06-01 22:44] VITALS: BP 117/49; PULSE 60; RESP 16; TEMP 36.9; O2SAT 97
[2025-06-01 23:25] VITALS: BP 117/49; PULSE 60; RESP 16; TEMP 36.9; O2SAT 97
--- OUTSIDE RECORDS SUMMARY | 2025-06-02 07:44 | XMS_ITS | Clinical Summary ---
Author Organization [facility] ity Address [address] [place] [address] Care Team Providers Care Occasional Babysitter Name Role Phone Judy Galvan MD Primary Care Provider Surgical History Surgery Date Site/Laterality Comments TUBAL [...] Depression Screening 07/16/2024 COVID-19 Vaccine (1 - 2024-2 6 season) 2025 Influenza Vaccine (#1) 2025 HIB [...] age to complete this topic Care Teams Occasional Babysitter Relationship Specialty Start Date End Date Judy Galvan MD [address] [place] [phone] PCP - General 11/28/22
== END 2025-06-01 23:26 | disposition home or self-care (01) ==
PROVIDERS: Physician Assistant; Emergency Provider Emergency Medicine; PCP Internal Medicine
DX: G43.909 Migraine, unspecified, not intractable, without status migrainosus (principal); Z79.899 Other long term (current) drug therapy; Z87.891 Personal history of nicotine dependence
CPT/HCPCS: 36415; 70450; 80053; 85025; 85610; 85652; 85730; 86140; 96372; 99284; J1885

== ENCOUNTER → 2025-06-01 17:36 | Outpatient (BNV) | payer MEDICAID, SELFPAY | PROVIDERS: PCP Internal Medicine; Visit Provider Student in an Organized Health Care Education/Training Program | DX: R51.9 Headache, unspecified (principal) | CPT/HCPCS: 70450 ==

== ENCOUNTER 2025-06-08 12:44 | Outpatient (AMB) | payer MEDICAID, SELFPAY ==
--- NOTE | 2025-06-08 12:53 | A.OFFVIS_ITS ---
Intake Visit Reasons: 3 MO FU/ [place] Medical Staff Manager Required: Yes Medical Staff Manager Name: #[phone] Allergies No Known Allergies (No Known Allergies*) Allergy (Verified 06/08/25 12:54) Medication List - Last Reconciled 06/08/25 by Kristy Weller CNP acetaminophen 500 mg PO Q12H PRN albuterol sulfate 90 mcg/actuation (Ventolin HFA) 2 puffs inhalation Q4H PRN albuterol sulfate 2.5 mg inhalation TID PRN betamethasone valerate 0.1% 1 appl topical BID budesonide-formoterol 80-4.5 mcg/actuation (Symbicort) 2 puffs inhalation BID PRN skkrvvizmf-imfablqbwpyqh-jolr 50-325-40 mg 1 tab PO Q4H PRN cholecalciferol (vitamin D3) (Vitamin D3) 50 mcg PO DAILY methylcellulose (laxative) (Citrucel) 1,000 mg (2 x 500 mg) PO DAILY pantoprazole 20 mg PO DAILY topiramate 25 mg PO BEDTIME 90 days HPI Comments Details: 55-year-old woman who was suffering from headaches and associated symptoms. She was seen in 10/2024 at [facility] by Dr. Austin when she presented with complaints of right face and arm numbness and had multiple investigations done including CTA of brain, CTA of brain and neck, an MRI of brain. She was seen at [facility] ER last week for a strong headache with tingling to right side of face and arm that lasted few hours. In general, headaches were better with topiramate. She was getting about 2 headaches/week. She was taking Tylenol as needed which helped some. [facility] Medical History Left chest thoracotomy scar GERD (gastroesophageal reflux disease) DJD (degenerative joint disease) Lipoma of lung History of COVID-19 Morbid obesity Hypovitaminosis D Asthma Surgical History Hx of total hysterectomy (~06/2024) History of lung surgery History of colonoscopy History of cholecystectomy History of bilateral tubal ligation History of Family History Mother Hypertension Diabetes Father Cancer Daughter No problems noted. 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 Sexual orientation: Straight/Heterosexual Gender identity: Female Female Reproductive History Menstrual Age of Menarche: 9 Review of Systems Const Denies chills, Denies daytime sleepiness, Denies difficulty sleeping, Denies fatigue, Denies fever(s), Denies frequent falls, Reports headache(s), Denies increased appetite, Denies poor appetite, Denies snoring, Denies weakness, Denies weight gain and Denies weight loss Eyes Denies loss of vision ENT Denies vertigo, Denies dizziness and Reports headache(s) Card Denies chest pain at rest, Denies chest pain with activity, Denies syncope, Denies leg edema and Denies palpitations Resp Denies snoring GI Denies constipation, Denies heartburn, Denies diarrhea and Denies nausea Denies urinary frequency, Denies urinary incontinence and Denies urinary urgency Musc Denies abnormal gait, Denies numbness and Denies tingling Skin/Breast Denies dry skin and Denies rash Neuro Denies abnormal gait, Denies vertigo, Denies dizziness, Denies syncope, Denies frequent falls, Reports headache(s), Denies lack of coordination, Denies loss of vision, Denies memory loss, Denies numbness, Denies restless legs, Denies seizure-like activity, Denies tingling, Denies paresthesias, Denies tremor(s) and Denies weakness Psych Denies anxiety, Denies depression, Denies auditory hallucinations, Denies memory loss, Denies visual hallucinations and Denies suicidal ideation Endo Denies fatigue and Denies palpitations Physical Exam Const Other: General Appearance:? normal, in no acute distress. Skin:? no rashes, no significant birthmarks. Heart:? S1, S2 normal, no murmurs. Lungs:? clear anteriorly and posteriorly. Extremities:? no edema. Psych:? alert, oriented, cognitive function intact, cooperative with exam. Neuro Other: Mental Status:?Alert and oriented to person, place, and time. Normal attention. Normal spontaneous speech, fluency, and comprehension. No obvious issues with mood and memory. Affect is appropriate. Cranial Nerves:?Pupils are equal, round and reactive to light. External occular muscles are intact. Visual santamaria are full. Face is symmetrical. Facial sensations are normal. Tongue is midline. Palate elevates symmetrically. Shoulder shrugging is normal. Hearing to bedside conversation is normal. Sensory Exam:?....? Coordination:?No ataxia,?no titubation.? Gait Exam: Within normal limits. Extrapyramidal System:?No tremor, rigidity with normal facial expressions.? Pronator Drift:?Not present.? Involuntary Movements:?No tremors seen.? Speech:?Normal.? Results Reviewed Results Reviewed: Laboratory Tests 06/01/25 17:42 WBC 8.2 RBC 4.60 Hgb 14.0 Hct 42.6 MCV 92.6 MCH 30.4 MCHC 32.9 RDW 12.8 Plt Count 224 MPV 10.4 ESR 17 Sodium 143 Potassium 4.0 Chloride 109 H Carbon Dioxide 26 Anion Gap 12 BUN 13 Creatinine 0.67 Estim Creat Clear Calc 117.3 Estimated GFR > 60 Random Glucose 98 Calcium 9.8 D Total Bilirubin 0.2 AST 25 ALT 27 Alkaline Phosphatase 116 C-Reactive Protein 0.69 H Total Protein 7.[address] brain WO at [facility] in Oct 2024: WNL CTA brain and neck at [facility] in Oct 2024: [place] MRI brain WO at [facility] in Oct 2024: Minimal MVD, left frontal venous angioma Assessment & Plan Assessment & Plan (1) Migraine with aura: Code(s): G43.109 - Migraine with aura, not intractable, without status migrainosus Category: Medical Qualifiers: Status migrainosus presence: without status migrainosus Intractability: not intractable Qualified Code(s): G43.109 - Migraine with aura, not intractable, without status migrainosus Plan: Lab results from ER reviewed. Increase topiramate 50mg 1 tablet at bedtime. Start skojyogdos-YOMV-dten 50-325-40mg 1 tablet as needed for headache #10 for 30 days, use/side effects reviewed. She was advised that this medication was combination which included Tylenol and to avoid taking additional Tylenol with this medication. (2) Migraine equivalent syndrome: Code(s): G43.109 - Migraine with aura, not intractable, without status migrainosus Category: Medical Plan . Medications: New topiramate 50 mg PO BID 180 tabs 1RF 90 days ibobpxfhlk-btdufeepgndgc-dfbm 50-325-40 mg 1 tab PO Q8H 10 tabs 2RF headache 30 days Discontinued rocijpvnbz-atwibzdaipvsx-qtld 50-325-40 mg Discontinued Reason: Doctor's Order 1 tab PO Q4H PRN 24 tabs 0RF Migraine Headache topiramate Discontinued Reason: Doctor's Order 25 mg PO BEDTIME 90 days 90 tabs 1RF Coding Level of Care Code Est Pt Level 4 (62398) Diagnoses Migraine with aura and without status migrainosus, not intractable G43.109 Status migrainosus presence: without status migrainosus Intractability: not intractable Migraine equivalent syndrome G43.109
== END 2025-06-08 13:07 | disposition home or self-care (01) ==
LOC: HO.HSM 12:45
PROVIDERS: PCP Internal Medicine; Visit Provider Registered Nurse
DX: G43.109 Migraine with aura, not intractable, without status migrainosus (principal)
CPT/HCPCS: 99214

== ENCOUNTER → 2025-06-08 12:44 | Outpatient (BNVA) | payer MEDICAID, SELFPAY | PROVIDERS: PCP Internal Medicine; Visit Provider Registered Nurse | DX: G43.109 Migraine with aura, not intractable, without status migrainosus (principal) | CPT/HCPCS: 99212 ==

== ENCOUNTER 2025-06-23 09:52 | Outpatient (REF) | payer MEDICAID, SELFPAY ==
--- NOTE | 2025-06-23 | PFT_ITS ---
Spirometry [] Lung Volumes [] Diffusion Capacity [] Methacholine Challenge [] Flow Volume Loops [] MVV [] MIP/MEP(Max inspiratory pressure/Max expiratory pressure) [] 6 Minute Walk Test [] ABG [] Interpretation [] MTDD
[2025-06-23 10:55] VITALS: PULSE 60
== END 2025-06-23 09:53 | disposition home or self-care (01) ==
LOC: HO.RESP 09:52
PROVIDERS: PCP Internal Medicine; Visit Provider Internal Medicine
DX: S20.212D Contusion of left front wall of thorax, subsequent encounter (principal); R06.02 Shortness of breath; J98.11 Atelectasis; Z93.0 Tracheostomy status
CPT/HCPCS: 94060; 94640; 94727; 94729

== ENCOUNTER → 2025-06-23 09:58 | Outpatient (BNV) | payer MEDICAID, SELFPAY | PROVIDERS: PCP Internal Medicine; Visit Provider Internal Medicine Pulmonary Disease | DX: R06.00 Dyspnea, unspecified (principal) | CPT/HCPCS: 94060; 94727; 94729 ==